=== PATIENT | female | born 1995 | race Caucasian/White ===

== ENCOUNTER 2023-01-15 20:30 | Outpatient (REF) | payer BC, SELFPAY ==
[2023-01-18 10:09] LABS: Age Gdln ACOG Testing Note (.); IGP, rfx Aptima HPV ASCU Note (.)
== END 2023-01-15 20:31 | disposition home or self-care (01) ==
LOC: LAB 20:30
PROVIDERS: Visit Provider Obstetrics & Gynecology
DX: R87.612 Low grade squamous intraepithelial lesion on cytologic smear of cervix (LGSIL) (principal); Z11.51 Encounter for screening for human papillomavirus (HPV); Z12.4 Encounter for screening for malignant neoplasm of cervix
CPT/HCPCS: 87624; G0145

== ENCOUNTER 2023-02-18 07:37 | Outpatient (OUT) | payer BC, SELFPAY ==
--- NOTE | 2023-02-18 | US_ITS ---
[address] [address] Patient Name: MARISA ADAN MRN: [id number] date: 1995 Sex: F Assigned Patient Location: Current Patient Location: Accession/Order Number: [id number] Exam Date: 02/18/2023 07:55 Report Date: 02/18/2023 08:53 At the request of: ANGIE TERAN Procedure: US pelvis transvaginal EXAMINATION: US pelvis transvaginal HISTORY: PCOS E28.2 COMPARISON: No relevant comparison available. TECHNIQUE: Transabdominal and/or transvaginal sonographic examination was performed as indicated by examination type. FINDINGS: UTERUS: Normal size and appearance. Uterus size: 7. 63.1 x 4.4 cm ENDOMETRIUM: Normal homogeneous appearance. Endometrial thickness: 6 mm RIGHT OVARY: Normal size and appearance. Duplex Doppler demonstrates normal waveform and flow; resistive index 0.5. Ovary size: 4.1 x 2.0 x 2.5 cm LEFT OVARY: Normal size and appearance. Duplex Doppler demonstrates normal waveform and flow; resistive index 0.5. Ovary size: 2.6 x 1.7 x 2.8 cm CUL-DE-SAC: Unremarkable. No significant free fluid. BLADDER: Unremarkable. OTHER: None. US/US pelvis transvaginal IMPRESSION: 1. Normal pelvic ultrasound. No ultrasound findings to suggest polycystic ovarian syndrome. Electronically authenticated by: JOSÉ MIGUEL LIMON Date: 02/18/2023 08:53
[2023-02-18 08:31] LABS: Basophils Absolute Auto 0.1 10^3/uL (0.0-0.1); Basophils Percent Auto 0.8 % (0.2-2.0); Eosinophils Absolute Auto 0.7 10^3/uL (0.0-0.7); Eosinophils Percent Auto 6.9 % (0.9-7.0); Hematocrit 44.3 % (36.0-48.0); Immature Granulocytes Abs Auto 0.06 10^3/uL (0.00-0.03); Immature Granulocytes Pct Auto 0.6 % (0.0-0.5); Lymphocytes Absolute Auto 3.2 10^3/uL (1.2-3.8); Lymphocytes Percent Auto 32.5 % (20.5-60.0); Mean Corpuscular HGB Conc 33.9 g/dL (29.9-35.2); Mean Corpuscular Hemoglobin 30.8 pg (26.7-34.0); Mean Platelet Volume 10.1 fL (9.5-13.5); Monocytes Absolute Auto 0.8 10^3/uL (0.3-0.8); Monocytes Percent Auto 7.9 % (1.7-12.0); Neutrophils Percent Auto 51.3 % (43.0-75.0); Platelet Count 250 10^3/uL (150-450); Red Blood Count 4.87 10^6/uL (4.20-5.40); Red Cell Distribution Width 12.3 % (11.0-15.0); White Blood Count 9.7 10^3/uL (4.0-11.0)
[2023-02-18 08:57] LABS: Estimated Average Glucose 100 mg/dL; Glycohemoglobin A1C 5.1 % (4.5-6.2)
[2023-02-18 10:03] LABS: Free T4 0.85 ng/dL (0.76-1.46)
[2023-02-18 10:07] LABS: HCG Quantitative <1 mIU/mL; Thyroid Stimulating Hormone 2.443 uIU/mL (0.358-3.740)
[2023-02-19 04:09] LABS: FSH 5.6 mIU/mL (.); Luteinizing Hormone(LH) 15.6 mIU/mL (.)
[2023-02-22 09:09] LABS: DHEA, Serum 192 ng/dL (31-701)
== END 2023-02-18 07:38 | disposition home or self-care (01) ==
LOC: US 07:37
PROVIDERS: Visit Provider Obstetrics & Gynecology
DX: E28.2 Polycystic ovarian syndrome (principal)
CPT/HCPCS: 36415; 76830; 82626; 82627; 83001; 83002; 83036; 84439; 84443; 84702; 85025

== ENCOUNTER 2023-05-21 21:15 | Outpatient (REF) | payer BC, SELFPAY ==
[2023-05-26 17:06] LABS: Age Gdln ACOG Testing Note (.); HPV Aptima Negative (Negative); IGP, Aptima HPV, rfx 16/18,45 Note (.)
== END 2023-05-21 21:16 | disposition home or self-care (01) ==
LOC: LAB 21:15
PROVIDERS: Visit Provider Obstetrics & Gynecology
DX: R87.612 Low grade squamous intraepithelial lesion on cytologic smear of cervix (LGSIL) (principal); Z12.4 Encounter for screening for malignant neoplasm of cervix
CPT/HCPCS: 87624; G0145

== ENCOUNTER 2023-06-27 12:26 | Outpatient (OUT) | payer BC, SELFPAY ==
--- OUTSIDE RECORDS SUMMARY | 2023-06-27 12:29 | XMS_ITS | CCD ---
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 Name Role Phone Unavailable Primary Care Provider UnavailMORALES Renner Referring Unavailable NON STAFF Primary Care Provider UnavailDO Dom Cerda Jr Attending Provider [phone] Bhavya Estrada Primary Care Unavailable Klpatria, Bhavya Primary Care Unavailable Bhavya Estrada Attending Unavailable Sean, Bhavya Primary Care Unavailable JEFFRY ., DR ADAMS Admitting Unavailable JEFFRY ., DR ADAMS Attending Unavailable JEFFRY ., DR ADAMS Consulting Unavailable ZIEBER, DR JOSÉ MIGUEL Garcia Consulting Unavailable JEFFRY ., DR ADAMS Admitting Unavailable JEFFRY ., DR ADAMS Attending Unavailable JEFFRY ., DR ADAMS Consulting Unavailable ANDERSON MORRIS Consulting Unavailable MATILDA IIPANFILO Consulting Unavailable SULEIMAN MENDOZA Consulting Unavailable JEFFRY ., DR ADAMS Attending Unavailable JEFFRY ., DR ADAMS Consulting Unavailable JEFFRY ., DR ADAMS Admitting Unavailable ANGIE VIVAR Attending Unavailable Allergies Allergy Classification Reported Allergen(s) Allergy Type Date of Onset Reaction(s) Facility (2 sources) Amoxicillin; Translations: [amoxicillin] Drug Allergy [facility] Repository (1 source) tiZANidine; Translations: [tiZANidine] Drug Allergy [facility] Repository Problems Problem Classification Problem Date Documented Date Episodic/Chronic Cancer of cervix (5 sources) Low grade squamous intraepithelial lesion on cytologic smear of cervix (LGSIL); Translations: [High grade squamous intraepithelial lesion on cytologic smear of cervix (HGSIL)] Onset: 08-20-2022 Episodic Immunizations and screening for infectious disease (1 source) Encounter for screening for human papillomavirus (HPV); Translations: [ENC SCREENING HUMAN PAPILLOMAVIRUS] Onset: 06-16-2022 Episodic Other screening for suspected conditions (not mental disorders or infectious disease) (4 sources) Encounter for screening for malignant neoplasm of cervix; Translations: [ENC SCREENING MALIG NEOPLASM CERV] Onset: 06-13-2022 Episodic Substance-related disorders (1 source) Nicotine dependence, other tobacco product, uncomplicated; Translations: [NICOTINE DEPEND OTH TOB PROD UNCOMP] Onset: 08-20-2022 Chronic Results Test Name Value Interpretation Reference Range Facility CBC AUTO DIFFon 08-23-2022 BASO # 0.1 103/ul Normal 0.0-0.1 [facility] Comment on above: Performed By: #### C BC #### [facility] [address] [address] [address] Car Lozada Basophils/100 WBC (Bld) 0.5 % Normal 0.2-2.0 [facility] Comment on above: Performed By: #### C BC #### [facility] [address] [address] [address] Car Lozada EO # 0.6 103/ul Normal 0.0-0.7 [facility] Comment on above: Performed By: #### C BC #### [facility] [address] [address] [address] Car Lozada Eosinophils/100 WBC (Bld) 5.9 % Normal 0.9-7.0 [facility] Comment on above: Performed By: #### C BC #### [facility] [address] [address] [address] Car Lozada Erythrocyte distribution width (RBC) [Ratio] 12.6 % Normal 11.0-15.0 [facility] Comment on above: Performed By: #### C BC #### [facility] [address] [address] [address] Car Lozada Hematocrit (Bld) [Volume fraction] 42.0 % Normal 36.0-48.0 [facility] Comment on above: Performed By: #### C BC #### [facility] [address] [address] [address] Car Lozada Hemoglobin (Bld) [Mass/Vol] 14.1 g/dL Normal 12.0-16.0 [facility] Comment on above: Performed By: #### C BC #### [facility] [address] [address] [address] Car Lozada IG # 0.04 10e3/ul Critically high 0.00-0.03 [facility] Comment on above: Performed By: #### C BC #### [facility] [address] [address] [address] Car Lozada IG % 0.4 % Normal 0.0-0.5 [facility] Comment on above: Performed By: #### C BC #### [facility] [address] [place] [address] Dr. Car Lozada LYMPH # 3.6 103/ul Normal 1.2-3.8 [facility] Comment on above: Performed By: #### C BC #### [facility] [address] [place] [address] Dr. Car Lozada Lymphocytes/100 WBC (Bld) 34.7 % Normal 20.5-60.0 [facility] Comment on above: Performed By: #### C BC #### [facility] [address] [place] [address] Dr. Car Lozada MANUAL DIFF REQ NO Normal [facility] Comment on above: Performed By: #### C BC #### [facility] [address] [place] [address] Dr. Car Lozada MCH (RBC) [Entitic mass] 31.2 pg Normal 26.7-34.0 [facility] Comment on above: Performed By: #### C BC #### [facility] [address] [place] [address] Dr. Car Lozada MCHC (RBC) [Mass/Vol] 33.6 g/dL Normal 29.9-35.2 [facility] Comment on above: Performed By: #### C BC #### [facility] [address] [place] [address] Dr. Car Lozada MCV (RBC) [Entitic vol] 92.9 fL Normal 81.0-99.0 [facility] Comment on above: Performed By: #### C BC #### [facility] [address] [address] [address] Car Lozada MONO # 0.9 103/ul Critically high 0.3-0.8 [facility] Comment on above: Performed By: #### C BC #### [facility] [address] [address] [address] Car Lozada Monocytes/100 WBC (Bld) 8.3 % Normal 1.7-12.0 [facility] Comment on above: Performed By: #### C BC #### [facility] [address] [place] [address] Dr. Car Lozada NEUT # 5.2 103/ul Normal 1.4-6.5 [facility] Comment on above: Performed By: #### C BC #### [facility] [address] [place] [address] Dr. Car Lozada Neutrophils/100 WBC (Bld) 50.2 % Normal 43.0-75.0 [facility] Comment on above: Performed By: #### C BC #### [facility] [address] [place] [address] Dr. Car Lozada Platelet mean volume (Bld) [Entitic vol] 10.0 fL Normal 9.5-13.5 [facility] Comment on above: Performed By: #### C BC #### [facility] [address] [place] [address] Dr. Car Lozada PLT 251 103/ul Normal 150-450 [facility] Comment on above: Performed By: #### C BC #### [facility] [address] [place] [address] Dr. Car Lozada RBC 4.52 106/ul Normal 4.20-5.40 [facility] Comment on above: Performed By: #### C BC #### [facility] [address] [place] [address] Dr. Car Lozada WBC 10.3 103/ul Normal 4.0-11.0 [facility] Comment on above: Performed By: #### C BC #### [facility] [address] [address] [address] Car Lozada PREG QUANT HCGon 08-23-2022 HCG QUANT <1 Normal [facility] Comment on above: Performed By: #### P REGQNT #### [facility] [address] [address] [address] Car Lozada HCG RANGE SEE BELOW Normal [facility] Comment on above: Result Comment: 5-50 0.2-1 WEEK 50-500 1-2 WEEKS 100-5,000 2-3 WEEKS 500-10,000 3-4 WEEKS 1,000-50,000 4-5 WEEKS 10,000-100,000 5-6 WEEKS 15,000-200,000 6-8 WEEKS 10,000-100,000 2-3 MONTHS Performed By: #### P REGQNT #### [facility] [address] [place] [address] Dr. Car Lozada XR CHEST 2 Von 08-16-2022 XR CHEST 2 V EXAMINATION: XR CHEST 2 V HISTORY: Electronic cigarette user COMPARISON: No relevant comparison available. FINDINGS: LUNGS: No significant pulmonary parenchymal abnormalities. VASCULATURE: No increased pulmonary vasculature. PLEURA: No pneumothorax, effusion, or pleural thickening. CARDIAC: No cardiomegaly or cardiac silhouette abnormality. MEDIASTINUM: No visible mass or adenopathy. BONES: No fracture or visible bone lesion. OTHER: Negative. IMPRESSION: 1. No acute cardiopulmonary process or suspicious findings. Electronically authenticated by: JOSÉ MIGUEL LIMON Date: 2022-08-16 10:17 Normal [facility] PAP ACOG PANEL 2: 19 to 27on 06-25-2022 . . Normal [facility] Comment on above: Performed By: #### [id number] #### [facility] [address] [place] [address] Dr. Car Lozada Age Gdln ACOG Testing 19- Normal [facility] Comment on above: Performed By: #### [id number] #### [facility] [address] [place] [address] Dr. Car Lozada DIAGNOSIS: Comment Abnormal [facility] Comment on above: Result Comment: EPIT HELIAL CELL ABNORMALITY. LOW GRADE SQUAMOUS INTRAEPITHELIAL LESION (LSIL). Performed By: #### 4 [id number] #### [facility] [address] [place] [address] Dr. Car Lozada Electronically signed by: Comment Normal [facility] Comment on above: Result Comment: Phyllis Vital MD, Pathologist Performed By: #### 4 [id number] #### [facility] [address] [place] [address] Dr. Car Lozada Methodology: Comment Normal [facility] Comment on above: Result Comment: This liquid based ThinPrep(R) pap test was screened with the use of an image guided system. Performed By: #### [id number] #### [facility] [address] [place] [address] Dr. Car Lozada Note: Comment Normal [facility] Comment on above: Result Comment: The Pap smear is a screening test designed to aid in the detection of premalignant and malignant conditions of the uterine cervix. It is not a diagnostic procedure and should not be used as the sole means of detecting cervical cancer. Both false-positive and false-negative reports do occur. . Performed By: #### 4 [id number] #### [facility] [address] [place] [address] Dr. Car Lozada Pathologist Provided ICD10 Comment Normal [facility] Comment on above: Result Comment: [id number] Performed By: #### 4 [id number] #### [facility] [address] [place] [address] Dr. Car Lozada Performed by: Comment Normal [facility] Comment on above: Result Comment: Sidney Masters, County Tax Assessor (ASCP) Performed By: #### [id number] #### [facility] [address] [place] [address] Dr. Car Lozada Recommendation: Comment Abnormal [facility] Comment on above: Result Comment: Sugg est follow up as clinically appropriate. Performed By: #### 4 [id number] #### [facility] [address] [place] [address] Dr. Car Lozada Reflex Criteria: Comment Normal [facility] Comment on above: Result Comment: The HPV DNA reflex criteria were not met with this specimen result therefore, no HPV testing was performed. . Performed By: #### 4 [id number] #### [facility] [address] [address] [address] Car Lozada Specimen adequacy: Comment Normal [facility] Comment on above: Result Comment: Sati sfactory for evaluation. Endocervical and/or squamous metaplastic cells (endocervical component) are present. Performed By: #### 4 [id number] #### [facility] [address] [address] [address] Car Lozada Body fluid albumin measureme nt (mass/volume)Ordered By: Dom Paulino on 12-22-2021 Albumin (Body fld) [Mass/Vol] 3.4 g/dL 3.2-5.5 [facility] Cholesterol [Mass/volume] in Serum or PlasmaOrdered By: Dom Paulino on 12-22-2021 Cholesterol [Mass/Vol] 228 mg/dL 140-200 [facility] Comment on above: Chol less than 200 m g/dl low risk Chol 201-239 mg/dl borderline risk Chol 240 mg/dl and greater high risk Cholesterol in LDL Calc [Mas s/Vol]Ordered By: Dom Paulino on 12-22-2021 Cholesterol in LDL [Mass/Vol] 136 mg/dL 0-100 [facility] Comment on above: LDL ATP III CLASSIFI CATION LDL less than 100 mg/dL Optimal LDL 100-129 mg/dL Near or above optimal LDL 130-159 mg/dL Borderline high LDL 160-189 mg/dL High LDL greater than 189 mg/dL Very high Cholesterol in VLDL Calc [Ma ss/Vol]Ordered By: Dom Paulino on 12-22-2021 Cholesterol in VLDL [Mass/Vol] 19 mg/dL [facility] Comprehensive Metabolic Empo n 12-22-2021 Albumin [Mass/Vol] 3.4 g/dL Normal 3.2-5.5 [facility] Comment on above: Performed By: #### E BS CMP, EBS LIPID #### [facility] [address] Albumin/Globulin [Mass ratio] 1.2 {ratio} Normal [facility] Comment on above: Performed By: #### E BS CMP, EBS LIPID #### [facility] [address] [id number] [place] ALP [Catalytic activity/Vol] 48 U/L Normal 32-92 [facility] Comment on above: Performed By: #### E BS CMP, EBS LIPID #### [facility] [address] [place] [address] [place] ALT [Catalytic activity/Vol] 14 U/L Normal 10-60 [facility] Comment on above: Performed By: #### E BS CMP, EBS LIPID #### [facility] [address] [id number] [place] AST [Catalytic activity/Vol] 15 U/L Normal 10-42 [facility] Comment on above: Performed By: #### E BS CMP, EBS LIPID #### [facility] [address] Bilirubin [Mass/Vol] 0.3 mg/dL Normal 0.3-1.2 [facility] Comment on above: Performed By: #### E BS CMP, EBS LIPID #### [facility] [address] [place] [address] [place] Calcium [Mass/Vol] 9.3 mg/dL Normal 8.2-10.2 [facility] Comment on above: Performed By: #### E BS CMP, EBS LIPID #### [facility] [address] [id number] [place] Chloride [Moles/Vol] 101 mmol/L Normal 95-114 [facility] Comment on above: Performed By: #### E BS CMP, EBS LIPID #### [facility] [address] [id number] [place] CO2 [Moles/Vol] 23.8 mmol/L Normal 22.0-30.0 [facility] Comment on above: Performed By: #### E BS CMP, EBS LIPID #### [facility] [address] [id number] [place] Creatinine [Mass/Vol] 0.79 mg/dL Normal 0.44-1.03 [facility] Comment on above: Performed By: #### E BS CMP, EBS LIPID #### [facility] [address] [place] [address] [place] Estimated GFR ( Aleena > 60 Normal [facility] Comment on above: Result Comment: GFR estimated reference range: According to KDOQI guidelines, <60 ml/min/1.73m2 is sufficient to diagnose a patient with chronic kidney disease. Performed By: #### E BS CMP, EBS LIPID #### [facility] [address] [place] [address] [place] Estimated GFR (Non- Am > 60 Normal [facility] Comment on above: Performed By: #### E BS CMP, EBS LIPID #### [facility] [address] Globulin (S) [Mass/Vol] 2.8 g/dL Normal [facility] Comment on above: Performed By: #### E BS CMP, EBS LIPID #### [address] Glucose [Mass/Vol] 76 mg/dL Normal 70-100 [facility] Comment on above: Performed By: #### E BS CMP, EBS LIPID #### [address] Potassium [Moles/Vol] 3.8 mmol/L Normal 3.5-5.1 [facility] Comment on above: Performed By: #### E BS CMP, EBS LIPID #### [facility] [address] [place] [address] [place] Protein [Mass/Vol] 6.2 g/dL Normal 6.1-7.9 [facility] Comment on above: Performed By: #### E BS CMP, EBS LIPID #### [facility] [address] [place] [address] [place] Sodium [Moles/Vol] 136 mmol/L Normal 136-146 [facility] Comment on above: Performed By: #### E BS CMP, EBS LIPID #### [facility] [address] Urea nitrogen [Mass/Vol] 10 mg/dL Normal 9-23 [facility] Comment on above: Performed By: #### E BS CMP, EBS LIPID #### [facility] [address] [id number] [facility] Creatinine and Glomerular fi ltration rate.predicted panel (S/P/Bld)Ordered By: Dom Paulino on 12-22-2021 Creatinine [Mass/Vol] 0.79 mg/dL 0.44-1.03 [facility] Estimated glomerular filtrat ion rate (GFR) non- AmericanOrdered By: Dom Paulino on 12-22-2021 GFR/1.73 sq M.predicted among non-blacks MDRD (S/P/Bld) [Vol rate/Area] > 60 mL/Min [facility] Globulin Calc (S) [Mass/Vol] Ordered By: Dom Paulino on 12-22-2021 Globulin (S) [Mass/Vol] 2.8 g/dL [facility] - Chemistry and C hemistry - challengeOrdered By: Dom Paulino on 12-22-2021 Glucose [Mass/Vol] 76 mg/dL 70-100 [facility] Lipid Profileon 12-22-2021 Cholesterol [Mass/Vol] 228 mg/dL High 140-200 [facility] Comment on above: Result Comment: Chol less than 200 mg/dl low risk Chol 201-239 mg/dl borderline risk Chol 240 mg/dl and greater high risk Performed By: #### E BS CMP, EBS LIPID #### [facility] [address] [id number] [place] Cholesterol in HDL [Mass/Vol] 73 mg/dL Normal 35-85 [facility] Comment on above: Result Comment: HDL CHOL ATP-III CLASSIFICATION Cardiovascular Risk HDL > or equal to 60 mg/dL LOW HDL < 40 mg/dL HIGH Performed By: #### E BS CMP, EBS LIPID #### [facility] [address] [id number] [facility] Cholesterol.total/Janey sterol in HDL [Mass ratio] 3.1 {ratio} Normal <5.0 [facility] Comment on above: Result Comment: PERF ORMED BY: [facility] [address] [place] [address] PATHOLOGIST CANVAS BASTER DENYS WOO M.D. Performed By: #### E BS CMP, EBS LIPID #### [facility] [address] LDL Cholesterol,Calculated 136 mg/dL High 0-100 [facility] Comment on above: Result Comment: LDL ATP III CLASSIFICATION LDL less than 100 mg/dL Optimal LDL 100-129 mg/dL Near or above optimal LDL 130-159 mg/dL Borderline high LDL 160-189 mg/dL High LDL greater than 189 mg/dL Very high Performed By: #### E BS CMP, EBS LIPID #### [facility] [address] Triglyceride w/Reflex 95 mg/dL Normal 35-149 [facility] Comment on above: Result Comment: TRIG ATP III CLASSIFICATION TRIG less than 150 mg/dL Normal TRIG 150-199 mg/dL Borderline high TRIG 200-500 mg/dL High TRIG greater than 500 mg/dL Very high Standard traceable to the Center for Disease Conrtrol and Prevention (CDC) test method. Performed By: #### E BS CMP, EBS LIPID #### [facility] [address] VLDL CHOLESTEROL 19 mg/dL Normal [facility] Comment on above: Performed By: #### E BS CMP, EBS LIPID #### [facility] [address] No Panel InformationOrdered By: Dom Paulino on 12-22-2021 Estimated GFR () > 60 mL/Min [facility] Comment on above: GFR estimated refere nce range: According to KDOQI guidelines, <60 ml/min/1.73m2 is sufficient to diagnose a patient with chronic kidney disease. Pharmacy Creatinine Clearance (Chem N/A [facility] Triglycerides Reflex 95 mg/dL 35-149 [facility] Comment on above: TRIG ATP III CLASSIF ICATION TRIG less than 150 mg/dL Normal TRIG 150-199 mg/dL Borderline high TRIG 200-500 mg/dL High TRIG greater than 500 mg/dL Very high Standard traceable to the Center for Disease Conrtrol and Prevention (CDC) test method. Protein [Mass/volume] in Ser um or PlasmaOrdered By: Dom Paulino on 12-22-2021 Protein [Mass/Vol] 6.2 g/dL 6.1-7.9 [facility] Serum or plasma alanine pan otransferase measurement without P-5'-P (enzymatic activiOrdered By: Dom Paulino on 12-22-2021 ALT No additional P-5'-P [Catalytic activity/Vol] 14 U/L 10-60 [facility] Serum or plasma albumin/glob ulin mass ratioOrdered By: Dom Paulino on 12-22-2021 Albumin/Globulin [Mass ratio] 1.2 {ratio} [facility] Serum or plasma alkaline nina sphatase measurement (enzymatic activity/volume)Ordered By: Dom Paulino on 12-22-2021 ALP [Catalytic activity/Vol] 48 U/L 32-92 [facility] Serum or plasma aspartate am inotransferase measurement (enzymatic activity/volume)Ordered By: Dom Paulino on 12-22-2021 AST [Catalytic activity/Vol] 15 U/L 10-42 [facility] Serum or plasma calcium dexter urement (mass/volume)Ordered By: Dom Paulino on 12-22-2021 Calcium [Mass/Vol] 9.3 mg/dL 8.2-10.2 [facility] Serum or plasma chloride glenis surement (moles/volume)Ordered By: Dom Paulino on 12-22-2021 Chloride [Moles/Vol] 101 mmol/L 95-114 [facility] Serum or plasma high density lipoprotein (HDL) cholesterol measurementOrdered By: Dom Paulino on 12-22-2021 Cholesterol in HDL [Mass/Vol] 73 mg/dL 35-85 [facility] Comment on above: HDL CHOL ATP-III CLA SSIFICATION Cardiovascular Risk HDL > or equal to 60 mg/dL LOW HDL < 40 mg/dL HIGH Serum or plasma potassium me asurement (moles/volume)Ordered By: Dom Paulino on 12-22-2021 Potassium [Moles/Vol] 3.8 mmol/L 3.5-5.1 [facility] Serum or plasma sodium measu rement (moles/volume)Ordered By: Dom Paulino on 12-22-2021 Sodium [Moles/Vol] 136 mmol/L 136-146 [facility] Serum or plasma total biliru bin measurement (mass/volume)Ordered By: Dom Paulino on 12-22-2021 Bilirubin [Mass/Vol] 0.3 mg/dL 0.3-1.2 [facility] Serum or plasma total carbon dioxide measurement (moles/volume)Ordered By: Dom Paulino on 12-22-2021 CO2 [Moles/Vol] 23.8 mmol/L 22.0-30.0 [facility] Serum or plasma total choles terol/high density lipoprotein (HDL) cholesterol mass ratOrdered By: Dom Paulino on 12-22-2021 Cholesterol.total/Janey sterol in HDL [Mass ratio] 3.1 {ratio} [facility] Serum or plasma urea nitroge n measurement (mass/volume)Ordered By: Dom Paulino on 12-22-2021 Urea nitrogen [Mass/Vol] 10 mg/dL 9-23 [facility] Outside Recordson 09-13-2021 Outside Records [id number][facility]20[facility] Outside Records [id number] #[facility] [id number] #[facility] 07-14-2021 Consent Forms [id number] #1.00[facility] Progress Note - Nurseon Progress Note - Nurse Antigen test ordered, test resulted positive, patient informed of positive result. In house test ordered, patient informed and swabbed, specimen sent to lab. [Electronically Signed on: 07/11/2021 16:04 EST] Kamini Tovar RN [Verified on: 07/11/2021 16:04 EST] Kamini Tovar RN [facility] Progress Note - Nurse Antigen test ordered, test resulted negative, patient informed of negative result. [Electronically Signed on: 07/11/2021 11:45 EST] Kamini Tovar RN [Verified on: 07/11/2021 11:45 EST] Kamini Tovar RN [facility] Measles (Rubeola) Imon 11-28 Measles (Rubeola) Im 3.49 Normal >1.09 [facility] Comment on above: Result Comment: Interpretation: IMMUNE Reference Range: <0.91 Not Immune 0.91-1.09 Equivocal >1.09 Immune Performed By: #### M EI, JUDY, VZI, TSPOT, MEÑO #### [address] [address] Practice Physician: Maury Watts MD Mumps,Immun,Abon 11-28-2020 Mumps,Immun,Ab 1.48 Normal >1.09 [facility] Comment on above: Result Comment: Interpretation: IMMUNE Reference Range: <0.91 Not Immune 0.91-1.09 Equivocal >1.09 Immune Performed By: #### M EI, JUDY, VZI, TSPOT, MEÑO #### [address] [address] Practice Physician: Maury Watts MD T-Spoton 11-28-2020 T-Spot. TB Test Normal [facility] Comment on above: Result Comment: [address] [place] [address] (NOTE) T-SPOT.TB Test Results --------- T-SPOT TB Negative Normal Value: Negative A negative test result does not exclude the possibility of exposure to or infection with Mycobacterium tuberculosis (M tuberculosis). Patients with recent exposure to TB infected individuals exhibiting a negative T-SPOT.TB result should be considered for retesting within 6 weeks or if other relevant clinical symptoms indicate. Results from T-SPOT.TB testing must be used in conjunction with each individual's epidemiological history, current medical status, and results of other diagnostic evaluations. The T-SPOT.TB test is qualitative and results are reported as positive, borderline or negative, given that the test controls perform as expected. In line with the Centers for Disease Control and Prevention's 2010 recommendation to report quantitative measurements alongside the qualitative result, the laboratory provides spot counts for information purposes only. The T-SPOT.TB test should be interpreted as a quantitative test. Panel A Spot Count (Corrected for Negative Control) 0 Panel B Spot Count (Corrected for Negative Control) 0 Negative Control Passed Positive Control Passed Performed By: #### M EI, JUDY, VZI, TSPOT, MEÑO #### [facility] [address] [place], [place] [id number] Practice Physician: Maury Watts MD VZ Immunityon 11-28-2020 VZ Immunity 2.04 Normal >1.09 [facility] Comment on above: Result Comment: Interpretation: IMMUNE Reference Range: <0.91 Not Immune 0.91-1.09 Equivocal >1.09 Immune Performed By: #### M EI, JUDY, VZI, TSPOT, MEÑO #### [facility] [address] [place], [place] [id number] Practice Physician: Maury Watts MD Rubella Ab, IgGon 11-25-2020 Rubella Ab, IgG 150.4 IU/mL Normal [facility] Comment on above: Result Comment: REFERENCE RANGE: <5.0 NON-REACTIVE (non-immune) 5.0 TO 9.9 EQUIVOCAL >=10.0 REACTIVE (immune) Performed By: #### M EI, JUDY, VZI, TSPOT, MEÑO #### [facility] [address] [place] [address] Practice Physician: Maury Watts MD Rubella antibody, IgGOrdered By: Morales Gardner on 11-25-2020 Rubella virus IgG Ql (S) 150.4 IU/mL [facility] Work Phone: Comment on above: REFERENCE RANGE: <5.0 NON-REACTIVE (non-immune) 5.0 TO 9.9 EQUIVOCAL >=10.0 REACTIVE (immune) [facility] [employer] Phone: Encounters Encounter Date Encounter Type Care Provider Facility Start: 05-21-2023 End: 05-21-2023 ambulatory ANGIE VIVAR Not Available Start: 08-23-2022 End: 08-23-[address] ANGIE VIVAR . Facility: Start: 08-20-2022 Encounter for preprocedural respiratory examination DR ANGIE VIVAR . [facility] Start: 08-16-2022 End: 08-17-[address] ANGIE VIVAR . Facility: Start: 08-16-2022 End: 08-17-2022 Encounter for preprocedural respiratory examination DR ANGIE VIVAR . Facility: Start: 06-13-2022 End: 06-13-[address] ANGIE VIVAR . Facility: Start: 04-26-2022 End: 04-27-2022 ambulatory Bhavya Estrada Facility:[facility] Start: 12-22-2021 End: 12-22-2021 Departed [facility]erred [facility] [address] Start: 07-13-2021 End: 07-13-2021 [facility] Start: 07-12-2021 End: 07-12-2021 ambulatory [facility] Facility:[facility] Start: 11-25-2020 End: 11-26-2020 ambulatory MORALES GARDNER [facility] Start: 11-25-2020 End: 11-25-2020 Subsequent hospital visit by physician [facility] Laboratory Procedures Date Procedure Procedure Detail Performing Clinician Start: 11-25-2020 Antibody rubella Omkar Gardner MD Work Phone: Plan of Treatment Date Care Activity Detail Author Start: 03-08-2021 Influenza vaccination Flu vacc ine (Season Ended) [facility] Phone: Start: 2005 COVID-19 Vaccine (1) COVID-19 Vaccin e (1) [facility] Phone: End: 11-25-2020 Mumps Antibody, IgG Mumps Antibody, IgG Lab Routine Once for 1 Occurrences starting 11/25/2020 until 11/25/2020 [facility] Phone: Comment on above: Once for 1 Occurrenc es starting 11/25/2020 until 11/25/2020 Mumps Antibody, IgG Mumps Antibo dy, IgG Lab Routine 11/25/2020 3:18 PM EDT [facility] Phone: End: 11-25-2020 Rubeola Antibody, IgG Rubeola Antibody, IgG Lab Routine Once for 1 Occurrences starting 11/25/2020 until 11/25/2020 [facility] Phone: Comment on above: Once for 1 Occurrenc es starting 11/25/2020 until 11/25/2020 Rubeola Antibody, IgG Rubeola An tibody, IgG Lab Routine 11/25/2020 3:18 PM EDT [facility] Phone: End: 11-25-2020 Tb antigen response gamma interferon t-cell susp T-Spot TB Test Lab Routine Once for 1 Occurrences starting 11/25/2020 until 11/25/2020 [facility] Phone: Comment on above: Once for 1 Occurrenc es starting 11/25/2020 until 11/25/2020 Tb antigen response gamma interferon t-cell susp T-Spot TB Test Lab Routine 11/25/2020 3:18 PM EDT [facility] Phone: End: 11-25-2020 Varicella Zoster Antibody, IgG Varicella Zoster Antibody, IgG Lab Routine Once for 1 Occurrences starting 11/25/2020 until 11/25/2020 [facility] Phone: Comment on above: Once for 1 Occurrenc es starting 11/25/2020 until 11/25/2020 Varicella Zoster Antibody, IgG Varicella Zoster Antibody, IgG Lab Routine 11/25/2020 3:18 PM EDT [facility] Phone: Payers Date Payer Category Payer Unknown [id number] 2020 Unknown [id number] 1993 Unknown [id number] 2.16.84 [id number] 1993 Unknown [id number] 2.16.84 [id number] 1993 Unknown [id number] 2.16.84 [id number] 1993 Unknown [id number] 2.16.84 [id number] 1993 Unknown [id number] 1959 Unknown [id number] Self-pay Self Pay [id number] Social History Date Type Detail Facility Tobacco smoking stat [facility] Unknown if ever smoked [facility] Phone: Start: 1995 Sex Assigned At Not on file M [employer] Phone: Start: 1995 Sex Assigned At Female F [facility] Clinical Note 08-23-2022 Note Date & Type Note Facility 08-23-2022 Note OPERATIVE NOTE OPERATION DATE: 08/23/2022 PROCEDURE: LEEP Procedure. PREOPERATIVE DIAGNOSIS: Cervical dysplasia. POSTOPERATIVE DIAGNOSIS: Cervical dysplasia. ANESTHESIA: General. SURGEON: Angie Vivar D.O. ASSISTANT MERCHANDISER: None. BLOOD LOSS: 5 mL. SPECIMEN: Ectocervical tissue. FINDINGS: Cervical dysplasia at the 2, 7 and 10 positions. PROCEDURE: Patient was taken back to the Operating Room where she was given general anesthesia without difficulty. She was then placed in the dorsal lithotomy position. She was then prepped and draped in the normal sterile fashion. A weighted speculum was placed into the patient's vagina. The anterior lip of the cervix was identified and grasped with a single-tooth tenaculum. The patient's cervix was then copiously irrigated using vinegar. Then, a Lugol Solution was also placed onto the patient's cervix which demonstrated increased uptake of the Lugol solution at the 2 o'clock, 7 o'clock and 10 o'clock positions. At that time, the LEEP portion of the procedure was performed, including the 2 o'clock, 7 o'clock and 10 o'clock positions. The ectocervix was sent out to Pathology. The patient's cervix was then coagulated using suction cautery. Excellent hemostasis was assured. Monsel Solution was then placed onto the patient's cervix to help maintain adequate hemostasis. All instruments were removed from the patient's vagina. The anterior lip of the cervix demonstrated excellent hemostasis. The patient tolerated the procedure well. Sponge, lap, and needle counts were correct x 2. The patient was taken to Recovery Room in stable condition. [facility] Medication management note 06-11-2022 Note Date & Type Note Facility 06-11-2022 Note Entered by Diane Wadsworth on June 11, 2022 09:44:53 EST From: Diane Wadsworth To: [id number] Sent: 06/11/2022 09:44:53 EST Subject: Medication Management Submitted: Complete:desogestrel-ethinyl estradiol (Velivet oral tablet) Signed by Diane Wadsworth 06/11/2022 09:44:00 EST Approved desogestrel-ethinyl estradiol (VELIVET 28 DAY TABLET) take 1 tablet by mouth once daily Qty: 84 tab(s) Days Supply: 84 Refills: 0 Substitutions Allowed Route To Pharmacy - [id number] Signed by Diane Wadsworth Patient matched by Diane Wadsworth on 06/11/2022 09:41:06 EST From: [id number] To: Bhavya Estrada MD Sent: June 11, 2022 8:39:02 AM [employer] MACHINE Subject: Medication Management Due: June 12, 2022 12:05:33 AM [employer] MACHINE On Hold Pending Signature Drug: desogestrel-ethinyl estradiol (Velivet oral tablet), take 1 tablet by mouth once daily Quantity: 84 tab(s) Days Supply: 84 Refills: 1 Substitutions Allowed Notes from Pharmacy: Dispensed Drug: desogestrel-ethinyl estradiol (Velivet oral tablet), take 1 tablet by mouth once daily Quantity: 84 tab(s) Days Supply: 84 Refills: 0 Substitutions Allowed Notes from Pharmacy: [facility] Evaluation note Note Date & Type Note Facility Evaluation note No assessment information availa [facility] Work Phone: Summary Purpose Family History No Family History Records FoundNo Family History Records FoundNo Family History Records FoundNo Family History Records FoundNo Family History Records Found Advance Directives No Advanced Directives Records FoundNo Advanced Directives Records FoundNo Advanced Directives Records FoundNo Advanced Directives Records FoundNo Advanced Directives Records Found Chief Complaint and Reason for Visit 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 Complaint 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 Additional Source Comments INFORMATION SOURCE (unrecogn ized section and content) DATE CREATED AUTHOR 12/02/2020 [facility] DATE CREATED AUTHOR AUTHOR'S ORGANIZ ATION 12/23/2021 [facility] DATE CREATED AUTHOR AUTHOR'S ORGANIZ ATION 06/11/2022 [facility] DATE CREATED AUTHOR AUTHOR'S ORGANIZ ATION 09/05/2022 [facility] DATE CREATED AUTHOR AUTHOR'S ORGANIZ ATION 05/22/2023 [facility] EPIC Care Teams (unrecognized sec tion and content) Team Status: Inactive Member Role Status Dates NON STAFF Primary Care Provider Active Dom Paulino Jr, DO Attending Provider Active Team Status: Active Member Role Status Dates NON STAFF Primary Care Provider Active Goals (unrecognized section and content) Goals may be documented in a n alternate section FOR RECORDS PERTAINING TO PATIENTS WHO ARE OR HAVE BEEN ENROLLED IN A CHEMICAL DEPENDENCY/SUBSTANCEABUSE PROGRAM, SOME INFORMATION MAY BE OMITTED. This clinical summary was aggregated from multiple sources. Caution should be exercised in using it in the provision of clinical care. This summary normalizes information from multiple sources, and as a consequence, information in this document may materially change the coding, format and clinical context of patient data. In addition, data may be omitted in some cases. CLINICAL DECISIONS SHOULD BE BASED ON THE PRIMARY CLINICAL RECORDS. [facility]. provides no warranty or guarantee of the accuracy or completeness of information in this document.
[2023-06-28 04:07] LABS: Progesterone 10.7 ng/mL (.)
== END 2023-06-27 12:27 | disposition home or self-care (01) ==
LOC: LAB 12:27
PROVIDERS: Visit Provider Obstetrics & Gynecology
DX: E28.2 Polycystic ovarian syndrome (principal); N97.0 Female infertility associated with anovulation
CPT/HCPCS: 36415; 84144

== ENCOUNTER 2023-07-26 10:36 | Outpatient (OUT) | payer BC, SELFPAY ==
--- OUTSIDE RECORDS SUMMARY | 2023-07-26 10:39 | XMS_ITS | CCD ---
Author Name Unknown Address [address] [place] [address] Organization [facility] Care Team Providers Care Global Product Manager Name Role Phone Unavailable Primary Care Provider UnavailMORALES Renner Referring Unavailable NON STAFF Primary Care Provider UnavailDO Dom Cerda Jr Attending Provider Bhavya Estrada Primary Care Unavailable Klpatria, Bhavya [...] (2 sources) Amoxicillin; Translations: [amoxicillin] Drug Allergy [facility] Repository (1 source) tiZANidine; Translations: [tiZANidine] Drug Allergy [facility] Repository Problems Problem Classification Problem Date [...] 08-23-2022 BASO # 0.1 103/ul Normal 0.0-0.1 [facility] Comment on above: Performed By: #### C BC #### [facility] [address] [address] [address] Car Lozada Basophils/100 WBC (Bld) 0.5 % Normal 0.2-2.0 [facility] Comment on above: Performed By: #### C BC #### [facility] [address] [address] [address] Car Lozada EO # 0.6 103/ul Normal 0.0-0.7 [facility] Comment on above: Performed By: #### C BC #### [facility] [address] [address] [address] Car Lozada Eosinophils/100 WBC (Bld) 5.9 % Normal 0.9-7.0 [facility] Comment on above: Performed By: #### C BC #### [facility] [address] [address] [address] Car Lozada Erythrocyte distribution width (RBC) [Ratio] 12.6 % Normal 11.0-15.0 [facility] Comment on above: Performed By: #### C BC #### [facility] [address] [address] [address] Car Lozada Hematocrit (Bld) [Volume fraction] 42.0 % Normal 36.0-48.0 [facility] Comment on above: Performed By: #### C BC #### [facility] [address] [address] [address] Car Lozada Hemoglobin (Bld) [Mass/Vol] 14.1 g/dL Normal 12.0-16.0 [facility] Comment on above: Performed By: #### C BC #### [facility] [address] [address] [address] Car Lozada IG # 0.04 10e3/ul Critically high 0.00-0.03 [facility] Comment on above: Performed By: #### C BC #### [facility] [address] [address] [address] Car Lozada IG % 0.4 % Normal 0.0-0.5 [facility] Comment on above: Performed By: #### C BC #### [facility] [address] [place] [address] Dr. Car Lozada LYMPH # 3.6 103/ul Normal 1.2-3.8 [facility] Comment on above: Performed By: #### C BC #### [facility] [address] [place] [address] Dr. Car Lozada Lymphocytes/100 WBC (Bld) 34.7 % Normal 20.5-60.0 [facility] Comment on above: Performed By: #### C BC #### [facility] [address] [place] [address] Dr. Car Lozada MANUAL DIFF REQ NO Normal [facility] Comment on above: Performed By: #### C BC #### [facility] [address] [place] [address] Dr. Car Lozada MCH (RBC) [Entitic mass] 31.2 pg Normal 26.7-34.0 [facility] Comment on above: Performed By: #### C BC #### [facility] [address] [place] [address] Dr. Car Lozada MCHC (RBC) [Mass/Vol] 33.6 g/dL Normal 29.9-35.2 [facility] Comment on above: Performed By: #### C BC #### [facility] [address] [place] [address] Dr. Car Lozada MCV (RBC) [Entitic vol] 92.9 fL Normal 81.0-99.0 [facility] Comment on above: Performed By: #### C BC #### [facility] [address] [address] [address] Car Lozada MONO # 0.9 103/ul Critically high 0.3-0.8 [facility] Comment on above: Performed By: #### C BC #### [facility] [address] [address] [address] Car Lozada Monocytes/100 WBC (Bld) 8.3 % Normal 1.7-12.0 [facility] Comment on above: Performed By: #### C BC #### [facility] [address] [place] [address] Dr. Car Lozada NEUT # 5.2 103/ul Normal 1.4-6.5 [facility] Comment on above: Performed By: #### C BC #### [facility] [address] [place] [address] Dr. Car Lozada Neutrophils/100 WBC (Bld) 50.2 % Normal 43.0-75.0 [facility] Comment on above: Performed By: #### C BC #### [facility] [address] [place] [address] Dr. Car Lozada Platelet mean volume (Bld) [Entitic vol] 10.0 fL Normal 9.5-13.5 [facility] Comment on above: Performed By: #### C BC #### [facility] [address] [place] [address] Dr. Car Lozada PLT 251 103/ul Normal 150-450 [facility] Comment on above: Performed By: #### C BC #### [facility] [address] [place] [address] Dr. Car Lozada RBC 4.52 106/ul Normal 4.20-5.40 [facility] Comment on above: Performed By: #### C BC #### [facility] [address] [place] [address] Dr. Car Lozada WBC 10.3 103/ul Normal 4.0-11.0 [facility] Comment on above: Performed By: #### C BC #### [facility] [address] [address] [address] Car Lozada PREG QUANT HCGon 08-23-2022 HCG QUANT <1 Normal [facility] Comment on above: Performed By: #### P REGQNT #### [facility] [address] [address] [address] Car Lozada HCG RANGE SEE BELOW Normal [facility] Comment on above: Result Comment: 5-50 0.2-1 WEEK 50-500 1-2 WEEKS 100-5,000 2-3 WEEKS 500-10,000 3-4 WEEKS 1,000-50,000 4-5 WEEKS 10,000-100,000 5-6 WEEKS 15,000-200,000 6-8 WEEKS 10,000-100,000 2-3 MONTHS Performed By: #### P REGQNT #### [facility] [address] [place] [address] Dr. Car Lozada XR CHEST 2 Von [...] JOSÉ MIGUEL LIMON Date: 2022-08-16 10:17 Normal [facility] PAP ACOG PANEL 2: 21 to 27on 06-25-2022 . . Normal [facility] Comment on above: Performed By: #### [id number] #### [facility] [address] [place] [address] Dr. Car Lozada Age Gdln ACOG Testing 19- Normal [facility] Comment on above: Performed By: #### [id number] #### [facility] [address] [place] [address] Dr. Car Lozada DIAGNOSIS: Comment Abnormal [facility] Comment on above: Result Comment: EPIT HELIAL CELL ABNORMALITY. LOW GRADE SQUAMOUS INTRAEPITHELIAL LESION (LSIL). Performed By: #### 4 [id number] #### [facility] [address] [place] [address] Dr. Car Lozada Electronically signed by: Comment Normal [facility] Comment on above: Result Comment: Phyllis Vital MD, Pathologist Performed By: #### [id number] #### [facility] [address] [place] [address] Dr. Car Lozada Methodology: Comment Normal [facility] Comment on above: Result Comment: This liquid based ThinPrep(R) pap test was screened with the use of an image guided system. Performed By: #### 4 [id number] #### [facility] [address] [place] [address] Dr. Car Lozada Note: Comment Normal [facility] Comment on above: Result Comment: The Pap smear is a screening test designed to aid in the detection of premalignant and malignant conditions of the uterine cervix. It is not a diagnostic procedure and should not be used as the sole means of detecting cervical cancer. Both false-positive and false-negative reports do occur. . Performed By: #### 4 [id number] #### [facility] [address] [place] [address] Dr. Car Lozada Pathologist Provided ICD10 Comment Normal [facility] Comment on above: Result Comment: [id number]. [id number] Performed By: #### [id number] #### [facility] [address] [place] [address] Dr. Car Lozada Performed by: Comment Normal [facility] Comment on above: Result Comment: Sidney Masters, Meat Cutter Apprentice (ASCP) Performed By: #### 4 [id number] #### [facility] [address] [place] [address] Dr. Car Lozada Recommendation: Comment Abnormal [facility] Comment on above: Result Comment: Sugg est follow up as clinically appropriate. Performed By: #### 4 [id number] #### [facility] [address] [place] [address] Dr. Cra Lozada Reflex Criteria: Comment Normal [facility] Comment on above: Result Comment: The HPV DNA reflex criteria were not met with this specimen result therefore, no HPV testing was performed. . Performed By: #### 4 [id number] #### [facility] [address] [address] [address] Car Lozada Specimen adequacy: Comment Normal [facility] Comment on above: Result Comment: Sati sfactory for evaluation. Endocervical and/or squamous metaplastic cells (endocervical component) are present. Performed By: #### 4 [id number] #### [facility] [address] [address] [address] Car Lozada Body fluid albumin measureme nt (mass/volume)Ordered By: Dom Paulino on 12-22-2021 Albumin (Body fld) [Mass/Vol] 3.4 g/dL 3.2-5.5 [facility] Cholesterol [Mass/volume] in Serum or PlasmaOrdered By: Dom Paulino on 12-22-2021 Cholesterol [Mass/Vol] 228 mg/dL 140-200 [facility] Comment on above: Chol less than 200 m g/dl low risk Chol 201-239 mg/dl borderline risk Chol 240 mg/dl and greater high risk Cholesterol in LDL Calc [Mas s/Vol]Ordered By: Dom Paulino on 12-22-2021 Cholesterol in LDL [Mass/Vol] 136 mg/dL 0-100 [facility] Comment on above: LDL ATP III CLASSIFI CATION LDL less than 100 mg/dL Optimal LDL 100-129 mg/dL Near or above optimal LDL 130-159 mg/dL Borderline high LDL 160-189 mg/dL High LDL greater than 189 mg/dL Very high Cholesterol in VLDL Calc [Ma ss/Vol]Ordered By: Dom Paulino on 12-22-2021 Cholesterol in VLDL [Mass/Vol] 19 mg/dL [facility] Comprehensive Metabolic Empo n 12-22-2021 Albumin [Mass/Vol] 3.4 g/dL Normal 3.2-5.5 [facility] Comment on above: Performed By: #### E BS CMP, EBS LIPID #### [facility] [address] Albumin/Globulin [Mass ratio] 1.2 {ratio} Normal [facility] Comment on above: Performed By: #### E BS CMP, EBS LIPID #### [facility] [address] [id number] [place] ALP [Catalytic activity/Vol] 48 U/L Normal 32-92 [facility] Comment on above: Performed By: #### E BS CMP, EBS LIPID #### [facility] [address] [place] [address] [place] ALT [Catalytic activity/Vol] 14 U/L Normal 10-60 [facility] Comment on above: Performed By: #### E BS CMP, EBS LIPID #### [facility] [address] [id number] [place] AST [Catalytic activity/Vol] 15 U/L Normal 10-42 [facility] Comment on above: Performed By: #### E BS CMP, EBS LIPID #### [facility] [address] Bilirubin [Mass/Vol] 0.3 mg/dL Normal 0.3-1.2 [facility] Comment on above: Performed By: #### E BS CMP, EBS LIPID #### [facility] [address] [place] [address] [place] Calcium [Mass/Vol] 9.3 mg/dL Normal 8.2-10.2 [facility] Comment on above: Performed By: #### E BS CMP, EBS LIPID #### [facility] [address] [id number] [place] Chloride [Moles/Vol] 101 mmol/L Normal 95-114 [facility] Comment on above: Performed By: #### E BS CMP, EBS LIPID #### [facility] [address] [id number] [place] CO2 [Moles/Vol] 23.8 mmol/L Normal 22.0-30.0 [facility] Comment on above: Performed By: #### E BS CMP, EBS LIPID #### [facility] [address] [id number] [place] Creatinine [Mass/Vol] 0.79 mg/dL Normal 0.44-1.03 [facility] Comment on above: Performed By: #### E BS CMP, EBS LIPID #### [facility] [address] [place] [address] [place] Estimated GFR ( Aleena > 60 Normal [facility] Comment on above: Result Comment: GFR estimated reference range: According to KDOQI guidelines, <60 ml/min/1.73m2 is sufficient to diagnose a patient with chronic kidney disease. Performed By: #### E BS CMP, EBS LIPID #### [facility] [address] [place] [address] [place] Estimated GFR (Non- Am > 60 Normal [facility] Comment on above: Performed By: #### E BS CMP, EBS LIPID #### [facility] [address] Globulin (S) [Mass/Vol] 2.8 g/dL Normal [facility] Comment on above: Performed By: #### E BS CMP, EBS LIPID #### [address] Glucose [Mass/Vol] 76 mg/dL Normal 70-100 [facility] Comment on above: Performed By: #### E BS CMP, EBS LIPID #### [address] Potassium [Moles/Vol] 3.8 mmol/L Normal 3.5-5.1 [facility] Comment on above: Performed By: #### E BS CMP, EBS LIPID #### [facility] [address] [place] [address] [place] Protein [Mass/Vol] 6.2 g/dL Normal 6.1-7.9 [facility] Comment on above: Performed By: #### E BS CMP, EBS LIPID #### [facility] [address] [place] [address] [place] Sodium [Moles/Vol] 136 mmol/L Normal 136-146 [facility] Comment on above: Performed By: #### E BS CMP, EBS LIPID #### [facility] [address] Urea nitrogen [Mass/Vol] 10 mg/dL Normal 9-23 [facility] Comment on above: Performed By: #### E BS CMP, EBS LIPID #### [facility] [address] [id number] [facility] Creatinine and Glomerular fi ltration rate.predicted panel (S/P/Bld)Ordered By: Dom Paulino on 12-22-2021 Creatinine [Mass/Vol] 0.79 mg/dL 0.44-1.03 [facility] Estimated glomerular filtrat ion rate (GFR) non- AmericanOrdered By: Dom Paulino on 12-22-2021 GFR/1.73 sq M.predicted among non-blacks MDRD (S/P/Bld) [Vol rate/Area] > 60 mL/Min [facility] Globulin Calc (S) [Mass/Vol] Ordered By: Dom Paulino on 12-22-2021 Globulin (S) [Mass/Vol] 2.8 g/dL [facility] - Chemistry and C hemistry - challengeOrdered By: Dom Paulino on 12-22-2021 Glucose [Mass/Vol] 76 mg/dL 70-100 [facility] Lipid Profileon 12-22-2021 Cholesterol [Mass/Vol] 228 mg/dL High 140-200 [facility] Comment on above: Result Comment: Chol less than 200 mg/dl low risk Chol 201-239 mg/dl borderline risk Chol 240 mg/dl and greater high risk Performed By: #### E BS CMP, EBS LIPID #### [facility] [address] [id number] [place] Cholesterol in HDL [Mass/Vol] 73 mg/dL Normal 35-85 [facility] Comment on above: Result Comment: HDL CHOL ATP-III CLASSIFICATION Cardiovascular Risk HDL > or equal to 60 mg/dL LOW HDL < 40 mg/dL HIGH Performed By: #### E BS CMP, EBS LIPID #### [facility] [address] [id number] [facility] Cholesterol.total/Janey sterol in HDL [Mass ratio] 3.1 {ratio} Normal <5.0 [facility] Comment on above: Result Comment: PERF ORMED BY: [facility] [address] [place] [address] PATHOLOGIST [employer]OSS [employer]/TRACK AND FIELD COACH DENYS WOO M.D. Performed By: #### E BS CMP, EBS LIPID #### [facility] [address] LDL Cholesterol,Calculated 136 mg/dL High 0-100 [facility] Comment on above: Result Comment: LDL ATP III CLASSIFICATION LDL less than 100 mg/dL Optimal LDL 100-129 mg/dL Near or above optimal LDL 130-159 mg/dL Borderline high LDL 160-189 mg/dL High LDL greater than 189 mg/dL Very high Performed By: #### E BS CMP, EBS LIPID #### [facility] [address] Triglyceride w/Reflex 95 mg/dL Normal 35-149 [facility] Comment on above: Result Comment: TRIG ATP III CLASSIFICATION TRIG less than 150 mg/dL Normal TRIG 150-199 mg/dL Borderline high TRIG 200-500 mg/dL High TRIG greater than 500 mg/dL Very high Standard traceable to the Center for Disease Conrtrol and Prevention (CDC) test method. Performed By: #### E BS CMP, EBS LIPID #### [facility] [address] VLDL CHOLESTEROL 19 mg/dL Normal [facility] Comment on above: Performed By: #### E BS CMP, EBS LIPID #### [facility] [address] No Panel InformationOrdered By: Dom Paulino on 12-22-2021 Estimated GFR () > 60 mL/Min [facility] Comment on above: GFR estimated refere nce range: According to KDOQI guidelines, <60 ml/min/1.73m2 is sufficient to diagnose a patient with chronic kidney disease. Pharmacy Creatinine Clearance (Chem N/A [facility] Triglycerides Reflex 95 mg/dL 35-149 [facility] Comment on above: TRIG ATP III CLASSIF ICATION TRIG less than 150 mg/dL Normal TRIG 150-199 mg/dL Borderline high TRIG 200-500 mg/dL High TRIG greater than 500 mg/dL Very high Standard traceable to the Center for Disease Conrtrol and Prevention (CDC) test method. Protein [Mass/volume] in Ser um or PlasmaOrdered By: Dom Paulino on 12-22-2021 Protein [Mass/Vol] 6.2 g/dL 6.1-7.9 [facility] Serum or plasma alanine pan otransferase measurement without P-5'-P (enzymatic activiOrdered By: Dom Paulino on 12-22-2021 ALT No additional P-5'-P [Catalytic activity/Vol] 14 U/L 10-60 [facility] Serum or plasma albumin/glob ulin mass ratioOrdered By: Dom Paulino on 12-22-2021 Albumin/Globulin [Mass ratio] 1.2 {ratio} [facility] Serum or plasma alkaline nina sphatase measurement (enzymatic activity/volume)Ordered By: Dom Paulino on 12-22-2021 ALP [Catalytic activity/Vol] 48 U/L 32-92 [facility] Serum or plasma aspartate am inotransferase measurement (enzymatic activity/volume)Ordered By: Dom Paulino on 12-22-2021 AST [Catalytic activity/Vol] 15 U/L 10-42 [facility] Serum or plasma calcium dexter urement (mass/volume)Ordered By: Dom Paulino on 12-22-2021 Calcium [Mass/Vol] 9.3 mg/dL 8.2-10.2 [facility] Serum or plasma chloride glenis surement (moles/volume)Ordered By: Dom Paulino on 12-22-2021 Chloride [Moles/Vol] 101 mmol/L 95-114 [facility] Serum or plasma high density lipoprotein (HDL) cholesterol measurementOrdered By: Dom Paulino on 12-22-2021 Cholesterol in HDL [Mass/Vol] 73 mg/dL 35-85 [facility] Comment on above: HDL CHOL ATP-III CLA SSIFICATION Cardiovascular Risk HDL > or equal to 60 mg/dL LOW HDL < 40 mg/dL HIGH Serum or plasma potassium me asurement (moles/volume)Ordered By: Dom Paulino on 12-22-2021 Potassium [Moles/Vol] 3.8 mmol/L 3.5-5.1 [facility] Serum or plasma sodium measu rement (moles/volume)Ordered By: Dom Paulino on 12-22-2021 Sodium [Moles/Vol] 136 mmol/L 136-146 [facility] Serum or plasma total biliru bin measurement (mass/volume)Ordered By: Dom Paulino on 12-22-2021 Bilirubin [Mass/Vol] 0.3 mg/dL 0.3-1.2 [facility] Serum or plasma total carbon dioxide measurement (moles/volume)Ordered By: Dom Paulino on 12-22-2021 CO2 [Moles/Vol] 23.8 mmol/L 22.0-30.0 [facility] Serum or plasma total choles terol/high density lipoprotein (HDL) cholesterol mass ratOrdered By: Dom Paulino on 12-22-2021 Cholesterol.total/Janey sterol in HDL [Mass ratio] 3.1 {ratio} [facility] Serum or plasma urea nitroge n measurement (mass/volume)Ordered By: Dom Paulino on 12-22-2021 Urea nitrogen [Mass/Vol] 10 mg/dL 9-23 [facility] Outside Recordson 09-13-2021 Outside Records [id number][facility] 08-28-2021 Outside Records [id number] #[facility] Outside Records [id number] #[facility] Consent Formson 07-14-2021 Consent Forms [id number] #1.00[facility] Progress Note - Nurseon Progress Note - Nurse Antigen test ordered, test resulted positive, patient informed of positive result. In house test ordered, patient informed and swabbed, specimen sent to lab. [Electronically Signed on: 07/11/2021 16:04 EST] Kamini Tovar RN [Verified on: 07/11/2021 16:04 EST] Kamini Tovar RN [facility] Progress Note - Nurse Antigen test ordered, test resulted negative, patient informed of negative result. [Electronically Signed on: 07/11/2021 11:45 EST] Kamini Tovar RN [Verified on: 07/11/2021 11:45 EST] Kamini Tovar RN [facility] Measles (Rubeola) Imon 11-28 Measles (Rubeola) Im 3.49 Normal >1.09 [facility] Comment on above: Result Comment: Interpretation: IMMUNE Reference Range: <0.91 Not Immune 0.91-1.09 Equivocal >1.09 Immune Performed By: #### M EI, JUDY, VZI, TSPOT, MEÑO #### [address] [address] Digital Product Specialist: Maury Watts MD Mumps,Immun,Abon 11-28-2020 Mumps,Immun,Ab 1.48 Normal >1.09 [facility] Comment on above: Result Comment: Interpretation: IMMUNE Reference Range: <0.91 Not Immune 0.91-1.09 Equivocal >1.09 Immune Performed By: #### M EI, JUDY, VZI, TSPOT, MEÑO #### [address] [address] Digital Product Specialist: Maury Watts MD T-Spoton 11-28-2020 T-Spot. TB Test Normal [facility] Comment on above: Result Comment: [employer] [place] [address] [place] [address] (NOTE) T-SPOT.TB Test Results --------- T-SPOT TB [...] M EI, JUDY, VZI, TSPOT, MEÑO #### [employer] [address] [place], [place] [id number] Digital Product Specialist: Maury Watts MD VZ Immunityon 11-28-2020 VZ Immunity 2.04 Normal >1.09 [facility] Comment on above: Result Comment: Interpretation: IMMUNE Reference Range: <0.91 Not Immune 0.91-1.09 Equivocal >1.09 Immune Performed By: #### M EI, JUDY, VZI, TSPOT, MEÑO #### [employer] [address] [place], [place] [id number] Digital Product Specialist: Maury Watts MD Rubella Ab, IgGon 11-25-2020 Rubella Ab, IgG 150.4 IU/mL Normal [facility] Comment on above: Result Comment: REFERENCE RANGE: <5.0 NON-REACTIVE (non-immune) 5.0 TO 9.9 EQUIVOCAL >=10.0 REACTIVE (immune) Performed By: #### M EI, JUDY, VZI, TSPOT, EMÑO #### [employer] [address] [place] [address] Digital Product Specialist: Maury Watts MD Rubella antibody, IgGOrdered By: Morales Gardner on 11-25-2020 Rubella virus IgG Ql (S) 150.4 IU/mL [facility] Work Phone: Comment on above: REFERENCE RANGE: <5.0 NON-REACTIVE (non-immune) 5.0 TO 9.9 EQUIVOCAL >=10.0 REACTIVE (immune) [facility] [employer] Phone: Encounters Encounter Date Encounter Type Care Provider Facility Start: 05-21-2023 End: 05-21-2023 ambulatory ANGIE IVVAR Not Available Start: 08-23-2022 End: 08-23-[address] ANGIE VIVAR . Facility: Start: 08-20-2022 Encounter for preprocedural respiratory examination DR ANGIE VIVAR . [facility] Start: 08-16-2022 End: 08-17-[address] ANGIE VIVAR . Facility: Start: 08-16-2022 End: 08-17-2022 Encounter for preprocedural respiratory examination DR ANGIE VIVAR . Facility: Start: 06-13-2022 End: 06-13-[address] ANGIE VIVAR . Facility: Start: 04-26-2022 End: 04-27-2022 ambulatory Bhavya Estrada Facility:[facility] Start: 12-22-2021 End: 12-22-2021 Departed Referred [facility] [address] Start: 07-13-2021 End: 07-13-2021 ambulatory [facility] [facility] Start: 07-12-2021 End: 07-12-2021 ambulatory [facility] Facility:[facility] Start: 11-25-2020 End: 11-26-2020 ambulatory MORALES GARD[facility] Start: 11-25-2020 End: 11-25-2020 Subsequent hospital visit by physician [facility] Laboratory Procedures Date Procedure Procedure Detail Performing Clinician Start: 11-25-2020 Antibody rubella Omkar Gardner MD Work Phone: Plan of Treatment Date Care Activity Detail Author Start: 03-08-2021 Influenza vaccination Flu vacc ine (Season Ended) [facility]: Start: 2005 COVID-19 Vaccine (1) COVID-19 Vaccin e (1) [facility]: End: 11-25-2020 Mumps Antibody, IgG Mumps Antibody, IgG Lab Routine Once for 1 Occurrences starting 11/25/2020 until 11/25/2020 [facility]: Comment on above: Once for 1 Occurrenc es starting 11/25/2020 until 11/25/2020 Mumps Antibody, IgG Mumps Antibo dy, IgG Lab Routine 11/25/2020 3:18 PM EDT [facility]: End: 11-25-2020 Rubeola Antibody, IgG Rubeola Antibody, IgG Lab Routine Once for 1 Occurrences starting 11/25/2020 until 11/25/2020 [facility]: Comment on above: Once for 1 Occurrenc es starting 11/25/2020 until 11/25/2020 Rubeola Antibody, IgG Rubeola An tibody, IgG Lab Routine 11/25/2020 3:18 PM EDT [facility]: End: 11-25-2020 Tb antigen response gamma interferon t-cell susp T-Spot TB Test Lab Routine Once for 1 Occurrences starting 11/25/2020 until 11/25/2020 [facility]: Comment on above: Once for 1 Occurrenc es starting 11/25/2020 until 11/25/2020 Tb antigen response gamma interferon t-cell susp T-Spot TB Test Lab Routine 11/25/2020 3:18 PM EDT [facility]: End: 11-25-2020 Varicella Zoster Antibody, IgG Varicella Zoster Antibody, IgG Lab Routine Once for 1 Occurrences starting 11/25/2020 until 11/25/2020 [facility]: Comment on above: Once for 1 Occurrenc es starting 11/25/2020 until 11/25/2020 Varicella Zoster Antibody, IgG Varicella Zoster Antibody, IgG Lab Routine 11/25/2020 3:18 PM EDT [facility]: Payers Date Payer Category Payer Unknown [id number] 2020 Unknown [id number] 1995 Unknown [id number] 1995 Unknown [id number] 1993 Unknown [id number] [id number] 1993 Unknown [id number] 2.16.84 [id number] 1993 Unknown [id number] 1959 Unknown [id number] Self-pay Self Pay [id number] Social History Date Type Detail Facility Tobacco smoking stat [facility] Unknown if ever smoked [facility]: Start: 1995 Sex Assigned At Not on file [facility] Phone: Start: 1995 Sex Assigned At Female F [facility] Clinical Note 08-23-2022 Note Date & Type Note Facility 08-23-2022 Note OPERATIVE NOTE OPERATION DATE: 08/23/2022 PROCEDURE: LEEP Procedure. PREOPERATIVE DIAGNOSIS: Cervical dysplasia. POSTOPERATIVE DIAGNOSIS: Cervical dysplasia. ANESTHESIA: General. SURGEON: Angie Vivar D.O. LIFT TRUCK OPERATOR: None. BLOOD LOSS: 5 mL. SPECIMEN: Ectocervical [...] to Recovery Room in stable condition. [facility] Medication management note 06-11-2022 Note Date & Type Note Facility 06-11-2022 Note Entered by Diane Wadsworth on June 11, 2022 09:44:53 EST From: Diane Wadsworth To: [id number] Sent: 06/11/2022 09:44:53 EST Subject: Medication Management Submitted: Complete:desogestrel-ethinyl estradiol (Velivet oral tablet) Signed by Diane Wadsworth 06/11/2022 09:44:00 EST Approved desogestrel-ethinyl estradiol (VELIVET 28 DAY TABLET) take 1 tablet by mouth once daily Qty: 84 tab(s) Days Supply: 84 Refills: 0 Substitutions Allowed Route To Pharmacy - [id number] Signed by Diane Wadsworth Patient matched by Diane Wadsworth on 06/11/2022 09:41:06 EST From: [id number] To: Bhavya Estrada MD Sent: June 11, 2022 8:39:02 AM [employer] Subject: Medication Management Due: June 12, 2022 12:05:33 AM [employer] On Hold Pending Signature Drug: desogestrel-ethinyl estradiol (Velivet oral tablet), take 1 tablet by mouth once daily Quantity: 84 tab(s) Days Supply: 84 Refills: 1 Substitutions Allowed Notes from Pharmacy: Dispensed Drug: desogestrel-ethinyl estradiol (Velivet oral tablet), take 1 tablet by mouth once daily Quantity: 84 tab(s) Days Supply: 84 Refills: 0 Substitutions Allowed Notes from Pharmacy: [facility] Evaluation note Note Date & Type Note Facility Evaluation note No assessment information availa [facility] Work Phone: Summary Purpose Family History No [...] section and content) DATE CREATED AUTHOR 12/02/2020 [facility] DATE CREATED AUTHOR AUTHOR'S ORGANIZ ATION 12/23/2021 [facility] DATE CREATED AUTHOR AUTHOR'S ORGANIZ ATION 06/11/2022 [facility] DATE CREATED AUTHOR AUTHOR'S ORGANIZ ATION 09/05/2022 [facility] DATE CREATED AUTHOR AUTHOR'S ORGANIZ ATION 05/22/2023 [facility] EP[employer] Care Teams (unrecognized sec [...] BE BASED ON THE PRIMARY CLINICAL RECORDS. [facility] [employer] [facility]. provides no warranty or guarantee of the accuracy or completeness of information in this document.
[2023-07-27 04:07] LABS: Progesterone 14.5 ng/mL (.)
== END 2023-07-26 10:37 | disposition home or self-care (01) ==
LOC: LAB 10:37
PROVIDERS: Visit Provider Obstetrics & Gynecology
DX: E28.2 Polycystic ovarian syndrome (principal); N97.0 Female infertility associated with anovulation
CPT/HCPCS: 36415; 84144

== ENCOUNTER 2023-09-05 13:34 | Outpatient (OUT) | payer BC, SELFPAY ==
--- NOTE | 2023-09-05 13:37 | US_ITS ---
[address] [address] Patient Name: MARISA ADAN MRN: [id number] date: 1995 Sex: F Assigned Patient Location: [facility] Current Patient Location: [facility] Accession/Order Number: [id number] Exam Date: 09/05/2023 13:37 Report Date: 09/05/2023 14:52 At the request of: ANGIE TERAN Procedure: US OB transvaginal EXAMINATION: US OB transvaginal HISTORY: MISSED MENSES COMPARISON: No relevant comparison available. FINDINGS: Viera intrauterine gestation Gestational sac: 3.68 cm, 8 weeks 6 days CRL: 1.19 cm, 8 weeks 3 days Yolk sac: 3.7 mm Heart rate: 167 bpm Cervix: Closed, 4.1 cm The uterus is normal, anteverted, anteflexed The ovaries are normal Clinical age: 8 weeks 5 days Clinical RUKHSANA: 04/11/2024 Ultrasound age: 8 weeks 3 days Ultrasound RUKHSANA: 04/13/2024 US/US OB transvaginal IMPRESSION: Viable viera intrauterine gestation measuring 8 weeks 3 days Electronically authenticated by: OMID DOSS Date: 09/05/2023 14:52
== END 2023-09-05 13:35 | disposition home or self-care (01) ==
LOC: NOMS 13:35
PROVIDERS: Visit Provider Obstetrics & Gynecology
DX: Z34.91 Encounter for supervision of normal pregnancy, unspecified, first trimester (principal); Z3A.08 8 weeks gestation of pregnancy; N92.6 Irregular menstruation, unspecified; E28.2 Polycystic ovarian syndrome; N97.0 Female infertility associated with anovulation
CPT/HCPCS: 76817

== ENCOUNTER 2023-09-18 09:18 | Outpatient (OUT) | payer BC, SELFPAY ==
--- OUTSIDE RECORDS SUMMARY | 2023-09-18 09:26 | XMS_ITS | CCD ---
Author Name Unknown Address [address] [place] [address] Organization [facility] Care Team Providers Care Music Agent Name Role Phone Unavailable Primary Care Provider UnavailMORALES Renner Referring Unavailable NON STAFF Primary Care Provider UnavailDO Dom Cerda Jr Attending Provider [phone] Bhavya Estrada Primary Care Unavailable Klpatria, Bhavya [...] (2 sources) Amoxicillin; Translations: [amoxicillin] Drug Allergy [facility] Repository (1 source) tiZANidine; Translations: [tiZANidine] Drug Allergy [facility] Repository Problems Problem Classification Problem [...] 08-23-2022 BASO # 0.1 103/ul Normal 0.0-0.1 [facility] Comment on above: Performed By: #### C BC #### [facility] [address] [address] [address] Car Lozada Basophils/100 WBC (Bld) 0.5 % Normal 0.2-2.0 [facility] Comment on above: Performed By: #### C BC #### [facility] [address] [address] [address] Car Lozada EO # 0.6 103/ul Normal 0.0-0.7 [facility] Comment on above: Performed By: #### C BC #### [facility] [address] [address] [address] Car Lozada Eosinophils/100 WBC (Bld) 5.9 % Normal 0.9-7.0 [facility] Comment on above: Performed By: #### C BC #### [facility] [address] [address] [address] Car Lozada Erythrocyte distribution width (RBC) [Ratio] 12.6 % Normal 11.0-15.0 [facility] Comment on above: Performed By: #### C BC #### [facility] [address] [address] [address] Car Lozada Hematocrit (Bld) [Volume fraction] 42.0 % Normal 36.0-48.0 [facility] Comment on above: Performed By: #### C BC #### [facility] [address] [address] [address] Car Lozada Hemoglobin (Bld) [Mass/Vol] 14.1 g/dL Normal 12.0-16.0 [facility] Comment on above: Performed By: #### C BC #### [facility] [address] [address] [address] Car Lozada IG # 0.04 10e3/ul Critically high 0.00-0.03 [facility] Comment on above: Performed By: #### C BC #### [facility] [address] [address] [address] Car Lozada IG % 0.4 % Normal 0.0-0.5 [facility] Comment on above: Performed By: #### C BC #### [facility] [address] [place] [address] Dr. Car Lozada LYMPH # 3.6 103/ul Normal 1.2-3.8 [facility] Comment on above: Performed By: #### C BC #### [facility] [address] [place] [address] Dr. Car Lozada Lymphocytes/100 WBC (Bld) 34.7 % Normal 20.5-60.0 [facility] Comment on above: Performed By: #### C BC #### [facility] [address] [place] [address] Dr. Car Lozada MANUAL DIFF REQ NO Normal [facility] Comment on above: Performed By: #### C BC #### [facility] [address] [place] [address] Dr. Car Lozada MCH (RBC) [Entitic mass] 31.2 pg Normal 26.7-34.0 [facility] Comment on above: Performed By: #### C BC #### [facility] [address] [place] [address] Dr. Car Lozada MCHC (RBC) [Mass/Vol] 33.6 g/dL Normal 29.9-35.2 [facility] Comment on above: Performed By: #### C BC #### [facility] [address] [place] [address] Dr. Car Lozada MCV (RBC) [Entitic vol] 92.9 fL Normal 81.0-99.0 [facility] Comment on above: Performed By: #### C BC #### [facility] [address] [address] [address] Car Lozada MONO # 0.9 103/ul Critically high 0.3-0.8 [facility] Comment on above: Performed By: #### C BC #### [facility] [address] [address] [address] Car Lozada Monocytes/100 WBC (Bld) 8.3 % Normal 1.7-12.0 [facility] Comment on above: Performed By: #### C BC #### [facility] [address] [place] [address] Dr. Car Lozada NEUT # 5.2 103/ul Normal 1.4-6.5 [facility] Comment on above: Performed By: #### C BC #### [facility] [address] [place] [address] Dr. Car Lozada Neutrophils/100 WBC (Bld) 50.2 % Normal 43.0-75.0 [facility] Comment on above: Performed By: #### C BC #### [facility] [address] [place] [address] Dr. Car Lozada Platelet mean volume (Bld) [Entitic vol] 10.0 fL Normal 9.5-13.5 [facility] Comment on above: Performed By: #### C BC #### [facility] [address] [place] [address] Dr. Car Lozada PLT 251 103/ul Normal 150-450 [facility] Comment on above: Performed By: #### C BC #### [facility] [address] [place] [address] Dr. Car Lozada RBC 4.52 106/ul Normal 4.20-5.40 [facility] Comment on above: Performed By: #### C BC #### [facility] [address] [place] [address] Dr. Car Lozada WBC 10.3 103/ul Normal 4.0-11.0 [facility] Comment on above: Performed By: #### C BC #### [facility] [address] [address] [address] Car Lozada PREG QUANT HCGon 08-23-2022 HCG QUANT <1 Normal [facility] Comment on above: Performed By: #### P REGQNT #### [facility] [address] [address] [address] Car Lozada HCG RANGE SEE BELOW Normal [facility] Comment on above: Result Comment: 5-50 0.2-1 WEEK 50-500 1-2 WEEKS 100-5,000 2-3 WEEKS 500-10,000 3-4 WEEKS 1,000-50,000 4-5 WEEKS 10,000-100,000 5-6 WEEKS 15,000-200,000 6-8 WEEKS 10,000-100,000 2-3 MONTHS Performed By: #### P REGQNT #### [facility] [address] [place] [address] Dr. Car Lozada XR CHEST 2 Von [...] JOSÉ MIGUEL LIMON Date: 2022-08-16 10:17 Normal [facility] PAP ACOG PANEL 2: 19 to 27on 06-25-2022 . . Normal [facility] Comment on above: Performed By: #### [id number] #### [facility] [address] [place] [address] Dr. Car Lozada Age Gdln ACOG Testing 19- Normal [facility] Comment on above: Performed By: #### [id number] #### [facility] [address] [place] [address] Dr. Car Lozada DIAGNOSIS: Comment Abnormal [facility] Comment on above: Result Comment: EPIT HELIAL CELL ABNORMALITY. LOW GRADE SQUAMOUS INTRAEPITHELIAL LESION (LSIL). Performed By: #### [id number] #### [facility] [address] [place] [address] Dr. Car Lozada Electronically signed by: Comment Normal [facility] Comment on above: Result Comment: Phyllis Vital MD, Pathologist Performed By: #### [id number] #### [facility] [address] [place] [address] Dr. Car Lozada Methodology: Comment Normal [facility] Comment on above: Result Comment: This liquid based ThinPrep(R) pap test was screened with the use of an image guided system. Performed By: #### [id number] #### [facility] [address] [place] [address] Dr. Car Lozada Note: Comment Normal [facility] Comment on above: Result Comment: The Pap smear is a screening test designed to aid in the detection of premalignant and malignant conditions of the uterine cervix. It is not a diagnostic procedure and should not be used as the sole means of detecting cervical cancer. Both false-positive and false-negative reports do occur. . Performed By: #### [id number] #### [facility] [address] [place] [address] Dr. Car Lozada Pathologist Provided ICD10 Comment Normal [facility] Comment on above: Result Comment: [id number]. [id number] Performed By: #### [id number] #### [facility] [address] [place] [address] Dr. Car Lozada Performed by: Comment Normal [facility] Comment on above: Result Comment: Sidney Masters, Folder Machine Adjuster (ASCP) Performed By: #### [id number] #### [facility] [address] [place] [address] Dr. Car Lozada Recommendation: Comment Abnormal [facility] Comment on above: Result Comment: Sugg est follow up as clinically appropriate. Performed By: #### [id number] #### [facility] [address] [place] [address] Dr. Car Lozada Reflex Criteria: Comment Normal [facility] Comment on above: Result Comment: The HPV DNA reflex criteria were not met with this specimen result therefore, no HPV testing was performed. . Performed By: #### 4 [id number] #### [facility] [address] [address] [address] Car Lozada Specimen adequacy: Comment Normal [facility] Comment on above: Result Comment: Sati sfactory for evaluation. Endocervical and/or squamous metaplastic cells (endocervical component) are present. Performed By: #### 4 [id number] #### [facility] [address] [address] [address] Car Lozada Body fluid albumin measureme nt (mass/volume)Ordered By: Dom Paulino on 12-22-2021 Albumin (Body fld) [Mass/Vol] 3.4 g/dL 3.2-5.5 [facility] Cholesterol [Mass/volume] in Serum or PlasmaOrdered By: Dom Paulino on 12-22-2021 Cholesterol [Mass/Vol] 228 mg/dL 140-200 [facility] Comment on above: Chol less than 200 m g/dl low risk Chol 201-239 mg/dl borderline risk Chol 240 mg/dl and greater high risk Cholesterol in LDL Calc [Mas s/Vol]Ordered By: Dom Paulino on 12-22-2021 Cholesterol in LDL [Mass/Vol] 136 mg/dL 0-100 [facility] Comment on above: LDL ATP III CLASSIFI CATION LDL less than 100 mg/dL Optimal LDL 100-129 mg/dL Near or above optimal LDL 130-159 mg/dL Borderline high LDL 160-189 mg/dL High LDL greater than 189 mg/dL Very high Cholesterol in VLDL Calc [Ma ss/Vol]Ordered By: Dom Paulino on 12-22-2021 Cholesterol in VLDL [Mass/Vol] 19 mg/dL [facility] Comprehensive Metabolic Empo n 12-22-2021 Albumin [Mass/Vol] 3.4 g/dL Normal 3.2-5.5 [facility] Comment on above: Performed By: #### E BS CMP, EBS LIPID #### [facility] [address] Albumin/Globulin [Mass ratio] 1.2 {ratio} Normal [facility] Comment on above: Performed By: #### E BS CMP, EBS LIPID #### [facility] [address] [id number] [place] ALP [Catalytic activity/Vol] 48 U/L Normal 32-92 [facility] Comment on above: Performed By: #### E BS CMP, EBS LIPID #### [facility] [address] [place] [address] [place] ALT [Catalytic activity/Vol] 14 U/L Normal 10-60 [facility] Comment on above: Performed By: #### E BS CMP, EBS LIPID #### [facility] [address] [id number] [place] AST [Catalytic activity/Vol] 15 U/L Normal 10-42 [facility] Comment on above: Performed By: #### E BS CMP, EBS LIPID #### [facility] [address] Bilirubin [Mass/Vol] 0.3 mg/dL Normal 0.3-1.2 [facility] Comment on above: Performed By: #### E BS CMP, EBS LIPID #### [facility] [address] [place] [address] [place] Calcium [Mass/Vol] 9.3 mg/dL Normal 8.2-10.2 [facility] Comment on above: Performed By: #### E BS CMP, EBS LIPID #### [facility] [address] [id number] [place] Chloride [Moles/Vol] 101 mmol/L Normal 95-114 [facility] Comment on above: Performed By: #### E BS CMP, EBS LIPID #### [facility] [address] [id number] [place] CO2 [Moles/Vol] 23.8 mmol/L Normal 22.0-30.0 [facility] Comment on above: Performed By: #### E BS CMP, EBS LIPID #### [facility] [address] [id number] [place] Creatinine [Mass/Vol] 0.79 mg/dL Normal 0.44-1.03 [facility] Comment on above: Performed By: #### E BS CMP, EBS LIPID #### [facility] [address] [place] [address] [place] Estimated GFR ( Aleena > 60 Normal [facility] Comment on above: Result Comment: GFR estimated reference range: According to KDOQI guidelines, <60 ml/min/1.73m2 is sufficient to diagnose a patient with chronic kidney disease. Performed By: #### E BS CMP, EBS LIPID #### [facility] [address] [place] [address] [place] Estimated GFR (Non- Am > 60 Normal [facility] Comment on above: Performed By: #### E BS CMP, EBS LIPID #### [facility] [address] Globulin (S) [Mass/Vol] 2.8 g/dL Normal [facility] Comment on above: Performed By: #### E BS CMP, EBS LIPID #### [address] Glucose [Mass/Vol] 76 mg/dL Normal 70-100 [facility] Comment on above: Performed By: #### E BS CMP, EBS LIPID #### [address] Potassium [Moles/Vol] 3.8 mmol/L Normal 3.5-5.1 [facility] Comment on above: Performed By: #### E BS CMP, EBS LIPID #### [facility] [address] [place] [address] [place] Protein [Mass/Vol] 6.2 g/dL Normal 6.1-7.9 [facility] Comment on above: Performed By: #### E BS CMP, EBS LIPID #### [facility] [address] [place] [address] [place] Sodium [Moles/Vol] 136 mmol/L Normal 136-146 [facility] Comment on above: Performed By: #### E BS CMP, EBS LIPID #### [facility] [address] Urea nitrogen [Mass/Vol] 10 mg/dL Normal 9-23 [facility] Comment on above: Performed By: #### E BS CMP, EBS LIPID #### [facility] [address] [id number] [facility] Creatinine and Glomerular fi ltration rate.predicted panel (S/P/Bld)Ordered By: Dom Paulino on 12-22-2021 Creatinine [Mass/Vol] 0.79 mg/dL 0.44-1.03 [facility] Estimated glomerular filtrat ion rate (GFR) non- AmericanOrdered By: Dom Paulino on 12-22-2021 GFR/1.73 sq M.predicted among non-blacks MDRD (S/P/Bld) [Vol rate/Area] > 60 mL/Min [facility] Globulin Calc (S) [Mass/Vol] Ordered By: Dom Paulino on 12-22-2021 Globulin (S) [Mass/Vol] 2.8 g/dL [facility] - Chemistry and C hemistry - challengeOrdered By: Dom Paulino on 12-22-2021 Glucose [Mass/Vol] 76 mg/dL 70-100 [facility] Lipid Profileon 12-22-2021 Cholesterol [Mass/Vol] 228 mg/dL High 140-200 [facility] Comment on above: Result Comment: Chol less than 200 mg/dl low risk Chol 201-239 mg/dl borderline risk Chol 240 mg/dl and greater high risk Performed By: #### E BS CMP, EBS LIPID #### [facility] [address] [id number] [place] Cholesterol in HDL [Mass/Vol] 73 mg/dL Normal 35-85 [facility] Comment on above: Result Comment: HDL CHOL ATP-III CLASSIFICATION Cardiovascular Risk HDL > or equal to 60 mg/dL LOW HDL < 40 mg/dL HIGH Performed By: #### E BS CMP, EBS LIPID #### [facility] [address] [id number] [facility] Cholesterol.total/Janey sterol in HDL [Mass ratio] 3.1 {ratio} Normal <5.0 [facility] Comment on above: Result Comment: PERF ORMED BY: [facility] [address] [place] [address] PATHOLOGIST TACKING STITCH REMOVER DENYS WOO M.D. Performed By: #### E BS CMP, EBS LIPID #### [facility] [address] LDL Cholesterol,Calculated 136 mg/dL High 0-100 [facility] Comment on above: Result Comment: LDL ATP III CLASSIFICATION LDL less than 100 mg/dL Optimal LDL 100-129 mg/dL Near or above optimal LDL 130-159 mg/dL Borderline high LDL 160-189 mg/dL High LDL greater than 189 mg/dL Very high Performed By: #### E BS CMP, EBS LIPID #### [facility] [address] Triglyceride w/Reflex 95 mg/dL Normal 35-149 [facility] Comment on above: Result Comment: TRIG ATP III CLASSIFICATION TRIG less than 150 mg/dL Normal TRIG 150-199 mg/dL Borderline high TRIG 200-500 mg/dL High TRIG greater than 500 mg/dL Very high Standard traceable to the Center for Disease Conrtrol and Prevention (CDC) test method. Performed By: #### E BS CMP, EBS LIPID #### [facility] [address] VLDL CHOLESTEROL 19 mg/dL Normal [facility] Comment on above: Performed By: #### E BS CMP, EBS LIPID #### [facility] [address] No Panel InformationOrdered By: Dom Paulino on 12-22-2021 Estimated GFR () > 60 mL/Min [facility] Comment on above: GFR estimated refere nce range: According to KDOQI guidelines, <60 ml/min/1.73m2 is sufficient to diagnose a patient with chronic kidney disease. Pharmacy Creatinine Clearance (Chem N/A [facility] Triglycerides Reflex 95 mg/dL 35-149 [facility] Comment on above: TRIG ATP III CLASSIF ICATION TRIG less than 150 mg/dL Normal TRIG 150-199 mg/dL Borderline high TRIG 200-500 mg/dL High TRIG greater than 500 mg/dL Very high Standard traceable to the Center for Disease Conrtrol and Prevention (CDC) test method. Protein [Mass/volume] in Ser um or PlasmaOrdered By: Dom Paulino on 12-22-2021 Protein [Mass/Vol] 6.2 g/dL 6.1-7.9 [facility] Serum or plasma alanine pan otransferase measurement without P-5'-P (enzymatic activiOrdered By: Dom Paulino on 12-22-2021 ALT No additional P-5'-P [Catalytic activity/Vol] 14 U/L 10-60 [facility] Serum or plasma albumin/glob ulin mass ratioOrdered By: Dom Paulino on 12-22-2021 Albumin/Globulin [Mass ratio] 1.2 {ratio} [facility] Serum or plasma alkaline nina sphatase measurement (enzymatic activity/volume)Ordered By: Dom Paulino on 12-22-2021 ALP [Catalytic activity/Vol] 48 U/L 32-92 [facility] Serum or plasma aspartate am inotransferase measurement (enzymatic activity/volume)Ordered By: Dom Paulino on 12-22-2021 AST [Catalytic activity/Vol] 15 U/L 10-42 [facility] Serum or plasma calcium dexter urement (mass/volume)Ordered By: Dom Paulino on 12-22-2021 Calcium [Mass/Vol] 9.3 mg/dL 8.2-10.2 [facility] Serum or plasma chloride glenis surement (moles/volume)Ordered By: Dom Paulino on 12-22-2021 Chloride [Moles/Vol] 101 mmol/L 95-114 [facility] Serum or plasma high density lipoprotein (HDL) cholesterol measurementOrdered By: Dom Paulino on 12-22-2021 Cholesterol in HDL [Mass/Vol] 73 mg/dL 35-85 [facility] Comment on above: HDL CHOL ATP-III CLA SSIFICATION Cardiovascular Risk HDL > or equal to 60 mg/dL LOW HDL < 40 mg/dL HIGH Serum or plasma potassium me asurement (moles/volume)Ordered By: Dom Paulino on 12-22-2021 Potassium [Moles/Vol] 3.8 mmol/L 3.5-5.1 [facility] Serum or plasma sodium measu rement (moles/volume)Ordered By: Dom Paulino on 12-22-2021 Sodium [Moles/Vol] 136 mmol/L 136-146 [facility] Serum or plasma total biliru bin measurement (mass/volume)Ordered By: Dom Paulino on 12-22-2021 Bilirubin [Mass/Vol] 0.3 mg/dL 0.3-1.2 [facility] Serum or plasma total carbon dioxide measurement (moles/volume)Ordered By: Dom Paulino on 12-22-2021 CO2 [Moles/Vol] 23.8 mmol/L 22.0-30.0 [facility] Serum or plasma total choles terol/high density lipoprotein (HDL) cholesterol mass ratOrdered By: Dom Paulino on 12-22-2021 Cholesterol.total/Janey sterol in HDL [Mass ratio] 3.1 {ratio} [facility] Serum or plasma urea nitroge n measurement (mass/volume)Ordered By: Dom Paulino on 12-22-2021 Urea nitrogen [Mass/Vol] 10 mg/dL 9-23 [facility] Outside Recordson 09-13-2021 Outside Records [id number][facility]-28-2021 Outside Records [id number] #[facility] [id number] [facility] Consent Formson 07-14-2021 Consent Forms [id number] #1.00[facility] Progress Note - Nurseon Progress Note - Nurse Antigen test ordered, test resulted positive, patient informed of positive result. In house test ordered, patient informed and swabbed, specimen sent to lab. [Electronically Signed on: 07/11/2021 16:04 EST] Kamini Tovar RN [Verified on: 07/11/2021 16:04 EST] Kamini Tovar RN [facility] Progress Note - Nurse Antigen test ordered, test resulted negative, patient informed of negative result. [Electronically Signed on: 07/11/2021 11:45 EST] Kamini Tovar RN [Verified on: 07/11/2021 11:45 EST] Kamini Tovar RN [facility] Measles (Rubeola) Imon 11-28 Measles (Rubeola) Im 3.49 Normal >1.09 [facility] Comment on above: Result Comment: Interpretation: IMMUNE Reference Range: <0.91 Not Immune 0.91-1.09 Equivocal >1.09 Immune Performed By: #### M EI, JUDY, VZI, TSPOT, MEÑO #### [address] [address] Overhead Line Worker: Maury Watts MD Mumps,Immun,Abon 11-28-2020 Mumps,Immun,Ab 1.48 Normal >1.09 [facility] Comment on above: Result Comment: Interpretation: IMMUNE Reference Range: <0.91 Not Immune 0.91-1.09 Equivocal >1.09 Immune Performed By: #### M EI, JUDY, VZI, TSPOT, MEÑO #### [address] [address] Overhead Line Worker: Maury Watts MD T-Spoton 11-28-2020 T-Spot. TB Test Normal [facility] Comment on above: Result Comment: [employer]uling [facility] [address] [place] [address] (NOTE) T-SPOT.TB Test Results --------- T-SPOT TB [...] By: #### M EI, JUDY, VZI, TSPOT, MEOÑ #### [employer] [address] [place], [place] [id number] Overhead Line Worker: Maury Watts MD VZ Immunityon 11-28-2020 VZ Immunity 2.04 Normal >1.09 [facility] Comment on above: Result Comment: Interpretation: IMMUNE Reference Range: <0.91 Not Immune 0.91-1.09 Equivocal >1.09 Immune Performed By: #### M EI, JUDY, VZI, TSPOT, MEÑO #### [employer] [address] [place], [place] [id number] Overhead Line Worker: Maury Watts MD Rubella Ab, IgGon 11-25-2020 Rubella Ab, IgG 150.4 IU/mL Normal [facility] Comment on above: Result Comment: REFERENCE RANGE: <5.0 NON-REACTIVE (non-immune) 5.0 TO 9.9 EQUIVOCAL >=10.0 REACTIVE (immune) Performed By: #### M EI, JUDY, VZI, TSPOT, MEÑO #### [employer] [address] [place] [address] Overhead Line Worker: Maury Watts MD Rubella antibody, IgGOrdered By: Morales Gardner on 11-25-2020 Rubella virus IgG Ql (S) 150.4 IU/mL [employer] Phone: Comment on above: REFERENCE RANGE: <5.0 NON-REACTIVE (non-immune) 5.0 TO 9.9 EQUIVOCAL >=10.0 REACTIVE (immune) [employer] Phone: Encounters Encounter Date Encounter Type Care Provider Facility Start: 09-05-2023 End: 09-05-2023 ambulatory ANGIE VIVAR Not Available Start: 05-21-2023 End: 05-21-2023 ambulatory ANGIE VIVAR Not Available Start: 08-23-2022 End: 08-23-[address] ANGIE VIVAR . Facility: Start: 08-20-2022 Encounter for preprocedural respiratory examination DR ANGIE VIVAR . [facility] Start: 08-16-2022 End: 08-17-[address] ANGIE VIVAR . Facility: Start: 08-16-2022 End: 08-17-2022 Encounter for preprocedural respiratory examination DR ANGIE VIVAR . Facility: Start: 06-13-2022 End: 06-13-[address] ANGIE VIVAR . Facility: Start: 04-26-2022 End: 04-27-2022 ambulatory Bhavya Estrada Facility:[facility] Start: 12-22-2021 End: 12-22-2021 Departed Referred [facility] [address] Start: 07-13-2021 End: 07-13-2021 ambulatory [facility] Facility:[facility] Start: 07-12-2021 End: 07-12-2021 ambulatory [facility] Facility:[facility] Start: 11-25-2020 End: 11-26-2020 ambulatory MORALES GARDNER [facility] Start: 11-25-2020 End: 11-25-2020 Subsequent hospital visit by physician [facility] Procedures Date Procedure Procedure Detail Performing Clinician Start: 11-25-2020 Antibody rubella Omkar Gardner MD Work Phone: Plan of Treatment Date Care Activity Detail Author Start: 03-08-2021 Influenza vaccination Flu vacc ine (Season Ended) [employer] Phone: Start: 2005 COVID-19 Vaccine (1) COVID-19 Vaccin e (1) [employer] Phone: End: 11-25-2020 Mumps Antibody, IgG Mumps Antibody, IgG Lab Routine Once for 1 Occurrences starting 11/25/2020 until 11/25/2020 [employer] Phone: Comment on above: Once for 1 Occurrenc es starting 11/25/2020 until 11/25/2020 Mumps Antibody, IgG Mumps Antibo dy, IgG Lab Routine 11/25/2020 3:18 PM EDT [employer] Phone: End: 11-25-2020 Rubeola Antibody, IgG Rubeola Antibody, IgG Lab Routine Once for 1 Occurrences starting 11/25/2020 until 11/25/2020 [employer] Phone: Comment on above: Once for 1 Occurrenc es starting 11/25/2020 until 11/25/2020 Rubeola Antibody, IgG Rubeola An tibody, IgG Lab Routine 11/25/2020 3:18 PM EDT [facility] Phone: End: 11-25-2020 Tb antigen response gamma interferon t-cell susp T-Spot TB Test Lab Routine Once for 1 Occurrences starting 11/25/2020 until 11/25/2020 [employer] Phone: Comment on above: Once for 1 Occurrenc es starting 11/25/2020 until 11/25/2020 Tb antigen response gamma interferon t-cell susp T-Spot TB Test Lab Routine 11/25/2020 3:18 PM EDT [facility] Phone: End: 11-25-2020 Varicella Zoster Antibody, IgG Varicella Zoster Antibody, IgG Lab Routine Once for 1 Occurrences starting 11/25/2020 until 11/25/2020 [facility] Phone: Comment on above: Once for 1 Occurrenc es starting 11/25/2020 until 11/25/2020 Varicella Zoster Antibody, IgG Varicella Zoster Antibody, IgG Lab Routine 11/25/2020 3:18 PM EDT [facility] Phone: Payers Date Payer Category Payer Unknown [id number] 2020 Unknown [id number] 1995 Unknown [id number] 2.16.84 [id number] 1995 Unknown [id number] 2.16.84 [id number] 1993 Unknown [id number] 2.16.84 [id number] 1993 Unknown [id number] 2.16.84 [id number] 1993 Unknown [id number] 2.16.84 [id number] 1993 Unknown [id number] 1959 Unknown [id number] Self-pay Self Pay [id number] Social History Date Type Detail Facility Tobacco smoking stat [facility] Unknown if ever smoked [facility] Phone: Start: 1995 Sex Assigned At Not on file [facility] Phone: Start: 1995 Sex Assigned At Female [facility] Clinical Note 08-23-2022 Note Date & Type Note Facility 08-23-2022 Note OPERATIVE NOTE OPERATION DATE: 08/23/2022 PROCEDURE: LEEP Procedure. PREOPERATIVE DIAGNOSIS: Cervical dysplasia. POSTOPERATIVE DIAGNOSIS: Cervical dysplasia. ANESTHESIA: General. SURGEON: Angie Vivar D.O. COTTON PICKER: None. BLOOD LOSS: 5 mL. SPECIMEN: Ectocervical [...] to Recovery Room in stable condition. [facility] Medication management note 06-11-2022 Note Date & Type Note Facility 06-11-2022 Note Entered by Diane Wadsworth on June 11, 2022 09:44:53 EST From: Diane Wadsworth To: [facility] #[id number] Sent: 06/11/2022 09:44:53 EST Subject: Medication Management Submitted: Complete:desogestrel-ethinyl estradiol (Velivet oral tablet) Signed by Diane Wadsworth 06/11/2022 09:44:00 EST Approved desogestrel-ethinyl estradiol (VELIVET 28 DAY TABLET) take 1 tablet by mouth once daily Qty: 84 tab(s) Days Supply: 84 Refills: 0 Substitutions Allowed Route To Pharmacy - [facility] #[id number] Signed by Diane Wadsworth Patient matched by Diane Wadsworth on 06/11/2022 09:41:06 EST From: [facility] #[id number] To: Bhavya Estrada MD Sent: June 11, 2022 8:39:02 AM CONSTRUCTION COST ESTIMATOR Subject: Medication Management Due: June 12, 2022 12:05:33 AM CONSTRUCTION COST ESTIMATOR On Hold Pending Signature Drug: desogestrel-ethinyl estradiol (Velivet oral tablet), take 1 tablet by mouth once daily Quantity: 84 tab(s) Days Supply: 84 Refills: 1 Substitutions Allowed Notes from Pharmacy: Dispensed Drug: desogestrel-ethinyl estradiol (Velivet oral tablet), take 1 tablet by mouth once daily Quantity: 84 tab(s) Days Supply: 84 Refills: 0 Substitutions Allowed Notes from Pharmacy: [facility] Evaluation note Note Date & Type Note Facility Evaluation note No assessment information availa [facility] Work Phone: Summary Purpose Family History [...] section and content) DATE CREATED AUTHOR 12/02/2020 [facility] DATE CREATED AUTHOR AUTHOR'S ORGANIZ ATION 12/23/2021 [facility] DATE CREATED AUTHOR AUTHOR'S ORGANIZ ATION 06/11/2022 [facility] DATE CREATED AUTHOR AUTHOR'S ORGANIZ ATION 09/05/2022 [facility] DATE CREATED AUTHOR AUTHOR'S ORGANIZ ATION 09/08/2023 [facility] Care Teams (unrecognized sec tion and content) [...] BE BASED ON THE PRIMARY CLINICAL RECORDS. [facility]. provides no warranty or guarantee of the accuracy or completeness of information in this document.
[2023-09-18 10:09] LABS: Basophils Absolute Auto 0.1 10^3/uL (0.0-0.1); Basophils Percent Auto 0.7 % (0.2-2.0); Eosinophils Absolute Auto 0.5 10^3/uL (0.0-0.7); Eosinophils Percent Auto 4.7 % (0.9-7.0); Hematocrit 39.2 % (36.0-48.0); Hemoglobin 13.4 g/dL (12.0-16.0); Immature Granulocytes Abs Auto 0.07 10^3/uL (0.00-0.03); Immature Granulocytes Pct Auto 0.7 % (0.0-0.5); Lymphocytes Absolute Auto 3.1 10^3/uL (1.2-3.8); Lymphocytes Percent Auto 31.7 % (20.5-60.0); Mean Corpuscular HGB Conc 34.2 g/dL (29.9-35.2); Mean Corpuscular Volume 93.6 fL (81.0-99.0); Mean Platelet Volume 10.6 fL (9.5-13.5); Monocytes Absolute Auto 0.8 10^3/uL (0.3-0.8); Monocytes Percent Auto 8.2 % (1.7-12.0); Neutrophils Absolute Auto 5.3 10^3/uL (1.4-6.5); Platelet Count 237 10^3/uL (150-450); Red Blood Count 4.19 10^6/uL (4.20-5.40); Red Cell Distribution Width 13.3 % (11.0-15.0); White Blood Count 9.9 10^3/uL (4.0-11.0)
[2023-09-18 10:28] LABS: Estimated Average Glucose 100 mg/dL; Glycohemoglobin A1C 5.1 % (4.5-6.2)
[2023-09-18 10:29] LABS: BOX Test Sent Out Y
[2023-09-19 06:10] LABS: HBsAg Screen Negative (Negative); HCV Ab Non Reactive (Non Reactive); HIV Ab/p24 Ag Screen Non Reactive (Non Reactive)
[2023-09-19 12:11] LABS: Rapid Plasma Reagin, Quant Non Reactive titer (NonRea<1:1)
== END 2023-09-18 09:19 | disposition home or self-care (01) ==
LOC: LAB 09:21
PROVIDERS: Visit Provider Obstetrics & Gynecology
DX: N92.6 Irregular menstruation, unspecified (principal); Z36.0 Encounter for antenatal screening for chromosomal anomalies
CPT/HCPCS: 36415; 83036; 85025; 86592; 86762; 86803; 86850; 86900; 86901; 87086; 87340; 87389

== ENCOUNTER 2023-11-07 11:26 | Outpatient (OUT) | payer BC, SELFPAY ==
[2023-11-09 02:08] LABS: AFP Value 42.1 ng/mL (.); Gest. Age on Collection Date 17.7 weeks (.); Insulin Dep Diabetes No (.); Maternal Age At EDD 30.9 yr (.); OSBR Risk 1 IN 6916 (.); Results Report (.)
== END 2023-11-07 11:27 | disposition home or self-care (01) ==
LOC: LAB 11:27
PROVIDERS: Visit Provider Obstetrics & Gynecology
DX: Z36.1 Encounter for antenatal screening for raised alphafetoprotein level (principal)
CPT/HCPCS: 36415; 82105

== ENCOUNTER 2023-12-03 10:36 | Outpatient (OUT) | payer BC, SELFPAY ==
--- NOTE | 2023-12-03 10:39 | US_ITS ---
[address] [address] Patient Name: MARISA ADAN MRN: [id number] date: 1995 Sex: F Assigned Patient Location: [facility] Current Patient Location: [facility] Accession/Order Number: [id number] Exam Date: 12/03/2023 10:39 Report Date: 12/03/2023 11:58 At the request of: ANGIE TERAN Procedure: US OB anatomy EXAMINATION: US OB anatomy, US OB cervical length HISTORY: ANATOMY COMPARISON: Ultrasound OB transvaginal 09/05/2023 TECHNIQUE: Transabdominal sonographic examination was performed for obstetrical and evaluation. FINDINGS: Number: 1 Heart Rate: Not recorded. Active heartbeat can be seen on the cine sequence. Amniotic Fluid Volume: Subjectively normal Placental Location: POSTERIOR with lower margin 2.3 cm from os. Cervix Length: 4.1 cm, closed. ANATOMY: Normal Structures -cerebellum, choroid plexus, cisterna magna, lateral cerebral ventricles, orbits, midline falx, hard palate, four-chamber heart, RVOT, LVOT, stomach, kidneys, bladder, umbilical cord insertion into abdomen, three-vessel cord, cervical spine, thoracic spine, lumbar spine, sacral spine, right upper extremity, left upper extremity, right lower extremity, left lower extremity. SUBOPTIMALLY SEEN: None ABNORMALITIES: None BIOMETRY: BPD: 5.1 cm 21 weeks 3 days HC: 18.9 cm 21 weeks 1 days AC: 16.1 cm 21 weeks 1 days FL: 3.6 cm 21 weeks 3 days EFW:412.4 grams; ; 37% FL/AC: 22.5 FL/BPD: 71.1 HC/AC: 1.2 GESTATIONAL AGE: Age by EDC: 21 weeks 3 days RUKHSANA by EDC: 04/11/2024 Age by current US: 21 weeks 2 days RUKHSANA by current US: 04/12/2024 US/US OB anatomy IMPRESSION: 1. Single live intrauterine with growth detailed above. Electronically authenticated by: JOSÉ MIGUEL LIMON Date: 12/03/2023 11:58
--- NOTE | 2023-12-03 10:41 | US_ITS ---
[address] [address] Patient Name: MARISA ADAN MRN: [id number] date: 1995 Sex: F Assigned Patient Location: [facility] Current Patient Location: [facility] Accession/Order Number: [id number] Exam Date: 12/03/2023 10:41 Report Date: 12/03/2023 11:58 At the request of: ANGIE TERAN Procedure: US OB cervical length EXAMINATION: US OB anatomy, US OB cervical length HISTORY: ANATOMY COMPARISON: Ultrasound OB transvaginal 09/05/2023 TECHNIQUE: Transabdominal sonographic examination was performed for obstetrical and evaluation. FINDINGS: Number: 1 Heart Rate: Not recorded. Active heartbeat can be seen on the cine sequence. Amniotic Fluid Volume: Subjectively normal Placental Location: POSTERIOR with lower margin 2.3 cm from os. Cervix Length: 4.1 cm, closed. ANATOMY: Normal Structures -cerebellum, choroid plexus, cisterna magna, lateral cerebral ventricles, orbits, midline falx, hard palate, four-chamber heart, RVOT, LVOT, stomach, kidneys, bladder, umbilical cord insertion into abdomen, three-vessel cord, cervical spine, thoracic spine, lumbar spine, sacral spine, right upper extremity, left upper extremity, right lower extremity, left lower extremity. SUBOPTIMALLY SEEN: None ABNORMALITIES: None BIOMETRY: BPD: 5.1 cm 21 weeks 3 days HC: 18.9 cm 21 weeks 1 days AC: 16.1 cm 21 weeks 1 days FL: 3.6 cm 21 weeks 3 days EFW:412.4 grams; ; 37% FL/AC: 22.5 FL/BPD: 71.1 HC/AC: 1.2 GESTATIONAL AGE: Age by EDC: 21 weeks 3 days RUKHSANA by EDC: 04/11/2024 Age by current US: 21 weeks 2 days RUKHSANA by current US: 04/12/2024 US/US OB cervical length IMPRESSION: 1. Single live intrauterine with growth detailed above. Electronically authenticated by: JOSÉ MIGUEL LIMON Date: 12/03/2023 11:58
--- OUTSIDE RECORDS SUMMARY | 2023-12-03 10:43 | XMS_ITS | CCD ---
Author Organization [facility] Care Team Providers Care Endoscopy Technician Name Role Phone Unavailable Primary Care Provider UnavailMORALES Renner Referring Unavailable NON STAFF Primary Care Provider UnavailDO Dom Cerda Jr Attending Provider [phone] Bhavya Estrada Primary Care Unavailable Sean, Bhavya Primary Care Unavailable Bhavya Estrada Attending Unavailable Sean, Bhavya Primary Care Unavailable JEFFRY ., DR ADAMS Admitting Unavailable JEFFRY ., DR ADAMS Attending Unavailable JEFFRY ., DR ADAMS Consulting Unavailable ZIEBER, DR JOSÉ MIGUEL Garcia Consulting Unavailable JEFFRY ., DR ADAMS Admitting Unavailable JEFFRY ., DR ADAMS Attending Unavailable JEFFRY ., DR ADAMS Consulting Unavailable ANDERSON MORRIS Consulting Unavailable MATILDA II, PANFILO Consulting Unavailable SULEIMAN MENDOZA Consulting Unavailable JEFFRY ., DR ADAMS Attending Unavailable JEFFRY ., DR ADAMS Consulting Unavailable JEFFRY ., DR ADAMS Admitting Unavailable ANGIE VIVAR Attending Unavailable JEFFRY, ANGIE Attending Unavailable JEFFRYANGIE Attending Unavailable Allergies Allergy Classification Reported Allergen(s) Allergy Type Date of Onset Reaction(s) Facility (2 sources) Amoxicillin; Translations: [amoxicillin] Drug Allergy [facility] Repository (1 source) tiZANidine; Translations: [tiZANidine] Drug Allergy [facility] Hospital Repository Problems Problem Classification Problem [...] 08-23-2022 BASO # 0.1 103/ul Normal 0.0-0.[address] [facility] Comment on above: Performed By: #### C BC #### [facility] [address] [address] [address] Car Lozada Basophils/100 WBC (Bld) 0.5 % Normal 0.2-2.[address] [facility] Comment on above: Performed By: #### C BC #### [facility] [address] [address] [address] Car Lozada EO # 0.6 103/ul Normal 0.0-0.[address] [facility] Comment on above: Performed By: #### C BC #### [facility] [address] [address] [address] Car Lozada Eosinophils/100 WBC (Bld) 5.9 % Normal 0.9-7.[address] [facility] Comment on above: Performed By: #### C BC #### [facility] [address] [address] [address] Car Lozada Erythrocyte distribution width (RBC) [Ratio] 12.6 % Normal 11.0-15.[address] [facility] Comment on above: Performed By: #### C BC #### [facility] [address] [address] [address] Car Lozada Hematocrit (Bld) [Volume fraction] 42.0 % Normal 36.0-48.[address] [facility] Comment on above: Performed By: #### C BC #### [facility] [address] [address] [address] Car Lozada Hemoglobin (Bld) [Mass/Vol] 14.1 g/dL Normal 12.0-16.[address] [facility] Comment on above: Performed By: #### C BC #### [facility] [address] [address] [address] Car Lozada IG # 0.04 10e3/ul Critically high 0.00-0.03 [facility] Comment on above: Performed By: #### C BC #### [facility] [address] [address] [address] Car Lozada IG % 0.4 % Normal 0.0-0.[address] [facility] Comment on above: Performed By: #### C BC #### [facility] [address] [place] [address] Dr. Car Lozada LYMPH # 3.6 103/ul Normal 1.2-3.[address] [facility] Comment on above: Performed By: #### C BC #### [facility] [address] [place] [address] Dr. Car Lozada Lymphocytes/100 WBC (Bld) 34.7 % Normal 20.5-60.[address] [facility] Comment on above: Performed By: #### C BC #### [facility] [address] [place] [address] Dr. Car Lozada MANUAL DIFF REQ NO Normal [facility] Comment on above: Performed By: #### C BC #### [facility] [address] [place] [address] Dr. Car Lozada MCH (RBC) [Entitic mass] 31.2 pg Normal 26.7-34.[address] [facility] Comment on above: Performed By: #### C BC #### [facility] [address] [place] [address] Dr. Car Lozada MCHC (RBC) [Mass/Vol] 33.6 g/dL Normal 29.9-35.[address] [facility] Comment on above: Performed By: #### C BC #### [facility] [address] [place] [address] Dr. Car Lozada MCV (RBC) [Entitic vol] 92.9 fL Normal 81.0-99.[address] [facility] Comment on above: Performed By: #### C BC #### [facility] [address] [place] [address] Dr. Car Lozada MONO # 0.9 103/ul Critically high 0.3-0.8 [facility] Comment on above: Performed By: #### C BC #### [facility] [address] [address] [address] Car Lozada Monocytes/100 WBC (Bld) 8.3 % Normal 1.7-12.[address] [facility] Comment on above: Performed By: #### C BC #### [facility] [address] [place] [address] Dr. Car Lozada NEUT # 5.2 103/ul Normal 1.4-6.[address] [facility] Comment on above: Performed By: #### C BC #### [facility] [address] [place] [address] Dr. Car Lozada Neutrophils/100 WBC (Bld) 50.2 % Normal 43.0-75.[address] [facility] Comment on above: Performed By: #### C BC #### [facility] [address] [place] [address] Dr. Car Lozada Platelet mean volume (Bld) [Entitic vol] 10.0 fL Normal 9.5-13.[address] [facility] Comment on above: Performed By: #### C BC #### [facility] [address] [place] [address] Dr. Car Lozada PLT 251 103/ul Normal 150-[address] [facility] Comment on above: Performed By: #### C BC #### [facility] [address] [place] [address] Dr. Car Lozada RBC 4.52 106/ul Normal 4.20-5.[address] [facility] Comment on above: Performed By: #### C BC #### [facility] [address] [place] [address] Dr. Car Lozada WBC 10.3 103/ul Normal 4.0-11.[address] [facility] Comment on above: Performed By: #### C BC #### [facility] [address] [address] [address] Car Lozada PREG QUANT HCGon 08-23-2022 HCG QUANT <[address] [facility] Comment on above: Performed By: #### P REGQNT #### [facility] [address] [place] [address] Dr. Car Lozada HCG RANGE SEE BELOW Normal [facility] Comment on above: Result Comment: 5-50 0.2-1 WEEK 50-500 1-2 WEEKS 100-5,000 2-3 WEEKS 500-10,000 3-4 WEEKS 1,000-50,000 4-5 WEEKS 10,000-100,000 5-6 WEEKS 15,000-200,000 6-8 WEEKS 10,000-100,000 2-3 MONTHS Performed By: #### P REGQNT #### [facility] [address] [place] [address] Dr. Car Lozada XR CHEST 2 Von [...] JOSÉ MIGUEL LIMON Date: 2022-08-16 10:[address] [facility] PAP ACOG PANEL 2: 21 to 29on 06-25-2022 . . Normal [facility] Comment on above: Performed By: #### [id number] #### [facility] [address] [place] [address] Dr. Car Lozada Age Gdln ACOG Testing 21-[address] [facility] Comment on above: Performed By: #### [id number] #### [facility] [address] [place] [address] Dr. Car Lozada DIAGNOSIS: Comment Abnormal [facility] Comment on above: Result Comment: EPIT HELIAL CELL ABNORMALITY. LOW GRADE SQUAMOUS INTRAEPITHELIAL LESION (LSIL). Performed By: #### [id number] #### [facility] [address] [place] [address] Dr. Car Lozada Electronically signed by: Comment Normal [facility] Comment on above: Result Comment: Phyllis Vital MD, Pathologist Performed By: #### [id number] #### [facility] [address] [place] [address] Dr. Car Lozada Methodology: Comment Normal [facility] Comment on above: Result Comment: This liquid based ThinPrep(R) pap test was screened with the use of an image guided system. Performed By: #### [id number] #### [facility] [address] [place] [address] Dr. Car Lozada Note: Comment Normal [facility] Comment on above: Result Comment: The Pap smear is a screening test designed to aid in the detection of premalignant and malignant conditions of the uterine cervix. It is not a diagnostic procedure and should not be used as the sole means of detecting cervical cancer. Both false-positive and false-negative reports do occur. . Performed By: #### 4 [id number] #### [facility] [address] [place] [address] Dr. Car Lozada Pathologist Provided ICD10 Comment Normal [facility] Comment on above: Result Comment: [id number]. [id number] Performed By: #### 4 [id number] #### [facility] [address] [place] [address] Dr. Car Lozada Performed by: Comment Normal [facility] Comment on above: Result Comment: Sidney Masters, Raspberry Checker (ASCP) Performed By: #### [id number] #### [facility] [address] [place] [address] Dr. Car Lozada Recommendation: Comment Abnormal [facility] Comment on above: Result Comment: Sugg est follow up as clinically appropriate. Performed By: #### 4 [id number] #### [facility] [address] [place] [address] Dr. Car Lozada Reflex Criteria: Comment Normal [facility] Comment on above: Result Comment: The HPV DNA reflex criteria were not met with this specimen result therefore, no HPV testing was performed. . Performed By: #### 4 [id number] #### [facility] [address] [address] [address] Car Lozada Specimen adequacy: Comment Normal [facility] Comment on above: Result Comment: Sati sfactory for evaluation. Endocervical and/or squamous metaplastic cells (endocervical component) are present. Performed By: #### 4 [id number] #### [facility] [address] [address] [address] Car Lozada Body fluid albumin measureme nt (mass/volume)Ordered By: Dom Paulino on 12-22-2021 Albumin (Body fld) [Mass/Vol] 3.4 g/dL 3.2-5.5 [facility] Cholesterol [Mass/volume] in Serum or PlasmaOrdered By: Dom Paulino on 12-22-2021 Cholesterol [Mass/Vol] 228 mg/dL 140-200 [facility] Comment on above: Chol less than 200 m g/dl low risk Chol 201-239 mg/dl borderline risk Chol 240 mg/dl and greater high risk Cholesterol in LDL Calc [Mas s/Vol]Ordered By: Dom Paulino on 12-22-2021 Cholesterol in LDL [Mass/Vol] 136 mg/dL 0-100 [facility] Comment on above: LDL ATP III CLASSIFI CATION LDL less than 100 mg/dL Optimal LDL 100-129 mg/dL Near or above optimal LDL 130-159 mg/dL Borderline high LDL 160-189 mg/dL High LDL greater than 189 mg/dL Very high Cholesterol in VLDL Calc [Ma ss/Vol]Ordered By: Dom Paulino on 12-22-2021 Cholesterol in VLDL [Mass/Vol] 19 mg/dL [facility] Comprehensive Metabolic Empo n 12-22-2021 Albumin [Mass/Vol] 3.4 g/dL Normal 3.2-5.5 [facility] Comment on above: Performed By: #### E BS CMP, EBS LIPID #### [facility] [address] Albumin/Globulin [Mass ratio] 1.2 {ratio} Normal [facility] Comment on above: Performed By: #### E BS CMP, EBS LIPID #### [facility] [address] [id number] [place] ALP [Catalytic activity/Vol] 48 U/L Normal 32-92 [facility] Comment on above: Performed By: #### E BS CMP, EBS LIPID #### [facility] [address] [place] [address] [place] ALT [Catalytic activity/Vol] 14 U/L Normal 10-60 [facility] Comment on above: Performed By: #### E BS CMP, EBS LIPID #### [facility] [address] [place] [address] [place] AST [Catalytic activity/Vol] 15 U/L Normal 10-42 [facility] Comment on above: Performed By: #### E BS CMP, EBS LIPID #### [facility] [address] Bilirubin [Mass/Vol] 0.3 mg/dL Normal 0.3-1.2 [facility] Comment on above: Performed By: #### E BS CMP, EBS LIPID #### [facility] [address] [place] [address] [place] Calcium [Mass/Vol] 9.3 mg/dL Normal 8.2-10.2 [facility] Comment on above: Performed By: #### E BS CMP, EBS LIPID #### [facility] [address] [id number] [place] Chloride [Moles/Vol] 101 mmol/L Normal 95-114 [facility] Comment on above: Performed By: #### E BS CMP, EBS LIPID #### [facility] [address] [id number] [place] CO2 [Moles/Vol] 23.8 mmol/L Normal 22.0-30.0 [facility] Comment on above: Performed By: #### E BS CMP, EBS LIPID #### [facility] [address] [id number] [place] Creatinine [Mass/Vol] 0.79 mg/dL Normal 0.44-1.03 [facility] Comment on above: Performed By: #### E BS CMP, EBS LIPID #### [facility] [address] [place] [address] [place] Estimated GFR ( [place] > 60 Normal [facility] Comment on above: Result Comment: GFR estimated reference range: According to KDOQI guidelines, <60 ml/min/1.73m2 is sufficient to diagnose a patient with chronic kidney disease. Performed By: #### E BS CMP, EBS LIPID #### [facility] [address] [place] [address] [place] Estimated GFR (Non- Am > 60 Normal [facility] Comment on above: Performed By: #### E BS CMP, EBS LIPID #### [facility] [address] Globulin (S) [Mass/Vol] 2.8 g/dL Normal [facility] Comment on above: Performed By: #### E BS CMP, EBS LIPID #### [address] Glucose [Mass/Vol] 76 mg/dL Normal 70-100 [facility] Comment on above: Performed By: #### E BS CMP, EBS LIPID #### [address] Potassium [Moles/Vol] 3.8 mmol/L Normal 3.5-5.1 [facility] Comment on above: Performed By: #### E BS CMP, EBS LIPID #### [facility] [address] [place] [address] [place] Protein [Mass/Vol] 6.2 g/dL Normal 6.1-7.9 [facility] Comment on above: Performed By: #### E BS CMP, EBS LIPID #### [facility] [address] [place] [address] [place] Sodium [Moles/Vol] 136 mmol/L Normal 136-146 [facility] Comment on above: Performed By: #### E BS CMP, EBS LIPID #### [facility] [address] Urea nitrogen [Mass/Vol] 10 mg/dL Normal 9-23 [facility] Comment on above: Performed By: #### E BS CMP, EBS LIPID #### [facility] [address] [id number] [facility] Creatinine and Glomerular fi ltration rate.predicted panel (S/P/Bld)Ordered By: Dom Paulino on 12-22-2021 Creatinine [Mass/Vol] 0.79 mg/dL 0.44-1.03 [facility] Estimated glomerular filtrat ion rate (GFR) non- AmericanOrdered By: Dom Paulino on 12-22-2021 GFR/1.73 sq M.predicted among non-blacks MDRD (S/P/Bld) [Vol rate/Area] > 60 mL/Min [facility] Globulin Calc (S) [Mass/Vol] Ordered By: Dom Paulino on 12-22-2021 Globulin (S) [Mass/Vol] 2.8 g/dL [facility] - Chemistry and C hemistry - challengeOrdered By: Dom Paulino on 12-22-2021 Glucose [Mass/Vol] 76 mg/dL 70-100 [facility] Lipid Profileon 12-22-2021 Cholesterol [Mass/Vol] 228 mg/dL High 140-200 [facility] Comment on above: Result Comment: Chol less than 200 mg/dl low risk Chol 201-239 mg/dl borderline risk Chol 240 mg/dl and greater high risk Performed By: #### E BS CMP, EBS LIPID #### [facility] [address] [id number] [place] Cholesterol in HDL [Mass/Vol] 73 mg/dL Normal 35-85 [facility] Comment on above: Result Comment: HDL CHOL ATP-III CLASSIFICATION Cardiovascular Risk HDL > or equal to 60 mg/dL LOW HDL < 40 mg/dL HIGH Performed By: #### E BS CMP, EBS LIPID #### [facility] [address] [id number] [facility] Cholesterol.total/Janey sterol in HDL [Mass ratio] 3.1 {ratio} Normal <5.0 [facility] Comment on above: Result Comment: PERF ORMED BY: [facility] [address] [place] [address] PATHOLOGIST HOT BOX CHECKER DENYS WOO M.D. Performed By: #### E BS CMP, EBS LIPID #### [facility] [address] LDL Cholesterol,Calculated 136 mg/dL High 0-100 [facility] Comment on above: Result Comment: LDL ATP III CLASSIFICATION LDL less than 100 mg/dL Optimal LDL 100-129 mg/dL Near or above optimal LDL 130-159 mg/dL Borderline high LDL 160-189 mg/dL High LDL greater than 189 mg/dL Very high Performed By: #### E BS CMP, EBS LIPID #### [facility] [address] Triglyceride w/Reflex 95 mg/dL Normal 35-149 [facility] Comment on above: Result Comment: TRIG ATP III CLASSIFICATION TRIG less than 150 mg/dL Normal TRIG 150-199 mg/dL Borderline high TRIG 200-500 mg/dL High TRIG greater than 500 mg/dL Very high Standard traceable to the Center for Disease Conrtrol and Prevention (CDC) test method. Performed By: #### E BS CMP, EBS LIPID #### [facility] [address] VLDL CHOLESTEROL 19 mg/dL Normal [facility] Comment on above: Performed By: #### E BS CMP, EBS LIPID #### [facility] [address] No Panel InformationOrdered By: Dom Paulino on 12-22-2021 Estimated GFR () > 60 mL/Min [facility] Comment on above: GFR estimated refere nce range: According to KDOQI guidelines, <60 ml/min/1.73m2 is sufficient to diagnose a patient with chronic kidney disease. Pharmacy Creatinine Clearance (Chem N/A [facility] Triglycerides Reflex 95 mg/dL 35-149 [facility] Comment on above: TRIG ATP III CLASSIF ICATION TRIG less than 150 mg/dL Normal TRIG 150-199 mg/dL Borderline high TRIG 200-500 mg/dL High TRIG greater than 500 mg/dL Very high Standard traceable to the Center for Disease Conrtrol and Prevention (CDC) test method. Protein [Mass/volume] in Ser um or PlasmaOrdered By: Dom Paulino on 12-22-2021 Protein [Mass/Vol] 6.2 g/dL 6.1-7.9 [facility] Serum or plasma alanine pan otransferase measurement without P-5'-P (enzymatic activiOrdered By: Dom Paulino on 12-22-2021 ALT No additional P-5'-P [Catalytic activity/Vol] 14 U/L 10-60 [facility] Serum or plasma albumin/glob ulin mass ratioOrdered By: Dom Paulino on 12-22-2021 Albumin/Globulin [Mass ratio] 1.2 {ratio} [facility] Serum or plasma alkaline nina sphatase measurement (enzymatic activity/volume)Ordered By: Dom Paulino on 12-22-2021 ALP [Catalytic activity/Vol] 48 U/L 32-92 [facility] Serum or plasma aspartate am inotransferase measurement (enzymatic activity/volume)Ordered By: Dom Paulino on 12-22-2021 AST [Catalytic activity/Vol] 15 U/L 10-42 [facility] Serum or plasma calcium dexter urement (mass/volume)Ordered By: Dom Paulino on 12-22-2021 Calcium [Mass/Vol] 9.3 mg/dL 8.2-10.2 [facility] Serum or plasma chloride glenis surement (moles/volume)Ordered By: Dom Paulino on 12-22-2021 Chloride [Moles/Vol] 101 mmol/L 95-114 [facility] Serum or plasma high density lipoprotein (HDL) cholesterol measurementOrdered By: Dom Paulino on 12-22-2021 Cholesterol in HDL [Mass/Vol] 73 mg/dL 35-85 [facility] Comment on above: HDL CHOL ATP-III CLA SSIFICATION Cardiovascular Risk HDL > or equal to 60 mg/dL LOW HDL < 40 mg/dL HIGH Serum or plasma potassium me asurement (moles/volume)Ordered By: Dom Paulino on 12-22-2021 Potassium [Moles/Vol] 3.8 mmol/L 3.5-5.1 [facility] Serum or plasma sodium measu rement (moles/volume)Ordered By: Dom Paulino on 12-22-2021 Sodium [Moles/Vol] 136 mmol/L 136-146 [facility] Serum or plasma total biliru bin measurement (mass/volume)Ordered By: Dom Paulino on 12-22-2021 Bilirubin [Mass/Vol] 0.3 mg/dL 0.3-1.2 [facility] Serum or plasma total carbon dioxide measurement (moles/volume)Ordered By: Dom Paulino on 12-22-2021 CO2 [Moles/Vol] 23.8 mmol/L 22.0-30.0 [facility] Serum or plasma total choles terol/high density lipoprotein (HDL) cholesterol mass ratOrdered By: Dom Paulino on 12-22-2021 Cholesterol.total/Janey sterol in HDL [Mass ratio] 3.1 {ratio} [facility] Serum or plasma urea nitroge n measurement (mass/volume)Ordered By: Dom Paulino on 12-22-2021 Urea nitrogen [Mass/Vol] 10 mg/dL 9-23 [facility] Outside Recordson 09-13-2021 Outside Records [id number][facility] Outside Records [id number] #1.00[facility] Outside Records [id number] [facility]-2021 Consent Forms [id number] #1.00[facility] Progress Note - Nurseon Progress Note - Nurse Antigen test ordered, test resulted positive, patient informed of positive result. In house test ordered, patient informed and swabbed, specimen sent to lab. [Electronically Signed on: 07/11/2021 16:04 EST] Kamini Tovar RN [Verified on: 07/11/2021 16:04 EST] Kamini Tovar RN [facility] Progress Note - Nurse Antigen test ordered, test resulted negative, patient informed of negative result. [Electronically Signed on: 07/11/2021 11:45 EST] Kamini Tovar RN [Verified on: 07/11/2021 11:45 EST] Kamini Tovar RN [facility] Measles (Rubeola) Imon 11-28 Measles (Rubeola) Im 3.49 Normal >1.[address] [facility] Comment on above: Result Comment: Interpretation: IMMUNE Reference Range: <0.91 Not Immune 0.91-1.09 Equivocal >1.09 Immune Performed By: #### M EI, JUDY, VZI, TSPOT, MEÑO #### [address] [address] Cigarette Lighter Repairer: Maury Watts MD Mumps,Immun,Abon 11-28-2020 Mumps,Immun,Ab 1.48 Normal >1.09 [facility] Comment on above: Result Comment: Interpretation: IMMUNE Reference Range: <0.91 Not Immune 0.91-1.09 Equivocal >1.09 Immune Performed By: #### M EI, JUDY, VZI, TSPOT, MEÑO #### [address] [place] [id number] Cigarette Lighter Repairer: Maury Watts MD T-Spoton 11-28-2020 T-Spot. TB Test Normal [facility] Comment on above: Result Comment: Myla [address]anse [address] [place] [address] (NOTE) T-SPOT.TB Test Results --------- T-SPOT TB [...] M EI, JUDY, VZI, TSPOT, MEÑO #### [employer] [address] [place], [place] [id number] Cigarette Lighter Repairer: Maury Watts MD VZ Immunityon 11-28-2020 VZ Immunity 2.04 Normal >1.09 [facility] Comment on above: Result Comment: Interpretation: IMMUNE Reference Range: <0.91 Not Immune 0.91-1.09 Equivocal >1.09 Immune Performed By: #### M EI, JUDY, VZI, TSPOT, MEÑO #### [employer] [address] [place], [place] [id number] Cigarette Lighter Repairer: Maury Watts MD Rubella Ab, IgGon 11-25-2020 Rubella Ab, IgG 150.4 IU/mL Normal [facility] Comment on above: Result Comment: REFERENCE RANGE: <5.0 NON-REACTIVE (non-immune) 5.0 TO 9.9 EQUIVOCAL >=10.0 REACTIVE (immune) Performed By: #### M EI, JUDY, VZI, TSPOT, MEÑO #### [employer] [address] [place] [address] Cigarette Lighter Repairer: Maury Watts MD Rubella antibody, IgGOrdered By: Morales Gardner on 11-25-2020 Rubella virus IgG Ql (S) 150.4 IU/mL [facility] Phone: Comment on above: REFERENCE RANGE: <5.0 NON-REACTIVE (non-immune) 5.0 TO 9.9 EQUIVOCAL >=10.0 REACTIVE (immune) [facility] Phone: Encounters Encounter Date Encounter Type Care Provider Facility Start: 11-04-2023 End: 11-04-2023 ambulatory ANGIE VIVAR Not Available Start: 10-07-2023 End: 10-07-2023 ambulatory ANGIE VIVAR Not Available Start: 09-05-2023 End: 09-05-2023 ambulatory ANGIE VIVAR Not Available Start: 05-21-2023 End: 05-21-2023 ambulatory ANGIE VIVAR Not Available Start: 08-23-2022 End: 08-23-[address] ANGIE VIVAR . Facility:[facility] Start: 08-20-2022 Encounter for preprocedural respiratory examination DR ANGIE VIVAR . [facility] Start: 08-16-2022 End: 08-17-[address] ANGIE VIVAR . Facility:[facility] Start: 08-16-2022 End: 08-17-2022 Encounter for preprocedural respiratory examination DR ANGIE VIVAR . Facility: Start: 06-13-2022 End: 06-13-[address] ANGIE VIVAR . Facility: Start: 04-26-2022 End: 04-27-2022 ambulatory Bhavya [facility] Facility:[facility] Start: 12-22-2021 End: 12-22-2021 Departed Referred [facility] [address] Start: 07-13-2021 End: 07-13-2021 ambulatory [facility] Facility:[facility] Start: 07-12-2021 End: 07-12-2021 ambulatory [facility] Facility:[facility] Start: 11-25-2020 End: 11-26-2020 ambulatory MORALES GARDNER [facility] Start: 11-25-2020 End: 11-25-2020 Subsequent hospital visit by physician [facility] Laboratory Procedures Date Procedure Procedure Detail Performing Clinician Start: 11-25-2020 Antibody rubella Omkar Gardner MD Work Phone: Plan of Treatment Date Care Activity Detail Author Start: 03-08-2021 Influenza vaccination Flu vacc ine (Season Ended) [employer] Work Phone: Start: 2005 COVID-19 Vaccine (1) COVID-19 Vaccin e (1) [facility] Phone: End: 11-25-2020 Mumps Antibody, IgG Mumps Antibody, IgG Lab Routine Once for 1 Occurrences starting 11/25/2020 until 11/25/2020 [facility] Phone: Comment on above: Once for 1 Occurrenc es starting 11/25/2020 until 11/25/2020 Mumps Antibody, IgG Mumps Antibo dy, IgG Lab Routine 11/25/2020 3:18 PM EDT [facility] Phone: End: 11-25-2020 Rubeola Antibody, IgG Rubeola Antibody, IgG Lab Routine Once for 1 Occurrences starting 11/25/2020 until 11/25/2020 [facility] Phone: Comment on above: Once for 1 Occurrenc es starting 11/25/2020 until 11/25/2020 Rubeola Antibody, IgG Rubeola An tibody, IgG Lab Routine 11/25/2020 3:18 PM EDT [facility] Phone: End: 11-25-2020 Tb antigen response gamma interferon t-cell susp T-Spot TB Test Lab Routine Once for 1 Occurrences starting 11/25/2020 until 11/25/2020 [facility] Phone: Comment on above: Once for 1 Occurrenc es starting 11/25/2020 until 11/25/2020 Tb antigen response gamma interferon t-cell susp T-Spot TB Test Lab Routine 11/25/2020 3:18 PM EDT [facility] Phone: End: 11-25-2020 Varicella Zoster Antibody, IgG Varicella Zoster Antibody, IgG Lab Routine Once for 1 Occurrences starting 11/25/2020 until 11/25/2020 [facility] Phone: Comment on above: Once for 1 Occurrenc es starting 11/25/2020 until 11/25/2020 Varicella Zoster Antibody, IgG Varicella Zoster Antibody, IgG Lab Routine 11/25/2020 3:18 PM EDT [facility] Phone: Payers Date Payer Category Payer Unknown [id number] 2020 Unknown [id number] 1993 Unknown [id number] 2.16.84 [id number] 1993 Unknown [id number] 2.16.84 [id number] 1993 Unknown [id number] 2.16.84 [id number] 1993 Unknown [id number] 2.16.84 [id number] 1993 Unknown [id number] 2.16.84 [id number] 1993 Unknown [id number] 2.16.84 [id number] 1993 Unknown [id number] 2.16.84 [id number] 1993 Unknown [id number] 1959 Unknown [id number] Self-pay Self Pay [id number] Social History Date Type Detail Facility Tobacco smoking stat [facility] Unknown if ever smoked [facility] Phone: Start: 1995 Sex Assigned At Not on file Ron oliva [employer] Work Phone: Start: 1995 Sex Assigned At Female [facility] Clinical Note 08-23-2022 Note Date & Type Note Facility 08-23-2022 Note OPERATIVE NOTE OPERATION DATE: 08/23/2022 PROCEDURE: LEEP Procedure. PREOPERATIVE DIAGNOSIS: Cervical dysplasia. POSTOPERATIVE DIAGNOSIS: Cervical dysplasia. ANESTHESIA: General. SURGEON: Angie Vivar D.O. DIRECTOR OF ACCOUNTS RECEIVABLE: None. BLOOD LOSS: 5 mL. SPECIMEN: Ectocervical [...] to Recovery Room in stable condition. [facility] Medication management note 06-11-2022 Note Date & Type Note Facility 06-11-2022 Note Entered by Diane Wadsworth on June 11, 2022 09:44:53 EST From: Diane Wadsworth To: [facility] #[id number] Sent: 06/11/2022 09:44:53 EST Subject: Medication Management Submitted: Complete:desogestrel-ethinyl estradiol (Velivet oral tablet) Signed by Diane Wadsworth 06/11/2022 09:44:00 EST Approved desogestrel-ethinyl estradiol (VELIVET 28 DAY TABLET) take 1 tablet by mouth once daily Qty: 84 tab(s) Days Supply: 84 Refills: 0 Substitutions Allowed Route To Pharmacy - [facility][id number] Signed by Diane Wadsworth Patient matched by Diane Wadsworth on 06/11/2022 09:41:06 EST From: [facility] #[id number] To: Bhavya Estrada MD Sent: June 11, 2022 8:39:02 AM [employer] [facility] Subject: Medication Management Due: June 12, 2022 12:05:33 AM [employer] On Hold Pending Signature Drug: desogestrel-ethinyl estradiol (Velivet oral tablet), take 1 tablet by mouth once daily Quantity: 84 tab(s) Days Supply: 84 Refills: 1 Substitutions Allowed Notes from Pharmacy: Dispensed Drug: desogestrel-ethinyl estradiol (Velivet oral tablet), take 1 tablet by mouth once daily Quantity: 84 tab(s) Days Supply: 84 Refills: 0 Substitutions Allowed Notes from Pharmacy: [facility] Evaluation note Note Date & Type Note Facility Evaluation note No assessment information availa [facility] Work Phone: Summary Purpose Family History [...] section and content) DATE CREATED AUTHOR 12/02/[address] [facility] DATE CREATED AUTHOR AUTHOR'S ORGANIZ ATION 12/23/[address] [facility] DATE CREATED AUTHOR AUTHOR'S ORGANIZ ATION 06/11/2022 [facility] DATE CREATED AUTHOR AUTHOR'S ORGANIZ ATION 09/05/2022 [facility] DATE CREATED AUTHOR AUTHOR'S ORGANIZ ATION 11/05/2023 [facility] [employer] Care Teams (unrecognized sec tion and content) Team Status: Inactive Member Role Status Dates NON STAFF Primary Care Provider Active Dom Paulino Jr DO Attending Provider Active Team Status: Active [...] BE BASED ON THE PRIMARY CLINICAL RECORDS. [facility] provides no warranty or guarantee of the accuracy or completeness of information in this document.
== END 2023-12-03 10:37 | disposition home or self-care (01) ==
LOC: NOMS 10:37
PROVIDERS: Visit Provider Obstetrics & Gynecology
DX: Z36.89 Encounter for other specified antenatal screening (principal); Z3A.21 21 weeks gestation of pregnancy
CPT/HCPCS: 76805; 76817

== ENCOUNTER 2023-12-27 12:04 | Outpatient (OUT) | payer BC, SELFPAY ==
--- OUTSIDE RECORDS SUMMARY | 2023-12-27 12:23 | XMS_ITS | CCD ---
Author Organization [facility] Care Team Providers Care Bread Packer Name Role Phone Unavailable Primary Care Provider UnavailMORALES Renner Referring Unavailable NON STAFF Primary Care Provider UnavailDO Dom Cerda Jr Attending Provider [phone] Bhavya Estrada Primary Care Unavailable Bhavya Estrada Primary Care Unavailable Bhavya Estrada Attending Unavailable Bhavya Estrada Primary Care Unavailable JEFFRY ., DR ADAMS [...] ADAMS Admitting Unavailable ANGIE VIVAR Attending Unavailable JEFFRYANGIE IVY Attending Unavailable JEFFRYANGIE Attending Unavailable JEFFRYANGIE Attending Unavailable Allergies Allergy Classification Reported Allergen(s) Allergy Type Date of Onset Reaction(s) Facility (2 sources) Amoxicillin; Translations: [amoxicillin] Drug Allergy [facility] Hospital Repository (1 source) tiZANidine; Translations: [tiZANidine] Drug Allergy [facility] Hospital Repository Problems Problem Classification Problem [...] 08-23-2022 BASO # 0.1 103/ul Normal 0.0-0.1 [facility] Comment on above: Performed By: #### C BC #### [facility] [address] [place] [address] Dr. Car Lozada Basophils/100 WBC (Bld) 0.5 % Normal 0.2-2.0 [facility] Comment on above: Performed By: #### C BC #### [facility] [address] [place] [address] Dr. Car Lozada EO # 0.6 103/ul Normal 0.0-0.7 [facility] Comment on above: Performed By: #### C BC #### [facility] [address] [place] [address] Dr. Car Lozada Eosinophils/100 WBC (Bld) 5.9 % Normal 0.9-7.0 [facility] Comment on above: Performed By: #### C BC #### [facility] [address] [place] [address] Dr. Car Lozada Erythrocyte distribution width (RBC) [Ratio] 12.6 % Normal 11.0-15.0 [facility] Comment on above: Performed By: #### C BC #### [facility] [address] [place] [address] Dr. Car Lozada Hematocrit (Bld) [Volume fraction] 42.0 % Normal 36.0-48.0 [facility] Comment on above: Performed By: #### C BC #### [facility] [address] [place] [address] Dr. Car Lozada Hemoglobin (Bld) [Mass/Vol] 14.1 g/dL Normal 12.0-16.0 [facility] Comment on above: Performed By: #### C BC #### [facility] [address] [place] [address] Dr. Car Lozada IG # 0.04 10e3/ul Critically high 0.00-0.03 [facility] Comment on above: Performed By: #### C BC #### [facility] [address] [place] [address] Dr. Car Lozada IG % 0.4 % Normal 0.0-0.5 [facility] Comment on above: Performed By: #### C BC #### [facility] [address] [place] [address] Dr. Car Lozada LYMPH # 3.6 103/ul Normal 1.2-3.8 [facility] Comment on above: Performed By: #### C BC #### [facility] [address] [place] [address] Dr. Car Lozada Lymphocytes/100 WBC (Bld) 34.7 % Normal 20.5-60.0 [facility] Comment on above: Performed By: #### C BC #### [facility] [address] [place] [address] Dr. Car Lozada MANUAL DIFF REQ NO Normal [facility] Comment on above: Performed By: #### C BC #### [facility] [address] [place] [address] Dr. Car Lozada MCH (RBC) [Entitic mass] 31.2 pg Normal 26.7-34.0 [facility] Comment on above: Performed By: #### C BC #### [facility] [address] [place] [address] Dr. Car Lozada MCHC (RBC) [Mass/Vol] 33.6 g/dL Normal 29.9-35.2 [facility] Comment on above: Performed By: #### C BC #### [facility] [address] [place] [address] Dr. Car Lozada MCV (RBC) [Entitic vol] 92.9 fL Normal 81.0-99.0 [facility] Comment on above: Performed By: #### C BC #### [facility] [address] [address] [address] Car Lozada MONO # 0.9 103/ul Critically high 0.3-0.8 [facility] Comment on above: Performed By: #### C BC #### [facility] [address] [address] [address] Car Lozada Monocytes/100 WBC (Bld) 8.3 % Normal 1.7-12.0 [facility] Comment on above: Performed By: #### C BC #### [facility] [address] [address] [address] Car Lozada NEUT # 5.2 103/ul Normal 1.4-6.5 [facility] Comment on above: Performed By: #### C BC #### [facility] [address] [place] [address] Dr. Car Lozada Neutrophils/100 WBC (Bld) 50.2 % Normal 43.0-75.0 [facility] Comment on above: Performed By: #### C BC #### [facility] [address] [address] [address] Car Lozada Platelet mean volume (Bld) [Entitic vol] 10.0 fL Normal 9.5-13.5 [facility] Comment on above: Performed By: #### C BC #### [facility] [address] [place] [address] Dr. Car Lozada PLT 251 103/ul Normal 150-450 [facility] Comment on above: Performed By: #### C BC #### [facility] [address] [place] [address] Dr. Car Lozada RBC 4.52 106/ul Normal 4.20-5.40 [facility] Comment on above: Performed By: #### C BC #### [facility] [address] [address] [address] Car Lozada WBC 10.3 103/ul Normal 4.0-11.0 [facility] Comment on above: Performed By: #### C BC #### [facility] [address] [address] [address] Car Lozada PREG QUANT HCGon 08-23-2022 HCG QUANT <1 Normal [facility] Comment on above: Performed By: #### P REGQNT #### [facility] [address] [address] [address] Car Lozada HCG RANGE SEE BELOW Normal [facility] Comment on above: Result Comment: 5-50 0.2-1 WEEK 50-500 1-2 WEEKS 100-5,000 2-3 WEEKS 500-10,000 3-4 WEEKS 1,000-50,000 4-5 WEEKS 10,000-100,000 5-6 WEEKS 15,000-200,000 6-8 WEEKS 10,000-100,000 2-3 MONTHS Performed By: #### P REGQNT #### [facility] [address] [address] [address] Car Lozada XR CHEST 2 Von [...] JOSÉ MIGUEL LIMON Date: 2022-08-16 10:17 Normal [facility] PAP ACOG PANEL 2: 19 to 27on 06-25-2022 . . Normal [facility] Comment on above: Performed By: #### [id number] #### [facility] [address] [address] [address] Car Lozada Age Gdln ACOG Testing 19- Normal [facility] Comment on above: Performed By: #### [id number] #### [facility] [address] [address] [address] Car Lozada DIAGNOSIS: Comment Abnormal [facility] Comment on above: Result Comment: EPIT HELIAL CELL ABNORMALITY. LOW GRADE SQUAMOUS INTRAEPITHELIAL LESION (LSIL). Performed By: #### [id number] #### [facility] [address] [address] [address] Car Lozada Electronically signed by: Comment Normal [facility] Comment on above: Result Comment: Phyllis Vital MD, Pathologist Performed By: #### 4 [id number] #### [facility] [address] [address] [address] Car Lozada Methodology: Comment Normal [facility] Comment on above: Result Comment: This liquid based ThinPrep(R) pap test was screened with the use of an image guided system. Performed By: #### [id number] #### [facility] [address] [place] [address] Dr. Car Lozada Note: Comment Normal [facility] Comment on above: Result Comment: The Pap smear is a screening test designed to aid in the detection of premalignant and malignant conditions of the uterine cervix. It is not a diagnostic procedure and should not be used as the sole means of detecting cervical cancer. Both false-positive and false-negative reports do occur. . Performed By: #### [id number] #### [facility] [address] [place] [address] Dr. Car Lozada Pathologist Provided ICD10 Comment Normal [facility] Comment on above: Result Comment: [id number]. [id number] Performed By: #### 4 [id number] #### [facility] [address] [place] [address] Dr. Car Lozada Performed by: Comment Normal [facility] Comment on above: Result Comment: Sidney Masters, Cloth Folder Hand (ASCP) Performed By: #### 4 [id number] #### [facility] [address] [address] [address] Car Lozada Recommendation: Comment Abnormal [facility] Comment on above: Result Comment: Sugg est follow up as clinically appropriate. Performed By: #### [id number] #### [facility] [address] [address] [address] Car Lozada Reflex Criteria: Comment Normal [facility] Comment on above: Result Comment: The HPV DNA reflex criteria were not met with this specimen result therefore, no HPV testing was performed. . Performed By: #### 4 [id number] #### [facility] [address] [address] [address] Car Lozada Specimen adequacy: Comment Normal [facility] Comment on above: Result Comment: Sati sfactory for evaluation. Endocervical and/or squamous metaplastic cells (endocervical component) are present. Performed By: #### 4 [id number] #### [facility] [address] [address] [address] Car Lozada Body fluid albumin measureme nt (mass/volume)Ordered By: Dom Paulino on 12-22-2021 Albumin (Body fld) [Mass/Vol] 3.4 g/dL 3.2-5.5 [facility] Cholesterol [Mass/volume] in Serum or PlasmaOrdered By: Dom Paulino on 12-22-2021 Cholesterol [Mass/Vol] 228 mg/dL 140-200 [facility] Comment on above: Chol less than 200 m g/dl low risk Chol 201-239 mg/dl borderline risk Chol 240 mg/dl and greater high risk Cholesterol in LDL Calc [Mas s/Vol]Ordered By: Dom Paulino on 12-22-2021 Cholesterol in LDL [Mass/Vol] 136 mg/dL 0-100 [facility] Comment on above: LDL ATP III CLASSIFI CATION LDL less than 100 mg/dL Optimal LDL 100-129 mg/dL Near or above optimal LDL 130-159 mg/dL Borderline high LDL 160-189 mg/dL High LDL greater than 189 mg/dL Very high Cholesterol in VLDL Calc [Ma ss/Vol]Ordered By: Dom Paulino on 12-22-2021 Cholesterol in VLDL [Mass/Vol] 19 mg/dL [facility] Comprehensive Metabolic Empo n 12-22-2021 Albumin [Mass/Vol] 3.4 g/dL Normal 3.2-5.5 [facility] Comment on above: Performed By: #### E BS CMP, EBS LIPID #### [facility] [address] Albumin/Globulin [Mass ratio] 1.2 {ratio} Normal [facility] Comment on above: Performed By: #### E BS CMP, EBS LIPID #### [facility] [address] [id number] [place] ALP [Catalytic activity/Vol] 48 U/L Normal 32-92 [facility] Comment on above: Performed By: #### E BS CMP, EBS LIPID #### [facility] [address] [place] [address] [place] ALT [Catalytic activity/Vol] 14 U/L Normal 10-60 [facility] Comment on above: Performed By: #### E BS CMP, EBS LIPID #### [facility] [address] [id number] [place] AST [Catalytic activity/Vol] 15 U/L Normal 10-42 [facility] Comment on above: Performed By: #### E BS CMP, EBS LIPID #### [facility] [address] [id number] [place] Bilirubin [Mass/Vol] 0.3 mg/dL Normal 0.3-1.2 [facility] Comment on above: Performed By: #### E BS CMP, EBS LIPID #### [facility] [address] [id number] [place] Calcium [Mass/Vol] 9.3 mg/dL Normal 8.2-10.2 [facility] Comment on above: Performed By: #### E BS CMP, EBS LIPID #### [facility] [address] [id number] [place] Chloride [Moles/Vol] 101 mmol/L Normal 95-114 [facility] Comment on above: Performed By: #### E BS CMP, EBS LIPID #### [facility] [address] [id number] [place] CO2 [Moles/Vol] 23.8 mmol/L Normal 22.0-30.0 [facility] Comment on above: Performed By: #### E BS CMP, EBS LIPID #### [facility] [address] [id number] [place] Creatinine [Mass/Vol] 0.79 mg/dL Normal 0.44-1.03 [facility] Comment on above: Performed By: #### E BS CMP, EBS LIPID #### [facility] [address] [place] [address] [place] Estimated GFR ( Aleena > 60 Normal [facility] Comment on above: Result Comment: GFR estimated reference range: According to KDOQI guidelines, <60 ml/min/1.73m2 is sufficient to diagnose a patient with chronic kidney disease. Performed By: #### E BS CMP, EBS LIPID #### [facility] [address] Estimated GFR (Non- Am > 60 [facility] Comment on above: Performed By: #### E BS CMP, EBS LIPID #### [facility] [address] Globulin (S) [Mass/Vol] 2.8 g/dL Normal [facility] Comment on above: Performed By: #### E BS CMP, EBS LIPID #### [facility] [address] Glucose [Mass/Vol] 76 mg/dL Normal 70-100 [facility] Comment on above: Performed By: #### E BS CMP, EBS LIPID #### [address] Potassium [Moles/Vol] 3.8 mmol/L Normal 3.5-5.1 [facility] Comment on above: Performed By: #### E BS CMP, EBS LIPID #### [facility] [address] Protein [Mass/Vol] 6.2 g/dL Normal 6.1-7.9 [facility] Comment on above: Performed By: #### E BS CMP, EBS LIPID #### [facility] [address] [place] [address] [place] Sodium [Moles/Vol] 136 mmol/L Normal 136-146 [facility] Comment on above: Performed By: #### E BS CMP, EBS LIPID #### [facility] [address] Urea nitrogen [Mass/Vol] 10 mg/dL Normal 9-23 [facility] Comment on above: Performed By: #### E BS CMP, EBS LIPID #### [facility] [address] Creatinine and Glomerular fi ltration rate.predicted panel (S/P/Bld)Ordered By: Dom Paulino on 12-22-2021 Creatinine [Mass/Vol] 0.79 mg/dL 0.44-1.03 [facility] Estimated glomerular filtrat ion rate (GFR) non- AmericanOrdered By: Dom Paulino on 12-22-2021 GFR/1.73 sq M.predicted among non-blacks MDRD (S/P/Bld) [Vol rate/Area] > 60 mL/Min [facility] Globulin Calc (S) [Mass/Vol] Ordered By: Dom Paulino on 12-22-2021 Globulin (S) [Mass/Vol] 2.8 g/dL [facility] - Chemistry and C hemistry - challengeOrdered By: Dom Paulino on 12-22-2021 Glucose [Mass/Vol] 76 mg/dL 70-100 [facility] Lipid Profileon 12-22-2021 Cholesterol [Mass/Vol] 228 mg/dL High 140-200 [facility] Comment on above: Result Comment: Chol less than 200 mg/dl low risk Chol 201-239 mg/dl borderline risk Chol 240 mg/dl and greater high risk Performed By: #### E SUSHIL CMP, EBS LIPID #### [facility] [address] Cholesterol in HDL [Mass/Vol] 73 mg/dL Normal 35-85 [facility] Comment on above: Result Comment: HDL CHOL ATP-III CLASSIFICATION Cardiovascular Risk HDL > or equal to 60 mg/dL LOW HDL < 40 mg/dL HIGH Performed By: #### E BS CMP, EBS LIPID #### [facility] [address] Cholesterol.total/Janey sterol in HDL [Mass ratio] 3.1 {ratio} Normal <5.0 [facility] Comment on above: Result Comment: PERF ORMED BY: [facility] [address] [place] [address] PATHOLOGIST INSTRUCTIONAL ASSISTANT DENYS WOO M.D. Performed By: #### E BS CMP, EBS LIPID #### [facility] [address] LDL Cholesterol,Calculated 136 mg/dL High 0-100 [facility] Comment on above: Result Comment: LDL ATP III CLASSIFICATION LDL less than 100 mg/dL Optimal LDL 100-129 mg/dL Near or above optimal LDL 130-159 mg/dL Borderline high LDL 160-189 mg/dL High LDL greater than 189 mg/dL Very high Performed By: #### E BS CMP, EBS LIPID #### [facility] [address] Triglyceride w/Reflex 95 mg/dL Normal 35-149 [facility] Comment on above: Result Comment: TRIG ATP III CLASSIFICATION TRIG less than 150 mg/dL Normal TRIG 150-199 mg/dL Borderline high TRIG 200-500 mg/dL High TRIG greater than 500 mg/dL Very high Standard traceable to the Center for Disease Conrtrol and Prevention (CDC) test method. Performed By: #### E BS CMP, EBS LIPID #### [facility] [address] VLDL CHOLESTEROL 19 mg/dL Normal [facility] Comment on above: Performed By: #### E BS CMP, EBS LIPID #### [facility] [address] No Panel InformationOrdered By: Dom Paulino on 12-22-2021 Estimated GFR () > 60 mL/Min [facility] Comment on above: GFR estimated refere nce range: According to KDOQI guidelines, <60 ml/min/1.73m2 is sufficient to diagnose a patient with chronic kidney disease. Pharmacy Creatinine Clearance (Chem N/A [facility] Triglycerides Reflex 95 mg/dL 35-149 [facility] Comment on above: TRIG ATP III CLASSIF ICATION TRIG less than 150 mg/dL Normal TRIG 150-199 mg/dL Borderline high TRIG 200-500 mg/dL High TRIG greater than 500 mg/dL Very high Standard traceable to the Center for Disease Conrtrol and Prevention (CDC) test method. Protein [Mass/volume] in Ser um or PlasmaOrdered By: Dom Paulino on 12-22-2021 Protein [Mass/Vol] 6.2 g/dL 6.1-7.9 [facility] Serum or plasma alanine pan otransferase measurement without P-5'-P (enzymatic activiOrdered By: Dom Paulino on 12-22-2021 ALT No additional P-5'-P [Catalytic activity/Vol] 14 U/L 10-60 [facility] Serum or plasma albumin/glob ulin mass ratioOrdered By: Dom Paulino on 12-22-2021 Albumin/Globulin [Mass ratio] 1.2 {ratio} [facility] Serum or plasma alkaline nina sphatase measurement (enzymatic activity/volume)Ordered By: Dom Paulino on 12-22-2021 ALP [Catalytic activity/Vol] 48 U/L 32-92 [facility] Serum or plasma aspartate am inotransferase measurement (enzymatic activity/volume)Ordered By: Dom Paulino on 12-22-2021 AST [Catalytic activity/Vol] 15 U/L 10-42 [facility] Serum or plasma calcium dexter urement (mass/volume)Ordered By: Dom Paulino on 12-22-2021 Calcium [Mass/Vol] 9.3 mg/dL 8.2-10.2 [facility] Serum or plasma chloride glenis surement (moles/volume)Ordered By: Dom Paulino on 12-22-2021 Chloride [Moles/Vol] 101 mmol/L 95-114 [facility] Serum or plasma high density lipoprotein (HDL) cholesterol measurementOrdered By: Dom Paulino on 12-22-2021 Cholesterol in HDL [Mass/Vol] 73 mg/dL 35-85 [facility] Comment on above: HDL CHOL ATP-III CLA SSIFICATION Cardiovascular Risk HDL > or equal to 60 mg/dL LOW HDL < 40 mg/dL HIGH Serum or plasma potassium me asurement (moles/volume)Ordered By: Dom Paulino on 12-22-2021 Potassium [Moles/Vol] 3.8 mmol/L 3.5-5.1 [facility] Serum or plasma sodium measu rement (moles/volume)Ordered By: Dmo Paulino on 12-22-2021 Sodium [Moles/Vol] 136 mmol/L 136-146 [facility] Serum or plasma total biliru bin measurement (mass/volume)Ordered By: Dom Paulino on 12-22-2021 Bilirubin [Mass/Vol] 0.3 mg/dL 0.3-1.2 [facility] Serum or plasma total carbon dioxide measurement (moles/volume)Ordered By: Dom Paulino on 12-22-2021 CO2 [Moles/Vol] 23.8 mmol/L 22.0-30.0 [facility] Serum or plasma total choles terol/high density lipoprotein (HDL) cholesterol mass ratOrdered By: Dom Paulino on 12-22-2021 Cholesterol.total/Janey sterol in HDL [Mass ratio] 3.1 {ratio} [facility] Serum or plasma urea nitroge n measurement (mass/volume)Ordered By: Dom Paulino on 12-22-2021 Urea nitrogen [Mass/Vol] 10 mg/dL 9-23 [facility] Outside Recordson 09-13-2021 Outside Records [id number]# [facility]-2021 Outside Records [id number] #[facility] [id number] #1.00[facility] Consent Formson 07-14-2021 Consent Forms [id number] #1.00[facility] Progress Note - Nurseon Progress Note - Nurse Antigen test ordered, test resulted positive, patient informed of positive result. In house test ordered, patient informed and swabbed, specimen sent to lab. [Electronically Signed on: 07/11/2021 16:04 EST] Kamini Tovar RN [Verified on: 07/11/2021 16:04 EST] Kamini Tovar RN Normal [facility] Progress Note - Nurse Antigen test ordered, test resulted negative, patient informed of negative result. [Electronically Signed on: 07/11/2021 11:45 EST] Kamini Tovar RN [Verified on: 07/11/2021 11:45 EST] Kamini Tovar RN [facility] Measles (Rubeola) Imon 11-28 Measles (Rubeola) Im 3.49 Normal >1.09 [facility] Comment on above: Result Comment: Interpretation: IMMUNE Reference Range: <0.91 Not Immune 0.91-1.09 Equivocal >1.09 Immune Performed By: #### M EI, JUDY, VZI, TSPOT, MEÑO #### [address] [address] Receiving Specialist: Maury Watts MD Mumps,Immun,Abon 11-28-2020 Mumps,Immun,Ab 1.48 Normal >1.09 [facility] Comment on above: Result Comment: Interpretation: IMMUNE Reference Range: <0.91 Not Immune 0.91-1.09 Equivocal >1.09 Immune Performed By: #### M EI, JUDY, VZI, TSPOT, MEÑO #### [place] [id number] Receiving Specialist: Maury Watts MD T-Spoton 11-28-2020 T-Spot. TB Test Normal [facility] Comment on above: Result Comment: [employer] [address] [place] [phone] (NOTE) T-SPOT.TB Test Results --------- T-SPOT TB [...] M EI, JUDY, VZI, TSPOT, MEÑO #### [facility] [address] [place] [address] Receiving Specialist: Maury Watts MD VZ Immunityon 11-28-2020 VZ Immunity 2.04 Normal >1.09 [facility] Comment on above: Result Comment: Interpretation: IMMUNE Reference Range: <0.91 Not Immune 0.91-1.09 Equivocal >1.09 Immune Performed By: #### M EI, JUDY, VZI, TSPOT, MEÑO #### [facility] [address] [place], [place] [id number] Receiving Specialist: Maury Watts MD Rubella Ab, IgGon 11-25-2020 Rubella Ab, IgG 150.4 IU/mL Normal [facility] Comment on above: Result Comment: REFERENCE RANGE: <5.0 NON-REACTIVE (non-immune) 5.0 TO 9.9 EQUIVOCAL >=10.0 REACTIVE (immune) Performed By: #### M EI, JUDY, VZI, TSPOT, MEÑO #### [facility] [address] [place] [address] Receiving Specialist: Maury Watts MD Rubella antibody, IgGOrdered By: Morales Ortiz on 11-25-2020 Rubella virus IgG Ql (S) 150.4 IU/mL [facility] Phone: Comment on above: REFERENCE RANGE: <5.0 NON-REACTIVE (non-immune) 5.0 TO 9.9 EQUIVOCAL >=10.0 REACTIVE (immune) [facility] Phone: Encounters Encounter Date Encounter Type Care Provider Facility Start: 12-03-2023 End: 12-03-2023 ambulatory ANGIE VIVAR Not Available Start: 11-04-2023 End: 11-04-2023 ambulatory ANGIE VIVAR Not Available Start: 10-07-2023 End: 10-07-2023 ambulatory ANGIE VIVAR Not Available Start: 09-05-2023 End: 09-05-2023 ambulatory ANGIE VIVAR Not Available Start: 05-21-2023 End: 05-21-2023 ambulatory ANGIE VIVAR Not Available Start: 08-23-2022 End: 08-23-[address] ANGIE VIVAR . Facility:[facility] Start: 08-20-2022 Encounter for preprocedural respiratory examination DR ANGIE VIVAR . [facility] Start: 08-16-2022 End: 08-17-[address] ANGIE VIVAR . Facility:[facility] Start: 08-16-2022 End: 08-17-2022 Encounter for preprocedural respiratory examination DR ANGIE VIVAR . Facility:[facility] Start: 06-13-2022 End: 06-13-[address] ANGIE VIVAR . Facility: Start: 04-26-2022 End: 04-27-2022 ambulatory Bhavya Estrada Facility:[facility] Start: 12-22-2021 End: 12-22-2021 Departed Referred [facility] [address] Start: 07-13-2021 End: 07-13-2021 ambulatory Bhavya Estrada Facility:[facility] Start: 07-12-2021 End: 07-12-2021 ambulatory Bhavya patria Facility:[facility] Start: 11-25-2020 End: 11-26-2020 ambulatory MORALES BAKERMDSOPHIA [facility] Start: 11-25-2020 End: 11-25-2020 Subsequent hospital visit by physician [facility] Laboratory Procedures Date Procedure Procedure Detail Performing Clinician Start: 11-25-2020 Antibody rubella Omkar Ortiz MD Work Phone: Plan of Treatment Date Care Activity Detail Author Start: 03-08-2021 Influenza vaccination Flu vacc ine (Season Ended) [facility] Phone: Start: 2005 COVID-19 Vaccine (1) COVID-19 Vaccin e (1) [facility] Phone: End: 11-25-2020 Mumps Antibody, IgG Mumps Antibody, IgG Lab Routine Once for 1 Occurrences starting 11/25/2020 until 11/25/2020 [facility] Phone: Comment on above: Once for 1 Occurrenc es starting 11/25/2020 until 11/25/2020 Mumps Antibody, IgG Mumps Antibo dy, IgG Lab Routine 11/25/2020 3:18 PM EDT [facility] Phone: End: 11-25-2020 Rubeola Antibody, IgG Rubeola Antibody, IgG Lab Routine Once for 1 Occurrences starting 11/25/2020 until 11/25/2020 [facility] Phone: Comment on above: Once for 1 Occurrenc es starting 11/25/2020 until 11/25/2020 Rubeola Antibody, IgG Rubeola An tibody, IgG Lab Routine 11/25/2020 3:18 PM EDT [facility] Phone: End: 11-25-2020 Tb antigen response gamma interferon t-cell susp T-Spot TB Test Lab Routine Once for 1 Occurrences starting 11/25/2020 until 11/25/2020 [facility] Phone: Comment on above: Once for 1 Occurrenc es starting 11/25/2020 until 11/25/2020 Tb antigen response gamma interferon t-cell susp T-Spot TB Test Lab Routine 11/25/2020 3:18 PM EDT [facility] Phone: End: 11-25-2020 Varicella Zoster Antibody, IgG Varicella Zoster Antibody, IgG Lab Routine Once for 1 Occurrences starting 11/25/2020 until 11/25/2020 [facility] Phone: Comment on above: Once for 1 Occurrenc es starting 11/25/2020 until 11/25/2020 Varicella Zoster Antibody, IgG Varicella Zoster Antibody, IgG Lab Routine 11/25/2020 3:18 PM EDT [facility] Phone: Payers Date Payer Category Payer Unknown [id number] 2020 Unknown [id number] 1995 Unknown [id number] 2.16.84 [id number] 1993 Unknown [id number] 2.16.84 [id number] 1993 Unknown [id number] 2.16.84 [id number] 1993 Unknown [id number] 2.16.84 [id number] 1993 Unknown [id number] 2.16.84 [id number] 1993 Unknown [id number] 2.16.84 [id number] 1993 Unknown [id number] 2.16.84 [id number] 1993 Unknown [id number] 2.16.84 [id number] 1993 Unknown [id number] 1959 Unknown [id number] Self-pay Self Pay [id number] Social History Date Type Detail Facility Tobacco smoking stat [facility] Unknown if ever smoked [facility] Phone: Start: 1995 Sex Assigned At Not on file M [employer] Phone: Start: 1995 Sex Assigned At Female F [facility] Clinical Note 08-23-2022 Note Date & Type Note Facility 08-23-2022 Note OPERATIVE NOTE OPERATION DATE: 08/23/2022 PROCEDURE: LEEP Procedure. PREOPERATIVE DIAGNOSIS: Cervical dysplasia. POSTOPERATIVE DIAGNOSIS: Cervical dysplasia. ANESTHESIA: General. SURGEON: Angie Vivar D.O. REPAIRER HANDTOOLS: None. BLOOD LOSS: 5 mL. SPECIMEN: Ectocervical [...] to Recovery Room in stable condition. [facility] Medication management note 06-11-2022 Note Date & Type Note Facility 06-11-2022 Note Entered by Diane Wadsworth on June 11, 2022 09:44:53 EST From: Diane Wadsworth To: [facility] #[id number] Sent: 06/11/2022 09:44:53 EST Subject: Medication Management Submitted: Complete:desogestrel-ethinyl estradiol (Velivet oral tablet) Signed by Diane Wadsworth 06/11/2022 09:44:00 EST Approved desogestrel-ethinyl estradiol (VELIVET 28 DAY TABLET) take 1 tablet by mouth once daily Qty: 84 tab(s) Days Supply: 84 Refills: 0 Substitutions Allowed Route To Pharmacy - [facility] #[id number] Signed by Diane Wadsworth Patient matched by Diane Wadsworth on 06/11/2022 09:41:06 EST From: [facility] #[id number] To: Bhavya Estrada MD Sent: June 11, 2022 8:39:02 AM 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 Subject: Medication Management Due: June 12, 2022 12:05:33 AM 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 Pending Signature Drug: desogestrel-ethinyl estradiol (Velivet oral tablet), take 1 tablet by mouth once daily Quantity: 84 tab(s) Days Supply: 84 Refills: 1 Substitutions Allowed Notes from Pharmacy: Dispensed Drug: desogestrel-ethinyl estradiol (Velivet oral tablet), take 1 tablet by mouth once daily Quantity: 84 tab(s) Days Supply: 84 Refills: 0 Substitutions Allowed Notes from Pharmacy: [facility] Evaluation note Note Date & Type Note Facility Evaluation note No assessment information availa [facility] Work Phone: Summary Purpose Family History [...] section and content) DATE CREATED AUTHOR 12/02/2020 [facility] DATE CREATED AUTHOR AUTHOR'S ORGANIZ ATION 12/23/2021 [facility] DATE CREATED AUTHOR AUTHOR'S ORGANIZ ATION 06/11/[address] [facility] DATE CREATED AUTHOR AUTHOR'S ORGANIZ ATION 09/05/2022 [facility] DATE CREATED AUTHOR AUTHOR'S ORGANIZ ATION 12/04/2023 [facility] EPIC Care Teams (unrecognized sec [...] BE BASED ON THE PRIMARY CLINICAL RECORDS. [facility]. provides no warranty or guarantee of the accuracy or completeness of information in this document.
[2023-12-27 13:29] LABS: Basophils Absolute Auto 0.1 10^3/uL (0.0-0.1); Basophils Percent Auto 0.5 % (0.2-2.0); Eosinophils Absolute Auto 0.4 10^3/uL (0.0-0.7); Eosinophils Percent Auto 3.3 % (0.9-7.0); Hematocrit 35.9 % (36.0-48.0); Hemoglobin 12.2 g/dL (12.0-16.0); Immature Granulocytes Pct Auto 3.3 % (0.0-0.5); Lymphocytes Absolute Auto 2.1 10^3/uL (1.2-3.8); Lymphocytes Percent Auto 16.8 % (20.5-60.0); Mean Corpuscular Hemoglobin 31.8 pg (26.7-34.0); Mean Corpuscular Volume 93.5 fL (81.0-99.0); Mean Platelet Volume 10.9 fL (9.5-13.5); Monocytes Absolute Auto 0.9 10^3/uL (0.3-0.8); Monocytes Percent Auto 7.1 % (1.7-12.0); Neutrophils Absolute Auto 8.5 10^3/uL (1.4-6.5); Platelet Count 191 10^3/uL (150-450); Red Blood Count 3.84 10^6/uL (4.20-5.40); Red Cell Distribution Width 13.1 % (11.0-15.0); White Blood Count 12.3 10^3/uL (4.0-11.0)
[2023-12-27 14:49] LABS: Glucose 1 Hour 152 mg/dL (<130)
== END 2023-12-27 12:05 | disposition home or self-care (01) ==
LOC: LAB 12:05
PROVIDERS: Visit Provider Obstetrics & Gynecology
DX: Z13.1 Encounter for screening for diabetes mellitus (principal)
CPT/HCPCS: 36415; 82950; 85025

== ENCOUNTER 2023-12-31 10:04 | Outpatient (OUT) | payer BC, SELFPAY ==
--- NOTE | 2023-12-31 10:07 | US_ITS ---
[address] [address] Patient Name: MARISA ADAN MRN: [id number] date: 1995 Sex: F Assigned Patient Location: [facility] Current Patient Location: [facility] Accession/Order Number: [id number] Exam Date: 12/31/2023 10:08 Report Date: 12/31/2023 10:51 At the request of: ANGIE TERAN Procedure: US OB cervical length EXAMINATION: US OB cervical length, US OB placenta HISTORY: CERVICAL LENGTH COMPARISON: 12/03/2023 FINDINGS: position: Cephalic Placenta: Posterior. No intraplacental or retroplacental echogenic abnormality. The placental edge is 2.8 cm from the internal os Cervix: Closed, 5.2 cm Clinical age: 25 weeks 4 days Clinical RUKHSANA: 04/10/2024 US/US OB cervical length IMPRESSION: The placental edge is 2.8 cm from the internal cervical os Closed cervix measuring 5.2 cm in length Electronically authenticated by: OMID DOSS Date: 12/31/2023 10:51
--- NOTE | 2023-12-31 10:07 | US_ITS ---
[address] [address] Patient Name: MARISA ADAN MRN: [id number] date: 1995 Sex: F Assigned Patient Location: [facility] Current Patient Location: [facility] Accession/Order Number: [id number] Exam Date: 12/31/2023 10:08 Report Date: 12/31/2023 10:51 At the request of: ANGIE TERAN Procedure: US OB placenta EXAMINATION: US OB cervical length, US OB placenta HISTORY: CERVICAL LENGTH COMPARISON: 12/03/2023 FINDINGS: position: Cephalic Placenta: Posterior. No intraplacental or retroplacental echogenic abnormality. The placental edge is 2.8 cm from the internal os Cervix: Closed, 5.2 cm Clinical age: 25 weeks 4 days Clinical RUKHSANA: 04/10/2024 US/US OB placenta IMPRESSION: The placental edge is 2.8 cm from the internal cervical os Closed cervix measuring 5.2 cm in length Electronically authenticated by: OMID DOSS Date: 12/31/2023 10:51
--- OUTSIDE RECORDS SUMMARY | 2023-12-31 10:10 | XMS_ITS | CCD ---
Author Organization [facility] Care Team Providers Care Fine Unhairer Name Role Phone Unavailable Primary Care Provider UnavailMORALES Renner Referring Unavailable NON STAFF Primary Care Provider UnavailDO Dom Cerda Jr Attending Provider Bhavya Estrada Primary Care Unavailable Bhavya Estrada Primary Care Unavailable Bhavya Estrada Attending Unavailable Bhavya Estrada Primary Care Unavailable JEFFRY ., DR ADAMS Admitting Unavailable JEFFYR ., DR ADAMS Attending Unavailable JEFFRY ., [...] (2 sources) Amoxicillin; Translations: [amoxicillin] Drug Allergy [facility] Repository (1 source) tiZANidine; Translations: [tiZANidine] Drug Allergy [facility] Repository Problems Problem Classification Problem [...] BASO # 0.1 103/ul Normal 0.0-0.1 [facility] Comment on above: Performed By: #### C BC #### [facility] [address] [place] [address] Dr. Car Lozada Basophils/100 WBC (Bld) 0.5 % Normal 0.2-2.0 [facility] Comment on above: Performed By: #### C BC #### [facility] [address] [place] [address] Dr. Car Lozada EO # 0.6 103/ul Normal 0.0-0.7 [facility] Comment on above: Performed By: #### C BC #### [facility] [address] [place] [address] Dr. Car Lozada Eosinophils/100 WBC (Bld) 5.9 % Normal 0.9-7.0 [facility] Comment on above: Performed By: #### C BC #### [facility] [address] [place] [address] Dr. Car Lozada Erythrocyte distribution width (RBC) [Ratio] 12.6 % Normal 11.0-15.0 [facility] Comment on above: Performed By: #### C BC #### [facility] [address] [place] [address] Dr. Car Lozada Hematocrit (Bld) [Volume fraction] 42.0 % Normal 36.0-48.0 [facility] Comment on above: Performed By: #### C BC #### [facility] [address] [place] [address] Dr. Car Lozada Hemoglobin (Bld) [Mass/Vol] 14.1 g/dL Normal 12.0-16.0 [facility] Comment on above: Performed By: #### C BC #### [facility] [address] [place] [address] Dr. Car Lozada IG # 0.04 10e3/ul Critically high 0.00-0.03 [facility] Comment on above: Performed By: #### C BC #### [facility] [address] [place] [address] Dr. Car Lozada IG % 0.4 % Normal 0.0-0.5 [facility] Comment on above: Performed By: #### C BC #### [facility] [address] [place] [address] Dr. Car Lozada LYMPH # 3.6 103/ul Normal 1.2-3.8 [facility] Comment on above: Performed By: #### C BC #### [facility] [address] [place] [address] Dr. Car Lozada Lymphocytes/100 WBC (Bld) 34.7 % Normal 20.5-60.0 [facility] Comment on above: Performed By: #### C BC #### [facility] [address] [place] [address] Dr. Car Lozada MANUAL DIFF REQ NO Normal [facility] Comment on above: Performed By: #### C BC #### [facility] [address] [place] [address] Dr. Car Lozada MCH (RBC) [Entitic mass] 31.2 pg Normal 26.7-34.0 [facility] Comment on above: Performed By: #### C BC #### [facility] [address] [place] [address] Dr. Car Lozada MCHC (RBC) [Mass/Vol] 33.6 g/dL Normal 29.9-35.2 [facility] Comment on above: Performed By: #### C BC #### [facility] [address] [place] [address] Dr. Car Lzoada MCV (RBC) [Entitic vol] 92.9 fL Normal 81.0-99.0 [facility] Comment on above: Performed By: #### C BC #### [facility] [address] [address] [address] Car Lozada MONO # 0.9 103/ul Critically high 0.3-0.8 [facility] Comment on above: Performed By: #### C BC #### [facility] [address] [address] [address] Car Lozada Monocytes/100 WBC (Bld) 8.3 % Normal 1.7-12.0 [facility] Comment on above: Performed By: #### C BC #### [facility] [address] [address] [address] Car Lozada NEUT # 5.2 103/ul Normal 1.4-6.5 [facility] Comment on above: Performed By: #### C BC #### [facility] [address] [place] [address] Dr. Car Lozada Neutrophils/100 WBC (Bld) 50.2 % Normal 43.0-75.0 [facility] Comment on above: Performed By: #### C BC #### [facility] [address] [address] [address] Car Lozada Platelet mean volume (Bld) [Entitic vol] 10.0 fL Normal 9.5-13.5 [facility] Comment on above: Performed By: #### C BC #### [facility] [address] [place] [address] Dr. Car Lozada PLT 251 103/ul Normal 150-450 [facility] Comment on above: Performed By: #### C BC #### [facility] [address] [place] [address] Dr. Car Lozada RBC 4.52 106/ul Normal 4.20-5.40 [facility] Comment on above: Performed By: #### C BC #### [facility] [address] [address] [address] Car Lozada WBC 10.3 103/ul Normal 4.0-11.0 [facility] Comment on above: Performed By: #### C BC #### [facility] [address] [address] [address] Car Lozada PREG QUANT HCGon 08-23-2022 HCG QUANT <1 Normal [facility] Comment on above: Performed By: #### P REGQNT #### [facility] [address] [address] [address] Car Lozada HCG RANGE SEE BELOW Normal [facility] Comment on above: Result Comment: 5-50 0.2-1 WEEK 50-500 1-2 WEEKS 100-5,000 2-3 WEEKS 500-10,000 3-4 WEEKS 1,000-50,000 4-5 WEEKS 10,000-100,000 5-6 WEEKS 15,000-200,000 6-8 WEEKS 10,000-100,000 2-3 MONTHS Performed By: #### P REGQNT #### [facility] [address] [address] [address] Car Lozada XR CHEST 2 Von [...] MIGUEL LIMON Date: 2022-08-16 10:17 Normal [facility] PAP ACOG PANEL 2: 19 to 27on 06-25-2022 . . Normal [facility] Comment on above: Performed By: #### 4 [id number] #### [facility] [address] [address] [address] Car Lozada Age Gdln ACOG Testing 19- Normal [facility] Comment on above: Performed By: #### [id number] #### [facility] [address] [address] [address] Car Lozada DIAGNOSIS: Comment Abnormal [facility] Comment on above: Result Comment: EPIT HELIAL CELL ABNORMALITY. LOW GRADE SQUAMOUS INTRAEPITHELIAL LESION (LSIL). Performed By: #### [id number] #### [facility] [address] [address] [address] Car Lozada Electronically signed by: Comment Normal [facility] Comment on above: Result Comment: Phyllis Vital MD, Pathologist Performed By: #### 4 [id number] #### [facility] [address] [address] [address] Car Lozada Methodology: Comment Normal [facility] Comment on above: Result Comment: This liquid based ThinPrep(R) pap test was screened with the use of an image guided system. Performed By: #### 4 [id number] #### [facility] [address] [place] [address] Dr. Car Lozada Note: Comment Normal [facility] Comment on above: Result Comment: The Pap smear is a screening test designed to aid in the detection of premalignant and malignant conditions of the uterine cervix. It is not a diagnostic procedure and should not be used as the sole means of detecting cervical cancer. Both false-positive and false-negative reports do occur. . Performed By: #### 4 [id number] #### [facility] [address] [place] [address] Dr. Car Lozada Pathologist Provided ICD10 Comment Normal [facility] Comment on above: Result Comment: [id number]. [id number] Performed By: #### 4 [id number] #### [facility] [address] [place] [address] Dr. Car Lozada Performed by: Comment Normal [facility] Comment on above: Result Comment: Sidney Masters, Machine Worker (ASCP) Performed By: #### 4 [id number] #### [facility] [address] [address] [address] Car Lozada Recommendation: Comment Abnormal [facility] Comment on above: Result Comment: Sugg est follow up as clinically appropriate. Performed By: #### 4 [id number] #### [facility] [address] [address] [address] Car Lozada Reflex Criteria: Comment Normal [facility] Comment on above: Result Comment: The HPV DNA reflex criteria were not met with this specimen result therefore, no HPV testing was performed. . Performed By: #### 4 [id number] #### [facility] [address] [address] [address] Car Lozada Specimen adequacy: Comment Normal [facility] Comment on above: Result Comment: Sati sfactory for evaluation. Endocervical and/or squamous metaplastic cells (endocervical component) are present. Performed By: #### 4 [id number] #### [facility] [address] [address] [address] Car Lozada Body fluid albumin measureme nt (mass/volume)Ordered By: Dom Paulino on 12-22-2021 Albumin (Body fld) [Mass/Vol] 3.4 g/dL 3.2-5.5 [facility] Cholesterol [Mass/volume] in Serum or PlasmaOrdered By: Dom Paulino on 12-22-2021 Cholesterol [Mass/Vol] 228 mg/dL 140-200 [facility] Comment on above: Chol less than 200 m g/dl low risk Chol 201-239 mg/dl borderline risk Chol 240 mg/dl and greater high risk Cholesterol in LDL Calc [Mas s/Vol]Ordered By: Dom Paulino on 12-22-2021 Cholesterol in LDL [Mass/Vol] 136 mg/dL 0-100 [facility] Comment on above: LDL ATP III CLASSIFI CATION LDL less than 100 mg/dL Optimal LDL 100-129 mg/dL Near or above optimal LDL 130-159 mg/dL Borderline high LDL 160-189 mg/dL High LDL greater than 189 mg/dL Very high Cholesterol in VLDL Calc [Ma ss/Vol]Ordered By: Dom Paulino on 12-22-2021 Cholesterol in VLDL [Mass/Vol] 19 mg/dL [facility] Comprehensive Metabolic Empo n 12-22-2021 Albumin [Mass/Vol] 3.4 g/dL Normal 3.2-5.5 [facility] Comment on above: Performed By: #### E BS CMP, EBS LIPID #### [facility] [address] Albumin/Globulin [Mass ratio] 1.2 {ratio} Normal [facility] Comment on above: Performed By: #### E BS CMP, EBS LIPID #### [facility] [address] [id number] [place] ALP [Catalytic activity/Vol] 48 U/L Normal 32-92 [facility] Comment on above: Performed By: #### E BS CMP, EBS LIPID #### [facility] [address] [place] [address] [place] ALT [Catalytic activity/Vol] 14 U/L Normal 10-60 [facility] Comment on above: Performed By: #### E BS CMP, EBS LIPID #### [facility] [address] [id number] [place] AST [Catalytic activity/Vol] 15 U/L Normal 10-42 [facility] Comment on above: Performed By: #### E BS CMP, EBS LIPID #### [facility] [address] [id number] [place] Bilirubin [Mass/Vol] 0.3 mg/dL Normal 0.3-1.2 [facility] Comment on above: Performed By: #### E BS CMP, EBS LIPID #### [facility] [address] [id number] [place] Calcium [Mass/Vol] 9.3 mg/dL Normal 8.2-10.2 [facility] Comment on above: Performed By: #### E BS CMP, EBS LIPID #### [facility] [address] [id number] [place] Chloride [Moles/Vol] 101 mmol/L Normal 95-114 [facility] Comment on above: Performed By: #### E BS CMP, EBS LIPID #### [facility] [address] [id number] [place] CO2 [Moles/Vol] 23.8 mmol/L Normal 22.0-30.0 [facility] Comment on above: Performed By: #### E BS CMP, EBS LIPID #### [facility] [address] [phone] [place] Creatinine [Mass/Vol] 0.79 mg/dL Normal 0.44-1.03 [facility] Comment on above: Performed By: #### E BS CMP, EBS LIPID #### [facility] [address] [place] [address] [place] Estimated GFR ( Aleena > 60 Normal [facility] Comment on above: Result Comment: GFR estimated reference range: According to KDOQI guidelines, <60 ml/min/1.73m2 is sufficient to diagnose a patient with chronic kidney disease. Performed By: #### E BS CMP, EBS LIPID #### [facility] [address] Estimated GFR (Non- Am > 60 [facility] Comment on above: Performed By: #### E BS CMP, EBS LIPID #### [facility] [address] Globulin (S) [Mass/Vol] 2.8 g/dL Normal [facility] Comment on above: Performed By: #### E BS CMP, EBS LIPID #### [facility] [address] Glucose [Mass/Vol] 76 mg/dL Normal 70-100 [facility] Comment on above: Performed By: #### E BS CMP, EBS LIPID #### [address] Potassium [Moles/Vol] 3.8 mmol/L Normal 3.5-5.1 [facility] Comment on above: Performed By: #### E BS CMP, EBS LIPID #### [facility] [address] Protein [Mass/Vol] 6.2 g/dL Normal 6.1-7.9 [facility] Comment on above: Performed By: #### E BS CMP, EBS LIPID #### [facility] [address] [place] [address] [place] Sodium [Moles/Vol] 136 mmol/L Normal 136-146 [facility] Comment on above: Performed By: #### E BS CMP, EBS LIPID #### [facility] [address] Urea nitrogen [Mass/Vol] 10 mg/dL Normal 9-23 [facility] Comment on above: Performed By: #### E BS CMP, EBS LIPID #### [facility] [address] Creatinine and Glomerular fi ltration rate.predicted panel (S/P/Bld)Ordered By: Dom Paulino on 12-22-2021 Creatinine [Mass/Vol] 0.79 mg/dL 0.44-1.03 [facility] Estimated glomerular filtrat ion rate (GFR) non- AmericanOrdered By: Dom Paulino on 12-22-2021 GFR/1.73 sq M.predicted among non-blacks MDRD (S/P/Bld) [Vol rate/Area] > 60 mL/Min [facility] Globulin Calc (S) [Mass/Vol] Ordered By: Dom Paulino on 12-22-2021 Globulin (S) [Mass/Vol] 2.8 g/dL [facility] - Chemistry and C hemistry - challengeOrdered By: Dom Paulino on 12-22-2021 Glucose [Mass/Vol] 76 mg/dL 70-100 [facility] Lipid Profileon 12-22-2021 Cholesterol [Mass/Vol] 228 mg/dL High 140-200 [facility] Comment on above: Result Comment: Chol less than 200 mg/dl low risk Chol 201-239 mg/dl borderline risk Chol 240 mg/dl and greater high risk Performed By: #### E SUSHIL CMP, EBS LIPID #### [facility] [address] Cholesterol in HDL [Mass/Vol] 73 mg/dL Normal 35-85 [facility] Comment on above: Result Comment: HDL CHOL ATP-III CLASSIFICATION Cardiovascular Risk HDL > or equal to 60 mg/dL LOW HDL < 40 mg/dL HIGH Performed By: #### E BS CMP, EBS LIPID #### [facility] [address] Cholesterol.total/Janey sterol in HDL [Mass ratio] 3.1 {ratio} Normal <5.0 [facility] Comment on above: Result Comment: PERF ORMED BY: [facility] [address] [place] [address] PATHOLOGIST VITICULTURE TEACHER DENYS WOO M.D. Performed By: #### E BS CMP, EBS LIPID #### [facility] [address] LDL Cholesterol,Calculated 136 mg/dL High 0-100 [facility] Comment on above: Result Comment: LDL ATP III CLASSIFICATION LDL less than 100 mg/dL Optimal LDL 100-129 mg/dL Near or above optimal LDL 130-159 mg/dL Borderline high LDL 160-189 mg/dL High LDL greater than 189 mg/dL Very high Performed By: #### E BS CMP, EBS LIPID #### [facility] [address] Triglyceride w/Reflex 95 mg/dL Normal 35-149 [facility] Comment on above: Result Comment: TRIG ATP III CLASSIFICATION TRIG less than 150 mg/dL Normal TRIG 150-199 mg/dL Borderline high TRIG 200-500 mg/dL High TRIG greater than 500 mg/dL Very high Standard traceable to the Center for Disease Conrtrol and Prevention (CDC) test method. Performed By: #### E BS CMP, EBS LIPID #### [facility] [address] VLDL CHOLESTEROL 19 mg/dL Normal [facility] Comment on above: Performed By: #### E BS CMP, EBS LIPID #### [facility] [address] No Panel InformationOrdered By: Dom Paulino on 12-22-2021 Estimated GFR () > 60 mL/Min [facility] Comment on above: GFR estimated refere nce range: According to KDOQI guidelines, <60 ml/min/1.73m2 is sufficient to diagnose a patient with chronic kidney disease. Pharmacy Creatinine Clearance (Chem N/A [facility] Triglycerides Reflex 95 mg/dL 35-149 [facility] Comment on above: TRIG ATP III CLASSIF ICATION TRIG less than 150 mg/dL Normal TRIG 150-199 mg/dL Borderline high TRIG 200-500 mg/dL High TRIG greater than 500 mg/dL Very high Standard traceable to the Center for Disease Conrtrol and Prevention (CDC) test method. Protein [Mass/volume] in Ser um or PlasmaOrdered By: Dom Paulino on 12-22-2021 Protein [Mass/Vol] 6.2 g/dL 6.1-7.9 [facility] Serum or plasma alanine pan otransferase measurement without P-5'-P (enzymatic activiOrdered By: Dom Paulino on 12-22-2021 ALT No additional P-5'-P [Catalytic activity/Vol] 14 U/L 10-60 [facility] Serum or plasma albumin/glob ulin mass ratioOrdered By: Dom Paulino on 12-22-2021 Albumin/Globulin [Mass ratio] 1.2 {ratio} [facility] Serum or plasma alkaline nina sphatase measurement (enzymatic activity/volume)Ordered By: Dom Paulino on 12-22-2021 ALP [Catalytic activity/Vol] 48 U/L 32-92 [facility] Serum or plasma aspartate am inotransferase measurement (enzymatic activity/volume)Ordered By: Dom Paulino on 12-22-2021 AST [Catalytic activity/Vol] 15 U/L 10-42 [facility] Serum or plasma calcium dexter urement (mass/volume)Ordered By: Dom Paulino on 12-22-2021 Calcium [Mass/Vol] 9.3 mg/dL 8.2-10.2 [facility] Serum or plasma chloride glenis surement (moles/volume)Ordered By: Dom Paulino on 12-22-2021 Chloride [Moles/Vol] 101 mmol/L 95-114 [facility] Serum or plasma high density lipoprotein (HDL) cholesterol measurementOrdered By: Dom Paulino on 12-22-2021 Cholesterol in HDL [Mass/Vol] 73 mg/dL 35-85 [facility] Comment on above: HDL CHOL ATP-III CLA SSIFICATION Cardiovascular Risk HDL > or equal to 60 mg/dL LOW HDL < 40 mg/dL HIGH Serum or plasma potassium me asurement (moles/volume)Ordered By: Dom Paulino on 12-22-2021 Potassium [Moles/Vol] 3.8 mmol/L 3.5-5.1 [facility] Serum or plasma sodium measu rement (moles/volume)Ordered By: Dom Paulino on 12-22-2021 Sodium [Moles/Vol] 136 mmol/L 136-146 [facility] Serum or plasma total biliru bin measurement (mass/volume)Ordered By: Dom Paulino on 12-22-2021 Bilirubin [Mass/Vol] 0.3 mg/dL 0.3-1.2 [facility] Serum or plasma total carbon dioxide measurement (moles/volume)Ordered By: Dom Paulino on 12-22-2021 CO2 [Moles/Vol] 23.8 mmol/L 22.0-30.0 [facility] Serum or plasma total choles terol/high density lipoprotein (HDL) cholesterol mass ratOrdered By: Dom Paulino on 12-22-2021 Cholesterol.total/Janey sterol in HDL [Mass ratio] 3.1 {ratio} [facility] Serum or plasma urea nitroge n measurement (mass/volume)Ordered By: Dom Paulino on 12-22-2021 Urea nitrogen [Mass/Vol] 10 mg/dL 9-23 [facility] Outside Recordson 09-13-2021 Outside Records [id number][facility] Outside Records [id number] [facility] [id number] #1.00[facility] Consent Formson 07-14-2021 Consent Forms [id number] #1.00[facility] Progress Note - Nurseon Progress Note - Nurse Antigen test ordered, test resulted positive, patient informed of positive result. In house test ordered, patient informed and swabbed, specimen sent to lab. [Electronically Signed on: 07/11/2021 16:04 EST] Kamini Tovar RN [Verified on: 07/11/2021 16:04 EST] Kamini Tovar RN Normal [facility] Progress Note - Nurse Antigen test ordered, test resulted negative, patient informed of negative result. [Electronically Signed on: 07/11/2021 11:45 EST] Kamini Tovar RN [Verified on: 07/11/2021 11:45 EST] Kamini Tovar RN [facility] Measles (Rubeola) Imon 11-28 Measles (Rubeola) Im 3.49 Normal >1.09 [facility] Comment on above: Result Comment: Interpretation: IMMUNE Reference Range: <0.91 Not Immune 0.91-1.09 Equivocal >1.09 Immune Performed By: #### M EI, JUDY, VZI, TSPOT, MEÑO #### [address] [address] Warehouse Order Filler: Maury Watts MD Mumps,Immun,Abon 11-28-2020 Mumps,Immun,Ab 1.48 Normal >1.09 [facility] Comment on above: Result Comment: Interpretation: IMMUNE Reference Range: <0.91 Not Immune 0.91-1.09 Equivocal >1.09 Immune Performed By: #### M EI, JUDY, VZI, TSPOT, MEÑO #### [address] [place] [id number] Warehouse Order Filler: Maury Watts MD T-Spoton 11-28-2020 T-Spot. TB Test Normal [facility] Comment on above: Result Comment: [place] [address] [place] [id number] (NOTE) T-SPOT.TB Test Results --------- T-SPOT TB [...] M EI, JUDY, VZI, TSPOT, MEÑO #### [facility] [address] [place] [address] Warehouse Order Filler: Maury Watts MD VZ Immunityon 11-28-2020 VZ Immunity 2.04 Normal >1.09 [facility] Comment on above: Result Comment: Interpretation: IMMUNE Reference Range: <0.91 Not Immune 0.91-1.09 Equivocal >1.09 Immune Performed By: #### M EI, JUDY, VZI, TSPOT, MEÑO #### [facility] [address] [place], [place] [id number] Warehouse Order Filler: Maury Watts MD Rubella Ab, IgGon 11-25-2020 Rubella Ab, IgG 150.4 IU/mL Normal [facility] Comment on above: Result Comment: REFERENCE RANGE: <5.0 NON-REACTIVE (non-immune) 5.0 TO 9.9 EQUIVOCAL >=10.0 REACTIVE (immune) Performed By: #### M EI, JUDY, VZI, TSPOT, MEÑO #### [employer] [address] [place] [address] Warehouse Order Filler: Maury Watts MD Rubella antibody, IgGOrdered By: Morales Ortiz on 11-25-2020 Rubella virus IgG Ql (S) 150.4 IU/mL [employer] Phone: Comment on above: REFERENCE RANGE: <5.0 NON-REACTIVE (non-immune) 5.0 TO 9.9 EQUIVOCAL >=10.0 REACTIVE (immune) [employer] Phone: Encounters Encounter Date Encounter Type Care [...] respiratory examination DR ANGIE VIVAR . [facility] Start: 08-16-2022 End: 08-17-[address] ANGIE VIVAR . Facility:[facility] Start: 08-16-2022 End: 08-17-2022 Encounter for preprocedural respiratory examination DR ANGIE VIVAR . Facility:[facility] Start: 06-13-2022 End: 06-13-[address] ANGIE VIVAR . Facility: Start: 04-26-2022 End: 04-27-2022 ambulatory Bhavya Estrada [facility] Start: 12-22-2021 End: 12-22-2021 Departed Referred [facility] [address] Start: 07-13-2021 End: 07-13-2021 ambulatory Bhavya Estrada Facility:[facility] Start: 07-12-2021 End: 07-12-2021 ambulatory Bhavya patria Facility:[facility] Start: 11-25-2020 End: 11-26-2020 ambulatory MORALES BAKERILSOPHIA [facility] Start: 11-25-2020 End: 11-25-2020 Subsequent hospital visit by physician [facility] Laboratory Procedures Date Procedure Procedure Detail Performing Clinician Start: 11-25-2020 Antibody rubella Omkar Ortiz MD Work Phone: Plan of Treatment Date Care Activity Detail Author Start: 03-08-2021 Influenza vaccination Flu vacc ine (Season Ended) [facility] Phone: Start: 2005 COVID-19 Vaccine (1) COVID-19 Vaccin e (1) [facility] Phone: End: 11-25-2020 Mumps Antibody, IgG Mumps Antibody, IgG Lab Routine Once for 1 Occurrences starting 11/25/2020 until 11/25/2020 [employer] Phone: Comment on above: Once for 1 Occurrenc es starting 11/25/2020 until 11/25/2020 Mumps Antibody, IgG Mumps Antibo dy, IgG Lab Routine 11/25/2020 3:18 PM EDT [facility] Phone: End: 11-25-2020 Rubeola Antibody, IgG Rubeola Antibody, IgG Lab Routine Once for 1 Occurrences starting 11/25/2020 until 11/25/2020 [facility] Phone: Comment on above: Once for 1 Occurrenc es starting 11/25/2020 until 11/25/2020 Rubeola Antibody, IgG Rubeola An tibody, IgG Lab Routine 11/25/2020 3:18 PM EDT [facility] Phone: End: 11-25-2020 Tb antigen response gamma interferon t-cell susp T-Spot TB Test Lab Routine Once for 1 Occurrences starting 11/25/2020 until 11/25/2020 [facility] Phone: Comment on above: Once for 1 Occurrenc es starting 11/25/2020 until 11/25/2020 Tb antigen response gamma interferon t-cell susp T-Spot TB Test Lab Routine 11/25/2020 3:18 PM EDT [facility] Phone: End: 11-25-2020 Varicella Zoster Antibody, IgG Varicella Zoster Antibody, IgG Lab Routine Once for 1 Occurrences starting 11/25/2020 until 11/25/2020 [facility] Phone: Comment on above: Once for 1 Occurrenc es starting 11/25/2020 until 11/25/2020 Varicella Zoster Antibody, IgG Varicella Zoster Antibody, IgG Lab Routine 11/25/2020 3:18 PM EDT [facility] Phone: Payers Date Payer Category Payer Unknown [id number] 2020 Unknown [id number] 1993 Unknown [id number] 2.16.84 [id number] 1993 Unknown [id number] 2.16.84 [id number] 1993 Unknown [id number] 2.16.84 [id number] 1993 Unknown [id number] 2.16.84 [id number] 1993 Unknown [id number] 2.16.84 [id number] 1993 Unknown [id number] 2.16.84 [id number] 1993 Unknown [id number] 2.16.84 [id number] 1993 Unknown [id number] 2.16.84 [id number] 1993 Unknown [id number]. [id number] 1959 Unknown [id number] Self-pay Self Pay [id number] Social History Date Type Detail Facility Tobacco smoking stat [facility] Unknown if ever smoked [employer] Phone: Start: 1995 Sex Assigned At Not on file [facility] [employer] Phone: Start: 1995 Sex Assigned At Female F [facility] Clinical Note 08-23-2022 Note Date & Type Note Facility 08-23-2022 Note OPERATIVE NOTE OPERATION DATE: 08/23/2022 PROCEDURE: LEEP Procedure. PREOPERATIVE DIAGNOSIS: Cervical dysplasia. POSTOPERATIVE DIAGNOSIS: Cervical dysplasia. ANESTHESIA: General. SURGEON: Angie Vivar D.O. AVIONICS INSTALLER: None. BLOOD LOSS: 5 mL. SPECIMEN: Ectocervical [...] to Recovery Room in stable condition. [facility] Medication management note 06-11-2022 Note Date & Type Note Facility 06-11-2022 Note Entered by Diane Wadsworth on June 11, 2022 09:44:53 EST From: Diane Wadsworth To: [id number] Sent: 06/11/2022 09:44:53 EST Subject: Medication Management Submitted: Complete:desogestrel-ethinyl estradiol (Velivet oral tablet) Signed by Diane Wadsworth 06/11/2022 09:44:00 EST Approved desogestrel-ethinyl estradiol (VELIVET 28 DAY TABLET) take 1 tablet by mouth once daily Qty: 84 tab(s) Days Supply: 84 Refills: 0 Substitutions Allowed Route To Pharmacy - [id number] Signed by Diane Wadsworth Patient matched by Diane Wadsworth on 06/11/2022 09:41:06 EST From: [id number] To: Bhavya Estrada MD Sent: June 11, 2022 8:39:02 AM SPOOL TENDER Subject: Medication Management Due: June 12, 2022 12:05:33 AM SPOOL TENDER On Hold Pending Signature Drug: desogestrel-ethinyl estradiol (Velivet oral tablet), take 1 tablet by mouth once daily Quantity: 84 tab(s) Days Supply: 84 Refills: 1 Substitutions Allowed Notes from Pharmacy: Dispensed Drug: desogestrel-ethinyl estradiol (Velivet oral tablet), take 1 tablet by mouth once daily Quantity: 84 tab(s) Days Supply: 84 Refills: 0 Substitutions Allowed Notes from Pharmacy: [facility] Evaluation note Note Date & Type Note Facility Evaluation note No assessment information availa [facility] Work Phone: Summary Purpose Family History [...] section and content) DATE CREATED AUTHOR 12/02/2020 [facility] DATE CREATED AUTHOR AUTHOR'S ORGANIZ ATION 12/23/2021 [facility] DATE CREATED AUTHOR AUTHOR'S ORGANIZ ATION 06/11/2022 [facility] DATE CREATED AUTHOR AUTHOR'S ORGANIZ ATION 09/05/2022 [facility] DATE CREATED AUTHOR AUTHOR'S ORGANIZ ATION 12/04/2023 [facility] [employer] Care Teams (unrecognized sec [...] BE BASED ON THE PRIMARY CLINICAL RECORDS. [facility] [employer] [facility]. provides no warranty or guarantee of the accuracy or completeness of information in this document.
== END 2023-12-31 10:05 | disposition home or self-care (01) ==
LOC: NOMS 10:05
PROVIDERS: Visit Provider Obstetrics & Gynecology
DX: O44.40 Low lying placenta NOS or without hemorrhage, unspecified trimester (principal); Z3A.25 25 weeks gestation of pregnancy
CPT/HCPCS: 76815; 76817

== ENCOUNTER 2024-01-08 08:37 | Outpatient (OUT) | payer BC, SELFPAY ==
--- OUTSIDE RECORDS SUMMARY | 2024-01-08 08:41 | XMS_ITS | CCD ---
Author Organization [facility] Care Team Providers Care Material Worker Name Role Phone Unavailable Primary Care Provider UnavailMORALES Renner Referring Unavailable NON STAFF Primary Care Provider UnavailDO Dom Cerda Jr Attending Provider [phone] Bhavya Estrada Primary Care Unavailable Bhavya Estrada [...] Unavailable JEFFRY ., DR ADAMS Admitting Unavailable JEFFRY, ANGIE Attending Unavailable JEFFRY, ANGIE Attending Unavailable ANGIE VIVAR Attending Unavailable JEFFRYANGIE Attending Unavailable JEFFRY, ANGIE Attending Unavailable Allergies Allergy Classification Reported Allergen(s) Allergy Type Date of Onset Reaction(s) Facility (2 sources) Amoxicillin; Translations: [amoxicillin] Drug Allergy [facility] Hospital Repository (1 source) tiZANidine; Translations: [tiZANidine] Drug Allergy [facility] Hospital Repository Problems Problem Classification Problem Date [...] BASO # 0.1 103/ul Normal 0.0-0.1 [facility] Comment on above: Performed By: #### C BC #### [facility] [address] [place] [address] Dr. Car Lozada Basophils/100 WBC (Bld) 0.5 % Normal 0.2-2.0 [facility] Comment on above: Performed By: #### C BC #### [facility] [address] [place] [address] Dr. Car Lozada EO # 0.6 103/ul Normal 0.0-0.7 [facility] Comment on above: Performed By: #### C BC #### [facility] [address] [place] [address] Dr. Car Lozada Eosinophils/100 WBC (Bld) 5.9 % Normal 0.9-7.0 [facility] Comment on above: Performed By: #### C BC #### [facility] [address] [place] [address] Dr. Car Lozada Erythrocyte distribution width (RBC) [Ratio] 12.6 % Normal 11.0-15.0 [facility] Comment on above: Performed By: #### C BC #### [facility] [address] [place] [address] Dr. Car Lozada Hematocrit (Bld) [Volume fraction] 42.0 % Normal 36.0-48.0 [facility] Comment on above: Performed By: #### C BC #### [facility] [address] [place] [address] Dr. Car Lozada Hemoglobin (Bld) [Mass/Vol] 14.1 g/dL Normal 12.0-16.0 [facility] Comment on above: Performed By: #### C BC #### [facility] [address] [place] [address] Dr. Car Lozada IG # 0.04 10e3/ul Critically high 0.00-0.03 [facility] Comment on above: Performed By: #### C BC #### [facility] [address] [place] [address] Dr. Car Lozada IG % 0.4 % Normal 0.0-0.5 [facility] Comment on above: Performed By: #### C BC #### [facility] [address] [place] [address] Dr. Car Lozada LYMPH # 3.6 103/ul Normal 1.2-3.8 [facility] Comment on above: Performed By: #### C BC #### [facility] [address] [place] [address] Dr. Car Lozada Lymphocytes/100 WBC (Bld) 34.7 % Normal 20.5-60.0 [facility] Comment on above: Performed By: #### C BC #### [facility] [address] [place] [address] Dr. Car Lozada MANUAL DIFF REQ NO Normal [facility] Comment on above: Performed By: #### C BC #### [facility] [address] [place] [address] Dr. Car Lozada MCH (RBC) [Entitic mass] 31.2 pg Normal 26.7-34.0 [facility] Comment on above: Performed By: #### C BC #### [facility] [address] [place] [address] Dr. Car Lozdaa MCHC (RBC) [Mass/Vol] 33.6 g/dL Normal 29.9-35.2 [facility] Comment on above: Performed By: #### C BC #### [facility] [address] [place] [address] Dr. Car Lozada MCV (RBC) [Entitic vol] 92.9 fL Normal 81.0-99.0 [facility] Comment on above: Performed By: #### C BC #### [facility] [address] [place] [address] Dr. Car Lozada MONO # 0.9 103/ul Critically high 0.3-0.8 [facility] Comment on above: Performed By: #### C BC #### [facility] [address] [place] [address] Dr. Car Lozada Monocytes/100 WBC (Bld) 8.3 % Normal 1.7-12.0 [facility] Comment on above: Performed By: #### C BC #### [facility] [address] [place] [address] Dr. Car Lozada NEUT # 5.2 103/ul Normal 1.4-6.5 [facility] Comment on above: Performed By: #### C BC #### [facility] [address] [place] [address] Dr. Car Lozada Neutrophils/100 WBC (Bld) 50.2 % Normal 43.0-75.0 [facility] Comment on above: Performed By: #### C BC #### [facility] [address] [place] [address] Dr. Car Lozada Platelet mean volume (Bld) [Entitic vol] 10.0 fL Normal 9.5-13.5 [facility] Comment on above: Performed By: #### C BC #### [facility] [address] [place] [address] Dr. Car Lozada PLT 251 103/ul Normal 150-450 [facility] Comment on above: Performed By: #### C BC #### [facility] [address] [place] [address] Dr. Car Lozada RBC 4.52 106/ul Normal 4.20-5.40 [facility] Comment on above: Performed By: #### C BC #### [facility] [address] [place] [address] Dr. Car Lozada WBC 10.3 103/ul Normal 4.0-11.0 [facility] Comment on above: Performed By: #### C BC #### [facility] [address] [address] [address] Car Lozada PREG QUANT HCGon 08-23-2022 HCG QUANT <1 Normal [facility] Comment on above: Performed By: #### P REGQNT #### [facility] [address] [address] [address] Car Lozada HCG RANGE SEE BELOW Normal [facility] Comment on above: Result Comment: 5-50 0.2-1 WEEK 50-500 1-2 WEEKS 100-5,000 2-3 WEEKS 500-10,000 3-4 WEEKS 1,000-50,000 4-5 WEEKS 10,000-100,000 5-6 WEEKS 15,000-200,000 6-8 WEEKS 10,000-100,000 2-3 MONTHS Performed By: #### P REGQNT #### [facility] [address] [address] [address] Car Lozada XR CHEST 2 Von [...] MIGUEL LIMON Date: 2022-08-16 10:17 Normal [facility] PAP ACOG PANEL 2: 19 to 27on 06-25-2022 . . Normal [facility] Comment on above: Performed By: #### [id number] #### [facility] [address] [address] [address] Car Lozada Age Gdln ACOG Testing - Normal [facility] Comment on above: Performed By: #### [id number] #### [facility] [address] [address] [address] Car Lozada DIAGNOSIS: Comment Abnormal [facility] Comment on above: Result Comment: EPIT HELIAL CELL ABNORMALITY. LOW GRADE SQUAMOUS INTRAEPITHELIAL LESION (LSIL). Performed By: #### [id number] #### [facility] [address] [address] [address] Car Lozada Electronically signed by: Comment Normal [facility] Comment on above: Result Comment: Phyllis Vital MD, Pathologist Performed By: #### 4 [id number] #### [facility] [address] [place] [address] Dr. Car Lozada Methodology: Comment Normal [facility] Comment on above: Result Comment: This liquid based ThinPrep(R) pap test was screened with the use of an image guided system. Performed By: #### 4 [id number] #### [facility] [address] [place] [address] Dr. Car Lozada Note: Comment Normal [facility] Comment on above: Result Comment: The Pap smear is a screening test designed to aid in the detection of premalignant and malignant conditions of the uterine cervix. It is not a diagnostic procedure and should not be used as the sole means of detecting cervical cancer. Both false-positive and false-negative reports do occur. . Performed By: #### 4 [id number] #### [facility] [address] [place] [address] Dr. Car Lozada Pathologist Provided ICD10 Comment Normal [facility] Comment on above: Result Comment: [id number] Performed By: #### [id number] #### [facility] [address] [place] [address] Dr. Car Lozdaa Performed by: Comment Normal [facility] Comment on above: Result Comment: Sidney Masters, Cyber Incident Handler (ASCP) Performed By: #### [id number] #### [facility] [address] [place] [address] Dr. Car Lozada Recommendation: Comment Abnormal [facility] Comment on above: Result Comment: Sugg est follow up as clinically appropriate. Performed By: #### 4 [id number] #### [facility] [address] [place] [address] Dr. Car Lozada Reflex Criteria: Comment Normal [facility] Comment on above: Result Comment: The HPV DNA reflex criteria were not met with this specimen result therefore, no HPV testing was performed. . Performed By: #### [id number] #### [facility] [address] [address] [address] Car Lozada Specimen adequacy: Comment Normal [facility] Comment on above: Result Comment: Sati sfactory for evaluation. Endocervical and/or squamous metaplastic cells (endocervical component) are present. Performed By: #### [id number] #### [facility] [address] [place], [place] [address] Dr. Car Lozada Body fluid albumin measureme nt (mass/volume)Ordered By: Dom Paulino on 12-22-2021 Albumin (Body fld) [Mass/Vol] 3.4 g/dL 3.2-5.5 [facility] Cholesterol [Mass/volume] in Serum or PlasmaOrdered By: Dom Paulino on 12-22-2021 Cholesterol [Mass/Vol] 228 mg/dL 140-200 [facility] Comment on above: Chol less than 200 m g/dl low risk Chol 201-239 mg/dl borderline risk Chol 240 mg/dl and greater high risk Cholesterol in LDL Calc [Mas s/Vol]Ordered By: Dom Paulino on 12-22-2021 Cholesterol in LDL [Mass/Vol] 136 mg/dL 0-100 [facility] Comment on above: LDL ATP III CLASSIFI CATION LDL less than 100 mg/dL Optimal LDL 100-129 mg/dL Near or above optimal LDL 130-159 mg/dL Borderline high LDL 160-189 mg/dL High LDL greater than 189 mg/dL Very high Cholesterol in VLDL Calc [Ma ss/Vol]Ordered By: Dom Paulino on 12-22-2021 Cholesterol in VLDL [Mass/Vol] 19 mg/dL [facility] Comprehensive Metabolic Empo n 12-22-2021 Albumin [Mass/Vol] 3.4 g/dL Normal 3.2-5.5 [facility] Comment on above: Performed By: #### E BS CMP, EBS LIPID #### [facility] [address] Albumin/Globulin [Mass ratio] 1.2 {ratio} Normal [facility] Comment on above: Performed By: #### E BS CMP, EBS LIPID #### [facility] [address] [place] [id number] [place] ALP [Catalytic activity/Vol] 48 U/L Normal 32-92 [facility] Comment on above: Performed By: #### E BS CMP, EBS LIPID #### [facility] [address] [place] [id number] [place] ALT [Catalytic activity/Vol] 14 U/L Normal 10-60 [facility] Comment on above: Performed By: #### E BS CMP, EBS LIPID #### [facility] [address] AST [Catalytic activity/Vol] 15 U/L Normal 10-42 [facility] Comment on above: Performed By: #### E BS CMP, EBS LIPID #### [facility] [address] [place] [address] [place] Bilirubin [Mass/Vol] 0.3 mg/dL Normal 0.3-1.2 [facility] Comment on above: Performed By: #### E BS CMP, EBS LIPID #### [facility] [address] [place] [address] [place] Calcium [Mass/Vol] 9.3 mg/dL Normal 8.2-10.2 [facility] Comment on above: Performed By: #### E BS CMP, EBS LIPID #### [facility] [address] [place] [address] [place] Chloride [Moles/Vol] 101 mmol/L Normal 95-114 [facility] Comment on above: Performed By: #### E BS CMP, EBS LIPID #### [facility] [address] [place] [id number] [place] CO2 [Moles/Vol] 23.8 mmol/L Normal 22.0-30.0 [facility] Comment on above: Performed By: #### E BS CMP, EBS LIPID #### [facility] [address] [place] [id number] [place] Creatinine [Mass/Vol] 0.79 mg/dL Normal 0.44-1.03 [facility] Comment on above: Performed By: #### E BS CMP, EBS LIPID #### [facility] [address] Estimated GFR ( Aleena > 60 Normal [facility] Comment on above: Result Comment: GFR estimated reference range: According to KDOQI guidelines, <60 ml/min/1.73m2 is sufficient to diagnose a patient with chronic kidney disease. Performed By: #### E BS CMP, EBS LIPID #### [facility] [address] Estimated GFR (Non- Am > 60 Normal [facility] Comment on above: Performed By: #### E BS CMP, EBS LIPID #### [facility] [address] [place] [address] Globulin (S) [Mass/Vol] 2.8 g/dL Normal [facility] Comment on above: Performed By: #### E BS CMP, EBS LIPID #### [facility] [address] [place] [address] Glucose [Mass/Vol] 76 mg/dL Normal 70-100 [facility] Comment on above: Performed By: #### E BS CMP, EBS LIPID #### [facility] [address] [place] [address] Potassium [Moles/Vol] 3.8 mmol/L Normal 3.5-5.1 [facility] Comment on above: Performed By: #### E BS CMP, EBS LIPID #### [facility] [address] [place] [address] [place] Protein [Mass/Vol] 6.2 g/dL Normal 6.1-7.9 [facility] Comment on above: Performed By: #### E BS CMP, EBS LIPID #### [facility] [address] [place] [address] [place] Sodium [Moles/Vol] 136 mmol/L Normal 136-146 [facility] Comment on above: Performed By: #### E BS CMP, EBS LIPID #### [facility] [address] [place] [address] Urea nitrogen [Mass/Vol] 10 mg/dL Normal 9-23 [facility] Comment on above: Performed By: #### E BS CMP, EBS LIPID #### [facility] [address] [id number] [facility] Creatinine and Glomerular fi ltration rate.predicted panel (S/P/Bld)Ordered By: Dom Paulino on 12-22-2021 Creatinine [Mass/Vol] 0.79 mg/dL 0.44-1.03 [facility] Estimated glomerular filtrat ion rate (GFR) non- AmericanOrdered By: Dom Paulino on 12-22-2021 GFR/1.73 sq M.predicted among non-blacks MDRD (S/P/Bld) [Vol rate/Area] > 60 mL/Min [facility] Globulin Calc (S) [Mass/Vol] Ordered By: Dom Paulino on 12-22-2021 Globulin (S) [Mass/Vol] 2.8 g/dL [facility] - Chemistry and C hemistry - challengeOrdered By: Dom Paulino on 12-22-2021 Glucose [Mass/Vol] 76 mg/dL 70-100 [facility] Lipid Profileon 12-22-2021 Cholesterol [Mass/Vol] 228 mg/dL High 140-200 [facility] Comment on above: Result Comment: Chol less than 200 mg/dl low risk Chol 201-239 mg/dl borderline risk Chol 240 mg/dl and greater high risk Performed By: #### E BS CMP, EBS LIPID #### [facility] [address] [id number] [place] Cholesterol in HDL [Mass/Vol] 73 mg/dL Normal 35-85 [facility] Comment on above: Result Comment: HDL CHOL ATP-III CLASSIFICATION Cardiovascular Risk HDL > or equal to 60 mg/dL LOW HDL < 40 mg/dL HIGH Performed By: #### E BS CMP, EBS LIPID #### [facility] [address] [id number] [facility] Cholesterol.total/Janey sterol in HDL [Mass ratio] 3.1 {ratio} Normal <5.0 [facility] Comment on above: Result Comment: PERF ORMED BY: [facility] [address] [id number] PATHOLOGIST FLAT FINISHER DENYS WOO M.D. Performed By: #### E BS CMP, EBS LIPID #### [facility] [address] LDL Cholesterol,Calculated 136 mg/dL High 0-100 [facility] Comment on above: Result Comment: LDL ATP III CLASSIFICATION LDL less than 100 mg/dL Optimal LDL 100-129 mg/dL Near or above optimal LDL 130-159 mg/dL Borderline high LDL 160-189 mg/dL High LDL greater than 189 mg/dL Very high Performed By: #### E BS CMP, EBS LIPID #### [facility] [address] Triglyceride w/Reflex 95 mg/dL Normal 35-149 [facility] Comment on above: Result Comment: TRIG ATP III CLASSIFICATION TRIG less than 150 mg/dL Normal TRIG 150-199 mg/dL Borderline high TRIG 200-500 mg/dL High TRIG greater than 500 mg/dL Very high Standard traceable to the Center for Disease Conrtrol and Prevention (CDC) test method. Performed By: #### E BS CMP, EBS LIPID #### [facility] [address] VLDL CHOLESTEROL 19 mg/dL Normal [facility] Comment on above: Performed By: #### E BS CMP, EBS LIPID #### [facility] [address] No Panel InformationOrdered By: Dom Paulino on 12-22-2021 Estimated GFR () > 60 mL/Min [facility] Comment on above: GFR estimated refere nce range: According to KDOQI guidelines, <60 ml/min/1.73m2 is sufficient to diagnose a patient with chronic kidney disease. Pharmacy Creatinine Clearance (Chem N/A [facility] Triglycerides Reflex 95 mg/dL 35-149 [facility] Comment on above: TRIG ATP III CLASSIF ICATION TRIG less than 150 mg/dL Normal TRIG 150-199 mg/dL Borderline high TRIG 200-500 mg/dL High TRIG greater than 500 mg/dL Very high Standard traceable to the Center for Disease Conrtrol and Prevention (CDC) test method. Protein [Mass/volume] in Ser um or PlasmaOrdered By: Dom Paulnio on 12-22-2021 Protein [Mass/Vol] 6.2 g/dL 6.1-7.9 [facility] Serum or plasma alanine pan otransferase measurement without P-5'-P (enzymatic activiOrdered By: Dom Paulino on 12-22-2021 ALT No additional P-5'-P [Catalytic activity/Vol] 14 U/L 10-60 [facility] Serum or plasma albumin/glob ulin mass ratioOrdered By: Dom Paulino on 12-22-2021 Albumin/Globulin [Mass ratio] 1.2 {ratio} [facility] Serum or plasma alkaline nina sphatase measurement (enzymatic activity/volume)Ordered By: Dom Paulino on 12-22-2021 ALP [Catalytic activity/Vol] 48 U/L 32-92 [facility] Serum or plasma aspartate am inotransferase measurement (enzymatic activity/volume)Ordered By: Dom Paulino on 12-22-2021 AST [Catalytic activity/Vol] 15 U/L 10-42 [facility] Serum or plasma calcium dexter urement (mass/volume)Ordered By: Dom Paulino on 12-22-2021 Calcium [Mass/Vol] 9.3 mg/dL 8.2-10.2 [facility] Serum or plasma chloride glenis surement (moles/volume)Ordered By: Dom Paulino on 12-22-2021 Chloride [Moles/Vol] 101 mmol/L 95-114 [facility] Serum or plasma high density lipoprotein (HDL) cholesterol measurementOrdered By: Dom Paulino on 12-22-2021 Cholesterol in HDL [Mass/Vol] 73 mg/dL 35-85 [facility] Comment on above: HDL CHOL ATP-III CLA SSIFICATION Cardiovascular Risk HDL > or equal to 60 mg/dL LOW HDL < 40 mg/dL HIGH Serum or plasma potassium me asurement (moles/volume)Ordered By: Dom Paulino on 12-22-2021 Potassium [Moles/Vol] 3.8 mmol/L 3.5-5.1 [facility] Serum or plasma sodium measu rement (moles/volume)Ordered By: Dom Paulino on 12-22-2021 Sodium [Moles/Vol] 136 mmol/L 136-146 [facility] Serum or plasma total biliru bin measurement (mass/volume)Ordered By: Dom Paulino on 12-22-2021 Bilirubin [Mass/Vol] 0.3 mg/dL 0.3-1.2 [facility] Serum or plasma total carbon dioxide measurement (moles/volume)Ordered By: Dom Paulino on 12-22-2021 CO2 [Moles/Vol] 23.8 mmol/L 22.0-30.0 [facility] Serum or plasma total choles terol/high density lipoprotein (HDL) cholesterol mass ratOrdered By: Dom Paulino on 12-22-2021 Cholesterol.total/Janey sterol in HDL [Mass ratio] 3.1 {ratio} [facility] Serum or plasma urea nitroge n measurement (mass/volume)Ordered By: Dom Paulino on 12-22-2021 Urea nitrogen [Mass/Vol] 10 mg/dL 9-23 [facility] Outside Recordson 09-13-2021 Outside Records [id number][facility]-2021 Outside Records [id number] #[facility] [id number] #[facility] Formson 07-14-2021 Consent Forms [id number] [facility] - Nurseon Progress Note - Nurse Antigen test ordered, test resulted positive, patient informed of positive result. In house test ordered, patient informed and swabbed, specimen sent to lab. [Electronically Signed on: 07/11/2021 16:04 EST] Kamini Tovar RN [Verified on: 07/11/2021 16:04 EST] Kamini Tovar RN Normal [facility] Progress Note - Nurse Antigen test ordered, test resulted negative, patient informed of negative result. [Electronically Signed on: 07/11/2021 11:45 EST] Kamini Tovar RN [Verified on: 07/11/2021 11:45 EST] Kamini Tovar RN [facility] Measles (Rubeola) Imon 11-28 Measles (Rubeola) Im 3.49 Normal >1.09 [facility] Comment on above: Result Comment: Interpretation: IMMUNE Reference Range: <0.91 Not Immune 0.91-1.09 Equivocal >1.09 Immune Performed By: #### M EI, JUDY, VZI, TSPOT, MEÑO #### [address] [address] Giver: Maury Watts MD Mumps,Immun,Abon 11-28-2020 Mumps,Immun,Ab 1.48 Normal >1.09 [facility] Comment on above: Result Comment: Interpretation: IMMUNE Reference Range: <0.91 Not Immune 0.91-1.09 Equivocal >1.09 Immune Performed By: #### M EI, JUDY, VZI, TSPOT, MEÑO #### [place] [id number] Giver: Maury Watts MD T-Spoton 11-28-2020 T-Spot. TB Test Normal [facility] Comment on above: Result Comment: [facility] [address] [place] [address] (NOTE) T-SPOT.TB Test Results --------- T-SPOT TB [...] M EI, JUDY, VZI, TSPOT, MEÑO #### [facility] [employer] [address] [place] [id number] Giver: Maury Watts MD VZ Immunityon 11-28-2020 VZ Immunity 2.04 Normal >1.09 [facility] Comment on above: Result Comment: Interpretation: IMMUNE Reference Range: <0.91 Not Immune 0.91-1.09 Equivocal >1.09 Immune Performed By: #### M EI, JUDY, VZI, TSPOT, MEÑO #### [facility] [address] [place] [id number] Giver: Maury Watts MD Rubella Ab, IgGon 11-25-2020 Rubella Ab, IgG 150.4 IU/mL Normal [facility] Comment on above: Result Comment: REFERENCE RANGE: <5.0 NON-REACTIVE (non-immune) 5.0 TO 9.9 EQUIVOCAL >=10.0 REACTIVE (immune) Performed By: #### M EI, JUDY, VZI, TSPOT, MEÑO #### [employer] [address] [place] [address] Giver: Maury Watts MD Rubella antibody, IgGOrdered By: Morales Gardner on 11-25-2020 Rubella virus IgG Ql (S) 150.4 IU/mL [employer] Phone: Comment on above: REFERENCE RANGE: <5.0 NON-REACTIVE (non-immune) 5.0 TO 9.9 EQUIVOCAL >=10.0 REACTIVE (immune) [employer] Phone: Encounters Encounter Date Encounter Type Care Provider Facility Start: 12-31-2023 End: 12-31-2023 ambulatory ANGIE VIVAR Not Available Start: 12-03-2023 End: 12-03-2023 ambulatory ANGIE VIVAR [...] respiratory examination DR ANGIE VIVAR . [facility] Start: 08-16-2022 End: 08-17-[address] ANGIE VIVAR . Facility: Start: 08-16-2022 End: 08-17-2022 Encounter for preprocedural respiratory examination DR ANGIE VIVAR . Facility: Start: 06-13-2022 End: 06-13-[address] ANGIE VIVAR . Facility: Start: 04-26-2022 End: 04-27-2022 ambulatory Bhavya Estrada Facility:[facility] Start: 12-22-2021 End: 12-22-2021 Departed [facility] [address] Start: 07-13-2021 End: 07-13-2021 ambulatory [facility] Facility:[facility] Start: 07-12-2021 End: 07-12-2021 ambulatory [facility] Facility:[facility] Start: 11-25-2020 End: 11-26-2020 ambulatory MORALES GARDNER [facility] Start: 11-25-2020 End: 11-25-2020 Subsequent hospital visit by physician [facility] Laboratory Procedures Date Procedure Procedure Detail Performing Clinician Start: 11-25-2020 Antibody rubella Omkar Gardner MD Work Phone: Plan of Treatment Date Care Activity Detail Author Start: 03-08-2021 Influenza vaccination Flu vacc ine (Season Ended) [employer] Phone: Start: 2005 COVID-19 Vaccine (1) COVID-19 Vaccin e (1) [employer] Phone: End: 11-25-2020 Mumps Antibody, IgG Mumps Antibody, IgG Lab Routine Once for 1 Occurrences starting 11/25/2020 until 11/25/2020 [facility] Phone: Comment on above: Once for 1 Occurrenc es starting 11/25/2020 until 11/25/2020 Mumps Antibody, IgG Mumps Antibo dy, IgG Lab Routine 11/25/2020 3:18 PM EDT [employer] Work Phone: End: 11-25-2020 Rubeola Antibody, IgG Rubeola Antibody, IgG Lab Routine Once for 1 Occurrences starting 11/25/2020 until 11/25/2020 [employer] Phone: Comment on above: Once for 1 Occurrenc es starting 11/25/2020 until 11/25/2020 Rubeola Antibody, IgG Rubeola An tibody, IgG Lab Routine 11/25/2020 3:18 PM EDT [employer] Phone: End: 11-25-2020 Tb antigen response gamma interferon t-cell susp T-Spot TB Test Lab Routine Once for 1 Occurrences starting 11/25/2020 until 11/25/2020 [employer] Phone: Comment on above: Once for 1 Occurrenc es starting 11/25/2020 until 11/25/2020 Tb antigen response gamma interferon t-cell susp T-Spot TB Test Lab Routine 11/25/2020 3:18 PM EDT [employer] Phone: End: 11-25-2020 Varicella Zoster Antibody, IgG Varicella Zoster Antibody, IgG Lab Routine Once for 1 Occurrences starting 11/25/2020 until 11/25/2020 [facility] Phone: Comment on above: Once for 1 Occurrenc es starting 11/25/2020 until 11/25/2020 Varicella Zoster Antibody, IgG Varicella Zoster Antibody, IgG Lab Routine 11/25/2020 3:18 PM EDT [facility] Phone: Payers Date Payer Category Payer Unknown [id number] 2020 Unknown [id number] 1993 Unknown [id number] 2.16.84 [id number] 1993 Unknown [id number] 2.16.84 [id number] 1993 Unknown [id number] 2.16.84 [id number] 1993 Unknown [id number] 2.16.84 [id number] 1993 Unknown [id number] 2.16.84 [id number] 1993 Unknown [id number] 2.16.84 [id number] 1993 Unknown [id number] 2.16.84 [id number] 1993 Unknown [id number] 2.16.84 [id number] 1993 Unknown [id number] 2.16.84 [id number] 1993 Unknown [id number]. [id number] 1959 Unknown [id number] Self-pay Self Pay [id number] Social History Date Type Detail Facility Tobacco smoking stat [facility] Unknown if ever smoked [facility] Phone: Start: 1995 Sex Assigned At Not on file [facility] [employer] Phone: Start: 1995 Sex Assigned At Female F [facility] Clinical Note 08-23-2022 Note Date & Type Note Facility 08-23-2022 Note OPERATIVE NOTE OPERATION DATE: 08/23/2022 PROCEDURE: LEEP Procedure. PREOPERATIVE DIAGNOSIS: Cervical dysplasia. POSTOPERATIVE DIAGNOSIS: Cervical dysplasia. ANESTHESIA: General. SURGEON: Angie Vivar D.O. PAYROLL BENEFITS ADMINISTRATOR: None. BLOOD LOSS: 5 mL. SPECIMEN: Ectocervical [...] to Recovery Room in stable condition. [facility] Medication management note 06-11-2022 Note Date & Type Note Facility 06-11-2022 Note Entered by Diane Wadsworth on June 11, 2022 09:44:53 EST From: Diane Wadsworth To: [id number] Sent: 06/11/2022 09:44:53 EST Subject: Medication Management Submitted: Complete:desogestrel-ethinyl estradiol (Velivet oral tablet) Signed by Diane Wadsworth 06/11/2022 09:44:00 EST Approved desogestrel-ethinyl estradiol (VELIVET 28 DAY TABLET) take 1 tablet by mouth once daily Qty: 84 tab(s) Days Supply: 84 Refills: 0 Substitutions Allowed Route To Pharmacy - [facility] #[id number] Signed by Diane Wadsworth Patient matched by Diane Wadsworth on 06/11/2022 09:41:06 EST From: [id number] To: Bhavya Estrada MD Sent: June 11, 2022 8:39:02 AM 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 Subject: Medication Management Due: June 12, 2022 12:05:33 AM 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 On Hold Pending Signature Drug: desogestrel-ethinyl estradiol [...] Facility Evaluation note No assessment information availa [facility] Work Phone: Summary Purpose Family [...] section and content) DATE CREATED AUTHOR 12/02/2020 [facility] DATE CREATED AUTHOR AUTHOR'S ORGANIZ ATION 12/23/2021 [facility] DATE CREATED AUTHOR AUTHOR'S ORGANIZ ATION 06/11/2022 [facility] DATE CREATED AUTHOR AUTHOR'S ORGANIZ ATION 09/05/2022 [facility] DATE CREATED AUTHOR AUTHOR'S ORGANIZ ATION 01/01/2024 [facility] EPIC Care Teams (unrecognized sec [...] BE BASED ON THE PRIMARY CLINICAL RECORDS. [employer] provides no warranty or guarantee of the accuracy or completeness of information in this document.
[2024-01-08 10:24] LABS: Glucose Fasting 85 mg/dL (<95)
[2024-01-08 12:03] LABS: Glucose 1 Hour 197 mg/dL (<180)
[2024-01-08 13:45] LABS: Glucose 3 Hour 129 mg/dL (<140)
[2024-01-08 15:58] LABS: Glucose 2 Hour 159 mg/dL (<155)
== END 2024-01-08 08:38 | disposition home or self-care (01) ==
LOC: LAB 08:37
PROVIDERS: Visit Provider Obstetrics & Gynecology
DX: R73.09 Other abnormal glucose (principal)
CPT/HCPCS: 36415; 82951; 82952

== ENCOUNTER 2024-02-18 13:01 | Outpatient (OUT) | payer BC, SELFPAY ==
--- NOTE | 2024-02-18 13:05 | US_ITS ---
[address] [address] Patient Name: MARISA ADAN MRN: [id number] date: 1995 Sex: F Assigned Patient Location: [facility] Current Patient Location: [facility] Accession/Order Number: [id number] Exam Date: 02/18/2024 13:05 Report Date: 02/18/2024 14:17 At the request of: VANESA ROSAS Procedure: US OB growth EXAMINATION: US OB growth HISTORY: SIZE INCONSISTENT WITH DATES COMPARISON: No relevant comparison available. FINDINGS: Heart Rate: 131 bpm Amniotic Fluid Volume: 12.1 cm. the largest fluid pocket 4.5 cm Number: 1 Position: Cephalic presentation, longitudinal lie BIOMETRY: BPD: 7.97 cm; 32 weeks 0 days; 29 % HC: 30.07 cm; 33 weeks 2 days; 36.30 % AC: 28.57 cm; 32 weeks 4 days; 54.60 % FL: 6.42 cm; 33 weeks 1 day; 57.70 % EFW: 1929.91 g; 51 %, 4 lbs. 8 oz. FL/AC: 22.47 FL/BPD: 80.55 HC/AC: 1.05 GESTATIONAL AGE: Age by EDC: 32 weeks 3 days RUKHSANA by EDC: 2024-04-11 Age by US: 32 weeks 5 days RUKHSANA by US: 2024-04-09 US/US OB growth IMPRESSION: Normal interval growth Electronically authenticated by: OMID DOSS Date: 02/18/2024 14:17
--- OUTSIDE RECORDS SUMMARY | 2024-02-18 13:20 | XMS_ITS | CCD ---
Author Organization [facility] Care Team Providers Care Lpn Care Manager Name Role Phone Unavailable Primary Care Provider UnavailMORALES Renner Referring Unavailable NON STAFF Primary Care Provider UnavailDO Dom Cerda Jr Attending Provider [phone] Bhavya Estrada Primary Care Unavailable Sean, Bhavya [...] JEFFRYANGIE Attending Unavailable JEFFRY, ANGIE Attending Unavailable VANESA ROSAS Attending Unavailable JEFFRY, ANGIE Attending Unavailable Allergies Allergy Classification Reported Allergen(s) Allergy Type Date of Onset Reaction(s) Facility (2 sources) Amoxicillin; Translations: [amoxicillin] Drug Allergy [facility] Repository (1 source) tiZANidine; Translations: [tiZANidine] [...] 08-23-2022 BASO # 0.1 103/ul Normal 0.0-0.1 [facility] Comment on above: Performed By: #### C BC #### [facility] [address] [place] [address] Dr. Car Lozada Basophils/100 WBC (Bld) 0.5 % Normal 0.2-2.0 [facility] Comment on above: Performed By: #### C BC #### [facility] [address] [place] [address] Dr. Car Lozada EO # 0.6 103/ul Normal 0.0-0.7 [facility] Comment on above: Performed By: #### C BC #### [facility] [address] [place] [address] Dr. Car Lozada Eosinophils/100 WBC (Bld) 5.9 % Normal 0.9-7.0 [facility] Comment on above: Performed By: #### C BC #### [facility] [address] [place] [address] Dr. Car Lozada Erythrocyte distribution width (RBC) [Ratio] 12.6 % Normal 11.0-15.0 [facility] Comment on above: Performed By: #### C BC #### [facility] [address] [place] [address] Dr. Car Lozada Hematocrit (Bld) [Volume fraction] 42.0 % Normal 36.0-48.0 [facility] Comment on above: Performed By: #### C BC #### [facility] [address] [place] [address] Dr. Car Lozada Hemoglobin (Bld) [Mass/Vol] 14.1 g/dL Normal 12.0-16.0 [facility] Comment on above: Performed By: #### C BC #### [facility] [address] [place] [address] Dr. Car Lozada IG # 0.04 10e3/ul Critically high 0.00-0.03 [facility] Comment on above: Performed By: #### C BC #### [facility] [address] [place] [address] Dr. Car Lozada IG % 0.4 % Normal 0.0-0.5 [facility] Comment on above: Performed By: #### C BC #### [facility] [address] [place] [address] Dr. Car Lozada LYMPH # 3.6 103/ul Normal 1.2-3.8 [facility] Comment on above: Performed By: #### C BC #### [facility] [address] [place] [address] Dr. Car Lozada Lymphocytes/100 WBC (Bld) 34.7 % Normal 20.5-60.0 [facility] Comment on above: Performed By: #### C BC #### [facility] [address] [place] [address] Dr. Car Lozada MANUAL DIFF REQ NO Normal [facility] Comment on above: Performed By: #### C BC #### [facility] [address] [place] [address] Dr. Car Lozada MCH (RBC) [Entitic mass] 31.2 pg Normal 26.7-34.0 [facility] Comment on above: Performed By: #### C BC #### [facility] [address] [place] [address] Dr. Car Lozada MCHC (RBC) [Mass/Vol] 33.6 g/dL Normal 29.9-35.2 [facility] Comment on above: Performed By: #### C BC #### [facility] [address] [place] [address] Dr. Car Lozada MCV (RBC) [Entitic vol] 92.9 fL Normal 81.0-99.0 [facility] Comment on above: Performed By: #### C BC #### [facility] [address] [address] [address] Car Lozada MONO # 0.9 103/ul Critically high 0.3-0.8 [facility] Comment on above: Performed By: #### C BC #### [facility] [address] [address] [address] Car Lozada Monocytes/100 WBC (Bld) 8.3 % Normal 1.7-12.0 [facility] Comment on above: Performed By: #### C BC #### [facility] [address] [place] [address] Dr. Car Lozada NEUT # 5.2 103/ul Normal 1.4-6.5 [facility] Comment on above: Performed By: #### C BC #### [facility] [address] [place] [address] Dr. Car Lozada Neutrophils/100 WBC (Bld) 50.2 % Normal 43.0-75.0 [facility] Comment on above: Performed By: #### C BC #### [facility] [address] [place] [address] Dr. Car Lozada Platelet mean volume (Bld) [Entitic vol] 10.0 fL Normal 9.5-13.5 [facility] Comment on above: Performed By: #### C BC #### [facility] [address] [place] [address] Dr. Car Lozada PLT 251 103/ul Normal 150-450 [facility] Comment on above: Performed By: #### C BC #### [facility] [address] [place] [address] Dr. Car Lozada RBC 4.52 106/ul Normal 4.20-5.40 [facility] Comment on above: Performed By: #### C BC #### [facility] [address] [place] [address] Dr. Car Lozada WBC 10.3 103/ul Normal 4.0-11.0 [facility] Comment on above: Performed By: #### C BC #### [facility] [address] [address] [address] Car Lozada PREG QUANT HCGon 08-23-2022 HCG QUANT <1 Normal [facility] Comment on above: Performed By: #### P REGQNT #### [facility] [address] [address] [address] Car Lozada HCG RANGE SEE BELOW [facility] Comment on above: Result Comment: 5-50 0.2-1 WEEK 50-500 1-2 WEEKS 100-5,000 2-3 WEEKS 500-10,000 3-4 WEEKS 1,000-50,000 4-5 WEEKS 10,000-100,000 5-6 WEEKS 15,000-200,000 6-8 WEEKS 10,000-100,000 2-3 MONTHS Performed By: #### P REGQNT #### [facility] [address] [address] [address] Car Lozada XR CHEST 2 Von [...] JOSÉ MIGUEL LIMON Date: 2022-08-16 10:17 Normal [facility] PAP ACOG PANEL 2: 21 to 27on 06-25-2022 . . Normal [facility] Comment on above: Performed By: #### [id number] #### [facility] [address] [place] [address] Dr. Car Lozada Age Gdln ACOG Testing - Normal [facility] Comment on above: Performed By: #### 4 [id number] #### [facility] [address] [place] [address] Dr. Car Lozada DIAGNOSIS: Comment Abnormal [facility] Comment on above: Result Comment: EPIT HELIAL CELL ABNORMALITY. LOW GRADE SQUAMOUS INTRAEPITHELIAL LESION (LSIL). Performed By: #### [id number] #### [facility] [address] [address] [address] Car Lozada Electronically signed by: Comment Normal [facility] Comment on above: Result Comment: Phyllis Vital MD, Pathologist Performed By: #### 4 [id number] #### [facility] [address] [address] [address] Car Lozada Methodology: Comment Normal [facility] Comment on above: Result Comment: This liquid based ThinPrep(R) pap test was screened with the use of an image guided system. Performed By: #### 4 [id number] #### [facility] [address] [place] [address] Dr. Car Lozada Note: Comment Normal [facility] Comment on above: Result Comment: The Pap smear is a screening test designed to aid in the detection of premalignant and malignant conditions of the uterine cervix. It is not a diagnostic procedure and should not be used as the sole means of detecting cervical cancer. Both false-positive and false-negative reports do occur. . Performed By: #### 4 [id number] #### [facility] [address] [place] [address] Dr. aCr Lozada Pathologist Provided ICD10 Comment Normal [facility] Comment on above: Result Comment: R87. [id number] Performed By: #### 4 [id number] #### [facility] [address] [address] [address] Car Lozada Performed by: Comment Normal [facility] Comment on above: Result Comment: Sidney Masters, Household Assistant (ASCP) Performed By: #### 4 [id number] #### [facility] [address] [place] [address] Dr. Car Lozada Recommendation: Comment Abnormal [facility] Comment on above: Result Comment: Sugg est follow up as clinically appropriate. Performed By: #### 4 [id number] #### [facility] [address] [place] [address] Dr. Car Lozada Reflex Criteria: Comment Normal [facility] Comment on above: Result Comment: The HPV DNA reflex criteria were not met with this specimen result therefore, no HPV testing was performed. . Performed By: #### 4 [id number] #### [facility] [address] [address] [address] Car Lozada Specimen adequacy: Comment Normal [facility] Comment on above: Result Comment: Sati sfactory for evaluation. Endocervical and/or squamous metaplastic cells (endocervical component) are present. Performed By: #### 4 [id number] #### [facility] [address] [address] [address] Car Lozdaa Body fluid albumin measureme nt (mass/volume)Ordered By: Dom Paulino on 12-22-2021 Albumin (Body fld) [Mass/Vol] 3.4 g/dL 3.2-5.5 [facility] Cholesterol [Mass/volume] in Serum or PlasmaOrdered By: Dom Paulino on 12-22-2021 Cholesterol [Mass/Vol] 228 mg/dL 140-200 [facility] Comment on above: Chol less than 200 m g/dl low risk Chol 201-239 mg/dl borderline risk Chol 240 mg/dl and greater high risk Cholesterol in LDL Calc [Mas s/Vol]Ordered By: Dom Paulino on 12-22-2021 Cholesterol in LDL [Mass/Vol] 136 mg/dL 0-100 [facility] Comment on above: LDL ATP III CLASSIFI CATION LDL less than 100 mg/dL Optimal LDL 100-129 mg/dL Near or above optimal LDL 130-159 mg/dL Borderline high LDL 160-189 mg/dL High LDL greater than 189 mg/dL Very high Cholesterol in VLDL Calc [Ma ss/Vol]Ordered By: Dom Paulino on 12-22-2021 Cholesterol in VLDL [Mass/Vol] 19 mg/dL [facility] Comprehensive Metabolic Empo n 12-22-2021 Albumin [Mass/Vol] 3.4 g/dL Normal 3.2-5.5 [facility] Comment on above: Performed By: #### E BS CMP, EBS LIPID #### [facility] [address] Albumin/Globulin [Mass ratio] 1.2 {ratio} Normal [facility] Comment on above: Performed By: #### E BS CMP, EBS LIPID #### [facility] [address] ALP [Catalytic activity/Vol] 48 U/L Normal 32-92 [facility] Comment on above: Performed By: #### E BS CMP, EBS LIPID #### [facility] [address] ALT [Catalytic activity/Vol] 14 U/L Normal 10-60 [facility] Comment on above: Performed By: #### E BS CMP, EBS LIPID #### [facility] [address] [place] [address] AST [Catalytic activity/Vol] 15 U/L Normal 10-42 [facility] Comment on above: Performed By: #### E BS CMP, EBS LIPID #### [facility] [address] [place] [address] Bilirubin [Mass/Vol] 0.3 mg/dL Normal 0.3-1.2 [facility] Comment on above: Performed By: #### E BS CMP, EBS LIPID #### [facility] [address] [place] [address] Calcium [Mass/Vol] 9.3 mg/dL Normal 8.2-10.2 [facility] Comment on above: Performed By: #### E BS CMP, EBS LIPID #### [facility] [address] [place] [address] [place] Chloride [Moles/Vol] 101 mmol/L Normal 95-114 [facility] Comment on above: Performed By: #### E BS CMP, EBS LIPID #### [facility] [address] [place] [address] [place] CO2 [Moles/Vol] 23.8 mmol/L Normal 22.0-30.0 [facility] Comment on above: Performed By: #### E BS CMP, EBS LIPID #### [facility] [address] [place] [address] Creatinine [Mass/Vol] 0.79 mg/dL Normal 0.44-1.03 [facility] Comment on above: Performed By: #### E BS CMP, EBS LIPID #### [address] Estimated GFR ( Aleena > 60 Normal [facility] Comment on above: Result Comment: GFR estimated reference range: According to KDOQI guidelines, <60 ml/min/1.73m2 is sufficient to diagnose a patient with chronic kidney disease. Performed By: #### E BS CMP, EBS LIPID #### [address] Estimated GFR (Non- Am > 60 Normal [facility] Comment on above: Performed By: #### E BS CMP, EBS LIPID #### [address] Globulin (S) [Mass/Vol] 2.8 g/dL Normal [facility] Comment on above: Performed By: #### E BS CMP, EBS LIPID #### [address] Glucose [Mass/Vol] 76 mg/dL Normal 70-100 [facility] Comment on above: Performed By: #### E BS CMP, EBS LIPID #### [address] Potassium [Moles/Vol] 3.8 mmol/L Normal 3.5-5.1 [facility] Comment on above: Performed By: #### E BS CMP, EBS LIPID #### [address] Protein [Mass/Vol] 6.2 g/dL Normal 6.1-7.9 [facility] Comment on above: Performed By: #### E BS CMP, EBS LIPID #### [address] Sodium [Moles/Vol] 136 mmol/L Normal 136-146 [facility] Comment on above: Performed By: #### E BS CMP, EBS LIPID #### [address] Urea nitrogen [Mass/Vol] 10 mg/dL Normal 9-23 [facility] Comment on above: Performed By: #### E JONY LING CMP LIPID #### [facility] [address] [id number] [facility] Creatinine and Glomerular fi ltration rate.predicted panel (S/P/Bld)Ordered By: Dom Paulino on 12-22-2021 Creatinine [Mass/Vol] 0.79 mg/dL 0.44-1.03 [facility] Estimated glomerular filtrat ion rate (GFR) non- AmericanOrdered By: Dom Paulino on 12-22-2021 GFR/1.73 sq M.predicted among non-blacks MDRD (S/P/Bld) [Vol rate/Area] > 60 mL/Min [facility] Globulin Calc (S) [Mass/Vol] Ordered By: Dom Paulino on 12-22-2021 Globulin (S) [Mass/Vol] 2.8 g/dL [facility] Laboratory - Chemistry and C hemistry - challengeOrdered By: Dom Paulino on 12-22-2021 Glucose [Mass/Vol] 76 mg/dL 70-100 [facility] Lipid Profileon 12-22-2021 Cholesterol [Mass/Vol] 228 mg/dL High 140-200 [facility] Comment on above: Result Comment: Chol less than 200 mg/dl low risk Chol 201-239 mg/dl borderline risk Chol 240 mg/dl and greater high risk Performed By: #### E SUSHIL ROA EBS LIPID #### [facility] [address] [id number] [place] Cholesterol in HDL [Mass/Vol] 73 mg/dL Normal 35-85 [facility] Comment on above: Result Comment: HDL CHOL ATP-III CLASSIFICATION Cardiovascular Risk HDL > or equal to 60 mg/dL LOW HDL < 40 mg/dL HIGH Performed By: #### E SUSHIL ROA, EBS LIPID #### [facility] [address] [id number] [facility] Cholesterol.total/Janey sterol in HDL [Mass ratio] 3.1 {ratio} Normal <5.0 [facility] Comment on above: Result Comment: PERF ORMED BY: [place] [address] PATHOLOGIST COLD ROLLER DENYS WOO M.D. Performed By: #### E BS CMP, EBS LIPID #### [facility] [address] LDL Cholesterol,Calculated 136 mg/dL High 0-100 [facility] Comment on above: Result Comment: LDL ATP III CLASSIFICATION LDL less than 100 mg/dL Optimal LDL 100-129 mg/dL Near or above optimal LDL 130-159 mg/dL Borderline high LDL 160-189 mg/dL High LDL greater than 189 mg/dL Very high Performed By: #### E BS CMP, EBS LIPID #### [facility] [address] [place] [address] Triglyceride w/Reflex 95 mg/dL Normal 35-149 [facility] Comment on above: Result Comment: TRIG ATP III CLASSIFICATION TRIG less than 150 mg/dL Normal TRIG 150-199 mg/dL Borderline high TRIG 200-500 mg/dL High TRIG greater than 500 mg/dL Very high Standard traceable to the Center for Disease Conrtrol and Prevention (CDC) test method. Performed By: #### E BS CMP, EBS LIPID #### [facility] [address] [place] [address] VLDL CHOLESTEROL 19 mg/dL Normal [facility] Comment on above: Performed By: #### E BS CMP, EBS LIPID #### [facility] [address] [place] [address] No Panel InformationOrdered By: Dom Paulino on 12-22-2021 Estimated GFR () > 60 mL/Min [facility] Comment on above: GFR estimated refere nce range: According to KDOQI guidelines, <60 ml/min/1.73m2 is sufficient to diagnose a patient with chronic kidney disease. Pharmacy Creatinine Clearance (Chem N/A [facility] Triglycerides Reflex 95 mg/dL 35-149 [facility] Comment on above: TRIG ATP III CLASSIF ICATION TRIG less than 150 mg/dL Normal TRIG 150-199 mg/dL Borderline high TRIG 200-500 mg/dL High TRIG greater than 500 mg/dL Very high Standard traceable to the Center for Disease Conrtrol and Prevention (CDC) test method. Protein [Mass/volume] in Ser um or PlasmaOrdered By: Dom Paulino on 12-22-2021 Protein [Mass/Vol] 6.2 g/dL 6.1-7.9 [facility] Serum or plasma alanine pan otransferase measurement without P-5'-P (enzymatic activiOrdered By: Dom Paulino on 12-22-2021 ALT No additional P-5'-P [Catalytic activity/Vol] 14 U/L 10-60 [facility] Serum or plasma albumin/glob ulin mass ratioOrdered By: Dom Paulino on 12-22-2021 Albumin/Globulin [Mass ratio] 1.2 {ratio} [facility] Serum or plasma alkaline nina sphatase measurement (enzymatic activity/volume)Ordered By: Dom Paulino on 12-22-2021 ALP [Catalytic activity/Vol] 48 U/L 32-92 [facility] Serum or plasma aspartate am inotransferase measurement (enzymatic activity/volume)Ordered By: Dom Paulino on 12-22-2021 AST [Catalytic activity/Vol] 15 U/L 10-42 [facility] Serum or plasma calcium dexter urement (mass/volume)Ordered By: Dom Paulino on 12-22-2021 Calcium [Mass/Vol] 9.3 mg/dL 8.2-10.2 [facility] Serum or plasma chloride glenis surement (moles/volume)Ordered By: Dom Paulino on 12-22-2021 Chloride [Moles/Vol] 101 mmol/L 95-114 [facility] Serum or plasma high density lipoprotein (HDL) cholesterol measurementOrdered By: Dom Paulino on 12-22-2021 Cholesterol in HDL [Mass/Vol] 73 mg/dL 35-85 [facility] Comment on above: HDL CHOL ATP-III CLA SSIFICATION Cardiovascular Risk HDL > or equal to 60 mg/dL LOW HDL < 40 mg/dL HIGH Serum or plasma potassium me asurement (moles/volume)Ordered By: Dom Paulino on 12-22-2021 Potassium [Moles/Vol] 3.8 mmol/L 3.5-5.1 [facility] Serum or plasma sodium measu rement (moles/volume)Ordered By: Dom Paulino on 12-22-2021 Sodium [Moles/Vol] 136 mmol/L 136-146 [facility] Serum or plasma total biliru bin measurement (mass/volume)Ordered By: Dom Paulino on 12-22-2021 Bilirubin [Mass/Vol] 0.3 mg/dL 0.3-1.2 [facility] Serum or plasma total carbon dioxide measurement (moles/volume)Ordered By: Dom Paulino on 12-22-2021 CO2 [Moles/Vol] 23.8 mmol/L 22.0-30.0 [facility] Serum or plasma total choles terol/high density lipoprotein (HDL) cholesterol mass ratOrdered By: Dom Paulino on 12-22-2021 Cholesterol.total/Janey sterol in HDL [Mass ratio] 3.1 {ratio} [facility] Serum or plasma urea nitroge n measurement (mass/volume)Ordered By: Dom Paulino on 12-22-2021 Urea nitrogen [Mass/Vol] 10 mg/dL 9- [facility] Outside Recordson 09-13-2021 Outside Records [id number]# 1.00[facility] Outside Recordson 08-28-2021 Outside Records [id number] #1.00[facility] Outside Records [id number] #1.00[facility] Consent Formson 07-14-2021 Consent Forms [id number] #1.00[facility] Progress Note - Nurseon Progress Note - Nurse Antigen test ordered, test resulted positive, patient informed of positive result. In house test ordered, patient informed and swabbed, specimen sent to lab. [Electronically Signed on: 07/11/2021 16:04 EST] Kamini Tovar RN [Verified on: 07/11/2021 16:04 EST] Kamini Tovar RN Normal [facility] Progress Note - Nurse Antigen test ordered, test resulted negative, patient informed of negative result. [Electronically Signed on: 07/11/2021 11:45 EST] Kamini Tovar RN [Verified on: 07/11/2021 11:45 EST] Kamini Tovar RN [facility] Measles (Rubeola) Imon 11-28 Measles (Rubeola) Im 3.49 Normal >1.09 [facility] Comment on above: Result Comment: Interpretation: IMMUNE Reference Range: <0.91 Not Immune 0.91-1.09 Equivocal >1.09 Immune Performed By: #### M EI, JUDY, VZI, TSPOT, MEÑO #### [address] [place] [id number] [employer]: Maury Watts MD Mumps,Immun,Abon 11-28-2020 Mumps,Immun,Ab 1.48 Normal >1.09 [facility] Comment on above: Result Comment: Interpretation: IMMUNE Reference Range: <0.91 Not Immune 0.91-1.09 Equivocal >1.09 Immune Performed By: #### M EI, JUDY, VZI, TSPOT, MEÑO #### [address] [id number] [employer]: Maury Watts MD T-Spoton 11-28-2020 T-Spot. TB Test Normal [facility] Comment on above: Result Comment: [facility] [employer] [address] [place] [address] (NOTE) T-SPOT.TB Test Results --------- T-SPOT TB [...] M EI, JUDY, VZI, TSPOT, MEÑO #### [employer] [address] [place] [id number] [employer]: Maury Watts MD VZ Immunityon 11-28-2020 VZ Immunity 2.04 Normal >1.09 [facility] Comment on above: Result Comment: Interpretation: IMMUNE Reference Range: <0.91 Not Immune 0.91-1.09 Equivocal >1.09 Immune Performed By: #### M EI, JUDY, VZI, TSPOT, MEÑO #### [employer] [address] [place], [place] [id number] [employer]: Maury Watts MD Rubella Ab, IgGon 11-25-2020 Rubella Ab, IgG 150.4 IU/mL Normal [facility] Comment on above: Result Comment: REFERENCE RANGE: <5.0 NON-REACTIVE (non-immune) 5.0 TO 9.9 EQUIVOCAL >=10.0 REACTIVE (immune) Performed By: #### M EI, JUDY, VZI, TSPOT, MEÑO #### [employer] [address] [place] [address] [employer]: Maury Watts MD Rubella antibody, IgGOrdered By: Morales Gardner on 11-25-2020 Rubella virus IgG Ql (S) 150.4 IU/mL [employer] Phone: Comment on above: REFERENCE RANGE: <5.0 NON-REACTIVE (non-immune) 5.0 TO 9.9 EQUIVOCAL >=10.0 REACTIVE (immune) [employer] Phone: Encounters Encounter Date Encounter Type Care Provider Facility Start: 02-03-2024 End: 02-03-2024 ambulatory VANESA ROSAS Not Available Start: 01-20-2024 End: 01-20-2024 ambulatory ANGIE VIVAR Not Available Start: 12-31-2023 End: 12-31-2023 ambulatory ANGIE JEFFRY Not Available Start: 12-03-2023 End: 12-03-2023 ambulatory ANGIE JEFFRY Not Available Start: 11-04-2023 End: 11-04-2023 ambulatory ANGIE JEFFRY Not Available Start: 10-07-2023 End: 10-07-2023 ambulatory ANGIE JEFFRY Not Available Start: 09-05-2023 End: 09-05-2023 ambulatory ANGIE JEFFRY Not Available Start: 05-21-2023 End: 05-21-2023 ambulatory ANGIE JEFFRY Not Available Start: 08-23-2022 End: 08-23-[address] ANGIE VIVAR . Facility:[facility] Start: 08-20-2022 Encounter for preprocedural respiratory examination DR ANGIE VIVAR . [facility] Start: 08-16-2022 End: 08-17-[address] ANGIE VIVAR . Facility:[facility] Start: 08-16-2022 End: 08-17-2022 Encounter for preprocedural respiratory examination DR ANGIE VIVAR . Facility:[facility] Start: 06-13-2022 End: 06-13-[address] ANGIE VIVAR . Facility:[facility] Start: 04-26-2022 End: 04-27-2022 ambulatory [facility] Facility:[facility] Start: 12-22-2021 End: 12-22-2021 Departed Referred [facility] [address] Start: 07-13-2021 End: 07-13-2021 ambulatory [facility] Facility:[facility] Start: 07-12-2021 End: 07-12-2021 ambulatory [facility] Facility:[facility] Start: 11-25-2020 End: 11-26-2020 ambulatory [facility] Start: 11-25-2020 End: 11-25-2020 Subsequent hospital visit by physician [facility] Laboratory Procedures Date Procedure Procedure Detail Performing Clinician Start: 11-25-2020 Antibody rubella Omkar Gardner MD Work Phone: Plan of Treatment Date Care Activity Detail Author Start: 03-08-2021 Influenza vaccination Flu vacc ine (Season Ended) [employer] Phone: Start: 2005 COVID-19 Vaccine (1) COVID-19 Vaccin e (1) [employer] Phone: End: 11-25-2020 Mumps Antibody, IgG Mumps Antibody, IgG Lab Routine Once for 1 Occurrences starting 11/25/2020 until 11/25/2020 [employer] Phone: Comment on above: Once for 1 Occurrenc es starting 11/25/2020 until 11/25/2020 Mumps Antibody, IgG Mumps Antibo dy, IgG Lab Routine 11/25/2020 3:18 PM EDT [employer] Phone: End: 11-25-2020 Rubeola Antibody, IgG Rubeola Antibody, IgG Lab Routine Once for 1 Occurrences starting 11/25/2020 until 11/25/2020 [employer] Phone: Comment on above: Once for 1 Occurrenc es starting 11/25/2020 until 11/25/2020 Rubeola Antibody, IgG Rubeola An tibody, IgG Lab Routine 11/25/2020 3:18 PM EDT [employer] Phone: End: 11-25-2020 Tb antigen response gamma interferon t-cell susp T-Spot TB Test Lab Routine Once for 1 Occurrences starting 11/25/2020 until 11/25/2020 [employer] Phone: Comment on above: Once for 1 Occurrenc es starting 11/25/2020 until 11/25/2020 Tb antigen response gamma interferon t-cell susp T-Spot TB Test Lab Routine 11/25/2020 3:18 PM EDT [employer] Phone: End: 11-25-2020 Varicella Zoster Antibody, IgG Varicella Zoster Antibody, IgG Lab Routine Once for 1 Occurrences starting 11/25/2020 until 11/25/2020 [employer] Phone: Comment on above: Once for 1 Occurrenc es starting 11/25/2020 until 11/25/2020 Varicella Zoster Antibody, IgG Varicella Zoster Antibody, IgG Lab Routine 11/25/2020 3:18 PM EDT [employer] Phone: Payers Date Payer Category Payer Unknown [id number] 2020 Unknown [id number] 1993 Unknown [id number] 2.16.84 [id number] 1993 Unknown [id number] 2.16.84 [id number] 1993 Unknown [id number] 2.16.84 [id number] 1993 Unknown [id number] 2.16.84 0.1.503723.3.579.2.593 1993 Unknown [id number] 2.16.84 0.1.037040.3.579.2.1259 1993 Unknown [id number] 2.16.84 0.1.977025.3.579.2.125 1993 Unknown [id number] 2.16.84 0.1.495226.3.579.2.9 1993 Unknown [id number] 2.16.84 0.1.111356.3.579.2.1258 1993 Unknown [id number] 2.16.84 0.1.023682.3.579.2.1258 1993 Unknown [id number] 2.16.84 0.1.483186.3.579.2.1258 1993 Unknown [id number] 2.16.84 0.1.930921.3.579.2.1258 1993 Unknown [id number] 2.16.840. [id number] 1959 Unknown [id number] Self-pay Self Pay [id number] Social History Date Type Detail Facility Tobacco smoking stat [facility] Unknown if ever smoked [employer] Phone: Start: 1995 Sex Assigned At Not on file M [employer] Phone: Start: 1995 Sex Assigned At Female F [facility] Clinical Note 08-23-2022 Note Date & Type Note Facility 08-23-2022 Note OPERATIVE NOTE OPERATION DATE: 08/23/2022 PROCEDURE: LEEP Procedure. PREOPERATIVE DIAGNOSIS: Cervical dysplasia. POSTOPERATIVE DIAGNOSIS: Cervical dysplasia. ANESTHESIA: General. SURGEON: Angie Vivar D.O. TRAINING PERSONNEL SUPERVISOR: None. BLOOD LOSS: 5 mL. SPECIMEN: Ectocervical [...] to Recovery Room in stable condition. [facility] Medication management note 06-11-2022 Note Date & Type Note Facility 06-11-2022 Note Entered by Diane Wadsworth on June 11, 2022 09:44:53 EST From: Diane Wadsworth To: [facility] #[id number] Sent: 06/11/2022 09:44:53 EST Subject: Medication Management Submitted: Complete:desogestrel-ethinyl estradiol (Velivet oral tablet) Signed by Diane Wadsworth 06/11/2022 09:44:00 EST Approved desogestrel-ethinyl estradiol (VELIVET 28 DAY TABLET) take 1 tablet by mouth once daily Qty: 84 tab(s) Days Supply: 84 Refills: 0 Substitutions Allowed Route To Pharmacy - [facility] #[id number] Signed by Diane Wadsworth Patient matched by Diane Wadsworth on 06/11/2022 09:41:06 EST From: [facility] #[id number] To: Bhavya Estrada MD Sent: June 11, 2022 8:39:02 AM 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 Subject: Medication Management Due: June 12, 2022 12:05:33 AM 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 On Hold Pending Signature Drug: desogestrel-ethinyl estradiol (Velivet oral tablet), take 1 tablet by mouth once daily Quantity: 84 tab(s) Days Supply: 84 Refills: 1 Substitutions Allowed Notes from Pharmacy: Dispensed Drug: desogestrel-ethinyl estradiol (Velivet oral tablet), take 1 tablet by mouth once daily Quantity: 84 tab(s) Days Supply: 84 Refills: 0 Substitutions Allowed Notes from Pharmacy: [facility] Evaluation note Note Date & Type Note Facility Evaluation note No assessment information availa [facility] Work Phone: Summary Purpose Family History [...] section and content) DATE CREATED AUTHOR 12/02/2020 [facility] DATE CREATED AUTHOR AUTHOR'S ORGANIZ ATION 12/23/[address] [facility] DATE CREATED AUTHOR AUTHOR'S ORGANIZ ATION 06/11/2022 [facility] DATE CREATED AUTHOR AUTHOR'S ORGANIZ ATION 09/05/2022 [facility] DATE CREATED AUTHOR AUTHOR'S ORGANIZ ATION 02/05/2024 [facility] Special[facility] EPIC Care Teams (unrecognized sec [...] BE BASED ON THE PRIMARY CLINICAL RECORDS. [employer] [facility] provides no warranty or guarantee of the accuracy or completeness of information in this document.
== END 2024-02-18 13:02 | disposition home or self-care (01) ==
LOC: NOMS 13:01
PROVIDERS: Visit Provider Physician Assistant
DX: O26.849 Uterine size-date discrepancy, unspecified trimester (principal); Z3A.32 32 weeks gestation of pregnancy
CPT/HCPCS: 76816

== ENCOUNTER 2024-02-25 06:59 | Outpatient (OUT) | payer BC, SELFPAY ==
--- OUTSIDE RECORDS SUMMARY | 2024-02-25 07:02 | XMS_ITS | CCD ---
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 Operator Name Role Phone Unavailable Primary Care Provider UnavailMORALES Renner Referring Unavailable NON STAFF Primary Care Provider UnavailDO Dom Cerda Jr Attending Provider Bhavya Estrada Primary Care Unavailable Sean, Bhavya [...] ANGIE Attending Unavailable ANGIE VIVAR Attending Unavailable JEFFRY, ANGIE Attending Unavailable JEFFRY, ANGIE Attending Unavailable VANESA ROSAS Attending Unavailable JEFFRY, ANGIE Attending Unavailable JEFFRY, ANGIE Attending Unavailable Allergies Allergy Classification Reported Allergen(s) Allergy Type Date of Onset Reaction(s) Facility (2 sources) Amoxicillin; Translations: [amoxicillin] Drug Allergy [facility] Repository (1 source) tiZANidine; Translations: [tiZANidine] Drug Allergy [facility] Repository Problems Problem Classification Problem Date [...] 08-23-2022 BASO # 0.1 103/ul Normal 0.0-0.1 [facility] Comment on above: Performed By: #### C BC #### [facility] [address] [place] [address] Dr. Car Lozada Basophils/100 WBC (Bld) 0.5 % Normal 0.2-2.0 [facility] Comment on above: Performed By: #### C BC #### [facility] [address] [place] [address] Dr. Car Lozada EO # 0.6 103/ul Normal 0.0-0.7 [facility] Comment on above: Performed By: #### C BC #### [facility] [address] [place] [address] Dr. Car Lozada Eosinophils/100 WBC (Bld) 5.9 % Normal 0.9-7.0 [facility] Comment on above: Performed By: #### C BC #### [facility] [address] [address] [address] Car Lozada Erythrocyte distribution width (RBC) [Ratio] 12.6 % Normal 11.0-15.0 [facility] Comment on above: Performed By: #### C BC #### [facility] [address] [place] [address] Dr. Car Lozada Hematocrit (Bld) [Volume fraction] 42.0 % Normal 36.0-48.0 [facility] Comment on above: Performed By: #### C BC #### [facility] [address] [place] [address] Dr. Car Lozada Hemoglobin (Bld) [Mass/Vol] 14.1 g/dL Normal 12.0-16.0 [facility] Comment on above: Performed By: #### C BC #### [facility] [address] [address] [address] Car Lozada IG # 0.04 10e3/ul Critically high 0.00-0.03 [facility] Comment on above: Performed By: #### C BC #### [facility] [address] [place] [address] Dr. Car Lozada IG % 0.4 % Normal 0.0-0.5 [facility] Comment on above: Performed By: #### C BC #### [facility] [address] [place] [address] Dr. Car Lozada LYMPH # 3.6 103/ul Normal 1.2-3.8 [facility] Comment on above: Performed By: #### C BC #### [facility] [address] [place] [address] Dr. Car Lozada Lymphocytes/100 WBC (Bld) 34.7 % Normal 20.5-60.0 [facility] Comment on above: Performed By: #### C BC #### [facility] [address] [place] [address] Dr. Car Lozada MANUAL DIFF REQ NO Normal [facility] Comment on above: Performed By: #### C BC #### [facility] [address] [place] [address] Dr. Car Lozada MCH (RBC) [Entitic mass] 31.2 pg Normal 26.7-34.0 [facility] Comment on above: Performed By: #### C BC #### [facility] [address] [place] [address] Dr. Car Lozada MCHC (RBC) [Mass/Vol] 33.6 g/dL Normal 29.9-35.2 [facility] Comment on above: Performed By: #### C BC #### [facility] [address] [place] [address] Dr. Car Lozada MCV (RBC) [Entitic vol] 92.9 fL Normal 81.0-99.0 [facility] Comment on above: Performed By: #### C BC #### [facility] [address] [address] [address] Car Lozada MONO # 0.9 103/ul Critically high 0.3-0.8 [facility] Comment on above: Performed By: #### C BC #### [facility] [address] [address] [address] Car Lozada Monocytes/100 WBC (Bld) 8.3 % Normal 1.7-12.0 [facility] Comment on above: Performed By: #### C BC #### [facility] [address] [place] [address] Dr. Car Lozada NEUT # 5.2 103/ul Normal 1.4-6.5 [facility] Comment on above: Performed By: #### C BC #### [facility] [address] [place] [address] Dr. Car Lozada Neutrophils/100 WBC (Bld) 50.2 % Normal 43.0-75.0 [facility] Comment on above: Performed By: #### C BC #### [facility] [address] [place] [address] Dr. Car Lozada Platelet mean volume (Bld) [Entitic vol] 10.0 fL Normal 9.5-13.5 [facility] Comment on above: Performed By: #### C BC #### [facility] [address] [place] [address] Dr. Car Lozada PLT 251 103/ul Normal 150-450 [facility] Comment on above: Performed By: #### C BC #### [facility] [address] [place] [address] Dr. Car Lozada RBC 4.52 106/ul Normal 4.20-5.40 [facility] Comment on above: Performed By: #### C BC #### [facility] [address] [place] [address] Dr. Car Lozada WBC 10.3 103/ul Normal 4.0-11.0 [facility] Comment on above: Performed By: #### C BC #### [facility] [address] [place] [address] Dr. Car Lozada PREG QUANT HCGon 08-23-2022 HCG QUANT <1 Normal [facility] Comment on above: Performed By: #### P REGQNT #### [facility] [address] [place] [address] Dr. Car Lozada HCG RANGE SEE BELOW Normal [facility] Comment on above: Result Comment: 5-50 0.2-1 WEEK 50-500 1-2 WEEKS 100-5,000 2-3 WEEKS 500-10,000 3-4 WEEKS 1,000-50,000 4-5 WEEKS 10,000-100,000 5-6 WEEKS 15,000-200,000 6-8 WEEKS 10,000-100,000 2-3 MONTHS Performed By: #### P REGQNT #### [facility] [address] [place] [address] Dr. Car Lozada XR CHEST 2 Von [...] JOSÉ MIGUEL LIMON Date: 2022-08-16 10:17 Normal [facility] PAP ACOG PANEL 2: 21 to 29on 06-25-2022 . . Normal [facility] Comment on above: Performed By: #### [id number] #### [facility] [address] [place] [address] Dr. Car Lozada Age Gdln ACOG Testing 21-29 Normal [facility] Comment on above: Performed By: #### [id number] #### [facility] [address] [place] [address] Dr. Car Lozada DIAGNOSIS: Comment Abnormal [facility] Comment on above: Result Comment: EPIT HELIAL CELL ABNORMALITY. LOW GRADE SQUAMOUS INTRAEPITHELIAL LESION (LSIL). Performed By: #### [id number] #### [facility] [address] [address] [address] Car Lozada Electronically signed by: Comment Normal [facility] Comment on above: Result Comment: Phyllis Vital MD, Pathologist Performed By: #### [id number] #### [facility] [address] [address] [address] Car Lozada Methodology: Comment Normal [facility] Comment on above: Result Comment: This liquid based ThinPrep(R) pap test was screened with the use of an image guided system. Performed By: #### 4 [id number] #### [facility] [address] [place] [address] Dr. Car Lozada Note: Comment Normal [facility] Comment on above: Result Comment: The Pap smear is a screening test designed to aid in the detection of premalignant and malignant conditions of the uterine cervix. It is not a diagnostic procedure and should not be used as the sole means of detecting cervical cancer. Both false-positive and false-negative reports do occur. . Performed By: #### [id number] #### [facility] [address] [place] [address] Dr. Car Lozada Pathologist Provided ICD10 Comment Normal [facility] Comment on above: Result Comment: [id number]. [id number] Performed By: #### 4 [id number] #### [facility] [address] [place] [address] Dr. Car Lozada Performed by: Comment Normal [facility] Comment on above: Result Comment: Sidney Masters, Employment Training Specialist (ASCP) Performed By: #### [id number] #### [facility] [address] [place] [address] Dr. Car Lozada Recommendation: Comment Abnormal [facility] Comment on above: Result Comment: Sugg est follow up as clinically appropriate. Performed By: #### 4 [id number] #### [facility] [address] [address] [address] Car Lozada Reflex Criteria: Comment Normal [facility] Comment on above: Result Comment: The HPV DNA reflex criteria were not met with this specimen result therefore, no HPV testing was performed. . Performed By: #### 4 [id number] #### [facility] [address] [address] [address] Car Lozada Specimen adequacy: Comment Normal [facility] Comment on above: Result Comment: Sati sfactory for evaluation. Endocervical and/or squamous metaplastic cells (endocervical component) are present. Performed By: #### 4 [id number] #### [facility] [address] [address] [address] Car Lozada Body fluid albumin measureme nt (mass/volume)Ordered By: Dom Paulino on 12-22-2021 Albumin (Body fld) [Mass/Vol] 3.4 g/dL 3.2-5.5 [facility] Cholesterol [Mass/volume] in Serum or PlasmaOrdered By: Dom Paulino on 12-22-2021 Cholesterol [Mass/Vol] 228 mg/dL 140-200 [facility] Comment on above: Chol less than 200 m g/dl low risk Chol 201-239 mg/dl borderline risk Chol 240 mg/dl and greater high risk Cholesterol in LDL Calc [Mas s/Vol]Ordered By: Dom Paulino on 12-22-2021 Cholesterol in LDL [Mass/Vol] 136 mg/dL 0-100 [facility] Comment on above: LDL ATP III CLASSIFI CATION LDL less than 100 mg/dL Optimal LDL 100-129 mg/dL Near or above optimal LDL 130-159 mg/dL Borderline high LDL 160-189 mg/dL High LDL greater than 189 mg/dL Very high Cholesterol in VLDL Calc [Ma ss/Vol]Ordered By: Dom Paulino on 12-22-2021 Cholesterol in VLDL [Mass/Vol] 19 mg/dL [facility] Comprehensive Metabolic Empo n 12-22-2021 Albumin [Mass/Vol] 3.4 g/dL Normal 3.2-5.5 [facility] Comment on above: Performed By: #### E BS CMP, EBS LIPID #### [address] Albumin/Globulin [Mass ratio] 1.2 {ratio} Normal [facility] Comment on above: Performed By: #### E BS CMP, EBS LIPID #### [address] ALP [Catalytic activity/Vol] 48 U/L Normal 32-92 [facility] Comment on above: Performed By: #### E BS CMP, EBS LIPID #### [address] ALT [Catalytic activity/Vol] 14 U/L Normal 10-60 [facility] Comment on above: Performed By: #### E BS CMP, EBS LIPID #### [address] AST [Catalytic activity/Vol] 15 U/L Normal 10-42 [facility] Comment on above: Performed By: #### E BS CMP, EBS LIPID #### [address] Bilirubin [Mass/Vol] 0.3 mg/dL Normal 0.3-1.2 [facility] Comment on above: Performed By: #### E BS CMP, EBS LIPID #### [address] Calcium [Mass/Vol] 9.3 mg/dL Normal 8.2-10.2 [facility] Comment on above: Performed By: #### E BS CMP, EBS LIPID #### [address] Chloride [Moles/Vol] 101 mmol/L Normal 95-114 [facility] Comment on above: Performed By: #### E BS CMP, EBS LIPID #### [facility] [address] [place] [address] [place] CO2 [Moles/Vol] 23.8 mmol/L Normal 22.0-30.0 [facility] Comment on above: Performed By: #### E BS CMP, EBS LIPID #### [facility] [address] [place] [address] [place] Creatinine [Mass/Vol] 0.79 mg/dL Normal 0.44-1.03 [facility] Comment on above: Performed By: #### E BS CMP, EBS LIPID #### [facility] [address] Estimated GFR ( Aleena > 60 [facility] Comment on above: Result Comment: GFR estimated reference range: According to KDOQI guidelines, <60 ml/min/1.73m2 is sufficient to diagnose a patient with chronic kidney disease. Performed By: #### E BS CMP, EBS LIPID #### [facility] [address] Estimated GFR (Non- Am > 60 [facility] Comment on above: Performed By: #### E BS CMP, EBS LIPID #### [address] Globulin (S) [Mass/Vol] 2.8 g/dL Normal [facility] Comment on above: Performed By: #### E BS CMP, EBS LIPID #### [address] Glucose [Mass/Vol] 76 mg/dL Normal 70-100 [facility] Comment on above: Performed By: #### E BS CMP, EBS LIPID #### [address] Potassium [Moles/Vol] 3.8 mmol/L Normal 3.5-5.1 [facility] Comment on above: Performed By: #### E BS CMP, EBS LIPID #### [facility] [address] [place] [address] Protein [Mass/Vol] 6.2 g/dL Normal 6.1-7.9 [facility] Comment on above: Performed By: #### E BS CMP, EBS LIPID #### [address] Sodium [Moles/Vol] 136 mmol/L Normal 136-146 [facility] Comment on above: Performed By: #### E BS CMP, EBS LIPID #### [facility] [address] [place] [address] [place] Urea nitrogen [Mass/Vol] 10 mg/dL Normal 9-23 [facility] Comment on above: Performed By: #### E SUSHIL ROA EBS LIPID #### [facility] [address] [id number] [facility] Creatinine and Glomerular fi ltration rate.predicted panel (S/P/Bld)Ordered By: Dom Paulino on 12-22-2021 Creatinine [Mass/Vol] 0.79 mg/dL 0.44-1.03 [facility] Estimated glomerular filtrat ion rate (GFR) non- AmericanOrdered By: Dom Paulino on 12-22-2021 GFR/1.73 sq M.predicted among non-blacks MDRD (S/P/Bld) [Vol rate/Area] > 60 mL/Min [facility] Globulin Calc (S) [Mass/Vol] Ordered By: Dom Paulino on 12-22-2021 Globulin (S) [Mass/Vol] 2.8 g/dL [facility] - Chemistry and C hemistry - challengeOrdered By: Dom Paulino on 12-22-2021 Glucose [Mass/Vol] 76 mg/dL 70-100 [facility] Lipid Profileon 12-22-2021 Cholesterol [Mass/Vol] 228 mg/dL High 140-200 [facility] Comment on above: Result Comment: Chol less than 200 mg/dl low risk Chol 201-239 mg/dl borderline risk Chol 240 mg/dl and greater high risk Performed By: #### E SUSHIL ROA, EBS LIPID #### [facility] [address] [id number] [place] Cholesterol in HDL [Mass/Vol] 73 mg/dL Normal 35-85 [facility] Comment on above: Result Comment: HDL CHOL ATP-III CLASSIFICATION Cardiovascular Risk HDL > or equal to 60 mg/dL LOW HDL < 40 mg/dL HIGH Performed By: #### E SUSHIL CMP, EBS LIPID #### [facility] [address] [place] [address] [facility] Cholesterol.total/Janey sterol in HDL [Mass ratio] 3.1 {ratio} Normal <5.0 [facility] Comment on above: Result Comment: PERF ORMED BY: [place] [address] PATHOLOGIST GRAB HOOKER DENYS WOO M.D. Performed By: #### E BS CMP, EBS LIPID #### [facility] [address] LDL Cholesterol,Calculated 136 mg/dL High 0-100 [facility] Comment on above: Result Comment: LDL ATP III CLASSIFICATION LDL less than 100 mg/dL Optimal LDL 100-129 mg/dL Near or above optimal LDL 130-159 mg/dL Borderline high LDL 160-189 mg/dL High LDL greater than 189 mg/dL Very high Performed By: #### E BS CMP, EBS LIPID #### [facility] [address] [place] [address] Triglyceride w/Reflex 95 mg/dL Normal 35-149 [facility] Comment on above: Result Comment: TRIG ATP III CLASSIFICATION TRIG less than 150 mg/dL Normal TRIG 150-199 mg/dL Borderline high TRIG 200-500 mg/dL High TRIG greater than 500 mg/dL Very high Standard traceable to the Center for Disease Conrtrol and Prevention (CDC) test method. Performed By: #### E BS CMP, EBS LIPID #### [facility] [address] [place] [address] VLDL CHOLESTEROL 19 mg/dL Normal [facility] Comment on above: Performed By: #### E BS CMP, EBS LIPID #### [facility] [address] [place] [address] No Panel InformationOrdered By: Dom Paulino on 12-22-2021 Estimated GFR () > 60 mL/Min [facility] Comment on above: GFR estimated refere nce range: According to KDOQI guidelines, <60 ml/min/1.73m2 is sufficient to diagnose a patient with chronic kidney disease. Pharmacy Creatinine Clearance (Chem N/A [facility] Triglycerides Reflex 95 mg/dL 35-149 [facility] Comment on above: TRIG ATP III CLASSIF ICATION TRIG less than 150 mg/dL Normal TRIG 150-199 mg/dL Borderline high TRIG 200-500 mg/dL High TRIG greater than 500 mg/dL Very high Standard traceable to the Center for Disease Conrtrol and Prevention (CDC) test method. Protein [Mass/volume] in Ser um or PlasmaOrdered By: Dom Paulino on 12-22-2021 Protein [Mass/Vol] 6.2 g/dL 6.1-7.9 [facility] Serum or plasma alanine pan otransferase measurement without P-5'-P (enzymatic activiOrdered By: Dom Paulino on 12-22-2021 ALT No additional P-5'-P [Catalytic activity/Vol] 14 U/L 10-60 [facility] Serum or plasma albumin/glob ulin mass ratioOrdered By: Dom Paulino on 12-22-2021 Albumin/Globulin [Mass ratio] 1.2 {ratio} [facility] Serum or plasma alkaline nina sphatase measurement (enzymatic activity/volume)Ordered By: Dom Paulino on 12-22-2021 ALP [Catalytic activity/Vol] 48 U/L 32-92 [facility] Serum or plasma aspartate am inotransferase measurement (enzymatic activity/volume)Ordered By: Dom Paulino on 12-22-2021 AST [Catalytic activity/Vol] 15 U/L 10-42 [facility] Serum or plasma calcium dexter urement (mass/volume)Ordered By: Dom Paulino on 12-22-2021 Calcium [Mass/Vol] 9.3 mg/dL 8.2-10.2 [facility] Serum or plasma chloride glenis surement (moles/volume)Ordered By: Dom Paulino on 12-22-2021 Chloride [Moles/Vol] 101 mmol/L 95-114 [facility] Serum or plasma high density lipoprotein (HDL) cholesterol measurementOrdered By: Dom Paulino on 12-22-2021 Cholesterol in HDL [Mass/Vol] 73 mg/dL 35-85 [facility] Comment on above: HDL CHOL ATP-III CLA SSIFICATION Cardiovascular Risk HDL > or equal to 60 mg/dL LOW HDL < 40 mg/dL HIGH Serum or plasma potassium me asurement (moles/volume)Ordered By: Dom Paulino on 12-22-2021 Potassium [Moles/Vol] 3.8 mmol/L 3.5-5.1 [facility] Serum or plasma sodium measu rement (moles/volume)Ordered By: Dom Paulino on 12-22-2021 Sodium [Moles/Vol] 136 mmol/L 136-146 [facility] Serum or plasma total biliru bin measurement (mass/volume)Ordered By: Dom aPulino on 12-22-2021 Bilirubin [Mass/Vol] 0.3 mg/dL 0.3-1.2 [facility] Serum or plasma total carbon dioxide measurement (moles/volume)Ordered By: Dmo Paulino on 12-22-2021 CO2 [Moles/Vol] 23.8 mmol/L 22.0-30.0 [facility] Serum or plasma total choles terol/high density lipoprotein (HDL) cholesterol mass ratOrdered By: Dom Paulino on 12-22-2021 Cholesterol.total/Janey sterol in HDL [Mass ratio] 3.1 {ratio} [facility] Serum or plasma urea nitroge n measurement (mass/volume)Ordered By: Dom Paulino on 12-22-2021 Urea nitrogen [Mass/Vol] 10 mg/dL 9-23 [facility] Outside Recordson 09-13-2021 Outside Records [id number]# 1.00[facility] Outside Recordson 08-28-2021 Outside Records [id number] #1.00[facility] Outside Records [id number] #1.00[facility] Consent Formson 07-14-2021 Consent Forms [id number] #1.00[facility] Progress Note - Nurseon Progress Note - Nurse Antigen test ordered, test resulted positive, patient informed of positive result. In house test ordered, patient informed and swabbed, specimen sent to lab. [Electronically Signed on: 07/11/2021 16:04 EST] Kamini Tovar RN [Verified on: 07/11/2021 16:04 EST] Kamini Tovar RN [facility] Progress Note - Nurse Antigen test ordered, test resulted negative, patient informed of negative result. [Electronically Signed on: 07/11/2021 11:45 EST] Kamini Tovar RN [Verified on: 07/11/2021 11:45 EST] Kamini Tovar RN [facility] Measles (Rubeola) Imon 11-28 Measles (Rubeola) Im 3.49 Normal >1.09 [facility] Comment on above: Result Comment: Interpretation: IMMUNE Reference Range: <0.91 Not Immune 0.91-1.09 Equivocal >1.09 Immune Performed By: #### M EI, JUDY, VZI, TSPOT, MEÑO #### [place] [id number] Lead Tank Mechanic: Maury Watts MD Mumps,Immun,Abon 11-28-2020 Mumps,Immun,Ab 1.48 Normal >1.09 [facility] Comment on above: Result Comment: Interpretation: IMMUNE Reference Range: <0.91 Not Immune 0.91-1.09 Equivocal >1.09 Immune Performed By: #### M EI, JUDY, VZI, TSPOT, MEÑO #### [facility] [employer] [address] [place], [place] [address] Lead Tank Mechanic: Maury Watts MD T-Spoton 11-28-2020 T-Spot. TB Test Normal [facility] Comment on above: Result Comment: [facility] [address] [place] [phone] (NOTE) T-SPOT.TB Test Results --------- T-SPOT TB [...] M EI, JUDY, VZI, TSPOT, MEÑO #### [employer] [address] [place] [id number] Lead Tank Mechanic: Maury Watts MD VZ Immunityon 11-28-2020 VZ Immunity 2.04 Normal >1.09 [facility] Comment on above: Result Comment: Interpretation: IMMUNE Reference Range: <0.91 Not Immune 0.91-1.09 Equivocal >1.09 Immune Performed By: #### M EI, JUDY, VZI, TSPOT, MEÑO #### [employer] [address] [place] [id number] Lead Tank Mechanic: Maury Watts MD Rubella Ab, IgGon 11-25-2020 Rubella Ab, IgG 150.4 IU/mL Normal [facility] Comment on above: Result Comment: REFERENCE RANGE: <5.0 NON-REACTIVE (non-immune) 5.0 TO 9.9 EQUIVOCAL >=10.0 REACTIVE (immune) Performed By: #### M EI, JUDY, VZI, TSPOT, MEÑO #### [employer] [address] [place] [address] Lead Tank Mechanic: Maury Watts MD Rubella antibody, IgGOrdered By: Morales Ortiz on 11-25-2020 Rubella virus IgG Ql (S) 150.4 IU/mL [employer] Phone: Comment on above: REFERENCE RANGE: <5.0 NON-REACTIVE (non-immune) 5.0 TO 9.9 EQUIVOCAL >=10.0 REACTIVE (immune) [employer] Phone: Encounters Encounter Date Encounter Type Care Provider Facility Start: 02-18-2024 End: 02-18-2024 ambulatory ANGIE JEFFRY Not Available Start: 02-03-2024 End: 02-03-2024 ambulatory VANESA ROSAS Not Available Start: 01-20-2024 End: 01-20-2024 ambulatory ANGIE JEFFRY Not Available Start: 12-31-2023 End: 12-31-2023 ambulatory [...] respiratory examination DR ANGIE VIVAR . [facility] Start: 08-16-2022 End: 08-17-[address] ANGIE VIVAR . Facility:[facility] Start: 08-16-2022 End: 08-17-2022 Encounter for preprocedural respiratory examination DR ANGIE VIVAR . Facility:[facility] Start: 06-13-2022 End: 06-13-[address] ANGIE VIVAR . Facility[facility] Start: 04-26-2022 End: 04-27-2022 ambulatory [facility] Facility:[facility] Start: 12-22-2021 End: 12-22-2021 Departed Referred [facility] [address] Start: 07-13-2021 End: 07-13-2021 ambulatory [facility] Facility:[facility] Start: 07-12-2021 End: 07-12-2021 ambulatory [facility] Facility:[facility] Start: 11-25-2020 End: 11-26-2020 ambulatory [facility] Start: 11-25-2020 End: 11-25-2020 Subsequent hospital visit by physician [facility] Laboratory Procedures Date Procedure Procedure Detail Performing Clinician Start: 11-25-2020 Antibody rubella Omkar Ortiz MD Work Phone: Plan of Treatment Date Care Activity Detail Author Start: 03-08-2021 Influenza vaccination Flu vacc ine (Season Ended) [employer] Phone: Start: 2005 COVID-19 Vaccine (1) COVID-19 Vaccin e (1) [employer] Phone: End: 11-25-2020 Mumps Antibody, IgG Mumps Antibody, IgG Lab Routine Once for 1 Occurrences starting 11/25/2020 until 11/25/2020 [employer] Phone: Comment on above: Once for 1 Occurrenc es starting 11/25/2020 until 11/25/2020 Mumps Antibody, IgG Mumps Antibo dy, IgG Lab Routine 11/25/2020 3:18 PM EDT [employer] Work Phone: End: 11-25-2020 Rubeola Antibody, IgG Rubeola Antibody, IgG Lab Routine Once for 1 Occurrences starting 11/25/2020 until 11/25/2020 [employer] Phone: Comment on above: Once for 1 Occurrenc es starting 11/25/2020 until 11/25/2020 Rubeola Antibody, IgG Rubeola An tibody, IgG Lab Routine 11/25/2020 3:18 PM EDT [employer] Phone: End: 11-25-2020 Tb antigen response gamma interferon t-cell susp T-Spot TB Test Lab Routine Once for 1 Occurrences starting 11/25/2020 until 11/25/2020 [employer] Phone: Comment on above: Once for 1 Occurrenc es starting 11/25/2020 until 11/25/2020 Tb antigen response gamma interferon t-cell susp T-Spot TB Test Lab Routine 11/25/2020 3:18 PM EDT [employer] Phone: End: 11-25-2020 Varicella Zoster Antibody, IgG Varicella Zoster Antibody, IgG Lab Routine Once for 1 Occurrences starting 11/25/2020 until 11/25/2020 [employer] Phone: Comment on above: Once for 1 Occurrenc es starting 11/25/2020 until 11/25/2020 Varicella Zoster Antibody, IgG Varicella Zoster Antibody, IgG Lab Routine 11/25/2020 3:18 PM EDT [employer] Phone: Payers Date Payer Category Payer Unknown [id number] 2020 Unknown [id number] 1995 Unknown [id number] 2.16.84 [id number] 1993 Unknown [id number] 2.16.84 0.1.150146.3.579.2.593 1993 Unknown [id number] 2.16.84 0.1.343723.3.579.2.593 1993 Unknown [id number] 2.16.84 0.1.078860.3.579.2.593 1993 Unknown [id number] 2.16.84 0.1.808598.3.579.2.9 1993 Unknown [id number] 2.16.84 0.1.620463.3.579.2.1258 1993 Unknown [id number] 2.16.84 0.1.596765.3.579.2.1258 1993 Unknown [id number] 2.16.84 0.1.593522.3.579.2.1258 1993 Unknown [id number] 2.16.84 0.1.977731.3.579.2.1258 1993 Unknown [id number] 2.16.84 0.1.023894.3.579.2.1258 1993 Unknown [id number] 2.16.84 0.1.399453.3.579.2.1258 1993 Unknown [id number] 2.16.84 0.1.054519.3.579.2.1258 1993 Unknown [id number] 2.16.840. 1.465441.3.579.2.9 1959 Unknown [id number] Self-pay Self Pay [id number] Social History Date Type Detail Facility Tobacco smoking stat [facility] Unknown if ever smoked [employer] Phone: Start: 1995 Sex Assigned At Not on file [employer] Phone: Start: 1995 Sex Assigned At Female F [facility] Clinical Note 08-23-2022 Note Date & Type Note Facility 08-23-2022 Note OPERATIVE NOTE OPERATION DATE: 08/23/2022 PROCEDURE: LEEP Procedure. PREOPERATIVE DIAGNOSIS: Cervical dysplasia. POSTOPERATIVE DIAGNOSIS: Cervical dysplasia. ANESTHESIA: General. SURGEON: Angie Vivar D.O. SERVICE DESK MANAGER: None. BLOOD LOSS: 5 mL. SPECIMEN: Ectocervical [...] to Recovery Room in stable condition. [facility] Medication management note 06-11-2022 Note Date & Type Note Facility 06-11-2022 Note Entered by Diane Wadsworth on June 11, 2022 09:44:53 EST From: Diane Wadsworth To: [id number] Sent: 06/11/2022 09:44:53 EST Subject: Medication Management Submitted: Complete:desogestrel-ethinyl estradiol (Velivet oral tablet) Signed by Diane Wadsworth 06/11/2022 09:44:00 EST Approved desogestrel-ethinyl estradiol (VELIVET 28 DAY TABLET) take 1 tablet by mouth once daily Qty: 84 tab(s) Days Supply: 84 Refills: 0 Substitutions Allowed Route To [facility]acy - [facility] #[id number] Signed by Diane Wadsworth Patient matched by Diane Wadsworth on 06/11/2022 09:41:06 EST From: [id number] To: Bhavya Estrada MD Sent: June 11, 2022 8:39: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 Due: June 12, 2022 12:05:33 AM 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 Pending Signature Drug: desogestrel-ethinyl estradiol (Velivet oral tablet), take 1 tablet by mouth once daily Quantity: 84 tab(s) Days Supply: 84 Refills: 1 Substitutions Allowed Notes from Pharmacy: Dispensed Drug: desogestrel-ethinyl estradiol (Velivet oral tablet), take 1 tablet by mouth once daily Quantity: 84 tab(s) Days Supply: 84 Refills: 0 Substitutions Allowed Notes from Pharmacy: [facility] Evaluation note Note Date & Type Note Facility Evaluation note No assessment information availa [facility] Work Phone: Summary Purpose Family History [...] AUTHOR 12/02/2020 [facility] DATE CREATED AUTHOR AUTHOR'S ORGANIZ ATION 12/23/2021 [facility] DATE CREATED AUTHOR AUTHOR'S ORGANIZ ATION 06/11/2022 [facility] DATE CREATED AUTHOR AUTHOR'S ORGANIZ ATION 09/05/2022 [facility] DATE CREATED AUTHOR AUTHOR'S ORGANIZ ATION 02/20/2024 [facility] [employer] Care Teams (unrecognized [...] BE BASED ON THE PRIMARY CLINICAL RECORDS. [facility]. provides no warranty or guarantee of the accuracy or completeness of information in this document.
--- NOTE | 2024-02-25 15:00 | US_ITS ---
[address] [address] Patient Name: MARISA ADAN MRN: [id number] date: 1995 Sex: F Assigned Patient Location: [facility] Current Patient Location: [facility] Accession/Order Number: [id number] Exam Date: 02/25/2024 15:01 Report Date: 02/25/2024 16:18 At the request of: ANGIE TERAN Procedure: US OB BPP w non-stress EXAMINATION: US OB BPP w non-stress HISTORY: Gestational diabetes mellitus O24.419 COMPARISON: No relevant comparison available. TECHNIQUE: Ultrasound biophysical profile was performed in the radiology department. non-reactive stress testing was performed by nursing staff in the birthing center. FINDINGS: BREATHING MOVEMENTS: 2 GROSS BODY MOVEMENTS: 2 TONE: 2 QUALITATIVE AMNIOTIC FLUID VOLUME: 2 PRESENTATION: CEPHALIC HEART RATE: 138.46 bpm AMNIOTIC FLUID VOLUME: 12.9 cm GESTATIONAL AGE: 33 weeks 3 days US/US OB BPP w non-stress IMPRESSION: Total biophysical profile score: 8 Electronically authenticated by: OMID DOSS Date: 02/25/2024 16:18
[2024-02-25 15:27] VITALS: BP 142/92; PULSE 88
[2024-02-25 16:40] VITALS: BP 137/85; PULSE 86
== END 2024-02-25 16:47 | disposition home or self-care (01) ==
LOC: US 07:00 → FBC 14:54
PROVIDERS: Visit Provider Obstetrics & Gynecology
DX: O24.419 Gestational diabetes mellitus in pregnancy, unspecified control (principal); Z3A.33 33 weeks gestation of pregnancy
CPT/HCPCS: 76818

== ENCOUNTER 2024-02-28 07:14 | Outpatient (OUT) | payer BC, SELFPAY ==
--- OUTSIDE RECORDS SUMMARY | 2024-02-28 07:16 | XMS_ITS | CCD ---
Author Organization [facility] Care Team Providers Care Post Partum Nurse Name Role Phone Unavailable Primary Care Provider [...] sources) Amoxicillin; Translations: [amoxicillin] Drug Allergy [facility] Repository (1 source) tiZANidine; Translations: [tiZANidine] Drug Allergy [facility] Repository Problems Problem Classification Problem [...] 08-23-2022 BASO # 0.1 103/ul Normal 0.0-0.1 [facility] Comment on above: Performed By: #### C BC #### [facility] [address] [place] [address] Dr. Car Lozada Basophils/100 WBC (Bld) 0.5 % Normal 0.2-2.0 [facility] Comment on above: Performed By: #### C BC #### [facility] [address] [place] [address] Dr. Car Lozada EO # 0.6 103/ul Normal 0.0-0.7 [facility] Comment on above: Performed By: #### C BC #### [facility] [address] [place] [address] Dr. Car Lozada Eosinophils/100 WBC (Bld) 5.9 % Normal 0.9-7.0 [facility] Comment on above: Performed By: #### C BC #### [facility] [address] [address] [address] Car Lozada Erythrocyte distribution width (RBC) [Ratio] 12.6 % Normal 11.0-15.0 [facility] Comment on above: Performed By: #### C BC #### [facility] [address] [place] [address] Dr. Car Lozada Hematocrit (Bld) [Volume fraction] 42.0 % Normal 36.0-48.0 [facility] Comment on above: Performed By: #### C BC #### [facility] [address] [place] [address] Dr. Car Lozada Hemoglobin (Bld) [Mass/Vol] 14.1 g/dL Normal 12.0-16.0 [facility] Comment on above: Performed By: #### C BC #### [facility] [address] [address] [address] Car Lozada IG # 0.04 10e3/ul Critically high 0.00-0.03 [facility] Comment on above: Performed By: #### C BC #### [facility] [address] [place] [address] Dr. Car Lozada IG % 0.4 % Normal 0.0-0.5 [facility] Comment on above: Performed By: #### C BC #### [facility] [address] [place] [address] Dr. Car Lozada LYMPH # 3.6 103/ul Normal 1.2-3.8 [facility] Comment on above: Performed By: #### C BC #### [facility] [address] [place] [address] Dr. Car Lozada Lymphocytes/100 WBC (Bld) 34.7 % Normal 20.5-60.0 [facility] Comment on above: Performed By: #### C BC #### [facility] [address] [place] [address] Dr. Car Lozada MANUAL DIFF REQ NO Normal [facility] Comment on above: Performed By: #### C BC #### [facility] [address] [place] [address] Dr. Car Lozada MCH (RBC) [Entitic mass] 31.2 pg Normal 26.7-34.0 [facility] Comment on above: Performed By: #### C BC #### [facility] [address] [place] [address] Dr. Car Lozada MCHC (RBC) [Mass/Vol] 33.6 g/dL Normal 29.9-35.2 [facility] Comment on above: Performed By: #### C BC #### [facility] [address] [place] [address] Dr. Car Lozada MCV (RBC) [Entitic vol] 92.9 fL Normal 81.0-99.0 [facility] Comment on above: Performed By: #### C BC #### [facility] [address] [address] [address] Car Lozada MONO # 0.9 103/ul Critically high 0.3-0.8 [facility] Comment on above: Performed By: #### C BC #### [facility] [address] [address] [address] Car Lozada Monocytes/100 WBC (Bld) 8.3 % Normal 1.7-12.0 [facility] Comment on above: Performed By: #### C BC #### [facility] [address] [place] [address] Dr. Car Lozada NEUT # 5.2 103/ul Normal 1.4-6.5 [facility] Comment on above: Performed By: #### C BC #### [facility] [address] [place] [address] Dr. Car Lozada Neutrophils/100 WBC (Bld) 50.2 % Normal 43.0-75.0 [facility] Comment on above: Performed By: #### C BC #### [facility] [address] [place] [address] Dr. Car Lozada Platelet mean volume (Bld) [Entitic vol] 10.0 fL Normal 9.5-13.5 [facility] Comment on above: Performed By: #### C BC #### [facility] [address] [place] [address] Dr. Car Lozada PLT 251 103/ul Normal 150-450 [facility] Comment on above: Performed By: #### C BC #### [facility] [address] [place] [address] Dr. Car Lozada RBC 4.52 106/ul Normal 4.20-5.40 [facility] Comment on above: Performed By: #### C BC #### [facility] [address] [place] [address] Dr. Car Lozada WBC 10.3 103/ul Normal 4.0-11.0 [facility] Comment on above: Performed By: #### C BC #### [facility] [address] [place] [address] Dr. Car Lozada PREG QUANT HCGon 08-23-2022 HCG QUANT <1 Normal [facility] Comment on above: Performed By: #### P REGQNT #### [facility] [address] [place] [address] Dr. Car Lozada HCG RANGE SEE BELOW Normal [facility] Comment on above: Result Comment: 5-50 0.2-1 WEEK 50-500 1-2 WEEKS 100-5,000 2-3 WEEKS 500-10,000 3-4 WEEKS 1,000-50,000 4-5 WEEKS 10,000-100,000 5-6 WEEKS 15,000-200,000 6-8 WEEKS 10,000-100,000 2-3 MONTHS Performed By: #### P REGQNT #### [facility] [address] [place] [address] Dr. Car Lozada XR CHEST 2 Von [...] JOSÉ MIGUEL LIMON Date: 2022-08-16 10:17 Normal [facility] PAP ACOG PANEL 2: 21 to 29on 06-25-2022 . . Normal [facility] Comment on above: Performed By: #### [id number] #### [facility] [address] [place] [address] Dr. Car Lozada Age Gdln ACOG Testing 21-29 Normal [facility] Comment on above: Performed By: #### 4 [id number] #### [facility] [address] [place] [address] Dr. Car Lozada DIAGNOSIS: Comment Abnormal [facility] Comment on above: Result Comment: EPIT HELIAL CELL ABNORMALITY. LOW GRADE SQUAMOUS INTRAEPITHELIAL LESION (LSIL). Performed By: #### 4 [id number] #### [facility] [address] [address] [address] Car Lozada Electronically signed by: Comment Normal [facility] Comment on above: Result Comment: Phyllis Vital MD, Pathologist Performed By: #### 4 [id number] #### [facility] [address] [address] [address] Car Lozada Methodology: Comment Normal [facility] Comment on above: Result Comment: This liquid based ThinPrep(R) pap test was screened with the use of an image guided system. Performed By: #### [id number] #### [facility] [address] [place] [address] Dr. Car Lozada Note: Comment Normal [facility] Comment on above: Result Comment: The Pap smear is a screening test designed to aid in the detection of premalignant and malignant conditions of the uterine cervix. It is not a diagnostic procedure and should not be used as the sole means of detecting cervical cancer. Both false-positive and false-negative reports do occur. . Performed By: #### 4 [id number] #### [facility] [address] [place] [address] Dr. Car Lozada Pathologist Provided ICD10 Comment Normal [facility] Comment on above: Result Comment: R87. [id number] Performed By: #### 4 [id number] #### [facility] [address] [place] [address] Dr. Car Lozada Performed by: Comment Normal [facility] Comment on above: Result Comment: Sidney Masters, Range Master (ASCP) Performed By: #### 4 [id number] #### [facility] [address] [place] [address] Dr. Car Lozada Recommendation: Comment Abnormal [facility] Comment on above: Result Comment: Sugg est follow up as clinically appropriate. Performed By: #### 4 [id number] #### [facility] [address] [address] [address] Car Lozada Reflex Criteria: Comment Normal [facility] Comment on above: Result Comment: The HPV DNA reflex criteria were not met with this specimen result therefore, no HPV testing was performed. . Performed By: #### 4 [id number] #### [facility] [address] [address] [address] Car Lozada Specimen adequacy: Comment Normal [facility] Comment on above: Result Comment: Sati sfactory for evaluation. Endocervical and/or squamous metaplastic cells (endocervical component) are present. Performed By: #### 4 [id number] #### [facility] [address] [address] [address] Car Lozada Body fluid albumin measureme nt (mass/volume)Ordered By: Dom Paulino on 12-22-2021 Albumin (Body fld) [Mass/Vol] 3.4 g/dL 3.2-5.5 [facility] Cholesterol [Mass/volume] in Serum or PlasmaOrdered By: Dom Paulino on 12-22-2021 Cholesterol [Mass/Vol] 228 mg/dL 140-200 [facility] Comment on above: Chol less than 200 m g/dl low risk Chol 201-239 mg/dl borderline risk Chol 240 mg/dl and greater high risk Cholesterol in LDL Calc [Mas s/Vol]Ordered By: Dom Paulino on 12-22-2021 Cholesterol in LDL [Mass/Vol] 136 mg/dL 0-100 [facility] Comment on above: LDL ATP III CLASSIFI CATION LDL less than 100 mg/dL Optimal LDL 100-129 mg/dL Near or above optimal LDL 130-159 mg/dL Borderline high LDL 160-189 mg/dL High LDL greater than 189 mg/dL Very high Cholesterol in VLDL Calc [Ma ss/Vol]Ordered By: Dom Paulino on 12-22-2021 Cholesterol in VLDL [Mass/Vol] 19 mg/dL [facility] Comprehensive Metabolic Empo n 12-22-2021 Albumin [Mass/Vol] 3.4 g/dL Normal 3.2-5.5 [facility] Comment on above: Performed By: #### E BS CMP, EBS LIPID #### [address] Albumin/Globulin [Mass ratio] 1.2 {ratio} Normal [facility] Comment on above: Performed By: #### E BS CMP, EBS LIPID #### [address] ALP [Catalytic activity/Vol] 48 U/L Normal 32-92 [facility] Comment on above: Performed By: #### E BS CMP, EBS LIPID #### [address] ALT [Catalytic activity/Vol] 14 U/L Normal 10-60 [facility] Comment on above: Performed By: #### E BS CMP, EBS LIPID #### [address] AST [Catalytic activity/Vol] 15 U/L Normal 10-42 [facility] Comment on above: Performed By: #### E BS CMP, EBS LIPID #### [address] Bilirubin [Mass/Vol] 0.3 mg/dL Normal 0.3-1.2 [facility] Comment on above: Performed By: #### E BS CMP, EBS LIPID #### [address] Calcium [Mass/Vol] 9.3 mg/dL Normal 8.2-10.2 [facility] Comment on above: Performed By: #### E BS CMP, EBS LIPID #### [address] Chloride [Moles/Vol] 101 mmol/L Normal 95-114 [facility] Comment on above: Performed By: #### E BS CMP, EBS LIPID #### [facility] [address] [place] [address] [place] CO2 [Moles/Vol] 23.8 mmol/L Normal 22.0-30.0 [facility] Comment on above: Performed By: #### E BS CMP, EBS LIPID #### [facility] [address] [place] [address] [place] Creatinine [Mass/Vol] 0.79 mg/dL Normal 0.44-1.03 [facility] Comment on above: Performed By: #### E BS CMP, EBS LIPID #### [facility] [address] Estimated GFR ( Aleena > 60 [facility] Comment on above: Result Comment: GFR estimated reference range: According to KDOQI guidelines, <60 ml/min/1.73m2 is sufficient to diagnose a patient with chronic kidney disease. Performed By: #### E BS CMP, EBS LIPID #### [facility] [address] Estimated GFR (Non- Am > 60 [facility] Comment on above: Performed By: #### E BS CMP, EBS LIPID #### [address] Globulin (S) [Mass/Vol] 2.8 g/dL Normal [facility] Comment on above: Performed By: #### E BS CMP, EBS LIPID #### [address] Glucose [Mass/Vol] 76 mg/dL Normal 70-100 [facility] Comment on above: Performed By: #### E BS CMP, EBS LIPID #### [address] Potassium [Moles/Vol] 3.8 mmol/L Normal 3.5-5.1 [facility] Comment on above: Performed By: #### E BS CMP, EBS LIPID #### [facility] [address] [place] [address] Protein [Mass/Vol] 6.2 g/dL Normal 6.1-7.9 [facility] Comment on above: Performed By: #### E BS CMP, EBS LIPID #### [address] Sodium [Moles/Vol] 136 mmol/L Normal 136-146 [facility] Comment on above: Performed By: #### E BS CMP, EBS LIPID #### [facility] [address] [place] [address] [place] Urea nitrogen [Mass/Vol] 10 mg/dL Normal 9-23 [facility] Comment on above: Performed By: #### E SUSHIL ROA EBS LIPID #### [facility] [address] [id number] [place] Creatinine and Glomerular fi ltration rate.predicted panel (S/P/Bld)Ordered By: Dom Paulino on 12-22-2021 Creatinine [Mass/Vol] 0.79 mg/dL 0.44-1.03 [facility] Estimated glomerular filtrat ion rate (GFR) non- AmericanOrdered By: Dom Paulino on 12-22-2021 GFR/1.73 sq M.predicted among non-blacks MDRD (S/P/Bld) [Vol rate/Area] > 60 mL/Min [facility] Globulin Calc (S) [Mass/Vol] Ordered By: Dom Paulino on 12-22-2021 Globulin (S) [Mass/Vol] 2.8 g/dL [facility] - Chemistry and C hemistry - challengeOrdered By: Dom Paulino on 12-22-2021 Glucose [Mass/Vol] 76 mg/dL 70-100 [facility] Lipid Profileon 12-22-2021 Cholesterol [Mass/Vol] 228 mg/dL High 140-200 [facility] Comment on above: Result Comment: Chol less than 200 mg/dl low risk Chol 201-239 mg/dl borderline risk Chol 240 mg/dl and greater high risk Performed By: #### E SUSHIL ROA, EBS LIPID #### [facility] [address] [id number] [place] Cholesterol in HDL [Mass/Vol] 73 mg/dL Normal 35-85 [facility] Comment on above: Result Comment: HDL CHOL ATP-III CLASSIFICATION Cardiovascular Risk HDL > or equal to 60 mg/dL LOW HDL < 40 mg/dL HIGH Performed By: #### E SUSHIL CMP, EBS LIPID #### [facility] [address] [place] [address] [place] Cholesterol.total/Janey sterol in HDL [Mass ratio] 3.1 {ratio} Normal <5.0 [facility] Comment on above: Result Comment: PERF ORMED BY: [place] [address] PATHOLOGIST [employer]AM[employer] DENYS WOO M.D. Performed By: #### E BS CMP, EBS LIPID #### [facility] [address] LDL Cholesterol,Calculated 136 mg/dL High 0-100 [facility] Comment on above: Result Comment: LDL ATP III CLASSIFICATION LDL less than 100 mg/dL Optimal LDL 100-129 mg/dL Near or above optimal LDL 130-159 mg/dL Borderline high LDL 160-189 mg/dL High LDL greater than 189 mg/dL Very high Performed By: #### E BS CMP, EBS LIPID #### [facility] [address] [place] [address] Triglyceride w/Reflex 95 mg/dL Normal 35-149 [facility] Comment on above: Result Comment: TRIG ATP III CLASSIFICATION TRIG less than 150 mg/dL Normal TRIG 150-199 mg/dL Borderline high TRIG 200-500 mg/dL High TRIG greater than 500 mg/dL Very high Standard traceable to the Center for Disease Conrtrol and Prevention (CDC) test method. Performed By: #### E BS CMP, EBS LIPID #### [facility] [address] [place] [address] VLDL CHOLESTEROL 19 mg/dL Normal [facility] Comment on above: Performed By: #### E BS CMP, EBS LIPID #### [facility] [address] [place] [address] No Panel InformationOrdered By: Dom Paulino on 12-22-2021 Estimated GFR () > 60 mL/Min [facility] Comment on above: GFR estimated refere nce range: According to KDOQI guidelines, <60 ml/min/1.73m2 is sufficient to diagnose a patient with chronic kidney disease. Pharmacy Creatinine Clearance (Chem N/A [facility] Triglycerides Reflex 95 mg/dL 35-149 [facility] Comment on above: TRIG ATP III CLASSIF ICATION TRIG less than 150 mg/dL Normal TRIG 150-199 mg/dL Borderline high TRIG 200-500 mg/dL High TRIG greater than 500 mg/dL Very high Standard traceable to the Center for Disease Conrtrol and Prevention (CDC) test method. Protein [Mass/volume] in Ser um or PlasmaOrdered By: Dom Paulino on 12-22-2021 Protein [Mass/Vol] 6.2 g/dL 6.1-7.9 [facility] Serum or plasma alanine pan otransferase measurement without P-5'-P (enzymatic activiOrdered By: Dom Paulino on 12-22-2021 ALT No additional P-5'-P [Catalytic activity/Vol] 14 U/L 10-60 [facility] Serum or plasma albumin/glob ulin mass ratioOrdered By: Dom Paulino on 12-22-2021 Albumin/Globulin [Mass ratio] 1.2 {ratio} [facility] Serum or plasma alkaline nina sphatase measurement (enzymatic activity/volume)Ordered By: Dom Paulino on 12-22-2021 ALP [Catalytic activity/Vol] 48 U/L 32-92 [facility] Serum or plasma aspartate am inotransferase measurement (enzymatic activity/volume)Ordered By: Dom Paulino on 12-22-2021 AST [Catalytic activity/Vol] 15 U/L 10-42 [facility] Serum or plasma calcium dexter urement (mass/volume)Ordered By: Dom Paulino on 12-22-2021 Calcium [Mass/Vol] 9.3 mg/dL 8.2-10.2 [facility] Serum or plasma chloride glenis surement (moles/volume)Ordered By: Dom Paulino on 12-22-2021 Chloride [Moles/Vol] 101 mmol/L 95-114 [facility] Serum or plasma high density lipoprotein (HDL) cholesterol measurementOrdered By: Dom Paulino on 12-22-2021 Cholesterol in HDL [Mass/Vol] 73 mg/dL 35-85 [facility] Comment on above: HDL CHOL ATP-III CLA SSIFICATION Cardiovascular Risk HDL > or equal to 60 mg/dL LOW HDL < 40 mg/dL HIGH Serum or plasma potassium me asurement (moles/volume)Ordered By: Dom Paulino on 12-22-2021 Potassium [Moles/Vol] 3.8 mmol/L 3.5-5.1 [facility] Serum or plasma sodium measu rement (moles/volume)Ordered By: Dom Paulino on 12-22-2021 Sodium [Moles/Vol] 136 mmol/L 136-146 [facility] Serum or plasma total biliru bin measurement (mass/volume)Ordered By: Dom Paulino on 12-22-2021 Bilirubin [Mass/Vol] 0.3 mg/dL 0.3-1.2 [facility] Serum or plasma total carbon dioxide measurement (moles/volume)Ordered By: Dom Paulino on 12-22-2021 CO2 [Moles/Vol] 23.8 mmol/L 22.0-30.0 [facility] Serum or plasma total choles terol/high density lipoprotein (HDL) cholesterol mass ratOrdered By: Dom Paulino on 12-22-2021 Cholesterol.total/Janey sterol in HDL [Mass ratio] 3.1 {ratio} [facility] Serum or plasma urea nitroge n measurement (mass/volume)Ordered By: Dom Paulino on 12-22-2021 Urea nitrogen [Mass/Vol] 10 mg/dL 9-23 [facility] Outside Recordson 09-13-2021 Outside Records [id number]# 1.00[facility] Outside Recordson 08-28-2021 Outside Records [id number] #1.00[facility] Outside Records [id number] #1.00[facility] Consent Formson 07-14-2021 Consent Forms [id number] #1.00[facility] Progress Note - Nurseon Progress Note - Nurse Antigen test ordered, test resulted positive, patient informed of positive result. In house test ordered, patient informed and swabbed, specimen sent to lab. [Electronically Signed on: 07/11/2021 16:04 EST] Kamini Tovar RN [Verified on: 07/11/2021 16:04 EST] Kamini Tovar RN [facility] Progress Note - Nurse Antigen test ordered, test resulted negative, patient informed of negative result. [Electronically Signed on: 07/11/2021 11:45 EST] Kamini Tovar RN [Verified on: 07/11/2021 11:45 EST] Kamini Tovar RN [facility] Measles (Rubeola) Imon 11-28 Measles (Rubeola) Im 3.49 Normal >1.09 [facility] Comment on above: Result Comment: Interpretation: IMMUNE Reference Range: <0.91 Not Immune 0.91-1.09 Equivocal >1.09 Immune Performed By: #### M EI, JUDY, VZI, TSPOT, MEÑO #### [place] [id number] [employer]: Maury Watts MD Mumps,Immun,Abon 11-28-2020 Mumps,Immun,Ab 1.48 Normal >1.09 [facility] Comment on above: Result Comment: Interpretation: IMMUNE Reference Range: <0.91 Not Immune 0.91-1.09 Equivocal >1.09 Immune Performed By: #### M EI, JUDY, VZI, TSPOT, MEÑO #### [facility] [address] [place], [place] [id number] [employer]: Maury Watts MD T-Spoton 11-28-2020 T-Spot. TB Test Normal [facility] Comment on above: Result Comment: [facility] [employer] [address] [place] [phone] (NOTE) T-SPOT.TB Test Results --------- T-SPOT TB [...] M EI, JUDY, VZI, TSPOT, MEÑO #### [facility] [address] [place] [id number] [employer]: Maury Watts MD VZ Immunityon 11-28-2020 VZ Immunity 2.04 Normal >1.09 [facility] Comment on above: Result Comment: Interpretation: IMMUNE Reference Range: <0.91 Not Immune 0.91-1.09 Equivocal >1.09 Immune Performed By: #### M EI, JUDY, VZI, TSPOT, MEÑO #### [facility] [address] [place] [address] [employer]: Maury Watts MD Rubella Ab, IgGon 11-25-2020 Rubella Ab, IgG 150.4 IU/mL Normal [facility] Comment on above: Result Comment: REFERENCE RANGE: <5.0 NON-REACTIVE (non-immune) 5.0 TO 9.9 EQUIVOCAL >=10.0 REACTIVE (immune) Performed By: #### M EI, JUDY, VZI, TSPOT, MEÑO #### [facility] [address] [place] [address] [employer]: Maury Watts MD Rubella antibody, IgGOrdered By: Morales Ortiz on 11-25-2020 Rubella virus IgG Ql (S) 150.4 IU/mL [employer] Phone: Comment on above: REFERENCE RANGE: <5.0 NON-REACTIVE (non-immune) 5.0 TO 9.9 EQUIVOCAL >=10.0 REACTIVE (immune) [employer] Phone: Encounters Encounter Date Encounter Type Care [...] respiratory examination DR ANGIE VIVAR . [facility] Start: 08-16-2022 End: 08-17-[address] ANGIE VIVAR . Facility:[facility] Start: 08-16-2022 End: 08-17-2022 Encounter for preprocedural respiratory examination DR ANGIE VIVAR . Facility:[facility] Start: 06-13-2022 End: 06-13-[address] ANGIE VIVAR . Facility:[facility] Start: 04-26-2022 End: 04-27-2022 ambulatory [facility] Facility:[facility] Start: 12-22-2021 End: 12-22-2021 Departed Referred [facility] [address] Start: 07-13-2021 End: 07-13-2021 ambulatory [facility] Facility:[facility] Start: 07-12-2021 End: 07-12-2021 ambulatory [facility] Facility:[facility] Start: 11-25-2020 End: 11-26-2020 ambulatory MORALES BAKERWISOPHIA [facility] Start: 11-25-2020 End: 11-25-2020 Subsequent hospital visit by physician [facility] Laboratory Procedures Date Procedure Procedure Detail Performing Clinician Start: 11-25-2020 Antibody rubella Omkar Ortiz MD Work Phone: Plan of Treatment Date Care Activity Detail Author Start: 03-08-2021 Influenza vaccination Flu vacc ine (Season Ended) [employer] Phone: Start: 2005 COVID-19 Vaccine (1) COVID-19 Vaccin e (1) [employer] Phone: End: 11-25-2020 Mumps Antibody, IgG Mumps Antibody, IgG Lab Routine Once for 1 Occurrences starting 11/25/2020 until 11/25/2020 [employer] Phone: Comment on above: Once for 1 Occurrenc es starting 11/25/2020 until 11/25/2020 Mumps Antibody, IgG Mumps Antibo dy, IgG Lab Routine 11/25/2020 3:18 PM EDT [facility] [employer] Work Phone: End: 11-25-2020 Rubeola Antibody, IgG Rubeola Antibody, IgG Lab Routine Once for 1 Occurrences starting 11/25/2020 until 11/25/2020 [employer] Phone: Comment on above: Once for 1 Occurrenc es starting 11/25/2020 until 11/25/2020 Rubeola Antibody, IgG Rubeola An tibody, IgG Lab Routine 11/25/2020 3:18 PM EDT [employer] Phone: End: 11-25-2020 Tb antigen response gamma interferon t-cell susp T-Spot TB Test Lab Routine Once for 1 Occurrences starting 11/25/2020 until 11/25/2020 [employer] Phone: Comment on above: Once for 1 Occurrenc es starting 11/25/2020 until 11/25/2020 Tb antigen response gamma interferon t-cell susp T-Spot TB Test Lab Routine 11/25/2020 3:18 PM EDT [employer] Phone: End: 11-25-2020 Varicella Zoster Antibody, IgG Varicella Zoster Antibody, IgG Lab Routine Once for 1 Occurrences starting 11/25/2020 until 11/25/2020 [employer] Phone: Comment on above: Once for 1 Occurrenc es starting 11/25/2020 until 11/25/2020 Varicella Zoster Antibody, IgG Varicella Zoster Antibody, IgG Lab Routine 11/25/2020 3:18 PM EDT [employer] Phone: Payers Date Payer Category Payer Unknown [id number] 2020 Unknown [id number] 1993 Unknown [id number] 2.16.84 0.1.772116.3.579.2.718 1993 Unknown [id number] 2.16.84 0.1.334238.3.579.2.593 1993 Unknown [id number] 2.16.84 0.1.963140.3.579.2.593 1993 Unknown [id number] 2.16.84 0.1.403742.3.579.2.593 1993 Unknown [id number] 2.16.84 0.1.382355.3.579.2.9 1993 Unknown [id number] 2.16.84 0.1.421793.3.579.2.1258 1993 Unknown [id number] 2.16.84 0.1.429230.3.579.2.1258 1993 Unknown [id number] 2.16.84 0.1.564682.3.579.2.1258 1993 Unknown [id number] 2.16.84 0.1.552687.3.579.2.1258 1993 Unknown [id number] 2.16.84 0.1.882054.3.579.2.1258 1993 Unknown [id number] 2.16.84 0.1.690904.3.579.2.1258 1993 Unknown [id number] 2.16.84 0.1.000465.3.579.2.1258 1993 Unknown [id number] 2.16.840. 1.468520.3.579.2.9 1959 Unknown [id number] Self-pay Self Pay [id number] Social History Date Type Detail Facility Tobacco smoking stat [facility] Unknown if ever smoked [employer] Phone: Start: 1995 Sex Assigned At Not on file M [employer] Phone: Start: 1995 Sex Assigned At Female F [facility] Clinical Note 08-23-2022 Note Date & Type Note Facility 08-23-2022 Note OPERATIVE NOTE OPERATION DATE: 08/23/2022 PROCEDURE: LEEP Procedure. PREOPERATIVE DIAGNOSIS: Cervical dysplasia. POSTOPERATIVE DIAGNOSIS: Cervical dysplasia. ANESTHESIA: General. SURGEON: Angie Vivar D.O. MOVIE EXTRA: None. BLOOD LOSS: 5 mL. SPECIMEN: Ectocervical [...] to Recovery Room in stable condition. [facility] Medication management note 06-11-2022 Note Date & Type Note Facility 06-11-2022 Note Entered by Diane Wadsworth on June 11, 2022 09:44:53 EST From: Diane Wadsworth To: [id number] Sent: 06/11/2022 09:44:53 EST Subject: Medication Management Submitted: Complete:desogestrel-ethinyl estradiol (Velivet oral tablet) Signed by Diane Wadsworth 06/11/2022 09:44:00 EST Approved desogestrel-ethinyl estradiol (VELIVET 28 DAY TABLET) take 1 tablet by mouth once daily Qty: 84 tab(s) Days Supply: 84 Refills: 0 Substitutions Allowed Route To Pharmacy - [id number] Signed by Diane Wadsworth Patient matched by Diane Wadsworth on 06/11/2022 09:41:06 EST From: [id number] To: Bhavya Estrada MD Sent: June 11, 2022 8:39:02 AM [employer] CON[employer] Subject: Medication Management Due: June 12, 2022 12:05:33 AM [employer] CONSULTANT On Hold Pending Signature Drug: desogestrel-ethinyl estradiol (Velivet oral tablet), take 1 tablet by mouth once daily Quantity: 84 tab(s) Days Supply: 84 Refills: 1 Substitutions Allowed Notes from Pharmacy: Dispensed Drug: desogestrel-ethinyl estradiol (Velivet oral tablet), take 1 tablet by mouth once daily Quantity: 84 tab(s) Days Supply: 84 Refills: 0 Substitutions Allowed Notes from Pharmacy: [facility] Evaluation note Note Date & Type Note Facility Evaluation note No assessment information availa [facility] Work Phone: Summary Purpose Family History No [...] content) DATE CREATED AUTHOR 12/02/2020 [facility] DATE CREATED AUTHOR AUTHOR'S ORGANIZ ATION 12/23/2021 [facility] DATE CREATED AUTHOR AUTHOR'S ORGANIZ ATION 06/11/[address] [facility] DATE CREATED AUTHOR AUTHOR'S ORGANIZ ATION 09/05/2022 [facility] DATE CREATED AUTHOR AUTHOR'S ORGANIZ ATION 02/20/2024 [facility] [employer] Care Teams (unrecognized [...] ON THE PRIMARY CLINICAL RECORDS. [facility] [employer] [facility]. provides no warranty or guarantee of the accuracy or completeness of information in this document.
[2024-02-28 08:05] VITALS: BP 141/89; PULSE 100
[2024-02-28 08:28] VITALS: BP 126/89; PULSE 94
== END 2024-02-28 08:33 | disposition home or self-care (01) ==
LOC: FBCO 07:15 → FBC 08:00
PROVIDERS: Visit Provider Obstetrics & Gynecology
DX: O24.419 Gestational diabetes mellitus in pregnancy, unspecified control (principal)
CPT/HCPCS: 59025

== ENCOUNTER 2024-03-03 07:32 | Outpatient (OUT) | payer BC, SELFPAY ==
--- OUTSIDE RECORDS SUMMARY | 2024-03-03 07:35 | XMS_ITS | CCD ---
Author Organization [facility] Care Team Providers Care Architecture Instructor Name Role Phone Unavailable Primary Care Provider [...] (2 sources) Amoxicillin; Translations: [amoxicillin] Drug Allergy [facility] Repository (1 source) tiZANidine; Translations: [tiZANidine] Drug Allergy [facility] Repository Problems Problem Classification [...] # 0.1 103/ul Normal 0.0-0.1 [facility] Comment on above: Performed By: #### C BC #### [facility] [address] [place] [address] Dr. Car Lozada Basophils/100 WBC (Bld) 0.5 % Normal 0.2-2.0 [facility] Comment on above: Performed By: #### C BC #### [facility] [address] [place] [address] Dr. Car Lozada EO # 0.6 103/ul Normal 0.0-0.7 [facility] Comment on above: Performed By: #### C BC #### [facility] [address] [place] [address] Dr. Car Lozada Eosinophils/100 WBC (Bld) 5.9 % Normal 0.9-7.0 [facility] Comment on above: Performed By: #### C BC #### [facility] [address] [address] [address] Car Lozada Erythrocyte distribution width (RBC) [Ratio] 12.6 % Normal 11.0-15.0 [facility] Comment on above: Performed By: #### C BC #### [facility] [address] [place] [address] Dr. Car Lozada Hematocrit (Bld) [Volume fraction] 42.0 % Normal 36.0-48.0 [facility] Comment on above: Performed By: #### C BC #### [facility] [address] [place] [address] Dr. Car Lozada Hemoglobin (Bld) [Mass/Vol] 14.1 g/dL Normal 12.0-16.0 [facility] Comment on above: Performed By: #### C BC #### [facility] [address] [address] [address] Car Lozada IG # 0.04 10e3/ul Critically high 0.00-0.03 [facility] Comment on above: Performed By: #### C BC #### [facility] [address] [place] [address] Dr. Car Lozada IG % 0.4 % Normal 0.0-0.5 [facility] Comment on above: Performed By: #### C BC #### [facility] [address] [place] [address] Dr. Car Lozada LYMPH # 3.6 103/ul Normal 1.2-3.8 [facility] Comment on above: Performed By: #### C BC #### [facility] [address] [place] [address] Dr. Car Lozada Lymphocytes/100 WBC (Bld) 34.7 % Normal 20.5-60.0 [facility] Comment on above: Performed By: #### C BC #### [facility] [address] [place] [address] Dr. Car Lozada MANUAL DIFF REQ NO Normal [facility] Comment on above: Performed By: #### C BC #### [facility] [address] [place] [address] Dr. Car Lozada MCH (RBC) [Entitic mass] 31.2 pg Normal 26.7-34.0 [facility] Comment on above: Performed By: #### C BC #### [facility] [address] [place] [address] Dr. Car Lozada MCHC (RBC) [Mass/Vol] 33.6 g/dL Normal 29.9-35.2 [facility] Comment on above: Performed By: #### C BC #### [facility] [address] [place] [address] Dr. Car Lozada MCV (RBC) [Entitic vol] 92.9 fL Normal 81.0-99.0 [facility] Comment on above: Performed By: #### C BC #### [facility] [address] [address] [address] Car Lozada MONO # 0.9 103/ul Critically high 0.3-0.8 [facility] Comment on above: Performed By: #### C BC #### [facility] [address] [address] [address] Car Lozada Monocytes/100 WBC (Bld) 8.3 % Normal 1.7-12.0 [facility] Comment on above: Performed By: #### C BC #### [facility] [address] [place] [address] Dr. Car Lozada NEUT # 5.2 103/ul Normal 1.4-6.5 [facility] Comment on above: Performed By: #### C BC #### [facility] [address] [place] [address] Dr. Car Lozada Neutrophils/100 WBC (Bld) 50.2 % Normal 43.0-75.0 [facility] Comment on above: Performed By: #### C BC #### [facility] [address] [place] [address] Dr. Car Lozada Platelet mean volume (Bld) [Entitic vol] 10.0 fL Normal 9.5-13.5 [facility] Comment on above: Performed By: #### C BC #### [facility] [address] [place] [address] Dr. Car Lozada PLT 251 103/ul Normal 150-450 [facility] Comment on above: Performed By: #### C BC #### [facility] [address] [place] [address] Dr. Car Lozada RBC 4.52 106/ul Normal 4.20-5.40 [facility] Comment on above: Performed By: #### C BC #### [facility] [address] [place] [address] Dr. Car Lozada WBC 10.3 103/ul Normal 4.0-11.0 [facility] Comment on above: Performed By: #### C BC #### [facility] [address] [place] [address] Dr. Car Lozada PREG QUANT HCGon 08-23-2022 HCG QUANT <1 Normal [facility] Comment on above: Performed By: #### P REGQNT #### [facility] [address] [place] [address] Dr. Car Lozada HCG RANGE SEE BELOW Normal [facility] Comment on above: Result Comment: 5-50 0.2-1 WEEK 50-500 1-2 WEEKS 100-5,000 2-3 WEEKS 500-10,000 3-4 WEEKS 1,000-50,000 4-5 WEEKS 10,000-100,000 5-6 WEEKS 15,000-200,000 6-8 WEEKS 10,000-100,000 2-3 MONTHS Performed By: #### P REGQNT #### [facility] [address] [place] [address] Dr. Car Lozada XR CHEST 2 Von [...] LIMON Date: 2022-08-16 10:17 Normal [facility] PAP ACOG PANEL 2: 21 to 29on 06-25-2022 . . Normal [facility] Comment on above: Performed By: #### [id number] #### [facility] [address] [place] [address] Dr. Car Lozada Age Gdln ACOG Testing 21-29 Normal [facility] Comment on above: Performed By: #### [id number] #### [facility] [address] [place] [address] Dr. Car Lozada DIAGNOSIS: Comment Abnormal [facility] Comment on above: Result Comment: EPIT HELIAL CELL ABNORMALITY. LOW GRADE SQUAMOUS INTRAEPITHELIAL LESION (LSIL). Performed By: #### [id number] #### [facility] [address] [address] [address] Car Lozada Electronically signed by: Comment Normal [facility] Comment on above: Result Comment: Phyllis Vital MD, Pathologist Performed By: #### 4 [id number] #### [facility] [address] [address] [address] Car Lozada Methodology: Comment Normal [facility] Comment on above: Result Comment: This liquid based ThinPrep(R) pap test was screened with the use of an image guided system. Performed By: #### 4 [id number] #### [facility] [address] [place] [address] Dr. Car Lozada Note: Comment Normal [facility] Comment on above: Result Comment: The Pap smear is a screening test designed to aid in the detection of premalignant and malignant conditions of the uterine cervix. It is not a diagnostic procedure and should not be used as the sole means of detecting cervical cancer. Both false-positive and false-negative reports do occur. . Performed By: #### 4 [id number] #### [facility] [address] [place] [address] Dr. Car Lozada Pathologist Provided ICD10 Comment Normal [facility] Comment on above: Result Comment: [id number]. [id number] Performed By: #### 4 [id number] #### [facility] [address] [place] [address] Dr. Car Lozada Performed by: Comment Normal [facility] Comment on above: Result Comment: Sidney Masters, Childcare Aide (ASCP) Performed By: #### 4 [id number] #### [facility] [address] [place] [address] Dr. Car Lozada Recommendation: Comment Abnormal [facility] Comment on above: Result Comment: Sugg est follow up as clinically appropriate. Performed By: #### 4 [id number] #### [facility] [address] [address] [address] Car Lozada Reflex Criteria: Comment Normal [facility] Comment on above: Result Comment: The HPV DNA reflex criteria were not met with this specimen result therefore, no HPV testing was performed. . Performed By: #### 4 [id number] #### [facility] [address] [address] [address] Car Lozada Specimen adequacy: Comment Normal [facility] Comment on above: Result Comment: Sati sfactory for evaluation. Endocervical and/or squamous metaplastic cells (endocervical component) are present. Performed By: #### 4 [id number] #### [facility] [address] [address] [address] Car Lozada Body fluid albumin measureme nt (mass/volume)Ordered By: Dom Paulino on 12-22-2021 Albumin (Body fld) [Mass/Vol] 3.4 g/dL 3.2-5.5 [facility] Cholesterol [Mass/volume] in Serum or PlasmaOrdered By: Dom Paulino on 12-22-2021 Cholesterol [Mass/Vol] 228 mg/dL 140-200 [facility] Comment on above: Chol less than 200 m g/dl low risk Chol 201-239 mg/dl borderline risk Chol 240 mg/dl and greater high risk Cholesterol in LDL Calc [Mas s/Vol]Ordered By: Dom Paulino on 12-22-2021 Cholesterol in LDL [Mass/Vol] 136 mg/dL 0-100 [facility] Comment on above: LDL ATP III CLASSIFI CATION LDL less than 100 mg/dL Optimal LDL 100-129 mg/dL Near or above optimal LDL 130-159 mg/dL Borderline high LDL 160-189 mg/dL High LDL greater than 189 mg/dL Very high Cholesterol in VLDL Calc [Ma ss/Vol]Ordered By: Dom Paulino on 12-22-2021 Cholesterol in VLDL [Mass/Vol] 19 mg/dL [facility] Comprehensive Metabolic Empo n 12-22-2021 Albumin [Mass/Vol] 3.4 g/dL Normal 3.2-5.5 [facility] Comment on above: Performed By: #### E BS CMP, EBS LIPID #### [address] Albumin/Globulin [Mass ratio] 1.2 {ratio} Normal [facility] Comment on above: Performed By: #### E BS CMP, EBS LIPID #### [address] ALP [Catalytic activity/Vol] 48 U/L Normal 32-92 [facility] Comment on above: Performed By: #### E BS CMP, EBS LIPID #### [address] ALT [Catalytic activity/Vol] 14 U/L Normal 10-60 [facility] Comment on above: Performed By: #### E BS CMP, EBS LIPID #### [address] AST [Catalytic activity/Vol] 15 U/L Normal 10-42 [facility] Comment on above: Performed By: #### E BS CMP, EBS LIPID #### [address] Bilirubin [Mass/Vol] 0.3 mg/dL Normal 0.3-1.2 [facility] Comment on above: Performed By: #### E BS CMP, EBS LIPID #### [address] Calcium [Mass/Vol] 9.3 mg/dL Normal 8.2-10.2 [facility] Comment on above: Performed By: #### E BS CMP, EBS LIPID #### [address] Chloride [Moles/Vol] 101 mmol/L Normal 95-114 [facility] Comment on above: Performed By: #### E BS CMP, EBS LIPID #### [facility] [address] [place] [address] [place] CO2 [Moles/Vol] 23.8 mmol/L Normal 22.0-30.0 [facility] Comment on above: Performed By: #### E BS CMP, EBS LIPID #### [facility] [address] [place] [address] [place] Creatinine [Mass/Vol] 0.79 mg/dL Normal 0.44-1.03 [facility] Comment on above: Performed By: #### E BS CMP, EBS LIPID #### [facility] [address] Estimated GFR ( Aleena > 60 [facility] Comment on above: Result Comment: GFR estimated reference range: According to KDOQI guidelines, <60 ml/min/1.73m2 is sufficient to diagnose a patient with chronic kidney disease. Performed By: #### E BS CMP, EBS LIPID #### [facility] [address] Estimated GFR (Non- Am > 60 [facility] Comment on above: Performed By: #### E BS CMP, EBS LIPID #### [address] Globulin (S) [Mass/Vol] 2.8 g/dL Normal [facility] Comment on above: Performed By: #### E BS CMP, EBS LIPID #### [address] Glucose [Mass/Vol] 76 mg/dL Normal 70-100 [facility] Comment on above: Performed By: #### E BS CMP, EBS LIPID #### [address] Potassium [Moles/Vol] 3.8 mmol/L Normal 3.5-5.1 [facility] Comment on above: Performed By: #### E BS CMP, EBS LIPID #### [facility] [address] [place] [address] Protein [Mass/Vol] 6.2 g/dL Normal 6.1-7.9 [facility] Comment on above: Performed By: #### E BS CMP, EBS LIPID #### [address] Sodium [Moles/Vol] 136 mmol/L Normal 136-146 [facility] Comment on above: Performed By: #### E BS CMP, EBS LIPID #### [facility] [address] [place] [address] [place] Urea nitrogen [Mass/Vol] 10 mg/dL Normal 9-23 [facility] Comment on above: Performed By: #### E SUSHIL ROA EBS LIPID #### [facility] [address] [id number] [facility] Creatinine and Glomerular fi ltration rate.predicted panel (S/P/Bld)Ordered By: Dom Paulino on 12-22-2021 Creatinine [Mass/Vol] 0.79 mg/dL 0.44-1.03 [facility] Estimated glomerular filtrat ion rate (GFR) non- AmericanOrdered By: Dom Paulino on 12-22-2021 GFR/1.73 sq M.predicted among non-blacks MDRD (S/P/Bld) [Vol rate/Area] > 60 mL/Min [facility] Globulin Calc (S) [Mass/Vol] Ordered By: Dom Paulino on 12-22-2021 Globulin (S) [Mass/Vol] 2.8 g/dL [facility] - Chemistry and C hemistry - challengeOrdered By: Dom Paulino on 12-22-2021 Glucose [Mass/Vol] 76 mg/dL 70-100 [facility] Lipid Profileon 12-22-2021 Cholesterol [Mass/Vol] 228 mg/dL High 140-200 [facility] Comment on above: Result Comment: Chol less than 200 mg/dl low risk Chol 201-239 mg/dl borderline risk Chol 240 mg/dl and greater high risk Performed By: #### E SUSHIL ROA, EBS LIPID #### [facility] [address] [id number] [place] Cholesterol in HDL [Mass/Vol] 73 mg/dL Normal 35-85 [facility] Comment on above: Result Comment: HDL CHOL ATP-III CLASSIFICATION Cardiovascular Risk HDL > or equal to 60 mg/dL LOW HDL < 40 mg/dL HIGH Performed By: #### E SUSHIL CMP, EBS LIPID #### [facility] [address] [place] [address] [facility] Cholesterol.total/Janey sterol in HDL [Mass ratio] 3.1 {ratio} Normal <5.0 [facility] Comment on above: Result Comment: PERF ORMED BY: [place] [address] PATHOLOGIST GEOTHERMAL TECHNICIAN DENYS WOO M.D. Performed By: #### E BS CMP, EBS LIPID #### [facility] [address] LDL Cholesterol,Calculated 136 mg/dL High 0-100 [facility] Comment on above: Result Comment: LDL ATP III CLASSIFICATION LDL less than 100 mg/dL Optimal LDL 100-129 mg/dL Near or above optimal LDL 130-159 mg/dL Borderline high LDL 160-189 mg/dL High LDL greater than 189 mg/dL Very high Performed By: #### E BS CMP, EBS LIPID #### [facility] [address] [place] [address] Triglyceride w/Reflex 95 mg/dL Normal 35-149 [facility] Comment on above: Result Comment: TRIG ATP III CLASSIFICATION TRIG less than 150 mg/dL Normal TRIG 150-199 mg/dL Borderline high TRIG 200-500 mg/dL High TRIG greater than 500 mg/dL Very high Standard traceable to the Center for Disease Conrtrol and Prevention (CDC) test method. Performed By: #### E BS CMP, EBS LIPID #### [facility] [address] [place] [address] VLDL CHOLESTEROL 19 mg/dL Normal [facility] Comment on above: Performed By: #### E BS CMP, EBS LIPID #### [facility] [address] [place] [address] No Panel InformationOrdered By: Dom Paulino on 12-22-2021 Estimated GFR () > 60 mL/Min [facility] Comment on above: GFR estimated refere nce range: According to KDOQI guidelines, <60 ml/min/1.73m2 is sufficient to diagnose a patient with chronic kidney disease. Pharmacy Creatinine Clearance (Chem N/A [facility] Triglycerides Reflex 95 mg/dL 35-149 [facility] Comment on above: TRIG ATP III CLASSIF ICATION TRIG less than 150 mg/dL Normal TRIG 150-199 mg/dL Borderline high TRIG 200-500 mg/dL High TRIG greater than 500 mg/dL Very high Standard traceable to the Center for Disease Conrtrol and Prevention (CDC) test method. Protein [Mass/volume] in Ser um or PlasmaOrdered By: Dom Paulino on 12-22-2021 Protein [Mass/Vol] 6.2 g/dL 6.1-7.9 [facility] Serum or plasma alanine pan otransferase measurement without P-5'-P (enzymatic activiOrdered By: Dom Paulino on 12-22-2021 ALT No additional P-5'-P [Catalytic activity/Vol] 14 U/L 10-60 [facility] Serum or plasma albumin/glob ulin mass ratioOrdered By: Dom Paulino on 12-22-2021 Albumin/Globulin [Mass ratio] 1.2 {ratio} [facility] Serum or plasma alkaline nina sphatase measurement (enzymatic activity/volume)Ordered By: Dom Paulino on 12-22-2021 ALP [Catalytic activity/Vol] 48 U/L 32-92 [facility] Serum or plasma aspartate am inotransferase measurement (enzymatic activity/volume)Ordered By: Dom Paulino on 12-22-2021 AST [Catalytic activity/Vol] 15 U/L 10-42 [facility] Serum or plasma calcium dexter urement (mass/volume)Ordered By: Dom Paulino on 12-22-2021 Calcium [Mass/Vol] 9.3 mg/dL 8.2-10.2 [facility] Serum or plasma chloride glenis surement (moles/volume)Ordered By: Dom Paulino on 12-22-2021 Chloride [Moles/Vol] 101 mmol/L 95-114 [facility] Serum or plasma high density lipoprotein (HDL) cholesterol measurementOrdered By: Dom Paulino on 12-22-2021 Cholesterol in HDL [Mass/Vol] 73 mg/dL 35-85 [facility] Comment on above: HDL CHOL ATP-III CLA SSIFICATION Cardiovascular Risk HDL > or equal to 60 mg/dL LOW HDL < 40 mg/dL HIGH Serum or plasma potassium me asurement (moles/volume)Ordered By: Dom Paulino on 12-22-2021 Potassium [Moles/Vol] 3.8 mmol/L 3.5-5.1 [facility] Serum or plasma sodium measu rement (moles/volume)Ordered By: Dom Paulino on 12-22-2021 Sodium [Moles/Vol] 136 mmol/L 136-146 [facility] Serum or plasma total biliru bin measurement (mass/volume)Ordered By: Dom Paulino on 12-22-2021 Bilirubin [Mass/Vol] 0.3 mg/dL 0.3-1.2 [facility] Serum or plasma total carbon dioxide measurement (moles/volume)Ordered By: Dom Paulino on 12-22-2021 CO2 [Moles/Vol] 23.8 mmol/L 22.0-30.0 [facility] Serum or plasma total choles terol/high density lipoprotein (HDL) cholesterol mass ratOrdered By: Dom Paulino on 12-22-2021 Cholesterol.total/Janey sterol in HDL [Mass ratio] 3.1 {ratio} [facility] Serum or plasma urea nitroge n measurement (mass/volume)Ordered By: Dom Paulino on 12-22-2021 Urea nitrogen [Mass/Vol] 10 mg/dL 9-23 [facility] Outside Recordson 09-13-2021 Outside Records [id number]# 1.00[facility] Outside Recordson 08-28-2021 Outside Records [id number] #1.00[facility] Outside Records [id number] #1.00[facility] Consent Formson 07-14-2021 Consent Forms [id number] #1.00[facility] Progress Note - Nurseon Progress Note - Nurse Antigen test ordered, test resulted positive, patient informed of positive result. In house test ordered, patient informed and swabbed, specimen sent to lab. [Electronically Signed on: 07/11/2021 16:04 EST] Kamini Tovar RN [Verified on: 07/11/2021 16:04 EST] Kamini Tovar RN [facility] Progress Note - Nurse Antigen test ordered, test resulted negative, patient informed of negative result. [Electronically Signed on: 07/11/2021 11:45 EST] Kamini Tovar RN [Verified on: 07/11/2021 11:45 EST] Kamini Tovar RN [facility] Measles (Rubeola) Imon 11-28 Measles (Rubeola) Im 3.49 Normal >1.09 [facility] Comment on above: Result Comment: Interpretation: IMMUNE Reference Range: <0.91 Not Immune 0.91-1.09 Equivocal >1.09 Immune Performed By: #### M EI, JUDY, VZI, TSPOT, MEÑO #### [place] [id number] Data Entry Representative: Maury Watts MD Mumps,Immun,Abon 11-28-2020 Mumps,Immun,Ab 1.48 Normal >1.09 [facility] Comment on above: Result Comment: Interpretation: IMMUNE Reference Range: <0.91 Not Immune 0.91-1.09 Equivocal >1.09 Immune Performed By: #### M EI, JUDY, VZI, TSPOT, MEÑO #### [facility] [employer] [address] [place], [place] [id number] Data Entry Representative: Maury Watts MD T-Spoton 11-28-2020 T-Spot. TB Test Normal [facility] Comment on above: Result Comment: [facility] [employer] [address] [place] [id number] (NOTE) T-SPOT.TB Test Results --------- T-SPOT TB [...] M EI, JUDY, VZI, TSPOT, MEÑO #### [employer] [address] [place] [id number] Data Entry Representative: Maury Watts MD VZ Immunityon 11-28-2020 VZ Immunity 2.04 Normal >1.09 [facility] Comment on above: Result Comment: Interpretation: IMMUNE Reference Range: <0.91 Not Immune 0.91-1.09 Equivocal >1.09 Immune Performed By: #### M EI, JUDY, VZI, TSPOT, MEÑO #### [employer] [address] [place] [id number] Data Entry Representative: Maury Watts MD Rubella Ab, IgGon 11-25-2020 Rubella Ab, IgG 150.4 IU/mL Normal [facility] Comment on above: Result Comment: REFERENCE RANGE: <5.0 NON-REACTIVE (non-immune) 5.0 TO 9.9 EQUIVOCAL >=10.0 REACTIVE (immune) Performed By: #### M EI, JUDY, VZI, TSPOT, MEÑO #### [employer] [address] [place] [address] Data Entry Representative: Maury Watts MD Rubella antibody, IgGOrdered By: Morales Ortiz on 11-25-2020 Rubella virus IgG Ql (S) 150.4 IU/mL [facility] Phone: Comment on above: REFERENCE RANGE: <5.0 NON-REACTIVE (non-immune) 5.0 TO 9.9 EQUIVOCAL >=10.0 REACTIVE (immune) [facility] Phone: Encounters Encounter Date Encounter Type Care [...] respiratory examination DR ANGIE VIVAR . [facility] Start: 08-16-2022 End: 08-17-[address] ANGIE VIVAR . Facility:[facility] Start: 08-16-2022 End: 08-17-2022 Encounter for preprocedural respiratory examination DR ANGIE VIVAR . Facility:[facility] Start: 06-13-2022 End: 06-13-[address] ANGIE VIVAR . Facility:[facility] Start: 04-26-2022 End: 04-27-2022 ambulatory [facility] Facility:[facility] Start: 12-22-2021 End: 12-22-2021 Departed Referred [facility] [address] Start: 07-13-2021 End: 07-13-2021 ambulatory [facility] Facility:[facility] Start: 07-12-2021 End: 07-12-2021 ambulatory [facility] Facility:[facility] Start: 11-25-2020 End: 11-26-2020 ambulatory MORALES BAKERNVSOPHIA [facility] Start: 11-25-2020 End: 11-25-2020 Subsequent hospital visit by physician [facility] Laboratory Procedures Date Procedure Procedure Detail Performing Clinician Start: 11-25-2020 Antibody rubella Omkar Ortiz MD Work Phone: Plan of Treatment Date Care Activity Detail Author Start: 03-08-2021 Influenza vaccination Flu vacc ine (Season Ended) [facility] Phone: Start: 2005 COVID-19 Vaccine (1) COVID-19 Vaccin e (1) [facility] Phone: End: 11-25-2020 Mumps Antibody, IgG Mumps Antibody, IgG Lab Routine Once for 1 Occurrences starting 11/25/2020 until 11/25/2020 [facility] Phone: Comment on above: Once for 1 Occurrenc es starting 11/25/2020 until 11/25/2020 Mumps Antibody, IgG Mumps Antibo dy, IgG Lab Routine 11/25/2020 3:18 PM EDT [employer] Work Phone: End: 11-25-2020 Rubeola Antibody, IgG Rubeola Antibody, IgG Lab Routine Once for 1 Occurrences starting 11/25/2020 until 11/25/2020 [facility] Phone: Comment on above: Once for 1 Occurrenc es starting 11/25/2020 until 11/25/2020 Rubeola Antibody, IgG Rubeola An tibody, IgG Lab Routine 11/25/2020 3:18 PM EDT [facility] Phone: End: 11-25-2020 Tb antigen response gamma interferon t-cell susp T-Spot TB Test Lab Routine Once for 1 Occurrences starting 11/25/2020 until 11/25/2020 [facility] Phone: Comment on above: Once for 1 Occurrenc es starting 11/25/2020 until 11/25/2020 Tb antigen response gamma interferon t-cell susp T-Spot TB Test Lab Routine 11/25/2020 3:18 PM EDT [facility] Phone: End: 11-25-2020 Varicella Zoster Antibody, IgG Varicella Zoster Antibody, IgG Lab Routine Once for 1 Occurrences starting 11/25/2020 until 11/25/2020 [facility] Phone: Comment on above: Once for 1 Occurrenc es starting 11/25/2020 until 11/25/2020 Varicella Zoster Antibody, IgG Varicella Zoster Antibody, IgG Lab Routine 11/25/2020 3:18 PM EDT [facility] Phone: Payers Date Payer Category Payer Unknown [id number] 2020 Unknown [id number] 1995 Unknown [id number] 2.16.84 [id number] 1993 Unknown [id number] 2.16.84 0.1.116203.3.579.2.593 1993 Unknown [id number] 2.16.84 0.1.295205.3.579.2.593 1993 Unknown [id number] 2.16.84 0.1.499451.3.579.2.593 1993 Unknown [id number] 2.16.84 0.1.700134.3.579.2.9 1993 Unknown [id number] 2.16.84 0.1.552916.3.579.2.1258 1993 Unknown [id number] 2.16.84 0.1.613784.3.579.2.1258 1993 Unknown [id number] 2.16.84 0.1.310792.3.579.2.1258 1993 Unknown [id number] 2.16.84 0.1.274417.3.579.2.1258 1993 Unknown [id number] 2.16.84 0.1.588673.3.579.2.1258 1993 Unknown [id number] 2.16.84 0.1.316774.3.579.2.1258 1993 Unknown [id number] 2.16.84 0.1.872334.3.579.2.1258 1993 Unknown [id number] 2.16.840. 1.030401.3.579.2.9 1959 Unknown [id number] Self-pay Self Pay [id number] Social History Date Type Detail Facility Tobacco smoking stat [facility] Unknown if ever smoked [facility] Phone: Start: 1995 Sex Assigned At Not on file [facility] [employer] Phone: Start: 1995 Sex Assigned At Female F [facility] Clinical Note 08-23-2022 Note Date & Type Note Facility 08-23-2022 Note OPERATIVE NOTE OPERATION DATE: 08/23/2022 PROCEDURE: LEEP Procedure. PREOPERATIVE DIAGNOSIS: Cervical dysplasia. POSTOPERATIVE DIAGNOSIS: Cervical dysplasia. ANESTHESIA: General. SURGEON: Angie Vivar D.O. BOOKMOBILE LIBRARIAN: None. BLOOD LOSS: 5 mL. SPECIMEN: Ectocervical [...] to Recovery Room in stable condition. [facility] Medication management note 06-11-2022 Note Date & Type Note Facility 06-11-2022 Note Entered by Diane Wadsworth on June 11, 2022 09:44:53 EST From: Diane Wadsworth To: [id number] Sent: 06/11/2022 09:44:53 EST Subject: Medication Management Submitted: Complete:desogestrel-ethinyl estradiol (Velivet oral tablet) Signed by Diane Wadsworth 06/11/2022 09:44:00 EST Approved desogestrel-ethinyl estradiol (VELIVET 28 DAY TABLET) take 1 tablet by mouth once daily Qty: 84 tab(s) Days Supply: 84 Refills: 0 Substitutions Allowed Route To Pharmacy - [id number] Signed by Diane Wadsworth Patient matched by Diane Wadsworth on 06/11/2022 09:41:06 EST From: [id number] To: Bhavya Estrada MD Sent: June 11, 2022 8:39:02 AM [employer] Subject: Medication Management Due: June 12, 2022 12:05:33 AM [employer] On Hold Pending Signature Drug: desogestrel-ethinyl estradiol (Velivet oral tablet), take 1 tablet by mouth once daily Quantity: 84 tab(s) Days Supply: 84 Refills: 1 Substitutions Allowed Notes from Pharmacy: Dispensed Drug: desogestrel-ethinyl estradiol (Velivet oral tablet), take 1 tablet by mouth once daily Quantity: 84 tab(s) Days Supply: 84 Refills: 0 Substitutions Allowed Notes from Pharmacy: [facility] Evaluation note Note Date & Type Note Facility Evaluation note No assessment information availa [facility] Work Phone: Summary Purpose Family History [...] section and content) DATE CREATED AUTHOR 12/02/2020 [facility] DATE CREATED AUTHOR AUTHOR'S ORGANIZ ATION 12/23/2021 [facility] DATE CREATED AUTHOR AUTHOR'S ORGANIZ ATION 06/11/2022 [facility] DATE CREATED AUTHOR AUTHOR'S ORGANIZ ATION 09/05/2022 [facility] DATE CREATED AUTHOR AUTHOR'S ORGANIZ ATION 02/20/2024 [facility] EPIC Care Teams (unrecognized [...] BE BASED ON THE PRIMARY CLINICAL RECORDS. [facility]. provides no warranty or guarantee of the accuracy or completeness of information in this document.
--- NOTE | 2024-03-03 15:04 | US_ITS ---
[address] [address] Patient Name: MARISA ADAN MRN: [id number] date: 1995 Sex: F Assigned Patient Location: [facility] Current Patient Location: [facility] Accession/Order Number: [id number] Exam Date: 03/03/2024 15:05 Report Date: 03/03/2024 15:30 At the request of: ANGIE TERAN Procedure: US OB BPP w non-stress EXAMINATION: US OB BPP w non-stress HISTORY: Gestational diabetes mellitus COMPARISON: No relevant comparison available. TECHNIQUE: Ultrasound biophysical profile was performed in the radiology department. non-reactive stress testing was performed by nursing staff in the birthing center. FINDINGS: BREATHING MOVEMENTS: 2 GROSS BODY MOVEMENTS: 2 TONE: 2 QUALITATIVE AMNIOTIC FLUID VOLUME: 2 PRESENTATION: CEPHALIC HEART RATE: 139.90 bpm AMNIOTIC FLUID VOLUME: 14.3 cm GESTATIONAL AGE: 34 weeks 3 days US/US OB BPP w non-stress IMPRESSION: Total biophysical profile score: 8 Electronically authenticated by: OMID DOSS Date: 03/03/2024 15:30
[2024-03-03 15:46] VITALS: BP 138/86; PULSE 92
== END 2024-03-03 15:50 | disposition home or self-care (01) ==
LOC: US 07:32 → FBC 14:56
PROVIDERS: Visit Provider Obstetrics & Gynecology
DX: O13.9 Gestational [pregnancy-induced] hypertension without significant proteinuria, unspecified trimester (principal); O24.419 Gestational diabetes mellitus in pregnancy, unspecified control; Z3A.34 34 weeks gestation of pregnancy
CPT/HCPCS: 36415; 76818; 82565; 83615; 84450; 84520; 84550; 85025; 85610; 85730

== ENCOUNTER 2024-03-03 14:37 | Outpatient (OUT) | payer BC, SELFPAY ==
[2024-03-03 14:53] LABS: Basophils Absolute Auto 0.1 10^3/uL (0.0-0.1); Basophils Percent Auto 0.4 % (0.2-2.0); Eosinophils Absolute Auto 0.4 10^3/uL (0.0-0.7); Eosinophils Percent Auto 2.9 % (0.9-7.0); Hematocrit 38.9 % (36.0-48.0); Hemoglobin 13.4 g/dL (12.0-16.0); Immature Granulocytes Abs Auto 0.17 10^3/uL (0.00-0.03); Immature Granulocytes Pct Auto 1.4 % (0.0-0.5); Lymphocytes Absolute Auto 2.2 10^3/uL (1.2-3.8); Lymphocytes Percent Auto 18.3 % (20.5-60.0); Mean Corpuscular HGB Conc 34.4 g/dL (29.9-35.2); Mean Corpuscular Hemoglobin 32.1 pg (26.7-34.0); Mean Corpuscular Volume 93.1 fL (81.0-99.0); Mean Platelet Volume 11.7 fL (9.5-13.5); Monocytes Absolute Auto 0.9 10^3/uL (0.3-0.8); Monocytes Percent Auto 7.6 % (1.7-12.0); Neutrophils Absolute Auto 8.4 10^3/uL (1.4-6.5); Neutrophils Percent Auto 69.4 % (43.0-75.0); Platelet Count 167 10^3/uL (150-450); Red Blood Count 4.18 10^6/uL (4.20-5.40); White Blood Count 12.1 10^3/uL (4.0-11.0)
[2024-03-03 15:14] LABS: Partial Thromboplastin Time 27.6 sec (22.3-36.2); Prothrombin Time 9.8 sec (9.0-11.6)
[2024-03-03 15:16] LABS: INR <0.93
[2024-03-03 15:20] LABS: Aspartate Amino Transferase 20 U/L (15-37); Estimated GFR (African America >60 (>=60); Estimated GFR (Non-African Ame >60 (>=60); Lactate Dehydrogenase 135 U/L (81-234); Uric Acid 5.7 mg/dL (2.6-6.0)
== END 2024-03-03 14:38 | disposition home or self-care (01) ==
LOC: LAB 14:38
PROVIDERS: Visit Provider Physician Assistant
DX: O13.9 Gestational [pregnancy-induced] hypertension without significant proteinuria, unspecified trimester (principal)
CPT/HCPCS: 36415; 82565; 83615; 84450; 84520; 84550; 85025; 85610; 85730

== ENCOUNTER 2024-03-05 07:41 | Outpatient (REF) | payer BC, SELFPAY ==
--- OUTSIDE RECORDS SUMMARY | 2024-03-05 07:43 | XMS_ITS | CCD ---
Author Organization [facility] Care Team Providers Care Organ Builder Name Role Phone Unavailable Primary Care Provider UnavailMORALES Renner Referring Unavailable NON STAFF Primary Care Provider UnavailDO Dom Cerda Jr Attending Provider [phone] Bhavya Estrada Primary Care Unavailable Sean, Bhavya [...] Translations: [amoxicillin] Drug Allergy [facility] Repository (1 source) tiZANidine; Translations: [tiZANidine] Drug Allergy [facility] Repository Problems Problem Classification Problem [...] 08-23-2022 BASO # 0.1 103/ul Normal 0.0-0.1 [facility] Comment on above: Performed By: #### C BC #### [facility] [address] [place] [address] Dr. Car Lozada Basophils/100 WBC (Bld) 0.5 % Normal 0.2-2.0 [facility] Comment on above: Performed By: #### C BC #### [facility] [address] [place] [address] Dr. Car Lozada EO # 0.6 103/ul Normal 0.0-0.7 [facility] Comment on above: Performed By: #### C BC #### [facility] [address] [place] [address] Dr. Car Lozada Eosinophils/100 WBC (Bld) 5.9 % Normal 0.9-7.0 [facility] Comment on above: Performed By: #### C BC #### [facility] [address] [address] [address] Car Lozada Erythrocyte distribution width (RBC) [Ratio] 12.6 % Normal 11.0-15.0 [facility] Comment on above: Performed By: #### C BC #### [facility] [address] [place] [address] Dr. Car Lozada Hematocrit (Bld) [Volume fraction] 42.0 % Normal 36.0-48.0 [facility] Comment on above: Performed By: #### C BC #### [facility] [address] [place] [address] Dr. Car Lozada Hemoglobin (Bld) [Mass/Vol] 14.1 g/dL Normal 12.0-16.0 [facility] Comment on above: Performed By: #### C BC #### [facility] [address] [address] [address] Car Lozada IG # 0.04 10e3/ul Critically high 0.00-0.03 [facility] Comment on above: Performed By: #### C BC #### [facility] [address] [place] [address] Dr. Car Lozada IG % 0.4 % Normal 0.0-0.5 [facility] Comment on above: Performed By: #### C BC #### [facility] [address] [place] [address] Dr. Car Lozada LYMPH # 3.6 103/ul Normal 1.2-3.8 [facility] Comment on above: Performed By: #### C BC #### [facility] [address] [place] [address] Dr. Car Lozada Lymphocytes/100 WBC (Bld) 34.7 % Normal 20.5-60.0 [facility] Comment on above: Performed By: #### C BC #### [facility] [address] [place] [address] Dr. Car Lozada MANUAL DIFF REQ NO Normal [facility] Comment on above: Performed By: #### C BC #### [facility] [address] [place] [address] Dr. Car Lozada MCH (RBC) [Entitic mass] 31.2 pg Normal 26.7-34.0 [facility] Comment on above: Performed By: #### C BC #### [facility] [address] [place] [address] Dr. Car Lozada MCHC (RBC) [Mass/Vol] 33.6 g/dL Normal 29.9-35.2 [facility] Comment on above: Performed By: #### C BC #### [facility] [address] [place] [address] Dr. Car Lozada MCV (RBC) [Entitic vol] 92.9 fL Normal 81.0-99.0 [facility] Comment on above: Performed By: #### C BC #### [facility] [address] [address] [address] Car Lozada MONO # 0.9 103/ul Critically high 0.3-0.8 [facility] Comment on above: Performed By: #### C BC #### [facility] [address] [address] [address] Car Lozada Monocytes/100 WBC (Bld) 8.3 % Normal 1.7-12.0 [facility] Comment on above: Performed By: #### C BC #### [facility] [address] [place] [address] Dr. Car Lozada NEUT # 5.2 103/ul Normal 1.4-6.5 [facility] Comment on above: Performed By: #### C BC #### [facility] [address] [place] [address] Dr. Car Lozada Neutrophils/100 WBC (Bld) 50.2 % Normal 43.0-75.0 [facility] Comment on above: Performed By: #### C BC #### [facility] [address] [place] [address] Dr. Car Lozada Platelet mean volume (Bld) [Entitic vol] 10.0 fL Normal 9.5-13.5 [facility] Comment on above: Performed By: #### C BC #### [facility] [address] [place] [address] Dr. Car Lozada PLT 251 103/ul Normal 150-450 [facility] Comment on above: Performed By: #### C BC #### [facility] [address] [place] [address] Dr. Car Lozada RBC 4.52 106/ul Normal 4.20-5.40 [facility] Comment on above: Performed By: #### C BC #### [facility] [address] [place] [address] Dr. Car Lozada WBC 10.3 103/ul Normal 4.0-11.0 [facility] Comment on above: Performed By: #### C BC #### [facility] [address] [place] [address] Dr. Car Lozada PREG QUANT HCGon 08-23-2022 HCG QUANT <1 Normal [facility] Comment on above: Performed By: #### P REGQNT #### [facility] [address] [place] [address] Dr. Car Lozada HCG RANGE SEE BELOW Normal [facility] Comment on above: Result Comment: 5-50 0.2-1 WEEK 50-500 1-2 WEEKS 100-5,000 2-3 WEEKS 500-10,000 3-4 WEEKS 1,000-50,000 4-5 WEEKS 10,000-100,000 5-6 WEEKS 15,000-200,000 6-8 WEEKS 10,000-100,000 2-3 MONTHS Performed By: #### P REGQNT #### [facility] [address] [place] [address] Dr. Car Lozada XR CHEST 2 Von [...] JOSÉ MIGUEL LIMON Date: 2022-08-16 10:17 Normal [facility] PAP ACOG PANEL 2: 21 to 29on 06-25-2022 . . Normal [facility] Comment on above: Performed By: #### [id number] #### [facility] [address] [place] [address] Dr. Car Lozada Age Gdln ACOG Testing 21-29 Normal [facility] Comment on above: Performed By: #### [id number] #### [facility] [address] [place] [address] Dr. Car Lozada DIAGNOSIS: Comment Abnormal [facility] Comment on above: Result Comment: EPIT HELIAL CELL ABNORMALITY. LOW GRADE SQUAMOUS INTRAEPITHELIAL LESION (LSIL). Performed By: #### 4 [id number] #### [facility] [address] [address] [address] Car Lozada Electronically signed by: Comment Normal [facility] Comment on above: Result Comment: Phyllis Vital MD, Pathologist Performed By: #### 4 [id number] #### [facility] [address] [address] [address] Car Lozada Methodology: Comment Normal [facility] Comment on above: Result Comment: This liquid based ThinPrep(R) pap test was screened with the use of an image guided system. Performed By: #### [id number] #### [facility] [address] [place] [address] Dr. Car Lozada Note: Comment Normal [facility] Comment on above: Result Comment: The Pap smear is a screening test designed to aid in the detection of premalignant and malignant conditions of the uterine cervix. It is not a diagnostic procedure and should not be used as the sole means of detecting cervical cancer. Both false-positive and false-negative reports do occur. . Performed By: #### 4 [id number] #### [facility] [address] [place] [address] Dr. Car Lozada Pathologist Provided ICD10 Comment Normal [facility] Comment on above: Result Comment: [id number]. [id number] Performed By: #### 4 [id number] #### [facility] [address] [place] [address] Dr. Car Lozada Performed by: Comment Normal [facility] Comment on above: Result Comment: Sidney Masters, Machine Operator Hay Stacker (ASCP) Performed By: #### [id number] #### [facility] [address] [place] [address] Dr. Car Lozada Recommendation: Comment Abnormal [facility] Comment on above: Result Comment: Sugg est follow up as clinically appropriate. Performed By: #### 4 [id number] #### [facility] [address] [address] [address] Car Lozada Reflex Criteria: Comment Normal [facility] Comment on above: Result Comment: The HPV DNA reflex criteria were not met with this specimen result therefore, no HPV testing was performed. . Performed By: #### 4 [id number] #### [facility] [address] [address] [address] Car Lozada Specimen adequacy: Comment Normal [facility] Comment on above: Result Comment: Sati sfactory for evaluation. Endocervical and/or squamous metaplastic cells (endocervical component) are present. Performed By: #### 4 [id number] #### [facility] [address] [address] [address] Car Lozada Body fluid albumin measureme nt (mass/volume)Ordered By: Dom Paulino on 12-22-2021 Albumin (Body fld) [Mass/Vol] 3.4 g/dL 3.2-5.[address] [facility] Cholesterol [Mass/volume] in Serum or PlasmaOrdered By: Dom Paulino on 12-22-2021 Cholesterol [Mass/Vol] 228 mg/dL 140-200 [facility] Comment on above: Chol less than 200 m g/dl low risk Chol 201-239 mg/dl borderline risk Chol 240 mg/dl and greater high risk Cholesterol in LDL Calc [Mas s/Vol]Ordered By: Dom Paulino on 12-22-2021 Cholesterol in LDL [Mass/Vol] 136 mg/dL 0-[address] [facility] Comment on above: LDL ATP III CLASSIFI CATION LDL less than 100 mg/dL Optimal LDL 100-129 mg/dL Near or above optimal LDL 130-159 mg/dL Borderline high LDL 160-189 mg/dL High LDL greater than 189 mg/dL Very high Cholesterol in VLDL Calc [Ma ss/Vol]Ordered By: Dom Paulino on 12-22-2021 Cholesterol in VLDL [Mass/Vol] 19 mg/dL [facility] Comprehensive Metabolic Empo n 12-22-2021 Albumin [Mass/Vol] 3.4 g/dL Normal 3.2-5.5 [facility] Comment on above: Performed By: #### E BS CMP, EBS LIPID #### [address] Albumin/Globulin [Mass ratio] 1.2 {ratio} Normal [facility] Comment on above: Performed By: #### E BS CMP, EBS LIPID #### [address] ALP [Catalytic activity/Vol] 48 U/L Normal 32-[address] [facility] Comment on above: Performed By: #### E BS CMP, EBS LIPID #### [address] ALT [Catalytic activity/Vol] 14 U/L Normal 10-[address] [facility] Comment on above: Performed By: #### E BS CMP, EBS LIPID #### [address] AST [Catalytic activity/Vol] 15 U/L Normal 10-[address] [facility] Comment on above: Performed By: #### E BS CMP, EBS LIPID #### [address] Bilirubin [Mass/Vol] 0.3 mg/dL Normal 0.3-1.2 [facility] Comment on above: Performed By: #### E BS CMP, EBS LIPID #### [address] Calcium [Mass/Vol] 9.3 mg/dL Normal 8.2-10.2 [facility] Comment on above: Performed By: #### E BS CMP, EBS LIPID #### [address] Chloride [Moles/Vol] 101 mmol/L Normal 95-114 [facility] Comment on above: Performed By: #### E BS CMP, EBS LIPID #### [facility] [address] [place] [address] [place] CO2 [Moles/Vol] 23.8 mmol/L Normal 22.0-30.0 [facility] Comment on above: Performed By: #### E BS CMP, EBS LIPID #### [facility] [address] [place] [address] [place] Creatinine [Mass/Vol] 0.79 mg/dL Normal 0.44-1.03 [facility] Comment on above: Performed By: #### E BS CMP, EBS LIPID #### [facility] [address] Estimated GFR ( Aleena > 60 [facility] Comment on above: Result Comment: GFR estimated reference range: According to KDOQI guidelines, <60 ml/min/1.73m2 is sufficient to diagnose a patient with chronic kidney disease. Performed By: #### E BS CMP, EBS LIPID #### [facility] [address] Estimated GFR (Non- Am > 60 [facility] Comment on above: Performed By: #### E BS CMP, EBS LIPID #### [address] Globulin (S) [Mass/Vol] 2.8 g/dL Normal [facility] Comment on above: Performed By: #### E BS CMP, EBS LIPID #### [address] Glucose [Mass/Vol] 76 mg/dL Normal 70-100 [facility] Comment on above: Performed By: #### E BS CMP, EBS LIPID #### [address] Potassium [Moles/Vol] 3.8 mmol/L Normal 3.5-5.1 [facility] Comment on above: Performed By: #### E BS CMP, EBS LIPID #### [facility] [address] [place] [address] Protein [Mass/Vol] 6.2 g/dL Normal 6.1-7.9 [facility] Comment on above: Performed By: #### E BS CMP, EBS LIPID #### [address] Sodium [Moles/Vol] 136 mmol/L Normal 136-146 [facility] Comment on above: Performed By: #### E BS CMP, EBS LIPID #### [facility] [address] [place] [address] [place] Urea nitrogen [Mass/Vol] 10 mg/dL Normal 9-[address] [facility] Comment on above: Performed By: #### E SUSHIL ROA EBS LIPID #### [facility] [address] [id number] [facility] Creatinine and Glomerular fi ltration rate.predicted panel (S/P/Bld)Ordered By: Dom Paulino on 12-22-2021 Creatinine [Mass/Vol] 0.79 mg/dL 0.44-1.03 [facility] Estimated glomerular filtrat ion rate (GFR) non- AmericanOrdered By: Dom Paulino on 12-22-2021 GFR/1.73 sq M.predicted among non-blacks MDRD (S/P/Bld) [Vol rate/Area] > 60 mL/Min [facility] Globulin Calc (S) [Mass/Vol] Ordered By: Dom Paulino on 12-22-2021 Globulin (S) [Mass/Vol] 2.8 g/dL [facility] - Chemistry and C hemistry - challengeOrdered By: Dom Paulino on 12-22-2021 Glucose [Mass/Vol] 76 mg/dL 70-100 [facility] Lipid Profileon 12-22-2021 Cholesterol [Mass/Vol] 228 mg/dL High 140-200 [facility] Comment on above: Result Comment: Chol less than 200 mg/dl low risk Chol 201-239 mg/dl borderline risk Chol 240 mg/dl and greater high risk Performed By: #### E SUSHIL ROA, EBS LIPID #### [facility] [address] [id number] [place] Cholesterol in HDL [Mass/Vol] 73 mg/dL Normal 35-[address] [facility] Comment on above: Result Comment: HDL CHOL ATP-III CLASSIFICATION Cardiovascular Risk HDL > or equal to 60 mg/dL LOW HDL < 40 mg/dL HIGH Performed By: #### E SUSHIL CMP, EBS LIPID #### [facility] [address] [place] [address] [facility] Cholesterol.total/Janey sterol in HDL [Mass ratio] 3.1 {ratio} Normal <5.[address] [facility] Comment on above: Result Comment: PERF ORMED BY: [place] [address] PATHOLOGIST ELECTRICAL TRANSMISSION ENGINEER DENYS WOO M.D. Performed By: #### E BS CMP, EBS LIPID #### [facility] [address] LDL Cholesterol,Calculated 136 mg/dL High 0-[address] [facility] Comment on above: Result Comment: LDL ATP III CLASSIFICATION LDL less than 100 mg/dL Optimal LDL 100-129 mg/dL Near or above optimal LDL 130-159 mg/dL Borderline high LDL 160-189 mg/dL High LDL greater than 189 mg/dL Very high Performed By: #### E BS CMP, EBS LIPID #### [facility] [address] [place] [address] Triglyceride w/Reflex 95 mg/dL Normal 35-149 [facility] Comment on above: Result Comment: TRIG ATP III CLASSIFICATION TRIG less than 150 mg/dL Normal TRIG 150-199 mg/dL Borderline high TRIG 200-500 mg/dL High TRIG greater than 500 mg/dL Very high Standard traceable to the Center for Disease Conrtrol and Prevention (CDC) test method. Performed By: #### E BS CMP, EBS LIPID #### [facility] [address] [place] [address] VLDL CHOLESTEROL 19 mg/dL Normal [facility] Comment on above: Performed By: #### E BS CMP, EBS LIPID #### [facility] [address] [place] [address] No Panel InformationOrdered By: Dom Paulino on 12-22-2021 Estimated GFR () > 60 mL/Min [facility] Comment on above: GFR estimated refere nce range: According to KDOQI guidelines, <60 ml/min/1.73m2 is sufficient to diagnose a patient with chronic kidney disease. Pharmacy Creatinine Clearance (Chem N/A [facility] Triglycerides Reflex 95 mg/dL 35-149 [facility] Comment on above: TRIG ATP III CLASSIF ICATION TRIG less than 150 mg/dL Normal TRIG 150-199 mg/dL Borderline high TRIG 200-500 mg/dL High TRIG greater than 500 mg/dL Very high Standard traceable to the Center for Disease Conrtrol and Prevention (CDC) test method. Protein [Mass/volume] in Ser um or PlasmaOrdered By: Dom Paulino on 12-22-2021 Protein [Mass/Vol] 6.2 g/dL 6.1-7.9 [facility] Serum or plasma alanine pan otransferase measurement without P-5'-P (enzymatic activiOrdered By: Dom Paulino on 12-22-2021 ALT No additional P-5'-P [Catalytic activity/Vol] 14 U/L 10-[address] [facility] Serum or plasma albumin/glob ulin mass ratioOrdered By: Dom Paulino on 12-22-2021 Albumin/Globulin [Mass ratio] 1.2 {ratio} [facility] Serum or plasma alkaline nina sphatase measurement (enzymatic activity/volume)Ordered By: Dom Paulino on 12-22-2021 ALP [Catalytic activity/Vol] 48 U/L 32-[address] [facility] Serum or plasma aspartate am inotransferase measurement (enzymatic activity/volume)Ordered By: Dom Paulino on 12-22-2021 AST [Catalytic activity/Vol] 15 U/L 10-[address] [facility] Serum or plasma calcium dexter urement (mass/volume)Ordered By: Dom Paulino on 12-22-2021 Calcium [Mass/Vol] 9.3 mg/dL 8.2-10.2 [facility] Serum or plasma chloride glenis surement (moles/volume)Ordered By: Dom Paulino on 12-22-2021 Chloride [Moles/Vol] 101 mmol/L 95-114 [facility] Serum or plasma high density lipoprotein (HDL) cholesterol measurementOrdered By: Dom Paulino on 12-22-2021 Cholesterol in HDL [Mass/Vol] 73 mg/dL 35-[address] [facility] Comment on above: HDL CHOL ATP-III CLA SSIFICATION Cardiovascular Risk HDL > or equal to 60 mg/dL LOW HDL < 40 mg/dL HIGH Serum or plasma potassium me asurement (moles/volume)Ordered By: Dom Paulino on 12-22-2021 Potassium [Moles/Vol] 3.8 mmol/L 3.5-5.1 [facility] Serum or plasma sodium measu rement (moles/volume)Ordered By: Dom Paulino on 12-22-2021 Sodium [Moles/Vol] 136 mmol/L 136-146 [facility] Serum or plasma total biliru bin measurement (mass/volume)Ordered By: Dom Paulino on 12-22-2021 Bilirubin [Mass/Vol] 0.3 mg/dL 0.3-1.2 [facility] Serum or plasma total carbon dioxide measurement (moles/volume)Ordered By: Dom Paulino on 12-22-2021 CO2 [Moles/Vol] 23.8 mmol/L 22.0-30.0 [facility] Serum or plasma total choles terol/high density lipoprotein (HDL) cholesterol mass ratOrdered By: Dom Paulino on 12-22-2021 Cholesterol.total/Janey sterol in HDL [Mass ratio] 3.1 {ratio} [facility] Serum or plasma urea nitroge n measurement (mass/volume)Ordered By: Dom Paulino on 12-22-2021 Urea nitrogen [Mass/Vol] 10 mg/dL 9-[address] [facility] Outside Recordson 09-13-2021 Outside Records [id number]# 1.00[facility] Outside Recordson 08-28-2021 Outside Records [id number] #1.00[facility] Outside Records [id number] #1.00[facility] Consent Formson 07-14-2021 Consent Forms [id number] #1.00[facility] Progress Note - Nurseon Progress Note - Nurse Antigen test ordered, test resulted positive, patient informed of positive result. In house test ordered, patient informed and swabbed, specimen sent to lab. [Electronically Signed on: 07/11/2021 16:04 EST] Kamini Tovar RN [Verified on: 07/11/2021 16:04 EST] Kamini Tovar RN [facility] Progress Note - Nurse Antigen test ordered, test resulted negative, patient informed of negative result. [Electronically Signed on: 07/11/2021 11:45 EST] Kamini Tovar RN [Verified on: 07/11/2021 11:45 EST] Kamini Tovar RN [facility] Measles (Rubeola) Imon 11-28 Measles (Rubeola) Im 3.49 Normal >1.09 [facility] Comment on above: Result Comment: Interpretation: IMMUNE Reference Range: <0.91 Not Immune 0.91-1.09 Equivocal >1.09 Immune Performed By: #### M EI, JUDY, VZI, TSPOT, MEÑO #### [place] [id number] [employer] Manager: Maury Watts MD Mumps,Immun,Abon 11-28-2020 Mumps,Immun,Ab 1.48 Normal >1.09 [facility] Comment on above: Result Comment: Interpretation: IMMUNE Reference Range: <0.91 Not Immune 0.91-1.09 Equivocal >1.09 Immune Performed By: #### M EI, JUDY, VZI, TSPOT, MEÑO #### [facility] [address] [place], [place] [address] [employer] Manager: Maury Watts MD T-Spoton 11-28-2020 T-Spot. TB Test Normal [facility] Comment on above: Result Comment: [facility] [employer] [address] [place] [phone] (NOTE) T-SPOT.TB Test Results --------- T-SPOT TB [...] M EI, JUDY, VZI, TSPOT, MEÑO #### [facility] [employer] [address] [place] [id number] [employer] Manager: Maury Watts MD VZ Immunityon 11-28-2020 VZ Immunity 2.04 Normal >1.09 [facility] Comment on above: Result Comment: Interpretation: IMMUNE Reference Range: <0.91 Not Immune 0.91-1.09 Equivocal >1.09 Immune Performed By: #### M EI, JUDY, VZI, TSPOT, MEÑO #### [employer] [address] [place] [id number] [employer] Manager: Maury Watts MD Rubella Ab, IgGon 11-25-2020 Rubella Ab, IgG 150.4 IU/mL Normal [facility] Comment on above: Result Comment: REFERENCE RANGE: <5.0 NON-REACTIVE (non-immune) 5.0 TO 9.9 EQUIVOCAL >=10.0 REACTIVE (immune) Performed By: #### M EI, JUDY, VZI, TSPOT, MEÑO #### [facility] [employer] [address] [place] [address] [employer] Manager: Maury Watts MD Rubella antibody, IgGOrdered By: Morales Ortiz on 11-25-2020 Rubella virus IgG Ql (S) 150.4 IU/mL [employer] Phone: Comment on above: REFERENCE RANGE: <5.0 NON-REACTIVE (non-immune) 5.0 TO 9.9 EQUIVOCAL >=10.0 REACTIVE (immune) [employer] Phone: Encounters Encounter Date Encounter Type Care [...] respiratory examination DR ANGIE VIVAR . [facility] Start: 08-16-2022 End: 08-17-[address] ANGIE VIVAR . Facility:[facility] Start: 08-16-2022 End: 08-17-2022 Encounter for preprocedural respiratory examination DR ANGIE VIVAR . Facility:[facility] Start: 06-13-2022 End: 06-13-[address] ANGIE VIVAR . Facility:[facility] Start: 04-26-2022 End: 04-27-2022 ambulatory [facility] Facility:[facility] Start: 12-22-2021 End: 12-22-2021 Departed Referred [facility] [address] Start: 07-13-2021 End: 07-13-2021 ambulatory [facility] Facility:[facility] Start: 07-12-2021 End: 07-12-2021 ambulatory [facility] Facility:[facility] Start: 11-25-2020 End: 11-26-2020 ambulatory MORALES BAKERCOSOPHIA [facility] Start: 11-25-2020 End: 11-25-2020 Subsequent hospital visit by physician [facility] Laboratory Procedures Date Procedure Procedure Detail Performing Clinician Start: 11-25-2020 Antibody rubella Omkar Ortiz MD Work Phone: Plan of Treatment Date Care Activity Detail Author Start: 03-08-2021 Influenza vaccination Flu vacc ine (Season Ended) [employer] Phone: Start: 2005 COVID-19 Vaccine (1) COVID-19 Vaccin e (1) [employer] Phone: End: 11-25-2020 Mumps Antibody, IgG Mumps Antibody, IgG Lab Routine Once for 1 Occurrences starting 11/25/2020 until 11/25/2020 [employer] Phone: Comment on above: Once for 1 Occurrenc es starting 11/25/2020 until 11/25/2020 Mumps Antibody, IgG Mumps Antibo dy, IgG Lab Routine 11/25/2020 3:18 PM EDT [employer] Work Phone: End: 11-25-2020 Rubeola Antibody, IgG Rubeola Antibody, IgG Lab Routine Once for 1 Occurrences starting 11/25/2020 until 11/25/2020 [employer] Phone: Comment on above: Once for 1 Occurrenc es starting 11/25/2020 until 11/25/2020 Rubeola Antibody, IgG Rubeola An tibody, IgG Lab Routine 11/25/2020 3:18 PM EDT [employer] Phone: End: 11-25-2020 Tb antigen response gamma interferon t-cell susp T-Spot TB Test Lab Routine Once for 1 Occurrences starting 11/25/2020 until 11/25/2020 [employer] Phone: Comment on above: Once for 1 Occurrenc es starting 11/25/2020 until 11/25/2020 Tb antigen response gamma interferon t-cell susp T-Spot TB Test Lab Routine 11/25/2020 3:18 PM EDT [employer] Phone: End: 11-25-2020 Varicella Zoster Antibody, IgG Varicella Zoster Antibody, IgG Lab Routine Once for 1 Occurrences starting 11/25/2020 until 11/25/2020 [employer] Phone: Comment on above: Once for 1 Occurrenc es starting 11/25/2020 until 11/25/2020 Varicella Zoster Antibody, IgG Varicella Zoster Antibody, IgG Lab Routine 11/25/2020 3:18 PM EDT [employer] Phone: Payers Date Payer Category Payer Unknown [id number] 2020 Unknown [id number] 1993 Unknown [id number] 2.16.84 [id number] 1993 Unknown [id number] 2.16.84 0.1.805726.3.579.2.593 1993 Unknown [id number] 2.16.84 0.1.279038.3.579.2.593 1993 Unknown [id number] 2.16.84 0.1.407313.3.579.2.593 1993 Unknown [id number] 2.16.84 0.1.295587.3.579.2.9 1993 Unknown [id number] 2.16.84 0.1.502738.3.579.2.1258 1993 Unknown [id number] 2.16.84 0.1.794086.3.579.2.1258 1993 Unknown [id number] 2.16.84 0.1.678398.3.579.2.1258 1993 Unknown [id number] 2.16.84 0.1.684438.3.579.2.1258 1993 Unknown [id number] 2.16.84 0.1.207757.3.579.2.1258 1993 Unknown [id number] 2.16.84 0.1.453716.3.579.2.1258 1993 Unknown [id number] 2.16.84 0.1.291753.3.579.2.1258 1993 Unknown [id number] 2.16.840. [id number] 1959 Unknown [id number] Self-pay Self Pay [id number] Social History Date Type Detail Facility Tobacco smoking stat [facility] Unknown if ever smoked [employer] Phone: Start: 1995 Sex Assigned At Not on file [facility] [facility] Phone: Start: 1995 Sex Assigned At Female [facility] Clinical Note 08-23-2022 Note Date & Type Note Facility 08-23-2022 Note OPERATIVE NOTE OPERATION DATE: 08/23/2022 PROCEDURE: LEEP Procedure. PREOPERATIVE DIAGNOSIS: Cervical dysplasia. POSTOPERATIVE DIAGNOSIS: Cervical dysplasia. ANESTHESIA: General. SURGEON: Angie Vivar D.O. SATELLITE COMMUNICATIONS OPERATOR: None. BLOOD LOSS: 5 mL. SPECIMEN: [...] to Recovery Room in stable condition. [facility] Medication management note 06-11-2022 Note Date & Type Note Facility 06-11-2022 Note Entered by Diane Wadsworth on June 11, 2022 09:44:53 EST From: Diane Wadsworth To: [id number] Sent: 06/11/2022 09:44:53 EST Subject: Medication Management Submitted: Complete:desogestrel-ethinyl estradiol (Velivet oral tablet) Signed by Diane Wadsworth 06/11/2022 09:44:00 EST Approved desogestrel-ethinyl estradiol (VELIVET 28 DAY TABLET) take 1 tablet by mouth once daily Qty: 84 tab(s) Days Supply: 84 Refills: 0 Substitutions Allowed Route To [facility]acy - [id number] Signed by Diane Wadsworth Patient matched by Diane Wadsworth on 06/11/2022 09:41:06 EST From: [id number] To: Bhavya Estrada MD Sent: June 11, 2022 8:39:02 AM SOLE MOLDER Subject: Medication Management Due: June 12, 2022 12:05:33 AM SOLE MOLDER On Hold Pending Signature Drug: desogestrel-ethinyl estradiol (Velivet oral tablet), take 1 tablet by mouth once daily Quantity: 84 tab(s) Days Supply: 84 Refills: 1 Substitutions Allowed Notes from Pharmacy: Dispensed Drug: desogestrel-ethinyl estradiol (Velivet oral tablet), take 1 tablet by mouth once daily Quantity: 84 tab(s) Days Supply: 84 Refills: 0 Substitutions Allowed Notes from Pharmacy: [facility] Evaluation note Note Date & Type Note Facility Evaluation note No assessment information availa [facility] Work Phone: Summary Purpose Family [...] section and content) DATE CREATED AUTHOR 12/02/2020 [facility] DATE CREATED AUTHOR AUTHOR'S ORGANIZ ATION 12/23/2021 [facility] DATE CREATED AUTHOR AUTHOR'S ORGANIZ ATION 06/11/2022 [facility] DATE CREATED AUTHOR AUTHOR'S ORGANIZ ATION 09/05/2022 [facility] DATE CREATED AUTHOR AUTHOR'S ORGANIZ ATION 02/20/2024 [facility] [employer] Care Teams (unrecognized [...] BE BASED ON THE PRIMARY CLINICAL RECORDS. [facility]. provides no warranty or guarantee of the accuracy or completeness of information in this document.
[2024-03-05 08:29] LABS: Total Protein 24 Hour Urine 238.5 mg/24hr (<=149.1); Total Volume 24 Hour Urine 2650 mL/24hr
== END 2024-03-05 07:42 | disposition home or self-care (01) ==
LOC: LAB 07:41
PROVIDERS: Visit Provider Physician Assistant
DX: O13.9 Gestational [pregnancy-induced] hypertension without significant proteinuria, unspecified trimester (principal)
CPT/HCPCS: 81050; 84156

== ENCOUNTER 2024-03-06 06:59 | Outpatient (OUT) | payer BC, SELFPAY ==
--- OUTSIDE RECORDS SUMMARY | 2024-03-06 07:02 | XMS_ITS | CCD ---
Author Organization [facility] Care Team Providers Care Stiff Neck Loader Name Role Phone Unavailable Primary Care Provider UnavailMORALES Renner Referring Unavailable NON STAFF Primary Care Provider UnavailDO Dom Cerda Jr Attending Provider [phone] Bhavya Estrada Primary Care Unavailable Bhavya Estrada [...] Unavailable JEFFRY ., DR ADAMS Admitting Unavailable JEFFRYANGIE Attending Unavailable JEFFRY, ANGIE Attending Unavailable JEFFRYANGIE Attending Unavailable JEFFRY, ANGIE Attending Unavailable JEFFRY, ANGIE Attending Unavailable VANESA ROSAS Attending Unavailable JEFFRY, ANGIE Attending Unavailable VANESA ROSAS Attending Unavailable JEFFRYANGIE Attending Unavailable Allergies Allergy Classification Reported Allergen(s) Allergy Type Date of Onset Reaction(s) Facility (2 sources) Amoxicillin; Translations: [amoxicillin] Drug Allergy [facility] Repository (1 source) tiZANidine; Translations: [tiZANidine] Drug Allergy [facility] Repository Problems Problem Classification Problem [...] 08-23-2022 BASO # 0.1 103/ul Normal 0.0-0.1 [facility] Comment on above: Performed By: #### C BC #### [facility] [address] [place] [address] Dr. Car Lozada Basophils/100 WBC (Bld) 0.5 % Normal 0.2-2.[address] [facility] Comment on above: Performed By: #### C BC #### [facility] [address] [place] [address] Dr. Cra Lozada EO # 0.6 103/ul Normal 0.0-0.7 [facility] Comment on above: Performed By: #### C BC #### [facility] [address] [place] [address] Dr. Car Lozada Eosinophils/100 WBC (Bld) 5.9 % Normal 0.9-7.0 [facility] Comment on above: Performed By: #### C BC #### [facility] [address] [place] [address] Dr. Car Lozada Erythrocyte distribution width (RBC) [Ratio] 12.6 % Normal 11.0-15.0 [facility] Comment on above: Performed By: #### C BC #### [facility] [address] [place] [address] Dr. Car Lozada Hematocrit (Bld) [Volume fraction] 42.0 % Normal 36.0-48.0 [facility] Comment on above: Performed By: #### C BC #### [facility] [address] [address] [address] Car Lozada Hemoglobin (Bld) [Mass/Vol] 14.1 g/dL Normal 12.0-16.0 [facility] Comment on above: Performed By: #### C BC #### [facility] [address] [address] [address] Car Lozada IG # 0.04 10e3/ul Critically high 0.00-0.03 [facility] Comment on above: Performed By: #### C BC #### [facility] [address] [place] [address] Dr. Car Lozada IG % 0.4 % Normal 0.0-0.5 [facility] Comment on above: Performed By: #### C BC #### [facility] [address] [place] [address] Dr. Car Lozada LYMPH # 3.6 103/ul Normal 1.2-3.[address] [facility] Comment on above: Performed By: #### C BC #### [facility] [address] [place] [address] Dr. Car Lozada Lymphocytes/100 WBC (Bld) 34.7 % Normal 20.5-60.0 [facility] Comment on above: Performed By: #### C BC #### [facility] [address] [place] [address] Dr. Car Lozada MANUAL DIFF REQ NO Normal [facility] Comment on above: Performed By: #### C BC #### [facility] [address] [place] [address] Dr. Car Lozada MCH (RBC) [Entitic mass] 31.2 pg Normal 26.7-34.0 [facility] Comment on above: Performed By: #### C BC #### [facility] [address] [place] [address] Dr. Car Lozada MCHC (RBC) [Mass/Vol] 33.6 g/dL Normal 29.9-35.2 [facility] Comment on above: Performed By: #### C BC #### [facility] [address] [place] [address] Dr. Car Lozada MCV (RBC) [Entitic vol] 92.9 fL Normal 81.0-99.[address] [facility] Comment on above: Performed By: #### C BC #### [facility] [address] [place] [address] Dr. Car Lozada MONO # 0.9 103/ul Critically high 0.3-0.8 [facility] Comment on above: Performed By: #### C BC #### [facility] [address] [place] [address] Dr. Car Lozada Monocytes/100 WBC (Bld) 8.3 % Normal 1.7-12.[address] [facility] Comment on above: Performed By: #### C BC #### [facility] [address] [place] [address] Dr. Car Lozada NEUT # 5.2 103/ul Normal 1.4-6.5 [facility] Comment on above: Performed By: #### C BC #### [facility] [address] [place] [address] Dr. Car Lozada Neutrophils/100 WBC (Bld) 50.2 % Normal 43.0-75.0 [facility] Comment on above: Performed By: #### C BC #### [facility] [address] [place] [address] Dr. Car Lozada Platelet mean volume (Bld) [Entitic vol] 10.0 fL Normal 9.5-13.5 [facility] Comment on above: Performed By: #### C BC #### [facility] [address] [place] [address] Dr. Car Lozada PLT 251 103/ul Normal 150-[address] [facility] Comment on above: Performed By: #### C BC #### [facility] [address] [place] [address] Dr. Car Lozada RBC 4.52 106/ul Normal 4.20-5.40 [facility] Comment on above: Performed By: #### C BC #### [facility] [address] [place] [address] Dr. Car Lozada WBC 10.3 103/ul Normal 4.0-11.0 [facility] Comment on above: Performed By: #### C BC #### [facility] [address] [place] [address] Dr. Car Lozada PREG QUANT HCGon 08-23-2022 HCG QUANT <1 Normal [facility] Comment on above: Performed By: #### P REGQNT #### [facility] [address] [place] [address] Dr. Car Lozada HCG RANGE SEE BELOW Normal [facility] Comment on above: Result Comment: 5-50 0.2-1 WEEK 50-500 1-2 WEEKS 100-5,000 2-3 WEEKS 500-10,000 3-4 WEEKS 1,000-50,000 4-5 WEEKS 10,000-100,000 5-6 WEEKS 15,000-200,000 6-8 WEEKS 10,000-100,000 2-3 MONTHS Performed By: #### P REGQNT #### [facility] [address] [place] [address] Dr. Car Lozada XR CHEST 2 Von [...] JOSÉ MIGUEL LIMON Date: 2022-08-16 10:17 Normal [facility] PAP ACOG PANEL 2: 21 to 29on 06-25-2022 . . Normal [facility] Comment on above: Performed By: #### [id number] #### [facility] [address] [place] [address] Dr. Car Lozada Age Gdln ACOG Testing 21-29 Normal [facility] Comment on above: Performed By: #### [id number] #### [facility] [address] [place] [address] Dr. Car Lozada DIAGNOSIS: Comment Abnormal [facility] Comment on above: Result Comment: EPIT HELIAL CELL ABNORMALITY. LOW GRADE SQUAMOUS INTRAEPITHELIAL LESION (LSIL). Performed By: #### [id number] #### [facility] [address] [place] [address] Dr. Car Lozada Electronically signed by: Comment Normal [facility] Comment on above: Result Comment: Phyllis Vital MD, Pathologist Performed By: #### 4 [id number] #### [facility] [address] [address] [address] Car Lozada Methodology: Comment Normal [facility] Comment on above: Result Comment: This liquid based ThinPrep(R) pap test was screened with the use of an image guided system. Performed By: #### [id number] #### [facility] [address] [place] [address] Dr. Car Lozada Note: Comment Normal [facility] Comment on above: Result Comment: The Pap smear is a screening test designed to aid in the detection of premalignant and malignant conditions of the uterine cervix. It is not a diagnostic procedure and should not be used as the sole means of detecting cervical cancer. Both false-positive and false-negative reports do occur. . Performed By: #### [id number] #### [facility] [address] [place] [address] Dr. Car Lozada Pathologist Provided ICD10 Comment Normal [facility] Comment on above: Result Comment: [id number] Performed By: #### 4 [id number] #### [facility] [address] [place] [address] Dr. Car Lozada Performed by: Comment Normal [facility] Comment on above: Result Comment: Sidney Masters, Acute Care Nursing Assistant (ASCP) Performed By: #### [id number] #### [facility] [address] [place] [address] Dr. Car Lozada Recommendation: Comment Abnormal [facility] Comment on above: Result Comment: Sugg est follow up as clinically appropriate. Performed By: #### [id number] #### [facility] [address] [address] [address] Car Lozada Reflex Criteria: Comment Normal [facility] Comment on above: Result Comment: The HPV DNA reflex criteria were not met with this specimen result therefore, no HPV testing was performed. . Performed By: #### 4 [id number] #### [facility] [address] [address] [address] Car Lozada Specimen adequacy: Comment Normal [facility] Comment on above: Result Comment: Sati sfactory for evaluation. Endocervical and/or squamous metaplastic cells (endocervical component) are present. Performed By: #### 4 [id number] #### [facility] [address] [address] [address] Car Lozada Body fluid albumin measureme nt (mass/volume)Ordered By: Dom Paulino on 12-22-2021 Albumin (Body fld) [Mass/Vol] 3.4 g/dL 3.2-5.5 [facility] Cholesterol [Mass/volume] in Serum or PlasmaOrdered By: Dom Paulino on 12-22-2021 Cholesterol [Mass/Vol] 228 mg/dL 140-200 [facility] Comment on above: Chol less than 200 m g/dl low risk Chol 201-239 mg/dl borderline risk Chol 240 mg/dl and greater high risk Cholesterol in LDL Calc [Mas s/Vol]Ordered By: Dom Paulino on 12-22-2021 Cholesterol in LDL [Mass/Vol] 136 mg/dL 0-100 [facility] Comment on above: LDL ATP III CLASSIFI CATION LDL less than 100 mg/dL Optimal LDL 100-129 mg/dL Near or above optimal LDL 130-159 mg/dL Borderline high LDL 160-189 mg/dL High LDL greater than 189 mg/dL Very high Cholesterol in VLDL Calc [Ma ss/Vol]Ordered By: Dom Paulino on 12-22-2021 Cholesterol in VLDL [Mass/Vol] 19 mg/dL [facility] Comprehensive Metabolic Empo n 12-22-2021 Albumin [Mass/Vol] 3.4 g/dL Normal 3.2-5.5 [facility] Comment on above: Performed By: #### E BS CMP, EBS LIPID #### [facility] [address] Albumin/Globulin [Mass ratio] 1.2 {ratio} Normal [facility] Comment on above: Performed By: #### E BS CMP, EBS LIPID #### [facility] [address] ALP [Catalytic activity/Vol] 48 U/L Normal 32-92 [facility] Comment on above: Performed By: #### E BS CMP, EBS LIPID #### [facility] [address] ALT [Catalytic activity/Vol] 14 U/L Normal 10-60 [facility] Comment on above: Performed By: #### E BS CMP, EBS LIPID #### [address] AST [Catalytic activity/Vol] 15 U/L Normal 10-42 [facility] Comment on above: Performed By: #### E BS CMP, EBS LIPID #### [address] Bilirubin [Mass/Vol] 0.3 mg/dL Normal 0.3-1.2 [facility] Comment on above: Performed By: #### E BS CMP, EBS LIPID #### [address] Calcium [Mass/Vol] 9.3 mg/dL Normal 8.2-10.2 [facility] Comment on above: Performed By: #### E BS CMP, EBS LIPID #### [facility] [address] [place] [address] [place] Chloride [Moles/Vol] 101 mmol/L Normal 95-114 [facility] Comment on above: Performed By: #### E BS CMP, EBS LIPID #### [facility] [address] [place] [address] [place] CO2 [Moles/Vol] 23.8 mmol/L Normal 22.0-30.0 [facility] Comment on above: Performed By: #### E BS CMP, EBS LIPID #### [facility] [address] [place] [address] [place] Creatinine [Mass/Vol] 0.79 mg/dL Normal 0.44-1.03 [facility] Comment on above: Performed By: #### E BS CMP, EBS LIPID #### [facility] [address] Estimated GFR ( Aleena > 60 Normal [facility] Comment on above: Result Comment: GFR estimated reference range: According to KDOQI guidelines, <60 ml/min/1.73m2 is sufficient to diagnose a patient with chronic kidney disease. Performed By: #### E BS CMP, EBS LIPID #### [facility] [address] Estimated GFR (Non- Am > 60 [facility] Comment on above: Performed By: #### E BS CMP, EBS LIPID #### [facility] [address] [place] [address] Globulin (S) [Mass/Vol] 2.8 g/dL Normal [facility] Comment on above: Performed By: #### E BS CMP, EBS LIPID #### [facility] [address] [place] [address] Glucose [Mass/Vol] 76 mg/dL Normal 70-100 [facility] Comment on above: Performed By: #### E BS CMP, EBS LIPID #### [facility] [address] [place] [address] Potassium [Moles/Vol] 3.8 mmol/L Normal 3.5-5.1 [facility] Comment on above: Performed By: #### E BS CMP, EBS LIPID #### [facility] [address] [place] [address] Protein [Mass/Vol] 6.2 g/dL Normal 6.1-7.9 [facility] Comment on above: Performed By: #### E BS CMP, EBS LIPID #### [facility] [address] [place] [address] Sodium [Moles/Vol] 136 mmol/L Normal 136-146 [facility] Comment on above: Performed By: #### E BS CMP, EBS LIPID #### [facility] [address] [place] [address] [place] Urea nitrogen [Mass/Vol] 10 mg/dL Normal 9-23 [facility] Comment on above: Performed By: #### E SUSHIL ROA, EBS LIPID #### [facility] [address] [place] [address] [place] Creatinine and Glomerular fi ltration rate.predicted panel (S/P/Bld)Ordered By: Dom Paulino on 12-22-2021 Creatinine [Mass/Vol] 0.79 mg/dL 0.44-1.03 [facility] Estimated glomerular filtrat ion rate (GFR) non- AmericanOrdered By: Dom Paulino on 12-22-2021 GFR/1.73 sq M.predicted among non-blacks MDRD (S/P/Bld) [Vol rate/Area] > 60 mL/Min [facility] Globulin Calc (S) [Mass/Vol] Ordered By: Dom Paulino on 12-22-2021 Globulin (S) [Mass/Vol] 2.8 g/dL [facility] - Chemistry and C hemistry - challengeOrdered By: Dom Paulino on 12-22-2021 Glucose [Mass/Vol] 76 mg/dL 70-100 [facility] Lipid Profileon 12-22-2021 Cholesterol [Mass/Vol] 228 mg/dL High 140-200 [facility] Comment on above: Result Comment: Chol less than 200 mg/dl low risk Chol 201-239 mg/dl borderline risk Chol 240 mg/dl and greater high risk Performed By: #### E SUSHIL ROA, EBS LIPID #### [facility] [address] [place] [address] [place] Cholesterol in HDL [Mass/Vol] 73 mg/dL Normal 35-85 [facility] Comment on above: Result Comment: HDL CHOL ATP-III CLASSIFICATION Cardiovascular Risk HDL > or equal to 60 mg/dL LOW HDL < 40 mg/dL HIGH Performed By: #### E BS CMP, EBS LIPID #### [facility] [address] [place] [address] [place] Cholesterol.total/Janey sterol in HDL [Mass ratio] 3.1 {ratio} Normal <5.0 [facility] Comment on above: Result Comment: PERF ORMED BY: [place] [address] PATHOLOGIST BLOW OFF WORKER DENYS WOO M.D. Performed By: #### E BS CMP, EBS LIPID #### [facility] [address] LDL Cholesterol,Calculated 136 mg/dL High 0-100 [facility] Comment on above: Result Comment: LDL ATP III CLASSIFICATION LDL less than 100 mg/dL Optimal LDL 100-129 mg/dL Near or above optimal LDL 130-159 mg/dL Borderline high LDL 160-189 mg/dL High LDL greater than 189 mg/dL Very high Performed By: #### E BS CMP, EBS LIPID #### [address] Triglyceride w/Reflex 95 mg/dL Normal 35-149 [facility] Comment on above: Result Comment: TRIG ATP III CLASSIFICATION TRIG less than 150 mg/dL Normal TRIG 150-199 mg/dL Borderline high TRIG 200-500 mg/dL High TRIG greater than 500 mg/dL Very high Standard traceable to the Center for Disease Conrtrol and Prevention (CDC) test method. Performed By: #### E BS CMP, EBS LIPID #### [facility] [address] [place] [address] VLDL CHOLESTEROL 19 mg/dL Normal [facility] Comment on above: Performed By: #### E BS CMP, EBS LIPID #### [facility] [address] [place] [address] No Panel InformationOrdered By: Dom Paulino on 12-22-2021 Estimated GFR () > 60 mL/Min [facility] Comment on above: GFR estimated refere nce range: According to KDOQI guidelines, <60 ml/min/1.73m2 is sufficient to diagnose a patient with chronic kidney disease. Pharmacy Creatinine Clearance (Chem N/A [facility] Triglycerides Reflex 95 mg/dL 35-149 [facility] Comment on above: TRIG ATP III CLASSIF ICATION TRIG less than 150 mg/dL Normal TRIG 150-199 mg/dL Borderline high TRIG 200-500 mg/dL High TRIG greater than 500 mg/dL Very high Standard traceable to the Center for Disease Conrtrol and Prevention (CDC) test method. Protein [Mass/volume] in Ser um or PlasmaOrdered By: Dom Paulino on 12-22-2021 Protein [Mass/Vol] 6.2 g/dL 6.1-7.9 [facility] Serum or plasma alanine pan otransferase measurement without P-5'-P (enzymatic activiOrdered By: Dom Paulino on 12-22-2021 ALT No additional P-5'-P [Catalytic activity/Vol] 14 U/L 10-60 [facility] Serum or plasma albumin/glob ulin mass ratioOrdered By: Dom Paulino on 12-22-2021 Albumin/Globulin [Mass ratio] 1.2 {ratio} [facility] Serum or plasma alkaline nina sphatase measurement (enzymatic activity/volume)Ordered By: Dom Paulino on 12-22-2021 ALP [Catalytic activity/Vol] 48 U/L 32-92 [facility] Serum or plasma aspartate am inotransferase measurement (enzymatic activity/volume)Ordered By: Dom Paulino on 12-22-2021 AST [Catalytic activity/Vol] 15 U/L 10-42 [facility] Serum or plasma calcium dexter urement (mass/volume)Ordered By: Dom Paulino on 12-22-2021 Calcium [Mass/Vol] 9.3 mg/dL 8.2-10.2 [facility] Serum or plasma chloride glenis surement (moles/volume)Ordered By: Dom Paulino on 12-22-2021 Chloride [Moles/Vol] 101 mmol/L 95-114 [facility] Serum or plasma high density lipoprotein (HDL) cholesterol measurementOrdered By: Dom Paulino on 12-22-2021 Cholesterol in HDL [Mass/Vol] 73 mg/dL 35-85 [facility] Comment on above: HDL CHOL ATP-III CLA SSIFICATION Cardiovascular Risk HDL > or equal to 60 mg/dL LOW HDL < 40 mg/dL HIGH Serum or plasma potassium me asurement (moles/volume)Ordered By: Dom Paulino on 12-22-2021 Potassium [Moles/Vol] 3.8 mmol/L 3.5-5.1 [facility] Serum or plasma sodium measu rement (moles/volume)Ordered By: Dom Paulino on 12-22-2021 Sodium [Moles/Vol] 136 mmol/L 136-146 [facility] Serum or plasma total biliru bin measurement (mass/volume)Ordered By: Dom Paulino on 12-22-2021 Bilirubin [Mass/Vol] 0.3 mg/dL 0.3-1.2 [facility] Serum or plasma total carbon dioxide measurement (moles/volume)Ordered By: Dom Paulino on 12-22-2021 CO2 [Moles/Vol] 23.8 mmol/L 22.0-30.0 [facility] Serum or plasma total choles terol/high density lipoprotein (HDL) cholesterol mass ratOrdered By: Dom Paulino on 12-22-2021 Cholesterol.total/Janey sterol in HDL [Mass ratio] 3.1 {ratio} [facility] Serum or plasma urea nitroge n measurement (mass/volume)Ordered By: Dom Paulino on 12-22-2021 Urea nitrogen [Mass/Vol] 10 mg/dL 9-23 [facility] Outside Recordson 09-13-2021 Outside Records [id number]# 1.00[facility] Outside Recordson 08-28-2021 Outside Records [id number] #1.00[facility] Outside Records [id number] #1.00[facility] Consent Formson 07-14-2021 Consent Forms [id number] [address] [place] [address] Progress Note - Nurseon Progress Note - Nurse Antigen test ordered, test resulted positive, patient informed of positive result. In house test ordered, patient informed and swabbed, specimen sent to lab. [Electronically Signed on: 07/11/2021 16:04 EST] Kamiin Tovar RN [Verified on: 07/11/2021 16:04 EST] Kamini Tovar RN [facility] Progress Note - Nurse Antigen test ordered, test resulted negative, patient informed of negative result. [Electronically Signed on: 07/11/2021 11:45 EST] Kamnii Tovar RN [Verified on: 07/11/2021 11:45 EST] Kamini Tovar RN [facility] Measles (Rubeola) Imon 11-28 Measles (Rubeola) Im 3.49 Normal >1.09 [facility] Comment on above: Result Comment: Interpretation: IMMUNE Reference Range: <0.91 Not Immune 0.91-1.09 Equivocal >1.09 Immune Performed By: #### M EI, JUDY, VZI, TSPOT, MEÑO #### [address] [address] Credentialing Analyst: Maury Watts MD Mumps,Immun,Abon 11-28-2020 Mumps,Immun,Ab 1.48 Normal >1.09 [facility] Comment on above: Result Comment: Interpretation: IMMUNE Reference Range: <0.91 Not Immune 0.91-1.09 Equivocal >1.09 Immune Performed By: #### M EI, JUDY, VZI, TSPOT, MEÑO #### [facility] [employer] [address] [place] [address] Credentialing Analyst: Maury Watts MD T-Spoton 11-28-2020 T-Spot. TB Test Normal [facility] Comment on above: Result Comment: [facility] [employer] [address] [place] [id number] (NOTE) T-SPOT.TB Test Results --------- T-SPOT TB [...] M EI, JUDY, VZI, TSPOT, MEÑO #### [employer] [address] [place] [address] Credentialing Analyst: Maury Watts MD VZ Immunityon 11-28-2020 VZ Immunity 2.04 Normal >1.09 [facility] Comment on above: Result Comment: Interpretation: IMMUNE Reference Range: <0.91 Not Immune 0.91-1.09 Equivocal >1.09 Immune Performed By: #### M EI, JUDY, VZI, TSPOT, MEÑO #### [facility] [address] [place], [place] [id number] Credentialing Analyst: Maury Watts MD Rubella Ab, IgGon 11-25-2020 Rubella Ab, IgG 150.4 IU/mL Normal [facility] Comment on above: Result Comment: REFERENCE RANGE: <5.0 NON-REACTIVE (non-immune) 5.0 TO 9.9 EQUIVOCAL >=10.0 REACTIVE (immune) Performed By: #### M EI, JUDY, VZI, TSPOT, MEÑO #### [facility] [address] [id number] Credentialing Analyst: Maury Watts MD Rubella antibody, IgGOrdered By: Morales Gardner on 11-25-2020 Rubella virus IgG Ql (S) 150.4 IU/mL [email or web address] Phone: Comment on above: REFERENCE RANGE: <5.0 NON-REACTIVE (non-immune) 5.0 TO 9.9 EQUIVOCAL >=10.0 REACTIVE (immune) [email or web address] Phone: Encounters Encounter Date Encounter Type Care Provider Facility Start: 03-03-2024 End: 03-03-2024 ambulatory VANESA ROSAS Not Available Start: 02-18-2024 End: 02-18-2024 ambulatory ANGIE JEFFRY [...] respiratory examination DR ANGIE VIVAR . [facility] Start: 08-16-2022 End: 08-17-[address] ANGIE VIVAR . Facility:[facility] Start: 08-16-2022 End: 08-17-2022 Encounter for preprocedural respiratory examination DR ANGIE VIVAR . Facility:[facility] Start: 06-13-2022 End: 06-13-[address] ANGIE VIVAR . Facility:[facility] Start: 04-26-2022 End: 04-27-2022 ambulatory [facility] Facility:[facility] Start: 12-22-2021 End: 12-22-2021 Departed Referred [facility] [address] Start: 07-13-2021 End: 07-13-2021 ambulatory [facility] Facility:[facility] Start: 07-12-2021 End: 07-12-2021 ambulatory [facility] Facility:[facility] Start: 11-25-2020 End: 11-26-2020 ambulatory MORALES GARDNER [facility] Start: 11-25-2020 End: 11-25-2020 Subsequent hospital visit by physician [facility] Laboratory Procedures Date Procedure Procedure Detail Performing Clinician Start: 11-25-2020 Antibody rubella Omkar Gardner MD Work Phone: Plan of Treatment Date Care Activity Detail Author Start: 03-08-2021 Influenza vaccination Flu vacc ine (Season Ended) [email or web address] Phone: Start: 2005 COVID-19 Vaccine (1) COVID-19 Vaccin e (1) [email or web address] Phone: End: 11-25-2020 Mumps Antibody, IgG Mumps Antibody, IgG Lab Routine Once for 1 Occurrences starting 11/25/2020 until 11/25/2020 [email or web address] Phone: Comment on above: Once for 1 Occurrenc es starting 11/25/2020 until 11/25/2020 Mumps Antibody, IgG Mumps Antibo dy, IgG Lab Routine 11/25/2020 3:18 PM EDT [email or web address] Phone: End: 11-25-2020 Rubeola Antibody, IgG Rubeola Antibody, IgG Lab Routine Once for 1 Occurrences starting 11/25/2020 until 11/25/2020 [email or web address] Phone: Comment on above: Once for 1 Occurrenc es starting 11/25/2020 until 11/25/2020 Rubeola Antibody, IgG Rubeola An tibody, IgG Lab Routine 11/25/2020 3:18 PM EDT [email or web address] Phone: End: 11-25-2020 Tb antigen response gamma interferon t-cell susp T-Spot TB Test Lab Routine Once for 1 Occurrences starting 11/25/2020 until 11/25/2020 [email or web address] Phone: Comment on above: Once for 1 Occurrenc es starting 11/25/2020 until 11/25/2020 Tb antigen response gamma interferon t-cell susp T-Spot TB Test Lab Routine 11/25/2020 3:18 PM EDT [email or web address] Phone: End: 11-25-2020 Varicella Zoster Antibody, IgG Varicella Zoster Antibody, IgG Lab Routine Once for 1 Occurrences starting 11/25/2020 until 11/25/2020 [email or web address] Phone: Comment on above: Once for 1 Occurrenc es starting 11/25/2020 until 11/25/2020 Varicella Zoster Antibody, IgG Varicella Zoster Antibody, IgG Lab Routine 11/25/2020 3:18 PM EDT [email or web address] Phone: Payers Date Payer Category Payer Unknown [id number] 2020 Unknown [id number] 1993 Unknown [id number] 2.16.84 [id number] 1993 Unknown [id number] 2.16.84 0.1.883006.3.579.2.593 1993 Unknown [id number] 2.16.84 0.1.934205.3.579.2.593 1993 Unknown [id number] 2.16.84 0.1.229105.3.579.2.593 1993 Unknown [id number] 2.16.84 0.1.618735.3.579.2.9 1993 Unknown [id number] 2.16.84 0.1.082971.3.579.2.1258 1993 Unknown [id number] 2.16.84 0.1.764410.3.579.2.1258 1993 Unknown [id number] 2.16.84 0.1.764220.3.579.2.1258 1993 Unknown [id number] 2.16.84 0.1.220908.3.579.2.1258 1993 Unknown [id number] 2.16.84 0.1.559239.3.579.2.1258 1993 Unknown [id number] 2.16.84 0.1.390888.3.579.2.9 1993 Unknown [id number] 2.16.84 0.1.326402.3.579.2.1258 1993 Unknown [id number] 2.16.84 0.1.542498.3.579.2.9 1993 Unknown [id number] 2.16.840. 1.218447.3.579.2.9 1959 Unknown [id number] Self-pay Self Pay [id number] Social History Date Type Detail Facility Tobacco smoking stat [facility] Unknown if ever smoked [email or web address] Phone: Start: 1995 Sex Assigned At Not on file [facility] Phone: Start: 1995 Sex Assigned At Female F [facility] Clinical Note 08-23-2022 Note Date & Type Note Facility 08-23-2022 Note OPERATIVE NOTE OPERATION DATE: 08/23/2022 PROCEDURE: LEEP Procedure. PREOPERATIVE DIAGNOSIS: Cervical dysplasia. POSTOPERATIVE DIAGNOSIS: Cervical dysplasia. ANESTHESIA: General. SURGEON: Angie Vivar D.O. ENAMELER: None. BLOOD LOSS: 5 mL. SPECIMEN: Ectocervical [...] to Recovery Room in stable condition. [facility] Medication management note 06-11-2022 Note Date & Type Note Facility 06-11-2022 Note Entered by Diane Wadsworth on June 11, 2022 09:44:53 EST From: Diane Wadsworth To: [facility] #[id number] Sent: 06/11/2022 09:44:53 EST Subject: Medication Management Submitted: Complete:desogestrel-ethinyl estradiol (Velivet oral tablet) Signed by Diane Wadsworth 06/11/2022 09:44:00 EST Approved desogestrel-ethinyl estradiol (VELIVET 28 DAY TABLET) take 1 tablet by mouth once daily Qty: 84 tab(s) Days Supply: 84 Refills: 0 Substitutions Allowed Route To Pharmacy - [facility] #[id number] Signed by Diane Wadsworth Patient matched by Diane Wadsworth on 06/11/2022 09:41:06 EST From: [facility][id number] To: Bhavya Estrada MD Sent: June 11, 2022 8:39:02 AM [employer] Subject: Medication Management Due: June 12, 2022 12:05:33 AM [employer] 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 Pending Signature Drug: desogestrel-ethinyl estradiol (Velivet oral tablet), take 1 tablet by mouth once daily Quantity: 84 tab(s) Days Supply: 84 Refills: 1 Substitutions Allowed Notes from Pharmacy: Dispensed Drug: desogestrel-ethinyl estradiol (Velivet oral tablet), take 1 tablet by mouth once daily Quantity: 84 tab(s) Days Supply: 84 Refills: 0 Substitutions Allowed Notes from Pharmacy: [facility] Evaluation note Note Date & Type [...] section and content) DATE CREATED AUTHOR 12/02/2020 [facility] DATE CREATED AUTHOR AUTHOR'S ORGANIZ ATION 12/23/2021 [facility] DATE CREATED AUTHOR AUTHOR'S ORGANIZ ATION 06/11/2022 [facility] DATE CREATED AUTHOR AUTHOR'S ORGANIZ ATION 09/05/2022 [facility] DATE CREATED AUTHOR AUTHOR'S ORGANIZ ATION 03/05/2024 [facility] EPIC Care Teams (unrecognized sec tion [...] BE BASED ON THE PRIMARY CLINICAL RECORDS. [employer] provides no warranty or guarantee of the accuracy or completeness of information in this document.
[2024-03-06 07:53] VITALS: BP 129/81; PULSE 85
== END 2024-03-06 08:16 | disposition home or self-care (01) ==
LOC: FBCO 07:00 → FBC 07:48
PROVIDERS: Visit Provider Obstetrics & Gynecology
DX: O99.283 Endocrine, nutritional and metabolic diseases complicating pregnancy, third trimester (principal)
CPT/HCPCS: 59025

== ENCOUNTER 2024-03-10 07:09 | Outpatient (OUT) | payer BC, SELFPAY ==
--- OUTSIDE RECORDS SUMMARY | 2024-03-10 07:11 | XMS_ITS | CCD ---
Author Organization [facility] Care Team Providers Care Solution Specialist Name Role Phone Unavailable Primary Care Provider UnavailMORALES Renner Referring Unavailable NON STAFF Primary Care Provider UnavailDO Dom Cerda Jr Attending Provider [phone] Bhavya Estrada Primary Care Unavailable Bhavya Estrada [...] (2 sources) Amoxicillin; Translations: [amoxicillin] Drug Allergy [facility] Repository (1 source) tiZANidine; Translations: [tiZANidine] Drug Allergy [facility] Repository Problems Problem Classification Problem [...] 08-23-2022 BASO # 0.1 103/ul Normal 0.0-0.1 [facility] Comment on above: Performed By: #### C BC #### [facility] [address] [place] [address] Dr. Car Lozada Basophils/100 WBC (Bld) 0.5 % Normal 0.2-2.0 [facility] Comment on above: Performed By: #### C BC #### [facility] [address] [place] [address] Dr. Car Lozada EO # 0.6 103/ul Normal 0.0-0.7 [facility] Comment on above: Performed By: #### C BC #### [facility] [address] [place] [address] Dr. Car Lozada Eosinophils/100 WBC (Bld) 5.9 % Normal 0.9-7.0 [facility] Comment on above: Performed By: #### C BC #### [facility] [address] [place] [address] Dr. Car Lozada Erythrocyte distribution width (RBC) [Ratio] 12.6 % Normal 11.0-15.0 [facility] Comment on above: Performed By: #### C BC #### [facility] [address] [place] [address] Dr. Car Lozada Hematocrit (Bld) [Volume fraction] 42.0 % Normal 36.0-48.0 [facility] Comment on above: Performed By: #### C BC #### [facility] [address] [address] [address] Car Lozada Hemoglobin (Bld) [Mass/Vol] 14.1 g/dL Normal 12.0-16.0 [facility] Comment on above: Performed By: #### C BC #### [facility] [address] [address] [address] Car Lozada IG # 0.04 10e3/ul Critically high 0.00-0.03 [facility] Comment on above: Performed By: #### C BC #### [facility] [address] [place] [address] Dr. Car Lozada IG % 0.4 % Normal 0.0-0.5 [facility] Comment on above: Performed By: #### C BC #### [facility] [address] [place] [address] Dr. Car Lozada LYMPH # 3.6 103/ul Normal 1.2-3.8 [facility] Comment on above: Performed By: #### C BC #### [facility] [address] [place] [address] Dr. Car Lozada Lymphocytes/100 WBC (Bld) 34.7 % Normal 20.5-60.0 [facility] Comment on above: Performed By: #### C BC #### [facility] [address] [place] [address] Dr. Car Lozada MANUAL DIFF REQ NO Normal [facility] Comment on above: Performed By: #### C BC #### [facility] [address] [place] [address] Dr. Car Lozada MCH (RBC) [Entitic mass] 31.2 pg Normal 26.7-34.0 [facility] Comment on above: Performed By: #### C BC #### [facility] [address] [place] [address] Dr. Car Lozada MCHC (RBC) [Mass/Vol] 33.6 g/dL Normal 29.9-35.2 [facility] Comment on above: Performed By: #### C BC #### [facility] [address] [place] [address] Dr. Car Lozada MCV (RBC) [Entitic vol] 92.9 fL Normal 81.0-99.0 [facility] Comment on above: Performed By: #### C BC #### [facility] [address] [place] [address] Dr. Car Lozada MONO # 0.9 103/ul Critically high 0.3-0.8 [facility] Comment on above: Performed By: #### C BC #### [facility] [address] [place] [address] Dr. Car Lozada Monocytes/100 WBC (Bld) 8.3 % Normal 1.7-12.0 [facility] Comment on above: Performed By: #### C BC #### [facility] [address] [place] [address] Dr. Car Lozada NEUT # 5.2 103/ul Normal 1.4-6.5 [facility] Comment on above: Performed By: #### C BC #### [facility] [address] [place] [address] Dr. Car Lozada Neutrophils/100 WBC (Bld) 50.2 % Normal 43.0-75.0 [facility] Comment on above: Performed By: #### C BC #### [facility] [address] [place] [address] Dr. Car Lozada Platelet mean volume (Bld) [Entitic vol] 10.0 fL Normal 9.5-13.5 [facility] Comment on above: Performed By: #### C BC #### [facility] [address] [place] [address] Dr. Car Lozada PLT 251 103/ul Normal 150-450 [facility] Comment on above: Performed By: #### C BC #### [facility] [address] [place] [address] Dr. Car Lozada RBC 4.52 106/ul Normal 4.20-5.40 [facility] Comment on above: Performed By: #### C BC #### [facility] [address] [place] [address] Dr. Car Lozada WBC 10.3 103/ul Normal 4.0-11.0 [facility] Comment on above: Performed By: #### C BC #### [facility] [address] [place] [address] Dr. Car Lozada PREG QUANT HCGon 08-23-2022 HCG QUANT <1 Normal [facility] Comment on above: Performed By: #### P REGQNT #### [facility] [address] [place] [address] Dr. Car Lozada HCG RANGE SEE BELOW Normal [facility] Comment on above: Result Comment: 5-50 0.2-1 WEEK 50-500 1-2 WEEKS 100-5,000 2-3 WEEKS 500-10,000 3-4 WEEKS 1,000-50,000 4-5 WEEKS 10,000-100,000 5-6 WEEKS 15,000-200,000 6-8 WEEKS 10,000-100,000 2-3 MONTHS Performed By: #### P REGQNT #### [facility] [address] [place] [address] Dr. Car Lozada XR CHEST 2 Von [...] JOSÉ MIGUEL LIMON Date: 2022-08-16 10:17 Normal [facility] PAP ACOG PANEL 2: 21 to 29on 06-25-2022 . . Normal [facility] Comment on above: Performed By: #### [id number] #### [facility] [address] [place] [address] Dr. Car Lozada Age Gdln ACOG Testing 21-29 Normal [facility] Comment on above: Performed By: #### [id number] #### [facility] [address] [place] [address] Dr. Car Lozada DIAGNOSIS: Comment Abnormal [facility] Comment on above: Result Comment: EPIT HELIAL CELL ABNORMALITY. LOW GRADE SQUAMOUS INTRAEPITHELIAL LESION (LSIL). Performed By: #### [id number] #### [facility] [address] [place] [address] Dr. Car Lozada Electronically signed by: Comment Normal [facility] Comment on above: Result Comment: Phyllis Vital MD, Pathologist Performed By: #### [id number] #### [facility] [address] [address] [address] Car Lozada Methodology: Comment Normal [facility] Comment on above: Result Comment: This liquid based ThinPrep(R) pap test was screened with the use of an image guided system. Performed By: #### [id number] #### [facility] [address] [place] [address] Dr. Car Lozada Note: Comment Normal [facility] Comment on above: Result Comment: The Pap smear is a screening test designed to aid in the detection of premalignant and malignant conditions of the uterine cervix. It is not a diagnostic procedure and should not be used as the sole means of detecting cervical cancer. Both false-positive and false-negative reports do occur. . Performed By: #### 4 [id number] #### [facility] [address] [place] [address] Dr. Car Lozada Pathologist Provided ICD10 Comment Normal [facility] Comment on above: Result Comment: [id number]. [id number] Performed By: #### 4 [id number] #### [facility] [address] [place] [address] Dr. Car Lozada Performed by: Comment Normal [facility] Comment on above: Result Comment: Sidney Masters, Education Dean (ASCP) Performed By: #### [id number] #### [facility] [address] [place] [address] Dr. Car Lozada Recommendation: Comment Abnormal [facility] Comment on above: Result Comment: Sugg est follow up as clinically appropriate. Performed By: #### 4 [id number] #### [facility] [address] [address] [address] Car Lozada Reflex Criteria: Comment Normal [facility] Comment on above: Result Comment: The HPV DNA reflex criteria were not met with this specimen result therefore, no HPV testing was performed. . Performed By: #### [id number] #### [facility] [address] [address] [address] Car Lozada Specimen adequacy: Comment Normal [facility] Comment on above: Result Comment: Sati sfactory for evaluation. Endocervical and/or squamous metaplastic cells (endocervical component) are present. Performed By: #### 4 [id number] #### [facility] [address] [address] [address] Car Lozada Body fluid albumin measureme nt (mass/volume)Ordered By: Dom Paulino on 12-22-2021 Albumin (Body fld) [Mass/Vol] 3.4 g/dL 3.2-5.5 [facility] Cholesterol [Mass/volume] in Serum or PlasmaOrdered By: Dom Paulino on 12-22-2021 Cholesterol [Mass/Vol] 228 mg/dL 140-200 [facility] Comment on above: Chol less than [...] 12-22-2021 Albumin [Mass/Vol] 3.4 g/dL Normal 3.2-5.5 [facility] Comment on above: Performed By: #### E BS CMP, EBS LIPID #### [facility] [address] Albumin/Globulin [Mass ratio] 1.2 {ratio} Normal [facility] Comment on above: Performed By: #### E BS CMP, EBS LIPID #### [facility] [address] ALP [Catalytic activity/Vol] 48 U/L Normal 32-92 [facility] Comment on above: Performed By: #### E BS CMP, EBS LIPID #### [facility] [address] ALT [Catalytic activity/Vol] 14 U/L Normal 10-60 [facility] Comment on above: Performed By: #### E BS CMP, EBS LIPID #### [address] AST [Catalytic activity/Vol] 15 U/L Normal 10-42 [facility] Comment on above: Performed By: #### E BS CMP, EBS LIPID #### [address] Bilirubin [Mass/Vol] 0.3 mg/dL Normal 0.3-1.2 [facility] Comment on above: Performed By: #### E BS CMP, EBS LIPID #### [address] Calcium [Mass/Vol] 9.3 mg/dL Normal 8.2-10.2 [facility] Comment on above: Performed By: #### E BS CMP, EBS LIPID #### [facility] [address] [place] [address] [place] Chloride [Moles/Vol] 101 mmol/L Normal 95-114 [facility] Comment on above: Performed By: #### E BS CMP, EBS LIPID #### [facility] [address] [place] [address] [place] CO2 [Moles/Vol] 23.8 mmol/L Normal 22.0-30.0 [facility] Comment on above: Performed By: #### E BS CMP, EBS LIPID #### [facility] [address] [place] [address] [place] Creatinine [Mass/Vol] 0.79 mg/dL Normal 0.44-1.03 [facility] Comment on above: Performed By: #### E BS CMP, EBS LIPID #### [facility] [address] Estimated GFR ( Aleena > 60 Normal [facility] Comment on above: Result Comment: GFR estimated reference range: According to KDOQI guidelines, <60 ml/min/1.73m2 is sufficient to diagnose a patient with chronic kidney disease. Performed By: #### E BS CMP, EBS LIPID #### [facility] [address] Estimated GFR (Non- Am > 60 [facility] Comment on above: Performed By: #### E BS CMP, EBS LIPID #### [facility] [address] [place] [address] Globulin (S) [Mass/Vol] 2.8 g/dL Normal [facility] Comment on above: Performed By: #### E BS CMP, EBS LIPID #### [facility] [address] [place] [address] Glucose [Mass/Vol] 76 mg/dL Normal 70-100 [facility] Comment on above: Performed By: #### E BS CMP, EBS LIPID #### [facility] [address] [place] [address] Potassium [Moles/Vol] 3.8 mmol/L Normal 3.5-5.1 [facility] Comment on above: Performed By: #### E BS CMP, EBS LIPID #### [facility] [address] [place] [address] Protein [Mass/Vol] 6.2 g/dL Normal 6.1-7.9 [facility] Comment on above: Performed By: #### E BS CMP, EBS LIPID #### [facility] [address] [place] [address] Sodium [Moles/Vol] 136 mmol/L Normal 136-146 [facility] Comment on above: Performed By: #### E BS CMP, EBS LIPID #### [facility] [address] [place] [address] [place] Urea nitrogen [Mass/Vol] 10 mg/dL Normal 9-23 [facility] Comment on above: Performed By: #### E SUSHIL ROA, EBS LIPID #### [facility] [address] [place] [address] [place] Creatinine and Glomerular fi ltration rate.predicted panel (S/P/Bld)Ordered By: Dom Paulino on 12-22-2021 Creatinine [Mass/Vol] 0.79 mg/dL 0.44-1.03 [facility] Estimated glomerular filtrat ion rate (GFR) non- AmericanOrdered By: Dom Paulino on 12-22-2021 GFR/1.73 sq M.predicted among non-blacks MDRD (S/P/Bld) [Vol rate/Area] > 60 mL/Min [facility] Globulin Calc (S) [Mass/Vol] Ordered By: Dom Paulino on 12-22-2021 Globulin (S) [Mass/Vol] 2.8 g/dL [facility] - Chemistry and C hemistry - challengeOrdered By: Dom Paulino on 12-22-2021 Glucose [Mass/Vol] 76 mg/dL 70-100 [facility] Lipid Profileon 12-22-2021 Cholesterol [Mass/Vol] 228 mg/dL High 140-200 [facility] Comment on above: Result Comment: Chol less than 200 mg/dl low risk Chol 201-239 mg/dl borderline risk Chol 240 mg/dl and greater high risk Performed By: #### E SUSHIL ROA, EBS LIPID #### [facility] [address] [place] [address] [place] Cholesterol in HDL [Mass/Vol] 73 mg/dL Normal 35-85 [facility] Comment on above: Result Comment: HDL CHOL ATP-III CLASSIFICATION Cardiovascular Risk HDL > or equal to 60 mg/dL LOW HDL < 40 mg/dL HIGH Performed By: #### E BS CMP, EBS LIPID #### [facility] [address] [place] [address] [place] Cholesterol.total/Janey sterol in HDL [Mass ratio] 3.1 {ratio} Normal <5.0 [facility] Comment on above: Result Comment: PERF ORMED BY: [place] [address] PATHOLOGIST MANAGER ADVERTISING DENYS WOO M.D. Performed By: #### E BS CMP, EBS LIPID #### [facility] [address] LDL Cholesterol,Calculated 136 mg/dL High 0-100 [facility] Comment on above: Result Comment: LDL ATP III CLASSIFICATION LDL less than 100 mg/dL Optimal LDL 100-129 mg/dL Near or above optimal LDL 130-159 mg/dL Borderline high LDL 160-189 mg/dL High LDL greater than 189 mg/dL Very high Performed By: #### E BS CMP, EBS LIPID #### [address] Triglyceride w/Reflex 95 mg/dL Normal 35-149 [facility] Comment on above: Result Comment: TRIG ATP III CLASSIFICATION TRIG less than 150 mg/dL Normal TRIG 150-199 mg/dL Borderline high TRIG 200-500 mg/dL High TRIG greater than 500 mg/dL Very high Standard traceable to the Center for Disease Conrtrol and Prevention (CDC) test method. Performed By: #### E BS CMP, EBS LIPID #### [facility] [address] [place] [address] VLDL CHOLESTEROL 19 mg/dL Normal [facility] Comment on above: Performed By: #### E BS CMP, EBS LIPID #### [facility] [address] [place] [address] No Panel InformationOrdered By: Dom Paulino on 12-22-2021 Estimated GFR () > 60 mL/Min [facility] Comment on above: GFR estimated refere nce range: According to KDOQI guidelines, <60 ml/min/1.73m2 is sufficient to diagnose a patient with chronic kidney disease. Pharmacy Creatinine Clearance (Chem N/A [facility] Triglycerides Reflex 95 mg/dL 35-149 [facility] Comment on above: TRIG ATP III CLASSIF ICATION TRIG less than 150 mg/dL Normal TRIG 150-199 mg/dL Borderline high TRIG 200-500 mg/dL High TRIG greater than 500 mg/dL Very high Standard traceable to the Center for Disease Conrtrol and Prevention (CDC) test method. Protein [Mass/volume] in Ser um or PlasmaOrdered By: Dom Paulino on 12-22-2021 Protein [Mass/Vol] 6.2 g/dL 6.1-7.9 [facility] Serum or plasma alanine pan otransferase measurement [...] on 12-22-2021 Calcium [Mass/Vol] 9.3 mg/dL 8.2-10.2 [facility] Serum or plasma chloride glenis surement (moles/volume)Ordered By: oDm Paulino on 12-22-2021 Chloride [Moles/Vol] 101 mmol/L 95-114 [facility] Serum or plasma high density lipoprotein [...] on 12-22-2021 Potassium [Moles/Vol] 3.8 mmol/L 3.5-5.1 [facility] Serum or plasma sodium measu rement (moles/volume)Ordered By: Dom Paulino on 12-22-2021 Sodium [Moles/Vol] 136 mmol/L 136-146 [facility] Serum or plasma total biliru bin measurement (mass/volume)Ordered By: Dom Paulino on 12-22-2021 Bilirubin [Mass/Vol] 0.3 mg/dL 0.3-1.2 [facility] Serum or plasma total carbon dioxide measurement (moles/volume)Ordered By: Dom Paulino on 12-22-2021 CO2 [Moles/Vol] 23.8 mmol/L 22.0-30.0 [facility] Serum or plasma total choles terol/high density lipoprotein (HDL) cholesterol mass ratOrdered By: Dom Paulino on 12-22-2021 Cholesterol.total/Janey sterol in HDL [Mass ratio] 3.1 {ratio} [facility] Serum or plasma urea nitroge n measurement (mass/volume)Ordered By: Dom Paulino on 12-22-2021 Urea nitrogen [Mass/Vol] 10 mg/dL 9-23 [facility] Outside Recordson 09-13-2021 Outside Records [id number]# 1.00[facility] Outside Recordson 08-28-2021 Outside Records [id number] #1.00[facility] Outside Records [id number] #1.00[facility] Consent Formson 07-14-2021 Consent Forms [id number] #[address] [place] [address] Progress Note - Nurseon Progress Note - Nurse Antigen test ordered, test resulted positive, patient informed of positive result. In house test ordered, patient informed and swabbed, specimen sent to lab. [Electronically Signed on: 07/11/2021 16:04 EST] Kamini Tovar RN [Verified on: 07/11/2021 16:04 EST] Kamini Tovar RN [facility] Progress Note - Nurse Antigen test ordered, test resulted negative, patient informed of negative result. [Electronically Signed on: 07/11/2021 11:45 EST] Kamini Tovar RN [Verified on: 07/11/2021 11:45 EST] Kamini Tovar RN [facility] Measles (Rubeola) Imon 11-28 Measles (Rubeola) Im 3.49 Normal >1.09 [facility] Comment on above: Result Comment: Interpretation: IMMUNE Reference Range: <0.91 Not Immune 0.91-1.09 Equivocal >1.09 Immune Performed By: #### M EI, JUDY, VZI, TSPOT, MEÑO #### [address] [address] [employer] Assistant: Maury Watts MD Mumps,Immun,Abon 11-28-2020 Mumps,Immun,Ab 1.48 Normal >1.09 [facility] Comment on above: Result Comment: Interpretation: IMMUNE Reference Range: <0.91 Not Immune 0.91-1.09 Equivocal >1.09 Immune Performed By: #### M EI, JUDY, VZI, TSPOT, MEÑO #### [facility] [employer] [address] [place] [address] [employer] Assistant: Maury Watts MD T-Spoton 11-28-2020 T-Spot. TB Test Normal [facility] Comment on above: Result Comment: [facility] [employer] [address] [place] [id number] (NOTE) T-SPOT.TB Test Results --------- T-SPOT TB [...] M EI, JUDY, VZI, TSPOT, MEÑO #### [employer] [address] [place] [address] [employer] Assistant: Maury Watts MD VZ Immunityon 11-28-2020 VZ Immunity 2.04 Normal >1.09 [facility] Comment on above: Result Comment: Interpretation: IMMUNE Reference Range: <0.91 Not Immune 0.91-1.09 Equivocal >1.09 Immune Performed By: #### M EI, JUDY, VZI, TSPOT, MEÑO #### [employer] [address] [place], [place] [id number] Electric[employer] Assistant: Maury Watts MD Rubella Ab, IgGon 11-25-2020 Rubella Ab, IgG 150.4 IU/mL Normal [facility] Comment on above: Result Comment: REFERENCE RANGE: <5.0 NON-REACTIVE (non-immune) 5.0 TO 9.9 EQUIVOCAL >=10.0 REACTIVE (immune) Performed By: #### M EI, JUDY, VZI, TSPOT, MEÑO #### [employer] [address] [id number] [employer] Assistant: Maury Watts MD Rubella antibody, IgGOrdered By: Morales Gardner on 11-25-2020 Rubella virus IgG Ql (S) 150.4 IU/mL [employer] Phone: Comment on above: REFERENCE RANGE: <5.0 NON-REACTIVE (non-immune) 5.0 TO 9.9 EQUIVOCAL >=10.0 REACTIVE (immune) [employer] Phone: Encounters Encounter Date Encounter Type Care [...] respiratory examination DR ANGIE VIVAR . [facility] Start: 08-16-2022 End: 08-17-[address] ANGIE VIVAR . Facility:[facility] Start: 08-16-2022 End: 08-17-2022 Encounter for preprocedural respiratory examination DR ANGIE VIVAR . Facility:[facility] Start: 06-13-2022 End: 06-13-[address] ANGIE VIVAR . Facility:[facility] Start: 04-26-2022 End: 04-27-2022 ambulatory [facility] Facility:[facility] Start: 12-22-2021 End: 12-22-2021 Departed Referred [facility] [address] Start: 07-13-2021 End: 07-13-2021 ambulatory [facility] Facility:[facility] Start: 07-12-2021 End: 07-12-2021 ambulatory [facility] Facility:[facility] Start: 11-25-2020 End: 11-26-2020 ambulatory MORALES GARDNER [facility] Start: 11-25-2020 End: 11-25-2020 Subsequent hospital visit by physician [facility] Laboratory Procedures Date Procedure Procedure Detail Performing Clinician Start: 11-25-2020 Antibody rubella Omkar Gardner MD Work Phone: Plan of Treatment Date Care Activity Detail Author Start: 03-08-2021 Influenza vaccination Flu vacc ine (Season Ended) [employer] Phone: Start: 2005 COVID-19 Vaccine (1) COVID-19 Vaccin e (1) [employer] Phone: End: 11-25-2020 Mumps Antibody, IgG Mumps Antibody, IgG Lab Routine Once for 1 Occurrences starting 11/25/2020 until 11/25/2020 [employer] Phone: Comment on above: Once for 1 Occurrenc es starting 11/25/2020 until 11/25/2020 Mumps Antibody, IgG Mumps Antibo dy, IgG Lab Routine 11/25/2020 3:18 PM EDT [employer] Phone: End: 11-25-2020 Rubeola Antibody, IgG Rubeola Antibody, IgG Lab Routine Once for 1 Occurrences starting 11/25/2020 until 11/25/2020 [employer] Phone: Comment on above: Once for 1 Occurrenc es starting 11/25/2020 until 11/25/2020 Rubeola Antibody, IgG Rubeola An tibody, IgG Lab Routine 11/25/2020 3:18 PM EDT [employer] Phone: End: 11-25-2020 Tb antigen response gamma interferon t-cell susp T-Spot TB Test Lab Routine Once for 1 Occurrences starting 11/25/2020 until 11/25/2020 [employer] Phone: Comment on above: Once for 1 Occurrenc es starting 11/25/2020 until 11/25/2020 Tb antigen response gamma interferon t-cell susp T-Spot TB Test Lab Routine 11/25/2020 3:18 PM EDT [employer] Phone: End: 11-25-2020 Varicella Zoster Antibody, IgG Varicella Zoster Antibody, IgG Lab Routine Once for 1 Occurrences starting 11/25/2020 until 11/25/2020 [employer] Phone: Comment on above: Once for 1 Occurrenc es starting 11/25/2020 until 11/25/2020 Varicella Zoster Antibody, IgG Varicella Zoster Antibody, IgG Lab Routine 11/25/2020 3:18 PM EDT [employer] Phone: Payers Date Payer Category Payer Unknown [id number] 2020 Unknown [id number] 1995 Unknown [id number] 2.16.84 0.1.595842.3.579.2.718 1993 Unknown [id number] 2.16.84 0.1.468453.3.579.2.593 1993 Unknown [id number] 2.16.84 0.1.662176.3.579.2.593 1993 Unknown [id number] 2.16.84 0.1.727171.3.579.2.593 1993 Unknown [id number] 2.16.84 0.1.333421.3.579.2.9 1993 Unknown [id number] 2.16.84 0.1.557652.3.579.2.1258 1993 Unknown [id number] 2.16.84 0.1.399649.3.579.2.1258 1993 Unknown [id number] 2.16.84 0.1.643489.3.579.2.1258 1993 Unknown [id number] 2.16.84 0.1.459616.3.579.2.1258 1993 Unknown [id number] 2.16.84 0.1.221066.3.579.2.1258 1993 Unknown [id number] 2.16.84 0.1.845713.3.579.2.9 1993 Unknown [id number] 2.16.84 0.1.885558.3.579.2.1258 1993 Unknown [id number] 2.16.84 0.1.507957.3.579.2.9 1993 Unknown [id number] 2.16.840. 1.158131.3.579.2.9 1959 Unknown [id number] Self-pay Self Pay [id number] Social History Date Type Detail Facility Tobacco smoking stat [facility] Unknown if ever smoked [employer] Phone: Start: 1995 Sex Assigned At Not on file [facility] Phone: Start: 1995 Sex Assigned At Female [facility] Clinical Note 08-23-2022 Note Date & Type Note Facility 08-23-2022 Note OPERATIVE NOTE OPERATION DATE: 08/23/2022 PROCEDURE: LEEP Procedure. PREOPERATIVE DIAGNOSIS: Cervical dysplasia. POSTOPERATIVE DIAGNOSIS: Cervical dysplasia. ANESTHESIA: General. SURGEON: Angie Vivar D.O. SOCIAL STUDIES DEPARTMENT CHAIR: None. BLOOD LOSS: 5 mL. SPECIMEN: Ectocervical [...] to Recovery Room in stable condition. [facility] Medication management note 06-11-2022 Note Date & Type Note Facility 06-11-2022 Note Entered by Diane Wadsworth on June 11, 2022 09:44:53 EST From: Diane Wadsworth To: [facility] #[id number] Sent: 06/11/2022 09:44:53 EST Subject: Medication Management Submitted: Complete:desogestrel-ethinyl estradiol (Velivet oral tablet) Signed by Diane Wadsworth 06/11/2022 09:44:00 EST Approved desogestrel-ethinyl estradiol (VELIVET 28 DAY TABLET) take 1 tablet by mouth once daily Qty: 84 tab(s) Days Supply: 84 Refills: 0 Substitutions Allowed Route To Pharmacy - [facility] #[id number] Signed by Diane Wadsworth Patient matched by Diane Wadsworth on 06/11/2022 09:41:06 EST From: [facility][id number] To: Bhavya Estrada MD Sent: June 11, 2022 8:39:02 AM SALES DEVELOPMENT REPRESENTATIVE Subject: Medication Management Due: June 12, 2022 12:05:33 AM SALES DEVELOPMENT REPRESENTATIVE On Hold Pending Signature Drug: desogestrel-ethinyl estradiol (Velivet oral tablet), take 1 tablet by mouth once daily Quantity: 84 tab(s) Days Supply: 84 Refills: 1 Substitutions Allowed Notes from Pharmacy: Dispensed Drug: desogestrel-ethinyl estradiol (Velivet oral tablet), take 1 tablet by mouth once daily Quantity: 84 tab(s) Days Supply: 84 Refills: 0 Substitutions Allowed Notes from Pharmacy: [facility] Evaluation note Note Date & Type Note Facility Evaluation note No assessment information availa [facility] Work Phone: Summary Purpose Family History [...] section and content) DATE CREATED AUTHOR 12/02/2020 [facility] DATE CREATED AUTHOR AUTHOR'S ORGANIZ ATION 12/23/2021 [facility] DATE CREATED AUTHOR AUTHOR'S ORGANIZ ATION 06/11/2022 [facility] DATE CREATED AUTHOR AUTHOR'S ORGANIZ ATION 09/05/2022 [facility] DATE CREATED AUTHOR AUTHOR'S ORGANIZ ATION 03/05/2024 [facility] [employer] Care Teams (unrecognized sec tion [...] BE BASED ON THE PRIMARY CLINICAL RECORDS. [employer] provides no warranty or guarantee of the accuracy or completeness of information in this document.
--- NOTE | 2024-03-10 13:11 | US_ITS ---
[address] [address] Patient Name: MARISA ADAN MRN: [id number] date: 1995 Sex: F Assigned Patient Location: [facility] Current Patient Location: Accession/Order Number: [id number] Exam Date: 03/10/2024 13:15 Report Date: 03/10/2024 14:51 At the request of: ANGIE TERAN Procedure: US OB BPP w non-stress EXAMINATION: US OB BPP w non-stress HISTORY:GESTATIONAL DIABETES MELLITUS O 24.419 COMPARISON: Ultrasound OB biophysical 03/03/2024 TECHNIQUE: Ultrasound biophysical profile was performed in the radiology department. BREATHING MOVEMENTS: 2 GROSS BODY MOVEMENTS: 2 TONE: 2 QUALITATIVE AMNIOTIC FLUID VOLUME: 2 PRESENTATION: CEPHALIC HEART RATE: 135 bpm AMNIOTIC FLUID VOLUME: 11.89 cm GESTATIONAL AGE: 35 weeks 3 days US/US OB BPP w non-stress IMPRESSION: Total biophysical profile score: 8 Electronically authenticated by: JOSÉ MIGUEL LIMON Date: 03/10/2024 14:51
[2024-03-10 13:12] VITALS: BP 138/81; PULSE 90
== END 2024-03-10 14:51 | disposition home or self-care (01) ==
LOC: US 07:09 → FBC 13:08
PROVIDERS: Visit Provider Obstetrics & Gynecology
DX: O24.419 Gestational diabetes mellitus in pregnancy, unspecified control (principal); Z3A.35 35 weeks gestation of pregnancy
CPT/HCPCS: 76818

== ENCOUNTER 2024-03-13 06:56 | Outpatient (OUT) | payer BC, SELFPAY ==
--- OUTSIDE RECORDS SUMMARY | 2024-03-13 06:59 | XMS_ITS | CCD ---
Author Organization [facility] Care Team Providers Care Music Minister Name Role Phone Unavailable Primary Care Provider UnavailMORALES Renner Referring Unavailable NON STAFF Primary Care Provider UnavailDO Dom Cerda Jr Attending Provider [phone] Bhavya Estrada Primary Care Unavailable Bhavya Estrada [...] (2 sources) Amoxicillin; Translations: [amoxicillin] Drug Allergy [facility] Repository (1 source) tiZANidine; Translations: [tiZANidine] Drug Allergy [facility] Repository Problems Problem Classification [...] 08-23-2022 BASO # 0.1 103/ul Normal 0.0-0.1 [facility] Comment on above: Performed By: #### C BC #### [facility] [address] [place] [address] Dr. Car Lozada Basophils/100 WBC (Bld) 0.5 % Normal 0.2-2.0 [facility] Comment on above: Performed By: #### C BC #### [facility] [address] [place] [address] Dr. Car Lozada EO # 0.6 103/ul Normal 0.0-0.7 [facility] Comment on above: Performed By: #### C BC #### [facility] [address] [place] [address] Dr. Car Lozada Eosinophils/100 WBC (Bld) 5.9 % Normal 0.9-7.0 [facility] Comment on above: Performed By: #### C BC #### [facility] [address] [place] [address] Dr. Car Lozada Erythrocyte distribution width (RBC) [Ratio] 12.6 % Normal 11.0-15.0 [facility] Comment on above: Performed By: #### C BC #### [facility] [address] [place] [address] Dr. Car Lozada Hematocrit (Bld) [Volume fraction] 42.0 % Normal 36.0-48.0 [facility] Comment on above: Performed By: #### C BC #### [facility] [address] [address] [address] Car Lozada Hemoglobin (Bld) [Mass/Vol] 14.1 g/dL Normal 12.0-16.0 [facility] Comment on above: Performed By: #### C BC #### [facility] [address] [address] [address] Car Lozada IG # 0.04 10e3/ul Critically high 0.00-0.03 [facility] Comment on above: Performed By: #### C BC #### [facility] [address] [place] [address] Dr. Car Lozada IG % 0.4 % Normal 0.0-0.5 [facility] Comment on above: Performed By: #### C BC #### [facility] [address] [place] [address] Dr. Car Lozada LYMPH # 3.6 103/ul Normal 1.2-3.8 [facility] Comment on above: Performed By: #### C BC #### [facility] [address] [place] [address] Dr. Car Lozada Lymphocytes/100 WBC (Bld) 34.7 % Normal 20.5-60.0 [facility] Comment on above: Performed By: #### C BC #### [facility] [address] [place] [address] Dr. Car Lozada MANUAL DIFF REQ NO Normal [facility] Comment on above: Performed By: #### C BC #### [facility] [address] [place] [address] Dr. Car Lozada MCH (RBC) [Entitic mass] 31.2 pg Normal 26.7-34.0 [facility] Comment on above: Performed By: #### C BC #### [facility] [address] [place] [address] Dr. Car Lozada MCHC (RBC) [Mass/Vol] 33.6 g/dL Normal 29.9-35.2 [facility] Comment on above: Performed By: #### C BC #### [facility] [address] [place] [address] Dr. Car Lozada MCV (RBC) [Entitic vol] 92.9 fL Normal 81.0-99.0 [facility] Comment on above: Performed By: #### C BC #### [facility] [address] [place] [address] Dr. Car Lozada MONO # 0.9 103/ul Critically high 0.3-0.8 [facility] Comment on above: Performed By: #### C BC #### [facility] [address] [place] [address] Dr. Car Lozada Monocytes/100 WBC (Bld) 8.3 % Normal 1.7-12.0 [facility] Comment on above: Performed By: #### C BC #### [facility] [address] [place] [address] Dr. Car Lozada NEUT # 5.2 103/ul Normal 1.4-6.5 [facility] Comment on above: Performed By: #### C BC #### [facility] [address] [place] [address] Dr. Car Lozada Neutrophils/100 WBC (Bld) 50.2 % Normal 43.0-75.0 [facility] Comment on above: Performed By: #### C BC #### [facility] [address] [place] [address] Dr. Car Lozada Platelet mean volume (Bld) [Entitic vol] 10.0 fL Normal 9.5-13.5 [facility] Comment on above: Performed By: #### C BC #### [facility] [address] [place] [address] Dr. Car Lozada PLT 251 103/ul Normal 150-450 [facility] Comment on above: Performed By: #### C BC #### [facility] [address] [place] [address] Dr. Car Lozada RBC 4.52 106/ul Normal 4.20-5.40 [facility] Comment on above: Performed By: #### C BC #### [facility] [address] [place] [address] Dr. Car Lozada WBC 10.3 103/ul Normal 4.0-11.0 [facility] Comment on above: Performed By: #### C BC #### [facility] [address] [place] [address] Dr. Car Lozada PREG QUANT HCGon 08-23-2022 HCG QUANT <1 Normal [facility] Comment on above: Performed By: #### P REGQNT #### [facility] [address] [place] [address] Dr. Car Lozada HCG RANGE SEE BELOW Normal [facility] Comment on above: Result Comment: 5-50 0.2-1 WEEK 50-500 1-2 WEEKS 100-5,000 2-3 WEEKS 500-10,000 3-4 WEEKS 1,000-50,000 4-5 WEEKS 10,000-100,000 5-6 WEEKS 15,000-200,000 6-8 WEEKS 10,000-100,000 2-3 MONTHS Performed By: #### P REGQNT #### [facility] [address] [place] [address] Dr. Car Lozada XR CHEST 2 Von [...] JOSÉ MIGUEL LIMON Date: 2022-08-16 10:17 Normal [facility] PAP ACOG PANEL 2: 21 to 29on 06-25-2022 . . Normal [facility] Comment on above: Performed By: #### [id number] #### [facility] [address] [place] [address] Dr. Car Lozada Age Gdln ACOG Testing 21-29 Normal [facility] Comment on above: Performed By: #### [id number] #### [facility] [address] [place] [address] Dr. Car Lozada DIAGNOSIS: Comment Abnormal [facility] Comment on above: Result Comment: EPIT HELIAL CELL ABNORMALITY. LOW GRADE SQUAMOUS INTRAEPITHELIAL LESION (LSIL). Performed By: #### [id number] #### [facility] [address] [place] [address] Dr. Car Lozada Electronically signed by: Comment Normal [facility] Comment on above: Result Comment: Phyllis Vital MD, Pathologist Performed By: #### [id number] #### [facility] [address] [address] [address] Car Lozada Methodology: Comment Normal [facility] Comment on above: Result Comment: This liquid based ThinPrep(R) pap test was screened with the use of an image guided system. Performed By: #### 4 [id number] #### [facility] [address] [place] [address] Dr. Car Lozada Note: Comment Normal [facility] Comment on above: Result Comment: The Pap smear is a screening test designed to aid in the detection of premalignant and malignant conditions of the uterine cervix. It is not a diagnostic procedure and should not be used as the sole means of detecting cervical cancer. Both false-positive and false-negative reports do occur. . Performed By: #### [id number] #### [facility] [address] [place] [address] Dr. Car Lozada Pathologist Provided ICD10 Comment Normal [facility] Comment on above: Result Comment: [id number]. [id number] Performed By: #### 4 [id number] #### [facility] [address] [place] [address] Dr. Car Lozada Performed by: Comment Normal [facility] Comment on above: Result Comment: Sidney Masters, Dry Wall Sprayer (ASCP) Performed By: #### [id number] #### [facility] [address] [place] [address] Dr. Car Lozada Recommendation: Comment Abnormal [facility] Comment on above: Result Comment: Sugg est follow up as clinically appropriate. Performed By: #### 4 [id number] #### [facility] [address] [address] [address] Car Lozada Reflex Criteria: Comment Normal [facility] Comment on above: Result Comment: The HPV DNA reflex criteria were not met with this specimen result therefore, no HPV testing was performed. . Performed By: #### [id number] #### [facility] [address] [address] [address] Car Lozada Specimen adequacy: Comment Normal [facility] Comment on above: Result Comment: Sati sfactory for evaluation. Endocervical and/or squamous metaplastic cells (endocervical component) are present. Performed By: #### 4 [id number] #### [facility] [address] [address] [address] Car Lozada Body fluid albumin measureme nt (mass/volume)Ordered By: Dom Paulino on 12-22-2021 Albumin (Body fld) [Mass/Vol] 3.4 g/dL 3.2-5.5 [facility] Cholesterol [Mass/volume] in Serum or PlasmaOrdered By: Dom Paulino on 12-22-2021 Cholesterol [Mass/Vol] 228 mg/dL 140-200 [facility] Comment on above: Chol less than 200 m g/dl low risk Chol 201-239 mg/dl borderline risk Chol 240 mg/dl and greater high risk Cholesterol in LDL Calc [Mas s/Vol]Ordered By: Dom Paulino on 12-22-2021 Cholesterol in LDL [Mass/Vol] 136 mg/dL 0-100 [facility] Comment on above: LDL ATP III CLASSIFI CATION LDL less than 100 mg/dL Optimal LDL 100-129 mg/dL Near or above optimal LDL 130-159 mg/dL Borderline high LDL 160-189 mg/dL High LDL greater than 189 mg/dL Very high Cholesterol in VLDL Calc [Ma ss/Vol]Ordered By: Dom Paulino on 12-22-2021 Cholesterol in VLDL [Mass/Vol] 19 mg/dL [facility] Comprehensive Metabolic Empo n 12-22-2021 Albumin [Mass/Vol] 3.4 g/dL Normal 3.2-5.5 [facility] Comment on above: Performed By: #### E BS CMP, EBS LIPID #### [facility] [address] Albumin/Globulin [Mass ratio] 1.2 {ratio} Normal [facility] Comment on above: Performed By: #### E BS CMP, EBS LIPID #### [facility] [address] ALP [Catalytic activity/Vol] 48 U/L Normal 32-92 [facility] Comment on above: Performed By: #### E BS CMP, EBS LIPID #### [facility] [address] ALT [Catalytic activity/Vol] 14 U/L Normal 10-60 [facility] Comment on above: Performed By: #### E BS CMP, EBS LIPID #### [address] AST [Catalytic activity/Vol] 15 U/L Normal 10-42 [facility] Comment on above: Performed By: #### E BS CMP, EBS LIPID #### [address] Bilirubin [Mass/Vol] 0.3 mg/dL Normal 0.3-1.2 [facility] Comment on above: Performed By: #### E BS CMP, EBS LIPID #### [address] Calcium [Mass/Vol] 9.3 mg/dL Normal 8.2-10.2 [facility] Comment on above: Performed By: #### E BS CMP, EBS LIPID #### [facility] [address] [place] [address] [place] Chloride [Moles/Vol] 101 mmol/L Normal 95-114 [facility] Comment on above: Performed By: #### E BS CMP, EBS LIPID #### [facility] [address] [place] [address] [place] CO2 [Moles/Vol] 23.8 mmol/L Normal 22.0-30.0 [facility] Comment on above: Performed By: #### E BS CMP, EBS LIPID #### [facility] [address] [place] [address] [place] Creatinine [Mass/Vol] 0.79 mg/dL Normal 0.44-1.03 [facility] Comment on above: Performed By: #### E BS CMP, EBS LIPID #### [facility] [address] Estimated GFR ( Aleena > 60 Normal [facility] Comment on above: Result Comment: GFR estimated reference range: According to KDOQI guidelines, <60 ml/min/1.73m2 is sufficient to diagnose a patient with chronic kidney disease. Performed By: #### E BS CMP, EBS LIPID #### [facility] [address] Estimated GFR (Non- Am > 60 [facility] Comment on above: Performed By: #### E BS CMP, EBS LIPID #### [facility] [address] [place] [address] Globulin (S) [Mass/Vol] 2.8 g/dL Normal [facility] Comment on above: Performed By: #### E BS CMP, EBS LIPID #### [facility] [address] [place] [address] Glucose [Mass/Vol] 76 mg/dL Normal 70-100 [facility] Comment on above: Performed By: #### E BS CMP, EBS LIPID #### [facility] [address] [place] [address] Potassium [Moles/Vol] 3.8 mmol/L Normal 3.5-5.1 [facility] Comment on above: Performed By: #### E BS CMP, EBS LIPID #### [facility] [address] [place] [address] Protein [Mass/Vol] 6.2 g/dL Normal 6.1-7.9 [facility] Comment on above: Performed By: #### E BS CMP, EBS LIPID #### [facility] [address] [place] [address] Sodium [Moles/Vol] 136 mmol/L Normal 136-146 [facility] Comment on above: Performed By: #### E BS CMP, EBS LIPID #### [facility] [address] [place] [address] [place] Urea nitrogen [Mass/Vol] 10 mg/dL Normal 9-23 [facility] Comment on above: Performed By: #### E SUSHIL ROA, EBS LIPID #### [facility] [address] [place] [address] [place] Creatinine and Glomerular fi ltration rate.predicted panel (S/P/Bld)Ordered By: Dom Paulino on 12-22-2021 Creatinine [Mass/Vol] 0.79 mg/dL 0.44-1.03 [facility] Estimated glomerular filtrat ion rate (GFR) non- AmericanOrdered By: Dom Paulino on 12-22-2021 GFR/1.73 sq M.predicted among non-blacks MDRD (S/P/Bld) [Vol rate/Area] > 60 mL/Min [facility] Globulin Calc (S) [Mass/Vol] Ordered By: Dom Paulino on 12-22-2021 Globulin (S) [Mass/Vol] 2.8 g/dL [facility] - Chemistry and C hemistry - challengeOrdered By: Dom Paulino on 12-22-2021 Glucose [Mass/Vol] 76 mg/dL 70-100 [facility] Lipid Profileon 12-22-2021 Cholesterol [Mass/Vol] 228 mg/dL High 140-200 [facility] Comment on above: Result Comment: Chol less than 200 mg/dl low risk Chol 201-239 mg/dl borderline risk Chol 240 mg/dl and greater high risk Performed By: #### E SUSHIL ROA, EBS LIPID #### [facility] [address] [place] [address] [place] Cholesterol in HDL [Mass/Vol] 73 mg/dL Normal 35-85 [facility] Comment on above: Result Comment: HDL CHOL ATP-III CLASSIFICATION Cardiovascular Risk HDL > or equal to 60 mg/dL LOW HDL < 40 mg/dL HIGH Performed By: #### E BS CMP, EBS LIPID #### [facility] [address] [place] [address] [place] Cholesterol.total/Janey sterol in HDL [Mass ratio] 3.1 {ratio} Normal <5.0 [facility] Comment on above: Result Comment: PERF ORMED BY: [place] [address] PATHOLOGIST SAS ANALYST DENYS WOO M.D. Performed By: #### E BS CMP, EBS LIPID #### [facility] [address] LDL Cholesterol,Calculated 136 mg/dL High 0-100 [facility] Comment on above: Result Comment: LDL ATP III CLASSIFICATION LDL less than 100 mg/dL Optimal LDL 100-129 mg/dL Near or above optimal LDL 130-159 mg/dL Borderline high LDL 160-189 mg/dL High LDL greater than 189 mg/dL Very high Performed By: #### E BS CMP, EBS LIPID #### [address] Triglyceride w/Reflex 95 mg/dL Normal 35-149 [facility] Comment on above: Result Comment: TRIG ATP III CLASSIFICATION TRIG less than 150 mg/dL Normal TRIG 150-199 mg/dL Borderline high TRIG 200-500 mg/dL High TRIG greater than 500 mg/dL Very high Standard traceable to the Center for Disease Conrtrol and Prevention (CDC) test method. Performed By: #### E BS CMP, EBS LIPID #### [facility] [address] [place] [address] VLDL CHOLESTEROL 19 mg/dL Normal [facility] Comment on above: Performed By: #### E BS CMP, EBS LIPID #### [facility] [address] [place] [address] No Panel InformationOrdered By: Dom Paulino on 12-22-2021 Estimated GFR () > 60 mL/Min [facility] Comment on above: GFR estimated refere nce range: According to KDOQI guidelines, <60 ml/min/1.73m2 is sufficient to diagnose a patient with chronic kidney disease. Pharmacy Creatinine Clearance (Chem N/A [facility] Triglycerides Reflex 95 mg/dL 35-149 [facility] Comment on above: TRIG ATP III CLASSIF ICATION TRIG less than 150 mg/dL Normal TRIG 150-199 mg/dL Borderline high TRIG 200-500 mg/dL High TRIG greater than 500 mg/dL Very high Standard traceable to the Center for Disease Conrtrol and Prevention (CDC) test method. Protein [Mass/volume] in Ser um or PlasmaOrdered By: Dom Paulino on 12-22-2021 Protein [Mass/Vol] 6.2 g/dL 6.1-7.9 [facility] Serum or plasma alanine pan otransferase measurement without P-5'-P (enzymatic activiOrdered By: Dom Paulino on 12-22-2021 ALT No additional P-5'-P [Catalytic activity/Vol] 14 U/L 10-60 [facility] Serum or plasma albumin/glob ulin mass ratioOrdered By: Dom Paulino on 12-22-2021 Albumin/Globulin [Mass ratio] 1.2 {ratio} [facility] Serum or plasma alkaline nina sphatase measurement (enzymatic activity/volume)Ordered By: Dom Paulino on 12-22-2021 ALP [Catalytic activity/Vol] 48 U/L 32-92 [facility] Serum or plasma aspartate am inotransferase measurement (enzymatic activity/volume)Ordered By: Dom Paulino on 12-22-2021 AST [Catalytic activity/Vol] 15 U/L 10-42 [facility] Serum or plasma calcium dexter urement (mass/volume)Ordered By: Dom Paulino on 12-22-2021 Calcium [Mass/Vol] 9.3 mg/dL 8.2-10.2 [facility] Serum or plasma chloride gleins surement (moles/volume)Ordered By: Dom Paulino on 12-22-2021 Chloride [Moles/Vol] 101 mmol/L 95-114 [facility] Serum or plasma high density lipoprotein (HDL) cholesterol measurementOrdered By: Dom Paulino on 12-22-2021 Cholesterol in HDL [Mass/Vol] 73 mg/dL 35-85 [facility] Comment on above: HDL CHOL ATP-III CLA SSIFICATION Cardiovascular Risk HDL > or equal to 60 mg/dL LOW HDL < 40 mg/dL HIGH Serum or plasma potassium me asurement (moles/volume)Ordered By: Dom Paulino on 12-22-2021 Potassium [Moles/Vol] 3.8 mmol/L 3.5-5.1 [facility] Serum or plasma sodium measu rement (moles/volume)Ordered By: Dom Paulino on 12-22-2021 Sodium [Moles/Vol] 136 mmol/L 136-146 [facility] Serum or plasma total biliru bin measurement (mass/volume)Ordered By: Dom Paulino on 12-22-2021 Bilirubin [Mass/Vol] 0.3 mg/dL 0.3-1.2 [facility] Serum or plasma total carbon dioxide measurement (moles/volume)Ordered By: Dom Paulino on 12-22-2021 CO2 [Moles/Vol] 23.8 mmol/L 22.0-30.0 [facility] Serum or plasma total choles terol/high density lipoprotein (HDL) cholesterol mass ratOrdered By: Dom Paulino on 12-22-2021 Cholesterol.total/Janey sterol in HDL [Mass ratio] 3.1 {ratio} [facility] Serum or plasma urea nitroge n measurement (mass/volume)Ordered By: Dom Paulino on 12-22-2021 Urea nitrogen [Mass/Vol] 10 mg/dL 9-23 [facility] Outside Recordson 09-13-2021 Outside Records [id number]# 1.00[facility] 08-28-2021 Outside Records [id number] #1.00[facility] Outside Records [id number] #1.00[facility] Consent Formson 07-14-2021 Consent Forms [id number] #[address] [place] [address] Progress Note - Nurseon Progress Note - Nurse Antigen test ordered, test resulted positive, patient informed of positive result. In house test ordered, patient informed and swabbed, specimen sent to lab. [Electronically Signed on: 07/11/2021 16:04 EST] Kamini Tovar RN [Verified on: 07/11/2021 16:04 EST] Kamini Tovar RN [facility] Progress Note - Nurse Antigen test ordered, test resulted negative, patient informed of negative result. [Electronically Signed on: 07/11/2021 11:45 EST] Kamini Tovar RN [Verified on: 07/11/2021 11:45 EST] Kamini Tovar RN [facility] Measles (Rubeola) Imon 11-28 Measles (Rubeola) Im 3.49 Normal >1.[address] [facility] Comment on above: Result Comment: Interpretation: IMMUNE Reference Range: <0.91 Not Immune 0.91-1.09 Equivocal >1.09 Immune Performed By: #### M EI, JUDY, VZI, TSPOT, MEÑO #### [address] [address] Oil Producer: Maury Watts MD Mumps,Immun,Abon 11-28-2020 Mumps,Immun,Ab 1.48 Normal >1.09 [facility] Comment on above: Result Comment: Interpretation: IMMUNE Reference Range: <0.91 Not Immune 0.91-1.09 Equivocal >1.09 Immune Performed By: #### M EI, JUDY, VZI, TSPOT, MEÑO #### [facility] [employer] [address] [place] [address] Oil Producer: Maury Watts MD T-Spoton 11-28-2020 T-Spot. TB Test Normal [facility] Comment on above: Result Comment: [facility] [employer] [address] [place] [address] (NOTE) T-SPOT.TB Test Results --------- T-SPOT TB [...] M EI, JUDY, VZI, TSPOT, MEÑO #### [employer] [address] [place] [address] Oil Producer: Maury Watts MD VZ Immunityon 11-28-2020 VZ Immunity 2.04 Normal >1.09 [facility] Comment on above: Result Comment: Interpretation: IMMUNE Reference Range: <0.91 Not Immune 0.91-1.09 Equivocal >1.09 Immune Performed By: #### M EI, JUDY, VZI, TSPOT, MEÑO #### [employer] [address] [place], [place] [id number] Oil Producer: Maury Watts MD Rubella Ab, IgGon 11-25-2020 Rubella Ab, IgG 150.4 IU/mL Normal [place] Comment on above: Result Comment: REFERENCE RANGE: <5.0 NON-REACTIVE (non-immune) 5.0 TO 9.9 EQUIVOCAL >=10.0 REACTIVE (immune) Performed By: #### M EI, JUDY, VZI, TSPOT, MEÑO #### [employer] [address] [id number] Oil Producer: Maury Watts MD Rubella antibody, IgGOrdered By: Morales Gardner on 11-25-2020 Rubella virus IgG Ql (S) 150.4 IU/mL [facility] Phone: Comment on above: REFERENCE RANGE: <5.0 NON-REACTIVE (non-immune) 5.0 TO 9.9 EQUIVOCAL >=10.0 REACTIVE (immune) [facility] Phone: Encounters Encounter Date Encounter Type Care [...] respiratory examination DR ANGIE VIVAR . [facility] Start: 08-16-2022 End: 08-17-[address] ANGIE VIVAR . Facility:[facility] Start: 08-16-2022 End: 08-17-2022 Encounter for preprocedural respiratory examination DR ANGIE VIVAR . Facility:[facility] Start: 06-13-2022 End: 06-13-[address] ANGIE VIVAR . Facility:[facility] Start: 04-26-2022 End: 04-27-2022 ambulatory [facility] Facility:[facility] Start: 12-22-2021 End: 12-22-2021 Departed Referred [facility] [address] Start: 07-13-2021 End: 07-13-2021 ambulatory [facility] Facility:[facility] Start: 07-12-2021 End: 07-12-2021 ambulatory [facility] Facility:[facility] Start: 11-25-2020 End: 11-26-[address] [facility] Start: 11-25-2020 End: 11-25-2020 Subsequent hospital visit by physician [facility] Laboratory Procedures Date Procedure Procedure Detail Performing Clinician Start: 11-25-2020 Antibody rubella Omkar Gardner MD Work Phone: Plan of Treatment Date Care Activity Detail Author Start: 03-08-2021 Influenza vaccination Flu vacc ine (Season Ended) [facility] Phone: Start: 2005 COVID-19 Vaccine (1) COVID-19 Vaccin e (1) [facility] Phone: End: 11-25-2020 Mumps Antibody, IgG Mumps Antibody, IgG Lab Routine Once for 1 Occurrences starting 11/25/2020 until 11/25/2020 [facility] Phone: Comment on above: Once for 1 Occurrenc es starting 11/25/2020 until 11/25/2020 Mumps Antibody, IgG Mumps Antibo dy, IgG Lab Routine 11/25/2020 3:18 PM EDT [facility] Phone: End: 11-25-2020 Rubeola Antibody, IgG Rubeola Antibody, IgG Lab Routine Once for 1 Occurrences starting 11/25/2020 until 11/25/2020 [facility] Phone: Comment on above: Once for 1 Occurrenc es starting 11/25/2020 until 11/25/2020 Rubeola Antibody, IgG Rubeola An tibody, IgG Lab Routine 11/25/2020 3:18 PM EDT [facility] Phone: End: 11-25-2020 Tb antigen response gamma interferon t-cell susp T-Spot TB Test Lab Routine Once for 1 Occurrences starting 11/25/2020 until 11/25/2020 [facility] Phone: Comment on above: Once for 1 Occurrenc es starting 11/25/2020 until 11/25/2020 Tb antigen response gamma interferon t-cell susp T-Spot TB Test Lab Routine 11/25/2020 3:18 PM EDT [facility] Phone: End: 11-25-2020 Varicella Zoster Antibody, IgG Varicella Zoster Antibody, IgG Lab Routine Once for 1 Occurrences starting 11/25/2020 until 11/25/2020 [facility] Phone: Comment on above: Once for 1 Occurrenc es starting 11/25/2020 until 11/25/2020 Varicella Zoster Antibody, IgG Varicella Zoster Antibody, IgG Lab Routine 11/25/2020 3:18 PM EDT [facility] Phone: Payers Date Payer Category Payer Unknown [id number] 2020 Unknown [id number] 1995 Unknown [id number] 2.16.84 [id number] 1993 Unknown [id number] 2.16.84 0.1.464093.3.579.2.593 1993 Unknown [id number] 2.16.84 0.1.320589.3.579.2.593 1993 Unknown [id number] 2.16.84 0.1.694758.3.579.2.593 1993 Unknown [id number] 2.16.84 0.1.055217.3.579.2.9 1993 Unknown [id number] 2.16.84 0.1.127690.3.579.2.1258 1993 Unknown [id number] 2.16.84 0.1.441377.3.579.2.1258 1993 Unknown [id number] 2.16.84 0.1.850533.3.579.2.1258 1993 Unknown [id number] 2.16.84 0.1.016480.3.579.2.1258 1993 Unknown [id number] 2.16.84 0.1.137628.3.579.2.1258 1993 Unknown [id number] 2.16.84 0.1.279510.3.579.2.9 1993 Unknown [id number] 2.16.84 0.1.945406.3.579.2.1258 1993 Unknown [id number] 2.16.84 0.1.826606.3.579.2.9 1993 Unknown [id number] 2.16.840. 1.815556.3.579.2.9 1959 Unknown [id number] Self-pay Self Pay [id number] Social History Date Type Detail Facility Tobacco smoking stat [place] [facility] Unknown if ever smoked [facility] Phone: Start: 1995 Sex Assigned At Not on file [facility] Phone: Start: 1995 Sex Assigned At Female F [facility] Clinical Note 08-23-2022 Note Date & Type Note Facility 08-23-2022 Note OPERATIVE NOTE OPERATION DATE: 08/23/2022 PROCEDURE: LEEP Procedure. PREOPERATIVE DIAGNOSIS: Cervical dysplasia. POSTOPERATIVE DIAGNOSIS: Cervical dysplasia. ANESTHESIA: General. SURGEON: Angie Vivar D.O. VICE PRESIDENT QUALITY: None. BLOOD LOSS: 5 mL. SPECIMEN: Ectocervical [...] to Recovery Room in stable condition. [facility] Medication management note 06-11-2022 Note Date & Type Note Facility 06-11-2022 Note Entered by Diane Wadsworth on June 11, 2022 09:44:53 EST From: Diane Wadsworth To: [facility] #[id number] Sent: 06/11/2022 09:44:53 EST Subject: Medication Management Submitted: Complete:desogestrel-ethinyl estradiol (Velivet oral tablet) Signed by Diane Wadsworth 06/11/2022 09:44:00 EST Approved desogestrel-ethinyl estradiol (VELIVET 28 DAY TABLET) take 1 tablet by mouth once daily Qty: 84 tab(s) Days Supply: 84 Refills: 0 Substitutions Allowed Route To Pharmacy - [facility] #[id number] Signed by Daine Wadsworth Patient matched by Diane Wadsworth on 06/11/2022 09:41:06 EST From: [facility][id number] To: Bhavya Estrada MD Sent: June 11, 2022 8:39:02 AM [employer] Subject: Medication Management Due: June 12, 2022 12:05:33 AM [employer] On Hold Pending Signature Drug: desogestrel-ethinyl estradiol (Velivet oral tablet), take 1 tablet by mouth once daily Quantity: 84 tab(s) Days Supply: 84 Refills: 1 Substitutions Allowed Notes from Pharmacy: Dispensed Drug: desogestrel-ethinyl estradiol (Velivet oral tablet), take 1 tablet by mouth once daily Quantity: 84 tab(s) Days Supply: 84 Refills: 0 Substitutions Allowed Notes from Pharmacy: [facility] Evaluation note Note Date & Type Note Facility Evaluation note No assessment information availa [facility] Work Phone: Summary Purpose Family History [...] section and content) DATE CREATED AUTHOR 12/02/2020 [facility] DATE CREATED AUTHOR AUTHOR'S ORGANIZ ATION 12/23/2021 [facility] DATE CREATED AUTHOR AUTHOR'S ORGANIZ ATION 06/11/2022 [facility] DATE CREATED AUTHOR AUTHOR'S ORGANIZ ATION 09/05/2022 [facility] DATE CREATED AUTHOR AUTHOR'S ORGANIZ ATION 03/05/2024 [facility] [employer] Care Teams (unrecognized sec tion [...] BE BASED ON THE PRIMARY CLINICAL RECORDS. [employer] provides no warranty or guarantee of the accuracy or completeness of information in this document.
[2024-03-13 08:06] VITALS: BP 124/74; PULSE 94
[2024-03-13 09:01] VITALS: TEMP 36.3
--- NOTE | 2024-03-13 09:13 | US_ITS ---
[address] [address] Patient Name: MARISA ADAN MRN: [id number] date: 1995 Sex: F Assigned Patient Location: [facility] Current Patient Location: [facility] Accession/Order Number: [id number] Exam Date: 03/13/2024 10:00 Report Date: 03/13/2024 10:44 At the request of: ANGIE TERAN Procedure: US OB BPP w non-stress EXAMINATION: US OB BPP w non-stress HISTORY:Non-reactive NST COMPARISON: No relevant comparison available. TECHNIQUE: Ultrasound biophysical profile was performed in the radiology department. BREATHING MOVEMENTS: 2 GROSS BODY MOVEMENTS: 2 TONE: 2 QUALITATIVE AMNIOTIC FLUID VOLUME: 2 PRESENTATION: CEPHALIC HEART RATE: 160.71 bpm AMNIOTIC FLUID VOLUME: 10.06 cm GESTATIONAL AGE: 35 weeks 6 days US/US OB BPP w non-stress IMPRESSION: Total biophysical profile score: 8 Electronically authenticated by: JOSÉ MIGUEL LIMON Date: 03/13/2024 10:44
--- NOTE | 2024-03-13 09:13 | US_ITS ---
[address] [address] Patient Name: MARISA ADAN MRN: [id number] date: 1995 Sex: F Assigned Patient Location: [facility] Current Patient Location: Accession/Order Number: [id number] Exam Date: 03/13/2024 10:00 Report Date: 03/13/2024 11:01 At the request of: ANGIE TERAN Procedure: US OB umbilical artery EXAMINATION: US OB umbilical artery HISTORY: Non-reactive NST COMPARISON: No relevant comparison available. TECHNIQUE: Duplex Doppler evaluation of the umbilical arteries. FINDINGS: HEART RATE: 141 bpm UMBILICAL ARTERIES: 2 GESTATIONAL AGE: 35 weeks 6 days WAVEFORM: Occasional early heartbeat. Normal upstroke. No notching. Forward flow in diastole. PEAK SYSTOLIC VELOCITY: 90 cm/s END DIASTOLIC VELOCITY: 36 cm/s SYST/DIAST RATIO (S:D): 2.6 RESISTIVE INDEX: 0.61 US/US OB umbilical artery IMPRESSION: 1. Class 0 = Normal umbilical artery blood velocity 2. Occasional premature heartbeat within umbilical artery suggesting maternal early heartbeat. Electronically authenticated by: JOSÉ MIGUEL LIMON Date: 03/13/2024 11:01
== END 2024-03-13 10:20 | disposition home or self-care (01) ==
LOC: FBCO 06:56 → FBC 08:00
PROVIDERS: Visit Provider Obstetrics & Gynecology
DX: O24.419 Gestational diabetes mellitus in pregnancy, unspecified control (principal); Z3A.35 35 weeks gestation of pregnancy
CPT/HCPCS: 59025; 76818; 76820

== ENCOUNTER 2024-03-15 11:09 | Outpatient (OUT) | payer BC, SELFPAY ==
--- OUTSIDE RECORDS SUMMARY | 2024-03-15 11:12 | XMS_ITS | CCD ---
Author Organization [facility] Care Team Providers Care Marriage Counselor Name Role Phone Unavailable Primary Care Provider UnavailMORALES Renner Referring Unavailable NON STAFF Primary Care Provider UnavailDO Dom Cerda Jr Attending Provider [phone] Bhavya Estrada Primary Care Unavailable Bhavya Estrada [...] (2 sources) Amoxicillin; Translations: [amoxicillin] Drug Allergy [facility] Repository (1 source) tiZANidine; Translations: [tiZANidine] Drug Allergy [facility] Repository Problems Problem Classification Problem [...] 08-23-2022 BASO # 0.1 103/ul Normal 0.0-0.1 [facility] Comment on above: Performed By: #### C BC #### [facility] [address] [place] [address] Dr. Car Lozada Basophils/100 WBC (Bld) 0.5 % Normal 0.2-2.0 [facility] Comment on above: Performed By: #### C BC #### [facility] [address] [place] [address] Dr. Car Lozada EO # 0.6 103/ul Normal 0.0-0.7 [facility] Comment on above: Performed By: #### C BC #### [facility] [address] [place] [address] Dr. Car Lozada Eosinophils/100 WBC (Bld) 5.9 % Normal 0.9-7.0 [facility] Comment on above: Performed By: #### C BC #### [facility] [address] [place] [address] Dr. Car Lozada Erythrocyte distribution width (RBC) [Ratio] 12.6 % Normal 11.0-15.0 [facility] Comment on above: Performed By: #### C BC #### [facility] [address] [place] [address] Dr. Car Lozada Hematocrit (Bld) [Volume fraction] 42.0 % Normal 36.0-48.0 [facility] Comment on above: Performed By: #### C BC #### [facility] [address] [address] [address] Car Lozada Hemoglobin (Bld) [Mass/Vol] 14.1 g/dL Normal 12.0-16.0 [facility] Comment on above: Performed By: #### C BC #### [facility] [address] [address] [address] Car Lozada IG # 0.04 10e3/ul Critically high 0.00-0.03 [facility] Comment on above: Performed By: #### C BC #### [facility] [address] [place] [address] Dr. Car Lozada IG % 0.4 % Normal 0.0-0.5 [facility] Comment on above: Performed By: #### C BC #### [facility] [address] [place] [address] Dr. Car Lozada LYMPH # 3.6 103/ul Normal 1.2-3.[address] [facility] Comment on above: Performed By: #### C BC #### [facility] [address] [place] [address] Dr. Car Lozada Lymphocytes/100 WBC (Bld) 34.7 % Normal 20.5-60.0 [facility] Comment on above: Performed By: #### C BC #### [facility] [address] [place] [address] Dr. Car Lozada MANUAL DIFF REQ NO Normal [facility] Comment on above: Performed By: #### C BC #### [facility] [address] [place] [address] Dr. Car Lozada MCH (RBC) [Entitic mass] 31.2 pg Normal 26.7-34.0 [facility] Comment on above: Performed By: #### C BC #### [facility] [address] [place] [address] Dr. Car Lozada MCHC (RBC) [Mass/Vol] 33.6 g/dL Normal 29.9-35.2 [facility] Comment on above: Performed By: #### C BC #### [facility] [address] [place] [address] Dr. Car Lozada MCV (RBC) [Entitic vol] 92.9 fL Normal 81.0-99.0 [facility] Comment on above: Performed By: #### C BC #### [facility] [address] [place] [address] Dr. Car Lozada MONO # 0.9 103/ul Critically high 0.3-0.8 [facility] Comment on above: Performed By: #### C BC #### [facility] [address] [place] [address] Dr. Car Lozada Monocytes/100 WBC (Bld) 8.3 % Normal 1.7-12.0 [facility] Comment on above: Performed By: #### C BC #### [facility] [address] [place] [address] Dr. Car Lozada NEUT # 5.2 103/ul Normal 1.4-6.5 [facility] Comment on above: Performed By: #### C BC #### [facility] [address] [place] [address] Dr. Car Lozada Neutrophils/100 WBC (Bld) 50.2 % Normal 43.0-75.0 [facility] Comment on above: Performed By: #### C BC #### [facility] [address] [place] [address] Dr. Car Lozada Platelet mean volume (Bld) [Entitic vol] 10.0 fL Normal 9.5-13.5 [facility] Comment on above: Performed By: #### C BC #### [facility] [address] [place] [address] Dr. Car Lozada PLT 251 103/ul Normal 150-[address] [facility] Comment on above: Performed By: #### C BC #### [facility] [address] [place] [address] Dr. Car Lozada RBC 4.52 106/ul Normal 4.20-5.40 [facility] Comment on above: Performed By: #### C BC #### [facility] [address] [place] [address] Dr. Car Lozada WBC 10.3 103/ul Normal 4.0-11.0 [facility] Comment on above: Performed By: #### C BC #### [facility] [address] [place] [address] Dr. Car Lozada PREG QUANT HCGon 08-23-2022 HCG QUANT <1 Normal [facility] Comment on above: Performed By: #### P REGQNT #### [facility] [address] [place] [address] Dr. Car Lozada HCG RANGE SEE BELOW Normal [facility] Comment on above: Result Comment: 5-50 0.2-1 WEEK 50-500 1-2 WEEKS 100-5,000 2-3 WEEKS 500-10,000 3-4 WEEKS 1,000-50,000 4-5 WEEKS 10,000-100,000 5-6 WEEKS 15,000-200,000 6-8 WEEKS 10,000-100,000 2-3 MONTHS Performed By: #### P REGQNT #### [facility] [address] [place] [address] Dr. Car Lozada XR CHEST 2 Von [...] process or suspicious findings. Electronically authenticated by: JOS ÉMIGUEL LIMON Date: 2022-08-16 10:17 Normal [facility] PAP ACOG PANEL 2: 21 to 29on 06-25-2022 . . Normal [facility] Comment on above: Performed By: #### [id number] #### [facility] [address] [place] [address] Dr. Car Lozada Age Gdln ACOG Testing 21-29 Normal [facility] Comment on above: Performed By: #### 4 [id number] #### [facility] [address] [place] [address] Dr. Car Lozada DIAGNOSIS: Comment Abnormal [facility] Comment on above: Result Comment: EPIT HELIAL CELL ABNORMALITY. LOW GRADE SQUAMOUS INTRAEPITHELIAL LESION (LSIL). Performed By: #### [id number] #### [facility] [address] [place] [address] Dr. Car Lozada Electronically signed by: Comment Normal [facility] Comment on above: Result Comment: Phyllis Vital MD, Pathologist Performed By: #### 4 [id number] #### [facility] [address] [address] [address] Car Lozada Methodology: Comment Normal [facility] Comment on above: Result Comment: This liquid based ThinPrep(R) pap test was screened with the use of an image guided system. Performed By: #### 4 [id number] #### [facility] [address] [place] [address] Dr. Car Lozada Note: Comment Normal [facility] Comment on above: Result Comment: The Pap smear is a screening test designed to aid in the detection of premalignant and malignant conditions of the uterine cervix. It is not a diagnostic procedure and should not be used as the sole means of detecting cervical cancer. Both false-positive and false-negative reports do occur. . Performed By: #### 4 [id number] #### [facility] [address] [place] [address] Dr. Car Lozada Pathologist Provided ICD10 Comment Normal [facility] Comment on above: Result Comment: [id number]. [id number] Performed By: #### 4 [id number] #### [facility] [address] [place] [address] Dr. Car Lozada Performed by: Comment Normal [facility] Comment on above: Result Comment: Sidney Masters, Communications Field Technician (ASCP) Performed By: #### 4 [id number] #### [facility] [address] [place] [address] Dr. Car Lozada Recommendation: Comment Abnormal [facility] Comment on above: Result Comment: Sugg est follow up as clinically appropriate. Performed By: #### 4 [id number] #### [facility] [address] [address] [address] Car Lozada Reflex Criteria: Comment Normal [facility] Comment on above: Result Comment: The HPV DNA reflex criteria were not met with this specimen result therefore, no HPV testing was performed. . Performed By: #### 4 [id number] #### [facility] [address] [address] [address] Car Lozada Specimen adequacy: Comment Normal [facility] Comment on above: Result Comment: Sati sfactory for evaluation. Endocervical and/or squamous metaplastic cells (endocervical component) are present. Performed By: #### 4 [id number] #### [facility] [address] [address] [address] Car Lozada Body fluid albumin measureme nt (mass/volume)Ordered By: Dom Paulino on 12-22-2021 Albumin (Body fld) [Mass/Vol] 3.4 g/dL 3.2-5.5 [facility] Cholesterol [Mass/volume] in Serum or PlasmaOrdered By: Dom Paulino on 12-22-2021 Cholesterol [Mass/Vol] 228 mg/dL 140-200 [facility] Comment on above: Chol less than 200 m g/dl low risk Chol 201-239 mg/dl borderline risk Chol 240 mg/dl and greater high risk Cholesterol in LDL Calc [Mas s/Vol]Ordered By: Dom Paulino on 12-22-2021 Cholesterol in LDL [Mass/Vol] 136 mg/dL 0-100 [facility] Comment on above: LDL ATP III CLASSIFI CATION LDL less than 100 mg/dL Optimal LDL 100-129 mg/dL Near or above optimal LDL 130-159 mg/dL Borderline high LDL 160-189 mg/dL High LDL greater than 189 mg/dL Very high Cholesterol in VLDL Calc [Ma ss/Vol]Ordered By: Dom Paulino on 12-22-2021 Cholesterol in VLDL [Mass/Vol] 19 mg/dL [facility] Comprehensive Metabolic Empo n 12-22-2021 Albumin [Mass/Vol] 3.4 g/dL Normal 3.2-5.5 [facility] Comment on above: Performed By: #### E BS CMP, EBS LIPID #### [facility] [address] Albumin/Globulin [Mass ratio] 1.2 {ratio} Normal [facility] Comment on above: Performed By: #### E BS CMP, EBS LIPID #### [facility] [address] ALP [Catalytic activity/Vol] 48 U/L Normal 32-92 [facility] Comment on above: Performed By: #### E BS CMP, EBS LIPID #### [facility] [address] ALT [Catalytic activity/Vol] 14 U/L Normal 10-60 [facility] Comment on above: Performed By: #### E BS CMP, EBS LIPID #### [address] AST [Catalytic activity/Vol] 15 U/L Normal 10-42 [facility] Comment on above: Performed By: #### E BS CMP, EBS LIPID #### [address] Bilirubin [Mass/Vol] 0.3 mg/dL Normal 0.3-1.2 [facility] Comment on above: Performed By: #### E BS CMP, EBS LIPID #### [address] Calcium [Mass/Vol] 9.3 mg/dL Normal 8.2-10.2 [facility] Comment on above: Performed By: #### E BS CMP, EBS LIPID #### [facility] [address] [place] [address] [place] Chloride [Moles/Vol] 101 mmol/L Normal 95-114 [facility] Comment on above: Performed By: #### E BS CMP, EBS LIPID #### [facility] [address] [place] [address] [place] CO2 [Moles/Vol] 23.8 mmol/L Normal 22.0-30.0 [facility] Comment on above: Performed By: #### E BS CMP, EBS LIPID #### [facility] [address] [place] [address] [place] Creatinine [Mass/Vol] 0.79 mg/dL Normal 0.44-1.03 [facility] Comment on above: Performed By: #### E BS CMP, EBS LIPID #### [facility] [address] Estimated GFR ( Aleena > 60 Normal [facility] Comment on above: Result Comment: GFR estimated reference range: According to KDOQI guidelines, <60 ml/min/1.73m2 is sufficient to diagnose a patient with chronic kidney disease. Performed By: #### E BS CMP, EBS LIPID #### [facility] [address] Estimated GFR (Non- Am > 60 [facility] Comment on above: Performed By: #### E BS CMP, EBS LIPID #### [facility] [address] [place] [address] Globulin (S) [Mass/Vol] 2.8 g/dL Normal [facility] Comment on above: Performed By: #### E BS CMP, EBS LIPID #### [facility] [address] [place] [address] Glucose [Mass/Vol] 76 mg/dL Normal 70-100 [facility] Comment on above: Performed By: #### E BS CMP, EBS LIPID #### [facility] [address] [place] [address] Potassium [Moles/Vol] 3.8 mmol/L Normal 3.5-5.1 [facility] Comment on above: Performed By: #### E BS CMP, EBS LIPID #### [facility] [address] [place] [address] Protein [Mass/Vol] 6.2 g/dL Normal 6.1-7.9 [facility] Comment on above: Performed By: #### E BS CMP, EBS LIPID #### [facility] [address] [place] [address] Sodium [Moles/Vol] 136 mmol/L Normal 136-146 [facility] Comment on above: Performed By: #### E BS CMP, EBS LIPID #### [facility] [address] [place] [address] [place] Urea nitrogen [Mass/Vol] 10 mg/dL Normal 9-23 [facility] Comment on above: Performed By: #### E SUSHIL ROA, EBS LIPID #### [facility] [address] [place] [address] [place] Creatinine and Glomerular fi ltration rate.predicted panel (S/P/Bld)Ordered By: Dom Paulino on 12-22-2021 Creatinine [Mass/Vol] 0.79 mg/dL 0.44-1.03 [facility] Estimated glomerular filtrat ion rate (GFR) non- AmericanOrdered By: Dom Paulino on 12-22-2021 GFR/1.73 sq M.predicted among non-blacks MDRD (S/P/Bld) [Vol rate/Area] > 60 mL/Min [facility] Globulin Calc (S) [Mass/Vol] Ordered By: Dom Paulino on 12-22-2021 Globulin (S) [Mass/Vol] 2.8 g/dL [facility] - Chemistry and C hemistry - challengeOrdered By: Dom Paulino on 12-22-2021 Glucose [Mass/Vol] 76 mg/dL 70-100 [facility] Lipid Profileon 12-22-2021 Cholesterol [Mass/Vol] 228 mg/dL High 140-200 [facility] Comment on above: Result Comment: Chol less than 200 mg/dl low risk Chol 201-239 mg/dl borderline risk Chol 240 mg/dl and greater high risk Performed By: #### E SUSHIL ROA, EBS LIPID #### [facility] [address] [place] [address] [place] Cholesterol in HDL [Mass/Vol] 73 mg/dL Normal 35-85 [facility] Comment on above: Result Comment: HDL CHOL ATP-III CLASSIFICATION Cardiovascular Risk HDL > or equal to 60 mg/dL LOW HDL < 40 mg/dL HIGH Performed By: #### E BS CMP, EBS LIPID #### [facility] [address] [place] [address] [place] Cholesterol.total/Janey sterol in HDL [Mass ratio] 3.1 {ratio} Normal <5.0 [facility] Comment on above: Result Comment: PERF ORMED BY: [place] [address] PATHOLOGIST CIVIL DESIGN TECHNICIAN DENYS WOO M.D. Performed By: #### E BS CMP, EBS LIPID #### [facility] [address] LDL Cholesterol,Calculated 136 mg/dL High 0-100 [facility] Comment on above: Result Comment: LDL ATP III CLASSIFICATION LDL less than 100 mg/dL Optimal LDL 100-129 mg/dL Near or above optimal LDL 130-159 mg/dL Borderline high LDL 160-189 mg/dL High LDL greater than 189 mg/dL Very high Performed By: #### E BS CMP, EBS LIPID #### [address] Triglyceride w/Reflex 95 mg/dL Normal 35-149 [facility] Comment on above: Result Comment: TRIG ATP III CLASSIFICATION TRIG less than 150 mg/dL Normal TRIG 150-199 mg/dL Borderline high TRIG 200-500 mg/dL High TRIG greater than 500 mg/dL Very high Standard traceable to the Center for Disease Conrtrol and Prevention (CDC) test method. Performed By: #### E BS CMP, EBS LIPID #### [facility] [address] [place] [address] VLDL CHOLESTEROL 19 mg/dL Normal [facility] Comment on above: Performed By: #### E BS CMP, EBS LIPID #### [facility] [address] [place] [address] No Panel InformationOrdered By: Dom Paulino on 12-22-2021 Estimated GFR () > 60 mL/Min [facility] Comment on above: GFR estimated refere nce range: According to KDOQI guidelines, <60 ml/min/1.73m2 is sufficient to diagnose a patient with chronic kidney disease. Pharmacy Creatinine Clearance (Chem N/A [facility] Triglycerides Reflex 95 mg/dL 35-149 [facility] Comment on above: TRIG ATP III CLASSIF ICATION TRIG less than 150 mg/dL Normal TRIG 150-199 mg/dL Borderline high TRIG 200-500 mg/dL High TRIG greater than 500 mg/dL Very high Standard traceable to the Center for Disease Conrtrol and Prevention (CDC) test method. Protein [Mass/volume] in Ser um or PlasmaOrdered By: Dom Paulino on 12-22-2021 Protein [Mass/Vol] 6.2 g/dL 6.1-7.9 [facility] Serum or plasma alanine pan otransferase measurement without P-5'-P (enzymatic activiOrdered By: Dom Paulino on 12-22-2021 ALT No additional P-5'-P [Catalytic activity/Vol] 14 U/L 10-60 [facility] Serum or plasma albumin/glob ulin mass ratioOrdered By: Dom Paulino on 12-22-2021 Albumin/Globulin [Mass ratio] 1.2 {ratio} [facility] Serum or plasma alkaline nina sphatase measurement (enzymatic activity/volume)Ordered By: Dom Paulino on 12-22-2021 ALP [Catalytic activity/Vol] 48 U/L 32-92 [facility] Serum or plasma aspartate am inotransferase measurement (enzymatic activity/volume)Ordered By: Dom Paulino on 12-22-2021 AST [Catalytic activity/Vol] 15 U/L 10-42 [facility] Serum or plasma calcium dexter urement (mass/volume)Ordered By: Dom Paulino on 12-22-2021 Calcium [Mass/Vol] 9.3 mg/dL 8.2-10.2 [facility] Serum or plasma chloride glenis surement (moles/volume)Ordered By: Dom Paulino on 12-22-2021 Chloride [Moles/Vol] 101 mmol/L 95-114 [facility] Serum or plasma high density lipoprotein (HDL) cholesterol measurementOrdered By: Dom Paulino on 12-22-2021 Cholesterol in HDL [Mass/Vol] 73 mg/dL 35-85 [facility] Comment on above: HDL CHOL ATP-III CLA SSIFICATION Cardiovascular Risk HDL > or equal to 60 mg/dL LOW HDL < 40 mg/dL HIGH Serum or plasma potassium me asurement (moles/volume)Ordered By: Dom Paulino on 12-22-2021 Potassium [Moles/Vol] 3.8 mmol/L 3.5-5.1 [facility] Serum or plasma sodium measu rement (moles/volume)Ordered By: Dom Paulino on 12-22-2021 Sodium [Moles/Vol] 136 mmol/L 136-146 [facility] Serum or plasma total biliru bin measurement (mass/volume)Ordered By: Dom Paulino on 12-22-2021 Bilirubin [Mass/Vol] 0.3 mg/dL 0.3-1.2 [facility] Serum or plasma total carbon dioxide measurement (moles/volume)Ordered By: Dom Paulino on 12-22-2021 CO2 [Moles/Vol] 23.8 mmol/L 22.0-30.0 [facility] Serum or plasma total choles terol/high density lipoprotein (HDL) cholesterol mass ratOrdered By: Dom Paulino on 12-22-2021 Cholesterol.total/Janey sterol in HDL [Mass ratio] 3.1 {ratio} [facility] Serum or plasma urea nitroge n measurement (mass/volume)Ordered By: Dom Paulino on 12-22-2021 Urea nitrogen [Mass/Vol] 10 mg/dL 9-23 [facility] Outside Recordson 09-13-2021 Outside Records [id number]# 1.00[facility] Outside Recordson 08-28-2021 Outside Records [id number] #1.00[facility] Outside Records [id number] #1.00[facility] Consent Formson 07-14-2021 Consent Forms [id number] [address] [place] [address] Progress Note - Nurseon Progress Note - Nurse Antigen test ordered, test resulted positive, patient informed of positive result. In house test ordered, patient informed and swabbed, specimen sent to lab. [Electronically Signed on: 07/11/2021 16:04 EST] Kamini Tovar RN [Verified on: 07/11/2021 16:04 EST] Kamini Tovar RN [facility] Progress Note - Nurse Antigen test ordered, test resulted negative, patient informed of negative result. [Electronically Signed on: 07/11/2021 11:45 EST] Kamini Tovar RN [Verified on: 07/11/2021 11:45 EST] Kamini Tovar RN [facility] Measles (Rubeola) Imon 11-28 Measles (Rubeola) Im 3.49 Normal >1.09 [facility] Comment on above: Result Comment: Interpretation: IMMUNE Reference Range: <0.91 Not Immune 0.91-1.09 Equivocal >1.09 Immune Performed By: #### M EI, JUDY, VZI, TSPOT, MEÑO #### [address] [address] Switch Operator: Maury Watts MD Mumps,Immun,Abon 11-28-2020 Mumps,Immun,Ab 1.48 Normal >1.09 [facility] Comment on above: Result Comment: Interpretation: IMMUNE Reference Range: <0.91 Not Immune 0.91-1.09 Equivocal >1.09 Immune Performed By: #### M EI, JUDY, VZI, TSPOT, MEÑO #### [facility] [employer] [address] [place] [id number] Switch Operator: Maury Watts MD T-Spoton 11-28-2020 T-Spot. TB Test Normal [facility] Comment on above: Result Comment: [facility] [employer] [address] [place] [id number] (NOTE) T-SPOT.TB Test Results --------- T-SPOT TB [...] M EI, JUDY, VZI, TSPOT, MEÑO #### [employer] [address] [place] [address] Switch Operator: Maury Watts MD VZ Immunityon 11-28-2020 VZ Immunity 2.04 Normal >1.09 [facility] Comment on above: Result Comment: Interpretation: IMMUNE Reference Range: <0.91 Not Immune 0.91-1.09 Equivocal >1.09 Immune Performed By: #### M EI, JUDY, VZI, TSPOT, MEÑO #### [employer] [address] [place], [place] [id number] Switch Operator: Maury Watts MD Rubella Ab, IgGon 11-25-2020 Rubella Ab, IgG 150.4 IU/mL Normal [facility] Comment on above: Result Comment: REFERENCE RANGE: <5.0 NON-REACTIVE (non-immune) 5.0 TO 9.9 EQUIVOCAL >=10.0 REACTIVE (immune) Performed By: #### M EI, JUDY, VZI, TSPOT, MEÑO #### [employer] [address] [id number] Switch Operator: Maury Watts MD Rubella antibody, IgGOrdered By: Morales Gardner on 11-25-2020 Rubella virus IgG Ql (S) 150.4 IU/mL [employer]: Comment on above: REFERENCE RANGE: <5.0 NON-REACTIVE (non-immune) 5.0 TO 9.9 EQUIVOCAL >=10.0 REACTIVE (immune) [employer] Phone: Encounters Encounter Date Encounter Type Care [...] ANGIE VIVAR . [facility] Start: 08-16-2022 End: 08-17-[address] ANGIE VIVAR . Facility:[facility] Start: 08-16-2022 End: 08-17-2022 Encounter for preprocedural respiratory examination DR ANGIE VIVAR . Facility:[facility] Start: 06-13-2022 End: 06-13-[address] ANGIE VIVAR . Facility:[facility] Start: 04-26-2022 End: 04-27-2022 ambulatory [facility] Facility:[facility] Start: 12-22-2021 End: 12-22-2021 Departed Referred [facility] RT 250 Start: 07-13-2021 End: 07-13-2021 ambulatory [facility] Facility:[facility] Start: 07-12-2021 End: 07-12-2021 ambulatory [facility] Facility:[facility] Start: 11-25-2020 End: 11-26-2020 ambulatory [facility] Start: 11-25-2020 End: 11-25-2020 Subsequent hospital visit by physician [facility] Laboratory Procedures Date Procedure Procedure Detail Performing Clinician Start: 11-25-2020 Antibody rubella Omkar Gardner MD Work Phone: Plan of Treatment Date Care Activity Detail Author Start: 03-08-2021 Influenza vaccination Flu vacc ine (Season Ended) [facility] Phone: Start: 2005 COVID-19 Vaccine (1) COVID-19 Vaccin e (1) [facility] Phone: End: 11-25-2020 Mumps Antibody, IgG Mumps Antibody, IgG Lab Routine Once for 1 Occurrences starting 11/25/2020 until 11/25/2020 [facility] Phone: Comment on above: Once for 1 Occurrenc es starting 11/25/2020 until 11/25/2020 Mumps Antibody, IgG Mumps Antibo dy, IgG Lab Routine 11/25/2020 3:18 PM EDT [facility] Phone: End: 11-25-2020 Rubeola Antibody, IgG Rubeola Antibody, IgG Lab Routine Once for 1 Occurrences starting 11/25/2020 until 11/25/2020 [facility] Phone: Comment on above: Once for 1 Occurrenc es starting 11/25/2020 until 11/25/2020 Rubeola Antibody, IgG Rubeola An tibody, IgG Lab Routine 11/25/2020 3:18 PM EDT [facility] Phone: End: 11-25-2020 Tb antigen response gamma interferon t-cell susp T-Spot TB Test Lab Routine Once for 1 Occurrences starting 11/25/2020 until 11/25/2020 [facility] Phone: Comment on above: Once for 1 Occurrenc es starting 11/25/2020 until 11/25/2020 Tb antigen response gamma interferon t-cell susp T-Spot TB Test Lab Routine 11/25/2020 3:18 PM EDT [facility] Phone: End: 11-25-2020 Varicella Zoster Antibody, IgG Varicella Zoster Antibody, IgG Lab Routine Once for 1 Occurrences starting 11/25/2020 until 11/25/2020 [facility] Phone: Comment on above: Once for 1 Occurrenc es starting 11/25/2020 until 11/25/2020 Varicella Zoster Antibody, IgG Varicella Zoster Antibody, IgG Lab Routine 11/25/2020 3:18 PM EDT [facility] Phone: Payers Date Payer Category Payer Unknown [id number] 2020 Unknown [id number] 1993 Unknown [id number] 2.16.84 [id number] 1993 Unknown [id number] 2.16.84 0.1.795393.3.579.2.593 1993 Unknown [id number] 2.16.84 0.1.714907.3.579.2.593 1993 Unknown [id number] 2.16.84 0.1.583188.3.579.2.593 1993 Unknown [id number] 2.16.84 0.1.573017.3.579.2.9 1993 Unknown [id number] 2.16.84 0.1.240443.3.579.2.1258 1993 Unknown [id number] 2.16.84 0.1.322048.3.579.2.1258 1993 Unknown [id number] 2.16.84 0.1.827910.3.579.2.1258 1993 Unknown [id number] 2.16.84 0.1.760504.3.579.2.1258 1993 Unknown [id number] 2.16.84 0.1.000040.3.579.2.1258 1993 Unknown [id number] 2.16.84 0.1.184564.3.579.2.9 1993 Unknown [id number] 2.16.84 0.1.495830.3.579.2.1258 1993 Unknown [id number] 2.16.84 0.1.623601.3.579.2.9 1993 Unknown [id number] 2.16.840. 1.777362.3.579.2.9 1959 Unknown [id number] Self-pay Self Pay [id number] Social History Date Type Detail Facility Tobacco smoking stat [facility] Unknown if ever smoked [facility] Phone: Start: 1995 Sex Assigned At Not on file [facility] [employer] Phone: Start: 1995 Sex Assigned At Female [facility] Clinical Note 08-23-2022 Note Date & Type Note Facility 08-23-2022 Note OPERATIVE NOTE OPERATION DATE: 08/23/2022 PROCEDURE: LEEP Procedure. PREOPERATIVE DIAGNOSIS: Cervical dysplasia. POSTOPERATIVE DIAGNOSIS: Cervical dysplasia. ANESTHESIA: General. SURGEON: Angie Vivar D.O. BASIC SCIENCES DEAN: None. BLOOD LOSS: 5 mL. SPECIMEN: Ectocervical [...] in stable condition. [facility] Medication management note 06-11-2022 Note Date & Type Note Facility 06-11-2022 Note Entered by Diane Wadsworth on June 11, 2022 09:44:53 EST From: Diane Wadsworth To: [facility] #[id number] Sent: 06/11/2022 09:44:53 EST Subject: Medication Management Submitted: Complete:desogestrel-ethinyl estradiol (Velivet oral tablet) Signed by Diane Wadsworth 06/11/2022 09:44:00 EST Approved desogestrel-ethinyl estradiol (VELIVET 28 DAY TABLET) take 1 tablet by mouth once daily Qty: 84 tab(s) Days Supply: 84 Refills: 0 Substitutions Allowed Route To Pharmacy - [facility] #[id number] Signed by Diane Wadsworth Patient matched by Diane Wadsworth on 06/11/2022 09:41:06 EST From: [facility][id number] To: Bhavya Estrada MD Sent: June 11, 2022 8:39:02 AM 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 Due: June 12, 2022 12:05:33 AM 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 + PUBLISHER On Hold Pending Signature Drug: desogestrel-ethinyl estradiol (Velivet oral tablet), take 1 tablet by mouth once daily Quantity: 84 tab(s) Days Supply: 84 Refills: 1 Substitutions Allowed Notes from Pharmacy: Dispensed Drug: desogestrel-ethinyl estradiol (Velivet oral tablet), take 1 tablet by mouth once daily Quantity: 84 tab(s) Days Supply: 84 Refills: 0 Substitutions Allowed Notes from Pharmacy: [facility] Evaluation note Note Date & Type Note Facility Evaluation note No assessment information availa [facility] Work Phone: Summary Purpose Family History [...] section and content) DATE CREATED AUTHOR 12/02/2020 [facility] DATE CREATED AUTHOR AUTHOR'S ORGANIZ ATION 12/23/2021 [facility] DATE CREATED AUTHOR AUTHOR'S ORGANIZ ATION 06/11/2022 [facility] DATE CREATED AUTHOR AUTHOR'S ORGANIZ ATION 09/05/2022 [facility] DATE CREATED AUTHOR AUTHOR'S ORGANIZ ATION 03/05/2024 [facility] EPIC Care Teams (unrecognized sec tion [...] BE BASED ON THE PRIMARY CLINICAL RECORDS. [employer] provides no warranty or guarantee of the accuracy or completeness of information in this document.
[2024-03-15 11:19] VITALS: BP 137/88; PULSE 94; TEMP 36.4
--- OUTSIDE RECORDS SUMMARY | 2024-03-17 06:52 | XMS_ITS | CCD ---
Author Organization [facility] Care Team Providers Care Freight Sales Broker Name Role Phone Unavailable Primary Care Provider [...] (2 sources) Amoxicillin; Translations: [amoxicillin] Drug Allergy [facility] Repository (1 source) tiZANidine; Translations: [tiZANidine] Drug Allergy [facility] Repository Problems Problem Classification Problem [...] 08-23-2022 BASO # 0.1 103/ul Normal 0.0-0.1 [facility] Comment on above: Performed By: #### C BC #### [facility] [address] [place] [address] Dr. Car Lozada Basophils/100 WBC (Bld) 0.5 % Normal 0.2-2.0 [facility] Comment on above: Performed By: #### C BC #### [facility] [address] [place] [address] Dr. Car Lozada EO # 0.6 103/ul Normal 0.0-0.7 [facility] Comment on above: Performed By: #### C BC #### [facility] [address] [place] [address] Dr. Car Lozada Eosinophils/100 WBC (Bld) 5.9 % Normal 0.9-7.0 [facility] Comment on above: Performed By: #### C BC #### [facility] [address] [place] [address] Dr. Car Lozada Erythrocyte distribution width (RBC) [Ratio] 12.6 % Normal 11.0-15.0 [facility] Comment on above: Performed By: #### C BC #### [facility] [address] [place] [address] Dr. Car Lzoada Hematocrit (Bld) [Volume fraction] 42.0 % Normal 36.0-48.0 [facility] Comment on above: Performed By: #### C BC #### [facility] [address] [address] [address] Car Lozada Hemoglobin (Bld) [Mass/Vol] 14.1 g/dL Normal 12.0-16.0 [facility] Comment on above: Performed By: #### C BC #### [facility] [address] [address] [address] Car Lozada IG # 0.04 10e3/ul Critically high 0.00-0.03 [facility] Comment on above: Performed By: #### C BC #### [facility] [address] [place] [address] Dr. Car Lozada IG % 0.4 % Normal 0.0-0.5 [facility] Comment on above: Performed By: #### C BC #### [facility] [address] [place] [address] Dr. Car Lozada LYMPH # 3.6 103/ul Normal 1.2-3.8 [facility] Comment on above: Performed By: #### C BC #### [facility] [address] [place] [address] Dr. Car Lozada Lymphocytes/100 WBC (Bld) 34.7 % Normal 20.5-60.0 [facility] Comment on above: Performed By: #### C BC #### [facility] [address] [place] [address] Dr. Car Lozada MANUAL DIFF REQ NO Normal [facility] Comment on above: Performed By: #### C BC #### [facility] [address] [place] [address] Dr. Car Lozada MCH (RBC) [Entitic mass] 31.2 pg Normal 26.7-34.0 [facility] Comment on above: Performed By: #### C BC #### [facility] [address] [place] [address] Dr. Car Lozada MCHC (RBC) [Mass/Vol] 33.6 g/dL Normal 29.9-35.2 [facility] Comment on above: Performed By: #### C BC #### [facility] [address] [place] [address] Dr. Car Lozada MCV (RBC) [Entitic vol] 92.9 fL Normal 81.0-99.0 [facility] Comment on above: Performed By: #### C BC #### [facility] [address] [place] [address] Dr. Car Lzoada MONO # 0.9 103/ul Critically high 0.3-0.8 [facility] Comment on above: Performed By: #### C BC #### [facility] [address] [place] [address] Dr. Car Lozada Monocytes/100 WBC (Bld) 8.3 % Normal 1.7-12.0 [facility] Comment on above: Performed By: #### C BC #### [facility] [address] [place] [address] Dr. Car Lozada NEUT # 5.2 103/ul Normal 1.4-6.5 [facility] Comment on above: Performed By: #### C BC #### [facility] [address] [place] [address] Dr. Car Lozada Neutrophils/100 WBC (Bld) 50.2 % Normal 43.0-75.0 [facility] Comment on above: Performed By: #### C BC #### [facility] [address] [place] [address] Dr. Car Lozada Platelet mean volume (Bld) [Entitic vol] 10.0 fL Normal 9.5-13.5 [facility] Comment on above: Performed By: #### C BC #### [facility] [address] [place] [address] Dr. Car Lozada PLT 251 103/ul Normal 150-450 [facility] Comment on above: Performed By: #### C BC #### [facility] [address] [place] [address] Dr. Car Lozada RBC 4.52 106/ul Normal 4.20-5.40 [facility] Comment on above: Performed By: #### C BC #### [facility] [address] [place] [address] Dr. Car Lozada WBC 10.3 103/ul Normal 4.0-11.0 [facility] Comment on above: Performed By: #### C BC #### [facility] [address] [place] [address] Dr. Car Lozada PREG QUANT HCGon 08-23-2022 HCG QUANT <1 Normal [facility] Comment on above: Performed By: #### P REGQNT #### [facility] [address] [place] [address] Dr. Car Lozada HCG RANGE SEE BELOW Normal [facility] Comment on above: Result Comment: 5-50 0.2-1 WEEK 50-500 1-2 WEEKS 100-5,000 2-3 WEEKS 500-10,000 3-4 WEEKS 1,000-50,000 4-5 WEEKS 10,000-100,000 5-6 WEEKS 15,000-200,000 6-8 WEEKS 10,000-100,000 2-3 MONTHS Performed By: #### P REGQNT #### [facility] [address] [place] [address] Dr. Car Lozada XR CHEST 2 Von [...] JOSÉ MIGUEL LIMON Date: 2022-08-16 10:17 Normal [facility] PAP ACOG PANEL 2: 21 to 29on 06-25-2022 . . Normal [facility] Comment on above: Performed By: #### [id number] #### [facility] [address] [place] [address] Dr. Car Lozada Age Gdln ACOG Testing 21-29 Normal [facility] Comment on above: Performed By: #### [id number] #### [facility] [address] [place] [address] Dr. Car Lozada DIAGNOSIS: Comment Abnormal [facility] Comment on above: Result Comment: EPIT HELIAL CELL ABNORMALITY. LOW GRADE SQUAMOUS INTRAEPITHELIAL LESION (LSIL). Performed By: #### [id number] #### [facility] [address] [place] [address] Dr. Car Lozada Electronically signed by: Comment Normal [facility] Comment on above: Result Comment: Phyllis Vital MD, Pathologist Performed By: #### 4 [id number] #### [facility] [address] [address] [address] Car Lozada Methodology: Comment Normal [facility] Comment on above: Result Comment: This liquid based ThinPrep(R) pap test was screened with the use of an image guided system. Performed By: #### [id number] #### [facility] [address] [place] [address] Dr. Car Lozada Note: Comment Normal [facility] Comment on above: Result Comment: The Pap smear is a screening test designed to aid in the detection of premalignant and malignant conditions of the uterine cervix. It is not a diagnostic procedure and should not be used as the sole means of detecting cervical cancer. Both false-positive and false-negative reports do occur. . Performed By: #### [id number] #### [facility] [address] [place] [address] Dr. Car Lozada Pathologist Provided ICD10 Comment Normal [facility] Comment on above: Result Comment: [id number] Performed By: #### 4 [id number] #### [facility] [address] [place] [address] Dr. Car Lozada Performed by: Comment Normal [facility] Comment on above: Result Comment: Sidney Masters, Hazardous Materials Driver (ASCP) Performed By: #### [id number] #### [facility] [address] [place] [address] Dr. Car Lozada Recommendation: Comment Abnormal [facility] Comment on above: Result Comment: Sugg est follow up as clinically appropriate. Performed By: #### 4 [id number] #### [facility] [address] [address] [address] Car Lozada Reflex Criteria: Comment Normal [facility] Comment on above: Result Comment: The HPV DNA reflex criteria were not met with this specimen result therefore, no HPV testing was performed. . Performed By: #### 4 [id number] #### [facility] [address] [address] [address] Car Lozada Specimen adequacy: Comment Normal [facility] Comment on above: Result Comment: Sati sfactory for evaluation. Endocervical and/or squamous metaplastic cells (endocervical component) are present. Performed By: #### 4 [id number] #### [facility] [address] [address] [address] Car Lozada Body fluid albumin measureme nt (mass/volume)Ordered By: Dom Paulino on 12-22-2021 Albumin (Body fld) [Mass/Vol] 3.4 g/dL 3.2-5.5 [facility] Cholesterol [Mass/volume] in Serum or PlasmaOrdered By: Dom Paulino on 12-22-2021 Cholesterol [Mass/Vol] 228 mg/dL 140-200 [facility] Comment on above: Chol less than 200 m g/dl low risk Chol 201-239 mg/dl borderline risk Chol 240 mg/dl and greater high risk Cholesterol in LDL Calc [Mas s/Vol]Ordered By: Dom Paulino on 12-22-2021 Cholesterol in LDL [Mass/Vol] 136 mg/dL 0-100 [facility] Comment on above: LDL ATP III CLASSIFI CATION LDL less than 100 mg/dL Optimal LDL 100-129 mg/dL Near or above optimal LDL 130-159 mg/dL Borderline high LDL 160-189 mg/dL High LDL greater than 189 mg/dL Very high Cholesterol in VLDL Calc [Ma ss/Vol]Ordered By: Dom Paulino on 12-22-2021 Cholesterol in VLDL [Mass/Vol] 19 mg/dL [facility] Comprehensive Metabolic Empo n 12-22-2021 Albumin [Mass/Vol] 3.4 g/dL Normal 3.2-5.5 [facility] Comment on above: Performed By: #### E BS CMP, EBS LIPID #### [facility] [address] Albumin/Globulin [Mass ratio] 1.2 {ratio} Normal [facility] Comment on above: Performed By: #### E BS CMP, EBS LIPID #### [facility] [address] ALP [Catalytic activity/Vol] 48 U/L Normal 32-92 [facility] Comment on above: Performed By: #### E BS CMP, EBS LIPID #### [facility] [address] ALT [Catalytic activity/Vol] 14 U/L Normal 10-60 [facility] Comment on above: Performed By: #### E BS CMP, EBS LIPID #### [address] AST [Catalytic activity/Vol] 15 U/L Normal 10-42 [facility] Comment on above: Performed By: #### E BS CMP, EBS LIPID #### [address] Bilirubin [Mass/Vol] 0.3 mg/dL Normal 0.3-1.2 [facility] Comment on above: Performed By: #### E BS CMP, EBS LIPID #### [address] Calcium [Mass/Vol] 9.3 mg/dL Normal 8.2-10.2 [facility] Comment on above: Performed By: #### E BS CMP, EBS LIPID #### [facility] [address] [place] [address] [place] Chloride [Moles/Vol] 101 mmol/L Normal 95-114 [facility] Comment on above: Performed By: #### E BS CMP, EBS LIPID #### [facility] [address] [place] [address] [place] CO2 [Moles/Vol] 23.8 mmol/L Normal 22.0-30.0 [facility] Comment on above: Performed By: #### E BS CMP, EBS LIPID #### [facility] [address] [place] [address] [place] Creatinine [Mass/Vol] 0.79 mg/dL Normal 0.44-1.03 [facility] Comment on above: Performed By: #### E BS CMP, EBS LIPID #### [facility] [address] Estimated GFR ( Aleena > 60 Normal [facility] Comment on above: Result Comment: GFR estimated reference range: According to KDOQI guidelines, <60 ml/min/1.73m2 is sufficient to diagnose a patient with chronic kidney disease. Performed By: #### E BS CMP, EBS LIPID #### [facility] [address] Estimated GFR (Non- Am > 60 [facility] Comment on above: Performed By: #### E BS CMP, EBS LIPID #### [facility] [address] [place] [address] Globulin (S) [Mass/Vol] 2.8 g/dL Normal [facility] Comment on above: Performed By: #### E BS CMP, EBS LIPID #### [facility] [address] [place] [address] Glucose [Mass/Vol] 76 mg/dL Normal 70-100 [facility] Comment on above: Performed By: #### E BS CMP, EBS LIPID #### [facility] [address] [place] [address] Potassium [Moles/Vol] 3.8 mmol/L Normal 3.5-5.1 [facility] Comment on above: Performed By: #### E BS CMP, EBS LIPID #### [facility] [address] [place] [address] Protein [Mass/Vol] 6.2 g/dL Normal 6.1-7.9 [facility] Comment on above: Performed By: #### E BS CMP, EBS LIPID #### [facility] [address] [place] [address] Sodium [Moles/Vol] 136 mmol/L Normal 136-146 [facility] Comment on above: Performed By: #### E BS CMP, EBS LIPID #### [facility] [address] [place] [address] [place] Urea nitrogen [Mass/Vol] 10 mg/dL Normal 9-23 [facility] Comment on above: Performed By: #### E SUSHIL ROA, EBS LIPID #### [facility] [address] [place] [address] [place] Creatinine and Glomerular fi ltration rate.predicted panel (S/P/Bld)Ordered By: Dom Paulino on 12-22-2021 Creatinine [Mass/Vol] 0.79 mg/dL 0.44-1.03 [facility] Estimated glomerular filtrat ion rate (GFR) non- AmericanOrdered By: Dom Paulino on 12-22-2021 GFR/1.73 sq M.predicted among non-blacks MDRD (S/P/Bld) [Vol rate/Area] > 60 mL/Min [facility] Globulin Calc (S) [Mass/Vol] Ordered By: Dom Paulino on 12-22-2021 Globulin (S) [Mass/Vol] 2.8 g/dL [facility] - Chemistry and C hemistry - challengeOrdered By: Dom Paulino on 12-22-2021 Glucose [Mass/Vol] 76 mg/dL 70-100 [facility] Lipid Profileon 12-22-2021 Cholesterol [Mass/Vol] 228 mg/dL High 140-200 [facility] Comment on above: Result Comment: Chol less than 200 mg/dl low risk Chol 201-239 mg/dl borderline risk Chol 240 mg/dl and greater high risk Performed By: #### E SUSHIL ROA, EBS LIPID #### [facility] [address] [place] [address] [place] Cholesterol in HDL [Mass/Vol] 73 mg/dL Normal 35-85 [facility] Comment on above: Result Comment: HDL CHOL ATP-III CLASSIFICATION Cardiovascular Risk HDL > or equal to 60 mg/dL LOW HDL < 40 mg/dL HIGH Performed By: #### E BS CMP, EBS LIPID #### [facility] [address] [place] [address] [place] Cholesterol.total/Janey sterol in HDL [Mass ratio] 3.1 {ratio} Normal <5.0 [facility] Comment on above: Result Comment: PERF ORMED BY: [place] [address] PATHOLOGIST SURGERY SCHEDULING COORDINATOR DENYS WOO M.D. Performed By: #### E BS CMP, EBS LIPID #### [facility] [address] LDL Cholesterol,Calculated 136 mg/dL High 0-100 [facility] Comment on above: Result Comment: LDL ATP III CLASSIFICATION LDL less than 100 mg/dL Optimal LDL 100-129 mg/dL Near or above optimal LDL 130-159 mg/dL Borderline high LDL 160-189 mg/dL High LDL greater than 189 mg/dL Very high Performed By: #### E BS CMP, EBS LIPID #### [address] Triglyceride w/Reflex 95 mg/dL Normal 35-149 [facility] Comment on above: Result Comment: TRIG ATP III CLASSIFICATION TRIG less than 150 mg/dL Normal TRIG 150-199 mg/dL Borderline high TRIG 200-500 mg/dL High TRIG greater than 500 mg/dL Very high Standard traceable to the Center for Disease Conrtrol and Prevention (CDC) test method. Performed By: #### E BS CMP, EBS LIPID #### [facility] [address] [place] [address] VLDL CHOLESTEROL 19 mg/dL Normal [facility] Comment on above: Performed By: #### E BS CMP, EBS LIPID #### [facility] [address] [place] [address] No Panel InformationOrdered By: Dom Paulino on 12-22-2021 Estimated GFR () > 60 mL/Min [facility] Comment on above: GFR estimated refere nce range: According to KDOQI guidelines, <60 ml/min/1.73m2 is sufficient to diagnose a patient with chronic kidney disease. Pharmacy Creatinine Clearance (Chem N/A [facility] Triglycerides Reflex 95 mg/dL 35-149 [facility] Comment on above: TRIG ATP III CLASSIF ICATION TRIG less than 150 mg/dL Normal TRIG 150-199 mg/dL Borderline high TRIG 200-500 mg/dL High TRIG greater than 500 mg/dL Very high Standard traceable to the Center for Disease Conrtrol and Prevention (CDC) test method. Protein [Mass/volume] in Ser um or PlasmaOrdered By: Dom Paulino on 12-22-2021 Protein [Mass/Vol] 6.2 g/dL 6.1-7.9 [facility] Serum or plasma alanine pan otransferase measurement without P-5'-P (enzymatic activiOrdered By: Dom Paulino on 12-22-2021 ALT No additional P-5'-P [Catalytic activity/Vol] 14 U/L 10-60 [facility] Serum or plasma albumin/glob ulin mass ratioOrdered By: Dom Paulino on 12-22-2021 Albumin/Globulin [Mass ratio] 1.2 {ratio} [facility] Serum or plasma alkaline nina sphatase measurement (enzymatic activity/volume)Ordered By: Dom Paulino on 12-22-2021 ALP [Catalytic activity/Vol] 48 U/L 32-92 [facility] Serum or plasma aspartate am inotransferase measurement (enzymatic activity/volume)Ordered By: Dom Paulino on 12-22-2021 AST [Catalytic activity/Vol] 15 U/L 10-42 [facility] Serum or plasma calcium dexter urement (mass/volume)Ordered By: Dom Paulino on 12-22-2021 Calcium [Mass/Vol] 9.3 mg/dL 8.2-10.2 [facility] Serum or plasma chloride glenis surement (moles/volume)Ordered By: Dom Paulino on 12-22-2021 Chloride [Moles/Vol] 101 mmol/L 95-114 [facility] Serum or plasma high density lipoprotein (HDL) cholesterol measurementOrdered By: Dom Paulino on 12-22-2021 Cholesterol in HDL [Mass/Vol] 73 mg/dL 35-85 [facility] Comment on above: HDL CHOL ATP-III CLA SSIFICATION Cardiovascular Risk HDL > or equal to 60 mg/dL LOW HDL < 40 mg/dL HIGH Serum or plasma potassium me asurement (moles/volume)Ordered By: Dom Paulino on 12-22-2021 Potassium [Moles/Vol] 3.8 mmol/L 3.5-5.1 [facility] Serum or plasma sodium measu rement (moles/volume)Ordered By: Dom Paulino on 12-22-2021 Sodium [Moles/Vol] 136 mmol/L 136-146 [facility] Serum or plasma total biliru bin measurement (mass/volume)Ordered By: Dom Paulino on 12-22-2021 Bilirubin [Mass/Vol] 0.3 mg/dL 0.3-1.2 [facility] Serum or plasma total carbon dioxide measurement (moles/volume)Ordered By: Dom Paulino on 12-22-2021 CO2 [Moles/Vol] 23.8 mmol/L 22.0-30.0 [facility] Serum or plasma total choles terol/high density lipoprotein (HDL) cholesterol mass ratOrdered By: Dom Paulino on 12-22-2021 Cholesterol.total/Janey sterol in HDL [Mass ratio] 3.1 {ratio} [facility] Serum or plasma urea nitroge n measurement (mass/volume)Ordered By: Dom Paulino on 12-22-2021 Urea nitrogen [Mass/Vol] 10 mg/dL 9-23 [facility] Outside Recordson 09-13-2021 Outside Records [id number]# 1.00[facility] Outside Recordson 08-28-2021 Outside Records [id number] #1.00[facility] Outside Records [id number] #1.00[facility] Consent Formson 07-14-2021 Consent Forms [id number] [address] [place] [address] Progress Note - Nurseon Progress Note - Nurse Antigen test ordered, test resulted positive, patient informed of positive result. In house test ordered, patient informed and swabbed, specimen sent to lab. [Electronically Signed on: 07/11/2021 16:04 EST] Kamini Tovar RN [Verified on: 07/11/2021 16:04 EST] Kamini Tovar RN [facility] Progress Note - Nurse Antigen test ordered, test resulted negative, patient informed of negative result. [Electronically Signed on: 07/11/2021 11:45 EST] Kamini Tovar RN [Verified on: 07/11/2021 11:45 EST] Kamini Tovar RN [facility] Measles (Rubeola) Imon 11-28 Measles (Rubeola) Im 3.49 Normal >1.09 [facility] Comment on above: Result Comment: Interpretation: IMMUNE Reference Range: <0.91 Not Immune 0.91-1.09 Equivocal >1.09 Immune Performed By: #### M EI, JUDY, VZI, TSPOT, MEÑO #### [address] [address] Fire Sprinkler Apparatus Inspector: Maury Watts MD Mumps,Immun,Abon 11-28-2020 Mumps,Immun,Ab 1.48 Normal >1.09 [facility] Comment on above: Result Comment: Interpretation: IMMUNE Reference Range: <0.91 Not Immune 0.91-1.09 Equivocal >1.09 Immune Performed By: #### M EI, JUDY, VZI, TSPOT, MEÑO #### [facility] [employer] [address] [place] [address] [employer] Sprinkler Apparatus Inspector: Maury Watts MD T-Spoton 11-28-2020 T-Spot. TB Test Normal [facility] Comment on above: Result Comment: [facility] [email or web address] [address] [place] [id number] (NOTE) T-SPOT.TB Test Results --------- T-SPOT TB [...] M EI, JUDY, VZI, TSPOT, MEÑO #### [employer] [address] [place] [address] [employer] Sprinkler Apparatus Inspector: Maury Watts MD VZ Immunityon 11-28-2020 VZ Immunity 2.04 Normal >1.09 [facility] Comment on above: Result Comment: Interpretation: IMMUNE Reference Range: <0.91 Not Immune 0.91-1.09 Equivocal >1.09 Immune Performed By: #### M EI, JUDY, VZI, TSPOT, MEÑO #### [employer] [address] [place], [place] [id number] Fire Sprinkler Apparatus Inspector: Maury Watts MD Rubella Ab, IgGon 11-25-2020 Rubella Ab, IgG 150.4 IU/mL Normal [facility] Comment on above: Result Comment: REFERENCE RANGE: <5.0 NON-REACTIVE (non-immune) 5.0 TO 9.9 EQUIVOCAL >=10.0 REACTIVE (immune) Performed By: #### M EI, JUDY, VZI, TSPOT, MEÑO #### [employer] [address] [id number] Fire Sprinkler Apparatus Inspector: Maury Watts MD Rubella antibody, IgGOrdered By: Morales Gardner on 11-25-2020 Rubella virus IgG Ql (S) 150.4 IU/mL [employer] Phone: Comment on above: REFERENCE RANGE: <5.0 NON-REACTIVE (non-immune) 5.0 TO 9.9 EQUIVOCAL >=10.0 REACTIVE (immune) [employer] Phone: Encounters Encounter Date Encounter Type Care [...] respiratory examination DR ANGIE VIVAR . [facility] Start: 08-16-2022 End: 08-17-[address] ANGIE VIVAR . Facility:[facility] Start: 08-16-2022 End: 08-17-2022 Encounter for preprocedural respiratory examination DR ANGIE VIVAR . Facility:[facility] Start: 06-13-2022 End: 06-13-[address] ANGIE VIVAR . Facility:[facility] Start: 04-26-2022 End: 04-27-2022 ambulatory [facility] Facility:[facility] Start: 12-22-2021 End: 12-22-2021 Departed Referred [facility] [address] Start: 07-13-2021 End: 07-13-2021 ambulatory [facility] Facility:[facility] Start: 07-12-2021 End: 07-12-2021 ambulatory [facility] Facility:[facility] Start: 11-25-2020 End: 11-26-2020 ambulatory MORALES GARDNER [facility] Start: 11-25-2020 End: 11-25-2020 Subsequent hospital visit by physician [facility] Laboratory Procedures Date Procedure Procedure Detail Performing Clinician Start: 11-25-2020 Antibody rubella Omkar Gardner MD Work Phone: Plan of Treatment Date Care Activity Detail Author Start: 03-08-2021 Influenza vaccination Flu vacc ine (Season Ended) [employer] Phone: Start: 2005 COVID-19 Vaccine (1) COVID-19 Vaccin e (1) [employer] Phone: End: 11-25-2020 Mumps Antibody, IgG Mumps Antibody, IgG Lab Routine Once for 1 Occurrences starting 11/25/2020 until 11/25/2020 [employer] Phone: Comment on above: Once for 1 Occurrenc es starting 11/25/2020 until 11/25/2020 Mumps Antibody, IgG Mumps Antibo dy, IgG Lab Routine 11/25/2020 3:18 PM EDT [facility] Phone: End: 11-25-2020 Rubeola Antibody, IgG Rubeola Antibody, IgG Lab Routine Once for 1 Occurrences starting 11/25/2020 until 11/25/2020 [employer] [facility] Phone: Comment on above: Once for 1 Occurrenc es starting 11/25/2020 until 11/25/2020 Rubeola Antibody, IgG Rubeola An tibody, IgG Lab Routine 11/25/2020 3:18 PM EDT [employer] Phone: End: 11-25-2020 Tb antigen response gamma interferon t-cell susp T-Spot TB Test Lab Routine Once for 1 Occurrences starting 11/25/2020 until 11/25/2020 [employer] Phone: Comment on above: Once for 1 Occurrenc es starting 11/25/2020 until 11/25/2020 Tb antigen response gamma interferon t-cell susp T-Spot TB Test Lab Routine 11/25/2020 3:18 PM EDT [employer] Phone: End: 11-25-2020 Varicella Zoster Antibody, IgG Varicella Zoster Antibody, IgG Lab Routine Once for 1 Occurrences starting 11/25/2020 until 11/25/2020 [employer] Phone: Comment on above: Once for 1 Occurrenc es starting 11/25/2020 until 11/25/2020 Varicella Zoster Antibody, IgG Varicella Zoster Antibody, IgG Lab Routine 11/25/2020 3:18 PM EDT [employer] Phone: Payers Date Payer Category Payer Unknown [id number] 2020 Unknown [id number] 1995 Unknown [id number] 2.16.84 0.1.640188.3.579.2.718 1993 Unknown [id number] 2.16.84 0.1.118119.3.579.2.593 1993 Unknown [id number] 2.16.84 0.1.883177.3.579.2.593 1993 Unknown [id number] 2.16.84 0.1.205126.3.579.2.593 1993 Unknown [id number] 2.16.84 0.1.320317.3.579.2.9 1993 Unknown [id number] 2.16.84 0.1.835444.3.579.2.1258 1993 Unknown [id number] 2.16.84 0.1.895847.3.579.2.1258 1993 Unknown [id number] 2.16.84 0.1.148984.3.579.2.1258 1993 Unknown [id number] 2.16.84 0.1.679397.3.579.2.1258 1993 Unknown [id number] 2.16.84 0.1.556729.3.579.2.1258 1993 Unknown [id number] 2.16.84 0.1.035336.3.579.2.9 1993 Unknown [id number] 2.16.84 0.1.374725.3.579.2.1258 1993 Unknown [id number] 2.16.84 0.1.484619.3.579.2.9 1993 Unknown [id number] 2.16.840. 1.530182.3.579.2.9 1959 Unknown [id number] Self-pay Self Pay [id number] Social History Date Type Detail Facility Tobacco smoking stat [facility] Unknown if ever smoked [employer] Phone: Start: 1995 Sex Assigned At Not on file [employer] Phone: Start: 1995 Sex Assigned At Female F [facility] Clinical Note 08-23-2022 Note Date & Type Note Facility 08-23-2022 Note OPERATIVE NOTE OPERATION DATE: 08/23/2022 PROCEDURE: LEEP Procedure. PREOPERATIVE DIAGNOSIS: Cervical dysplasia. POSTOPERATIVE DIAGNOSIS: Cervical dysplasia. ANESTHESIA: General. SURGEON: Angie Vivar D.O. BRACE MAKER: None. BLOOD LOSS: 5 mL. SPECIMEN: Ectocervical [...] to Recovery Room in stable condition. [facility] Medication management note 06-11-2022 Note Date & Type Note Facility 06-11-2022 Note Entered by Diane Wadsworth on June 11, 2022 09:44:53 EST From: Diane Wadsworth To: [facility] #[id number] Sent: 06/11/2022 09:44:53 EST Subject: Medication Management Submitted: Complete:desogestrel-ethinyl estradiol (Velivet oral tablet) Signed by Diane Wadsworth 06/11/2022 09:44:00 EST Approved desogestrel-ethinyl estradiol (VELIVET 28 DAY TABLET) take 1 tablet by mouth once daily Qty: 84 tab(s) Days Supply: 84 Refills: 0 Substitutions Allowed Route To Pharmacy - [facility] #[id number] Signed by Diane Wadsworth Patient matched by Diane Wadsworth on 06/11/2022 09:41:06 EST From: [facility] #[id number] To: Bhavya Estrada MD Sent: June 11, 2022 8:39:02 AM BOILING TUB OPERATOR Subject: Medication Management Due: June 12, 2022 12:05:33 AM BOILING TUB 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 Signature Drug: desogestrel-ethinyl estradiol (Velivet oral tablet), take 1 tablet by mouth once daily Quantity: 84 tab(s) Days Supply: 84 Refills: 1 Substitutions Allowed Notes from Pharmacy: Dispensed Drug: desogestrel-ethinyl estradiol (Velivet oral tablet), take 1 tablet by mouth once daily Quantity: 84 tab(s) Days Supply: 84 Refills: 0 Substitutions Allowed Notes from Pharmacy: [facility] Evaluation note Note Date & Type Note Facility Evaluation note No assessment information availa [facility] Work Phone: Summary Purpose Family [...] section and content) DATE CREATED AUTHOR 12/02/2020 [facility] DATE CREATED AUTHOR AUTHOR'S ORGANIZ ATION 12/23/2021 [facility] DATE CREATED AUTHOR AUTHOR'S ORGANIZ ATION 06/11/2022 [facility] DATE CREATED AUTHOR AUTHOR'S ORGANIZ ATION 09/05/[address] [facility] DATE CREATED AUTHOR AUTHOR'S ORGANIZ ATION 03/05/2024 [facility] EP[employer] Care Teams (unrecognized sec tion [...] BE BASED ON THE PRIMARY CLINICAL RECORDS. [employer] provides no warranty or guarantee of the accuracy or completeness of information in this document.
--- NOTE | 2024-03-17 11:03 | US_ITS ---
[address] [address] Patient Name: MARISA ADAN MRN: [id number] date: 1995 Sex: F Assigned Patient Location: [facility] Current Patient Location: [facility] Accession/Order Number: [id number] Exam Date: 03/17/2024 11:03 Report Date: 03/17/2024 11:52 At the request of: VANESA ROSAS Procedure: US OB growth EXAMINATION: US OB growth HISTORY: SIZE INCONSISTENT WITH DATES COMPARISON: Ultrasound OB growth 02/18/2024 FINDINGS: Heart Rate: 152 bpm Amniotic Fluid Volume: 10.5 cm, within normal range. Number: 1 Position: CEPHALIC BIOMETRY: BPD: 8.72 cm; 35 weeks 1 day 26.70 % HC: 31.44 cm; 35 weeks 2 days; 5.60 % AC: 32.29 cm; 36 weeks 1 day; 55.40 % FL: 7.03 cm; 36 weeks 0 days; 36.50 % EFW: 2745.55 g; 39.70 % FL/AC: 21.77 FL/BPD: 80.62 HC/AC: 0.97 GESTATIONAL AGE: Age by EDC: 36 weeks 3 days RUKHSANA by EDC: 2024-04-11 Age by US: 35 weeks 5 days RUKHSANA by US: 2024-04-16 US/US OB growth IMPRESSION: 1. Single live intrauterine with growth detailed above. Electronically authenticated by: JOSÉ MIGUEL LIMON Date: 03/17/2024 11:52
== END 2024-03-15 11:45 | disposition home or self-care (01) ==
LOC: FBCO 11:09 → FBC 11:10
PROVIDERS: Visit Provider Obstetrics & Gynecology
DX: O26.843 Uterine size-date discrepancy, third trimester (principal); Z3A.35 35 weeks gestation of pregnancy
CPT/HCPCS: 59025; 76816

== ENCOUNTER 2024-03-17 09:00 | Outpatient (OUT) | payer BC, SELFPAY ==
--- OUTSIDE RECORDS SUMMARY | 2024-03-18 14:51 | XMS_ITS | CCD ---
Author Organization [facility] Care Team Providers Care Taker Away Name Role Phone Unavailable Primary Care Provider [...] (2 sources) Amoxicillin; Translations: [amoxicillin] Drug Allergy [facility] Repository (1 source) tiZANidine; Translations: [tiZANidine] Drug Allergy [facility] Repository Problems Problem Classification Problem Date [...] 08-23-2022 BASO # 0.1 103/ul Normal 0.0-0.1 [facility] Comment on above: Performed By: #### C BC #### [facility] Laboratory [address] [place] [address] Dr. Car Lozada Basophils/100 WBC (Bld) 0.5 % Normal 0.2-2.0 [facility] Comment on above: Performed By: #### C BC #### [facility] [address] [place] [address] Dr. Car Lozada EO # 0.6 103/ul Normal 0.0-0.7 [facility] Comment on above: Performed By: #### C BC #### [facility] [address] [place] [address] Dr. Car Lozada Eosinophils/100 WBC (Bld) 5.9 % Normal 0.9-7.0 [facility] Comment on above: Performed By: #### C BC #### [facility] [address] [place] [address] Dr. Car Lozada Erythrocyte distribution width (RBC) [Ratio] 12.6 % Normal 11.0-15.0 [facility] Comment on above: Performed By: #### C BC #### [facility] [address] [place] [address] Dr. Car Lozada Hematocrit (Bld) [Volume fraction] 42.0 % Normal 36.0-48.0 [facility] Comment on above: Performed By: #### C BC #### [facility] [address] [address] [address] Car Lozada Hemoglobin (Bld) [Mass/Vol] 14.1 g/dL Normal 12.0-16.0 [facility] Comment on above: Performed By: #### C BC #### [facility] [address] [address] [address] Car Lozada IG # 0.04 10e3/ul Critically high 0.00-0.03 [facility] Comment on above: Performed By: #### C BC #### [facility] [address] [place] [address] Dr. Car Lozada IG % 0.4 % Normal 0.0-0.5 [facility] Comment on above: Performed By: #### C BC #### [facility] [address] [place] [address] Dr. Car Lozada LYMPH # 3.6 103/ul Normal 1.2-3.8 [facility] Comment on above: Performed By: #### C BC #### [facility] [address] [place] [address] Dr. Car Lozada Lymphocytes/100 WBC (Bld) 34.7 % Normal 20.5-60.0 [facility] Comment on above: Performed By: #### C BC #### [facility] [address] [place] [address] Dr. Car Lozada MANUAL DIFF REQ NO Normal [facility] Comment on above: Performed By: #### C BC #### [facility] [address] [place] [address] Dr. Car Lozada MCH (RBC) [Entitic mass] 31.2 pg Normal 26.7-34.0 [facility] Comment on above: Performed By: #### C BC #### [facility] [address] [place] [address] Dr. Car Lozada MCHC (RBC) [Mass/Vol] 33.6 g/dL Normal 29.9-35.2 [facility] Comment on above: Performed By: #### C BC #### [facility] [address] [place] [address] Dr. Car Lozada MCV (RBC) [Entitic vol] 92.9 fL Normal 81.0-99.0 [facility] Comment on above: Performed By: #### C BC #### [facility] [address] [place] [address] Dr. Car Lozada MONO # 0.9 103/ul Critically high 0.3-0.8 [facility] Comment on above: Performed By: #### C BC #### [facility] [address] [place] [address] Dr. Car Lozada Monocytes/100 WBC (Bld) 8.3 % Normal 1.7-12.0 [facility] Comment on above: Performed By: #### C BC #### [facility] [address] [place] [address] Dr. Car Lozada NEUT # 5.2 103/ul Normal 1.4-6.5 [facility] Comment on above: Performed By: #### C BC #### [facility] [address] [place] [address] Dr. Car Lozada Neutrophils/100 WBC (Bld) 50.2 % Normal 43.0-75.0 [facility] Comment on above: Performed By: #### C BC #### [facility] [address] [place] [address] Dr. Car Lozada Platelet mean volume (Bld) [Entitic vol] 10.0 fL Normal 9.5-13.5 [facility] Comment on above: Performed By: #### C BC #### [facility] [address] [place] [address] Dr. Car Lozada PLT 251 103/ul Normal 150-450 [facility] Comment on above: Performed By: #### C BC #### [facility] [address] [place] [address] Dr. Car Lozada RBC 4.52 106/ul Normal 4.20-5.40 [facility] Comment on above: Performed By: #### C BC #### [facility] [address] [place] [address] Dr. Cra Lozada WBC 10.3 103/ul Normal 4.0-11.0 [facility] Comment on above: Performed By: #### C BC #### [facility] [address] [place] [address] Dr. Car Lozada PREG QUANT HCGon 08-23-2022 HCG QUANT <1 Normal [facility] Comment on above: Performed By: #### P REGQNT #### [facility] [address] [place] [address] Dr. Car Lozada HCG RANGE SEE BELOW Normal [facility] Comment on above: Result Comment: 5-50 0.2-1 WEEK 50-500 1-2 WEEKS 100-5,000 2-3 WEEKS 500-10,000 3-4 WEEKS 1,000-50,000 4-5 WEEKS 10,000-100,000 5-6 WEEKS 15,000-200,000 6-8 WEEKS 10,000-100,000 2-3 MONTHS Performed By: #### P REGQNT #### [facility] [address] [place] [address] Dr. Car Lozada XR CHEST 2 Von [...] JOSÉ MIGUEL LIMON Date: 2022-08-16 10:17 Normal [facility] PAP ACOG PANEL 2: 21 to 29on 06-25-2022 . . Normal [facility] Comment on above: Performed By: #### [id number] #### [facility] [address] [place] [address] Dr. Car Lozada Age Gdln ACOG Testing 21-29 Normal [facility] Comment on above: Performed By: #### 4 [id number] #### [facility] [address] [place] [address] Dr. Car Lozada DIAGNOSIS: Comment Abnormal [facility] Comment on above: Result Comment: EPIT HELIAL CELL ABNORMALITY. LOW GRADE SQUAMOUS INTRAEPITHELIAL LESION (LSIL). Performed By: #### 4 [id number] #### [facility] [address] [place] [address] Dr. Car Lozada Electronically signed by: Comment Normal [facility] Comment on above: Result Comment: Phyllis Vital MD, Pathologist Performed By: #### [id number] #### [facility] [address] [address] [address] Car Lozada Methodology: Comment Normal [facility] Comment on above: Result Comment: This liquid based ThinPrep(R) pap test was screened with the use of an image guided system. Performed By: #### 4 [id number] #### [facility] [address] [place] [address] Dr. Car Lozada Note: Comment Normal [facility] Comment on above: Result Comment: The Pap smear is a screening test designed to aid in the detection of premalignant and malignant conditions of the uterine cervix. It is not a diagnostic procedure and should not be used as the sole means of detecting cervical cancer. Both false-positive and false-negative reports do occur. . Performed By: #### 4 [id number] #### [facility] [address] [place] [address] Dr. Car Lozada Pathologist Provided ICD10 Comment Normal [facility] Comment on above: Result Comment: [id number]. [id number] Performed By: #### 4 [id number] #### [facility] [address] [place] [address] Dr. Car Lozada Performed by: Comment Normal [facility] Comment on above: Result Comment: Sidney Masters, Trade Marker (ASCP) Performed By: #### 4 [id number] #### [facility] [address] [place] [address] Dr. Car Lozada Recommendation: Comment Abnormal [facility] Comment on above: Result Comment: Sugg est follow up as clinically appropriate. Performed By: #### 4 [id number] #### [facility] [address] [address] [address] Car Lozada Reflex Criteria: Comment Normal [facility] Comment on above: Result Comment: The HPV DNA reflex criteria were not met with this specimen result therefore, no HPV testing was performed. . Performed By: #### 4 [id number] #### [facility] [address] [address] [address] Car Lozada Specimen adequacy: Comment Normal [facility] Comment on above: Result Comment: Sati sfactory for evaluation. Endocervical and/or squamous metaplastic cells (endocervical component) are present. Performed By: #### 4 [id number] #### [facility] [address] [address] [address] Car Lozada Body fluid albumin measureme nt (mass/volume)Ordered By: Dom Paulino on 12-22-2021 Albumin (Body fld) [Mass/Vol] 3.4 g/dL 3.2-5.5 [facility] Cholesterol [Mass/volume] in Serum or PlasmaOrdered By: Dom Paulino on 12-22-2021 Cholesterol [Mass/Vol] 228 mg/dL 140-200 [facility] Comment on above: Chol less than 200 m g/dl low risk Chol 201-239 mg/dl borderline risk Chol 240 mg/dl and greater high risk Cholesterol in LDL Calc [Mas s/Vol]Ordered By: Dom Paulino on 12-22-2021 Cholesterol in LDL [Mass/Vol] 136 mg/dL 0-100 [facility] Comment on above: LDL ATP III CLASSIFI CATION LDL less than 100 mg/dL Optimal LDL 100-129 mg/dL Near or above optimal LDL 130-159 mg/dL Borderline high LDL 160-189 mg/dL High LDL greater than 189 mg/dL Very high Cholesterol in VLDL Calc [Ma ss/Vol]Ordered By: Dom Paulino on 12-22-2021 Cholesterol in VLDL [Mass/Vol] 19 mg/dL [facility] Comprehensive Metabolic Empo n 12-22-2021 Albumin [Mass/Vol] 3.4 g/dL Normal 3.2-5.5 [facility] Comment on above: Performed By: #### E BS CMP, EBS LIPID #### [facility] [address] Albumin/Globulin [Mass ratio] 1.2 {ratio} Normal [facility] Comment on above: Performed By: #### E BS CMP, EBS LIPID #### [facility] [address] ALP [Catalytic activity/Vol] 48 U/L Normal 32-92 [facility] Comment on above: Performed By: #### E BS CMP, EBS LIPID #### [facility] [address] ALT [Catalytic activity/Vol] 14 U/L Normal 10-60 [facility] Comment on above: Performed By: #### E BS CMP, EBS LIPID #### [address] AST [Catalytic activity/Vol] 15 U/L Normal 10-42 [facility] Comment on above: Performed By: #### E BS CMP, EBS LIPID #### [address] Bilirubin [Mass/Vol] 0.3 mg/dL Normal 0.3-1.2 [facility] Comment on above: Performed By: #### E BS CMP, EBS LIPID #### [address] Calcium [Mass/Vol] 9.3 mg/dL Normal 8.2-10.2 [facility] Comment on above: Performed By: #### E BS CMP, EBS LIPID #### [facility] [address] [place] [address] [place] Chloride [Moles/Vol] 101 mmol/L Normal 95-114 [facility] Comment on above: Performed By: #### E BS CMP, EBS LIPID #### [facility] [address] [place] [address] [place] CO2 [Moles/Vol] 23.8 mmol/L Normal 22.0-30.0 [facility] Comment on above: Performed By: #### E BS CMP, EBS LIPID #### [facility] [address] [place] [address] [place] Creatinine [Mass/Vol] 0.79 mg/dL Normal 0.44-1.[address] [facility] Comment on above: Performed By: #### E BS CMP, EBS LIPID #### [facility] [address] Estimated GFR ( Aleena > 60 Normal [facility] Comment on above: Result Comment: GFR estimated reference range: According to KDOQI guidelines, <60 ml/min/1.73m2 is sufficient to diagnose a patient with chronic kidney disease. Performed By: #### E BS CMP, EBS LIPID #### [facility] [address] Estimated GFR (Non- Am > 60 [facility] Comment on above: Performed By: #### E BS CMP, EBS LIPID #### [facility] [address] [place] [address] Globulin (S) [Mass/Vol] 2.8 g/dL Normal [facility] Comment on above: Performed By: #### E BS CMP, EBS LIPID #### [facility] [address] [place] [address] Glucose [Mass/Vol] 76 mg/dL Normal 70-100 [facility] Comment on above: Performed By: #### E BS CMP, EBS LIPID #### [facility] [address] [place] [address] Potassium [Moles/Vol] 3.8 mmol/L Normal 3.5-5.[address] [facility] Comment on above: Performed By: #### E BS CMP, EBS LIPID #### [facility] [address] [place] [address] Protein [Mass/Vol] 6.2 g/dL Normal 6.1-7.9 [facility] Comment on above: Performed By: #### E BS CMP, EBS LIPID #### [facility] [address] [place] [address] Sodium [Moles/Vol] 136 mmol/L Normal 136-146 [facility] Comment on above: Performed By: #### E BS CMP, EBS LIPID #### [facility] [address] [place] [address] [place] Urea nitrogen [Mass/Vol] 10 mg/dL Normal 9-23 [facility] Comment on above: Performed By: #### E SUSHIL ROA, EBS LIPID #### [facility] [address] [place] [address] [place] Creatinine and Glomerular fi ltration rate.predicted panel (S/P/Bld)Ordered By: Dom Paulino on 12-22-2021 Creatinine [Mass/Vol] 0.79 mg/dL 0.44-1.[address] [facility] Estimated glomerular filtrat ion rate (GFR) non- AmericanOrdered By: Dom Paulino on 12-22-2021 GFR/1.73 sq M.predicted among non-blacks MDRD (S/P/Bld) [Vol rate/Area] > 60 mL/Min [facility] Globulin Calc (S) [Mass/Vol] Ordered By: Dom Paulino on 12-22-2021 Globulin (S) [Mass/Vol] 2.8 g/dL [facility] - Chemistry and C hemistry - challengeOrdered By: Dom Paulino on 12-22-2021 Glucose [Mass/Vol] 76 mg/dL 70-100 [facility] Lipid Profileon 12-22-2021 Cholesterol [Mass/Vol] 228 mg/dL High 140-200 [facility] Comment on above: Result Comment: Chol less than 200 mg/dl low risk Chol 201-239 mg/dl borderline risk Chol 240 mg/dl and greater high risk Performed By: #### E SUSHIL ROA, EBS LIPID #### [facility] [address] [place] [address] [place] Cholesterol in HDL [Mass/Vol] 73 mg/dL Normal 35-85 [facility] Comment on above: Result Comment: HDL CHOL ATP-III CLASSIFICATION Cardiovascular Risk HDL > or equal to 60 mg/dL LOW HDL < 40 mg/dL HIGH Performed By: #### E BS CMP, EBS LIPID #### [facility] [address] [place] [address] [place] Cholesterol.total/Janey sterol in HDL [Mass ratio] 3.1 {ratio} Normal <5.0 [facility] Comment on above: Result Comment: PERF ORMED BY: [place] [address] PATHOLOGIST OUTFITTER CABIN DENYS OWO M.D. Performed By: #### E BS CMP, EBS LIPID #### [facility] [address] LDL Cholesterol,Calculated 136 mg/dL High 0-100 [facility] Comment on above: Result Comment: LDL ATP III CLASSIFICATION LDL less than 100 mg/dL Optimal LDL 100-129 mg/dL Near or above optimal LDL 130-159 mg/dL Borderline high LDL 160-189 mg/dL High LDL greater than 189 mg/dL Very high Performed By: #### E BS CMP, EBS LIPID #### [address] Triglyceride w/Reflex 95 mg/dL Normal 35-[address] [facility] Comment on above: Result Comment: TRIG ATP III CLASSIFICATION TRIG less than 150 mg/dL Normal TRIG 150-199 mg/dL Borderline high TRIG 200-500 mg/dL High TRIG greater than 500 mg/dL Very high Standard traceable to the Center for Disease Conrtrol and Prevention (CDC) test method. Performed By: #### E BS CMP, EBS LIPID #### [facility] [address] [place] [address] VLDL CHOLESTEROL 19 mg/dL Normal [facility] Comment on above: Performed By: #### E BS CMP, EBS LIPID #### [facility] [address] [place] [address] No Panel InformationOrdered By: Dom Paulino on 12-22-2021 Estimated GFR () > 60 mL/Min [facility] Comment on above: GFR estimated refere nce range: According to KDOQI guidelines, <60 ml/min/1.73m2 is sufficient to diagnose a patient with chronic kidney disease. Pharmacy Creatinine Clearance (Chem N/A [facility] Triglycerides Reflex 95 mg/dL 35-149 [facility] Comment on above: TRIG ATP III CLASSIF ICATION TRIG less than 150 mg/dL Normal TRIG 150-199 mg/dL Borderline high TRIG 200-500 mg/dL High TRIG greater than 500 mg/dL Very high Standard traceable to the Center for Disease Conrtrol and Prevention (CDC) test method. Protein [Mass/volume] in Ser um or PlasmaOrdered By: Dom Paulino on 12-22-2021 Protein [Mass/Vol] 6.2 g/dL 6.1-7.9 [facility] Serum or plasma alanine pan otransferase measurement without P-5'-P (enzymatic activiOrdered By: Dom Paulino on 12-22-2021 ALT No additional P-5'-P [Catalytic activity/Vol] 14 U/L 10-60 [facility] Serum or plasma albumin/glob ulin mass ratioOrdered By: Dom Paulino on 12-22-2021 Albumin/Globulin [Mass ratio] 1.2 {ratio} [facility] Serum or plasma alkaline nina sphatase measurement (enzymatic activity/volume)Ordered By: Dom Paulino on 12-22-2021 ALP [Catalytic activity/Vol] 48 U/L 32-92 [facility] Serum or plasma aspartate am inotransferase measurement (enzymatic activity/volume)Ordered By: Dom Paulino on 12-22-2021 AST [Catalytic activity/Vol] 15 U/L 10-42 [facility] Serum or plasma calcium dexter urement (mass/volume)Ordered By: Dom Paulino on 12-22-2021 Calcium [Mass/Vol] 9.3 mg/dL 8.2-10.2 [facility] Serum or plasma chloride glenis surement (moles/volume)Ordered By: Dom Paulino on 12-22-2021 Chloride [Moles/Vol] 101 mmol/L 95-114 [facility] Serum or plasma high density lipoprotein (HDL) cholesterol measurementOrdered By: Dom Paulino on 12-22-2021 Cholesterol in HDL [Mass/Vol] 73 mg/dL 35-85 [facility] Comment on above: HDL CHOL ATP-III CLA SSIFICATION Cardiovascular Risk HDL > or equal to 60 mg/dL LOW HDL < 40 mg/dL HIGH Serum or plasma potassium me asurement (moles/volume)Ordered By: Dom Paulino on 12-22-2021 Potassium [Moles/Vol] 3.8 mmol/L 3.5-5.[address] [facility] Serum or plasma sodium measu rement (moles/volume)Ordered By: Dom Paulino on 12-22-2021 Sodium [Moles/Vol] 136 mmol/L 136-146 [facility] Serum or plasma total biliru bin measurement (mass/volume)Ordered By: Dom Paulino on 12-22-2021 Bilirubin [Mass/Vol] 0.3 mg/dL 0.3-1.2 [facility] Serum or plasma total carbon dioxide measurement (moles/volume)Ordered By: Dom Paulino on 12-22-2021 CO2 [Moles/Vol] 23.8 mmol/L 22.0-30.0 [facility] Serum or plasma total choles terol/high density lipoprotein (HDL) cholesterol mass ratOrdered By: Dom Paulino on 12-22-2021 Cholesterol.total/Janey sterol in HDL [Mass ratio] 3.1 {ratio} [facility] Serum or plasma urea nitroge n measurement (mass/volume)Ordered By: Dom Paulino on 12-22-2021 Urea nitrogen [Mass/Vol] 10 mg/dL 9-23 [facility] Outside Recordson 09-13-2021 Outside Records [id number]# 1.00[facility] Outside Record[facility] 08-28-2021 Outside Records [id number] #1.00[facility] Outside Records [id number] #1.00[facility] Consent Formson 07-14-2021 Consent Forms [id number] [address] [place] [address] Progress Note - Nurseon Progress Note - Nurse Antigen test ordered, test resulted positive, patient informed of positive result. In house test ordered, patient informed and swabbed, specimen sent to lab. [Electronically Signed on: 07/11/2021 16:04 EST] Kamini Tovar RN [Verified on: 07/11/2021 16:04 EST] Kamini Tovar RN [facility] Progress Note - Nurse Antigen test ordered, test resulted negative, patient informed of negative result. [Electronically Signed on: 07/11/2021 11:45 EST] Kamini Tovar RN [Verified on: 07/11/2021 11:45 EST] Kamini Tovar RN [facility] Measles (Rubeola) Imon 11-28 Measles (Rubeola) Im 3.49 Normal >1.09 [facility] Comment on above: Result Comment: Interpretation: IMMUNE Reference Range: <0.91 Not Immune 0.91-1.09 Equivocal >1.09 Immune Performed By: #### M EI, JUDY, VZI, TSPOT, MEÑO #### [address] [address] [employer]: Maury Watts MD Mumps,Immun,Abon 11-28-2020 Mumps,Immun,Ab 1.48 Normal >1.09 [facility] Comment on above: Result Comment: Interpretation: IMMUNE Reference Range: <0.91 Not Immune 0.91-1.09 Equivocal >1.09 Immune Performed By: #### M EI, JUDY, VZI, TSPOT, MEÑO #### [facility] [employer] [address] [place] [id number] Citrus Picker: Maury Watts MD T-Spoton 11-28-2020 T-Spot. TB Test Normal [facility] Comment on above: Result Comment: [facility] [employer] [address] [place] [id number] (NOTE) T-SPOT.TB Test Results --------- T-SPOT TB [...] M EI, JUDY, VZI, TSPOT, MEÑO #### [employer] [address] [place] [id number] Citrus Picker: Maury Watts MD VZ Immunityon 11-28-2020 VZ Immunity 2.04 Normal >1.09 [facility] Comment on above: Result Comment: Interpretation: IMMUNE Reference Range: <0.91 Not Immune 0.91-1.09 Equivocal >1.09 Immune Performed By: #### M EI, JUDY, VZI, TSPOT, MEÑO #### [employer] [address] [place], [place] [id number] Citrus Picker: Maury Watts MD Rubella Ab, IgGon 11-25-2020 Rubella Ab, IgG 150.4 IU/mL Normal [facility] Comment on above: Result Comment: REFERENCE RANGE: <5.0 NON-REACTIVE (non-immune) 5.0 TO 9.9 EQUIVOCAL >=10.0 REACTIVE (immune) Performed By: #### M EI, JUDY, VZI, TSPOT, MEÑO #### [employer] [address] [id number] Cit[employer] Picker: Maury Watts MD Rubella antibody, IgGOrdered By: Morales Gardner on 11-25-2020 Rubella virus IgG Ql (S) 150.4 IU/mL [employer]: Comment on above: REFERENCE RANGE: <5.0 NON-REACTIVE (non-immune) 5.0 TO 9.9 EQUIVOCAL >=10.0 REACTIVE (immune) [employer] Phone: Encounters Encounter Date Encounter Type Care [...] Encounter for preprocedural respiratory examination DR ANGIE VIVRA . [facility] Start: 08-16-2022 End: 08-17-[address] ANGIE VIVAR . Facility:[facility] Start: 08-16-2022 End: 08-17-2022 Encounter for preprocedural respiratory examination DR ANGIE VIVAR . Facility:[facility] Start: 06-13-2022 End: 06-13-[address] ANGIE VIVAR . Facility:[facility] Start: 04-26-2022 End: 04-27-2022 ambulatory [facility] Facility:[facility] Start: 12-22-2021 End: 12-22-2021 Departed [facility] [address] Start: 07-13-2021 End: 07-13-2021 ambulatory [facility] Facility:[facility] Start: 07-12-2021 End: 07-12-2021 ambulatory [facility] Facility:[facility] Start: 11-25-2020 End: 11-26-2020 ambulatory MORALES GARDNER [facility] Start: 11-25-2020 End: 11-25-2020 Subsequent hospital visit by physician [facility] Laboratory Procedures Date Procedure Procedure Detail Performing Clinician Start: 11-25-2020 Antibody rubella Omkar Gardner MD Work Phone: Plan of Treatment Date Care Activity Detail Author Start: 03-08-2021 Influenza vaccination Flu vacc ine (Season Ended) [facility] Phone: Start: 2005 COVID-19 Vaccine (1) COVID-19 Vaccin e (1) [facility] Phone: End: 11-25-2020 Mumps Antibody, IgG Mumps Antibody, IgG Lab Routine Once for 1 Occurrences starting 11/25/2020 until 11/25/2020 [facility] Phone: Comment on above: Once for 1 Occurrenc es starting 11/25/2020 until 11/25/2020 Mumps Antibody, IgG Mumps Antibo dy, IgG Lab Routine 11/25/2020 3:18 PM EDT [facility] Phone: End: 11-25-2020 Rubeola Antibody, IgG Rubeola Antibody, IgG Lab Routine Once for 1 Occurrences starting 11/25/2020 until 11/25/2020 [facility] Phone: Comment on above: Once for 1 Occurrenc es starting 11/25/2020 until 11/25/2020 Rubeola Antibody, IgG Rubeola An tibody, IgG Lab Routine 11/25/2020 3:18 PM EDT [facility] Phone: End: 11-25-2020 Tb antigen response gamma interferon t-cell susp T-Spot TB Test Lab Routine Once for 1 Occurrences starting 11/25/2020 until 11/25/2020 [facility] Phone: Comment on above: Once for 1 Occurrenc es starting 11/25/2020 until 11/25/2020 Tb antigen response gamma interferon t-cell susp T-Spot TB Test Lab Routine 11/25/2020 3:18 PM EDT [facility] Phone: End: 11-25-2020 Varicella Zoster Antibody, IgG Varicella Zoster Antibody, IgG Lab Routine Once for 1 Occurrences starting 11/25/2020 until 11/25/2020 [facility] Phone: Comment on above: Once for 1 Occurrenc es starting 11/25/2020 until 11/25/2020 Varicella Zoster Antibody, IgG Varicella Zoster Antibody, IgG Lab Routine 11/25/2020 3:18 PM EDT [facility] Phone: Payers Date Payer Category Payer Unknown [id number] 2020 Unknown [id number] 1993 Unknown [id number] 2.16.84 [id number] 1993 Unknown [id number] 2.16.84 0.1.242619.3.579.2.593 1993 Unknown [id number] 2.16.84 0.1.953898.3.579.2.593 1993 Unknown [id number] 2.16.84 0.1.910986.3.579.2.593 1993 Unknown [id number] 2.16.84 0.1.295718.3.579.2.9 1993 Unknown [id number] 2.16.84 0.1.505905.3.579.2.1258 1993 Unknown [id number] 2.16.84 0.1.269492.3.579.2.1258 1993 Unknown [id number] 2.16.84 0.1.053952.3.579.2.1258 1993 Unknown [id number] 2.16.84 0.1.796187.3.579.2.1258 1993 Unknown [id number] 2.16.84 0.1.061221.3.579.2.1258 1993 Unknown [id number] 2.16.84 0.1.084307.3.579.2.9 1993 Unknown [id number] 2.16.84 0.1.299660.3.579.2.1258 1993 Unknown [id number] 2.16.84 0.1.894185.3.579.2.9 1993 Unknown [id number] 2.16.840. 1.656613.3.579.2.9 1959 Unknown [id number] Self-pay Self Pay [id number] Social History Date Type Detail Facility Tobacco smoking stat [facility] Unknown if ever smoked [facility] Phone: Start: 1995 Sex Assigned At Not on file [facility] Phone: Start: 1995 Sex Assigned At Female F [facility] Clinical Note 08-23-2022 Note Date & Type Note Facility 08-23-2022 Note OPERATIVE NOTE OPERATION DATE: 08/23/2022 PROCEDURE: LEEP Procedure. PREOPERATIVE DIAGNOSIS: Cervical dysplasia. POSTOPERATIVE DIAGNOSIS: Cervical dysplasia. ANESTHESIA: General. SURGEON: Angie Vivar D.O. PRODUCTION OPERATOR: None. BLOOD LOSS: 5 mL. SPECIMEN: [...] to Recovery Room in stable condition. [facility] Medication management note 06-11-2022 Note Date & Type Note Facility 06-11-2022 Note Entered by Diane Wadsworth on June 11, 2022 09:44:53 EST From: Diane Wadsworth To: [facility] #[id number] Sent: 06/11/2022 09:44:53 EST Subject: Medication Management Submitted: Complete:desogestrel-ethinyl estradiol (Velivet oral tablet) Signed by Diane Wadsworth 06/11/2022 09:44:00 EST Approved desogestrel-ethinyl estradiol (VELIVET 28 DAY TABLET) take 1 tablet by mouth once daily Qty: 84 tab(s) Days Supply: 84 Refills: 0 Substitutions Allowed Route To Pharmacy - [facility] #[id number] Signed by Diane Wadsworth Patient matched by Diane Wadsworth on 06/11/2022 09:41:06 EST From: [facility][id number] To: Bhavya Estrada MD Sent: June 11, 2022 8:39:02 AM [facility] Subject: Medication Management Due: June 12, 2022 12:05:33 AM [facility] On Hold Pending Signature Drug: desogestrel-ethinyl estradiol (Velivet oral tablet), take 1 tablet by mouth once daily Quantity: 84 tab(s) Days Supply: 84 Refills: 1 Substitutions Allowed Notes from Pharmacy: Dispensed Drug: desogestrel-ethinyl estradiol (Velivet oral tablet), take 1 tablet by mouth once daily Quantity: 84 tab(s) Days Supply: 84 Refills: 0 Substitutions Allowed Notes from Pharmacy: [facility] Evaluation note Note Date & Type Note Facility Evaluation note No assessment information availa [facility] Work Phone: Summary Purpose Family [...] content) DATE CREATED AUTHOR 12/02/2020 [facility] DATE CREATED AUTHOR AUTHOR'S ORGANIZ ATION 12/23/2021 [facility] DATE CREATED AUTHOR AUTHOR'S ORGANIZ ATION 06/11/2022 [facility] DATE CREATED AUTHOR AUTHOR'S ORGANIZ ATION 09/05/2022 [facility] DATE CREATED AUTHOR AUTHOR'S ORGANIZ ATION 03/05/2024 [facility] EP[employer] Care Teams (unrecognized sec tion [...] BE BASED ON THE PRIMARY CLINICAL RECORDS. [employer] provides no warranty or guarantee of the accuracy or completeness of information in this document.
--- OUTSIDE RECORDS SUMMARY | 2024-03-18 14:54 | XMS_ITS | CCD ---
Author Organization [facility] Care Team Providers Care Respiratory Therapy Director Name Role Phone Unavailable Primary Care Provider UnavailMORALES Renner Referring Unavailable NON STAFF Primary Care Provider UnavailDO Dom Cerda Jr Attending Provider [phone] Bhavya Estrada Primary Care Unavailable Bhavya Estrada [...] (2 sources) Amoxicillin; Translations: [amoxicillin] Drug Allergy [facility] Repository (1 source) tiZANidine; Translations: [tiZANidine] Drug Allergy [facility] Repository Problems Problem Classification Problem Date [...] # 0.1 103/ul Normal 0.0-0.1 [facility] Comment on above: Performed By: #### C BC #### [facility] [address] [place] [address] Dr. Car Lozada Basophils/100 WBC (Bld) 0.5 % Normal 0.2-2.0 [facility] Comment on above: Performed By: #### C BC #### [facility] [address] [place] [address] Dr. Car Lozada EO # 0.6 103/ul Normal 0.0-0.7 [facility] Comment on above: Performed By: #### C BC #### [facility] [address] [place] [address] Dr. Car Lozada Eosinophils/100 WBC (Bld) 5.9 % Normal 0.9-7.0 [facility] Comment on above: Performed By: #### C BC #### [facility] [address] [place] [address] Dr. Car Lozada Erythrocyte distribution width (RBC) [Ratio] 12.6 % Normal 11.0-15.0 [facility] Comment on above: Performed By: #### C BC #### [facility] [address] [place] [address] Dr. Car Lozada Hematocrit (Bld) [Volume fraction] 42.0 % Normal 36.0-48.0 [facility] Comment on above: Performed By: #### C BC #### [facility] [address] [address] [address] Car Lozada Hemoglobin (Bld) [Mass/Vol] 14.1 g/dL Normal 12.0-16.0 [facility] Comment on above: Performed By: #### C BC #### [facility] [address] [address] [address] Car Lozada IG # 0.04 10e3/ul Critically high 0.00-0.03 [facility] Comment on above: Performed By: #### C BC #### [facility] [address] [place] [address] Dr. Car Lozada IG % 0.4 % Normal 0.0-0.5 [facility] Comment on above: Performed By: #### C BC #### [facility] [address] [place] [address] Dr. Car Lozada LYMPH # 3.6 103/ul Normal 1.2-3.8 [facility] Comment on above: Performed By: #### C BC #### [facility] [address] [place] [address] Dr. Car Lozada Lymphocytes/100 WBC (Bld) 34.7 % Normal 20.5-60.0 [facility] Comment on above: Performed By: #### C BC #### [facility] [address] [place] [address] Dr. Car Lozada MANUAL DIFF REQ NO Normal [facility] Comment on above: Performed By: #### C BC #### [facility] [address] [place] [address] Dr. Cra Lozada MCH (RBC) [Entitic mass] 31.2 pg Normal 26.7-34.0 [facility] Comment on above: Performed By: #### C BC #### [facility] [address] [place] [address] Dr. Car Lozada MCHC (RBC) [Mass/Vol] 33.6 g/dL Normal 29.9-35.2 [facility] Comment on above: Performed By: #### C BC #### [facility] [address] [place] [address] Dr. Car Lozada MCV (RBC) [Entitic vol] 92.9 fL Normal 81.0-99.0 [facility] Comment on above: Performed By: #### C BC #### [facility] [address] [place] [address] Dr. Car Lozada MONO # 0.9 103/ul Critically high 0.3-0.8 [facility] Comment on above: Performed By: #### C BC #### [facility] [address] [place] [address] Dr. Car Lozada Monocytes/100 WBC (Bld) 8.3 % Normal 1.7-12.0 [facility] Comment on above: Performed By: #### C BC #### [facility] [address] [place] [address] Dr. Car Lozada NEUT # 5.2 103/ul Normal 1.4-6.5 [facility] Comment on above: Performed By: #### C BC #### [facility] [address] [place] [address] Dr. Car Lozada Neutrophils/100 WBC (Bld) 50.2 % Normal 43.0-75.0 [facility] Comment on above: Performed By: #### C BC #### [facility] [address] [place] [address] Dr. Car Lozada Platelet mean volume (Bld) [Entitic vol] 10.0 fL Normal 9.5-13.5 [facility] Comment on above: Performed By: #### C BC #### [facility] [address] [place] [address] Dr. Car Lozada PLT 251 103/ul Normal 150-450 [facility] Comment on above: Performed By: #### C BC #### [facility] [address] [place] [address] Dr. Car Lozada RBC 4.52 106/ul Normal 4.20-5.40 [facility] Comment on above: Performed By: #### C BC #### [facility] [address] [place] [address] Dr. Car Lozada WBC 10.3 103/ul Normal 4.0-11.0 [facility] Comment on above: Performed By: #### C BC #### [facility] [address] [place] [address] Dr. Car Lozada PREG QUANT HCGon 08-23-2022 HCG QUANT <1 Normal [facility] Comment on above: Performed By: #### P REGQNT #### [facility] [address] [place] [address] Dr. Car Lozada HCG RANGE SEE BELOW Normal [facility] Comment on above: Result Comment: 5-50 0.2-1 WEEK 50-500 1-2 WEEKS 100-5,000 2-3 WEEKS 500-10,000 3-4 WEEKS 1,000-50,000 4-5 WEEKS 10,000-100,000 5-6 WEEKS 15,000-200,000 6-8 WEEKS 10,000-100,000 2-3 MONTHS Performed By: #### P REGQNT #### [facility] [address] [place] [address] Dr. Car Lozada XR CHEST 2 Von [...] LIMON Date: 2022-08-16 10:17 Normal [facility] PAP ACOG PANEL 2: 21 to 29on 06-25-2022 . . Normal [facility] Comment on above: Performed By: #### [id number] #### [facility] [address] [place] [address] Dr. Car Lozada Age Gdln ACOG Testing 21-29 Normal [facility] Comment on above: Performed By: #### 4 [id number] #### [facility] [address] [place] [address] Dr. Car Lozada DIAGNOSIS: Comment Abnormal [facility] Comment on above: Result Comment: EPIT HELIAL CELL ABNORMALITY. LOW GRADE SQUAMOUS INTRAEPITHELIAL LESION (LSIL). Performed By: #### 4 [id number] #### [facility] [address] [place] [address] Dr. Car Lozada Electronically signed by: Comment Normal [facility] Comment on above: Result Comment: Phyllis Vital MD, Pathologist Performed By: #### 4 [id number] #### [facility] [address] [address] [address] Car Lozada Methodology: Comment Normal [facility] Comment on above: Result Comment: This liquid based ThinPrep(R) pap test was screened with the use of an image guided system. Performed By: #### 4 [id number] #### [facility] [address] [place] [address] Dr. Car Lozada Note: Comment Normal [facility] Comment on above: Result Comment: The Pap smear is a screening test designed to aid in the detection of premalignant and malignant conditions of the uterine cervix. It is not a diagnostic procedure and should not be used as the sole means of detecting cervical cancer. Both false-positive and false-negative reports do occur. . Performed By: #### 4 [id number] #### [facility] [address] [place] [address] Dr. Car Lozada Pathologist Provided ICD10 Comment Normal [facility] Comment on above: Result Comment: [id number]. [id number] Performed By: #### 4 [id number] #### [facility] [address] [place] [address] Dr. Car Lozada Performed by: Comment Normal [facility] Comment on above: Result Comment: Sidney Masters, Tie Puller (ASCP) Performed By: #### 4 [id number] #### [facility] [address] [place] [address] Dr. Car Lozada Recommendation: Comment Abnormal [facility] Comment on above: Result Comment: Sugg est follow up as clinically appropriate. Performed By: #### 4 [id number] #### [facility] [address] [address] [address] Car Lozada Reflex Criteria: Comment Normal [facility] Comment on above: Result Comment: The HPV DNA reflex criteria were not met with this specimen result therefore, no HPV testing was performed. . Performed By: #### 4 [id number] #### [facility] [address] [address] [address] Car Lozada Specimen adequacy: Comment Normal [facility] Comment on above: Result Comment: Sati sfactory for evaluation. Endocervical and/or squamous metaplastic cells (endocervical component) are present. Performed By: #### 4 [id number] #### [facility] [address] [address] [address] Car Lozada Body fluid albumin measureme nt (mass/volume)Ordered By: Dom Paulino on 12-22-2021 Albumin (Body fld) [Mass/Vol] 3.4 g/dL 3.2-5.5 [facility] Cholesterol [Mass/volume] in Serum or PlasmaOrdered By: Dom Paulino on 12-22-2021 Cholesterol [Mass/Vol] 228 mg/dL 140-200 [facility] Comment on above: Chol less than 200 m g/dl low risk Chol 201-239 mg/dl borderline risk Chol 240 mg/dl and greater high risk Cholesterol in LDL Calc [Mas s/Vol]Ordered By: Dom Paulino on 12-22-2021 Cholesterol in LDL [Mass/Vol] 136 mg/dL 0-100 [facility] Comment on above: LDL ATP III CLASSIFI CATION LDL less than 100 mg/dL Optimal LDL 100-129 mg/dL Near or above optimal LDL 130-159 mg/dL Borderline high LDL 160-189 mg/dL High LDL greater than 189 mg/dL Very high Cholesterol in VLDL Calc [Ma ss/Vol]Ordered By: Dom Paulino on 12-22-2021 Cholesterol in VLDL [Mass/Vol] 19 mg/dL [facility] Comprehensive Metabolic Empo n 12-22-2021 Albumin [Mass/Vol] 3.4 g/dL Normal 3.2-5.5 [facility] Comment on above: Performed By: #### E BS CMP, EBS LIPID #### [facility] [address] Albumin/Globulin [Mass ratio] 1.2 {ratio} Normal [facility] Comment on above: Performed By: #### E BS CMP, EBS LIPID #### [facility] [address] ALP [Catalytic activity/Vol] 48 U/L Normal 32-92 [facility] Comment on above: Performed By: #### E BS CMP, EBS LIPID #### [facility] [address] ALT [Catalytic activity/Vol] 14 U/L Normal 10-60 [facility] Comment on above: Performed By: #### E BS CMP, EBS LIPID #### [address] AST [Catalytic activity/Vol] 15 U/L Normal 10-42 [facility] Comment on above: Performed By: #### E BS CMP, EBS LIPID #### [address] Bilirubin [Mass/Vol] 0.3 mg/dL Normal 0.3-1.2 [facility] Comment on above: Performed By: #### E BS CMP, EBS LIPID #### [address] Calcium [Mass/Vol] 9.3 mg/dL Normal 8.2-10.2 [facility] Comment on above: Performed By: #### E BS CMP, EBS LIPID #### [facility] [address] [place] [address] [place] Chloride [Moles/Vol] 101 mmol/L Normal 95-114 [facility] Comment on above: Performed By: #### E BS CMP, EBS LIPID #### [facility] [address] [place] [address] [place] CO2 [Moles/Vol] 23.8 mmol/L Normal 22.0-30.0 [facility] Comment on above: Performed By: #### E BS CMP, EBS LIPID #### [facility] [address] [place] [address] [place] Creatinine [Mass/Vol] 0.79 mg/dL Normal 0.44-1.03 [facility] Comment on above: Performed By: #### E BS CMP, EBS LIPID #### [facility] [address] Estimated GFR ( Aleena > 60 Normal [facility] Comment on above: Result Comment: GFR estimated reference range: According to KDOQI guidelines, <60 ml/min/1.73m2 is sufficient to diagnose a patient with chronic kidney disease. Performed By: #### E BS CMP, EBS LIPID #### [facility] [address] Estimated GFR (Non- Am > 60 [facility] Comment on above: Performed By: #### E BS CMP, EBS LIPID #### [facility] [address] [place] [address] Globulin (S) [Mass/Vol] 2.8 g/dL Normal [facility] Comment on above: Performed By: #### E BS CMP, EBS LIPID #### [facility] [address] [place] [address] Glucose [Mass/Vol] 76 mg/dL Normal 70-100 [facility] Comment on above: Performed By: #### E BS CMP, EBS LIPID #### [facility] [address] [place] [address] Potassium [Moles/Vol] 3.8 mmol/L Normal 3.5-5.1 [facility] Comment on above: Performed By: #### E BS CMP, EBS LIPID #### [facility] [address] [place] [address] Protein [Mass/Vol] 6.2 g/dL Normal 6.1-7.9 [facility] Comment on above: Performed By: #### E BS CMP, EBS LIPID #### [facility] [address] [place] [address] Sodium [Moles/Vol] 136 mmol/L Normal 136-146 [facility] Comment on above: Performed By: #### E BS CMP, EBS LIPID #### [facility] [address] [place] [address] [place] Urea nitrogen [Mass/Vol] 10 mg/dL Normal 9-23 [facility] Comment on above: Performed By: #### E SUSHIL ROA, EBS LIPID #### [facility] [address] [place] [address] [place] Creatinine and Glomerular fi ltration rate.predicted panel (S/P/Bld)Ordered By: Dom Paulino on 12-22-2021 Creatinine [Mass/Vol] 0.79 mg/dL 0.44-1.03 [facility] Estimated glomerular filtrat ion rate (GFR) non- AmericanOrdered By: Dom Paulino on 12-22-2021 GFR/1.73 sq M.predicted among non-blacks MDRD (S/P/Bld) [Vol rate/Area] > 60 mL/Min [facility] Globulin Calc (S) [Mass/Vol] Ordered By: Dom aPulino on 12-22-2021 Globulin (S) [Mass/Vol] 2.8 g/dL [facility] - Chemistry and C hemistry - challengeOrdered By: Dom Paulino on 12-22-2021 Glucose [Mass/Vol] 76 mg/dL 70-100 [facility] Lipid Profileon 12-22-2021 Cholesterol [Mass/Vol] 228 mg/dL High 140-200 [facility] Comment on above: Result Comment: Chol less than 200 mg/dl low risk Chol 201-239 mg/dl borderline risk Chol 240 mg/dl and greater high risk Performed By: #### E SUSHIL ROA, EBS LIPID #### [facility] [address] [place] [address] [place] Cholesterol in HDL [Mass/Vol] 73 mg/dL Normal 35-85 [facility] Comment on above: Result Comment: HDL CHOL ATP-III CLASSIFICATION Cardiovascular Risk HDL > or equal to 60 mg/dL LOW HDL < 40 mg/dL HIGH Performed By: #### E BS CMP, EBS LIPID #### [facility] [address] [place] [address] [place] Cholesterol.total/Janey sterol in HDL [Mass ratio] 3.1 {ratio} Normal <5.0 [facility] Comment on above: Result Comment: PERF ORMED BY: [place] [address] PATHOLOGIST ADVANCED QUALITY ENGINEER DENYS WOO M.D. Performed By: #### E BS CMP, EBS LIPID #### [facility] [address] LDL Cholesterol,Calculated 136 mg/dL High 0-100 [facility] Comment on above: Result Comment: LDL ATP III CLASSIFICATION LDL less than 100 mg/dL Optimal LDL 100-129 mg/dL Near or above optimal LDL 130-159 mg/dL Borderline high LDL 160-189 mg/dL High LDL greater than 189 mg/dL Very high Performed By: #### E BS CMP, EBS LIPID #### [address] Triglyceride w/Reflex 95 mg/dL Normal 35-149 [facility] Comment on above: Result Comment: TRIG ATP III CLASSIFICATION TRIG less than 150 mg/dL Normal TRIG 150-199 mg/dL Borderline high TRIG 200-500 mg/dL High TRIG greater than 500 mg/dL Very high Standard traceable to the Center for Disease Conrtrol and Prevention (CDC) test method. Performed By: #### E BS CMP, EBS LIPID #### [facility] [address] [place] [address] VLDL CHOLESTEROL 19 mg/dL Normal [facility] Comment on above: Performed By: #### E BS CMP, EBS LIPID #### [facility] [address] [place] [address] No Panel InformationOrdered By: Dom Paulino on 12-22-2021 Estimated GFR () > 60 mL/Min [facility] Comment on above: GFR estimated refere nce range: According to KDOQI guidelines, <60 ml/min/1.73m2 is sufficient to diagnose a patient with chronic kidney disease. Pharmacy Creatinine Clearance (Chem N/A [facility] Triglycerides Reflex 95 mg/dL 35-149 [facility] Comment on above: TRIG ATP III CLASSIF ICATION TRIG less than 150 mg/dL Normal TRIG 150-199 mg/dL Borderline high TRIG 200-500 mg/dL High TRIG greater than 500 mg/dL Very high Standard traceable to the Center for Disease Conrtrol and Prevention (CDC) test method. Protein [Mass/volume] in Ser um or PlasmaOrdered By: Dom Paulino on 12-22-2021 Protein [Mass/Vol] 6.2 g/dL 6.1-7.9 [facility] Serum or plasma alanine pan otransferase measurement without P-5'-P (enzymatic activiOrdered By: Dom Paulino on 12-22-2021 ALT No additional P-5'-P [Catalytic activity/Vol] 14 U/L 10-60 [facility] Serum or plasma albumin/glob ulin mass ratioOrdered By: Dom Paulino on 12-22-2021 Albumin/Globulin [Mass ratio] 1.2 {ratio} [facility] Serum or plasma alkaline nina sphatase measurement (enzymatic activity/volume)Ordered By: Dom Paulino on 12-22-2021 ALP [Catalytic activity/Vol] 48 U/L 32-92 [facility] Serum or plasma aspartate am inotransferase measurement (enzymatic activity/volume)Ordered By: Dom Paulino on 12-22-2021 AST [Catalytic activity/Vol] 15 U/L 10-42 [facility] Serum or plasma calcium dexter urement (mass/volume)Ordered By: Dom Paulino on 12-22-2021 Calcium [Mass/Vol] 9.3 mg/dL 8.2-10.2 [facility] Serum or plasma chloride glenis surement (moles/volume)Ordered By: Dom Paulino on 12-22-2021 Chloride [Moles/Vol] 101 mmol/L 95-114 [facility] Serum or plasma high density lipoprotein (HDL) cholesterol measurementOrdered By: Dom Paulino on 12-22-2021 Cholesterol in HDL [Mass/Vol] 73 mg/dL 35-85 [facility] Comment on above: HDL CHOL ATP-III CLA SSIFICATION Cardiovascular Risk HDL > or equal to 60 mg/dL LOW HDL < 40 mg/dL HIGH Serum or plasma potassium me asurement (moles/volume)Ordered By: Dom Paulino on 12-22-2021 Potassium [Moles/Vol] 3.8 mmol/L 3.5-5.1 [facility] Serum or plasma sodium measu rement (moles/volume)Ordered By: Dom Paulino on 12-22-2021 Sodium [Moles/Vol] 136 mmol/L 136-146 [facility] Serum or plasma total biliru bin measurement (mass/volume)Ordered By: Dom Paulino on 12-22-2021 Bilirubin [Mass/Vol] 0.3 mg/dL 0.3-1.2 [facility] Serum or plasma total carbon dioxide measurement (moles/volume)Ordered By: Dom Paulino on 12-22-2021 CO2 [Moles/Vol] 23.8 mmol/L 22.0-30.0 [facility] Serum or plasma total choles terol/high density lipoprotein (HDL) cholesterol mass ratOrdered By: Dom Paulino on 12-22-2021 Cholesterol.total/Janey sterol in HDL [Mass ratio] 3.1 {ratio} [facility] Serum or plasma urea nitroge n measurement (mass/volume)Ordered By: Dom Paulino on 12-22-2021 Urea nitrogen [Mass/Vol] 10 mg/dL 9-23 [facility] Outside Recordson 09-13-2021 Outside Records [id number]# 1.00[facility] Outside Recordson 08-28-2021 Outside Records [id number] #1.00[facility] Outside Records [id number] #1.00[facility] Consent Formson 07-14-2021 Consent Forms [id number] [address] [place] [address] Progress Note - Nurseon Progress Note - Nurse Antigen test ordered, test resulted positive, patient informed of positive result. In house test ordered, patient informed and swabbed, specimen sent to lab. [Electronically Signed on: 07/11/2021 16:04 EST] Kamini Tovar RN [Verified on: 07/11/2021 16:04 EST] Kamini Tovar RN [facility] Progress Note - Nurse Antigen test ordered, test resulted negative, patient informed of negative result. [Electronically Signed on: 07/11/2021 11:45 EST] Kamini Tovar RN [Verified on: 07/11/2021 11:45 EST] Kamini Tovar RN [facility] Measles (Rubeola) Imon 11-28 Measles (Rubeola) Im 3.49 Normal >1.09 [facility] Comment on above: Result Comment: Interpretation: IMMUNE Reference Range: <0.91 Not Immune 0.91-1.09 Equivocal >1.09 Immune Performed By: #### M EI, JUDY, VZI, TSPOT, MEÑO #### [address] [address] Portfolio Architect: Maury Watts MD Mumps,Immun,Abon 11-28-2020 Mumps,Immun,Ab 1.48 Normal >1.09 [facility] Comment on above: Result Comment: Interpretation: IMMUNE Reference Range: <0.91 Not Immune 0.91-1.09 Equivocal >1.09 Immune Performed By: #### M EI, JUDY, VZI, TSPOT, MEÑO #### [facility] TEAM INTERVAL [address] [place] [address] Portfolio Architect: Maury Watts MD T-Spoton 11-28-2020 T-Spot. TB Test Normal [facility] Comment on above: Result Comment: [facility] zintin [address] [place] [id number] (NOTE) T-SPOT.TB Test Results --------- T-SPOT TB [...] M EI, JUDY, VZI, TSPOT, MEÑO #### [employer] [address] [place] [address] Portfolio Architect: Maury Watts MD VZ Immunityon 11-28-2020 VZ Immunity 2.04 Normal >1.09 [facility] Comment on above: Result Comment: Interpretation: IMMUNE Reference Range: <0.91 Not Immune 0.91-1.09 Equivocal >1.09 Immune Performed By: #### M EI, JUDY, VZI, TSPOT, MEÑO #### [employer] [address] [place], [place] [id number] Portfolio Architect: Maury Watts MD Rubella Ab, IgGon 11-25-2020 Rubella Ab, IgG 150.4 IU/mL Normal [facility] Comment on above: Result Comment: REFERENCE RANGE: <5.0 NON-REACTIVE (non-immune) 5.0 TO 9.9 EQUIVOCAL >=10.0 REACTIVE (immune) Performed By: #### M EI, JUDY, VZI, TSPOT, MEÑO #### [employer] [address] [id number] Portfolio Architect: Maury Watts MD Rubella antibody, IgGOrdered By: Morales Gardner on 11-25-2020 Rubella virus IgG Ql (S) 150.4 IU/mL [employer] Phone: Comment on above: REFERENCE RANGE: <5.0 NON-REACTIVE (non-immune) 5.0 TO 9.9 EQUIVOCAL >=10.0 REACTIVE (immune) [employer] Phone: Encounters Encounter Date Encounter Type Care [...] respiratory examination DR ANGIE VIVAR . [facility] Start: 08-16-2022 End: 08-17-[address] ANGIE VIVAR . Facility:[facility] Start: 08-16-2022 End: 08-17-2022 Encounter for preprocedural respiratory examination DR ANGIE VIVAR . Facility:[facility] Start: 06-13-2022 End: 06-13-[address] ANGIE VIVAR . Facility:[facility] Start: 04-26-2022 End: 04-27-2022 ambulatory [facility] Facility:[facility] Start: 12-22-2021 End: 12-22-2021 Departed Referred [facility] [address] Start: 07-13-2021 End: 07-13-2021 ambulatory [facility] Facility:[facility] Start: 07-12-2021 End: 07-12-2021 ambulatory [facility] Facility:[facility] Start: 11-25-2020 End: 11-26-2020 ambulatory MORALES GARDNER [facility] Start: 11-25-2020 End: 11-25-2020 Subsequent hospital visit by physician [facility] Laboratory Procedures Date Procedure Procedure Detail Performing Clinician Start: 11-25-2020 Antibody rubella Omkar Gardner MD Work Phone: Plan of Treatment Date Care Activity Detail Author Start: 03-08-2021 Influenza vaccination Flu vacc ine (Season Ended) [facility] Phone: Start: 2005 COVID-19 Vaccine (1) COVID-19 Vaccin e (1) [facility] Phone: End: 11-25-2020 Mumps Antibody, IgG Mumps Antibody, IgG Lab Routine Once for 1 Occurrences starting 11/25/2020 until 11/25/2020 [facility] Phone: Comment on above: Once for 1 Occurrenc es starting 11/25/2020 until 11/25/2020 Mumps Antibody, IgG Mumps Antibo dy, IgG Lab Routine 11/25/2020 3:18 PM EDT [facility] Phone: End: 11-25-2020 Rubeola Antibody, IgG Rubeola Antibody, IgG Lab Routine Once for 1 Occurrences starting 11/25/2020 until 11/25/2020 [facility] Phone: Comment on above: Once for 1 Occurrenc es starting 11/25/2020 until 11/25/2020 Rubeola Antibody, IgG Rubeola An tibody, IgG Lab Routine 11/25/2020 3:18 PM EDT [facility] Phone: End: 11-25-2020 Tb antigen response gamma interferon t-cell susp T-Spot TB Test Lab Routine Once for 1 Occurrences starting 11/25/2020 until 11/25/2020 [facility] Phone: Comment on above: Once for 1 Occurrenc es starting 11/25/2020 until 11/25/2020 Tb antigen response gamma interferon t-cell susp T-Spot TB Test Lab Routine 11/25/2020 3:18 PM EDT [facility] Phone: End: 11-25-2020 Varicella Zoster Antibody, IgG Varicella Zoster Antibody, IgG Lab Routine Once for 1 Occurrences starting 11/25/2020 until 11/25/2020 [facility] Phone: Comment on above: Once for 1 Occurrenc es starting 11/25/2020 until 11/25/2020 Varicella Zoster Antibody, IgG Varicella Zoster Antibody, IgG Lab Routine 11/25/2020 3:18 PM EDT [facility] Phone: Payers Date Payer Category Payer Unknown [id number] 2020 Unknown [id number] 1993 Unknown [id number] 2.16.84 [id number] 1993 Unknown [id number] 2.16.84 0.1.496672.3.579.2.593 1993 Unknown [id number] 2.16.84 0.1.884994.3.579.2.593 1993 Unknown [id number] 2.16.84 0.1.523925.3.579.2.593 1993 Unknown [id number] 2.16.84 0.1.319107.3.579.2.9 1993 Unknown [id number] 2.16.84 0.1.751558.3.579.2.1258 1993 Unknown [id number] 2.16.84 0.1.655806.3.579.2.1258 1993 Unknown [id number] 2.16.84 0.1.922952.3.579.2.1258 1993 Unknown [id number] 2.16.84 0.1.135212.3.579.2.1258 1993 Unknown [id number] 2.16.84 0.1.457760.3.579.2.1258 1993 Unknown [id number] 2.16.84 0.1.221530.3.579.2.9 1993 Unknown [id number] 2.16.84 0.1.773766.3.579.2.1258 1993 Unknown [id number] 2.16.84 0.1.124209.3.579.2.9 1993 Unknown [id number] 2.16.840. 1.965894.3.579.2.9 1959 Unknown [id number] Self-pay Self Pay [id number] [phone] Social History Date Type Detail Facility Tobacco smoking stat [facility] Unknown if ever smoked [facility] Phone: Start: 1995 Sex Assigned At Not on file [facility] Phone: Start: 1995 Sex Assigned At Female F [facility] Clinical Note 08-23-2022 Note Date & Type Note Facility 08-23-2022 Note OPERATIVE NOTE OPERATION DATE: 08/23/2022 PROCEDURE: LEEP Procedure. PREOPERATIVE DIAGNOSIS: Cervical dysplasia. POSTOPERATIVE DIAGNOSIS: Cervical dysplasia. ANESTHESIA: General. SURGEON: Angie Vivar D.O. DECK LID FITTER: None. BLOOD LOSS: 5 mL. SPECIMEN: Ectocervical [...] to Recovery Room in stable condition. [facility] Medication management note 06-11-2022 Note Date & Type Note Facility 06-11-2022 Note Entered by Diane Wadsworth on June 11, 2022 09:44:53 EST From: Diane Wadsworth To: [facility] #[id number] Sent: 06/11/2022 09:44:53 EST Subject: Medication Management Submitted: Complete:desogestrel-ethinyl estradiol (Velivet oral tablet) Signed by Diane Wadsworth 06/11/2022 09:44:00 EST Approved desogestrel-ethinyl estradiol (VELIVET 28 DAY TABLET) take 1 tablet by mouth once daily Qty: 84 tab(s) Days Supply: 84 Refills: 0 Substitutions Allowed Route To Pharmacy - [facility] #[id number] Signed by iDane Wadsworth Patient matched by Diane Wadsworth on 06/11/2022 09:41:06 EST From: [facility][id number] To: Bhavya Estrada MD Sent: June 11, 2022 8:39:02 AM GEOLOGY SCIENTIST Subject: Medication Management Due: June 12, 2022 12:05:33 AM 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 Signature Drug: desogestrel-ethinyl estradiol (Velivet oral tablet), take 1 tablet by mouth once daily Quantity: 84 tab(s) Days Supply: 84 Refills: 1 Substitutions Allowed Notes from Pharmacy: Dispensed Drug: desogestrel-ethinyl estradiol (Velivet oral tablet), take 1 tablet by mouth once daily Quantity: 84 tab(s) Days Supply: 84 Refills: 0 Substitutions Allowed Notes from Pharmacy: [facility] Evaluation note Note Date & Type Note Facility Evaluation note No assessment information availa [facility] Work Phone: Summary Purpose Family History [...] and content) DATE CREATED AUTHOR 12/02/2020 [facility] DATE CREATED AUTHOR AUTHOR'S ORGANIZ ATION 12/23/2021 [facility] DATE CREATED AUTHOR AUTHOR'S ORGANIZ ATION 06/11/2022 [facility] DATE CREATED AUTHOR AUTHOR'S ORGANIZ ATION 09/05/2022 [facility] DATE CREATED AUTHOR AUTHOR'S ORGANIZ ATION 03/05/2024 [facility] EPIC Care Teams (unrecognized sec tion [...] BE BASED ON THE PRIMARY CLINICAL RECORDS. [employer] provides no warranty or guarantee of the accuracy or completeness of information in this document.
== END 2024-03-17 23:59 | disposition home or self-care (01) ==
LOC: NOMS 03-18 14:45
PROVIDERS: Visit Provider Physician Assistant
DX: O26.843 Uterine size-date discrepancy, third trimester (principal); Z3A.35 35 weeks gestation of pregnancy
CPT/HCPCS: 76816; 87081; 87150

== ENCOUNTER 2024-03-17 19:24 | Outpatient (REF) | payer BC, SELFPAY ==
--- OUTSIDE RECORDS SUMMARY | 2024-03-17 19:29 | XMS_ITS | CCD ---
Author Organization [facility] Care Team Providers Care Barkeeper Name Role Phone Unavailable Primary Care Provider [...] (2 sources) Amoxicillin; Translations: [amoxicillin] Drug Allergy [facility] Repository (1 source) tiZANidine; Translations: [tiZANidine] Drug Allergy [facility] Repository Problems Problem Classification [...] 08-23-2022 BASO # 0.1 103/ul Normal 0.0-0.1 [facility] Comment on above: Performed By: #### C BC #### [facility] [address] [place] [address] Dr. Car Lozada Basophils/100 WBC (Bld) 0.5 % Normal 0.2-2.0 [facility] Comment on above: Performed By: #### C BC #### [facility] [address] [place] [address] Dr. Car Lozada EO # 0.6 103/ul Normal 0.0-0.7 [facility] Comment on above: Performed By: #### C BC #### [facility] [address] [place] [address] Dr. Car Lozada Eosinophils/100 WBC (Bld) 5.9 % Normal 0.9-7.0 [facility] Comment on above: Performed By: #### C BC #### [facility] [address] [place] [address] Dr. Car Lozada Erythrocyte distribution width (RBC) [Ratio] 12.6 % Normal 11.0-15.0 [facility] Comment on above: Performed By: #### C BC #### [facility] [address] [place] [address] Dr. Car Lozada Hematocrit (Bld) [Volume fraction] 42.0 % Normal 36.0-48.0 [facility] Comment on above: Performed By: #### C BC #### [facility] [address] [address] [address] Car Lozada Hemoglobin (Bld) [Mass/Vol] 14.1 g/dL Normal 12.0-16.0 [facility] Comment on above: Performed By: #### C BC #### [facility] [address] [address] [address] Car Lozada IG # 0.04 10e3/ul Critically high 0.00-0.03 [facility] Comment on above: Performed By: #### C BC #### [facility] [address] [place] [address] Dr. Car Lozada IG % 0.4 % Normal 0.0-0.5 [facility] Comment on above: Performed By: #### C BC #### [facility] [address] [place] [address] Dr. Car Lozada LYMPH # 3.6 103/ul Normal 1.2-3.8 [facility] Comment on above: Performed By: #### C BC #### [facility] [address] [place] [address] Dr. Car Lozada Lymphocytes/100 WBC (Bld) 34.7 % Normal 20.5-60.0 [facility] Comment on above: Performed By: #### C BC #### [facility] [address] [place] [address] Dr. Car Lozada MANUAL DIFF REQ NO Normal [facility] Comment on above: Performed By: #### C BC #### [facility] [address] [place] [address] Dr. Car Lozada MCH (RBC) [Entitic mass] 31.2 pg Normal 26.7-34.0 [facility] Comment on above: Performed By: #### C BC #### [facility] [address] [place] [address] Dr. Car Lozada MCHC (RBC) [Mass/Vol] 33.6 g/dL Normal 29.9-35.2 [facility] Comment on above: Performed By: #### C BC #### [facility] [address] [place] [address] Dr. Car Lozada MCV (RBC) [Entitic vol] 92.9 fL Normal 81.0-99.0 [facility] Comment on above: Performed By: #### C BC #### [facility] [address] [place] [address] Dr. Car Lozada MONO # 0.9 103/ul Critically high 0.3-0.8 [facility] Comment on above: Performed By: #### C BC #### [facility] [address] [place] [address] Dr. Car Lozada Monocytes/100 WBC (Bld) 8.3 % Normal 1.7-12.0 [facility] Comment on above: Performed By: #### C BC #### [facility] [address] [place] [address] Dr. Car Lozada NEUT # 5.2 103/ul Normal 1.4-6.5 [facility] Comment on above: Performed By: #### C BC #### [facility] [address] [place] [address] Dr. Car Lozada Neutrophils/100 WBC (Bld) 50.2 % Normal 43.0-75.0 [facility] Comment on above: Performed By: #### C BC #### [facility] [address] [place] [address] Dr. Car Lozada Platelet mean volume (Bld) [Entitic vol] 10.0 fL Normal 9.5-13.5 [facility] Comment on above: Performed By: #### C BC #### [facility] [address] [place] [address] Dr. Car Lozada PLT 251 103/ul Normal 150-450 [facility] Comment on above: Performed By: #### C BC #### [facility] [address] [place] [address] Dr. Car Lozada RBC 4.52 106/ul Normal 4.20-5.40 [facility] Comment on above: Performed By: #### C BC #### [facility] [address] [place] [address] Dr. Car Lozada WBC 10.3 103/ul Normal 4.0-11.0 [facility] Comment on above: Performed By: #### C BC #### [facility] [address] [place] [address] Dr. Car Lozada PREG QUANT HCGon 08-23-2022 HCG QUANT <1 Normal [facility] Comment on above: Performed By: #### P REGQNT #### [facility] [address] [place] [address] Dr. Car Lozada HCG RANGE SEE BELOW Normal [facility] Comment on above: Result Comment: 5-50 0.2-1 WEEK 50-500 1-2 WEEKS 100-5,000 2-3 WEEKS 500-10,000 3-4 WEEKS 1,000-50,000 4-5 WEEKS 10,000-100,000 5-6 WEEKS 15,000-200,000 6-8 WEEKS 10,000-100,000 2-3 MONTHS Performed By: #### P REGQNT #### [facility] [address] [place] [address] Dr. Car Lozada XR CHEST 2 Von [...] JOSÉ MIGUEL LIMON Date: 2022-08-16 10:17 Normal [facility] PAP ACOG PANEL 2: 21 to 29on 06-25-2022 . . Normal [facility] Comment on above: Performed By: #### [id number] #### [facility] [address] [place] [address] Dr. Car Lozada Age Gdln ACOG Testing 21-29 Normal [facility] Comment on above: Performed By: #### [id number] #### [facility] [address] [place] [address] Dr. Car Lozada DIAGNOSIS: Comment Abnormal [facility] Comment on above: Result Comment: EPIT HELIAL CELL ABNORMALITY. LOW GRADE SQUAMOUS INTRAEPITHELIAL LESION (LSIL). Performed By: #### [id number] #### [facility] [address] [place] [address] Dr. Car Lozada Electronically signed by: Comment Normal [facility] Comment on above: Result Comment: Phyllis Vital MD, Pathologist Performed By: #### [id number] #### [facility] [address] [address] [address] Car Lozada Methodology: Comment Normal [facility] Comment on above: Result Comment: This liquid based ThinPrep(R) pap test was screened with the use of an image guided system. Performed By: #### [id number] #### [facility] [address] [place] [address] Dr. Car Lozada Note: Comment Normal [facility] Comment on above: Result Comment: The Pap smear is a screening test designed to aid in the detection of premalignant and malignant conditions of the uterine cervix. It is not a diagnostic procedure and should not be used as the sole means of detecting cervical cancer. Both false-positive and false-negative reports do occur. . Performed By: #### [id number] #### [facility] [address] [place] [address] Dr. Car Lozada Pathologist Provided ICD10 Comment Normal [facility] Comment on above: Result Comment: [id number] Performed By: #### [id number] #### [facility] [address] [place] [address] Dr. Car Lozada Performed by: Comment Normal [facility] Comment on above: Result Comment: Sidney Masters, Rigger Supervisor (ASCP) Performed By: #### [id number] #### [facility] [address] [place] [address] Dr. Car Lozada Recommendation: Comment Abnormal [facility] Comment on above: Result Comment: Sugg est follow up as clinically appropriate. Performed By: #### [id number] #### [facility] [address] [address] [address] Car Lozada Reflex Criteria: Comment Normal [facility] Comment on above: Result Comment: The HPV DNA reflex criteria were not met with this specimen result therefore, no HPV testing was performed. . Performed By: #### [id number] #### [facility] [address] [address] [address] Car Lozada Specimen adequacy: Comment Normal [facility] Comment on above: Result Comment: Sati sfactory for evaluation. Endocervical and/or squamous metaplastic cells (endocervical component) are present. Performed By: #### [id number] #### [facility] [address] [address] [address] Car Lozada Body fluid albumin measureme nt (mass/volume)Ordered By: Dom Paulino on 12-22-2021 Albumin (Body fld) [Mass/Vol] 3.4 g/dL 3.2-5.5 [facility] Cholesterol [Mass/volume] in Serum or PlasmaOrdered By: Dmo Paulino on 12-22-2021 Cholesterol [Mass/Vol] 228 mg/dL 140-200 [facility] Comment on above: Chol less than 200 m g/dl low risk Chol 201-239 mg/dl borderline risk Chol 240 mg/dl and greater high risk Cholesterol in LDL Calc [Mas s/Vol]Ordered By: Dom Paulino on 12-22-2021 Cholesterol in LDL [Mass/Vol] 136 mg/dL 0-100 [facility] Comment on above: LDL ATP III CLASSIFI CATION LDL less than 100 mg/dL Optimal LDL 100-129 mg/dL Near or above optimal LDL 130-159 mg/dL Borderline high LDL 160-189 mg/dL High LDL greater than 189 mg/dL Very high Cholesterol in VLDL Calc [Ma ss/Vol]Ordered By: Dom Paulino on 12-22-2021 Cholesterol in VLDL [Mass/Vol] 19 mg/dL [facility] Comprehensive Metabolic Empo n 12-22-2021 Albumin [Mass/Vol] 3.4 g/dL Normal 3.2-5.5 [facility] Comment on above: Performed By: #### E BS CMP, EBS LIPID #### [facility] [address] Albumin/Globulin [Mass ratio] 1.2 {ratio} Normal [facility] Comment on above: Performed By: #### E BS CMP, EBS LIPID #### [facility] [address] ALP [Catalytic activity/Vol] 48 U/L Normal 32-92 [facility] Comment on above: Performed By: #### E BS CMP, EBS LIPID #### [facility] [address] ALT [Catalytic activity/Vol] 14 U/L Normal 10-60 [facility] Comment on above: Performed By: #### E BS CMP, EBS LIPID #### [address] AST [Catalytic activity/Vol] 15 U/L Normal 10-42 [facility] Comment on above: Performed By: #### E BS CMP, EBS LIPID #### [address] Bilirubin [Mass/Vol] 0.3 mg/dL Normal 0.3-1.2 [facility] Comment on above: Performed By: #### E BS CMP, EBS LIPID #### [address] Calcium [Mass/Vol] 9.3 mg/dL Normal 8.2-10.2 [facility] Comment on above: Performed By: #### E BS CMP, EBS LIPID #### [facility] [address] [place] [address] [place] Chloride [Moles/Vol] 101 mmol/L Normal 95-114 [facility] Comment on above: Performed By: #### E BS CMP, EBS LIPID #### [facility] [address] [place] [address] [place] CO2 [Moles/Vol] 23.8 mmol/L Normal 22.0-30.0 [facility] Comment on above: Performed By: #### E BS CMP, EBS LIPID #### [facility] [address] [place] [address] [place] Creatinine [Mass/Vol] 0.79 mg/dL Normal 0.44-1.03 [facility] Comment on above: Performed By: #### E BS CMP, EBS LIPID #### [facility] [address] Estimated GFR ( Aleena > 60 Normal [facility] Comment on above: Result Comment: GFR estimated reference range: According to KDOQI guidelines, <60 ml/min/1.73m2 is sufficient to diagnose a patient with chronic kidney disease. Performed By: #### E BS CMP, EBS LIPID #### [facility] [address] Estimated GFR (Non- Am > 60 [facility] Comment on above: Performed By: #### E BS CMP, EBS LIPID #### [facility] [address] [place] [address] Globulin (S) [Mass/Vol] 2.8 g/dL Normal [facility] Comment on above: Performed By: #### E BS CMP, EBS LIPID #### [facility] [address] [place] [address] Glucose [Mass/Vol] 76 mg/dL Normal 70-100 [facility] Comment on above: Performed By: #### E BS CMP, EBS LIPID #### [facility] [address] [place] [address] Potassium [Moles/Vol] 3.8 mmol/L Normal 3.5-5.1 [facility] Comment on above: Performed By: #### E BS CMP, EBS LIPID #### [facility] [address] [place] [address] Protein [Mass/Vol] 6.2 g/dL Normal 6.1-7.9 [facility] Comment on above: Performed By: #### E BS CMP, EBS LIPID #### [facility] [address] [place] [address] Sodium [Moles/Vol] 136 mmol/L Normal 136-146 [facility] Comment on above: Performed By: #### E BS CMP, EBS LIPID #### [facility] [address] [place] [address] [place] Urea nitrogen [Mass/Vol] 10 mg/dL Normal 9-23 [facility] Comment on above: Performed By: #### E SUSHIL ROA, EBS LIPID #### [facility] [address] [place] [address] [place] Creatinine and Glomerular fi ltration rate.predicted panel (S/P/Bld)Ordered By: Dom Paulino on 12-22-2021 Creatinine [Mass/Vol] 0.79 mg/dL 0.44-1.03 [facility] Estimated glomerular filtrat ion rate (GFR) non- AmericanOrdered By: Dom Paulino on 12-22-2021 GFR/1.73 sq M.predicted among non-blacks MDRD (S/P/Bld) [Vol rate/Area] > 60 mL/Min [facility] Globulin Calc (S) [Mass/Vol] Ordered By: Dom Paulino on 12-22-2021 Globulin (S) [Mass/Vol] 2.8 g/dL [facility] - Chemistry and C hemistry - challengeOrdered By: Dom Paulino on 12-22-2021 Glucose [Mass/Vol] 76 mg/dL 70-100 [facility] Lipid Profileon 12-22-2021 Cholesterol [Mass/Vol] 228 mg/dL High 140-200 [facility] Comment on above: Result Comment: Chol less than 200 mg/dl low risk Chol 201-239 mg/dl borderline risk Chol 240 mg/dl and greater high risk Performed By: #### E SUSHIL ROA, EBS LIPID #### [facility] [address] [place] [address] [place] Cholesterol in HDL [Mass/Vol] 73 mg/dL Normal 35-85 [facility] Comment on above: Result Comment: HDL CHOL ATP-III CLASSIFICATION Cardiovascular Risk HDL > or equal to 60 mg/dL LOW HDL < 40 mg/dL HIGH Performed By: #### E BS CMP, EBS LIPID #### [facility] [address] [place] [address] [place] Cholesterol.total/Janey sterol in HDL [Mass ratio] 3.1 {ratio} Normal <5.0 [facility] Comment on above: Result Comment: PERF ORMED BY: [place] [address] PATHOLOGIST BANK COURIER DENYS WOO M.D. Performed By: #### E BS CMP, EBS LIPID #### [facility] [address] LDL Cholesterol,Calculated 136 mg/dL High 0-100 [facility] Comment on above: Result Comment: LDL ATP III CLASSIFICATION LDL less than 100 mg/dL Optimal LDL 100-129 mg/dL Near or above optimal LDL 130-159 mg/dL Borderline high LDL 160-189 mg/dL High LDL greater than 189 mg/dL Very high Performed By: #### E BS CMP, EBS LIPID #### [address] Triglyceride w/Reflex 95 mg/dL Normal 35-149 [facility] Comment on above: Result Comment: TRIG ATP III CLASSIFICATION TRIG less than 150 mg/dL Normal TRIG 150-199 mg/dL Borderline high TRIG 200-500 mg/dL High TRIG greater than 500 mg/dL Very high Standard traceable to the Center for Disease Conrtrol and Prevention (CDC) test method. Performed By: #### E BS CMP, EBS LIPID #### [facility] [address] [place] [address] VLDL CHOLESTEROL 19 mg/dL Normal [facility] Comment on above: Performed By: #### E BS CMP, EBS LIPID #### [facility] [address] [place] [address] No Panel InformationOrdered By: Dom Paulino on 12-22-2021 Estimated GFR () > 60 mL/Min [facility] Comment on above: GFR estimated refere nce range: According to KDOQI guidelines, <60 ml/min/1.73m2 is sufficient to diagnose a patient with chronic kidney disease. Pharmacy Creatinine Clearance (Chem N/A [facility] Triglycerides Reflex 95 mg/dL 35-149 [facility] Comment on above: TRIG ATP III CLASSIF ICATION TRIG less than 150 mg/dL Normal TRIG 150-199 mg/dL Borderline high TRIG 200-500 mg/dL High TRIG greater than 500 mg/dL Very high Standard traceable to the Center for Disease Conrtrol and Prevention (CDC) test method. Protein [Mass/volume] in Ser um or PlasmaOrdered By: Dom Paulino on 12-22-2021 Protein [Mass/Vol] 6.2 g/dL 6.1-7.9 [facility] Serum or plasma alanine pan otransferase measurement without P-5'-P (enzymatic activiOrdered By: Dom Paulino on 12-22-2021 ALT No additional P-5'-P [Catalytic activity/Vol] 14 U/L 10-60 [facility] Serum or plasma albumin/glob ulin mass ratioOrdered By: Dom Paulino on 12-22-2021 Albumin/Globulin [Mass ratio] 1.2 {ratio} [facility] Serum or plasma alkaline nina sphatase measurement (enzymatic activity/volume)Ordered By: Dom Paulino on 12-22-2021 ALP [Catalytic activity/Vol] 48 U/L 32-92 [facility] Serum or plasma aspartate am inotransferase measurement (enzymatic activity/volume)Ordered By: Dom Paulino on 12-22-2021 AST [Catalytic activity/Vol] 15 U/L 10-42 [facility] Serum or plasma calcium dexter urement (mass/volume)Ordered By: Dom Paulino on 12-22-2021 Calcium [Mass/Vol] 9.3 mg/dL 8.2-10.2 [facility] Serum or plasma chloride glenis surement (moles/volume)Ordered By: Dom Paulino on 12-22-2021 Chloride [Moles/Vol] 101 mmol/L 95-114 [facility] Serum or plasma high density lipoprotein (HDL) cholesterol measurementOrdered By: Dom Paulino on 12-22-2021 Cholesterol in HDL [Mass/Vol] 73 mg/dL 35-85 [facility] Comment on above: HDL CHOL ATP-III CLA SSIFICATION Cardiovascular Risk HDL > or equal to 60 mg/dL LOW HDL < 40 mg/dL HIGH Serum or plasma potassium me asurement (moles/volume)Ordered By: Dom Paulino on 12-22-2021 Potassium [Moles/Vol] 3.8 mmol/L 3.5-5.1 [facility] Serum or plasma sodium measu rement (moles/volume)Ordered By: Dom Paulino on 12-22-2021 Sodium [Moles/Vol] 136 mmol/L 136-146 [facility] Serum or plasma total biliru bin measurement (mass/volume)Ordered By: Dom Paulino on 12-22-2021 Bilirubin [Mass/Vol] 0.3 mg/dL 0.3-1.2 [facility] Serum or plasma total carbon dioxide measurement (moles/volume)Ordered By: Dom Paulino on 12-22-2021 CO2 [Moles/Vol] 23.8 mmol/L 22.0-30.0 [facility] Serum or plasma total choles terol/high density lipoprotein (HDL) cholesterol mass ratOrdered By: Dom Paulino on 12-22-2021 Cholesterol.total/Janey sterol in HDL [Mass ratio] 3.1 {ratio} [facility] Serum or plasma urea nitroge n measurement (mass/volume)Ordered By: Dom Paulino on 12-22-2021 Urea nitrogen [Mass/Vol] 10 mg/dL 9-23 [facility] Outside Recordson 09-13-2021 Outside Records [id number]# 1.00[facility] Outside Recordson 08-28-2021 Outside Records [id number] #1.00[facility] Outside Records [id number] #1.00[facility] Consent Formson 07-14-2021 Consent Forms [id number] [address] [place] [address] Progress Note - Nurseon Progress Note - Nurse Antigen test ordered, test resulted positive, patient informed of positive result. In house test ordered, patient informed and swabbed, specimen sent to lab. [Electronically Signed on: 07/11/2021 16:04 EST] Kamini Tovar RN [Verified on: 07/11/2021 16:04 EST] Kamini Tovar RN [facility] Progress Note - Nurse Antigen test ordered, test resulted negative, patient informed of negative result. [Electronically Signed on: 07/11/2021 11:45 EST] Kamini Tovar RN [Verified on: 07/11/2021 11:45 EST] Kamini Tovar RN [facility] Measles (Rubeola) Imon 11-28 Measles (Rubeola) Im 3.49 Normal >1.09 [facility] Comment on above: Result Comment: Interpretation: IMMUNE Reference Range: <0.91 Not Immune 0.91-1.09 Equivocal >1.09 Immune Performed By: #### M EI, JUDY, VZI, TSPOT, MEÑO #### [address] [address] Rebrander: Maury Watts MD Mumps,Immun,Abon 11-28-2020 Mumps,Immun,Ab 1.48 Normal >1.09 [facility] Comment on above: Result Comment: Interpretation: IMMUNE Reference Range: <0.91 Not Immune 0.91-1.09 Equivocal >1.09 Immune Performed By: #### M EI, JUDY, VZI, TSPOT, MEÑO #### [facility] [employer] [address] [place] [address] Rebrander: Maury Watts MD T-Spoton 11-28-2020 T-Spot. TB Test Normal [facility] Comment on above: Result Comment: [facility] [employer] [address] [place] [phone] (NOTE) T-SPOT.TB Test Results --------- T-SPOT TB [...] M EI, JUDY, VZI, TSPOT, MEÑO #### [employer] [address] [place] [address] Rebrander: Maury Watts MD VZ Immunityon 11-28-2020 VZ Immunity 2.04 Normal >1.09 [facility] Comment on above: Result Comment: Interpretation: IMMUNE Reference Range: <0.91 Not Immune 0.91-1.09 Equivocal >1.09 Immune Performed By: #### M EI, JUDY, VZI, TSPOT, MEÑO #### [employer] [address] [place], [place] [id number] Rebrander: Maury Watts MD Rubella Ab, IgGon 11-25-2020 Rubella Ab, IgG 150.4 IU/mL Normal [facility] Comment on above: Result Comment: REFERENCE RANGE: <5.0 NON-REACTIVE (non-immune) 5.0 TO 9.9 EQUIVOCAL >=10.0 REACTIVE (immune) Performed By: #### M EI, JUDY, VZI, TSPOT, MEÑO #### [employer] [address] [id number] Rebrander: Maury Watts MD Rubella antibody, IgGOrdered By: Morales Gardner on 11-25-2020 Rubella virus IgG Ql (S) 150.4 IU/mL [facility] Phone: Comment on above: REFERENCE RANGE: <5.0 NON-REACTIVE (non-immune) 5.0 TO 9.9 EQUIVOCAL >=10.0 REACTIVE (immune) [facility] Phone: Encounters Encounter Date Encounter Type Care [...] Available Start: 05-21-2023 End: 05-21-2023 ambulatory ANGIE JFEFRY Not Available Start: 08-23-2022 End: 08-23-[address] ANGIE VIVAR . Facility:[facility] Start: 08-20-2022 Encounter for preprocedural respiratory examination DR ANGIE VIVAR . [facility] Start: 08-16-2022 End: 08-17-[address] ANGIE VIVAR . Facility:[facility] Start: 08-16-2022 End: 08-17-2022 Encounter for preprocedural respiratory examination DR ANGIE VIVAR . Facility:[facility] Start: 06-13-2022 End: 06-13-[address] ANGIE VIVAR . Facility:[facility] Start: 04-26-2022 End: 04-27-2022 ambulatory [facility] Facility:[facility] Start: 12-22-2021 End: 12-22-[address] [facility] [address] Start: 07-13-2021 End: 07-13-2021 ambulatory [facility] Facility:[facility] Start: 07-12-2021 End: 07-12-2021 ambulatory [facility] Facility:[facility] Start: 11-25-2020 End: 11-26-2020 ambulatory MORALES GARDNER [facility] Start: 11-25-2020 End: 11-25-2020 Subsequent hospital visit by physician [facility] Procedures Date Procedure Procedure Detail Performing Clinician Start: 11-25-2020 Antibody rubella Omkar Gardner MD Work Phone: Plan of Treatment Date Care Activity Detail Author Start: 03-08-2021 Influenza vaccination Flu vacc ine (Season Ended) [facility] Phone: Start: 2005 COVID-19 Vaccine (1) COVID-19 Vaccin e (1) [facility] Phone: End: 11-25-2020 Mumps Antibody, IgG Mumps Antibody, IgG Lab Routine Once for 1 Occurrences starting 11/25/2020 until 11/25/2020 [facility] Phone: Comment on above: Once for 1 Occurrenc es starting 11/25/2020 until 11/25/2020 Mumps Antibody, IgG Mumps Antibo dy, IgG Lab Routine 11/25/2020 3:18 PM EDT [facility] Phone: End: 11-25-2020 Rubeola Antibody, IgG Rubeola Antibody, IgG Lab Routine Once for 1 Occurrences starting 11/25/2020 until 11/25/2020 [facility] Phone: Comment on above: Once for 1 Occurrenc es starting 11/25/2020 until 11/25/2020 Rubeola Antibody, IgG Rubeola An tibody, IgG Lab Routine 11/25/2020 3:18 PM EDT [facility] Phone: End: 11-25-2020 Tb antigen response gamma interferon t-cell susp T-Spot TB Test Lab Routine Once for 1 Occurrences starting 11/25/2020 until 11/25/2020 [facility] Phone: Comment on above: Once for 1 Occurrenc es starting 11/25/2020 until 11/25/2020 Tb antigen response gamma interferon t-cell susp T-Spot TB Test Lab Routine 11/25/2020 3:18 PM EDT [facility] Phone: End: 11-25-2020 Varicella Zoster Antibody, IgG Varicella Zoster Antibody, IgG Lab Routine Once for 1 Occurrences starting 11/25/2020 until 11/25/2020 [facility] Phone: Comment on above: Once for 1 Occurrenc es starting 11/25/2020 until 11/25/2020 Varicella Zoster Antibody, IgG Varicella Zoster Antibody, IgG Lab Routine 11/25/2020 3:18 PM EDT [facility] Phone: Payers Date Payer Category Payer Unknown [id number] 2020 Unknown [id number] 1993 Unknown [id number] 2.16.84 [id number] 1993 Unknown [id number] 2.16.84 0.1.380586.3.579.2.593 1993 Unknown [id number] 2.16.84 0.1.380304.3.579.2.593 1993 Unknown [id number] 2.16.84 0.1.768662.3.579.2.593 1993 Unknown [id number] 2.16.84 0.1.468813.3.579.2.9 1993 Unknown [id number] 2.16.84 0.1.689967.3.579.2.1258 1993 Unknown [id number] 2.16.84 0.1.888270.3.579.2.1258 1993 Unknown [id number] 2.16.84 0.1.279393.3.579.2.1258 1993 Unknown [id number] 2.16.84 0.1.625824.3.579.2.1258 1993 Unknown [id number] 2.16.84 0.1.127168.3.579.2.1258 1993 Unknown [id number] 2.16.84 0.1.596495.3.579.2.9 1993 Unknown [id number] 2.16.84 0.1.502036.3.579.2.1258 1993 Unknown [id number] 2.16.84 0.1.286262.3.579.2.9 1993 Unknown [id number] 2.16.840. 1.379277.3.579.2.9 1959 Unknown [id number] Self-pay Self Pay [id number] Social History Date Type Detail Facility Tobacco smoking stat [facility] Unknown if ever smoked [facility] Phone: Start: 1995 Sex Assigned At Not on file [facility] Phone: Start: 1995 Sex Assigned At Female [facility] Clinical Note 08-23-2022 Note Date & Type Note Facility 08-23-2022 Note OPERATIVE NOTE OPERATION DATE: 08/23/2022 PROCEDURE: LEEP Procedure. PREOPERATIVE DIAGNOSIS: Cervical dysplasia. POSTOPERATIVE DIAGNOSIS: Cervical dysplasia. ANESTHESIA: General. SURGEON: Angie Vivar D.O. [employer] DEVELOPER: None. BLOOD LOSS: 5 mL. SPECIMEN: Ectocervical [...] to Recovery Room in stable condition. [facility] Medication management note 06-11-2022 Note Date & Type Note Facility 06-11-2022 Note Entered by Diane Wadsworth on June 11, 2022 09:44:53 EST From: Diane Wadsworth To: [facility] #[id number] Sent: 06/11/2022 09:44:53 EST Subject: Medication Management Submitted: Complete:desogestrel-ethinyl estradiol (Velivet oral tablet) Signed by Diane Wadsworth 06/11/2022 09:44:00 EST Approved desogestrel-ethinyl estradiol (VELIVET 28 DAY TABLET) take 1 tablet by mouth once daily Qty: 84 tab(s) Days Supply: 84 Refills: 0 Substitutions Allowed Route To Pharmacy - [facility] #[id number] Signed by Diane Wadsworth Patient matched by Diane Wadsworth on 06/11/2022 09:41:06 EST From: [facility][id number] To: Bhavya Estrada MD Sent: June 11, 2022 8:39:02 AM SELLING UNDERWRITER Subject: Medication Management Due: June 12, 2022 12:05:33 AM SELLING UNDERWRITER On Hold Pending Signature Drug: desogestrel-ethinyl estradiol (Velivet oral tablet), take 1 tablet by mouth once daily Quantity: 84 tab(s) Days Supply: 84 Refills: 1 Substitutions Allowed Notes from Pharmacy: Dispensed Drug: desogestrel-ethinyl estradiol (Velivet oral tablet), take 1 tablet by mouth once daily Quantity: 84 tab(s) Days Supply: 84 Refills: 0 Substitutions Allowed Notes from Pharmacy: [facility] Evaluation note Note Date & Type Note Facility Evaluation note No assessment information availa [facility] Work Phone: Summary Purpose Family History [...] section and content) DATE CREATED AUTHOR 12/02/2020 [facility] DATE CREATED AUTHOR AUTHOR'S ORGANIZ ATION 12/23/2021 [facility] DATE CREATED AUTHOR AUTHOR'S ORGANIZ ATION 06/11/2022 [place] DATE CREATED AUTHOR AUTHOR'S ORGANIZ ATION 09/05/2022 [facility] DATE CREATED AUTHOR AUTHOR'S ORGANIZ ATION 03/05/2024 [facility] EP[employer] Care Teams (unrecognized sec tion [...] BE BASED ON THE PRIMARY CLINICAL RECORDS. [employer] provides no warranty or guarantee of the accuracy or completeness of information in this document.
== END 2024-03-17 19:25 | disposition home or self-care (01) ==
LOC: LAB 19:24
PROVIDERS: Visit Provider Obstetrics & Gynecology
DX: Z34.93 Encounter for supervision of normal pregnancy, unspecified, third trimester (principal)
CPT/HCPCS: 87081; 87150

== ENCOUNTER 2024-03-20 08:03 | Outpatient (OUT) | payer BC, SELFPAY ==
[2024-03-20 08:20] VITALS: BP 142/82; PULSE 82
== END 2024-03-20 08:49 | disposition home or self-care (01) ==
LOC: FBCO 08:03 → FBC 08:04
PROVIDERS: Visit Provider Obstetrics & Gynecology
DX: O99.283 Endocrine, nutritional and metabolic diseases complicating pregnancy, third trimester (principal)
CPT/HCPCS: 59025

== ENCOUNTER 2024-03-24 07:05 | Outpatient (OUT) | payer BC, SELFPAY ==
--- OUTSIDE RECORDS SUMMARY | 2024-03-24 07:08 | XMS_ITS | CCD ---
Author Organization [facility] Care Team Providers Care Beer Maker Name Role Phone Unavailable Primary Care Provider [...] JEFFRY, ANGIE Attending Unavailable JEFFRYANGIE Attending Unavailable JEFFRYANGIE Attending Unavailable JEFFRYANGIE Attending Unavailable VANESA ROSAS Attending Unavailable JEFFRY, ANGIE Attending Unavailable VANESA ROSAS Attending Unavailable JEFFRYANGIE Attending Unavailable JEFFRY, ANGIE Attending Unavailable Allergies Allergy Classification Reported Allergen(s) Allergy Type Date of Onset Reaction(s) Facility (2 sources) Amoxicillin; Translations: [amoxicillin] Drug Allergy [facility] Repository (1 source) tiZANidine; Translations: [tiZANidine] Drug Allergy [facility] Repository Problems Problem Classification Problem Date [...] 08-23-2022 BASO # 0.1 103/ul Normal 0.0-0.1 [facility] Comment on above: Performed By: #### C BC #### [facility] [address] [place] [address] Dr. Car Lozada Basophils/100 WBC (Bld) 0.5 % Normal 0.2-2.0 [facility] Comment on above: Performed By: #### C BC #### [facility] [address] [place] [address] Dr. Car Lozada EO # 0.6 103/ul Normal 0.0-0.7 [facility] Comment on above: Performed By: #### C BC #### [facility] [address] [place] [address] Dr. Car Lozada Eosinophils/100 WBC (Bld) 5.9 % Normal 0.9-7.0 [facility] Comment on above: Performed By: #### C BC #### [facility] [address] [address] [address] Car Lozada Erythrocyte distribution width (RBC) [Ratio] 12.6 % Normal 11.0-15.0 [facility] Comment on above: Performed By: #### C BC #### [facility] [address] [place] [address] Dr. Car Lozada Hematocrit (Bld) [Volume fraction] 42.0 % Normal 36.0-48.0 [facility] Comment on above: Performed By: #### C BC #### [facility] [address] [place] [address] Dr. Car Lozada Hemoglobin (Bld) [Mass/Vol] 14.1 g/dL Normal 12.0-16.0 [facility] Comment on above: Performed By: #### C BC #### [facility] [address] [place] [address] Dr. Car Lozada IG # 0.04 10e3/ul Critically high 0.00-0.03 [facility] Comment on above: Performed By: #### C BC #### [facility] [address] [place] [address] Dr. Car Lozada IG % 0.4 % Normal 0.0-0.5 [facility] Comment on above: Performed By: #### C BC #### [facility] [address] [place] [address] Dr. Car Lozada LYMPH # 3.6 103/ul Normal 1.2-3.8 [facility] Comment on above: Performed By: #### C BC #### [facility] [address] [place] [address] Dr. Car Lozada Lymphocytes/100 WBC (Bld) 34.7 % Normal 20.5-60.0 [facility] Comment on above: Performed By: #### C BC #### [facility] [address] [place] [address] Dr. Car Lozada MANUAL DIFF REQ NO Normal [facility] Comment on above: Performed By: #### C BC #### [facility] [address] [place] [address] Dr. Car Lozada MCH (RBC) [Entitic mass] 31.2 pg Normal 26.7-34.0 [facility] Comment on above: Performed By: #### C BC #### [facility] [address] [place] [address] Dr. Car Lozada MCHC (RBC) [Mass/Vol] 33.6 g/dL Normal 29.9-35.2 [facility] Comment on above: Performed By: #### C BC #### [facility] [address] [address] [address] Car Lozada MCV (RBC) [Entitic vol] 92.9 fL Normal 81.0-99.0 [facility] Comment on above: Performed By: #### C BC #### [facility] [address] [address] [address] Car Lozada MONO # 0.9 103/ul Critically high 0.3-0.8 [facility] Comment on above: Performed By: #### C BC #### [facility] [address] [address] [address] Car Lozada Monocytes/100 WBC (Bld) 8.3 % Normal 1.7-12.0 [facility] Comment on above: Performed By: #### C BC #### [facility] [address] [place] [address] Dr. Car Lozada NEUT # 5.2 103/ul Normal 1.4-6.5 [facility] Comment on above: Performed By: #### C BC #### [facility] [address] [place] [address] Dr. Car Lozada Neutrophils/100 WBC (Bld) 50.2 % Normal 43.0-75.0 [facility] Comment on above: Performed By: #### C BC #### [facility] [address] [place] [address] Dr. Car Lozada Platelet mean volume (Bld) [Entitic vol] 10.0 fL Normal 9.5-13.5 [facility] Comment on above: Performed By: #### C BC #### [facility] [address] [place] [address] Dr. Car Lozada PLT 251 103/ul Normal 150-450 [facility] Comment on above: Performed By: #### C BC #### [facility] [address] [place] [address] Dr. Car Lozada RBC 4.52 106/ul Normal 4.20-5.40 [facility] Comment on above: Performed By: #### C BC #### [facility] [address] [place] [address] Dr. Car Lozada WBC 10.3 103/ul Normal 4.0-11.0 [facility] Comment on above: Performed By: #### C BC #### [facility] [address] [address] [address] Car Lozada PREG QUANT HCGon 08-23-2022 HCG QUANT <1 Normal [facility] Comment on above: Performed By: #### P REGQNT #### [facility] [address] [address] [address] Car Lozada HCG RANGE SEE BELOW Normal [facility] Comment on above: Result Comment: 5-50 0.2-1 WEEK 50-500 1-2 WEEKS 100-5,000 2-3 WEEKS 500-10,000 3-4 WEEKS 1,000-50,000 4-5 WEEKS 10,000-100,000 5-6 WEEKS 15,000-200,000 6-8 WEEKS 10,000-100,000 2-3 MONTHS Performed By: #### P REGQNT #### [facility] [address] [place] [address] Dr. Car Lozada XR CHEST 2 Von [...] JOSÉ MIGUEL LIMON Date: 2022-08-16 10:17 Normal [facility] PAP ACOG PANEL 2: 21 to 29on 06-25-2022 . . Normal [facility] Comment on above: Performed By: #### [id number] #### [facility] [address] [place] [address] Dr. Car Lozada Age Gdln ACOG Testing 21-29 Normal [facility] Comment on above: Performed By: #### [id number] #### [facility] [address] [address] [address] Car Lozada DIAGNOSIS: Comment Abnormal [facility] Comment on above: Result Comment: EPIT HELIAL CELL ABNORMALITY. LOW GRADE SQUAMOUS INTRAEPITHELIAL LESION (LSIL). Performed By: #### [id number] #### [facility] [address] [address] [address] Car Lozada Electronically signed by: Comment Normal [facility] Comment on above: Result Comment: Phyllis Vital MD, Pathologist Performed By: #### [id number] #### [facility] [address] [address] [address] Car Lozada Methodology: Comment Normal [facility] Comment on above: Result Comment: This liquid based ThinPrep(R) pap test was screened with the use of an image guided system. Performed By: #### [id number] #### [facility] [address] [place] [address] Dr. Car Lozada Note: Comment Normal [facility] Comment on above: Result Comment: The Pap smear is a screening test designed to aid in the detection of premalignant and malignant conditions of the uterine cervix. It is not a diagnostic procedure and should not be used as the sole means of detecting cervical cancer. Both false-positive and false-negative reports do occur. . Performed By: #### [id number] #### [facility] [address] [place] [address] Dr. Car Lozada Pathologist Provided ICD10 Comment Normal [facility] Comment on above: Result Comment: [id number] Performed By: #### [id number] #### [facility] [address] [place] [address] Dr. Car Lozada Performed by: Comment Normal [facility] Comment on above: Result Comment: Sidney Masters, Merchandising Specialist (ASCP) Performed By: #### [id number] #### [facility] [address] [place] [address] Dr. Car Lozada Recommendation: Comment Abnormal [facility] Comment on above: Result Comment: Sugg est follow up as clinically appropriate. Performed By: #### 4 [id number] #### [facility] [address] [address] [address] Car Lozada Reflex Criteria: Comment Normal [facility] Comment on above: Result Comment: The HPV DNA reflex criteria were not met with this specimen result therefore, no HPV testing was performed. . Performed By: #### 4 [id number] #### [facility] [address] [address] [address] Car Lozada Specimen adequacy: Comment Normal [facility] Comment on above: Result Comment: Sati sfactory for evaluation. Endocervical and/or squamous metaplastic cells (endocervical component) are present. Performed By: #### 4 [id number] #### [facility] [address] [address] [address] Car Lozada Body fluid albumin measureme nt (mass/volume)Ordered By: Dom Paulino on 12-22-2021 Albumin (Body fld) [Mass/Vol] 3.4 g/dL 3.2-5.5 [facility] Cholesterol [Mass/volume] in Serum or PlasmaOrdered By: Dom Paulino on 12-22-2021 Cholesterol [Mass/Vol] 228 mg/dL 140-200 [facility] Comment on above: Chol less than 200 m g/dl low risk Chol 201-239 mg/dl borderline risk Chol 240 mg/dl and greater high risk Cholesterol in LDL Calc [Mas s/Vol]Ordered By: Dom Paulino on 12-22-2021 Cholesterol in LDL [Mass/Vol] 136 mg/dL 0-100 [facility] Comment on above: LDL ATP III CLASSIFI CATION LDL less than 100 mg/dL Optimal LDL 100-129 mg/dL Near or above optimal LDL 130-159 mg/dL Borderline high LDL 160-189 mg/dL High LDL greater than 189 mg/dL Very high Cholesterol in VLDL Calc [Ma ss/Vol]Ordered By: Dom Paulino on 12-22-2021 Cholesterol in VLDL [Mass/Vol] 19 mg/dL [facility] Comprehensive Metabolic Empo n 12-22-2021 Albumin [Mass/Vol] 3.4 g/dL Normal 3.2-5.5 [facility] Comment on above: Performed By: #### E BS CMP, EBS LIPID #### [facility] [address] [id number] [place] Albumin/Globulin [Mass ratio] 1.2 {ratio} Normal [facility] Comment on above: Performed By: #### E BS CMP, EBS LIPID #### [facility] [address] ALP [Catalytic activity/Vol] 48 U/L Normal 32-92 [facility] Comment on above: Performed By: #### E BS CMP, EBS LIPID #### [facility] [address] ALT [Catalytic activity/Vol] 14 U/L Normal 10-60 [facility] Comment on above: Performed By: #### E BS CMP, EBS LIPID #### [facility] [address] [place] [address] AST [Catalytic activity/Vol] 15 U/L Normal 10-42 [facility] Comment on above: Performed By: #### E BS CMP, EBS LIPID #### [facility] [address] [place] [address] Bilirubin [Mass/Vol] 0.3 mg/dL Normal 0.3-1.2 [facility] Comment on above: Performed By: #### E BS CMP, EBS LIPID #### [facility] [address] [place] [address] Calcium [Mass/Vol] 9.3 mg/dL Normal 8.2-10.2 [facility] Comment on above: Performed By: #### E BS CMP, EBS LIPID #### [facility] [address] [place] [address] [place] Chloride [Moles/Vol] 101 mmol/L Normal 95-114 [facility] Comment on above: Performed By: #### E BS CMP, EBS LIPID #### [facility] [address] [place] [address] [place] CO2 [Moles/Vol] 23.8 mmol/L Normal 22.0-30.0 [facility] Comment on above: Performed By: #### E BS CMP, EBS LIPID #### [facility] [address] Creatinine [Mass/Vol] 0.79 mg/dL Normal 0.44-1.03 [facility] Comment on above: Performed By: #### E BS CMP, EBS LIPID #### [facility] [address] [place] [address] [place] Estimated GFR ( Aleena > [address] [facility] Comment on above: Result Comment: GFR estimated reference range: According to KDOQI guidelines, <60 ml/min/1.73m2 is sufficient to diagnose a patient with chronic kidney disease. Performed By: #### E BS CMP, EBS LIPID #### [address] Estimated GFR (Non- Am > [address] [facility] Comment on above: Performed By: #### E BS CMP, EBS LIPID #### [address] Globulin (S) [Mass/Vol] 2.8 g/dL Normal [facility] Comment on above: Performed By: #### E BS CMP, EBS LIPID #### [place] [address] [place] Glucose [Mass/Vol] 76 mg/dL Normal 70-100 [facility] Comment on above: Performed By: #### E BS CMP, EBS LIPID #### [address] Potassium [Moles/Vol] 3.8 mmol/L Normal 3.5-5.1 [facility] Comment on above: Performed By: #### E BS CMP, EBS LIPID #### [place] [address] [place] Protein [Mass/Vol] 6.2 g/dL Normal 6.1-7.9 [facility] Comment on above: Performed By: #### E BS CMP, EBS LIPID #### [place] [address] [place] Sodium [Moles/Vol] 136 mmol/L Normal 136-146 [facility] Comment on above: Performed By: #### E BS CMP, EBS LIPID #### [facility] [address] [id number] [place] Urea nitrogen [Mass/Vol] 10 mg/dL Normal 9-23 [facility] Comment on above: Performed By: #### E BS CMP, EBS LIPID #### [facility] [address] [place] [address] [place] Creatinine and Glomerular fi ltration rate.predicted panel (S/P/Bld)Ordered By: Dom Paulino on 12-22-2021 Creatinine [Mass/Vol] 0.79 mg/dL 0.44-1.03 [facility] Estimated glomerular filtrat ion rate (GFR) non- AmericanOrdered By: Dom Paulino on 12-22-2021 GFR/1.73 sq M.predicted among non-blacks MDRD (S/P/Bld) [Vol rate/Area] > 60 mL/Min [facility] Globulin Calc (S) [Mass/Vol] Ordered By: Dom Paulino on 12-22-2021 Globulin (S) [Mass/Vol] 2.8 g/dL [facility] - Chemistry and C hemistry - challengeOrdered By: Dom Paulino on 12-22-2021 Glucose [Mass/Vol] 76 mg/dL 70-100 [facility] Lipid Profileon 12-22-2021 Cholesterol [Mass/Vol] 228 mg/dL High 140-200 [facility] Comment on above: Result Comment: Chol less than 200 mg/dl low risk Chol 201-239 mg/dl borderline risk Chol 240 mg/dl and greater high risk Performed By: #### E BS CMP, EBS LIPID #### [facility] [address] [place] [address] [place] Cholesterol in HDL [Mass/Vol] 73 mg/dL Normal 35-85 [facility] Comment on above: Result Comment: HDL CHOL ATP-III CLASSIFICATION Cardiovascular Risk HDL > or equal to 60 mg/dL LOW HDL < 40 mg/dL HIGH Performed By: #### E BS CMP, EBS LIPID #### [facility] [address] [place] [address] [place] Cholesterol.total/Janey sterol in HDL [Mass ratio] 3.1 {ratio} Normal <5.0 [facility] Comment on above: Result Comment: PERF ORMED BY: [place] [address] PATHOLOGIST CATTLE DRIVER DENYS WOO M.D. Performed By: #### E BS CMP, EBS LIPID #### [facility] [address] LDL Cholesterol,Calculated 136 mg/dL High 0-100 [facility] Comment on above: Result Comment: LDL ATP III CLASSIFICATION LDL less than 100 mg/dL Optimal LDL 100-129 mg/dL Near or above optimal LDL 130-159 mg/dL Borderline high LDL 160-189 mg/dL High LDL greater than 189 mg/dL Very high Performed By: #### E BS CMP, EBS LIPID #### [address] Triglyceride w/Reflex 95 mg/dL Normal 35-149 [facility] Comment on above: Result Comment: TRIG ATP III CLASSIFICATION TRIG less than 150 mg/dL Normal TRIG 150-199 mg/dL Borderline high TRIG 200-500 mg/dL High TRIG greater than 500 mg/dL Very high Standard traceable to the Center for Disease Conrtrol and Prevention (CDC) test method. Performed By: #### E BS CMP, EBS LIPID #### [facility] [address] [place] [address] VLDL CHOLESTEROL 19 mg/dL Normal [facility] Comment on above: Performed By: #### E BS CMP, EBS LIPID #### [facility] [address] [place] [address] No Panel InformationOrdered By: Dom Paulino on 12-22-2021 Estimated GFR () > 60 mL/Min [facility] Comment on above: GFR estimated refere nce range: According to KDOQI guidelines, <60 ml/min/1.73m2 is sufficient to diagnose a patient with chronic kidney disease. Pharmacy Creatinine Clearance (Chem N/A [facility] Triglycerides Reflex 95 mg/dL 35-149 [facility] Comment on above: TRIG ATP III CLASSIF ICATION TRIG less than 150 mg/dL Normal TRIG 150-199 mg/dL Borderline high TRIG 200-500 mg/dL High TRIG greater than 500 mg/dL Very high Standard traceable to the Center for Disease Conrtrol and Prevention (CDC) test method. Protein [Mass/volume] in Ser um or PlasmaOrdered By: Dom Paulino on 12-22-2021 Protein [Mass/Vol] 6.2 g/dL 6.1-7.9 [facility] Serum or plasma alanine pan otransferase measurement without P-5'-P (enzymatic activiOrdered By: Dom Paulino on 12-22-2021 ALT No additional P-5'-P [Catalytic activity/Vol] 14 U/L 10-60 [facility] Serum or plasma albumin/glob ulin mass ratioOrdered By: Dom Paulino on 12-22-2021 Albumin/Globulin [Mass ratio] 1.2 {ratio} [facility] Serum or plasma alkaline nina sphatase measurement (enzymatic activity/volume)Ordered By: Dom Paulino on 12-22-2021 ALP [Catalytic activity/Vol] 48 U/L 32-92 [facility] Serum or plasma aspartate am inotransferase measurement (enzymatic activity/volume)Ordered By: Dom Paulino on 12-22-2021 AST [Catalytic activity/Vol] 15 U/L 10-42 [facility] Serum or plasma calcium dexter urement (mass/volume)Ordered By: Dom Paulino on 12-22-2021 Calcium [Mass/Vol] 9.3 mg/dL 8.2-10.2 [facility] Serum or plasma chloride glenis surement (moles/volume)Ordered By: Dom Paulino on 12-22-2021 Chloride [Moles/Vol] 101 mmol/L 95-114 [facility] Serum or plasma high density lipoprotein (HDL) cholesterol measurementOrdered By: Dom Paulino on 12-22-2021 Cholesterol in HDL [Mass/Vol] 73 mg/dL 35-85 [facility] Comment on above: HDL CHOL ATP-III CLA SSIFICATION Cardiovascular Risk HDL > or equal to 60 mg/dL LOW HDL < 40 mg/dL HIGH Serum or plasma potassium me asurement (moles/volume)Ordered By: Dom Paulino on 12-22-2021 Potassium [Moles/Vol] 3.8 mmol/L 3.5-5.1 [facility] Serum or plasma sodium measu rement (moles/volume)Ordered By: Dom Paulino on 12-22-2021 Sodium [Moles/Vol] 136 mmol/L 136-146 [facility] Serum or plasma total biliru bin measurement (mass/volume)Ordered By: Dom Paulino on 12-22-2021 Bilirubin [Mass/Vol] 0.3 mg/dL 0.3-1.2 [facility] Serum or plasma total carbon dioxide measurement (moles/volume)Ordered By: Dom Paulino on 12-22-2021 CO2 [Moles/Vol] 23.8 mmol/L 22.0-30.0 [facility] Serum or plasma total choles terol/high density lipoprotein (HDL) cholesterol mass ratOrdered By: Dom Paulino on 12-22-2021 Cholesterol.total/Janey sterol in HDL [Mass ratio] 3.1 {ratio} [facility] Serum or plasma urea nitroge n measurement (mass/volume)Ordered By: Dom Paulino on 12-22-2021 Urea nitrogen [Mass/Vol] 10 mg/dL 9-23 [facility] Outside Recordson 09-13-2021 Outside Records [id number]# 1.00[facility] Outside Recordson 08-28-2021 Outside Records [id number] [facility] [id number] #1.00[facility] Consent Formson 07-14-2021 Consent Forms [id number] [address] Progress Note - Nurseon Progress Note - Nurse Antigen test ordered, test resulted positive, patient informed of positive result. In house test ordered, patient informed and swabbed, specimen sent to lab. [Electronically Signed on: 07/11/2021 16:04 EST] Kamini Tovar RN [Verified on: 07/11/2021 16:04 EST] Kamini Tovar RN [facility] Progress Note - Nurse Antigen test ordered, test resulted negative, patient informed of negative result. [Electronically Signed on: 07/11/2021 11:45 EST] Kamini Tovar RN [Verified on: 07/11/2021 11:45 EST] Kamini Tovar RN [facility] Measles (Rubeola) Imon 11-28 Measles (Rubeola) Im 3.49 Normal >1.09 [facility] Comment on above: Result Comment: Interpretation: IMMUNE Reference Range: <0.91 Not Immune 0.91-1.09 Equivocal >1.09 Immune Performed By: #### M EI, JUDY, VZI, TSPOT, MEÑO #### [id number] In Store Marketing Representative: Maury Watts MD Mumps,Immun,Abon 11-28-2020 Mumps,Immun,Ab 1.48 Normal >1.09 [facility] Comment on above: Result Comment: Interpretation: IMMUNE Reference Range: <0.91 Not Immune 0.91-1.09 Equivocal >1.09 Immune Performed By: #### M EI, JUDY, VZI, TSPOT, MEÑO #### [id number] In Store Marketing Representative: Maury Watts MD T-Spoton 11-28-2020 T-Spot. TB Test Normal [facility] Comment on above: Result Comment: [facility] [employer] [address] [address] (NOTE) T-SPOT.TB Test Results --------- T-SPOT TB [...] M EI, JUDY, VZI, TSPOT, MEÑO #### [email or web address] [place] [id number] In Store Marketing Representative: Maury Watts MD VZ Immunityon 11-28-2020 VZ Immunity 2.04 Normal >1.09 [facility] Comment on above: Result Comment: Interpretation: IMMUNE Reference Range: <0.91 Not Immune 0.91-1.09 Equivocal >1.09 Immune Performed By: #### M EI, JUDY, VZI, TSPOT, MEÑO #### [email or web address] [place], [place] [id number] In Store Marketing Representative: Maury Watts MD Rubella Ab, IgGon 11-25-2020 Rubella Ab, IgG 150.4 IU/mL Normal [facility] Comment on above: Result Comment: REFERENCE RANGE: <5.0 NON-REACTIVE (non-immune) 5.0 TO 9.9 EQUIVOCAL >=10.0 REACTIVE (immune) Performed By: #### M EI, JUDY, VZI, TSPOT, MEÑO #### [address] [place] [address] In Store Marketing Representative: Maury Watts MD Rubella antibody, IgGOrdered By: Morales Gardner on 11-25-2020 Rubella virus IgG Ql (S) 150.4 IU/mL [employer] Phone: Comment on above: REFERENCE RANGE: <5.0 NON-REACTIVE (non-immune) 5.0 TO 9.9 EQUIVOCAL >=10.0 REACTIVE (immune) [employer] Phone: Encounters Encounter Date Encounter Type Care Provider Facility Start: 03-17-2024 End: 03-17-2024 ambulatory ANGIE JEFFRY Not Available Start: 03-03-2024 End: 03-03-2024 ambulatory VANESA ROSAS [...] Available Start: 08-23-2022 End: 08-23-[address] NAGIE VIVAR . Facility: Start: 08-20-2022 Encounter for preprocedural respiratory examination DR ANGIE VIVAR . [facility] Start: 08-16-2022 End: 08-17-[address] ANGIE VIVAR . Facility:[facility] Start: 08-16-2022 End: 08-17-2022 Encounter for preprocedural respiratory examination DR ANGIE VIVAR . Facility:[facility] Start: 06-13-2022 End: 06-13-[address] ANGIE VIVAR . Facility: Start: 04-26-2022 End: 04-27-2022 ambulatory [facility] Facility:[facility] Start: 12-22-2021 End: 12-22-2021 Departed Referred [facility] [address] Start: 07-13-2021 End: 07-13-2021 ambulatory [facility] Facility:[facility] Start: 07-12-2021 End: 07-12-2021 ambulatory [facility] Facility:[facility] Start: 11-25-2020 End: 11-26-2020 ambulatory MORALES GARDNER [facility] Start: 11-25-2020 End: 11-25-2020 Subsequent hospital visit by physician [facility] Procedures Date Procedure Procedure Detail Performing Clinician Start: 11-25-2020 Antibody rubella Omkar Gardner MD Work Phone: Plan of Treatment Date Care Activity Detail Author Start: 03-08-2021 Influenza vaccination Flu vacc ine (Season Ended) [employer] Phone: Start: 2005 COVID-19 Vaccine (1) COVID-19 Vaccin e (1) [employer] Phone: End: 11-25-2020 Mumps Antibody, IgG Mumps Antibody, IgG Lab Routine Once for 1 Occurrences starting 11/25/2020 until 11/25/2020 [employer] Phone: Comment on above: Once for 1 Occurrenc es starting 11/25/2020 until 11/25/2020 Mumps Antibody, IgG Mumps Antibo dy, IgG Lab Routine 11/25/2020 3:18 PM EDT [employer] Phone: End: 11-25-2020 Rubeola Antibody, IgG Rubeola Antibody, IgG Lab Routine Once for 1 Occurrences starting 11/25/2020 until 11/25/2020 [employer] Phone: Comment on above: Once for 1 Occurrenc es starting 11/25/2020 until 11/25/2020 Rubeola Antibody, IgG Rubeola An tibody, IgG Lab Routine 11/25/2020 3:18 PM EDT [employer] Phone: End: 11-25-2020 Tb antigen response gamma interferon t-cell susp T-Spot TB Test Lab Routine Once for 1 Occurrences starting 11/25/2020 until 11/25/2020 [employer] Phone: Comment on above: Once for 1 Occurrenc es starting 11/25/2020 until 11/25/2020 Tb antigen response gamma interferon t-cell susp T-Spot TB Test Lab Routine 11/25/2020 3:18 PM EDT [employer] Phone: End: 11-25-2020 Varicella Zoster Antibody, IgG Varicella Zoster Antibody, IgG Lab Routine Once for 1 Occurrences starting 11/25/2020 until 11/25/2020 [employer] Phone: Comment on above: Once for 1 Occurrenc es starting 11/25/2020 until 11/25/2020 Varicella Zoster Antibody, IgG Varicella Zoster Antibody, IgG Lab Routine 11/25/2020 3:18 PM EDT [employer] Phone: Payers Date Payer Category Payer Unknown [id number] 2020 Unknown [id number] 1995 Unknown [id number] 2.16.84 0.1.183337.3.579.2.718 1993 Unknown [id number] 2.16.84 0.1.306584.3.579.2.593 1993 Unknown [id number] 2.16.84 0.1.994549.3.579.2.593 1993 Unknown [id number] 2.16.84 0.1.807428.3.579.2.593 1993 Unknown [id number] 2.16.84 0.1.667658.3.579.2.9 1993 Unknown [id number] 2.16.84 0.1.516516.3.579.2.9 1993 Unknown [id number] 2.16.84 0.1.202116.3.579.2.9 1993 Unknown [id number] 2.16.84 0.1.816685.3.579.2.9 1993 Unknown [id number] 2.16.84 0.1.060094.3.579.2.1258 1993 Unknown [id number] 2.16.84 0.1.883748.3.579.2.9 1993 Unknown [id number] 2.16.84 0.1.947248.3.579.2.9 1993 Unknown [id number] 2.16.84 0.1.061157.3.579.2.9 1993 Unknown [id number] 2.16.84 0.1.746215.3.579.2.9 1993 Unknown [id number] 2.16.84 0.1.423466.3.579.2.9 1993 Unknown [id number] 2.16.840. 1.204713.3.579.2.1259 1959 Unknown [id number] Self-pay Self Pay [id number] Social History Date Type Detail Facility Tobacco smoking stat [facility] Unknown if ever smoked [employer] Phone: Start: 1995 Sex Assigned At Not on file [facility] [employer] Phone: Start: 1995 Sex Assigned At Female F [facility] Clinical Note 02-16-2023 Note Date & Type Note Facility 08-23-2022 Note OPERATIVE NOTE OPERATION DATE: 08/23/2022 PROCEDURE: LEEP Procedure. PREOPERATIVE DIAGNOSIS: Cervical dysplasia. POSTOPERATIVE DIAGNOSIS: Cervical dysplasia. ANESTHESIA: General. SURGEON: Angie Vivar D.O. SECURITY THREAT ANALYST: None. BLOOD LOSS: 5 mL. SPECIMEN: Ectocervical [...] EST From: Diane Wadsworth To: LYNSEY GALLAGHER #[id number] Sent: 06/11/2022 09:44:53 EST Subject: Medication Management Submitted: Complete:desogestrel-ethinyl estradiol (Velivet oral tablet) Signed by Diane Wadsworth 06/11/2022 09:44:00 EST Approved desogestrel-ethinyl estradiol (VELIVET 28 DAY TABLET) take 1 tablet by mouth once daily Qty: 84 tab(s) Days Supply: 84 Refills: 0 Substitutions Allowed Route To Pharmacy - [facility] #[id number] Signed by Diane Wadsworth Patient matched by Diane Wadsworth on 06/11/2022 09:41:06 EST From: [facility] #[id number] To: Bhavya Estrada MD Sent: June 11, 2022 8:39:02 AM [employer]ATIONAL [employer]IST Subject: Medication Management Due: June 12, 2022 12:05:33 AM 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 Pending Signature Drug: desogestrel-ethinyl estradiol (Velivet oral tablet), take 1 tablet by mouth once daily Quantity: 84 tab(s) Days Supply: 84 Refills: 1 Substitutions Allowed Notes from Pharmacy: Dispensed Drug: desogestrel-ethinyl estradiol (Velivet oral tablet), take 1 tablet by mouth once daily Quantity: 84 tab(s) Days Supply: 84 Refills: 0 Substitutions Allowed Notes from Pharmacy: [facility] Evaluation note Note Date & Type Note Facility Evaluation note No assessment information availa [facility] Work Phone: Summary Purpose Family History [...] section and content) DATE CREATED AUTHOR 12/02/2020 [facility] DATE CREATED AUTHOR AUTHOR'S ORGANIZ ATION 12/23/2021 [facility] DATE CREATED AUTHOR AUTHOR'S ORGANIZ ATION 06/11/2022 [facility] DATE CREATED AUTHOR AUTHOR'S ORGANIZ ATION 09/05/2022 [facility] DATE CREATED AUTHOR AUTHOR'S ORGANIZ ATION 03/19/2024 [facility] [employer] Care Teams (unrecognized [...] BE BASED ON THE PRIMARY CLINICAL RECORDS. [employer] provides no warranty or guarantee of the accuracy or completeness of information in this document.
--- NOTE | 2024-03-24 15:01 | US_ITS ---
[address] [address] Patient Name: MARISA ADAN MRN: [id number] date: 1995 Sex: F Assigned Patient Location: [facility] Current Patient Location: [facility] Accession/Order Number: [id number] Exam Date: 03/24/2024 15:02 Report Date: 03/24/2024 16:02 At the request of: ANGIE TERAN Procedure: US OB BPP w non-stress EXAMINATION: US OB BPP w non-stress HISTORY: Gestational diabetes mellitus O24.419 COMPARISON: 03/13/2024 TECHNIQUE: Ultrasound biophysical profile was performed in the radiology department. non-reactive stress testing was performed by nursing staff in the birthing center. FINDINGS: BREATHING MOVEMENTS: 0 GROSS BODY MOVEMENTS: 2 TONE: 2 QUALITATIVE AMNIOTIC FLUID VOLUME: 2 PRESENTATION: CEPHALIC HEART RATE: 120.54 bpm AMNIOTIC FLUID VOLUME: 11.9 cm GESTATIONAL AGE: 37 weeks 3 days US/US OB BPP w non-stress IMPRESSION: Total biophysical profile score: 6 Electronically authenticated by: OMID DOSS Date: 03/24/2024 16:02
[2024-03-24 15:44] VITALS: BP 137/87; PULSE 82
== END 2024-03-24 16:10 | disposition home or self-care (01) ==
LOC: US 07:05 → FBC 14:57
PROVIDERS: Visit Provider Obstetrics & Gynecology
DX: O24.419 Gestational diabetes mellitus in pregnancy, unspecified control (principal); Z3A.37 37 weeks gestation of pregnancy
CPT/HCPCS: 76818

== ENCOUNTER 2024-03-25 16:04 | Inpatient (IN) | payer BC, SELFPAY ==
[2024-03-25] VITALS (19 sets, daily range): BP systolic 112–157; BP diastolic 56–102; PULSE 77–103
--- OUTSIDE RECORDS SUMMARY | 2024-03-25 16:11 | XMS_ITS | CCD ---
Author Organization [facility] Care Team Providers Care Biztalk Developer Name Role Phone Unavailable Primary Care Provider [...] Translations: [amoxicillin] Drug Allergy [facility] Repository (1 source) tiZANidine; Translations: [tiZANidine] Drug Allergy [facility] Repository Problems Problem Classification Problem [...] 08-23-2022 BASO # 0.1 103/ul Normal 0.0-0.1 [facility] Comment on above: Performed By: #### C BC #### [facility] [address] [place] [address] Dr. Car Lozada Basophils/100 WBC (Bld) 0.5 % Normal 0.2-2.0 [facility] Comment on above: Performed By: #### C BC #### [facility] [address] [place] [address] Dr. Car Lozada EO # 0.6 103/ul Normal 0.0-0.7 [facility] Comment on above: Performed By: #### C BC #### [facility] [address] [place] [address] Dr. Car Lozada Eosinophils/100 WBC (Bld) 5.9 % Normal 0.9-7.0 [facility] Comment on above: Performed By: #### C BC #### [facility] [address] [address] [address] Car Lozada Erythrocyte distribution width (RBC) [Ratio] 12.6 % Normal 11.0-15.0 [facility] Comment on above: Performed By: #### C BC #### [facility] [address] [place] [address] Dr. Car Lozada Hematocrit (Bld) [Volume fraction] 42.0 % Normal 36.0-48.0 [facility] Comment on above: Performed By: #### C BC #### [facility] [address] [place] [address] Dr. Car Lozada Hemoglobin (Bld) [Mass/Vol] 14.1 g/dL Normal 12.0-16.0 [facility] Comment on above: Performed By: #### C BC #### [facility] [address] [place] [address] Dr. Car Lozada IG # 0.04 10e3/ul Critically high 0.00-0.03 [facility] Comment on above: Performed By: #### C BC #### [facility] [address] [place] [address] Dr. Car Lozada IG % 0.4 % Normal 0.0-0.5 [facility] Comment on above: Performed By: #### C BC #### [facility] [address] [place] [address] Dr. Car Lozada LYMPH # 3.6 103/ul Normal 1.2-3.8 [facility] Comment on above: Performed By: #### C BC #### [facility] [address] [place] [address] Dr. Car Lozada Lymphocytes/100 WBC (Bld) 34.7 % Normal 20.5-60.0 [facility] Comment on above: Performed By: #### C BC #### [facility] [address] [place] [address] Dr. Car Lozada MANUAL DIFF REQ NO Normal [facility] Comment on above: Performed By: #### C BC #### [facility] [address] [place] [address] Dr. Car Lozada MCH (RBC) [Entitic mass] 31.2 pg Normal 26.7-34.0 [facility] Comment on above: Performed By: #### C BC #### [facility] [address] [place] [address] Dr. Car Lozada MCHC (RBC) [Mass/Vol] 33.6 g/dL Normal 29.9-35.2 [facility] Comment on above: Performed By: #### C BC #### [facility] [address] [address] [address] Car Lozada MCV (RBC) [Entitic vol] 92.9 fL Normal 81.0-99.0 [facility] Comment on above: Performed By: #### C BC #### [facility] [address] [address] [address] Car Lozada MONO # 0.9 103/ul Critically high 0.3-0.8 [facility] Comment on above: Performed By: #### C BC #### [facility] [address] [address] [address] Car Lozada Monocytes/100 WBC (Bld) 8.3 % Normal 1.7-12.0 [facility] Comment on above: Performed By: #### C BC #### [facility] [address] [place] [address] Dr. Car Lozada NEUT # 5.2 103/ul Normal 1.4-6.5 [facility] Comment on above: Performed By: #### C BC #### [facility] [address] [place] [address] Dr. Car Lozada Neutrophils/100 WBC (Bld) 50.2 % Normal 43.0-75.0 [facility] Comment on above: Performed By: #### C BC #### [facility] [address] [place] [address] Dr. Car Lozada Platelet mean volume (Bld) [Entitic vol] 10.0 fL Normal 9.5-13.5 [facility] Comment on above: Performed By: #### C BC #### [facility] [address] [place] [address] Dr. Car Lozada PLT 251 103/ul Normal 150-450 [facility] Comment on above: Performed By: #### C BC #### [facility] [address] [place] [address] Dr. Car Lozada RBC 4.52 106/ul Normal 4.20-5.40 [facility] Comment on above: Performed By: #### C BC #### [facility] [address] [place] [address] Dr. Car Lozada WBC 10.3 103/ul Normal 4.0-11.0 [facility] Comment on above: Performed By: #### C BC #### [facility] [address] [address] [address] Car Lozada PREG QUANT HCGon 08-23-2022 HCG QUANT <1 Normal [facility] Comment on above: Performed By: #### P REGQNT #### [facility] [address] [address] [address] Car Lozada HCG RANGE SEE BELOW Normal [facility] Comment on above: Result Comment: 5-50 0.2-1 WEEK 50-500 1-2 WEEKS 100-5,000 2-3 WEEKS 500-10,000 3-4 WEEKS 1,000-50,000 4-5 WEEKS 10,000-100,000 5-6 WEEKS 15,000-200,000 6-8 WEEKS 10,000-100,000 2-3 MONTHS Performed By: #### P REGQNT #### [facility] [address] [place] [address] Dr. Car Lozada XR CHEST 2 Von [...] JOSÉ MIGUEL LIMON Date: 2022-08-16 10:17 Normal [facility] PAP ACOG PANEL 2: 21 to 29on 06-25-2022 . . Normal [facility] Comment on above: Performed By: #### [id number] #### [facility] [address] [place] [address] Dr. Car Lozada Age Gdln ACOG Testing 21-29 Normal [facility] Comment on above: Performed By: #### [id number] #### [facility] [address] [address] [address] Car Lozada DIAGNOSIS: Comment Abnormal [facility] Comment on above: Result Comment: EPIT HELIAL CELL ABNORMALITY. LOW GRADE SQUAMOUS INTRAEPITHELIAL LESION (LSIL). Performed By: #### [id number] #### [facility] [address] [address] [address] Car Lozada Electronically signed by: Comment Normal [facility] Comment on above: Result Comment: Phyllis Vital MD, Pathologist Performed By: #### 4 [id number] #### [facility] [address] [address] [address] Car Lozada Methodology: Comment Normal [facility] Comment on above: Result Comment: This liquid based ThinPrep(R) pap test was screened with the use of an image guided system. Performed By: #### [id number] #### [facility] [address] [place] [address] Dr. Car Lozada Note: Comment Normal [facility] Comment on above: Result Comment: The Pap smear is a screening test designed to aid in the detection of premalignant and malignant conditions of the uterine cervix. It is not a diagnostic procedure and should not be used as the sole means of detecting cervical cancer. Both false-positive and false-negative reports do occur. . Performed By: #### [id number] #### [facility] [address] [place] [address] Dr. Car Lozada Pathologist Provided ICD10 Comment Normal [facility] Comment on above: Result Comment: [id number]. [id number] Performed By: #### 4 [id number] #### [facility] [address] [place] [address] Dr. Car Lozada Performed by: Comment Normal [facility] Comment on above: Result Comment: Sidney Masters, Ic Engineer (ASCP) Performed By: #### 4 [id number] #### [facility] [address] [place] [address] Dr. Car Lozada Recommendation: Comment Abnormal [facility] Comment on above: Result Comment: Sugg est follow up as clinically appropriate. Performed By: #### 4 [id number] #### [facility] [address] [address] [address] Car Lozada Reflex Criteria: Comment Normal [facility] Comment on above: Result Comment: The HPV DNA reflex criteria were not met with this specimen result therefore, no HPV testing was performed. . Performed By: #### [id number] #### [facility] [address] [address] [address] Car Lozada Specimen adequacy: Comment Normal [facility] Comment on above: Result Comment: Sati sfactory for evaluation. Endocervical and/or squamous metaplastic cells (endocervical component) are present. Performed By: #### 4 [id number] #### [facility] [address] [address] [address] Car Lozada Body fluid albumin measureme nt (mass/volume)Ordered By: Dom Paulino on 12-22-2021 Albumin (Body fld) [Mass/Vol] 3.4 g/dL 3.2-5.5 [facility] Cholesterol [Mass/volume] in Serum or PlasmaOrdered By: Dom Paulino on 12-22-2021 Cholesterol [Mass/Vol] 228 mg/dL 140-200 [facility] Comment on above: Chol less than 200 m g/dl low risk Chol 201-239 mg/dl borderline risk Chol 240 mg/dl and greater high risk Cholesterol in LDL Calc [Mas s/Vol]Ordered By: Dom Paulino on 12-22-2021 Cholesterol in LDL [Mass/Vol] 136 mg/dL 0-100 [facility] Comment on above: LDL ATP III CLASSIFI CATION LDL less than 100 mg/dL Optimal LDL 100-129 mg/dL Near or above optimal LDL 130-159 mg/dL Borderline high LDL 160-189 mg/dL High LDL greater than 189 mg/dL Very high Cholesterol in VLDL Calc [Ma ss/Vol]Ordered By: Dom Paulino on 12-22-2021 Cholesterol in VLDL [Mass/Vol] 19 mg/dL [facility] Comprehensive Metabolic Empo n 12-22-2021 Albumin [Mass/Vol] 3.4 g/dL Normal 3.2-5.5 [facility] Comment on above: Performed By: #### E BS CMP, EBS LIPID #### [facility] [address] [id number] [place] Albumin/Globulin [Mass ratio] 1.2 {ratio} Normal [facility] Comment on above: Performed By: #### E BS CMP, EBS LIPID #### [facility] [address] ALP [Catalytic activity/Vol] 48 U/L Normal 32-92 [facility] Comment on above: Performed By: #### E BS CMP, EBS LIPID #### [facility] [address] ALT [Catalytic activity/Vol] 14 U/L Normal 10-60 [facility] Comment on above: Performed By: #### E BS CMP, EBS LIPID #### [facility] [address] [place] [address] AST [Catalytic activity/Vol] 15 U/L Normal 10-42 [facility] Comment on above: Performed By: #### E BS CMP, EBS LIPID #### [facility] [address] [place] [address] Bilirubin [Mass/Vol] 0.3 mg/dL Normal 0.3-1.2 [facility] Comment on above: Performed By: #### E BS CMP, EBS LIPID #### [facility] [address] [place] [address] Calcium [Mass/Vol] 9.3 mg/dL Normal 8.2-10.2 [facility] Comment on above: Performed By: #### E BS CMP, EBS LIPID #### [facility] [address] [place] [address] [place] Chloride [Moles/Vol] 101 mmol/L Normal 95-114 [facility] Comment on above: Performed By: #### E BS CMP, EBS LIPID #### [facility] [address] [place] [address] [place] CO2 [Moles/Vol] 23.8 mmol/L Normal 22.0-30.0 [facility] Comment on above: Performed By: #### E BS CMP, EBS LIPID #### [facility] [address] Creatinine [Mass/Vol] 0.79 mg/dL Normal 0.44-1.03 [facility] Comment on above: Performed By: #### E BS CMP, EBS LIPID #### [facility] [address] [place] [address] [place] Estimated GFR ( Aleena > 60 Normal [facility] Comment on above: Result Comment: GFR estimated reference range: According to KDOQI guidelines, <60 ml/min/1.73m2 is sufficient to diagnose a patient with chronic kidney disease. Performed By: #### E BS CMP, EBS LIPID #### [address] Estimated GFR (Non- Am > 60 Normal [facility] Comment on above: Performed By: #### E BS CMP, EBS LIPID #### [address] Globulin (S) [Mass/Vol] 2.8 g/dL Normal [place] Comment on above: Performed By: #### E BS CMP, EBS LIPID #### [place] [address] [place] Glucose [Mass/Vol] 76 mg/dL Normal 70-100 [facility] Comment on above: Performed By: #### E BS CMP, EBS LIPID #### [address] Potassium [Moles/Vol] 3.8 mmol/L Normal 3.5-5.1 [facility] Comment on above: Performed By: #### E BS CMP, EBS LIPID #### [place] [address] [place] Protein [Mass/Vol] 6.2 g/dL Normal 6.1-7.9 [facility] Comment on above: Performed By: #### E BS CMP, EBS LIPID #### [place] [address] [place] Sodium [Moles/Vol] 136 mmol/L Normal 136-146 [facility] Comment on above: Performed By: #### E BS CMP, EBS LIPID #### [facility] [address] [id number] [place] Urea nitrogen [Mass/Vol] 10 mg/dL Normal 9-23 [facility] Comment on above: Performed By: #### E BS CMP, EBS LIPID #### [facility] [address] [place] [address] [place] Creatinine and Glomerular fi ltration rate.predicted panel (S/P/Bld)Ordered By: Dom Paulino on 12-22-2021 Creatinine [Mass/Vol] 0.79 mg/dL 0.44-1.03 [facility] Estimated glomerular filtrat ion rate (GFR) non- AmericanOrdered By: Dom Paulino on 12-22-2021 GFR/1.73 sq M.predicted among non-blacks MDRD (S/P/Bld) [Vol rate/Area] > 60 mL/Min [facility] Globulin Calc (S) [Mass/Vol] Ordered By: Dom Paulino on 12-22-2021 Globulin (S) [Mass/Vol] 2.8 g/dL [facility] - Chemistry and C hemistry - challengeOrdered By: Dom Paulino on 12-22-2021 Glucose [Mass/Vol] 76 mg/dL 70-100 [facility] Lipid Profileon 12-22-2021 Cholesterol [Mass/Vol] 228 mg/dL High 140-200 [facility] Comment on above: Result Comment: Chol less than 200 mg/dl low risk Chol 201-239 mg/dl borderline risk Chol 240 mg/dl and greater high risk Performed By: #### E BS CMP, EBS LIPID #### [facility] [address] [place] [address] [place] Cholesterol in HDL [Mass/Vol] 73 mg/dL Normal 35-85 [facility] Comment on above: Result Comment: HDL CHOL ATP-III CLASSIFICATION Cardiovascular Risk HDL > or equal to 60 mg/dL LOW HDL < 40 mg/dL HIGH Performed By: #### E BS CMP, EBS LIPID #### [facility] [address] [place] [address] [place] Cholesterol.total/Janey sterol in HDL [Mass ratio] 3.1 {ratio} Normal <5.0 [facility] Comment on above: Result Comment: PERF ORMED BY: [place] [address] PATHOLOGIST [employer] TEACHER DENYS WOO M.D. Performed By: #### E BS CMP, EBS LIPID #### [facility] [address] LDL Cholesterol,Calculated 136 mg/dL High 0-100 [facility] Comment on above: Result Comment: LDL ATP III CLASSIFICATION LDL less than 100 mg/dL Optimal LDL 100-129 mg/dL Near or above optimal LDL 130-159 mg/dL Borderline high LDL 160-189 mg/dL High LDL greater than 189 mg/dL Very high Performed By: #### E BS CMP, EBS LIPID #### [address] Triglyceride w/Reflex 95 mg/dL Normal 35-149 [facility] Comment on above: Result Comment: TRIG ATP III CLASSIFICATION TRIG less than 150 mg/dL Normal TRIG 150-199 mg/dL Borderline high TRIG 200-500 mg/dL High TRIG greater than 500 mg/dL Very high Standard traceable to the Center for Disease Conrtrol and Prevention (CDC) test method. Performed By: #### E BS CMP, EBS LIPID #### [facility] [address] [place] [address] VLDL CHOLESTEROL 19 mg/dL Normal [facility] Comment on above: Performed By: #### E BS CMP, EBS LIPID #### [facility] [address] [place] [address] No Panel InformationOrdered By: Dom Paulino on 12-22-2021 Estimated GFR () > 60 mL/Min [facility] Comment on above: GFR estimated refere nce range: According to KDOQI guidelines, <60 ml/min/1.73m2 is sufficient to diagnose a patient with chronic kidney disease. Pharmacy Creatinine Clearance (Chem N/A [facility] Triglycerides Reflex 95 mg/dL 35-149 [facility] Comment on above: TRIG ATP III CLASSIF ICATION TRIG less than 150 mg/dL Normal TRIG 150-199 mg/dL Borderline high TRIG 200-500 mg/dL High TRIG greater than 500 mg/dL Very high Standard traceable to the Center for Disease Conrtrol and Prevention (CDC) test method. Protein [Mass/volume] in Ser um or PlasmaOrdered By: Dom Paulino on 12-22-2021 Protein [Mass/Vol] 6.2 g/dL 6.1-7.9 [facility] Serum or plasma alanine pan otransferase measurement without P-5'-P (enzymatic activiOrdered By: Dom Paulino on 12-22-2021 ALT No additional P-5'-P [Catalytic activity/Vol] 14 U/L 10-60 [facility] Serum or plasma albumin/glob ulin mass ratioOrdered By: Dom Paulino on 12-22-2021 Albumin/Globulin [Mass ratio] 1.2 {ratio} [facility] Serum or plasma alkaline nina sphatase measurement (enzymatic activity/volume)Ordered By: Dom Paulino on 12-22-2021 ALP [Catalytic activity/Vol] 48 U/L 32-92 [facility] Serum or plasma aspartate am inotransferase measurement (enzymatic activity/volume)Ordered By: Dom Paulino on 12-22-2021 AST [Catalytic activity/Vol] 15 U/L 10-42 [facility] Serum or plasma calcium dexter urement (mass/volume)Ordered By: Dom Paulino on 12-22-2021 Calcium [Mass/Vol] 9.3 mg/dL 8.2-10.2 [facility] Serum or plasma chloride glenis surement (moles/volume)Ordered By: Dom Paulino on 12-22-2021 Chloride [Moles/Vol] 101 mmol/L 95-114 [facility] Serum or plasma high density lipoprotein (HDL) cholesterol measurementOrdered By: Dom Paulino on 12-22-2021 Cholesterol in HDL [Mass/Vol] 73 mg/dL 35-85 [facility] Comment on above: HDL CHOL ATP-III CLA SSIFICATION Cardiovascular Risk HDL > or equal to 60 mg/dL LOW HDL < 40 mg/dL HIGH Serum or plasma potassium me asurement (moles/volume)Ordered By: Dom Paulino on 12-22-2021 Potassium [Moles/Vol] 3.8 mmol/L 3.5-5.1 [facility] Serum or plasma sodium measu rement (moles/volume)Ordered By: Dom Paulino on 12-22-2021 Sodium [Moles/Vol] 136 mmol/L 136-146 [facility] Serum or plasma total biliru bin measurement (mass/volume)Ordered By: Dom Paulino on 12-22-2021 Bilirubin [Mass/Vol] 0.3 mg/dL 0.3-1.2 [facility] Serum or plasma total carbon dioxide measurement (moles/volume)Ordered By: Dom Paulino on 12-22-2021 CO2 [Moles/Vol] 23.8 mmol/L 22.0-30.0 [facility] Serum or plasma total choles terol/high density lipoprotein (HDL) cholesterol mass ratOrdered By: Dom Paulino on 12-22-2021 Cholesterol.total/Janey sterol in HDL [Mass ratio] 3.1 {ratio} [facility] Serum or plasma urea nitroge n measurement (mass/volume)Ordered By: Dom Paulino on 12-22-2021 Urea nitrogen [Mass/Vol] 10 mg/dL 9-23 [facility] Outside Recordson 09-13-2021 Outside Records [id number]# 1.00[facility] Outside Recordson 08-28-2021 Outside Records [id number] #1.00[facility] Outside Records [id number] #1.00[facility] Consent Formson 07-14-2021 Consent Forms [id number] [address] Progress Note - Nurseon Progress Note - Nurse Antigen test ordered, test resulted positive, patient informed of positive result. In house test ordered, patient informed and swabbed, specimen sent to lab. [Electronically Signed on: 07/11/2021 16:04 EST] Kamini Tovar RN [Verified on: 07/11/2021 16:04 EST] Kamini Tovar RN [facility] Progress Note - Nurse Antigen test ordered, test resulted negative, patient informed of negative result. [Electronically Signed on: 07/11/2021 11:45 EST] Kamini Tovar RN [Verified on: 07/11/2021 11:45 EST] Kamini Tovar RN [facility] Measles (Rubeola) Imon 11-28 Measles (Rubeola) Im 3.49 Normal >1.09 [facility] Comment on above: Result Comment: Interpretation: IMMUNE Reference Range: <0.91 Not Immune 0.91-1.09 Equivocal >1.09 Immune Performed By: #### M EI, JUDY, VZI, TSPOT, MEÑO #### [address] [id number] Cereal Popper: Maury Watts MD Mumps,Immun,Abon 11-28-2020 Mumps,Immun,Ab 1.48 Normal >1.09 [facility] Comment on above: Result Comment: Interpretation: IMMUNE Reference Range: <0.91 Not Immune 0.91-1.09 Equivocal >1.09 Immune Performed By: #### M EI, JUDY, VZI, TSPOT, MEÑO #### [address] [id number] Cereal Popper: Maury Watts MD T-Spoton 11-28-2020 T-Spot. TB Test Normal [facility] Comment on above: Result Comment: [facility] Ibetor [address] [address] (NOTE) T-SPOT.TB Test Results --------- T-SPOT TB [...] M EI, JUDY, VZI, TSPOT, MEÑO #### [employer] [address] [place] [id number] Cereal Popper: Maury Watts MD VZ Immunityon 11-28-2020 VZ Immunity 2.04 Normal >1.09 [facility] Comment on above: Result Comment: Interpretation: IMMUNE Reference Range: <0.91 Not Immune 0.91-1.09 Equivocal >1.09 Immune Performed By: #### M EI, JUDY, VZI, TSPOT, MEÑO #### [facility] [address] [place], [place] [id number] Cereal Popper: Maury Watts MD Rubella Ab, IgGon 11-25-2020 Rubella Ab, IgG 150.4 IU/mL Normal [facility] Comment on above: Result Comment: REFERENCE RANGE: <5.0 NON-REACTIVE (non-immune) 5.0 TO 9.9 EQUIVOCAL >=10.0 REACTIVE (immune) Performed By: #### M EI, JUDY, VZI, TSPOT, MEÑO #### [facility] [address] [place] [address] Cereal Popper: Maury Watts MD Rubella antibody, IgGOrdered By: Morales Gardner on 11-25-2020 Rubella virus IgG Ql (S) 150.4 IU/mL [employer] Phone: Comment on above: REFERENCE RANGE: <5.0 NON-REACTIVE (non-immune) 5.0 TO 9.9 EQUIVOCAL >=10.0 REACTIVE (immune) [employer] Phone: Encounters Encounter Date Encounter Type Care Provider Facility Start: 03-17-2024 End: 03-17-2024 ambulatory ANGIE JEFFRY Not Available Start: 03-03-2024 End: 03-03-2024 ambulatory VANESA ROSAS Not Available Start: 02-18-2024 End: 02-18-2024 ambulatory ANGIE JEFFRY Not Available Start: 02-03-2024 End: 02-03-2024 ambulatory VANESA ROSAS Not Available Start: 01-20-2024 End: 01-20-2024 ambulatory ANGIE JEFFRY Not Available Start: 12-31-2023 End: 12-31-2023 ambulatory ANGIE JEFRFY Not Available Start: 12-03-2023 End: 12-03-2023 ambulatory ANGIE JEFFRY Not Available Start: 11-04-2023 End: 11-04-2023 ambulatory ANGIE JEFFRY Not Available Start: 10-07-2023 End: 10-07-2023 ambulatory ANGIE JEFFYR Not Available Start: 09-05-2023 End: 09-05-2023 ambulatory ANGIE JEFFRY Not Available Start: 05-21-2023 End: 05-21-2023 ambulatory ANGIE JEFFRY Not Available Start: 08-23-2022 End: 08-23-2022 ambulatory DR ANGIE VIVAR . Facility: Start: 08-20-2022 Encounter for preprocedural respiratory examination DR ANGIE VIVAR . [facility] Start: 08-16-2022 End: 08-17-[address] ANGIE VIVAR . Facility:[facility] Start: 08-16-2022 End: 08-17-2022 Encounter for preprocedural respiratory examination DR ANGIE VIVAR . Facility:[facility] Start: 06-13-2022 End: 06-13-[address] ANGIE VIVAR . Facility: Start: 04-26-2022 End: 04-27-2022 ambulatory [facility] Facility:[facility] Start: 12-22-2021 End: 12-22-2021 Departed Referred [facility] [address] Start: 07-13-2021 End: 07-13-2021 ambulatory [facility] Facility:[facility] Start: 07-12-2021 End: 07-12-2021 ambulatory [facility] Facility:[facility] Start: 11-25-2020 End: 11-26-2020 ambulatory [facility] Start: 11-25-2020 End: 11-25-2020 Subsequent hospital visit by physician [facility] Laboratory Procedures Date Procedure Procedure Detail Performing Clinician Start: 11-25-2020 Antibody rubella Omkar Gardner MD Work Phone: Plan of Treatment Date Care Activity Detail Author Start: 03-08-2021 Influenza vaccination Flu vacc ine (Season Ended) [employer] Phone: Start: 2005 COVID-19 Vaccine (1) COVID-19 Vaccin e (1) [employer] Phone: End: 11-25-2020 Mumps Antibody, IgG Mumps Antibody, IgG Lab Routine Once for 1 Occurrences starting 11/25/2020 until 11/25/2020 [employer] Phone: Comment on above: Once for 1 Occurrenc es starting 11/25/2020 until 11/25/2020 Mumps Antibody, IgG Mumps Antibo dy, IgG Lab Routine 11/25/2020 3:18 PM EDT [employer] Phone: End: 11-25-2020 Rubeola Antibody, IgG Rubeola Antibody, IgG Lab Routine Once for 1 Occurrences starting 11/25/2020 until 11/25/2020 [employer] Phone: Comment on above: Once for 1 Occurrenc es starting 11/25/2020 until 11/25/2020 Rubeola Antibody, IgG Rubeola An tibody, IgG Lab Routine 11/25/2020 3:18 PM EDT [employer] Phone: End: 11-25-2020 Tb antigen response gamma interferon t-cell susp T-Spot TB Test Lab Routine Once for 1 Occurrences starting 11/25/2020 until 11/25/2020 [employer] Phone: Comment on above: Once for 1 Occurrenc es starting 11/25/2020 until 11/25/2020 Tb antigen response gamma interferon t-cell susp T-Spot TB Test Lab Routine 11/25/2020 3:18 PM EDT [employer] Phone: End: 11-25-2020 Varicella Zoster Antibody, IgG Varicella Zoster Antibody, IgG Lab Routine Once for 1 Occurrences starting 11/25/2020 until 11/25/2020 [employer] Phone: Comment on above: Once for 1 Occurrenc es starting 11/25/2020 until 11/25/2020 Varicella Zoster Antibody, IgG Varicella Zoster Antibody, IgG Lab Routine 11/25/2020 3:18 PM EDT [employer] Phone: Payers Date Payer Category Payer Unknown [id number] 2020 Unknown [id number] 1993 Unknown [id number] 2.16.84 [id number] 1993 Unknown [id number] 2.16.84 [id number] 1993 Unknown [id number] 2.16.84 0.1.434542.3.579.2.593 1993 Unknown [id number] 2.16.84 0.1.433278.3.579.2.593 1993 Unknown [id number] 2.16.84 0.1.103248.3.579.2.9 1993 Unknown [id number] 2.16.84 0.1.668696.3.579.2.9 1993 Unknown [id number] 2.16.84 0.1.472528.3.579.2.9 1993 Unknown [id number] 2.16.84 0.1.168071.3.579.2.9 1993 Unknown [id number] 2.16.84 0.1.624134.3.579.2.1258 1993 Unknown [id number] 2.16.84 0.1.307278.3.579.2.9 1993 Unknown [id number] 2.16.84 0.1.320496.3.579.2.9 1993 Unknown [id number] 2.16.84 0.1.154122.3.579.2.9 1993 Unknown [id number] 2.16.84 0.1.657144.3.579.2.9 1993 Unknown [id number] 2.16.84 0.1.474961.3.579.2.9 1993 Unknown [id number] 2.16.840. [id number] 1959 Unknown [id number] Self-pay Self Pay [id number] Social History Date Type Detail Facility Tobacco smoking stat [facility] Unknown if ever smoked [employer] Phone: Start: 1995 Sex Assigned At Not on file [employer] Phone: Start: 1995 Sex Assigned At Female F [facility] Clinical Note 02-16-2023 Note Date & Type Note Facility 08-23-2022 Note OPERATIVE NOTE OPERATION DATE: 08/23/2022 PROCEDURE: LEEP Procedure. PREOPERATIVE DIAGNOSIS: Cervical dysplasia. POSTOPERATIVE DIAGNOSIS: Cervical dysplasia. ANESTHESIA: General. SURGEON: Angie Vivar D.O. ROPE TOW OPERATOR: None. BLOOD LOSS: 5 mL. SPECIMEN: [...] to Recovery Room in stable condition. [facility] Medication management note 06-11-2022 Note Date & Type Note Facility 06-11-2022 Note Entered by Diane Wadsworth on June 11, 2022 09:44:53 EST From: Diane Wadsworth To: LYNSEY GALLAGHER #[id number] Sent: 06/11/2022 09:44:53 EST Subject: Medication Management Submitted: Complete:desogestrel-ethinyl estradiol (Velivet oral tablet) Signed by Diane Wadsworth 06/11/2022 09:44:00 EST Approved desogestrel-ethinyl estradiol (VELIVET 28 DAY TABLET) take 1 tablet by mouth once daily Qty: 84 tab(s) Days Supply: 84 Refills: 0 Substitutions Allowed Route To Pharmacy - [facility] #[id number] Signed by Diane Wadsworth Patient matched by Diane Wadsworth on 06/11/2022 09:41:06 EST From: [facility] #[id number] To: Bhavya Estrada MD Sent: June 11, 2022 8:39:02 AM SOCIALLY RESPONSIBLE INVESTMENT ADVISER Subject: Medication Management Due: June 12, 2022 12:05:33 AM SOCIALLY RESPONSIBLE INVESTMENT ADVISER On Hold Pending Signature Drug: desogestrel-ethinyl estradiol (Velivet oral tablet), take 1 tablet by mouth once daily Quantity: 84 tab(s) Days Supply: 84 Refills: 1 Substitutions Allowed Notes from Pharmacy: Dispensed Drug: desogestrel-ethinyl estradiol (Velivet oral tablet), take 1 tablet by mouth once daily Quantity: 84 tab(s) Days Supply: 84 Refills: 0 Substitutions Allowed Notes from Pharmacy: [facility] Evaluation note Note Date & Type Note Facility Evaluation note No assessment information availa [facility] Work Phone: Summary Purpose Family [...] section and content) DATE CREATED AUTHOR 12/02/2020 [facility] DATE CREATED AUTHOR AUTHOR'S ORGANIZ ATION 12/23/2021 [facility] DATE CREATED AUTHOR AUTHOR'S ORGANIZ ATION 06/11/2022 [facility] l DATE CREATED AUTHOR AUTHOR'S ORGANIZ ATION 09/05/2022 [facility] DATE CREATED AUTHOR AUTHOR'S ORGANIZ ATION 03/19/2024 [facility] EPIC Care Teams (unrecognized [...] BE BASED ON THE PRIMARY CLINICAL RECORDS. [employer] provides no warranty or guarantee of the accuracy or completeness of information in this document.
[2024-03-25] MEDS: DINOPROSTONE 10 MG VAG INSERT.ER VAGINAL (17:00)
[2024-03-25 17:03] LABS: Amphetamine Screen Urine NEGATIVE (NEGATIVE); Barbiturates Screen Urine NEGATIVE (NEGATIVE); Benzodiazepines Screen Urine NEGATIVE (NEGATIVE); Buprenorphine Screen Urine NEGATIVE (NEGATIVE); Cannabinoid Screen Urine NEGATIVE (NEGATIVE); Cocaine Screen Urine NEGATIVE (NEGATIVE); Methadone Screen Urine NEGATIVE (NEGATIVE); Methamphetamines Screen Urine NEGATIVE (NEGATIVE); Opiate Screen Urine NEGATIVE (NEGATIVE); Oxycodone Screen Urine NEGATIVE (NEGATIVE); Phencyclidine Screen Urine NEGATIVE (NEGATIVE); Tricyclic Antidepressant Urine NEGATIVE (NEGATIVE)
[2024-03-25 17:09] LABS: Hematocrit 39.2 % (36.0-48.0); Hemoglobin 13.5 g/dL (12.0-16.0); Mean Corpuscular HGB Conc 34.4 g/dL (29.9-35.2); Mean Corpuscular Hemoglobin 32.1 pg (26.7-34.0); Mean Corpuscular Volume 93.1 fL (81.0-99.0); Mean Platelet Volume 12.6 fL (9.5-13.5); Platelet Count 173 10^3/uL (150-450); Red Blood Count 4.21 10^6/uL (4.20-5.40); Red Cell Distribution Width 12.7 % (11.0-15.0)
[2024-03-25] MEDS: ZOLPIDEM TARTRATE 5 MG TABLET 10 MG PO (20:31)
[2024-03-25] MEDS: LABETALOL HCL 100 MG TABLET PO (20:31)
[2024-03-26] VITALS (53 sets, daily range): BP systolic 92–175; BP diastolic 41–91; PULSE 70–101; TEMP 36.7–37.2; O2SAT 92–100
[2024-03-26] MEDS: 0.9 % SODIUM CHLORIDE 1,000 ML 125 ML IV (06:23)
[2024-03-26] MEDS: OXYTOCIN/0.9 % SODIUM CHLORIDE 10 UNITS/500 ML PLAST..BAG 6 UNIT IV (06:24)
[2024-03-26] MEDS: LABETALOL HCL 100 MG TABLET PO ×2 (09:10→21:50)
[2024-03-26] MEDS: 0.9 % SODIUM CHLORIDE 1,000 ML 1000 ML IV (14:53)
[2024-03-26] MEDS: FAMOTIDINE/PF 20 MG/2 ML VIAL IV (14:54)
[2024-03-26] MEDS: CITRIC ACID/SODIUM CITRATE 30 ML SOLUTION ORACIT SHOHL'S SOLN PO (14:54)
[2024-03-26] MEDS: METOCLOPRAMIDE HCL 10 MG/2 ML VIAL IVP (14:54)
[2024-03-26] MEDS: CLINDAMYCIN PHOSPHATE/D5W 900 MG/50 ML PREMIX 100 MG IV (15:05)
--- NOTE | 2024-03-26 15:55 | PM.ONB ---
Brief Operative Note Date of procedure: 03/26/24 Pre-op diagnosis general: iup at 37 4/7wks, mild preeclampsia, failure to dilate, failure to induce Post-op diagnosis: same as pre-op Procedure: NAME OF PROCEDURE: [ section ] PROCEDURE: Patient was taken back to the Operating Room where she was given a spinal anesthesia with Duramorph without difficulty. She was prepped and draped in the normal sterile fashion. A Pfannenstiel skin incision was then made 2 cm above the symphysis pubis and carried down to underlying rectus fascia using a Bovie. The fascia was incised in the midline and extended laterally using Vazquez scissors. Two Karlie clamps were placed on the superior aspect of the fascia and dissected off the underlying rectus muscles. The same was performed on the inferior aspect as well. The muscles were then in the midline. Peritoneum was identified and entered bluntly. The peritoneum was then extended superiorly and inferiorly with good visualization of the bladder. The bladder blade was inserted. A low transverse incision was made on the patient's uterus and extended laterally digitally. The infant was then delivered atraumatically after the bladder blade was removed in the cephalic position. The cord was clamped and cut. Cord blood was obtained. The infant was handed off to awaiting team. The patient's placenta was spontaneously delivered. The uterus was then exteriorized. The uterus was cleared of all clots and debris. The bladder blade was reinserted. The patient's uterine incision was closed using #0 Vicryl in a running lock fashion. Excellent hemostasis was assured. The uterus was then returned to the patient's abdomen. The patient's abdomen was copiously irrigated using warm saline. Peritoneal gutters were cleared of all clots and debris. Again excellent hemostasis was assured. The patient's peritoneum was closed using 3-0 Vicryl in a running fashion. The patient's fascia was closed using #0 Vicryl in a running fashion. The patient's skin was closed using 4-0 Vicryl subcuticularly. The patient tolerated the procedure well. Sponge, lap, and needle counts were correct x2. The patient was taken to the Recovery Room in stable condition. Anesthesia: spinal Surgeon: Zain Vivar Resin Coater: Janell Layton Estimated blood loss (mL): 575 Pathology: none sent Condition: stable Disposition: PACU Urinary Catheter Management Urinary Catheter Management Urethral: Cath placed during this visit: no
--- NOTE | 2024-03-26 15:57 | P.OBPRC_ITS ---
Procedure Pre-op/Post-op diagnoses: Pre-Op/Post-Op Diagnoses Operation Date: 03/26/24 15:10 <No data on this case meets the specified criteria> Procedure: Procedures Operation Date: 03/26/24 15:10 Actual Procedure Side Surgeon p with delivery of viable baby girl Not Applicable Zain Vivar DO Flattening Press Operator: Janell Layton Estimated blood loss (mL): 575 Disposition: PACU Anesthesia type: Spinal
[2024-03-26] MEDS: OXYTOCIN/0.9 % SODIUM CHLORIDE 20 UNITS/1,000 ML PLAST..BAG 125 UNIT IV (16:20)
[2024-03-26] MEDS: KETOROLAC TROMETHAMINE 30 MG/ML VIAL IVP (18:47)
[2024-03-26] MEDS: CLINDAMYCIN PHOSPHATE/D5W 900 MG/50 ML PREMIX 50 MG IV (21:49)
[2024-03-27] VITALS (7 sets, daily range): BP systolic 125–143; BP diastolic 70–78; PULSE 75–85; TEMP 36.7–37.1
[2024-03-27] MEDS: KETOROLAC TROMETHAMINE 30 MG/ML VIAL IVP ×2 (02:23→08:35)
[2024-03-27] MEDS: ENOXAPARIN SODIUM 40 MG/0.4 ML SYRINGE SUBQ (03:39)
[2024-03-27 06:18] LABS: Basophils Percent Auto 0.2 % (0.2-2.0); Eosinophils Percent Auto 0.1 % (0.9-7.0); Hematocrit 33.2 % (36.0-48.0); Hemoglobin 11.5 g/dL (12.0-16.0); Immature Granulocytes Abs Auto 0.17 10^3/uL (0.00-0.03); Lymphocytes Absolute Auto 1.5 10^3/uL (1.2-3.8); Lymphocytes Percent Auto 8.6 % (20.5-60.0); Mean Corpuscular HGB Conc 34.6 g/dL (29.9-35.2); Mean Corpuscular Hemoglobin 32.3 pg (26.7-34.0); Mean Corpuscular Volume 93.3 fL (81.0-99.0); Monocytes Absolute Auto 1.5 10^3/uL (0.3-0.8); Monocytes Percent Auto 8.2 % (1.7-12.0); Neutrophils Absolute Auto 14.7 10^3/uL (1.4-6.5); Neutrophils Percent Auto 81.9 % (43.0-75.0); Platelet Count 176 10^3/uL (150-450); Red Blood Count 3.56 10^6/uL (4.20-5.40); Red Cell Distribution Width 12.4 % (11.0-15.0); White Blood Count 17.9 10^3/uL (4.0-11.0)
--- NOTE | 2024-03-27 08:08 | P.OBPN_ITS ---
OB - PN: Subj Subjective Patient comments: no complaints and pain well controlled [place] status: doing well Exam Constitutional Vital Signs, click to edit/add: Last Vital Signs Temp 98.1 F 03/26/24 19:00 Pulse 80 03/27/24 03:56 Resp 18 03/27/24 03:50 BP 136/71 03/27/24 03:56 Pulse Ox 93 L 03/26/24 19:20 O2 Del Method Room Air 03/27/24 03:50 Documenting provider has reviewed patient's vital signs: yes Common normals: no apparent distress Respiratory Common normals: clear to auscultation bilaterally Cardio Common normals: regular rate and regular rhythm GI Common normals: Normal to inspection, nondistended, normoactive bowel sounds present Extremity Common normals: no calf tenderness Results Labs Labs: Short CBC 03/27/24 Range/Units 06:05 WBC 17.9 H (4.0-11.0) 10^3/uL Hgb 11.5 L (12.0-16.0) g/dL Hct 33.2 L (36.0-48.0) % Plt Count 176 (150-450) 10^3/uL Urinary Catheter Management Urinary Catheter Management Urethral: Cath placed during this visit: yes Urethral indwelling: No Insertion date: 03/26/24 OB - PN: A/P Plan - day: 1 Plan: routine postop care Time Spent with Patient Time: Total time spent is greater than 50% in coordination of care (as documented) at patient's floor/unit and/or counseling patient: Total time spent with greater than 50% in coordination of care (as documented) at patient's floor/unit and/or counseling patient: less than 15 minutes
[2024-03-27] MEDS: LABETALOL HCL 100 MG TABLET PO ×2 (08:34→21:05)
[2024-03-27] MEDS: DOCUSATE SODIUM 100 MG CAPSULE PO ×2 (08:35→21:06)
--- NOTE | 2024-03-27 11:20 | RESP.RT ---
done per nursing
[2024-03-27] MEDS: IBUPROFEN 400 MG TABLET 800 MG PO ×2 (15:11→23:31)
--- NOTE | 2024-03-27 19:24 | W.PC.ACHO ---
Registration Status: ADM IN Primary Language: Zimbabwean Preferred Language: Zimbabwean Report given to Quang HADDAD at 1910. Care relinquished. Active Medications Generic Name Dose Route Start Last Admin Trade Name Freq PRN Reason Stop Dose Admin Acetaminophen 1,000 mg 03/25/24 16:16 Acetaminophen 500 Mg Tablet PO Q6H PRN Pain Al Hydroxide/Mg Hydroxide 2,400 mg 03/26/24 15:57 Magnesium Hydroxide 2,400 Mg/10 Ml Oral.Susp PO Q6H PRN Dyspepsia Diphtheria/Pertussis/Tetanus Vacc 0.5 ml 03/28/24 09:00 Adacel Diph,Pertuss(Acell),Tet Vac/Pf 0.5 Ml Adult Syringe IM 03/28/24 09:01 .ONCE ONE Docusate Sodium 100 mg 03/27/24 09:00 03/27/24 08:35 Docusate Sodium 100 Mg Capsule PO 100 mg BID GRIS Administration Enoxaparin Sodium 40 mg 03/27/24 03:00 03/27/24 03:39 Enoxaparin Sodium 40 Mg/0.4 Ml Syringe SUBQ 40 mg Q24H GRIS Administration Sodium Chloride 1,000 mls @ 125 mls/hr 03/25/24 16:30 03/26/24 06:23 Sodium Chloride 0.9% 1,000 Ml IV 125 mls/hr .Q8H PRN Administration Labor Induction Lactated Ringer's 1,000 mls @ 125 mls/hr 03/26/24 16:00 Lactated Ringers IV .Q8H GRIS Promethazine HCl 25 mg/ Sodium 51 mls @ 204 mls/hr 03/26/24 15:57 Chloride IV Q6H PRN Nausea And Vomiting Ibuprofen 800 mg 03/26/24 15:57 03/27/24 15:11 Ibuprofen 400 Mg Tablet PO 800 mg Q8H PRN Administration Pain Ketorolac Tromethamine 30 mg 03/26/24 15:57 03/27/24 08:35 Ketorolac Tromethamine 30 Mg/Ml Vial IVP 03/28/24 15:58 30 mg Q6H PRN Administration Pain Labetalol HCl 100 mg 03/25/24 21:00 03/27/24 08:34 Labetalol Hcl 100 Mg Tablet PO 100 mg BID GRIS Administration Measles/Mumps/Rubella Vaccine Live 0.5 ml 03/28/24 09:00 Measles,Mumps,Rubella Vacc/Pf 0.5 Ml Vial SQ 03/28/24 09:01 .ONCE ONE Ondansetron HCl 4 mg 03/25/24 16:16 Ondansetron Pf 4 Mg/2 Ml Vial IV Q6H PRN Nausea And Vomiting Ondansetron HCl 4 mg 03/25/24 16:16 Ondansetron 4 Mg Rapdis Tablet SL Q6H PRN Nausea And Vomiting Oxycodone/Acetaminophen 1 tab 03/26/24 15:57 Oxycodone Hcl/Acetaminophen 5mg/325mg PO Q4H PRN Pain Scale 4-6 Oxycodone/Acetaminophen 2 tab 03/26/24 15:57 Oxycodone Hcl/Acetaminophen 5mg/325mg PO Q4H PRN Pain Scale 7-10 Senna 17.2 mg 03/26/24 20:00 Sennosides 8.6 Mg Tablet PO QHS PRN Constipation Simethicone 80 mg 03/26/24 15:57 Simethicone 80 Mg Tab.Chew PO QID PRN Abdominal Distention Zolpidem Tartrate 10 mg 03/25/24 19:48 03/25/24 20:31 Zolpidem Tartrate 5 Mg Tablet PO 10 mg HS PRN Administration Sleep Respiratory Oxygen Delivery Method Room Air Oxygen Delivery Method Room Air Oxygen Delivery Method Room Air Oxygen Delivery Method Room Air Oxygen Delivery Method Room Air Oxygen Delivery Method Room Air Cardiology Heart Sounds Strong,Regular Heart Sounds Strong,Regular Heart Sounds Strong,Regular Bowels Bowel Pattern No Bowel Movement Renal Bladder Pattern Continent Catheter Urinary Catheter Date of 03/26/24 Insertion [Urethral]
[2024-03-28 03:04] VITALS: BP 133/72; PULSE 80
[2024-03-28] MEDS: ENOXAPARIN SODIUM 40 MG/0.4 ML SYRINGE SUBQ (03:05)
[2024-03-28 03:14] VITALS: TEMP 36.5
[2024-03-28 07:40] VITALS: BP 148/74; PULSE 85; TEMP 36.9
[2024-03-28] MEDS: IBUPROFEN 400 MG TABLET 800 MG PO (07:52)
[2024-03-28] MEDS: LABETALOL HCL 100 MG TABLET PO (07:56)
--- NOTE | 2024-03-28 10:52 | PM.OBDS ---
DS: Providers Provider Date of admission: 03/25/24 16:04 Primary care physician: Non-Staff Physician, Admitting clinician: Zain Vivar Consults: 03/25/24 Consult to Anesthesiology Routine Consulting Provider: Ugo Yuen II Reason for consultation: epidural Discharging clinician: Libertad Zarate Anticipated date of discharge: 03/28/24 DS: Diagnosis Discharge Diagnosis (1) delivery delivered: (2) Hypertension affecting : Assessment and plan: CONDITION GOOD, VOICING NO COMPLAINTS, INSTRUCTIONS GIVEN FOR DISCHARGE Qualifiers: Trimester: third trimester Qualified Code(s): O16.3 - Unspecified maternal hypertension, third trimester Plan DISCHARGE HOME, FOLLOW UP IN ONE WEEK FOR INCISION AND BLOOD PRESSURE CHECK OB - DS: Summary Hospital Course Hospital Course: FAILED INDUCTION AND DECREASED MOVEMENT A/W [facility] RESULTING IN URGENT LT[facility] Time spent discussing smoking cessation with patient: 3 to 10 minutes Peripartum Data - Procedures: Procedures Operation Date: 03/26/24 15:10 Actual Procedure Side Surgeon p with delivery of viable baby girl Not Applicable Zain Vivar DO Peripartum Data - Vaginal Delivery Procedures: Procedures Operation Date: 03/26/24 15:10 Actual Procedure Side Surgeon p with delivery of viable baby girl Not Applicable Zain Vivar DO Complications complications: none Infant Delivery method: section Gender: female Discharge plan: home Status at Discharge Cognitive/behavioral status at discharge: WNL Functional status at discharge: independent ambulation Overall status at discharge: patient is progressing back to baseline Time Spent with Patient Time attestation: Total time spent providing and/or coordinating discharge services: Time spent: less than 30 minutes Exam Constitutional Vital Signs, click to edit/add: Last Vital Signs Temp 98.4 F 03/28/24 07:40 Pulse 85 03/28/24 07:40 Resp 14 03/28/24 03:14 BP 148/74 H 03/28/24 07:40 Pulse Ox 93 L 03/26/24 19:20 O2 Del Method Room Air 03/28/24 09:03 Common normals: no apparent distress, oriented x3, no limitations, healthy appearing and alert HENNC Common normals: normocephalic and head/scalp atraumatic Eye Pupil: PERRL and accommodation reflex normal Neck & C-Spine Common normals: full ROM and supple Respiratory Common normals: normal respiratory effort Auscultation: clear to auscultation bilaterally Cardio Common normals: regular rate and regular rhythm GI Common normals: Normal to inspection, nondistended, normoactive bowel sounds present and soft to palpation Common normals: no CVA tenderness Back & Pelvis Common normals: no thoracic nor lumbar tenderness Extremity Common normals: full ROM and no calf tenderness Neuro Common normals: CN's II-XII intact bilaterally, moves all extremities, no focal motor deficits and no sensory deficits noted Psych Common normals: mental status grossly normal, thought process normal, cooperative and affect normal Discharge Plan Discharge Disposition: Home, Self-Care Discharge Medications: Continued Complete 14 mg iron- 400 mcg tablet 1 tab PO DAILY (DME) blood-glucose meter [FreeStyle [place] Lite] Kit MISCELLANEOUS (DME) lancets [FreeStyle Lancets] 28 gauge misc MISCELLANEOUS labetalol 100 mg tablet 100 mg PO BID Activity: increase activity as tolerated Activity Detail: NO SEX SIX WEEKS, NO BATHTUB 4 WEEKS, WALKING ONLY EXERCISE SIX WEEKS, SPORTS BRA 28/01 IF STOPS BREAST FEEDING, ONLY LIFT BABY SIX WEEKS, NO DRIVING 4 WEEKS, CALL FOR PROBLEM OR CONCERN Diet: regular diet Print Language: Moldovan Patient Instructions: (DC) Forms: Portal Instructions Follow Up Appointments: WILL SEE DR. VIVAR IN ONE WEEK FOR INCISION CHECK Discharge location: HOME
[2024-03-28] MEDS: ACETAMINOPHEN 500 MG TABLET 1000 MG PO (10:56)
[2024-03-28] MEDS: DOCUSATE SODIUM 100 MG CAPSULE PO (10:57)
== END 2024-03-28 12:35 | disposition home or self-care (01) | DRG 788 ==
PROVIDERS: Admitting Provider Obstetrics & Gynecology; Visit Provider Obstetrics & Gynecology
PROC: 10D00Z1 Extraction of Products of Conception, Low, Open Approach (ICD-10-PCS; CPT 59514; principal; 2024-03-26 15:10)
DX: O14.04 Mild to moderate pre-eclampsia, complicating childbirth (principal); O62.0 Primary inadequate contractions; O61.0 Failed medical induction of labor; O24.429 Gestational diabetes mellitus in childbirth, unspecified control; O36.8130 Decreased fetal movements, third trimester, not applicable or unspecified; Z3A.37 37 weeks gestation of pregnancy; Z37.0 Single live birth
CPT/HCPCS: 36415; 59050; 80307; 85025; 85027; 86850; 86900; 86901; 94667; 96365; 96366; 96372; 96375; 96376; J0665; J0736; J1100; J1650; J1885; J2274; J2371; J2405; J2590; J2765

== ENCOUNTER 2024-03-30 08:08 | Outpatient (OUT) | payer BC, SELFPAY ==
--- OUTSIDE RECORDS SUMMARY | 2024-03-30 08:31 | XMS_ITS | CCD ---
Author Organization [facility] Care Team Providers Care Shield Operator Name Role Phone Unavailable Primary Care Provider UnavailMORALES Renner Referring Unavailable NON STAFF Primary Care Provider UnavailDO Dom Cerda Jr Attending Provider [phone] Bhavya Estrada Primary Care Unavailable Bhavya Estrada [...] ANGIE Attending Unavailable JEFFRY, ANGIE Attending Unavailable JEFFRY, ANGIE Attending Unavailable JEFFRY, ANGIE Attending Unavailable JEFFRY, ANGIE Attending Unavailable VANESA ROSAS Attending Unavailable JEFFRY, ANGIE Attending Unavailable ALISON, VANESA Attending Unavailable JEFFRYANGIE Attending Unavailable JEFFRY, ANGIE Attending Unavailable JEFFRY, ANGIE Attending Unavailable Allergies Allergy Classification Reported Allergen(s) Allergy Type Date of Onset Reaction(s) Facility (2 sources) Amoxicillin; Translations: [amoxicillin] Drug Allergy [facility] Repository (1 source) tiZANidine; Translations: [tiZANidine] Drug Allergy [facility] Hospital Repository Problems Problem Classification Problem [...] 08-23-2022 BASO # 0.1 103/ul Normal 0.0-0.1 [facility] Comment on above: Performed By: #### C BC #### [facility] [address] [place] [address] Dr. Car Lozada Basophils/100 WBC (Bld) 0.5 % Normal 0.2-2.0 [facility] Comment on above: Performed By: #### C BC #### [facility] [address] [address] [address] Car Lozada EO # 0.6 103/ul Normal 0.0-0.7 [facility] Comment on above: Performed By: #### C BC #### [facility] [address] [address] [address] Car Lozada Eosinophils/100 WBC (Bld) 5.9 % Normal 0.9-7.0 [facility] Comment on above: Performed By: #### C BC #### [facility] [address] [address] [address] Car Lozada Erythrocyte distribution width (RBC) [Ratio] 12.6 % Normal 11.0-15.0 [facility] Comment on above: Performed By: #### C BC #### [facility] [address] [place] [address] Dr. Car Lozada Hematocrit (Bld) [Volume fraction] 42.0 % Normal 36.0-48.0 [facility] Comment on above: Performed By: #### C BC #### [facility] [address] [address] [address] Car Lozada Hemoglobin (Bld) [Mass/Vol] 14.1 g/dL Normal 12.0-16.0 [facility] Comment on above: Performed By: #### C BC #### [facility] [address] [address] [address] Car Lozada IG # 0.04 10e3/ul Critically high 0.00-0.03 [facility] Comment on above: Performed By: #### C BC #### [facility] [address] [address] [address] Car Lozada IG % 0.4 % Normal 0.0-0.5 [facility] Comment on above: Performed By: #### C BC #### [facility] [address] [place] [address] Dr. Car Lozada LYMPH # 3.6 103/ul Normal 1.2-3.8 [facility] Comment on above: Performed By: #### C BC #### [facility] [address] [place] [address] Dr. Car Lozada Lymphocytes/100 WBC (Bld) 34.7 % Normal 20.5-60.0 [facility] Comment on above: Performed By: #### C BC #### [facility] [address] [place] [address] Dr. Car Lozada MANUAL DIFF REQ NO Normal [facility] Comment on above: Performed By: #### C BC #### [facility] [address] [place] [address] Dr. Car Lozada MCH (RBC) [Entitic mass] 31.2 pg Normal 26.7-34.0 [facility] Comment on above: Performed By: #### C BC #### [facility] [address] [place] [address] Dr. Car Lozada MCHC (RBC) [Mass/Vol] 33.6 g/dL Normal 29.9-35.2 [facility] Comment on above: Performed By: #### C BC #### [facility] [address] [address] [address] Car Lozada MCV (RBC) [Entitic vol] 92.9 fL Normal 81.0-99.0 [facility] Comment on above: Performed By: #### C BC #### [facility] [address] [address] [address] Car Lozada MONO # 0.9 103/ul Critically high 0.3-0.8 [facility] Comment on above: Performed By: #### C BC #### [facility] [address] [place] [address] Dr. Car Lozada Monocytes/100 WBC (Bld) 8.3 % Normal 1.7-12.0 [facility] Comment on above: Performed By: #### C BC #### [facility] [address] [place] [address] Dr. Car Lozada NEUT # 5.2 103/ul Normal 1.4-6.5 [facility] Comment on above: Performed By: #### C BC #### [facility] [address] [place] [address] Dr. Car Lozada Neutrophils/100 WBC (Bld) 50.2 % Normal 43.0-75.0 [facility] Comment on above: Performed By: #### C BC #### [facility] [address] [place] [address] Dr. Car Lozada Platelet mean volume (Bld) [Entitic vol] 10.0 fL Normal 9.5-13.5 [facility] Comment on above: Performed By: #### C BC #### [facility] [address] [place] [address] Dr. Car Lozada PLT 251 103/ul Normal 150-450 [facility] Comment on above: Performed By: #### C BC #### [facility] [address] [place] [address] Dr. Car Lozada RBC 4.52 106/ul Normal 4.20-5.40 [facility] Comment on above: Performed By: #### C BC #### [facility] [address] [address] [address] Cra Lozada WBC 10.3 103/ul Normal 4.0-11.0 [facility] Comment on above: Performed By: #### C BC #### [facility] [address] [address] [address] Car Lozada PREG QUANT HCGon 08-23-2022 HCG QUANT <1 Normal [facility] Comment on above: Performed By: #### P REGQNT #### [facility] [address] [address] [address] Car Lozada HCG RANGE SEE BELOW Normal [facility] Comment on above: Result Comment: 5-50 0.2-1 WEEK 50-500 1-2 WEEKS 100-5,000 2-3 WEEKS 500-10,000 3-4 WEEKS 1,000-50,000 4-5 WEEKS 10,000-100,000 5-6 WEEKS 15,000-200,000 6-8 WEEKS 10,000-100,000 2-3 MONTHS Performed By: #### P REGQNT #### [facility] [address] [place] [address] Dr. Car Lozada XR CHEST 2 Von [...] JOSÉ MIGUEL LIMON Date: 2022-08-16 10:17 Normal [facility] PAP ACOG PANEL 2: 21 to 29on 06-25-2022 . . Normal [facility] Comment on above: Performed By: #### [id number] #### [facility] [address] [place] [address] Dr. Car Lozada Age Gdln ACOG Testing 21-29 Normal [facility] Comment on above: Performed By: #### [id number] #### [facility] [address] [address] [address] Car Lozada DIAGNOSIS: Comment Abnormal [facility] Comment on above: Result Comment: EPIT HELIAL CELL ABNORMALITY. LOW GRADE SQUAMOUS INTRAEPITHELIAL LESION (LSIL). Performed By: #### [id number] #### [facility] [address] [address] [address] Car Lozada Electronically signed by: Comment Normal [facility] Comment on above: Result Comment: Phyllis Vital MD, Pathologist Performed By: #### [id number] #### [facility] [address] [place] [address] Dr. Car Lozada Methodology: Comment Normal [facility] Comment on above: Result Comment: This liquid based ThinPrep(R) pap test was screened with the use of an image guided system. Performed By: #### [id number] #### [facility] [address] [place] [address] Dr. Car Lozada Note: Comment Normal [facility] Comment on above: Result Comment: The Pap smear is a screening test designed to aid in the detection of premalignant and malignant conditions of the uterine cervix. It is not a diagnostic procedure and should not be used as the sole means of detecting cervical cancer. Both false-positive and false-negative reports do occur. . Performed By: #### [id number] #### [facility] [address] [place] [address] Dr. Car Lozada Pathologist Provided ICD10 Comment Normal [facility] Comment on above: Result Comment: [id number]. [id number] Performed By: #### 4 [id number] #### [facility] [address] [place] [address] Dr. Car Lozada Performed by: Comment Normal [facility] Comment on above: Result Comment: Sidney Masters, Stretcher Drier Operator (ASCP) Performed By: #### 4 [id number] #### [facility] [address] [place] [address] Dr. Car Lozada Recommendation: Comment Abnormal [facility] Comment on above: Result Comment: Sugg est follow up as clinically appropriate. Performed By: #### 4 [id number] #### [facility] [address] [address] [address] Car Lozada Reflex Criteria: Comment Normal [facility] Comment on above: Result Comment: The HPV DNA reflex criteria were not met with this specimen result therefore, no HPV testing was performed. . Performed By: #### 4 [id number] #### [facility] [address] [address] [address] Car Lozada Specimen adequacy: Comment Normal [facility] Comment on above: Result Comment: Sati sfactory for evaluation. Endocervical and/or squamous metaplastic cells (endocervical component) are present. Performed By: #### 4 [id number] #### [facility] [address] [address] [address] Car Lozada Body fluid albumin measureme nt (mass/volume)Ordered By: Dom Paulino on 12-22-2021 Albumin (Body fld) [Mass/Vol] 3.4 g/dL 3.2-5.5 [facility] Cholesterol [Mass/volume] in Serum or PlasmaOrdered By: Dom Paulino on 12-22-2021 Cholesterol [Mass/Vol] 228 mg/dL 140-200 [facility] Comment on above: Chol less than 200 m g/dl low risk Chol 201-239 mg/dl borderline risk Chol 240 mg/dl and greater high risk Cholesterol in LDL Calc [Mas s/Vol]Ordered By: Dom Paulino on 12-22-2021 Cholesterol in LDL [Mass/Vol] 136 mg/dL 0-100 [facility] Comment on above: LDL ATP III CLASSIFI CATION LDL less than 100 mg/dL Optimal LDL 100-129 mg/dL Near or above optimal LDL 130-159 mg/dL Borderline high LDL 160-189 mg/dL High LDL greater than 189 mg/dL Very high Cholesterol in VLDL Calc [Ma ss/Vol]Ordered By: Dom Paulino on 12-22-2021 Cholesterol in VLDL [Mass/Vol] 19 mg/dL [facility] Comprehensive Metabolic Empo n 12-22-2021 Albumin [Mass/Vol] 3.4 g/dL Normal 3.2-5.5 [facility] Comment on above: Performed By: #### E BS CMP, EBS LIPID #### [facility] [address] [place] [address] [place] Albumin/Globulin [Mass ratio] 1.2 {ratio} Normal [facility] Comment on above: Performed By: #### E BS CMP, EBS LIPID #### [facility] [address] [id number] [facility] ALP [Catalytic activity/Vol] 48 U/L Normal 32-92 [facility] Comment on above: Performed By: #### E BS CMP, EBS LIPID #### [facility] [address] ALT [Catalytic activity/Vol] 14 U/L Normal 10-60 [facility] Comment on above: Performed By: #### E BS CMP, EBS LIPID #### [facility] [address] AST [Catalytic activity/Vol] 15 U/L Normal 10-42 [facility] Comment on above: Performed By: #### E BS CMP, EBS LIPID #### [facility] [address] [place] [address] Bilirubin [Mass/Vol] 0.3 mg/dL Normal 0.3-1.2 [facility] Comment on above: Performed By: #### E BS CMP, EBS LIPID #### [facility] [address] [place] [address] [place] Calcium [Mass/Vol] 9.3 mg/dL Normal 8.2-10.2 [facility] Comment on above: Performed By: #### E BS CMP, EBS LIPID #### [facility] [address] [place] [address] [place] Chloride [Moles/Vol] 101 mmol/L Normal 95-114 [facility] Comment on above: Performed By: #### E BS CMP, EBS LIPID #### [facility] [address] [id number] [place] CO2 [Moles/Vol] 23.8 mmol/L Normal 22.0-30.0 [facility] Comment on above: Performed By: #### E BS CMP, EBS LIPID #### [facility] [address] Creatinine [Mass/Vol] 0.79 mg/dL Normal 0.44-1.03 [facility] Comment on above: Performed By: #### E BS CMP, EBS LIPID #### [facility] [address] Estimated GFR ( Aleena > 60 Normal [facility] Comment on above: Result Comment: GFR estimated reference range: According to KDOQI guidelines, <60 ml/min/1.73m2 is sufficient to diagnose a patient with chronic kidney disease. Performed By: #### E BS CMP, EBS LIPID #### [facility] [address] Estimated GFR (Non- Am > [address] [facility] Comment on above: Performed By: #### E BS CMP, EBS LIPID #### [address] Globulin (S) [Mass/Vol] 2.8 g/dL Normal [facility] Comment on above: Performed By: #### E BS CMP, EBS LIPID #### [address] Glucose [Mass/Vol] 76 mg/dL Normal 70-100 [facility] Comment on above: Performed By: #### E BS CMP, EBS LIPID #### [address] Potassium [Moles/Vol] 3.8 mmol/L Normal 3.5-5.1 [facility] Comment on above: Performed By: #### E BS CMP, EBS LIPID #### [place] [address] [place] Protein [Mass/Vol] 6.2 g/dL Normal 6.1-7.9 [facility] Comment on above: Performed By: #### E BS CMP, EBS LIPID #### [id number] [facility] Sodium [Moles/Vol] 136 mmol/L Normal 136-146 [facility] Comment on above: Performed By: #### E BS CMP, EBS LIPID #### [facility] [address] [id number] [place] Urea nitrogen [Mass/Vol] 10 mg/dL Normal 9-23 [facility] Comment on above: Performed By: #### E BS CMP, EBS LIPID #### [facility] [address] [place] [address] [place] Creatinine and Glomerular fi ltration rate.predicted panel (S/P/Bld)Ordered By: Dom Paulino on 12-22-2021 Creatinine [Mass/Vol] 0.79 mg/dL 0.44-1.03 [facility] Estimated glomerular filtrat ion rate (GFR) non- AmericanOrdered By: Dom Paulino on 12-22-2021 GFR/1.73 sq M.predicted among non-blacks MDRD (S/P/Bld) [Vol rate/Area] > 60 mL/Min [facility] Globulin Calc (S) [Mass/Vol] Ordered By: Dom Paulino on 12-22-2021 Globulin (S) [Mass/Vol] 2.8 g/dL [facility] - Chemistry and C hemistry - challengeOrdered By: Dom Paulino on 12-22-2021 Glucose [Mass/Vol] 76 mg/dL 70-100 [facility] Lipid Profileon 12-22-2021 Cholesterol [Mass/Vol] 228 mg/dL High 140-200 [facility] Comment on above: Result Comment: Chol less than 200 mg/dl low risk Chol 201-239 mg/dl borderline risk Chol 240 mg/dl and greater high risk Performed By: #### E BS CMP, EBS LIPID #### [facility] [address] [place] [address] [place] Cholesterol in HDL [Mass/Vol] 73 mg/dL Normal 35-85 [facility] Comment on above: Result Comment: HDL CHOL ATP-III CLASSIFICATION Cardiovascular Risk HDL > or equal to 60 mg/dL LOW HDL < 40 mg/dL HIGH Performed By: #### E BS CMP, EBS LIPID #### [facility] [address] [place] [address] [place] Cholesterol.total/Janey sterol in HDL [Mass ratio] 3.1 {ratio} Normal <5.0 [facility] Comment on above: Result Comment: PERF ORMED BY: [place] [address] PATHOLOGIST BAIL BONDSMAN DENYS WOO M.D. Performed By: #### E BS CMP, EBS LIPID #### [facility] [address] [place] [address] LDL Cholesterol,Calculated 136 mg/dL High 0-100 [facility] Comment on above: Result Comment: LDL ATP III CLASSIFICATION LDL less than 100 mg/dL Optimal LDL 100-129 mg/dL Near or above optimal LDL 130-159 mg/dL Borderline high LDL 160-189 mg/dL High LDL greater than 189 mg/dL Very high Performed By: #### E BS CMP, EBS LIPID #### [address] Triglyceride w/Reflex 95 mg/dL Normal 35-149 [facility] Comment on above: Result Comment: TRIG ATP III CLASSIFICATION TRIG less than 150 mg/dL Normal TRIG 150-199 mg/dL Borderline high TRIG 200-500 mg/dL High TRIG greater than 500 mg/dL Very high Standard traceable to the Center for Disease Conrtrol and Prevention (CDC) test method. Performed By: #### E BS CMP, EBS LIPID #### [address] VLDL CHOLESTEROL 19 mg/dL Normal [facility] Comment on above: Performed By: #### E BS CMP, EBS LIPID #### [facility] [address] [place] [address] No Panel InformationOrdered By: Dom Paulino on 12-22-2021 Estimated GFR () > 60 mL/Min [facility] Comment on above: GFR estimated refere nce range: According to KDOQI guidelines, <60 ml/min/1.73m2 is sufficient to diagnose a patient with chronic kidney disease. Pharmacy Creatinine Clearance (Chem N/A [facility] Triglycerides Reflex 95 mg/dL 35-149 [facility] Comment on above: TRIG ATP III CLASSIF ICATION TRIG less than 150 mg/dL Normal TRIG 150-199 mg/dL Borderline high TRIG 200-500 mg/dL High TRIG greater than 500 mg/dL Very high Standard traceable to the Center for Disease Conrtrol and Prevention (CDC) test method. Protein [Mass/volume] in Ser um or PlasmaOrdered By: Dom Paulino on 12-22-2021 Protein [Mass/Vol] 6.2 g/dL 6.1-7.9 [facility] Serum or plasma alanine pan otransferase measurement without P-5'-P (enzymatic activiOrdered By: Dom Paulino on 12-22-2021 ALT No additional P-5'-P [Catalytic activity/Vol] 14 U/L 10-60 [facility] Serum or plasma albumin/glob ulin mass ratioOrdered By: Dom Paulino on 12-22-2021 Albumin/Globulin [Mass ratio] 1.2 {ratio} [facility] Serum or plasma alkaline nina sphatase measurement (enzymatic activity/volume)Ordered By: Dom Paulino on 12-22-2021 ALP [Catalytic activity/Vol] 48 U/L 32-92 [facility] Serum or plasma aspartate am inotransferase measurement (enzymatic activity/volume)Ordered By: Dom Paulino on 12-22-2021 AST [Catalytic activity/Vol] 15 U/L 10-42 [facility] Serum or plasma calcium dexter urement (mass/volume)Ordered By: Dom Paulino on 12-22-2021 Calcium [Mass/Vol] 9.3 mg/dL 8.2-10.2 [facility] Serum or plasma chloride glenis surement (moles/volume)Ordered By: Dom Paulino on 12-22-2021 Chloride [Moles/Vol] 101 mmol/L 95-114 [facility] Serum or plasma high density lipoprotein (HDL) cholesterol measurementOrdered By: Dom Paulino on 12-22-2021 Cholesterol in HDL [Mass/Vol] 73 mg/dL 35-85 [facility] Comment on above: HDL CHOL ATP-III CLA SSIFICATION Cardiovascular Risk HDL > or equal to 60 mg/dL LOW HDL < 40 mg/dL HIGH Serum or plasma potassium me asurement (moles/volume)Ordered By: Dom Paulino on 12-22-2021 Potassium [Moles/Vol] 3.8 mmol/L 3.5-5.1 [facility] Serum or plasma sodium measu rement (moles/volume)Ordered By: Dom Paulino on 12-22-2021 Sodium [Moles/Vol] 136 mmol/L 136-146 [facility] Serum or plasma total biliru bin measurement (mass/volume)Ordered By: Dom Paulino on 12-22-2021 Bilirubin [Mass/Vol] 0.3 mg/dL 0.3-1.2 [facility] Serum or plasma total carbon dioxide measurement (moles/volume)Ordered By: Dom Paulino on 12-22-2021 CO2 [Moles/Vol] 23.8 mmol/L 22.0-30.0 [facility] Serum or plasma total choles terol/high density lipoprotein (HDL) cholesterol mass ratOrdered By: Dom Paulino on 12-22-2021 Cholesterol.total/Janey sterol in HDL [Mass ratio] 3.1 {ratio} [facility] Serum or plasma urea nitroge n measurement (mass/volume)Ordered By: Dom Paulino on 12-22-2021 Urea nitrogen [Mass/Vol] 10 mg/dL 9-23 [facility] Outside Recordson 09-13-2021 Outside Records [id number]# 1.00[facility] Outside Recordson 08-28-2021 Outside Records [id number] #[facility] [id number] #1.00[facility] Consent Formson 07-14-2021 Consent Forms [id number] #1.00[facility] Progress Note - Nurseon Progress Note - Nurse Antigen test ordered, test resulted positive, patient informed of positive result. In house test ordered, patient informed and swabbed, specimen sent to lab. [Electronically Signed on: 07/11/2021 16:04 EST] Kamini Tovar RN [Verified on: 07/11/2021 16:04 EST] Kamini Tovar RN [facility] Progress Note - Nurse Antigen test ordered, test resulted negative, patient informed of negative result. [Electronically Signed on: 07/11/2021 11:45 EST] Kamini Tovar RN [Verified on: 07/11/2021 11:45 EST] Kamini Tovar RN [facility] Measles ([place]ubeola) Imon 11-28 Measles ([place]ube[place]) Im 3.49 Normal >1.09 [facility] Comment on above: Result Comment: Interpretation: IMMUNE Reference Range: <0.91 Not Immune 0.91-1.09 Equivocal >1.09 Immune Performed By: #### M EI, JUDY, VZI, TSPOT, MEÑO #### [address] [id number] Professional System Administrator: Maury Watts MD Mumps,Immun,Abon 11-28-2020 Mumps,Immun,Ab 1.48 Normal >1.09 [facility] Comment on above: Result Comment: Interpretation: IMMUNE Reference Range: <0.91 Not Immune 0.91-1.09 Equivocal >1.09 Immune Performed By: #### M EI, JUDY, VZI, TSPOT, MEÑO #### [address] [id number] Professional System Administrator: Maury Watts MD T-Spoton 11-28-2020 T-Spot. TB Test Normal [facility] Comment on above: Result Comment: [facility] Offerial [address] [place] [phone] (NOTE) T-SPOT.TB Test Results --------- T-SPOT TB [...] M EI, JUDY, VZI, TSPOT, MEÑO #### [facility] [address] [place] [address] Professional System Administrator: Maury Watts MD VZ Immunityon 11-28-2020 VZ Immunity 2.04 Normal >1.09 [facility] Comment on above: Result Comment: Interpretation: IMMUNE Reference Range: <0.91 Not Immune 0.91-1.09 Equivocal >1.09 Immune Performed By: #### M EI, JUDY, VZI, TSPOT, MEÑO #### [facility] [address] [place] [address] Professional System Administrator: Maury Watts MD Rubella Ab, IgGon 11-25-2020 Rubella Ab, IgG 150.4 IU/mL Normal [facility] Comment on above: Result Comment: REFERENCE RANGE: <5.0 NON-REACTIVE (non-immune) 5.0 TO 9.9 EQUIVOCAL >=10.0 REACTIVE (immune) Performed By: #### M EI, JUDY, VZI, TSPOT, MEÑO #### [employer] [address] [place] [address] Professional System Administrator: Maury Watts MD Rubella antibody, IgGOrdered By: Morales Gardner on 11-25-2020 Rubella virus IgG Ql (S) 150.4 IU/mL [facility] Information Phone: Comment on above: REFERENCE RANGE: <5.0 NON-REACTIVE (non-immune) 5.0 TO 9.9 EQUIVOCAL >=10.0 REACTIVE (immune) [employer] Information Phone: Encounters Encounter Date Encounter Type Care Provider Facility Start: 03-25-2024 End: 03-25-2024 ambulatory ANGIE JEFFRY Not Available Start: 03-17-2024 End: 03-17-2024 ambulatory ANGIE JEFFRY Not Available Start: 03-03-2024 End: 03-03-2024 ambulatory VANESA ALISON Not Available Start: 02-18-2024 End: 02-18-2024 ambulatory ANGIE JEFFRY Not Available Start: 02-03-2024 End: 02-03-2024 ambulatory VANESA ALISON Not Available Start: 01-20-2024 End: 01-20-2024 ambulatory [...] Not Available Start: 08-23-2022 End: 08-23-2022 ambulatory ANGIE JEFFRY . Facility:[facility] Start: 08-20-2022 Encounter for preprocedural respiratory examination DR ANGIE VIVAR . [facility] Start: 08-16-2022 End: 08-17-[address] ANGIE VIVAR . Facility:[facility] Start: 08-16-2022 End: 08-17-2022 Encounter for preprocedural respiratory examination DR ANGIE VIVAR . Facility: Start: 06-13-2022 End: 06-13-[address] ANGIE VIVAR . Facility: Start: 04-26-2022 End: 04-27-2022 ambulatory [facility] Facility:[facility] Start: 12-22-2021 End: 12-22-2021 Departed Referred [facility] [address] Start: 07-13-2021 End: 07-13-2021 ambulatory [facility] [facility] Facility[facility] Start: 07-12-2021 End: 07-12-2021 ambulatory [facility] Facility:[facility] Start: 11-25-2020 End: 11-26-2020 ambulatory [facility] Start: 11-25-2020 End: 11-25-2020 Subsequent hospital visit by physician [facility] Laboratory Procedures Date Procedure Procedure Detail Performing Clinician Start: 11-25-2020 Antibody rubella Omkar Gardner MD Work Phone: Plan of Treatment Date Care Activity Detail Author Start: 03-08-2021 Influenza vaccination Flu vacc ine (Season Ended) [facility] Work Phone: Start: 2005 COVID-19 Vaccine (1) COVID-19 Vaccin e (1) [facility] Work Phone: End: 11-25-2020 Mumps Antibody, IgG Mumps Antibody, IgG Lab Routine Once for 1 Occurrences starting 11/25/2020 until 11/25/2020 [facility] [employer] Phone: Comment on above: Once for 1 Occurrenc es starting 11/25/2020 until 11/25/2020 Mumps Antibody, IgG Mumps Antibo dy, IgG Lab Routine 11/25/2020 3:18 PM EDT [employer] Phone: End: 11-25-2020 Rubeola Antibody, IgG Rubeola Antibody, IgG Lab Routine Once for 1 Occurrences starting 11/25/2020 until 11/25/2020 [employer] Phone: Comment on above: Once for 1 Occurrenc es starting 11/25/2020 until 11/25/2020 Rubeola Antibody, IgG Rubeola An tibody, IgG Lab Routine 11/25/2020 3:18 PM EDT [employer] Phone: End: 11-25-2020 Tb antigen response gamma interferon t-cell susp T-Spot TB Test Lab Routine Once for 1 Occurrences starting 11/25/2020 until 11/25/2020 [employer] Phone: Comment on above: Once for 1 Occurrenc es starting 11/25/2020 until 11/25/2020 Tb antigen response gamma interferon t-cell susp T-Spot TB Test Lab Routine 11/25/2020 3:18 PM EDT [employer] Phone: End: 11-25-2020 Varicella Zoster Antibody, IgG Varicella Zoster Antibody, IgG Lab Routine Once for 1 Occurrences starting 11/25/2020 until 11/25/2020 [employer] Phone: Comment on above: Once for 1 Occurrenc es starting 11/25/2020 until 11/25/2020 Varicella Zoster Antibody, IgG Varicella Zoster Antibody, IgG Lab Routine 11/25/2020 3:18 PM EDT [employer] Phone: Payers Date Payer Category Payer Unknown [id number] 2020 Unknown [id number] 1993 Unknown [id number] 2.16.84 [id number] 1993 Unknown [id number] 2.16.84 0.1.443546.3.579.2.593 1993 Unknown [id number] 2.16.84 0.1.507569.3.579.2.593 1993 Unknown [id number] 2.16.84 0.1.333029.3.579.2.593 1993 Unknown [id number] 2.16.84 0.1.788915.3.579.2.1259 1993 Unknown [id number] 2.16.84 0.1.457825.3.579.2.9 1993 Unknown [id number] 2.16.84 0.1.752236.3.579.2.1259 1993 Unknown [id number] 2.16.84 0.1.717878.3.579.2.9 1993 Unknown [id number] 2.16.84 0.1.004638.3.579.2.1259 1993 Unknown [id number] 2.16.84 0.1.044071.3.579.2.9 1993 Unknown [id number] 2.16.84 0.1.325634.3.579.2.1259 1993 Unknown [id number] 2.16.84 0.1.881449.3.579.2.9 1993 Unknown [id number] 2.16.84 0.1.430003.3.579.2.1259 1993 Unknown [id number] 2.16.84 0.1.005954.3.579.2.9 1993 Unknown [id number] 2.16.84 0.1.173603.3.579.2.1259 1993 Unknown [id number] 2.16.840. 1.187909.3.579.2.1259 1959 Unknown [id number] Self-pay Self Pay [id number] Social History Date Type Detail Facility Tobacco smoking stat [facility] Unknown if ever smoked [employer] Work Phone: Start: 1995 Sex Assigned At Not on file [employer] Work Phone: Start: 1995 Sex Assigned At Female [facility] Clinical Note 08-23-2022 Note Date & Type Note Facility 08-23-2022 Note OPERATIVE NOTE OPERATION DATE: 08/23/2022 PROCEDURE: LEEP Procedure. PREOPERATIVE DIAGNOSIS: Cervical dysplasia. POSTOPERATIVE DIAGNOSIS: Cervical dysplasia. ANESTHESIA: General. SURGEON: Angie Vivar D.O. [employer]: None. BLOOD LOSS: 5 mL. SPECIMEN: [...] to Recovery Room in stable condition. [facility] Medication management note 06-11-2022 Note Date & Type Note Facility 06-11-2022 Note Entered by Diane Wadsworth on June 11, 2022 09:44:53 EST From: Diane Wadsworth To: LYNSEY GALLAGHER #[id number] Sent: 06/11/2022 09:44:53 EST Subject: Medication Management Submitted: Complete:desogestrel-ethinyl estradiol (Velivet oral tablet) Signed by Diane Wadsworth 06/11/2022 09:44:00 EST Approved desogestrel-ethinyl estradiol (VELIVET 28 DAY TABLET) take 1 tablet by mouth once daily Qty: 84 tab(s) Days Supply: 84 Refills: 0 Substitutions Allowed Route To Pharmacy - [facility] #[id number] Signed by Diane Wadsworth Patient matched by Dinae Wadsworth on 06/11/2022 09:41:06 EST From: [facility] #[id number] To: Bhavya Estrada MD Sent: June 11, 2022 8:39:02 AM MEDICAL ANTHROPOLOGIST Subject: Medication Management Due: June 12, 2022 12:05:33 AM MEDICAL ANTHROPOLOGIST On Hold Pending Signature Drug: desogestrel-ethinyl estradiol (Velivet oral tablet), take 1 tablet by mouth once daily Quantity: 84 tab(s) Days Supply: 84 Refills: 1 Substitutions Allowed Notes from Pharmacy: Dispensed Drug: desogestrel-ethinyl estradiol (Velivet oral tablet), take 1 tablet by mouth once daily Quantity: 84 tab(s) Days Supply: 84 Refills: 0 Substitutions Allowed Notes from Pharmacy: [facility] Evaluation note Note Date & Type Note Facility Evaluation note No assessment information availa [facility] Work Phone: Summary Purpose Family History No [...] content) DATE CREATED AUTHOR 12/02/2020 [facility] DATE CREATED AUTHOR AUTHOR'S ORGANIZ ATION 12/23/2021 [facility] DATE CREATED AUTHOR AUTHOR'S ORGANIZ ATION 06/11/2022 [facility] DATE CREATED AUTHOR AUTHOR'S ORGANIZ ATION 09/05/2022 [facility] DATE CREATED AUTHOR AUTHOR'S ORGANIZ ATION 03/27/2024 [facility] EPIC Care Teams (unrecognized [...] BE BASED ON THE PRIMARY CLINICAL RECORDS. [facility] [employer] provides no warranty or guarantee of the accuracy or completeness of information in this document.
--- NOTE | 2024-03-30 13:05 | PC.NURSE ---
PriscilaFrnak and 4 day old Bina arrive for follow up appointment. Both parents states we are hanging in Admit to being tired and uncertain in new roles as parents. We will get there, we are new at this too . Support offered and feelings validated. Discussed ways to decrease workload of pumping and feeding every 2 hours around the clock. Parents will feed every 2 hours 6am to 10 pm and allow 3 hour stretches at night if baby so inclined. Priscila reports wearable pump just doesn't empty my breasts, and has really full outer quadrants. Discussed use of Spectra pump over wearable pump and mom agrees to use Spectra at this time. Flange fit at 21 mm vs the 24 mm she has been using. States will order correct size flange as well. Priscila with VSS and assessment WNL. Incision open to air, steri strips intact. No redness, edema or drainage noted. Taking Motrin for discomfort as needed. Baby Bina with VSS and assessment WNL. Weight down 5.2% today. being fed via bottle every 2 hours as parents wake her to feed. Taking 1-1.5 oz per feed. Mom able to pump double what baby is requiring at this time. Parents report 4-6 wet diapers yesterday and 4-6 brownish yellow stools as well. Parents doing well with infant ,very attentive and aware of baby needs. Will use slow paced bottle feeding as demo'd. Mom aware to call for assistance with returning infant to breast. Feels comfortable offering breast and working with for latch. Wants to continue to try on own. Aware of MOMS group and and continued support available. Family leaves ambulatory, no concerns
[2024-03-30 13:07] VITALS: BP 134/91; PULSE 89; TEMP 36.8; O2SAT 98
== END 2024-03-30 12:03 | disposition home or self-care (01) ==
LOC: FBCO 08:11
PROVIDERS: Visit Provider Obstetrics & Gynecology
DX: Z39.2 Encounter for routine postpartum follow-up (principal)

== ENCOUNTER 2024-06-22 11:03 | Outpatient (OUT) | payer BC, SELFPAY ==
--- NOTE | 2024-06-22 11:04 | US_ITS ---
[address] [address] Patient Name: MARISA ADAN MRN: [id number] date: 1995 Sex: F Assigned Patient Location: [facility] Current Patient Location: Accession/Order Number: [id number] Exam Date: 06/22/2024 11:16 Report Date: 06/23/2024 07:22 At the request of: ANGIE TERAN Procedure: US pelvis transvaginal EXAMINATION: US pelvis transvaginal HISTORY: Intrauterine device threads lost COMPARISON: No relevant comparison available. FINDINGS: The uterus is normal in size, contour and echotexture measuring 9.2 x 5.0 x 3.6 cm per the uterus is anteverted. Linear hyperechogenicity identified within the central cavity, normally positioned IUD. The endometrium measures 4.5 mm, normal The right ovary is normal measuring 3.0 x 2.2 x 1.7 cm. Normal color and Doppler flow The left ovary is normal measuring 2.6 x 2.5 x 1.7 cm. Normal color and Doppler flow No free fluid US/US pelvis transvaginal IMPRESSION: Normally positioned IUD Electronically authenticated by: OMID DOSS Date: 06/23/2024 07:22
--- OUTSIDE RECORDS SUMMARY | 2024-06-22 11:21 | XMS_ITS | CCD ---
Author Organization [facility] ion [facility] Care Team Providers Care Pie Filler Name Role Phone Unavailable Primary Care Provider UnavailMORALES Renner Referring Unavailable NON STAFF Primary Care Provider UnavailDO Dom Cerda Jr Attending Provider Bhavya Estrada Primary Care Unavailable Sean, Bhavya Primary Care Unavailable Bhavya Estrada Attending Unavailable Bhavya Estrada Primary Care Unavailable CB ., DR ADAMS Admitting Unavailable CB ., DR ADAMS Attending Unavailable CB ., DR ADAMS Consulting Unavailable ZIEBER, DR JOSÉ MIGUEL Garcia Consulting Unavailable CB ., DR ADAMS Admitting Unavailable CB ., DR ADAMS Attending Unavailable CB ., DR ADAMS Consulting Unavailable ANDERSON MORRIS Consulting Unavailable MATILDA II, PANFILO Consulting Unavailable SULEIMAN MENDOZA Consulting Unavailable CB ., DR ADAMS Attending Unavailable CB ., DR ADAMS Consulting Unavailable CB ., DR ADAMS Admitting Unavailable Bhavya Estrada MD Primary Care Provider MARIXA VIVARY Attending Unavailable CBMARIXAY Attending Unavailable CB, ANGIE Attending Unavailable CB, ANGIE Attending Unavailable CB, ANGIE Attending Unavailable VANESA ROSAS Attending Unavailable CB, ANGIE Attending Unavailable ALISONVANESA SORIA Attending Unavailable CB, ANGIE Attending Unavailable CB, ANGIE Attending Unavailable ALISON VANESA Attending Unavailable CB, ANGIE Attending Unavailable CB, ANGIE Attending Unavailable CB, ANGIE Attending Unavailable Allergies Allergy Classification Reported Allergen(s) Allergy Type Date of Onset Reaction(s) Facility (9 sources) Amoxicillin; Translations: [amoxicillin] Drug Allergy 3 [facility] Repository (1 source) tiZANidine; Translations: [tiZANidine] Drug Allergy [facility] Repository (7 sources) Penicillins Drug Intolerance 6 Hives [facility] Work Phone: Medications Current Medications Medication Drug Class(es) Dates Sig (Normalized) Sig (Original) clonazePAM 0.5 mg oral tablet (4 sources) Benzodiazepine Start: 05-08-2024 clonazePAM (KlonoPIN) 0.5 MG tablet 05/08/2024 Active levonorgestrel 0.430550 mg/hr intrauterine system (4 sources) Progestin, Progestin-containin g Intrauterine Device Start: 05-20-2024 End: 05-19-2029 Levonorgestrel intrauterine device 52 mg Start: 05-20-2024 End: 05-20-2024 52 mg, Intrauterine, Once UT N Procedure, Starting on Sat05/20/24 at 1530, For 1 dose lisdexamfetamine dimesylate 40 mg oral capsule (4 sources) Central Nervous System Stimulant Start: 05-08-2024 Vyvanse 40 MG capsule 05/08/2024 Active Completed/Discontinued Medications Medication Drug Class(es) Dates Sig (Normalized) Sig (Original) azithromycin 250 mg oral tablet (3 sources) Macrolide Antimicrobial Start: 03-13-2024 End: 03-25-2024 azithromycin (Zithromax Z-Jerel) 250 MG tablet Indications: Upper respiratory tract infection, unspecified type As directed 6 tablet 03/13/2024 03/25/2024 Discontinued Blood Glucose Monitoring Suppl (D-Care Glucometer) w/Device kit (6 sources) Start: 01-13-2024 End: 05-20-2024 Blood Glucose Monitoring Suppl (D-Care Glucometer) w/Device kit Indications: Gestational diabetes mellitus (GDM), antepartum, gestational diabetes method of control unspecified , Elevated glucose tolerance test 1 kit Daily Use four times daily to check FSBS. In the morning prior to breakfast & 1 hour after each meal for a total of 4times daily. 1 kit 01/13/2024 05/20/2024 Discontinued Start: 01-13-2024 End: 01-12-2025 [address] Monitoring Sup [address] (D-Care Glucometer) w/Device kit Indications: Gestational diabetes mellitus (GDM), antepartum, gestational diabetes method of control unspecified , Elevated glucose tolerance test 1 kit Daily Use four times daily to check FSBS. In the morning prior to breakfast & 1 hour after each meal for a total of 4times daily. 1 kit 01/13/2024 01/12/2025 Active clindamycin 300 mg oral capsule (3 sources) Lincosamide Antibacterial Start: 03-17-2024 End: 03-27-2024 take 1 capsule by mouth in the morning, then take 1 capsule by mouth in the evening, then take 1 capsule by mouth at bedtime clindamycin (Cleocin) 300 MG capsule Indications: Upper respiratory tract infection, unspecified type Take 1 capsule (300 mg) by mouth in the morning and 1 capsule (300 mg) in the evening and 1 capsule (300 mg) before bedtime. Do all this for 10 days. 40 capsule 03/17/2024 03/25/2024 Discontinued ibuprofen 600 mg oral tablet (3 sources) Nonsteroidal Anti-inflammatory Drug Start: 03-28-2024 End: 05-20-2024 ibuprofen 600 MG tablet 03/28/2024 05/20/2024 Discontinued isopropyl alcohol 0.7 ml/ml medicated pad (6 sources) Start: 01-13-2024 End: 05-20-2024 Alcohol Swabs (Alcohol Prep Pad) 70 % pads Indications: Gestational diabetes mellitus (GDM), antepartum, gestational diabetes method of control unspecified , Elevated glucose tolerance test Apply 1 Pad topically Daily Use four times daily to check FSBS. 150 each 3 01/13/2024 05/20/2024 Discontinued labetalol hydrochloride 100 mg oral tablet (6 sources) beta-Adrenergic Sven Start: 03-03-2024 End: 06-01-2024 take 1 tablet by mouth in the morning labetalol (Normodyne) 100 MG tablet Indications: induced hypertension, antepartum Take 1 tablet (100 mg) by mouth in the morning and 1 tablet (100 mg) before bedtime. 180 tablet 03/03/2024 05/20/2024 Discontinued magnesium oxide 400 mg oral tablet (3 sources) Start: 09-05-2023 End: 03-25-2024 take 1 tablet by mouth once daily magnesium oxide (Mag-Ox) 400 (240 Mg) MG tablet Take 400 mg by mouth Daily 09/05/2023 03/25/2024 Discontinued MV-Min-Fe Fum-FA-DHA ( 1 PO) (6 sources) End: 05-20-2024 MV-Min-Fe Fum-FA-DHA ( 1 PO) Take by mouth 05/20/2024 Discontinued MV-Min- Fe Fum-FA-DHA ( 1 PO) Take by mouth Active Problems Problem Classification Problem Date Documented Date Episodic/Chronic Cancer of cervix (5 sources) Low grade squamous intraepithelial lesion on cytologic smear of cervix (LGSIL); Translations: [High grade squamous intraepithelial lesion on cytologic smear of cervix (HGSIL)] Onset: 08-20-2022 Episodic Contraceptive and procreative management (1 source) Patient encounter status; Translations: [Encounter for insertion of intrauterine contraceptive device] 05-20-2024 Episodic Immunizations and screening for infectious disease (1 source) Encounter for screening for human papillomavirus (HPV); Translations: [ENC SCREENING HUMAN PAPILLOMAVIRUS] Onset: 06-16-2022 Episodic Other and delivery including normal (4 sources) care status; Translations: [Encounter for routine follow-up] 2024 Episodic Other screening for suspected conditions (not mental disorders or infectious disease) (4 sources) Encounter for screening for malignant neoplasm of cervix; Translations: [ENC SCREENING MALIG NEOPLASM CERV] Onset: 06-13-2022 Episodic Substance-related disorders (1 source) Nicotine dependence, other tobacco product, uncomplicated; Translations: [NICOTINE DEPEND OTH TOB PROD UNCOMP] Onset: 08-20-2022 Chronic Results Test Name Value Interpretation Reference Range Facility HCG ( test) Ql (U)o n 05-20-2024 Interpretation and review of laboratory results Normal [facility] Preg Test, Ur Negative Negative [facility] IUD Insertionon 05-20-2024 Bhavya Jimenez LPN 05/31/2024 2:10 PM IUD Insertion Performed by: Angie Vivar DO Authorized by: Angie Vivar DO Procedure: IUD insertion Consent obtained by patient, parent, or legal power of bankruptcy attorney - including discussion of procedure risks and benefits, patient questions answered, and patient education provided: yes risk: reasonably certain the patient is not Immediately prior to procedure a time out was called: no Pelvic exam performed: no Speculum placed in vagina: yes Cervix cleaned and prepped: yes Tenaculum/Allis/Ring Forceps applied to cervix: yes Anesthesia used: no IUD inserted without complications: yes OSM: 52 mg Levonorgestrel 20 MCG/DAY Patient tolerated procedure well: yes Inserted with ultrasound guidance: no Intended removal date: 5 years [facility] Urinalysis macro (dipstick) panel (U)on 03-25-2024 Bilirubin, UA Negative Negative - 4(70) +++ mg/dL [facility] Blood, UA Positive Negative - 50 Ravi/mcL [facility] Comment on above: trace-intact Clarity, UA Clear [facility] Color, UA Yellow [facility] Glucose, UA Negative Negative - 2000(110) ++++ mg/dL [facility] Interpretation and review of laboratory results Abnormal [facility] Ketones, UA Negative Negative - 160(16) ++++ mg/dL [facility] Leukocytes, UA Trace Negative - 500+++ Brea/mcL [facility] Nitrite, UA Negative Negative - Positive [facility] pH, UA 6.5 5 - 9 [facility] Protein, UA Negative Negative - 2000(20) ++++ mg/dL [facility] Spec Grav, UA 1.015 1 - 1.03 [facility] Urobilinogen, UA 0.2 0.2 - 12 mg/dL [facility] CBC AUTO DIFFon 08-23-2022 BASO # 0.1 103/ul Normal 0.0-0.1 [place] Comment on above: Performed By: #### C BC #### [facility] [address] [address] [address] Car Lozada Basophils/100 WBC (Bld) 0.5 % Normal 0.2-2.0 [place] Comment on above: Performed By: #### C BC #### [facility] [address] [address] [address] Car Lozada EO # 0.6 103/ul Normal 0.0-0.7 [place] Comment on above: Performed By: #### C BC #### [facility] [address] [address] [address] Car Lozada Eosinophils/100 WBC (Bld) 5.9 % Normal 0.9-7.0 [place] Comment on above: Performed By: #### C BC #### [facility] [address] [place] [address] Dr. Car Lozada Erythrocyte distribution width (RBC) [Ratio] 12.6 % Normal 11.0-15.0 [place] Comment on above: Performed By: #### C BC #### [facility] [address] [place] [address] Dr. Car Lozada Hematocrit (Bld) [Volume fraction] 42.0 % Normal 36.0-48.0 [place] Comment on above: Performed By: #### C BC #### [facility] [address] [place] [address] Dr. Car Lozada Hemoglobin (Bld) [Mass/Vol] 14.1 g/dL Normal 12.0-16.0 [place] Comment on above: Performed By: #### C BC #### [facility] [address] [place] [address] Dr. Car Lozada IG # 0.04 10e3/ul Critically high 0.00-0.03 [facility] Comment on above: Performed By: #### C BC #### [facility] [address] [place] [address] Dr. Car Lozada IG % 0.4 % Normal 0.0-0.5 [place] Comment on above: Performed By: #### C BC #### [facility] [address] [place] [address] Dr. Car Lozada LYMPH # 3.6 103/ul Normal 1.2-3.8 [place] Comment on above: Performed By: #### C BC #### [facility] [address] [place] [address] Dr. Car Lozada Lymphocytes/100 WBC (Bld) 34.7 % Normal 20.5-60.0 [place] Comment on above: Performed By: #### C BC #### [facility] [address] [place] [address] Dr. Car Lozada MANUAL DIFF REQ NO Normal [facility] Comment on above: Performed By: #### C BC #### [facility] [address] [address] [address] Car Lozada MCH (RBC) [Entitic mass] 31.2 pg Normal 26.7-34.0 [place] Comment on above: Performed By: #### C BC #### [facility] [address] [place] [address] Dr. Car Lozada MCHC (RBC) [Mass/Vol] 33.6 g/dL Normal 29.9-35.2 [place] Comment on above: Performed By: #### C BC #### [facility] [address] [place] [address] Dr. Car Lozada MCV (RBC) [Entitic vol] 92.9 fL Normal 81.0-99.0 [place] Comment on above: Performed By: #### C BC #### [facility] [address] [place] [address] Dr. Car Lozdaa MONO # 0.9 103/ul Critically high 0.3-0.8 [facility] Comment on above: Performed By: #### C BC #### [facility] [address] [place] [address] Dr. Car Lozada Monocytes/100 WBC (Bld) 8.3 % Normal 1.7-12.0 [place] Comment on above: Performed By: #### C BC #### [facility] [address] [place] [address] Dr. Car Lozada NEUT # 5.2 103/ul Normal 1.4-6.[address] [facility] Comment on above: Performed By: #### C BC #### [facility] [address] [place] [address] Dr. Car Lozada Neutrophils/100 WBC (Bld) 50.2 % Normal 43.0-75.[address] [facility] Comment on above: Performed By: #### C BC #### [facility] [address] [place] [address] Dr. Car Lozada Platelet mean volume (Bld) [Entitic vol] 10.0 fL Normal 9.5-13.[address] [facility] Comment on above: Performed By: #### C BC #### [facility] [address] [address] [address] Car Lozada PLT 251 103/ul Normal 150-450 [place] Comment on above: Performed By: #### C BC #### [facility] [address] [id number] Car Lozada RBC 4.52 106/ul Normal 4.20-5.40 [place] Comment on above: Performed By: #### C BC #### [facility] [address] [address] [address] Car Lozada WBC 10.3 103/ul Normal 4.0-11.0 [place] Comment on above: Performed By: #### C BC #### [facility] [address] [place] [address] Dr. Car Lozada PREG QUANT HCGon 08-23-2022 HCG QUANT <1 Normal [place] Comment on above: Performed By: #### P REGQNT #### [facility] [address] [place] [address] Dr. Car Lozada HCG RANGE SEE BELOW Normal [facility] Comment on above: Result Comment: 5-50 0.2-1 WEEK 50-500 1-2 WEEKS 100-5,000 2-3 WEEKS 500-10,000 3-4 WEEKS 1,000-50,000 4-5 WEEKS 10,000-100,000 5-6 WEEKS 15,000-200,000 6-8 WEEKS 10,000-100,000 2-3 MONTHS Performed By: #### P REGQNT #### [facility] [address] [place] [address] Dr. Car Lozada XR CHEST 2 Von [...] JOSÉ MIGUEL LIMON Date: 2022-08-16 10:17 Normal [place] PAP ACOG PANEL 2: 21 to 29on 06-25-2022 . . Normal [place] Comment on above: Performed By: #### [id number] #### [facility] [address] [place] [address] Dr. Car Lozada Age Gdln ACOG Testing 21-29 Normal [place] Comment on above: Performed By: #### [id number] #### [facility] [address] [place] [address] Dr. Car Lozada DIAGNOSIS: Comment Abnormal [place] Comment on above: Result Comment: EPIT HELIAL CELL ABNORMALITY. LOW GRADE SQUAMOUS INTRAEPITHELIAL LESION (LSIL). Performed By: #### [id number] #### [facility] [address] [place] [address] Dr. Car Lozada Electronically signed by: Comment Normal [place] Comment on above: Result Comment: Phyllis Vital MD, Pathologist Performed By: #### [id number] #### [facility] [address] [place] [address] Dr. Car Lozada Methodology: Comment Normal [place] Comment on above: Result Comment: This liquid based ThinPrep(R) pap test was screened with the use of an image guided system. Performed By: #### [id number] #### [facility] [address] [place] [address] Dr. Car Lozada Note: Comment Normal [place] Comment on above: Result Comment: The Pap smear is a screening test designed to aid in the detection of premalignant and malignant conditions of the uterine cervix. It is not a diagnostic procedure and should not be used as the sole means of detecting cervical cancer. Both false-positive and false-negative reports do occur. . Performed By: #### [id number] #### [facility] [address] [place] [address] Dr. Car Lozada Pathologist Provided ICD10 Comment Normal [place] Comment on above: Result Comment: [id number] Performed By: #### [id number] #### [facility] [address] [address] [address] Car Lozada Performed by: Comment Normal [facility] Comment on above: Result Comment: Sidney Masters, Facilities Plant Engineer (ASCP) Performed By: #### [id number] #### [facility] [address] [address] [address] Car Lozada Recommendation: Comment Abnormal [facility] Comment on above: Result Comment: Sugg est follow up as clinically appropriate. Performed By: #### [id number] #### [facility] [address] [address] [address] Car Lozada Reflex Criteria: Comment Normal [facility] Comment on above: Result Comment: The HPV DNA reflex criteria were not met with this specimen result therefore, no HPV testing was performed. . Performed By: #### [id number] #### [facility] [address] [address] [address] Car Lozada Specimen adequacy: Comment Normal [facility] Comment on above: Result Comment: Sati sfactory for evaluation. Endocervical and/or squamous metaplastic cells (endocervical component) are present. Performed By: #### [id number] #### [facility] [address] [address] [address] Car Lozada Body fluid albumin measureme nt (mass/volume)Ordered By: Dom Paulino on 12-22-2021 Albumin (Body fld) [Mass/Vol] 3.4 g/dL 3.2-5.5 [facility] Cholesterol [Mass/volume] in Serum or PlasmaOrdered By: Dom Paulino on 12-22-2021 Cholesterol [Mass/Vol] 228 mg/dL 140-200 [facility] Comment on above: Chol less than 200 m g/dl low risk Chol 201-239 mg/dl borderline risk Chol 240 mg/dl and greater high risk Cholesterol in LDL Calc [Mas s/Vol]Ordered By: Dom Paulino on 12-22-2021 Cholesterol in LDL [Mass/Vol] 136 mg/dL 0-100 [facility] Comment on above: LDL ATP III CLASSIFI CATION LDL less than 100 mg/dL Optimal LDL 100-129 mg/dL Near or above optimal LDL 130-159 mg/dL Borderline high LDL 160-189 mg/dL High LDL greater than 189 mg/dL Very high Cholesterol in VLDL Calc [Ma ss/Vol]Ordered By: Dom Paulino on 12-22-2021 Cholesterol in VLDL [Mass/Vol] 19 mg/dL [facility] Comprehensive Metabolic Empo n 12-22-2021 Albumin [Mass/Vol] 3.4 g/dL Normal 3.2-5.5 [facility] Comment on above: Performed By: #### E BS CMP, EBS LIPID #### [facility] [address] [place] [address] [place] Albumin/Globulin [Mass ratio] 1.2 {ratio} Normal [facility] Comment on above: Performed By: #### E BS CMP, EBS LIPID #### [facility] [address] [id number] [place] ALP [Catalytic activity/Vol] 48 U/L Normal 32-92 [facility] Comment on above: Performed By: #### E BS CMP, EBS LIPID #### [facility] [address] [id number] [place] ALT [Catalytic activity/Vol] 14 U/L Normal 10-60 [facility] Comment on above: Performed By: #### E BS CMP, EBS LIPID #### [facility] [address] [place] [address] [place] AST [Catalytic activity/Vol] 15 U/L Normal 10-42 [facility] Comment on above: Performed By: #### E BS CMP, EBS LIPID #### [facility] [address] [id number] [place] Bilirubin [Mass/Vol] 0.3 mg/dL Normal 0.3-1.2 [facility] Comment on above: Performed By: #### E BS CMP, EBS LIPID #### [facility] [address] [id number] [place] Calcium [Mass/Vol] 9.3 mg/dL Normal 8.2-10.2 [facility] Comment on above: Performed By: #### E BS CMP, EBS LIPID #### [facility] [address] [place] [address] [place] Chloride [Moles/Vol] 101 mmol/L Normal 95-114 [facility] Comment on above: Performed By: #### E BS CMP, EBS LIPID #### [facility] [address] CO2 [Moles/Vol] 23.8 mmol/L Normal 22.0-30.0 [facility] Comment on above: Performed By: #### E BS CMP, EBS LIPID #### [facility] [address] Creatinine [Mass/Vol] 0.79 mg/dL Normal 0.44-1.03 [facility] Comment on above: Performed By: #### E BS CMP, EBS LIPID #### [facility] [address] [place] [address] Estimated GFR ( Aleena > [address] [facility] Comment on above: Result Comment: GFR estimated reference range: According to KDOQI guidelines, <60 ml/min/1.73m2 is sufficient to diagnose a patient with chronic kidney disease. Performed By: #### E BS CMP, EBS LIPID #### [facility] [address] [place] [address] Estimated GFR (Non- Am > [address] [facility] Comment on above: Performed By: #### E BS CMP, EBS LIPID #### [facility] [address] [place] [address] [place] Globulin (S) [Mass/Vol] 2.8 g/dL Normal [facility] Comment on above: Performed By: #### E BS CMP, EBS LIPID #### [facility] [address] [place] [address] [place] Glucose [Mass/Vol] 76 mg/dL Normal 70-100 [facility] Comment on above: Performed By: #### E BS CMP, EBS LIPID #### [facility] [address] Potassium [Moles/Vol] 3.8 mmol/L Normal 3.5-5.1 [facility] Comment on above: Performed By: #### E BS CMP, EBS LIPID #### [facility] [address] [place] [address] [place] Protein [Mass/Vol] 6.2 g/dL Normal 6.1-7.9 [facility] Comment on above: Performed By: #### E BS CMP, EBS LIPID #### [facility] [address] [place] [address] [place] Sodium [Moles/Vol] 136 mmol/L Normal 136-146 [facility] Comment on above: Performed By: #### E BS CMP, EBS LIPID #### [facility] [address] [place] [address] [place] Urea nitrogen [Mass/Vol] 10 mg/dL Normal 9-23 [facility] Comment on above: Performed By: #### E BS CMP, EBS LIPID #### [facility] [address] [place] [address] [place] Creatinine and Glomerular fi ltration rate.predicted panel (S/P/Bld)Ordered By: Dom Paulino on 12-22-2021 Creatinine [Mass/Vol] 0.79 mg/dL 0.44-1.03 [facility] Estimated glomerular filtrat ion rate (GFR) non- AmericanOrdered By: Dom Paulino on 12-22-2021 GFR/1.73 sq M.predicted among non-blacks MDRD (S/P/Bld) [Vol rate/Area] > 60 mL/Min [facility] Globulin Calc (S) [Mass/Vol] Ordered By: Dom Paulino on 12-22-2021 Globulin (S) [Mass/Vol] 2.8 g/dL [facility] - Chemistry and C hemistry - challengeOrdered By: Dom Paulino on 12-22-2021 Glucose [Mass/Vol] 76 mg/dL 70-100 [facility] Lipid Profileon 12-22-2021 Cholesterol [Mass/Vol] 228 mg/dL High 140-200 [facility] Comment on above: Result Comment: Chol less than 200 mg/dl low risk Chol 201-239 mg/dl borderline risk Chol 240 mg/dl and greater high risk Performed By: #### E BS CMP, EBS LIPID #### [facility] [address] Cholesterol in HDL [Mass/Vol] 73 mg/dL Normal 35-85 [facility] Comment on above: Result Comment: HDL CHOL ATP-III CLASSIFICATION Cardiovascular Risk HDL > or equal to 60 mg/dL LOW HDL < 40 mg/dL HIGH Performed By: #### E BS CMP, EBS LIPID #### [address] Cholesterol.total/Chol esterol in HDL [Mass ratio] 3.1 {ratio} Normal <5.0 [facility] Comment on above: Result Comment: PERF ORMED BY: [place] [address] PATHOLOGIST FACE WORKER DENYS WOO M.D. Performed By: #### E BS CMP, EBS LIPID #### [address] LDL Cholesterol,Calculated 136 mg/dL High 0-100 [facility] Comment on above: Result Comment: LDL ATP III CLASSIFICATION LDL less than 100 mg/dL Optimal LDL 100-129 mg/dL Near or above optimal LDL 130-159 mg/dL Borderline high LDL 160-189 mg/dL High LDL greater than 189 mg/dL Very high Performed By: #### E BS CMP, EBS LIPID #### [address] Triglyceride w/Reflex 95 mg/dL Normal 35-149 [facility] Comment on above: Result Comment: TRIG ATP III CLASSIFICATION TRIG less than 150 mg/dL Normal TRIG 150-199 mg/dL Borderline high TRIG 200-500 mg/dL High TRIG greater than 500 mg/dL Very high Standard traceable to the Center for Disease Conrtrol and Prevention (CDC) test method. Performed By: #### E BS CMP, EBS LIPID #### [address] VLDL CHOLESTEROL 19 mg/dL Normal [facility] Comment on above: Performed By: #### E BS CMP, EBS LIPID #### [address] No Panel InformationOrdered By: Dom Paulino on 12-22-2021 Estimated GFR () > 60 mL/Min [facility] Comment on above: GFR estimated refere nce range: According to KDOQI guidelines, <60 ml/min/1.73m2 is sufficient to diagnose a patient with chronic kidney disease. Pharmacy Creatinine Clearance (Chem N/A [facility] Triglycerides Reflex 95 mg/dL 35-149 [facility] Comment on above: TRIG ATP III CLASSIF ICATION TRIG less than 150 mg/dL Normal TRIG 150-199 mg/dL Borderline high TRIG 200-500 mg/dL High TRIG greater than 500 mg/dL Very high Standard traceable to the Center for Disease Conrtrol and Prevention (CDC) test method. Protein [Mass/volume] in Ser um or PlasmaOrdered By: Dom Paulino on 12-22-2021 Protein [Mass/Vol] 6.2 g/dL 6.1-7.9 [facility] Serum or plasma alanine pan otransferase measurement without P-5'-P (enzymatic activiOrdered By: Dom Paulino on 12-22-2021 ALT No additional P-5'-P [Catalytic activity/Vol] 14 U/L 10-60 [facility] Serum or plasma albumin/glob ulin mass ratioOrdered By: Dom Paulino on 12-22-2021 Albumin/Globulin [Mass ratio] 1.2 {ratio} [facility] Serum or plasma alkaline nina sphatase measurement (enzymatic activity/volume)Ordered By: Dom Paulino on 12-22-2021 ALP [Catalytic activity/Vol] 48 U/L 32-92 [facility] Serum or plasma aspartate am inotransferase measurement (enzymatic activity/volume)Ordered By: Dom Paulino on 12-22-2021 AST [Catalytic activity/Vol] 15 U/L 10-42 [facility] Serum or plasma calcium dexter urement (mass/volume)Ordered By: Dom Paulino on 12-22-2021 Calcium [Mass/Vol] 9.3 mg/dL 8.2-10.2 [facility] Serum or plasma chloride glenis surement (moles/volume)Ordered By: Dom Paulino on 12-22-2021 Chloride [Moles/Vol] 101 mmol/L 95-114 [facility] Serum or plasma high density lipoprotein (HDL) cholesterol measurementOrdered By: Dom Paulino on 12-22-2021 Cholesterol in HDL [Mass/Vol] 73 mg/dL 35-85 [facility] Comment on above: HDL CHOL ATP-III CLA SSIFICATION Cardiovascular Risk HDL > or equal to 60 mg/dL LOW HDL < 40 mg/dL HIGH Serum or plasma potassium me asurement (moles/volume)Ordered By: Dom Paulino on 12-22-2021 Potassium [Moles/Vol] 3.8 mmol/L 3.5-5.1 [facility] Serum or plasma sodium measu rement (moles/volume)Ordered By: Dom Paulino on 12-22-2021 Sodium [Moles/Vol] 136 mmol/L 136-146 [facility] Serum or plasma total biliru bin measurement (mass/volume)Ordered By: Dom Paulino on 12-22-2021 Bilirubin [Mass/Vol] 0.3 mg/dL 0.3-1.2 [facility] Serum or plasma total carbon dioxide measurement (moles/volume)Ordered By: Dom Paulino on 12-22-2021 CO2 [Moles/Vol] 23.8 mmol/L 22.0-30.0 [facility] Serum or plasma total choles terol/high density lipoprotein (HDL) cholesterol mass ratOrdered By: Dom Paulino on 12-22-2021 Cholesterol.total/Chol esterol in HDL [Mass ratio] 3.1 {ratio} [facility] Serum or plasma urea nitroge n measurement (mass/volume)Ordered By: Dom Paulino on 12-22-2021 Urea nitrogen [Mass/Vol] 10 mg/dL 9-23 [facility] Outside Recordson 09-13-2021 Outside Records [id number]# 1.00OTGTIFF [facility] Outside Recordson 08-28-2021 Outside Records [id number] #1.00OTGTIFF [facility] Outside Records [id number] #1.00OTGTIFF [facility] Consent Formson 07-14-2021 Consent Forms [id number] #1.00OTGTIFF [facility] Progress Note - Nurseon Progress Note - Nurse Antigen test ordered, test resulted positive, patient informed of positive result. In house test ordered, patient informed and swabbed, specimen sent to lab. [Electronically Signed on: 07/11/2021 16:04 EST] Kamini Tovar RN [Verified on: 07/11/2021 16:04 EST] Kamini Tovar RN [facility] Progress Note - Nurse Antigen test ordered, test resulted negative, patient informed of negative result. [Electronically Signed on: 07/11/2021 11:45 EST] Kamini Tovar RN [Verified on: 07/11/2021 11:45 EST] Kamini Tovar RN [facility] Measles (Rubeola) Imon 11-28 Measles (Rubeola) Im 3.49 Normal >1.09 [facility] Comment on above: Result Comment: Interpretation: IMMUNE Reference Range: <0.91 Not Immune 0.91-1.09 Equivocal >1.09 Immune Performed By: #### M EI, JUDY, VZI, TSPOT, MEÑO #### [employer] [address] [place] [address] Wharf Attendant: Maury Watts MD Mumps,Immun,Abon 11-28-2020 Mumps,Immun,Ab 1.48 Normal >1.09 [facility] Comment on above: Result Comment: Interpretation: IMMUNE Reference Range: <0.91 Not Immune 0.91-1.09 Equivocal >1.09 Immune Performed By: #### M EI, JUDY, VZI, TSPOT, MEÑO #### [facility] [place] [address] Wharf Attendant: Maury Watst MD T-Spoton 11-28-2020 T-Spot. TB Test Normal [facility] Comment on above: Result Comment: [facility] [employer] [address] [place] [id number] (NOTE) T-SPOT.TB Test Results --------- T-SPOT TB [...] M EI, JUDY, VZI, TSPOT, MEÑO #### [facility] [place] [address] Wharf Attendant: Maury Watts MD VZ Immunityon 11-28-2020 VZ Immunity 2.04 Normal >1.09 [facility] Comment on above: Result Comment: Interpretation: IMMUNE Reference Range: <0.91 Not Immune 0.91-1.09 Equivocal >1.09 Immune Performed By: #### M EI, JUDY, VZI, TSPOT, MEÑO #### [employer] [address] [place] [address] Wharf Attendant: Maury Watts MD Rubella Ab, IgGon 11-25-2020 Rubella Ab, IgG 150.4 IU/mL Normal [facility] Comment on above: Result Comment: REFERENCE RANGE: <5.0 NON-REACTIVE (non-immune) 5.0 TO 9.9 EQUIVOCAL >=10.0 REACTIVE (immune) Performed By: #### M EI, JUDY, VZI, TSPOT, MEÑO #### [employer] [facility] [place] [address] Wharf Attendant: Maury Watts MD Rubella antibody, IgGOrdered By: Morales Gardner on 11-25-2020 Rubella virus IgG Ql (S) 150.4 IU/mL [facility]: Comment on above: REFERENCE RANGE: <5.0 NON-REACTIVE (non-immune) 5.0 TO 9.9 EQUIVOCAL >=10.0 REACTIVE (immune) [employer] Phone: Vital Signs Date Time Vital Sign Value Performing Clinician Shania haro 05-20-2024 16:11-0500 Body mass index (BMI) [Ratio] 36 kg/m2 [employer] Work Phone: [facility] [employer] 05-20-2024 16:11-0500 Body weight 89.27 kg [employer] Work Phone: [facility] [employer] 05-20-2024 16:11-0500 Diastolic blood pressure 62 mm[Hg] [employer] Work Phone: [facility] 05-20-2024 16:11-0500 Systolic blood pressure 100 mm[Hg] [employer] Work Phone: [facility] 2024 09:48-0500 Body mass index (BMI) [Ratio] 35.48 kg/m2 Angie Cb DO Work Phone: [facility] 2024 09:48-0500 Body weight 88 kg Angie Cb DO Work Phone: [facility] 2024 09:48-0500 Diastolic blood pressure 72 mm[Hg] Angie Cb DO Work Phone: [facility] 2024 09:48-0500 Systolic blood pressure 122 mm[Hg] Angie Cb DO Work Phone: [facility] 03-25-2024 11:19-0400 Body mass index (BMI) [Ratio] 40.79 kg/m2 Angie Cb DO Work Phone: [facility] 03-25-2024 11:19-0400 Body weight 101.15 kg Angie Cb DO Work Phone: [facility] 03-25-2024 11:19-0400 Diastolic blood pressure 82 mm[Hg] Angie Cb DO Work Phone: [facility] 03-25-2024 11:19-0400 Systolic blood pressure 132 mm[Hg] Angie Cb DO Work Phone: [facility] Healthcare Encounters Encounter Date Encounter Type Care Provider Facility Start: 06-17-2024 End: 06-17-2024 ambulatory ANGIE CB Not Available Start: 06-17-2024 End: 06-17-2024 Bamboo flowsheet Angie Cb DO Work Phone: [facility] Start: 06-17-2024 End: 06-17-2024 Bamboo flowsheet Angie Cb DO Work Phone: [facility] Start: 05-20-2024 End: 05-20-2024 ambulatory ANGIE CB Not Available Start: 05-20-2024 End: 05-20-2024 Patient encounter procedure Angie Cb DO Work Phone: [facility] Comment on above: Encounter for insert ion of Mirena IUD Start: 2024 End: 2024 ambulatory ANGIE CB Not Available Start: 2024 End: 2024 care visit Angie Cb DO Work Phone: [facility] Comment on above: 6 weeks f ollow-up; S/P section Start: 04-02-2024 End: 04-02-2024 ambulatory VANESA ALISON Not Available Start: 03-25-2024 End: 03-25-2024 Bamboo flowsheet Angie Cb DO Work Phone: [facility] Start: 03-25-2024 End: 03-25-2024 Bamboo flowsheet Angie Cb DO Work Phone: [facility] Start: 03-25-2024 End: 03-25-2024 ambulatory ANGIE CB Not Available Start: 03-25-2024 End: 03-25-2024 flow sheet Angie Cb DO Work Phone: [facility] Comment on above: Third trimester preg bradly Start: 03-17-2024 End: 03-17-2024 ambulatory ANGIE CB Not Available Start: 03-03-2024 End: 03-03-2024 ambulatory VANESA ALISON Not Available Start: 02-18-2024 End: 02-18-2024 ambulatory ANGIE CB Not Available Start: 02-03-2024 End: 02-03-2024 ambulatory VANESA ALISON Not Available Start: 01-20-2024 End: 01-20-2024 ambulatory ANGIE CB Not Available Start: 12-31-2023 End: 12-31-2023 ambulatory ANGIE CB Not Available Start: 12-03-2023 End: 12-03-2023 ambulatory ANGIE CB Not Available Start: 11-04-2023 End: 11-04-2023 ambulatory ANGIE CB Not Available Start: 10-07-2023 End: 10-07-2023 ambulatory ANGIE CB Not Available Start: 09-05-2023 End: 09-05-2023 ambulatory ANGIE CB Not Available Start: 08-23-2022 End: 08-23-[address] ANGIE VIVAR . Facility: Start: 08-20-2022 Encounter for preprocedural respiratory examination DR ANGIE VIVAR . [place] Start: 08-16-2022 End: 08-17-[address] ANGIE VIVAR . Facility:[facility] Start: 08-16-2022 End: 08-17-2022 Encounter for preprocedural respiratory examination DR ANGIE VIVAR . Facility:[facility] Start: 06-13-2022 End: 06-13-[address] ANGIE VIVAR . Facility: Start: 04-26-2022 End: 04-27-2022 ambulatory Bhavya Estrada Facility:[facility] Start: 12-22-2021 End: 12-22-2021 Departed Referred [facility] [address] Start: 07-13-2021 End: 07-13-2021 ambulatory [facility] Facility:[facility] Start: 07-12-2021 End: 07-12-2021 ambulatory [facility] Facility:[facility] Start: 11-25-2020 End: 11-26-2020 ambulatory MORALES GARDNER [facility] Start: 11-25-2020 End: 11-25-2020 Subsequent hospital visit by physician [facility] Laboratory Procedures Date Procedure Procedure Detail Performing Clinician Start: 05-20-2024 Urine test visual color cmprsn meths Angie Cb DO Work Phone: Start: 05-20-2024 IUD INSERTION Angie Voz io DO Work Phone: Start: 03-25-2024 Urnls dip stick/tabl et rgnt non-auto w/o micrscp Angie Cb DO Work Phone: Start: 05-21-2023 Microscopic observat ion [Identifier] in Cervix by Cyto stain Angie Cb DO Work Phone: Start: 11-25-2020 Antibody rubella Omkar Gardner MD Work Phone: H/O: section S/P sectio n Angie Vivar DO Work Phone: Plan of Treatment Date Care Activity Detail Author Start: 05-21-2028 Screening for malign ant neoplasm of cervix [facility] Start: 06-17-2024 End: 06-17-2024 Patient encounter procedure 06/17/2024 2:30 PM EST Office Visit [facility] [address] [place] [id number] Angie Vivar, DO [address] [place] [address] [facility] Start: 05-26-2024 End: 05-26-2024 Patient encounter procedure 05/26/2024 10:00 AM EST Office Visit [facility] [address] [place] [id number] Angie Vivar, DO [address] [place] [address] [facility] Start: 05-20-2024 End: 05-20-2024 Patient encounter procedure 05/20/2024 3:30 PM EST Procedure Visit [facility] [address] [place] [id number] Angie Vivar, DO [address] [place] [address] [facility] Start: 03-08-2024 Influenza vaccination Influenza Vacc ine (#1) [facility] Start: 03-08-2021 Influenza vaccination Flu vacc ine (Season Ended) [employer] Phone: Start: 2005 COVID-19 Vaccine (1) COVID-19 Vaccin e (1) [employer] Phone: End: 11-25-2020 Mumps Antibody, IgG Mumps Antibody, IgG Lab Routine Once for 1 Occurrences starting 11/25/2020 until 11/25/2020 [employer] Phone: Comment on above: Once for 1 Occurrenc es starting 11/25/2020 until 11/25/2020 Mumps Antibody, IgG Mumps Antibo dy, IgG Lab Routine 11/25/2020 3:18 PM EDT [employer] Phone: End: 11-25-2020 Rubeola Antibody, IgG Rubeola Antibody, IgG Lab Routine Once for 1 Occurrences starting 11/25/2020 until 11/25/2020 [employer] Phone: Comment on above: Once for 1 Occurrenc es starting 11/25/2020 until 11/25/2020 Rubeola Antibody, IgG Rubeola An tibody, IgG Lab Routine 11/25/2020 3:18 PM EDT [employer] Phone: End: 11-25-2020 Tb antigen response gamma interferon t-cell susp T-Spot TB Test Lab Routine Once for 1 Occurrences starting 11/25/2020 until 11/25/2020 [employer] Phone: Comment on above: Once for 1 Occurrenc es starting 11/25/2020 until 11/25/2020 Tb antigen response gamma interferon t-cell susp T-Spot TB Test Lab Routine 11/25/2020 3:18 PM EDT [employer] Phone: End: 11-25-2020 Varicella Zoster Antibody, IgG Varicella Zoster Antibody, IgG Lab Routine Once for 1 Occurrences starting 11/25/2020 until 11/25/2020 [employer] Phone: Comment on above: Once for 1 Occurrenc es starting 11/25/2020 until 11/25/2020 Varicella Zoster Antibody, IgG Varicella Zoster Antibody, IgG Lab Routine 11/25/2020 3:18 PM EDT [employer] Phone: Immunizations Immunization Date Immunization Notes Care Provider Fa mathew 04-13-2021 influenza virus vacc ine, unspecified formulation Angie Vivar DO Work Phone: [facility] Payers Date Payer Category Payer [employer] Blue [employer] BCBS Memb er Subscriber Plan / Payer (Effective 2022-Present) Name: Marisa Adan Relation to Subscriber: Self Name: Marisa Adan Payer ID: Not on file Type: Not on file Address: [id number] 2022 Unknown BCBS BCBS xxxxxx [id number] 2022-Present [phone] [address] [place] [address] [id number] 2020 Unknown [id number] 2020 Unknown [id number] 1993 Unknown [id number] 2.16.840.1.373143.3.579.2. 718 1993 Unknown [id number] 2.16.840.1.329397.3.579.2. 593 1993 Unknown [id number] 2.16.840.1.171945.3.579.2. 593 1993 Unknown [id number] 2.16.840.1.370668.3.579.2. 593 1993 Unknown [id number] 2.16.840.1.162095.3.579.2. 1259 1993 Unknown [id number] 2.16.840.1.961357.3.579.2. 1259 1993 Unknown [id number] 2.16.840.1.669738.3.579.2. 1259 1993 Unknown [id number] 2.16.840.1.254106.3.579.2. 1259 1993 Unknown [id number] 2.16.840.1.827505.3.579.2. 9 1993 Unknown [id number] 2.16.840.1.898122.3.579.2. 9 1993 Unknown [id number] 2.16.840.1.229995.3.579.2. 1258 1993 Unknown [id number] 2.16.840.1.059249.3.579.2. 9 1993 Unknown [id number] 2.16.840.1.493380.3.579.2. 1258 1993 Unknown [id number] 2.16.840.1.762548.3.579.2. 9 1993 Unknown [id number] 2.16.840.1.589275.3.579.2. 1258 1993 Unknown [id number] 2.16.840.1.081467.3.579.2. 9 1993 Unknown [id number] 2.16.840.1.099369.3.579.2. 9 1993 Unknown [id number] 2.16.840.1.167226.3.579.2. 9 1993 Unknown [id number] 2.16.840.1.751149.3.579.2. 9 1959 Unknown [id number] Self-pay Self Pay [id number] Social History Date Type Detail Facility [facility] Work Phone: Start: 1995 Sex Assigned At Not on file [facility] [employer] Work Phone: Start: 1995 Sex Assigned At Female [facility] Start: 01-13-2023 Tobacco [facility] Start: 2024 End: 05-20-2024 Alcoholic beverage intake Current drinker of alcohol (finding) [facility] Start: 05-09-2023 End: 04-02-2024 History of Social function [facility] Start: 05-09-2023 End: 04-02-2024 Tobacco use panel [facility] Start: 01-13-2023 Alcohol Comment 1 or 2 drinks on typical day ; Caffeine: 1-2 cups/day coffee [facility] Start: 07-20-2023 [facility] History of Present illness Narrative 05-20-2024 Bhavya Jimenez, HEAD TURNING MACHINE OPERATOR - 05/20/2024 3:30 PM EST Note Date & Type Note Facility 05-20-2024 History of Presen t illness Narrative Associated Order(s): IUD Insertion Post-Procedure Diagnose(s): Encounter for insertion of Mirena IUD Reason for Appointment: Patient ID: Marisa Adan is a 29 y.o. female who presents for Contraception (Mirena Insert) Patient presents today for a IUD Insertion appointment. MEDICATIONS Current Outpatient Medications Medication Instructions clonazePAM (KlonoPIN) 0.5 MG tablet Vyvanse 40 MG capsule ALLERGIES Allergies Allergen Reactions Penicillins Hives Amoxicillin SURGICAL HISTORY Past Surgical History: Procedure Laterality Date CERVICAL BIOPSY W/ LOOP ELECTRODE EXCISION 08/01/2022 SECTION, LOW TRANSVERSE 03/25/2024 IUD REMOVAL 05/09/2018 IUD: Angie PAP SMEAR >1 year ago WISDOM TOOTH EXTRACTION teeth REVIEW OF SYSTEMS Review of Systems: Review of Systems Constitutional: Negative. HENT: Negative. Eyes: Negative. Respiratory: Negative. Cardiovascular: Negative. Gastrointestinal: Negative. Genitourinary: Negative. Musculoskeletal: Negative. Skin: Negative. Neurological: Negative. All other systems reviewed and are negative. Hematological: Negative. Endocrine: Negative. Allergic/Immunologic: Negative. OBJECTIVE Objective: Physical Exam Constitutional: Appearance: Normal appearance. She is well-developed. Genitourinary: Vulva normal. Cardiovascular: Rate and Rhythm: Normal rate and regular rhythm. Pulmonary: Effort: Pulmonary effort is normal. Breath sounds: Normal breath sounds. Abdominal: General: Bowel sounds are normal. There is no distension. Palpations: Abdomen is soft. Tenderness: There is no abdominal tenderness. There is no guarding or rebound. Musculoskeletal: General: No swelling. Normal range of motion. Right lower leg: No edema. Left lower leg: No edema. Neurological: Mental Status: She is alert and oriented to person, place, and time. Skin: General: Skin is warm and dry. Psychiatric: Mood and Affect: Mood normal. Behavior: Behavior normal. Vitals and nursing note reviewed. Exam conducted with a new media strategist present. Vitals: Estimated body mass index is 36 kg/m as calculated from the following: Height as of 01/15/23: 5' 2 . Weight as of this encounter: 196 lb 12.8 oz. BP: 100/62 Patient's last menstrual period was 05/03/2024. ASSESSMENT & PLAN Assessment/Plan Encounter Diagnosis: ICD-10-CM 1. Encounter for insertion of Mirena IUD Z30.430 Levonorgestrel intrauterine device 52 mg POCT , urine manually resulted IUD Insertion Performed by: Angie Vivar DO Authorized by: Angie Vivar DO Procedure: IUD insertion Consent obtained by patient, parent, or legal power of bankruptcy attorney - including discussion of procedure risks and benefits, patient questions answered, and patient education provided: yes risk: reasonably certain the patient is not Immediately prior to procedure a time out was called: no Pelvic exam performed: no Speculum placed in vagina: yes Cervix cleaned and prepped: yes Tenaculum/Allis/Ring Forceps applied to cervix: yes Anesthesia used: no IUD inserted without complications: yes OSM: 52 mg Levonorgestrel 20 MCG/DAY Patient tolerated procedure well: yes Inserted with ultrasound guidance: no Intended removal date: 5 years Documented by Bhavya Jimenez LPN on behalf of: Angie Vivar DO documented in this encounter [facility] History of Present illness Narrative 2024 Bhavya Jimenez LPN - 2024 9:20 AM EST Note Date & Type Note Facility 2024 History of Presen t illness Narrative Reason for Appointment: Patient ID: Marisa Adan is a 29 y.o. female who presents for Care (Pt present today for 6 week post visit. Pt delivered on 03/25/2024 by C/S.) Patient presents today for Post Follow Up appointment. MEDICATIONS Current Outpatient Medications Medication Instructions Alcohol Swabs (Alcohol Prep Pad) 70 % pads 1 Pad, Topical, Daily, Use four times daily to check FSBS. Blood Glucose Monitoring Suppl (rumr-[employer] Software Glucometer) w/Device kit 1 kit, Does not apply, Daily, Use four times daily to check FSBS. In the morning prior to breakfast & 1 hour after each meal for a total of 4times daily. clonazePAM (KlonoPIN) 0.5 MG tablet ibuprofen 600 MG tablet labetalol (NORMODYNE) 100 mg, Oral, 2 times daily MV-Min-Fe Fum-FA-DHA ( 1 PO) Oral Vyvanse 40 MG capsule ALLERGIES Allergies Allergen Reactions Penicillins Hives Amoxicillin PROBLEMS Active Ambulatory Problems Diagnosis Date Noted No Active Ambulatory Problems Resolved Ambulatory Problems Diagnosis Date Noted No Resolved Ambulatory Problems Past Medical History: Diagnosis Date Breast screening Encounter for repeat Papanicolaou smear of cervix 01/15/2023 H/O LEEP 08/01/2022 History of colposcopy 07/18/2022 LGSIL on Pap smear of cervix 06/13/2022 Mitral valve prolapse HISTORY PAST MEDICAL HISTORY SOCIAL HISTORY Past Medical History: Diagnosis Date Breast screening Recieved clinical breast exam bt not referred for further evaluation based on their clinical breast exam. Encounter for repeat Papanicolaou smear of cervix 01/15/2023 H/O LEEP 08/01/2022 History of colposcopy 07/18/2022 HGSIL LGSIL on Pap smear of cervix 06/13/2022 Mitral valve prolapse Social History Tobacco Use Smoking status: Never Smokeless tobacco: Not on file Substance Use Topics Alcohol use: Yes Comment: 1 or 2 drinks on typical day ; Caffeine: 1-2 cups/day coffee Drug use: Never FAMILY HISTORY No family history on file. SURGICAL HISTORY Past Surgical History: Procedure Laterality Date CERVICAL BIOPSY W/ LOOP ELECTRODE EXCISION 08/01/2022 SECTION, LOW TRANSVERSE 03/25/2024 IUD REMOVAL 05/09/2018 IUD: Angie PAP SMEAR >1 year ago WISDOM TOOTH EXTRACTION teeth REVIEW OF SYSTEMS Review of Systems: Review of Systems Constitutional: Negative. HENT: Negative. Eyes: Negative. Respiratory: Negative. Cardiovascular: Negative. Gastrointestinal: Negative. Genitourinary: Negative. Musculoskeletal: Negative. Skin: Negative. Neurological: Negative. All other systems reviewed and are negative. Hematological: Negative. Endocrine: Negative. Allergic/Immunologic: Negative. OBJECTIVE Objective: Physical Exam Constitutional: Appearance: Normal appearance. She is well-developed. Cardiovascular: Rate and Rhythm: Normal rate and regular rhythm. Pulmonary: Effort: Pulmonary effort is normal. Breath sounds: Normal breath sounds. Abdominal: General: Bowel sounds are normal. There is no distension. Palpations: Abdomen is soft. Tenderness: There is no abdominal tenderness. There is no guarding or rebound. Musculoskeletal: General: No swelling. Normal range of motion. Right lower leg: No edema. Left lower leg: No edema. Neurological: Mental Status: She is alert and oriented to person, place, and time. Skin: General: Skin is warm and dry. Psychiatric: Mood and Affect: Mood normal. Behavior: Behavior normal. Vitals and nursing note reviewed. Exam conducted with a new media strategist present. Vitals: Estimated body mass index is 35.48 kg/m as calculated from the following: Height as of 23: 5' 2 . Weight as of this encounter: 194 lb. BP: 122/72 No LMP recorded (exact date). ASSESSMENT & PLAN ICD-10-CM 1. 6 weeks follow-up Z39.2 2. S/P section Z98.891 Post Follow Up: Patient is doing well but has complaints of none. Patient presents today for 6 week visit. Patient is s/p delivery. Patient states depression but denies suicidal and homicidal ideations. All options were discussed with the patient regarding control and patient desires IUD. Pt to return for Mirena insertion. Follow Up: Patient is to return for annual unless needed otherwise. Documented by Bhavya Jimenez LPN on behalf of: Angie Vivar DO documented in this encounter [facility] History of Present illness Narrative 03-25-2024 Bhavya Jimenez LPN - 03/25/2024 11:10 AM EDT Note Date & Type Note Facility 03-25-2024 History of Presen t illness Narrative Reason for Appointment: Patient ID: Marisa Adan is a 28 y.o. female who presents for Routine Visit Patient presents today for Return OB appointment. MEDICATIONS Current Outpatient Medications Medication Instructions Alcohol Swabs (Alcohol Prep Pad) 70 % pads 1 Pad, Topical, Daily, Use four times daily to check FSBS. Blood Glucose Monitoring Suppl (rumr-VIDA Software Glucometer) w/Device kit 1 kit, Does not apply, Daily, Use four times daily to check FSBS. In the morning prior to breakfast & 1 hour after each meal for a total of 4times daily. labetalol (NORMODYNE) 100 mg, Oral, 2 times daily MV-Min-Fe Fum-FA-DHA ( 1 PO) Oral ALLERGIES Allergies Allergen Reactions Penicillins Hives Amoxicillin PROBLEMS Active Ambulatory Problems Diagnosis Date Noted No Active Ambulatory Problems Resolved Ambulatory Problems Diagnosis Date Noted No Resolved Ambulatory Problems Past Medical History: Diagnosis Date Breast screening Encounter for repeat Papanicolaou smear of cervix 01/15/2023 H/O LEEP 08/01/2022 History of colposcopy 07/18/2022 LGSIL on Pap smear of cervix 06/13/2022 Mitral valve prolapse HISTORY PAST MEDICAL HISTORY SOCIAL HISTORY Past Medical History: Diagnosis Date Breast screening Recieved clinical breast exam bt not referred for further evaluation based on their clinical breast exam. Encounter for repeat Papanicolaou smear of cervix 01/15/2023 H/O LEEP 08/01/2022 History of colposcopy 07/18/2022 HGSIL LGSIL on Pap smear of cervix 06/13/2022 Mitral valve prolapse Social History Tobacco Use Smoking status: Never Smokeless tobacco: Not on file Substance Use Topics Alcohol use: Yes Comment: 1 or 2 drinks on typical day ; Caffeine: 1-2 cups/day coffee Drug use: Never FAMILY HISTORY No family history on file. SURGICAL HISTORY Past Surgical History: Procedure Laterality Date CERVICAL BIOPSY W/ LOOP ELECTRODE EXCISION 08/01/2022 IUD REMOVAL 05/09/2018 IUD: Angie PAP SMEAR >1 year ago WISDOM TOOTH EXTRACTION teeth REVIEW OF SYSTEMS Review of Systems: Review of Systems Constitutional: Negative. HENT: Negative. Eyes: Negative. Respiratory: Negative. Cardiovascular: Negative. Gastrointestinal: Negative. Genitourinary: Negative. Musculoskeletal: Negative. Skin: Negative. Neurological: Negative. All other systems reviewed and are negative. Hematological: Negative. Endocrine: Negative. Allergic/Immunologic: Negative. OBJECTIVE Objective: Physical Exam Constitutional: Appearance: Normal appearance. She is well-developed. Genitourinary: Vulva normal. Cardiovascular: Rate and Rhythm: Normal rate and regular rhythm. Pulmonary: Effort: Pulmonary effort is normal. Breath sounds: Normal breath sounds. Abdominal: General: Bowel sounds are normal. There is no distension. Palpations: Abdomen is soft. Tenderness: There is no abdominal tenderness. There is no guarding or rebound. Musculoskeletal: General: No swelling. Normal range of motion. Right lower leg: No edema. Left lower leg: No edema. Neurological: Mental Status: She is alert and oriented to person, place, and time. Skin: General: Skin is warm and dry. Psychiatric: Mood and Affect: Mood normal. Behavior: Behavior normal. Vitals and nursing note reviewed. Exam conducted with a new media strategist present. Vitals: Estimated body mass index is 40.79 kg/m as calculated from the following: Height as of 01/15/23: 5' 2 . Weight as of this encounter: 223 lb. BP: 132/82 Patient's last menstrual period was 07/06/2023. ASSESSMENT & PLAN ICD-10-CM 1. Third trimester Z34.93 POCT urinalysis dipstick manually resulted Return OB: Patient presents today for a routine obstetrics appointment. Patient is currently 37w4d . Patient states she is doing well but has complaints of being tired due to current . Patient has verbalizes frequent movement. labor precautions was discussed/given and patient was instructed to perform kick counts three times a day. Pt states movement has decreased and is on labetalol twice a day. Pt being induced with cervidil at 1600 on 03/25/24. Induction consents signed. Orders Placed This Encounter Procedures POCT urinalysis dipstick manually resulted Follow Up: Patient is to return to office in 1 week for routine OB appointment. Documented by Bhavya Jimenez LPN on behalf of: Angie Vivar DO documented in this encounter [facility] Clinical Note 08-23-2022 Note Date & Type Note Facility 08-23-2022 Note OPERATIVE NOTE OPERATION DATE: 08/23/2022 PROCEDURE: LEEP Procedure. PREOPERATIVE DIAGNOSIS: Cervical dysplasia. POSTOPERATIVE DIAGNOSIS: Cervical dysplasia. ANESTHESIA: General. SURGEON: Angie Vivar D.O. MORTGAGE LOAN REVIEWER: None. BLOOD LOSS: 5 mL. SPECIMEN: Ectocervical [...] in stable condition. [facility] Medication management note 06-11-2022 Note Date & Type Note Facility 06-11-2022 Note Entered by Diane Wadsworth on June 11, 2022 09:44:53 EST From: Diane Wadsworth To: LYNSE[facility] GALLAGHER #[id number] Sent: 06/11/2022 09:44:53 EST Subject: Medication Management Submitted: Complete:desogestrel-ethinyl estradiol (Velivet oral tablet) Signed by Diane Wadsworth 06/11/2022 09:44:00 EST Approved desogestrel-ethinyl estradiol (VELIVET 28 DAY TABLET) take 1 tablet by mouth once daily Qty: 84 tab(s) Days Supply: 84 Refills: 0 Substitutions Allowed Route To Pharmacy - [facility] #[id number] Signed by Diane Wadsworth Patient matched by Diane Wadsworth on 06/11/2022 09:41:06 EST From: [facility] #[id number] To: Bhavya Estrada MD Sent: June 11, 2022 8:39:02 AM RECORD FILING CLERK Subject: Medication Management Due: June 12, 2022 12:05:33 AM RECORD FILING CLERK On Hold Pending Signature Drug: desogestrel-ethinyl estradiol [...] Note Facility Evaluation note No assessment information [facility] Work Phone: Evaluation note Note Date & Type Note Facility Evaluation note Diagnosis 6 weeks follow-up S/P section Other postprocedural status documented in this encounter [facility] Evaluation note Note Date & Type Note Facility Evaluation note Diagnosis Encounter for insertion of Mirena IUD documented in this encounter [facility] Evaluation note Note Date & Type Note Facility Evaluation note Diagnosis Third trimester state, incidental documented in this encounter [facility] Summary Purpose Family History No Family History [...] DATE CREATED AUTHOR AUTHOR'S ORGANIZ ATION 12/23/2021 [facility] DATE CREATED AUTHOR AUTHOR'S ORGANIZ ATION 06/11/2022 [facility] DATE CREATED AUTHOR AUTHOR'S ORGANIZ ATION 09/05/2022 [facility] DATE CREATED AUTHOR AUTHOR'S ORGANIZ ATION 06/20/2024 [facility] [employer] Care Teams (unrecognized sec tion and content) Team Status: Inactive Member Role Status Dates NON STAFF Primary Care Provider Active Dom Paulino Jr DO Attending Provider Active Team Status: Active Member Role Status Dates NON STAFF Primary Care Provider Active Pie Filler Relationship Specialty Start Date End Date Bhavya Estrada MD [address] [place] [id number] PCP - General Internal Medicine 01/15/23 Pie Filler Relationship Specialty Start Date End Date Bhavya Estrada MD [address] [place] [id number] PCP - General Internal Medicine 01/15/23 Pie Filler Relationship Specialty Start Date End Date Bhavya Estrada MD [address] [place] [id number] PCP - General Internal Medicine 01/15/23 Pie Filler Relationship Specialty Start Date End Date Bhavya Estrada MD [address] [place] [id number] PCP - General Internal Medicine 01/15/23 Pie Filler Relationship Specialty Start Date End Date Bhavya Estrada MD [address] [place] [id number] PCP - General Internal Medicine 01/15/23 Goals (unrecognized section and content) Goals may be documented in a n alternate section Reason for Visit (unrecogniz ed section and content) Reason Comments Care Pt present today for 6 week post visit. Pt delivered on 03/25/2024 by C/S. Reason Comments Contraception Mirena Insert Reason Comments Routine Visit FOR RECORDS PERTAINING TO PATIENTS WHO ARE [...] BE BASED ON THE PRIMARY CLINICAL RECORDS. [employer] provides no warranty or guarantee of the accuracy or completeness of information in this document.
== END 2024-06-22 11:04 | disposition home or self-care (01) ==
LOC: NOMS 11:03
PROVIDERS: Visit Provider Obstetrics & Gynecology
DX: T83.32XA Displacement of intrauterine contraceptive device, initial encounter (principal); Z30.430 Encounter for insertion of intrauterine contraceptive device
CPT/HCPCS: 76830

== ENCOUNTER 2024-07-31 10:57 | Outpatient (OUT) | payer OTHER, SELFPAY ==
--- OUTSIDE RECORDS SUMMARY | 2024-07-31 11:05 | XMS_ITS | CCD ---
Author Organization [facility] Care Team Providers Care Physician Primary Care Sports Medicine Name Role Phone Unavailable Primary Care Provider UnavailMORALES Renner Referring Unavailable NON STAFF Primary Care Provider UnavailDO Dom Cerda Jr Attending Provider [phone] Bhavya Estrada Primary Care Unavailable Sean, Bhavya Primary Care Unavailable Bhavya Estrada Attending Unavailable Sean, Bhavya Primary Care Unavailable CB ., DR ADAMS [...] Unavailable Bhavya Estrada MD Primary Care Provider ANGIE VIVAR Attending Unavailable CBMARIXAY Attending Unavailable CBMARIXAY Attending Unavailable CBMARIXAY Attending Unavailable CB, ANGIE Attending Unavailable ALISONCHAYA SORIA Attending Unavailable CB, ANGIE Attending Unavailable ALISON, CHAYA Attending Unavailable CBANGIE Attending Unavailable CBANGIE Attending Unavailable ALISON, CHAYA Attending Unavailable CB, ANGIE Attending Unavailable CB, ANGIE Attending Unavailable CB, ANGIE Attending Unavailable Allergies Allergy Classification Reported Allergen(s) Allergy Type Date of Onset Reaction(s) Facility (20 sources) Amoxicillin; Translations: [amoxicillin] Drug Allergy 3 [facility] Repository (1 source) tiZANidine; Translations: [tiZANidine] Drug Allergy [facility] Repository (20 sources) Penicillins Drug Intolerance 6 Hives [facility] Work Phone: Medications Current Medications Medication Drug Class(es) Dates Sig (Normalized) Sig (Original) clonazePAM 0.5 mg oral tablet (6 sources) Benzodiazepine Start: 05-08-2024 clonazePAM (KlonoPIN) 0.5 MG tablet 05/08/2024 Active levonorgestrel 0.454341 mg/hr intrauterine system (6 sources) Progestin, Progestin-containin g Intrauterine Device Start: 05-20-2024 End: 05-19-2029 Levonorgestrel intrauterine device 52 mg Start: 05-20-2024 End: 05-20-2024 52 mg, Intrauterine, Once WA N Procedure, Starting on Sat05/20/24 at 1530, For 1 dose lisdexamfetamine dimesylate 40 mg oral capsule (6 sources) Central Nervous System Stimulant Start: 05-08-2024 Vyvanse 40 MG capsule 05/08/2024 Active Completed/Discontinued Medications Medication Drug Class(es) Dates Sig (Normalized) Sig (Original) azithromycin 250 mg oral tablet (6 sources) Macrolide Antimicrobial Start: 03-13-2024 End: 03-25-2024 azithromycin (Zithromax Z-Jerel) 250 MG tablet Indications: Upper respiratory tract infection, unspecified type As directed 6 tablet 03/13/2024 03/25/2024 Discontinued Blood Glucose Monitoring Suppl (D-Care Glucometer) w/Device kit (19 sources) Start: 01-13-2024 End: 05-20-2024 Blood Glucose [...] 01/12/2025 Active clindamycin 300 mg oral capsule (5 sources) Lincosamide Antibacterial Start: 03-17-2024 End: 03-27-2024 [...] Discontinued isopropyl alcohol 0.7 ml/ml medicated pad (19 sources) Start: 01-13-2024 End: 05-20-2024 Alcohol Swabs (Alcohol Prep Pad) 70 % pads Indications: Gestational diabetes mellitus (GDM), antepartum, gestational diabetes method of control unspecified , Elevated glucose tolerance test Apply 1 Pad topically Daily Use four times daily to check FSBS. 150 each 3 01/13/2024 05/20/2024 Discontinued labetalol hydrochloride 100 mg oral tablet (18 sources) beta-Adrenergic Sven Start: 03-03-2024 End: 06-01-2024 take 1 tablet by mouth in the morning labetalol (Normodyne) 100 MG tablet Indications: induced hypertension, antepartum Take 1 tablet (100 mg) by mouth in the morning and 1 tablet (100 mg) before bedtime. 180 tablet 03/03/2024 05/20/2024 Discontinued magnesium oxide 400 mg oral tablet (11 sources) Start: 09-05-2023 End: 03-25-2024 take 1 tablet by mouth once daily magnesium oxide (Mag-Ox) 400 (240 Mg) MG tablet Take 400 mg by mouth Daily 09/05/2023 03/25/2024 Discontinued MV-Min-Fe Fum-FA-DHA ( 1 PO) (19 sources) End: 05-20-2024 MV-Min-Fe Fum-FA-DHA ( 1 PO) Take by mouth 05/20/2024 Discontinued MV-Min- Fe Fum-FA-DHA ( 1 PO) Take by mouth Active Problems Active Problems Problem Classification Problem Date Documented Date Episodic/Chronic Cancer of cervix (5 sources) Low grade squamous intraepithelial lesion on cytologic smear of cervix (LGSIL); Translations: [High grade squamous intraepithelial lesion on cytologic smear of cervix (HGSIL)] Onset: 08-20-2022 Episodic Complication of device; implant or graft (2 sources) IUD threads lost; Translations: [Displacement of intrauterine contraceptive device, initial encounter] 06-17-2024 Episodic Contraceptive and procreative management (5 sources) Patient encounter status; Translations: [Encounter for insertion of intrauterine contraceptive device] 05-20-2024 Episodic Immunizations and screening for infectious disease (1 source) Encounter for screening for human papillomavirus (HPV); Translations: [ENC SCREENING HUMAN PAPILLOMAVIRUS] Onset: 06-16-2022 Episodic Other aftercare (2 sources) Postoperative visit; Translations: [Encounter for other specified surgical aftercare] 04-02-2024 Episodic Other and delivery including normal (8 sources) care status; Translations: [Encounter for routine follow-up] 2024 Episodic Other screening for suspected conditions (not mental disorders or infectious disease) (4 sources) Encounter for screening for malignant neoplasm of cervix; Translations: [ENC SCREENING MALIG NEOPLASM CERV] Onset: 06-13-2022 Episodic Substance-related disorders (1 source) Nicotine dependence, other tobacco product, uncomplicated; Translations: [NICOTINE DEPEND OTH TOB PROD UNCOMP] Onset: 08-20-2022 Chronic Past or Other Problems Problem Classification Problem Date Documented Da te Episodic/Chronic Hypertension complicating ; childbirth and the puerperium (2 sources) -induced hypertension; Translations: [Gestational [-induced] hypertension without significant proteinuria, unspecified trimester] 03-03-2024 Episodic Other upper respiratory infections (2 sources) Upper respiratory infection; Translations: [Acute upper respiratory infection, unspecified] 03-17-2024 Episodic Results Test Name Value Interpretation Reference Range Facility HCG ( test) Ql (U)o n 05-20-2024 Interpretation and review of laboratory results Normal [facility] Preg Test, Ur Negative Negative [facility] IUD Insertionon 05-20-2024 Bhavya Jimenez LPN 05/31/2024 2:10 PM IUD Insertion Performed by: Angie Vivar DO Authorized by: Angie Vivar DO Procedure: IUD insertion Consent obtained by patient, parent, or legal power of regulatory attorney - including discussion of procedure risks [...] guidance: no Intended removal date: 5 years [facility] ALL CBC WITH AUTO DIFFon BASOPHILS ABSOLUTE AUTO 0.0 [facility] Basophils/100 WBC (Bld) 0.2 % 0.2 - 2.0 % [facility] Eosinophils/100 WBC (Bld) 0.1 % Low 0.9 - 7.0 % [facility] Erythrocyte distribution width (RBC) [Ratio] 12.4 % 11.0 - 15.0 % [facility] Hematocrit (Bld) [Volume fraction] 33.2 % Low 36.0 - 48.0 % [facility] Hemoglobin (Bld) [Mass/Vol] 11.5 g/dL Low 12.0 - 16.0 g/dL [facility] IMMATURE GRANULOCYTES ABS AUTO 0.17 High [facility] Immature granulocytes/100 WBC (Bld) 1.0 % High 0.0 - 0.5 % [facility] Interpretation and review of laboratory results Abnormal [facility] LYMPHOCYTES ABSOLUTE AUTO 1.5 [facility] Lymphocytes/100 WBC (Bld) 8.6 % Low 20.5 - 60.0 % [facility] MCH (RBC) [Entitic mass] 32.3 pg 26.7 - 34.0 pg [facility] MCHC (RBC) [Mass/Vol] 34.6 g/dL 29.9 - 35.2 g/dL [facility] MCV (RBC) [Entitic vol] 93.3 fL 81.0 - 99.0 fL [facility] MONOCYTES ABSOLUTE AUTO 1.5 High [facility] Monocytes/100 WBC (Bld) 8.2 % 1.7 - 12.0 % [facility] NEUTROPHILS ABSOLUTE AUTO 14.7 High [facility] Neutrophils/100 WBC (Bld) 81.9 % High 43.0 - 75.0 % [facility] Platelet mean volume (Bld) [Entitic vol] 12.0 fL 9.5 - 13.5 fL [facility] TBH EO # 0.0 [facility] TB PLT 176 [facility] RBC 3.56 Low [facility] WBC 17.9 High [facility] DRUG SCREEN RAPID (URINE )on 03-25-2024 AMPHETAMINE SCREEN URINE Negative NEGATIVE [facility] BARBITURATES SCREEN URINE Negative NEGATIVE [facility] BENZODIAZEPINES SCREEN URINE Negative NEGATIVE [facility] BUPRENORPHINE SCREEN URINE Negative NEGATIVE [facility] Comment on above: DRUG CLASS TEST SYST EM CUT-OFF CONCENTRATIONS ARE FOLLOWS: AMP (Amphetamine): 500 ng/mL BAR (Barbiturates): 200 ng/mL BZO (Benzodiazepines): 150 ng/mL BUP (Buprenorphine): 10 ng/mL KELECHI (Cocaine): 150 ng/mL mAMP (Methamphetamine): 500 ng/mL MTD (Methadone): 200 ng/mL OPI (Opiates): 100 ng/mL OXY (Oxycodone): 100 ng/mL PCP (Phencyclidine): 25 ng/mL THC (Cannabinoids): 50 ng/mL TCA (Trycyclic Antidepressants): 300 ng/mL CANNABINOID SCREEN URINE Negative NEGATIVE [facility] COCAINE SCREEN URINE Negative NEGATIVE [facility] METHADONE SCREEN URINE Negative NEGATIVE NO [facility] METHAMPHETAMINES SCREEN URINE Negative NEGATIVE [facility] OPIATE SCREEN URINE Negative NEGATIVE [facility] OXYCODONE SCREEN URINE Negative NEGATIVE NO [facility] PHENCYCLIDINE SCREEN URINE Negative NEGATIVE [facility] TRICYCLIC ANTIDEPRESSANT URINE Negative NEGATIVE [facility] Urinalysis macro (dipstick) panel (U)on 03-25-2024 Bilirubin, UA Negative Negative - 4(70) +++ mg/dL [facility] Blood, UA Positive Negative - 50 Ravi/mcL [facility] Comment on above: trace-intact Clarity, UA Clear [facility] Color, UA Yellow [facility] Glucose, UA Negative Negative - 1999(110) ++++ mg/dL [facility] Interpretation and review of laboratory results Abnormal [facility] Ketones, UA Negative Negative - 160(16) ++++ mg/dL [facility] Leukocytes, UA Trace Negative - 500+++ Brea/mcL [facility] Nitrite, UA Negative Negative - Positive [facility] pH, UA 6.5 5 - 9 [facility] Protein, UA Negative Negative - 1999(20) ++++ mg/dL [facility] Spec Grav, UA 1.015 1 - 1.03 [facility] Urobilinogen, UA 0.2 0.2 - 12 mg/dL [facility] Urinalysis macro (dipstick) panel (U)on 03-17-2024 Bilirubin, UA Negative Negative - 4(70) +++ mg/dL [facility] Blood, UA Negative Negative - 50 Ravi/mcL [facility] Clarity, UA Clear [facility] Color, UA Yellow [facility] Glucose, UA Negative Negative - 1999(110) ++++ mg/dL [facility] Interpretation and review of laboratory results Abnormal [facility] Ketones, UA Negative Negative - 160(16) ++++ mg/dL [facility] Leukocytes, UA Moderate Negative - 500+++ Brea/mcL [facility] Nitrite, UA Negative Negative - Positive [facility] pH, UA 6.0 5 - 9 [facility] Protein, UA Negative Negative - 1999(20) ++++ mg/dL [facility] Spec Grav, UA 1.010 1 - 1.03 [facility] Urobilinogen, UA 0.2 0.2 - 12 mg/dL [facility] TBH TOTAL PROTEIN 24 HOUR UR INEon 03-05-2024 Interpretation and review of laboratory results Abnormal [facility] Protein (U) [Mass/Vol] 9.0 mg/dL NINF - 11.9 mg/dL [facility] TB TOTAL PROTEIN 24 HOUR URINE 238.5 High [facility] TOTAL VOLUME 24 HOUR URINE 2650 mL/24hr [facility] ALL CBC WITH AUTO DIFFon BASOPHILS ABSOLUTE AUTO 0.1 [facility] Basophils/100 WBC (Bld) 0.4 % 0.2 - 2.0 % [facility] Eosinophils/100 WBC (Bld) 2.9 % 0.9 - 7.0 % [facility] Erythrocyte distribution width (RBC) [Ratio] 13.0 % 11.0 - 15.0 % [facility] Hematocrit (Bld) [Volume fraction] 38.9 % 36.0 - 48.0 % [facility] Hemoglobin (Bld) [Mass/Vol] 13.4 g/dL 12.0 - 16.0 g/dL [facility] IMMATURE GRANULOCYTES ABS AUTO 0.17 High [facility] Immature granulocytes/100 WBC (Bld) 1.4 % High 0.0 - 0.5 % [facility] Interpretation and review of laboratory results Abnormal [facility] LYMPHOCYTES ABSOLUTE AUTO 2.2 [facility] Lymphocytes/100 WBC (Bld) 18.3 % Low 20.5 - 60.0 % [facility] MCH (RBC) [Entitic mass] 32.1 pg 26.7 - 34.0 pg [facility] MCHC (RBC) [Mass/Vol] 34.4 g/dL 29.9 - 35.2 g/dL [facility] MCV (RBC) [Entitic vol] 93.1 fL 81.0 - 99.0 fL [facility] MONOCYTES ABSOLUTE AUTO 0.9 High [facility] Monocytes/100 WBC (Bld) 7.6 % 1.7 - 12.0 % [facility] NEUTROPHILS ABSOLUTE AUTO 8.4 High [facility] Neutrophils/100 WBC (Bld) 69.4 % 43.0 - 75.0 % [facility] Platelet mean volume (Bld) [Entitic vol] 11.7 fL 9.5 - 13.5 fL [facility] TBH EO # 0.4 [facility] TBH PLT 167 [facility] RBC 4.18 Low [facility] WBC 12.1 High [facility] Urinalysis macro (dipstick) panel (U)on 03-03-2024 Bilirubin, UA Negative Negative - 4(70) +++ mg/dL [facility] Blood, UA Negative Negative - 50 Ravi/mcL [facility] Clarity, UA Clear [facility] Color, UA Yellow [facility] Glucose, UA Negative Negative - 2000(110) ++++ mg/dL [facility] Interpretation and review of laboratory results Normal [facility] Ketones, UA Negative Negative - 160(16) ++++ mg/dL [facility] Leukocytes, UA Negative Negative - 500+++ Brea/mcL [facility] Nitrite, UA Negative Negative - Positive [facility] pH, UA 7.0 5 - 9 [facility] Protein, UA Negative Negative - 2000(20) ++++ mg/dL [facility] Spec Grav, UA 1.015 1 - 1.03 [facility] Urobilinogen, UA 0.2 0.2 - 12 mg/dL [facility] Cytology Cervical or vaginal smear or scraping studyon 05-21-2023 [facility] CBC AUTO DIFFon 08-23-2022 BASO # 0.1 103/ul Normal 0.0-0.1 [facility] Comment on above: Performed By: #### C BC #### [facility] [address] [place] [address] Dr. Car Lozada Basophils/100 WBC (Bld) 0.5 % Normal 0.2-2.0 [facility] Comment on above: Performed By: #### C BC #### [facility] [address] [place] [address] Dr. Car Lozada EO # 0.6 103/ul Normal 0.0-0.7 [facility] Comment on above: Performed By: #### C BC #### [facility] [address] [place] [address] Dr. Car Lozada Eosinophils/100 WBC (Bld) 5.9 % Normal 0.9-7.0 [facility] Comment on above: Performed By: #### C BC #### [facility] [address] [place] [address] Dr. Car Lozada Erythrocyte distribution width (RBC) [Ratio] 12.6 % Normal 11.0-15.0 [facility] Comment on above: Performed By: #### C BC #### [facility] [address] [place] [address] Dr. Car Lozada Hematocrit (Bld) [Volume fraction] 42.0 % Normal 36.0-48.0 [facility] Comment on above: Performed By: #### C BC #### [facility] [address] [place] [address] Dr. Car Lozada Hemoglobin (Bld) [Mass/Vol] 14.1 g/dL Normal 12.0-16.0 [facility] Comment on above: Performed By: #### C BC #### [facility] [address] [place] [address] Dr. Car Lozada IG # 0.04 10e3/ul Critically high 0.00-0.03 [facility] Comment on above: Performed By: #### C BC #### [facility] [address] [place] [address] Dr. Car Lozada IG % 0.4 % Normal 0.0-0.5 [facility] Comment on above: Performed By: #### C BC #### [facility] [address] [place] [address] Dr. Car Lozada LYMPH # 3.6 103/ul Normal 1.2-3.8 [facility] Comment on above: Performed By: #### C BC #### [facility] [address] [place] [address] Dr. Car Lozada Lymphocytes/100 WBC (Bld) 34.7 % Normal 20.5-60.0 [facility] Comment on above: Performed By: #### C BC #### [facility] [address] [place] [address] Dr. Car Lozada MANUAL DIFF REQ NO Normal [facility] Comment on above: Performed By: #### C BC #### [facility] [address] [place] [address] Dr. Car Lozada MCH (RBC) [Entitic mass] 31.2 pg Normal 26.7-34.0 [facility] Comment on above: Performed By: #### C BC #### [facility] [address] [place] [address] Dr. Car Lozada MCHC (RBC) [Mass/Vol] 33.6 g/dL Normal 29.9-35.2 [facility] Comment on above: Performed By: #### C BC #### [facility] [address] [place] [address] Dr. Car Lozada MCV (RBC) [Entitic vol] 92.9 fL Normal 81.0-99.0 [facility] Comment on above: Performed By: #### C BC #### [facility] [address] [address] [address] Car Lozada MONO # 0.9 103/ul Critically high 0.3-0.8 [facility] Comment on above: Performed By: #### C BC #### [facility] [address] [address] [address] Car Lozada Monocytes/100 WBC (Bld) 8.3 % Normal 1.7-12.0 [facility] Comment on above: Performed By: #### C BC #### [facility] [address] [place] [address] Dr. Car Lozada NEUT # 5.2 103/ul Normal 1.4-6.5 [facility] Comment on above: Performed By: #### C BC #### [facility] [address] [place] [address] Dr. Car Lozada Neutrophils/100 WBC (Bld) 50.2 % Normal 43.0-75.0 [facility] Comment on above: Performed By: #### C BC #### [facility] [address] [place] [address] Dr. Car Lozada Platelet mean volume (Bld) [Entitic vol] 10.0 fL Normal 9.5-13.5 [facility] Comment on above: Performed By: #### C BC #### [facility] [address] [place] [address] Dr. Car Lozada PLT 251 103/ul Normal 150-450 [facility] Comment on above: Performed By: #### C BC #### [facility] [address] [place] [address] Dr. Car Lozada RBC 4.52 106/ul Normal 4.20-5.40 [facility] Comment on above: Performed By: #### C BC #### [facility] [address] [place] [address] Dr. Car Lozada WBC 10.3 103/ul Normal 4.0-11.0 [facility] Comment on above: Performed By: #### C BC #### [facility] [address] [address] [address] Car Lozada PREG QUANT HCGon 08-23-2022 HCG QUANT <1 Normal [facility] Comment on above: Performed By: #### P REGQNT #### [facility] [address] [address] [address] Car Lozada HCG RANGE SEE BELOW Normal [facility] Comment on above: Result Comment: 5-50 0.2-1 WEEK 50-500 1-2 WEEKS 100-5,000 2-3 WEEKS 500-10,000 3-4 WEEKS 1,000-50,000 4-5 WEEKS 10,000-100,000 5-6 WEEKS 15,000-200,000 6-8 WEEKS 10,000-100,000 2-3 MONTHS Performed By: #### P REGQNT #### [facility] [address] [address] [address] Car Lozada XR CHEST 2 Von [...] JOSÉ MIGUEL LIMON Date: 2022-08-16 10:17 Normal [facility] PAP ACOG PANEL 2: 21 to 29on 06-25-2022 . . Normal [facility] Comment on above: Performed By: #### [id number] #### [facility] [address] [address] [address] Car Lozada Age Gdln ACOG Testing - Normal [facility] Comment on above: Performed By: #### [id number] #### [facility] [address] [place] [address] Dr. Car Lozada DIAGNOSIS: Comment Abnormal [facility] Comment on above: Result Comment: EPIT HELIAL CELL ABNORMALITY. LOW GRADE SQUAMOUS INTRAEPITHELIAL LESION (LSIL). Performed By: #### [id number] #### [facility] [address] [address] [address] Car Lozada Electronically signed by: Comment Normal [facility] Comment on above: Result Comment: Phyllis Vital MD, Pathologist Performed By: #### [id number] #### [facility] [address] [address] [address] Car Lozada Methodology: Comment Normal [facility] Comment on above: Result Comment: This liquid based ThinPrep(R) pap test was screened with the use of an image guided system. Performed By: #### [id number] #### [facility] [address] [place] [address] Dr. Car Lozada Note: Comment Normal [facility] Comment on above: Result Comment: The Pap smear is a screening test designed to aid in the detection of premalignant and malignant conditions of the uterine cervix. It is not a diagnostic procedure and should not be used as the sole means of detecting cervical cancer. Both false-positive and false-negative reports do occur. . Performed By: #### [id number] #### [facility] [address] [place] [address] Dr. Car Lozada Pathologist Provided ICD10 Comment Normal [facility] Comment on above: Result Comment: [id number] Performed By: #### [id number] #### [facility] [address] [place] [address] Dr. Car Lozada Performed by: Comment Normal [facility] Comment on above: Result Comment: Sidney Masters, Psychiatrist (ASCP) Performed By: #### [id number] #### [facility] [address] [place] [address] Dr. Car Lozada Recommendation: Comment Abnormal [facility] Comment on above: Result Comment: Sugg est follow up as clinically appropriate. Performed By: #### 4 [id number] #### [facility] [address] [address] [address] Car Lozada Reflex Criteria: Comment Normal [facility] Comment on above: Result Comment: The HPV DNA reflex criteria were not met with this specimen result therefore, no HPV testing was performed. . Performed By: #### 4 [id number] #### [facility] [address], [place] [address] Dr. Car Lozada Specimen adequacy: Comment Normal [facility] Comment on above: Result Comment: Sati sfactory for evaluation. Endocervical and/or squamous metaplastic cells (endocervical component) are present. Performed By: #### [id number] #### [facility] [address], [place] [address] Dr. Car Lozada Body fluid albumin measureme nt (mass/volume)Ordered By: Dom Paulino on 12-22-2021 Albumin (Body fld) [Mass/Vol] 3.4 g/dL 3.2-5.5 [facility] Cholesterol [Mass/volume] in Serum or PlasmaOrdered By: Dom Paulino on 12-22-2021 Cholesterol [Mass/Vol] 228 mg/dL 140-200 [facility] Comment on above: Chol less than [...] #### E BS CMP, EBS LIPID #### [facility] [address] Albumin/Globulin [Mass ratio] 1.2 {ratio} Normal [facility] Comment on above: Performed By: #### E BS CMP, EBS LIPID #### [facility] [address] [place] [id number] [place] ALP [Catalytic activity/Vol] 48 U/L Normal 32-92 [facility] Comment on above: Performed By: #### E BS CMP, EBS LIPID #### [facility] [address] [place] [id number] [place] ALT [Catalytic activity/Vol] 14 U/L Normal 10-60 [facility] Comment on above: Performed By: #### E BS CMP, EBS LIPID #### [facility] [address] [place] [id number] [place] AST [Catalytic activity/Vol] 15 U/L Normal 10-42 [facility] Comment on above: Performed By: #### E BS CMP, EBS LIPID #### [facility] [address] Bilirubin [Mass/Vol] 0.3 mg/dL Normal 0.3-1.2 [facility] Comment on above: Performed By: #### E BS CMP, EBS LIPID #### [facility] [address] [place] [address] [place] Calcium [Mass/Vol] 9.3 mg/dL Normal 8.2-10.2 [facility] Comment on above: Performed By: #### E BS CMP, EBS LIPID #### [facility] [address] [place] [id number] [place] Chloride [Moles/Vol] 101 mmol/L Normal 95-114 [facility] Comment on above: Performed By: #### E BS CMP, EBS LIPID #### [facility] [address] [place] [id number] [place] CO2 [Moles/Vol] 23.8 mmol/L Normal 22.0-30.0 [facility] Comment on above: Performed By: #### E BS CMP, EBS LIPID #### [facility] [address] [place] [id number] [place] Creatinine [Mass/Vol] 0.79 mg/dL Normal 0.44-1.03 [facility] Comment on above: Performed By: #### E BS CMP, EBS LIPID #### [facility] [address] [place] [address] [place] Estimated GFR ( Aleena > 60 [facility] Comment on above: Result Comment: GFR estimated reference range: According to KDOQI guidelines, <60 ml/min/1.73m2 is sufficient to diagnose a patient with chronic kidney disease. Performed By: #### E BS CMP, EBS LIPID #### [facility] [address] Estimated GFR (Non- Am > 60 [facility] Comment on above: Performed By: #### E BS CMP, EBS LIPID #### [address] Globulin (S) [Mass/Vol] 2.8 g/dL Normal [facility] Comment on above: Performed By: #### E BS CMP, EBS LIPID #### [facility] [address] [place] [address] Glucose [Mass/Vol] 76 mg/dL Normal 70-100 [facility] Comment on above: Performed By: #### E BS CMP, EBS LIPID #### [address] Potassium [Moles/Vol] 3.8 mmol/L Normal 3.5-5.1 [facility] Comment on above: Performed By: #### E BS CMP, EBS LIPID #### [facility] [address] [place] [address] [place] Protein [Mass/Vol] 6.2 g/dL Normal 6.1-7.9 [facility] Comment on above: Performed By: #### E BS CMP, EBS LIPID #### [facility] [address] [place] [address] [place] Sodium [Moles/Vol] 136 mmol/L Normal 136-146 [facility] Comment on above: Performed By: #### E BS CMP, EBS LIPID #### [facility] [address] [place] [address] [place] Urea nitrogen [Mass/Vol] 10 mg/dL Normal 9-23 [facility] Comment on above: Performed By: #### E BS CMP, EBS LIPID #### [facility] [address] Creatinine and Glomerular fi ltration rate.predicted panel (S/P/Bld)Ordered By: Dom Paulino on 12-22-2021 Creatinine [Mass/Vol] 0.79 mg/dL 0.44-1.03 [facility] Estimated glomerular filtrat ion rate (GFR) non- AmericanOrdered By: Dom Paulino on 12-22-2021 GFR/1.73 sq M.predicted among non-blacks MDRD (S/P/Bld) [Vol rate/Area] > 60 mL/Min [facility] Globulin Calc (S) [Mass/Vol] Ordered By: Dom Paulino on 12-22-2021 Globulin (S) [Mass/Vol] 2.8 g/dL [facility] Laboratory - Chemistry and C hemistry - challengeOrdered By: Dom Paulino on 12-22-2021 Glucose [Mass/Vol] 76 mg/dL 70-100 [facility] Lipid Profileon 12-22-2021 Cholesterol [Mass/Vol] 228 mg/dL High 140-200 [facility] Comment on above: Result Comment: Chol less than 200 mg/dl low risk Chol 201-239 mg/dl borderline risk Chol 240 mg/dl and greater high risk Performed By: #### E BS CMP, EBS LIPID #### [facility] [address] [place] [address] [place] Cholesterol in HDL [Mass/Vol] 73 mg/dL Normal 35-85 [facility] Comment on above: Result Comment: HDL CHOL ATP-III CLASSIFICATION Cardiovascular Risk HDL > or equal to 60 mg/dL LOW HDL < 40 mg/dL HIGH Performed By: #### E BS CMP, EBS LIPID #### [facility] [address] Cholesterol.total/Chol esterol in HDL [Mass ratio] 3.1 {ratio} Normal <5.0 [facility] Comment on above: Result Comment: PERF ORMED BY: [facility] [address] [place] [address] PATHOLOGIST BAGGAGE PORTER HEAD DENYS WOO M.D. Performed By: #### E BS CMP, EBS LIPID #### [facility] [address] LDL Cholesterol,Calculated 136 mg/dL High 0-100 [facility] Comment on above: Result Comment: LDL ATP III CLASSIFICATION LDL less than 100 mg/dL Optimal LDL 100-129 mg/dL Near or above optimal LDL 130-159 mg/dL Borderline high LDL 160-189 mg/dL High LDL greater than 189 mg/dL Very high Performed By: #### E BS CMP, EBS LIPID #### [facility] [address] Triglyceride w/Reflex 95 mg/dL Normal 35-149 [facility] Comment on above: Result Comment: TRIG ATP III CLASSIFICATION TRIG less than 150 mg/dL Normal TRIG 150-199 mg/dL Borderline high TRIG 200-500 mg/dL High TRIG greater than 500 mg/dL Very high Standard traceable to the Center for Disease Conrtrol and Prevention (CDC) test method. Performed By: #### E BS CMP, EBS LIPID #### [facility] [address] VLDL CHOLESTEROL 19 mg/dL Normal [facility] Comment on above: Performed By: #### E BS CMP, EBS LIPID #### [facility] [address] No Panel InformationOrdered By: Dom Paulino on 12-22-2021 Estimated GFR () > 60 mL/Min [facility] Comment on above: GFR estimated refere nce range: According to KDOQI guidelines, <60 ml/min/1.73m2 is sufficient to diagnose a patient with chronic kidney disease. Pharmacy Creatinine Clearance (Chem N/A [facility] Triglycerides Reflex 95 mg/dL 35-149 [facility] Comment on above: TRIG ATP III [...] on 12-22-2021 Chloride [Moles/Vol] 101 mmol/L 95-114 [facility] Serum or plasma high density lipoprotein [...] Potassium [Moles/Vol] 3.8 mmol/L 3.5-5.1 [facility] Serum or plasma sodium measu rement (moles/volume)Ordered By: Dom Paulino on 12-22-2021 Sodium [Moles/Vol] 136 mmol/L 136-146 [facility] Serum or plasma total biliru bin measurement (mass/volume)Ordered By: Dom Paulino on 12-22-2021 Bilirubin [Mass/Vol] 0.3 mg/dL 0.3-1.2 [facility] Serum or plasma total carbon dioxide measurement (moles/volume)Ordered By: Dom Paulino on 12-22-2021 CO2 [Moles/Vol] 23.8 mmol/L 22.0-30.0 [facility] Serum or plasma total choles terol/high density lipoprotein (HDL) cholesterol mass ratOrdered By: Dom Paulino on 12-22-2021 Cholesterol.total/Chol esterol in HDL [Mass ratio] 3.1 {ratio} [facility] Serum or plasma urea nitroge n measurement (mass/volume)Ordered By: Dom Paulino on 12-22-2021 Urea nitrogen [Mass/Vol] 10 mg/dL 9-23 [facility] Outside Recordson 09-13-2021 Outside Records [id number]# [place] [facility] [place] 08-28-2021 Outside Records [id number] #1.[place] Outside Records [id number] #1.00[facility] Consent Formson 07-14-2021 Consent Forms [id number] #1.[place] Progress Note - Nurseon Progress Note - Nurse Antigen test ordered, test resulted positive, patient informed of positive result. In house test ordered, patient informed and swabbed, specimen sent to lab. [Electronically Signed on: 07/11/2021 16:04 EST] Kamini Tovar RN [Verified on: 07/11/2021 16:04 EST] Kamini Tovar RN [facility] Progress Note - Nurse Antigen test ordered, test resulted negative, patient informed of negative result. [Electronically Signed on: 07/11/2021 11:45 EST] Kamini Tovar RN [Verified on: 07/11/2021 11:45 EST] Kamini Tovar RN [facility] Measles (Rubeola) Imon 11-28 Measles (Rubeola) Im 3.49 Normal >1.09 [facility] Comment on above: Result Comment: Interpretation: IMMUNE Reference Range: <0.91 Not Immune 0.91-1.09 Equivocal >1.09 Immune Performed By: #### M EI, JUDY, VZI, TSPOT, MEÑO #### [address] [address] Train Attendant: Maury Watts MD Mumps,Immun,Abon 11-28-2020 Mumps,Immun,Ab 1.48 Normal >1.09 [facility] Comment on above: Result Comment: Interpretation: IMMUNE Reference Range: <0.91 Not Immune 0.91-1.09 Equivocal >1.09 Immune Performed By: #### M EI, JUDY, VZI, TSPOT, MEÑO #### [place] [id number] Train Attendant: Maury Watts MD T-Spoton 11-28-2020 T-Spot. TB Test Normal [facility] Comment on above: Result Comment: [address] [address] [facility] [address] [address] (NOTE) T-SPOT.TB Test Results --------- T-SPOT TB [...] M EI, JUDY, VZI, TSPOT, MEÑO #### [employer] [address] [place] [address] Train Attendant: Maury Watts MD VZ Immunityon 11-28-2020 VZ Immunity 2.04 Normal >1.09 [facility] Comment on above: Result Comment: Interpretation: IMMUNE Reference Range: <0.91 Not Immune 0.91-1.09 Equivocal >1.09 Immune Performed By: #### M EI, JUDY, VZI, TSPOT, MEÑO #### [facility] [address] [place] [address] [id number] Train Attendant: Maury Watts MD Rubella Ab, IgGon 11-25-2020 Rubella Ab, IgG 150.4 IU/mL Normal [facility] Comment on above: Result Comment: REFERENCE RANGE: <5.0 NON-REACTIVE (non-immune) 5.0 TO 9.9 EQUIVOCAL >=10.0 REACTIVE (immune) Performed By: #### M EI, JUDY, VZI, TSPOT, MEÑO #### [employer] [facility] [place] [address] Train Attendant: Maury Watts MD Rubella antibody, IgGOrdered By: Morales Ortiz on 11-25-2020 Rubella virus IgG Ql (S) 150.4 IU/mL [employer] Phone: Comment on above: REFERENCE RANGE: <5.0 NON-REACTIVE (non-immune) 5.0 TO 9.9 EQUIVOCAL >=10.0 REACTIVE (immune) [employer] Phone: Vital Signs Date Time Vital Sign Value Performing Clinician Faci lity 06-17-2024 15:36-0500 Body mass index (BMI) [Ratio] 34.93 kg/m2 Angie Cb DO Work Phone: [facility] 06-17-2024 15:36-0500 Body weight 86.64 kg Angie Cb DO Work Phone: [facility] 06-17-2024 15:36-0500 Diastolic blood pressure 72 mm[Hg] Angie Cb DO Work Phone: [facility] 06-17-2024 15:36-0500 Systolic blood pressure 116 mm[Hg] Angie Cb DO Work Phone: [facility] 05-20-2024 16:11-0500 Body mass index (BMI) [Ratio] 36 kg/m2 Angie Cb DO Work Phone: [facility] 05-20-2024 16:11-0500 Body weight 89.27 kg Angie Cb DO Work Phone: [facility] 05-20-2024 16:11-0500 Diastolic blood pressure 62 mm[Hg] Angie Cb DO Work Phone: [facility] 05-20-2024 16:11-0500 Systolic blood pressure 100 mm[Hg] Angie Cb DO Work Phone: [facility] 2024 09:48-0500 Body mass index (BMI) [Ratio] 35.48 kg/m2 Angie Cb DO Work Phone: [facility] 2024 09:48-0500 Body weight 88 kg Angie Cb DO Work Phone: [facility] 2024 09:48-0500 Diastolic blood pressure 72 mm[Hg] Angie Cb DO Work Phone: [facility] 2024 09:48-0500 Systolic blood pressure 122 mm[Hg] Angie Cb DO Work Phone: [facility] 04-02-2024 15:07-0400 Body mass index (BMI) [Ratio] 37.68 kg/m2 Chaya NEGRETE Work Phone: [facility] 04-02-2024 15:07-0400 Body weight 93.44 kg Chaya NEGRETE Work Phone: [facility] 04-02-2024 15:07-0400 Diastolic blood pressure 74 mm[Hg] Chaya NEGRETE Work Phone: [facility] 04-02-2024 15:07-0400 Systolic blood pressure 124 mm[Hg] Chaya NEGRETE Work Phone: [facility] 03-25-2024 11:19-0400 Body mass index (BMI) [Ratio] 40.79 kg/m2 Angie Cb DO Work Phone: [facility] 03-25-2024 11:19-0400 Body weight 101.15 kg Angie Cb DO Work Phone: [facility] 03-25-2024 11:19-0400 Diastolic blood pressure 82 mm[Hg] Angie Cb DO Work Phone: [facility] 03-25-2024 11:19-0400 Systolic blood pressure 132 mm[Hg] Angie Cb DO Work Phone: [facility] 03-17-2024 11:50-0400 Body mass index (BMI) [Ratio] 40.6 kg/m2 Angie Cb DO Work Phone: [facility] 03-17-2024 11:50-0400 Body weight 100.7 kg Angie Cb DO Work Phone: [facility] 03-17-2024 11:50-0400 Diastolic blood pressure 80 mm[Hg] Angie Cb DO Work Phone: [facility] 03-17-2024 11:50-0400 Systolic blood pressure 130 mm[Hg] Angie Cb DO Work Phone: [facility] 03-03-2024 13:42-0400 Body mass index (BMI) [Ratio] 40.42 kg/m2 Chaya NEGRETE Work Phone: [facility] 03-03-2024 13:42-0400 Body weight 100.25 kg Chaya NEGRETE Work Phone: [facility] 03-03-2024 13:42-0400 Diastolic blood pressure 80 mm[Hg] Chaya NEGRETE Work Phone: [facility] 03-03-2024 13:42-0400 Systolic blood pressure 138 mm[Hg] Chaya NEGRETE Work Phone: [facility] Healthcare Encounters Encounter Date Encounter Type Care Provider Facility Start: 06-17-2024 End: 06-17-2024 ambulatory ANGIE CB Not Available Start: 06-17-2024 End: 06-17-2024 Office outpatient visit 15 minutes Angie Cb DO Work Phone: [facility] Comment on above: Intrauterine contrac eptive device threads lost, initial encounter (Primary Dx); Intrauterine device surveillance; Encounter for intrauterine device placement Start: 06-17-2024 End: 06-17-2024 Bamboo flowsheet Angie Cb DO Work Phone: [facility] Start: 06-17-2024 End: 06-17-2024 Bamboo flowsheet Angie Cb DO Work Phone: [facility] Start: 05-20-2024 End: 05-20-2024 ambulatory ANGIE CB Not Available Start: 05-20-2024 End: 05-20-2024 Patient encounter procedure Angie Cb DO Work Phone: [facility] Comment on above: Encounter for insert ion of Mirena IUD Start: 2024 End: 2024 ambulatory ANGIE CB Not Available Start: 2024 End: 2024 care visit Angie Cb DO Work Phone: [facility] Comment on above: 6 weeks f ollow-up; S/P section Start: 04-02-2024 End: 04-02-2024 ambulatory CHAYA ROSAS Not Available Start: 04-02-2024 End: 04-02-2024 Postop follow up visit related to original px Chaya NEGRETE Work Phone: [facility] Comment on above: Postoperative visit; S/P section Start: 04-02-2024 End: 04-02-2024 Bamboo flowsheet Chaya NEGRETE Work Phone: [facility] Start: 04-02-2024 End: 04-02-2024 Bamboo flowsheet Chaya NEGRETE Work Phone: [facility] Start: 03-27-2024 End: 03-27-2024 Clinisync Result Encounter Angie Cb DO Work Phone: [facility] External Department Unsolicited Start: 03-27-2024 End: 03-27-2024 Clinisync Result Encounter Angie Cb DO Work Phone: [facility] External Department Unsolicited Start: 03-25-2024 End: 03-25-2024 Bamboo flowsheet Angie Cb DO Work Phone: [facility] Start: 03-25-2024 End: 03-25-2024 Bamboo flowsheet Angie Cb DO Work Phone: [facility] Start: 03-25-2024 End: 03-25-2024 Clinisync Result Encounter Angie Cb DO Work Phone: [facility] External Department Unsolicited Start: 03-25-2024 End: 03-25-2024 ambulatory ANGIE CB Not Available Start: 03-25-2024 End: 03-25-2024 flow sheet Angie Cb DO Work Phone: [facility] Comment on above: Third trimester preg bradly Start: 03-17-2024 End: 03-17-2024 Bamboo flowsheet Angie Cb DO Work Phone: [facility] Start: 03-17-2024 End: 03-17-2024 Bamboo flowsheet Angie Cb DO Work Phone: [facility] Start: 03-17-2024 End: 03-17-2024 flow sheet Angie Cb DO Work Phone: [facility] Comment on above: Third trimester preg bradly; Upper respiratory tract infection, unspecified type Start: 03-17-2024 End: 03-17-2024 ambulatory ANGIE CB Not Available Start: 03-05-2024 End: 03-05-2024 Clinisync Result Encounter Chaya NEGRETE Work Phone: [facility] External Department Unsolicited Start: 03-05-2024 End: 03-05-2024 Clinisync Result Encounter Chaya NEGRETE Work Phone: [facility] External Department Unsolicited Start: 03-03-2024 End: 03-03-2024 Bamboo flowsheet Chyaa NEGRETE Work Phone: [facility] Start: 03-03-2024 End: 03-03-2024 Bamboo flowsheet Chaya NEGRETE Work Phone: [facility] Start: 03-03-2024 End: 03-03-2024 Clinisync Result Encounter Chaya NEGRETE Work Phone: [facility] External Department Unsolicited Start: 03-03-2024 End: 03-03-2024 flow sheet Chaya NEGRETE Work Phone: [facility] Comment on above: Third trimester preg bradly; induced hypertension, antepartum Start: 03-03-2024 End: 03-03-2024 ambulatory CHAYA ROSAS Not Available Start: 02-18-2024 End: 02-18-2024 ambulatory ANGIE CB Not Available Start: 02-03-2024 End: 02-03-2024 ambulatory CHAYA ROSAS Not Available Start: 01-20-2024 End: 01-20-2024 [...] preprocedural respiratory examination DR ANGIE VIVAR . [facility] Start: 08-16-2022 End: 08-17-[address] ANGIE VIVAR . Facility:[facility] Start: 08-16-2022 End: 08-17-2022 Encounter for preprocedural respiratory examination DR ANGIE VIVAR . Facility:[facility] Start: 06-13-2022 End: 06-13-[address] ANGIE VIVAR . Facility:[facility] Start: 04-26-2022 End: 04-27-2022 ambulatory Bhavya Estrada Facility:[facility] Start: 12-22-2021 End: 12-22-2021 Departed [facility] [address] Start: 07-13-2021 End: 07-13-2021 [facility] Start: 07-12-2021 End: 07-12-[address] [facility] Facility:[facility] Start: 11-25-2020 End: 11-26-2020 ambulatory MORALES Hollandy [facility] Start: 11-25-2020 End: 11-25-2020 Subsequent hospital visit by physician [facility] Laboratory Procedures Date Procedure Procedure Detail Performing Clinician Start: 05-20-2024 Urine test visual color cmprsn meths Angie Cb DO Work Phone: Start: 05-20-2024 IUD INSERTION Angie María io DO Work Phone: Start: 03-27-2024 ALL CBC WITH AUTO DIFF Angie Cb DO Work Phone: Start: 03-25-2024 [facility] DRUG SCREEN RAPI D (URINE) Angie Cb DO Work Phone: Start: 03-25-2024 Urnls dip stick/tabl et rgnt non-auto w/o micrscp Angie Cb DO Work Phone: Start: 03-17-2024 Urnls dip stick/tabl et rgnt non-auto w/o micrscp Angie Cb DO Work Phone: Start: 03-05-2024 [facility] TOTAL PROTEIN 24 HOUR URINE Chaya NEGRETE Work Phone: Start: 03-03-2024 ALL CBC WITH AUTO DIFF Chaya NEGRETE Work Phone: Start: 03-03-2024 Urnls dip stick/tabl et rgnt non-auto w/o micrscp Chaya NEGRETE Work Phone: Start: 05-21-2023 Microscopic observat ion [Identifier] in Cervix by Cyto stain Angie Cb DO Work Phone: Start: 05-21-2023 Cytp cerv/vag auto t hin layer prep mnl screen Angie Cb DO Work Phone: Start: 06-13-2022 Microscopic observat ion [Identifier] in Cervix by Cyto stain Chaya NEGRETE Work Phone: Start: 11-25-2020 Antibody moses Ortiz MD Work Phone: H/O: section S/P sectio n Angie Vivar DO Work Phone: H/O: section S/P sectio n Chaya NEGRETE Work Phone: Plan of Treatment Date Care Activity Detail Author Start: 05-21-2028 Screening for malign ant neoplasm of cervix [facility] Start: 02-16-2028 Screening for malign ant neoplasm of cervix [facility] Start: 06-13-2025 Screening for malign ant neoplasm of cervix Pap Smear [facility] Start: 06-17-2024 End: 06-17-2024 Patient encounter procedure 06/17/2024 2:30 PM EST Office Visit [facility] [address] [place] [address] Angie Vivar, DO [address] [facility] [address] [place], [place] [address] [facility] Start: 06-17-2024 End: 06-17-2025 US Pelvis transvaginal US pelvis transvaginal Imaging Routine Intrauterine contraceptive device threads lost, initial encounter Encounter for intrauterine device placement Expected: 06/17/2024 (Approximate), Expires: 06/17/2025 [facility] Work Phone: Comment on above: Expected: 06/17/2024 (Approximate), Expires: 06/17/2025 Start: 05-26-2024 End: 05-26-2024 Patient encounter procedure 05/26/2024 10:00 AM EST Office Visit [facility] [address] [facility] [place] [phone] Angie Vivar, DO [address], [place] [id number] [facility] Start: 05-20-2024 End: 05-20-2024 Patient encounter procedure 05/20/2024 3:30 PM EST Procedure Visit [facility] [address] [facility] [place] [address] Angie Vivar, DO [address] [place] [address] [place] [address] [facility] Start: 03-25-2024 End: 03-25-2024 Patient encounter procedure 03/25/2024 11:10 AM EDT Routine [facility] [address] [facility] [address] Angie Vivar, DO [address] [place] [address] [place] [address] [facility] Start: 03-17-2024 End: 03-17-2025 Strep B DNA probe, amplification Strep B DNA probe, amplification Lab Routine Third trimester Expected: 03/17/2024 (Approximate), Expires: 03/17/2025 [facility] Work Phone: Comment on above: Expected: 03/17/2024 (Approximate), Expires: 03/17/2025 Start: 03-17-2024 End: 03-17-2024 Patient encounter procedure [facility] Comment on above: Arrived Start: 03-17-2024 End: 03-17-2024 Professional / ancillary services management 03/17/2024 11:00 AM EDT Ancillary Procedure [facility] [address] [place] [address] [place] [phone] [facility] Start: 03-08-2024 Influenza vaccination Influenza Vacc ine (#1) [facility] Healthcare Start: 03-03-2024 End: 03-03-2025 Alanine aminotransferase [Enzymatic activity/volume] in Serum or Plasma ALT Lab Routine induced hypertension, antepartum Expected: 03/03/2024 (Approximate), Expires: 03/03/2025 [facility] Healthcare Comment on above: Expected: 03/03/2024 (Approximate), Expires: 03/03/2025 Start: 03-03-2024 End: 03-03-2025 Aspartate aminotransferase [Enzymatic activity/volume] in Serum or Plasma AST Lab Routine induced hypertension, antepartum Expected: 03/03/2024 (Approximate), Expires: 03/03/2025 [facility] Healthcare Comment on above: Expected: 03/03/2024 (Approximate), Expires: 03/03/2025 Start: 03-03-2024 End: 03-03-2025 CBC W Auto Differential panel - Blood CBC and differential Lab Routine induced hypertension, antepartum Expected: 03/03/2024 (Approximate), Expires: 03/03/2025 [facility] Comment on above: Expected: 03/03/2024 (Approximate), Expires: 03/03/2025 Start: 03-03-2024 End: 03-03-2025 Creatinine [Mass/volume] in Serum or Plasma Creatinine Lab Routine induced hypertension, antepartum Expected: 03/03/2024 (Approximate), Expires: 03/03/2025 [facility] Work Phone: Comment on above: Expected: 03/03/2024 (Approximate), Expires: 03/03/2025 Start: 03-03-2024 End: 03-03-2025 Lactate dehydrogenase [Enzymatic activity/volume] in Serum or Plasma by Lactate to pyruvate reaction Lactate dehydrogenase Lab Routine induced hypertension, antepartum Expected: 03/03/2024, Expires: 03/03/2025 [facility] Comment on above: Expected: 03/03/2024 , Expires: 03/03/2025 Start: 03-03-2024 End: 03-03-2025 Protein, urine, 24 hour Protein, urine, 24 hour Lab Routine induced hypertension, antepartum Expected: 03/03/2024 (Approximate), Expires: 03/03/2025 [facility] Comment on above: Expected: 03/03/2024 (Approximate), Expires: 03/03/2025 Start: 03-03-2024 End: 03-03-2025 Pt and ptt Pt and ptt Lab Routine induced hypertension, antepartum Expected: 03/03/2024, Expires: 03/03/2025 [facility] Comment on above: Expected: 03/03/2024 , Expires: 03/03/2025 Start: 03-03-2024 End: 03-03-2025 Urate [Mass/volume] in Serum or Plasma Uric acid Lab Routine induced hypertension, antepartum Expected: 03/03/2024 (Approximate), Expires: 03/03/2025 [facility] Healthcare Comment on above: Expected: 03/03/2024 (Approximate), Expires: 03/03/2025 Start: 03-03-2024 End: 03-03-2025 Urea nitrogen [Mass/volume] in Serum or Plasma BUN Lab Routine induced hypertension, antepartum Expected: 03/03/2024, Expires: 03/03/2025 [facility] Comment on above: Expected: 03/03/2024 , Expires: 03/03/2025 Start: 03-03-2024 End: 03-03-2024 Patient encounter procedure 03/03/2024 1:40 PM EDT Routine [facility] [address] [address] Chaya Rosas PA [address] [place], [place] [id number] Arrived [facility] Comment on above: Arrived Start: 03-08-2021 Influenza vaccination Flu vacc ine (Season Ended) [employer] Phone: Start: 2005 COVID-19 Vaccine (1) COVID-19 Vaccin e (1) [employer] Phone: End: 11-25-2020 Mumps Antibody, IgG Mumps Antibody, IgG Lab Routine Once for 1 Occurrences starting 11/25/2020 until 11/25/2020 [employer] Phone: Comment on above: Once for 1 Occurrenc es starting 11/25/2020 until 11/25/2020 Mumps Antibody, IgG Mumps Antibo dy, IgG Lab Routine 11/25/2020 3:18 PM EDT [employer] Phone: End: 11-25-2020 Rubeola Antibody, IgG Rubeola Antibody, IgG Lab Routine Once for 1 Occurrences starting 11/25/2020 until 11/25/2020 [employer] Phone: Comment on above: Once for 1 Occurrenc es starting 11/25/2020 until 11/25/2020 Rubeola Antibody, IgG Rubeola An tibody, IgG Lab Routine 11/25/2020 3:18 PM EDT [employer] Phone: End: 11-25-2020 Tb antigen response gamma interferon t-cell susp T-Spot TB Test Lab Routine Once for 1 Occurrences starting 11/25/2020 until 11/25/2020 [employer] Phone: Comment on above: Once for 1 Occurrenc es starting 11/25/2020 until 11/25/2020 Tb antigen response gamma interferon t-cell susp T-Spot TB Test Lab Routine 11/25/2020 3:18 PM EDT [employer] Work Phone: End: 11-25-2020 Varicella Zoster Antibody, IgG Varicella Zoster Antibody, IgG Lab Routine Once for 1 Occurrences starting 11/25/2020 until 11/25/2020 [employer] Phone: Comment on above: Once for 1 Occurrenc es starting 11/25/2020 until 11/25/2020 Varicella Zoster Ant ibody, IgG Varicella Zoster Antibody, IgG Lab Routine 11/25/2020 3:18 PM EDT [employer] Work Phone: Immunizations Immunization Date Immunization Notes Care Provider Tavo carmona 04-13-2021 influenza virus vacc ine, unspecified formulation Chaya NEGRETE Work Phone: [facility] Payers Date Payer Category Payer Private Health Insurance [employer] [id number] 2022 [facility] BCBS [id number] 2022 Unknown BCBS BCBS [id number] 2022-Present [phone] [address] [place] [address] [id number] 2020 Unknown [id number] 2020 Unknown [id number] 1993 Unknown [id number] 2.16840.1.209737.3.579.2. 718 1993 Unknown [id number] 2.16840.1.694037.3.579.2. 593 1993 Unknown [id number] 2.840.1.273839.3.579.2. 593 1993 Unknown [id number] 2840.1.850208.3.579.2. 593 1993 Unknown [id number] 2.16840.1.712928.3.579.2. 1259 1993 Unknown [id number] 2.16840.1.678780.3.579.2. 1259 1993 Unknown [id number] 2.16840.1.221069.3.579.2. 1259 1993 Unknown [id number] 2.16840.1.077180.3.579.2. 1259 1993 Unknown [id number] 2.16.840.1.536939.3.579.2. 9 1993 Unknown [id number] 2.16.840.1.160650.3.579.2. 9 1993 Unknown [id number] 2.16.840.1.839210.3.579.2. 9 1993 Unknown [id number] 2.16.840.1.133714.3.579.2. 9 1993 Unknown [id number] 2.16.840.1.896151.3.579.2. 9 1993 Unknown [id number] 2.16.840.1.171912.3.579.2. 1258 1993 Unknown [id number] 2.16.840.1.336459.3.579.2. 9 1993 Unknown [id number] 2.16.840.1.925690.3.579.2. 1258 1993 Unknown [id number] 2.16.840.1.971742.3.579.2. 9 1993 Unknown [id number] 2.16.840.1.109052.3.579.2. 1258 1993 Unknown [id number] 2.16.840.1.332252.3.579.2. 1259 1959 Unknown [id number] Self-pay Self Pay [id number] Social History Date Type Detail Facility [facility] Work Phone: Start: 1995 Sex Assigned At Not on file [facility] Work Phone: Start: 1995 Sex Assigned At Female F [facility] Start: 01-13-2023 [facility] tobacco [facility] Start: 04-02-2024 End: 2024 Alcoholic beverage intake Current drinker of alcohol (finding) [facility] Start: 05-09-2023 End: 04-02-2024 History of Social function [facility] Start: 05-09-2023 End: 04-02-2024 Tobacco use panel [facility] Start: 01-13-2023 Alcohol Comment 1 or 2 drinks on typical day ; Caffeine: 1-2 cups/day coffee [facility] Start: 07-20-2023 [facility] Clinical Notes 06-11-2022 to 06-17-2024 Bhavya Jimenez LPN - 06/17/2024 2:30 PM Marvin Jimenez LPN - 05/20/2024 3:30 PM Marvin Jimenez LPN - 2024 9:20 AM CADEN Ontiveros - 04/02/2024 2:50 PM CADEN Arriola - 03/03/2024 1:40 PM EDT Note Date & Type Note Facility 06-17-2024 History of Present illness Narrative Reason for Appointment: Patient ID: Priscila Mercedes is a 29 y.o. female who presents for Contraception (Pt present today for a Mirena string check. Mirena was inserted on 05/26/2024.) Patient presents today for String Check Follow Up appointment. MEDICATIONS Current Outpatient Medications [...] Respiratory: Negative. Cardiovascular: Negative. Gastrointestinal: Negative. Genitourinary: Positive for vaginal bleeding. Musculoskeletal: Negative. Skin: Negative. Neurological: Negative. All [...] nursing note reviewed. Exam conducted with a folder gluer operator present. Vitals: Estimated body mass index is 34.93 kg/m as calculated from the following: Height as of 01/15/23: 5' 2 . Weight as of this encounter: 191 lb. BP: 116/72 Patient's last menstrual period was 05/03/2024 (approximate). ASSESSMENT & PLAN ICD-10-CM 1. Intrauterine contraceptive device threads lost, initial encounter T83.32XA US pelvis transvaginal 2. Intrauterine device surveillance Z30.431 3. Encounter for intrauterine device placement Z30.430 US pelvis transvaginal IUD String Check: Patient is doing well but has some complaints of bleeding and cramping following IUD placement. Patient presents today for IUD string check. Strings were not visualized and bleeding was visibly noted. Patient was given an order to have and ultrasound performed to confirm the placement of IUD. Follow Up: Patient is to return to the office for annual exam unless needed otherwise. Documented by Bhavya Jimenez LPN on behalf of: Angie Vivar DO documented in this encounter [facility] 05-20-2024 History of Present illness Narrative Associated Order(s): IUD Insertion Post-Procedure Diagnose(s): Encounter for insertion of Mirena IUD Reason for Appointment: Patient ID: Priscila Mercedes is a 29 y.o. female who presents [...] nursing note reviewed. Exam conducted with a folder gluer operator present. Vitals: Estimated body mass index is [...] by patient, parent, or legal power of regulatory attorney - including discussion of procedure risks [...] Angie Vivar DO documented in this encounter [facility] 2024 History of Present illness Narrative Reason for Appointment: Patient ID: Priscila Mercedes is a 29 y.o. female who presents for Care (Pt present today for 6 week post visit. Pt delivered on 03/25/2024 by C/S.) Patient presents today for Post Follow Up appointment. MEDICATIONS Current Outpatient Medications Medication Instructions Alcohol Swabs (Alcohol Prep Pad) 70 % pads 1 Pad, Topical, Daily, Use four times daily to check FSBS. Blood Glucose Monitoring Suppl (D-Care Glucometer) w/Device kit 1 kit, Does not [...] nursing note reviewed. Exam conducted with a folder gluer operator present. Vitals: Estimated body mass index is [...] Angie Vivar DO documented in this encounter [facility] 04-02-2024 History of Present illness Narrative Reason for Appointment: Patient ID: Priscila Mercedes is a 28 y.o. female who presents for Post-op Visit (Pt present today for 1 week post operative visit. S/p C/S 03/25/2024) Patient presents today for Post Follow Up appointment. and 1 Week Post Op Follow Up appointment. MEDICATIONS Current Outpatient Medications Medication Instructions Alcohol Swabs (Alcohol Prep Pad) 70 % pads 1 Pad, Topical, Daily, Use four times daily to check FSBS. Blood Glucose Monitoring Suppl (D-Care Glucometer) w/Device kit 1 kit, Does not [...] BIOPSY W/ LOOP ELECTRODE EXCISION 08/01/2022 SECTION, CLASSIC 03/25/2024 IUD REMOVAL 05/09/2018 IUD: Angie PAP [...] Exam Constitutional: Appearance: Normal appearance. She is normal weight. HENT: Head: Normocephalic. Cardiovascular: Rate and Rhythm: Normal rate. Pulses: Normal pulses. Pulmonary: Effort: Pulmonary effort is normal. Breath sounds: Normal breath sounds. Abdominal: Palpations: Abdomen is soft. Comments: Pfannenstiel incision healing well Musculoskeletal: General: Normal range of motion. Neurological: General: No focal deficit present. Mental Status: She is alert and oriented to person, place, and time. Skin: General: Skin is warm and dry. Psychiatric: Mood and Affect: Mood normal. Behavior: Behavior normal. Thought Content: Thought content normal. Judgment: Judgment normal. Vitals and nursing note reviewed. Vitals: Estimated body mass index is 37.68 kg/m as calculated from the following: Height as of 01/15/23: 5' 2 . Weight as of this encounter: 206 lb. BP: 124/74 No LMP recorded. ASSESSMENT & PLAN ICD-10-CM 1. Postoperative visit Z48.89 2. S/P section Z98.891 Patient presents today for a one week postop section check. Patient is doing well with minor complaints of pain. Incision has been noted as healing well with no signs and symptoms of infection. Follow Up: Patient is to return in 5 weeks for 6 week evaluation. Documented by CADEN Zafar on behalf of: CADEN Zafar documented in this encounter [facility] 03-25-2024 History of Present illness Narrative Reason for Appointment: Patient ID: Priscila Mercedes is a 28 y.o. female who presents for Routine Visit Patient presents today for Return OB appointment. MEDICATIONS Current Outpatient Medications Medication Instructions Alcohol Swabs (Alcohol Prep Pad) 70 % pads 1 Pad, Topical, Daily, Use four times daily to check FSBS. Blood Glucose Monitoring Suppl (D-Care Glucometer) w/Device kit 1 kit, Does not [...] nursing note reviewed. Exam conducted with a folder gluer operator present. Vitals: Estimated body mass index is [...] Angie Vivar DO documented in this encounter [facility] 03-17-2024 History of Present illness Narrative Reason for Appointment: Patient ID: Priscila Mercedes is a 28 y.o. female who presents for Routine Visit Patient presents today for Return OB appointment. MEDICATIONS Current Outpatient Medications Medication Instructions Alcohol Swabs (Alcohol Prep Pad) 70 % pads 1 Pad, Topical, Daily, Use four times daily to check FSBS. azithromycin (Zithromax Z-Jerel) 250 MG tablet As directed Blood Glucose Monitoring Suppl (D-Care Glucometer) w/Device kit 1 kit, Does not apply, Daily, Use four times daily to check FSBS. In the morning prior to breakfast & 1 hour after each meal for a total of 4times daily. labetalol (NORMODYNE) 100 mg, Oral, 2 times daily magnesium oxide (MAG-OX) 400 mg, Oral, Daily MV-Min-Fe Fum-FA-DHA ( 1 PO) Oral ALLERGIES [...] nursing note reviewed. Exam conducted with a folder gluer operator present. Vitals: Estimated body mass index is 40.6 kg/m as calculated from the following: Height as of 01/15/23: 5' 2 . Weight as of this encounter: 222 lb. BP: 130/80 Patient's last menstrual period was 07/06/2023. ASSESSMENT & PLAN ICD-10-CM 1. Third trimester Z34.93 Strep B DNA probe, amplification POCT urinalysis dipstick manually resulted Patient is doing well but has complaints of being tired and having maternal discomfort due to . Patient verbalized frequent movement and was instructed to perform kick counts three times per day. labor precautions were given, LARC consent was signed/declined, and GBS was obtained. Cervical check was performed and patient is 0cm dilated. Orders Placed This Encounter Procedures Strep B DNA probe, amplification POCT urinalysis dipstick manually resulted Follow Up: Patient is to return to office in 1 week for routine OB appointment Documented by Bhavya Jimenez LPN on behalf of: Angie Vivar DO documented in this encounter [facility] 03-03-2024 History of Present illness Narrative Reason for Appointment: Patient ID: Priscila Mercedes is a 28 y.o. female who presents for Routine Visit Patient presents today for Return OB appointment. MEDICATIONS Current Outpatient Medications Medication Instructions Alcohol Swabs (Alcohol Prep Pad) 70 % pads 1 Pad, Topical, Daily, Use four times daily to check FSBS. Blood Glucose Monitoring Suppl (D-Care Glucometer) w/Device kit 1 kit, Does not apply, Daily, Use four times daily to check FSBS. In the morning prior to breakfast & 1 hour after each meal for a total of 4times daily. labetalol (NORMODYNE) 100 mg, Oral, 2 times daily magnesium oxide (MAG-OX) 400 mg, Oral, Daily MV-Min-Fe Fum-FA-DHA ( 1 PO) Oral ALLERGIES [...] Exam Constitutional: Appearance: Normal appearance. She is normal weight. HENT: Head: Normocephalic. Cardiovascular: Rate and Rhythm: Normal rate. Pulses: Normal pulses. Pulmonary: Effort: Pulmonary effort is normal. Breath sounds: Normal breath sounds. Abdominal: Palpations: Abdomen is soft. Musculoskeletal: General: Normal range of motion. Neurological: General: No focal deficit present. Mental Status: She is alert and oriented to person, place, and time. Psychiatric: Mood and Affect: Mood normal. Behavior: Behavior normal. Thought Content: Thought content normal. Judgment: Judgment normal. Vitals and nursing note reviewed. Vitals: Estimated body mass index is 40.42 kg/m as calculated from the following: Height as of 01/15/23: 5' 2 . Weight as of this encounter: 221 lb. BP: 138/80 Patient's last menstrual period was 07/06/2023. ASSESSMENT & PLAN ICD-10-CM 1. Third trimester Z34.93 POCT urinalysis dipstick manually resulted 2. induced hypertension, antepartum O13.9 Creatinine Protein, urine, 24 hour Pt and ptt CBC and differential Uric acid Lactate dehydrogenase ALT AST BUN labetalol (Normodyne) 100 MG tablet Creatinine Protein, urine, 24 hour Pt and ptt CBC and differential Uric acid Lactate dehydrogenase AST BUN Return OB: Patient presents today for a routine obstetrics appointment. Patient is currently 34w3d . Patient states she is doing well but has complaints of being tired due to current . Patient has verbalizes frequent movement. labor precautions was discussed/given and patient was instructed to perform kick counts three times a day. Pt states blood pressure has been elevating at home with occasional headaches. BP today is 138/80. Pt doing nst and pbb as well as US. We will order labs and 24 hr urine today and call in script for labetalol Orders Placed This Encounter Procedures Creatinine Protein, urine, 24 hour Pt and ptt CBC and differential Uric acid Lactate dehydrogenase ALT AST BUN POCT urinalysis dipstick manually resulted Follow Up: Patient is to return to office in 2 week for routine OB appointment. Documented by CADEN Zafar on behalf of: CADEN Zafar documented in this encounter [facility] 08-23-2022 Note OPERATIVE NOTE OPERATION DATE: 08/23/2022 PROCEDURE: LEEP Procedure. PREOPERATIVE DIAGNOSIS: Cervical dysplasia. POSTOPERATIVE DIAGNOSIS: Cervical dysplasia. ANESTHESIA: General. SURGEON: Angie Vivar D.O. MAGAZINE FILLER: None. BLOOD LOSS: 5 mL. SPECIMEN: Ectocervical [...] to Recovery Room in stable condition. [facility] 06-11-2022 Note Entered by Diane Wadsworth on June 11, 2022 09:44:53 EST From: Diane Wadsworth To: [facility] #[id number] Sent: 06/11/2022 09:44:53 EST Subject: Medication Management Submitted: Complete:desogestrel-ethinyl estradiol (Velivet oral tablet) Signed by Diane Wadsworth 06/11/2022 09:44:00 EST Approved desogestrel-ethinyl estradiol (VELIVET 28 DAY TABLET) take 1 tablet by mouth once daily Qty: 84 tab(s) Days Supply: 84 Refills: 0 Substitutions Allowed Route To Pharmacy - [facility] #[id number] Signed by Diane Wadsworth Patient matched by Diane Wadsworth on 06/11/2022 09:41:06 EST From: [id number] To: Bhavya Estrada MD Sent: June 11, 2022 8:39:02 AM HAIRSPRING STUDDER Subject: Medication Management Due: June 12, 2022 12:05:33 AM HAIRSPRING STUDDER On Hold Pending Signature Drug: desogestrel-ethinyl estradiol (Velivet oral tablet), take 1 tablet by mouth once daily Quantity: 84 tab(s) Days Supply: 84 Refills: 1 Substitutions Allowed Notes from Pharmacy: Dispensed Drug: desogestrel-ethinyl estradiol (Velivet oral tablet), take 1 tablet by mouth once daily Quantity: 84 tab(s) Days Supply: 84 Refills: 0 Substitutions Allowed Notes from Pharmacy: [facility] Evaluation note No assessment inform ation available [facility] Work Phone: Evaluation note Diagnosis 6 weeks follow-up S/P section Other postprocedural status [facility] Diagnosis Encounter for insertion of Mirena IUD [facility]* Diagnosis Third trimester state, incidental [facility]* Diagnosis Intrauterine contraceptive device threads lost, initial encounter- Primary Intrauterine device surveillance Encounter for intrauterine device placement Insertion of intrauterine contraceptive device [facility]* Diagnosis Third trimester state, incidental induced hypertension, antepartum Transient hypertension of , antepartum [facility]* Diagnosis Third trimester state, incidental Upper respiratory tract infection, unspecified type [facility] Diagnosis Postoperative visit S/P section Other postprocedural status documented in this encounter [facility] Summary [...] section and content) DATE CREATED AUTHOR 12/02/2020 [facility] DATE CREATED AUTHOR AUTHOR'S ORGANIZ ATION 12/23/2021 [facility] DATE CREATED AUTHOR AUTHOR'S ORGANIZ ATION 06/11/2022 [facility] DATE CREATED AUTHOR AUTHOR'S ORGANIZ ATION 09/05/2022 [facility] DATE CREATED AUTHOR AUTHOR'S ORGANIZ ATION 06/20/2024 [facility] EPIC Care Teams (unrecognized sec tion and content) Team Status: Inactive Member Role Status Dates NON STAFF Primary Care Provider Active Dom Paulino Jr DO Attending Provider Active Team Status: Active Member Role Status Dates NON STAFF Primary Care Provider Active Physician Primary Care Sports Medicine Relationship Specialty Start Date End Date Bhavya Estrada MD [address] [place] [address] PCP - General Internal Medicine 01/15/23 Physician Primary Care Sports Medicine Relationship Specialty Start Date End Date Bhavya Estrada MD [address] [place] [address] PCP - General Internal Medicine 01/15/23 Physician Primary Care Sports Medicine Relationship Specialty Start Date End Date Bhavya Estrada MD [address] [place] [address] PCP - General Internal Medicine 01/15/23 Physician Primary Care Sports Medicine Relationship Specialty Start Date End Date Bhavya Estrada MD [address] [place] [address] PCP - General Internal Medicine 01/15/23 Physician Primary Care Sports Medicine Relationship Specialty Start Date End Date Bhavya Estrada MD [address] [place] [address] PCP - General Internal Medicine 01/15/23 Physician Primary Care Sports Medicine Relationship Specialty Start Date End Date Bhavya Estrada MD [address] [place] [id number] PCP - General Internal Medicine 01/15/23 Physician Primary Care Sports Medicine Relationship Specialty Start Date End Date Bhavya Estrada MD [address] [place] [id number] PCP - General Internal Medicine 01/15/23 Physician Primary Care Sports Medicine Relationship Specialty Start Date End Date Bhavya Estrada MD [address] [place] [id number] PCP - General Internal Medicine 01/15/23 Physician Primary Care Sports Medicine Relationship Specialty Start Date End Date Bhavya Estrada MD [address] [place] [id number] PCP - General Internal Medicine 01/15/23 Physician Primary Care Sports Medicine Relationship Specialty Start Date End Date Bhavya Estrada MD [address] [place] [id number] PCP - General Internal Medicine 01/15/23 Physician Primary Care Sports Medicine Relationship Specialty Start Date End Date Bhavya Estrada MD [address] [place] [id number] PCP - General Internal Medicine 01/15/23 Goals (unrecognized section and content) Goals may be documented in a n alternate section Reason for Visit (unrecogniz ed section and content) Reason Comments Care Pt present today for 6 week post visit. Pt delivered on 03/25/2024 by C/S. Reason Comments Contraception Mirena Insert Reason Comments Routine Visit Reason Comments Contraception Pt present today for a Mirena string check. Mirena was inserted on 05/26/2024. Reason Comments Post-op Visit Pt present today for 1 week post operative visit. S/p C/S 03/25/2024 FOR RECORDS PERTAINING TO PATIENTS WHO ARE [...] ON THE PRIMARY CLINICAL RECORDS. [facility] [employer] [facility]. provides no warranty or guarantee of the accuracy or completeness of information in this document.
--- NOTE | 2024-07-31 11:15 | XR_ITS ---
The [address] [address] Patient Name: MARISA ADAN MRN: [id number] date: 1995 Sex: F Assigned Patient Location: [facility] Current Patient Location: Accession/Order Number: [id number] Exam Date: 07/31/2024 11:08 Report Date: 08/03/2024 08:16 At the request of: NON-STAFF PHYSICIAN Procedure: XR cervical spine w flex/ext PROCEDURE: XR cervical spine w flex/ext DATE: 07/31/2024 11:08 AM EST COMPARISONS: None. CLINICAL INDICATION: 29 years Female Cervicalgia FINDINGS: There is no evidence of fractures, subluxation or other acute osseous abnormalities. No evidence of dynamic subluxation on flexion and extension views. No significant degenerative changes are identified. Visualized soft tissue show no abnormalities in these projections. XR/XR cervical spine w flex/ext IMPRESSION: These radiographic views of the cervical spine show no evidence of abnormalities. Electronically authenticated by: ROSALVA DAVIS Date: 08/03/2024 08:16
== END 2024-07-31 10:58 | disposition home or self-care (01) ==
LOC: RAD 10:59
DX: M54.2 Cervicalgia (principal)
CPT/HCPCS: 72052

== ENCOUNTER 2024-10-14 14:54 | Outpatient (REF) | payer OTHER, SELFPAY | END 2024-10-14 14:55 | disposition home or self-care (01) | LOC: LAB 14:54 | PROVIDERS: Visit Provider Physician Assistant | DX: Z01.419 Encounter for gynecological examination (general) (routine) without abnormal findings (principal) | CPT/HCPCS: 88175 ==